=== PATIENT | male | born 1980 | race Caucasian/White ===

== ENCOUNTER 2024-08-19 10:02 | Inpatient (IN) | payer BC, OTHER ==
[~2024-08-19] VITALS: Ht 188 cm; Wt 109.0 kg
[2024-08-19] VITALS (24 sets, daily range): BP systolic 77–99; BP diastolic 36–62; PULSE 85–100; RESP 12–24; TEMP 98.9–99; O2SAT 90–100
--- NOTE | 2024-08-19 10:39 | ECG ---
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
--- NOTE | 2024-08-19 10:51 | ED.PDOC ---
History of present illness HPI Comments 44 y/o M, with PMHX of HTN, brought in by sister presents to the ED for CC of hyperglycemia. Per sister, patient has been having abnormally high blood sugar readings with associated symptoms constipation, disorientation, excessive thirst, and ataxia [id number]. Patient's sister comments, that patient received an ozempic shot which caused him to be lethargic and denied second dosage. Patient's sister endorses, new onset symptoms of incontinence starting today (08/19/24). Patient's blood pressure in triage read at 505 on glucometer. Patient unable to answer questions appropriately at this time no other symptoms or PMHX obtainable. Chief Complaint: Hyperglycemia Time Seen by MD: 10:40 Primary Care Provider: JAILYN History of present illness: Nurses Notes, Medications, Allergies Allergies: Coded Allergies: NO KNOWN ALLERGIES (Unverified , 10/02/14) Information Source: Relative (Sibling) Mode of Arrival: Wheelchair Timing: Days Duration: Since onset Prehospital treatment: None [place]: Confusion Symptoms: Confusion History of: Diabetes Modifying factors: Nothing Associated signs and symptoms: None Past Medical History PAST MEDICAL HISTORY: DM Surgical History: Denies all surgeries Family History Family History: No family hx of HTN Social History Smoker: Cigarettes, Less Than 1 Pack/Day Alcohol: Rarely Drugs: Denies Drug Use Lives In: Home Constitutional: denies: chills, diaphoresis, fatigue, fever, malaise, sweats, weakness, others EENTM: denies: blurred vision, double vision, ear bleeding, ear discharge, ear drainage, ear pain, ear ringing, eye pain, eye redness, hearing loss, mouth pain, mouth swelling, nasal discharge, nose bleeding, nose congestion, nose pain, photophobia, tearing, throat pain, throat swelling, voice changes, others Respiratory: denies: cough, hemoptysis, orthopnea, SOB at rest, shortness of breath, SOB with excertion, stridor, wheezing, others Cardiovascular: denies: chest pain, dizzy spells, diaphoresis, Dyspnea on exertion, edema, irregular heart beat, left arm pain, lightheadedness, palpitations, PND, syncope, others Gastrointestinal: denies: abdomen distended, abdominal pain, blood streaked bowels, constipated, diarrhea, dysphagia, difficulty swallowing, hematemesis, melena, nausea, poor appetite, poor fluid intake, rectal bleeding, rectal pain, vomiting, others Genitourinary: reports: frequency, incontinence; denies: burning, dysuria, flank pain, hematuria, penile discharge, penile sore, pain, testicle pain, testicle swelling, urgency, others Neurological: reports: others (disorientation); denies: dizziness, fainting, headache, left sided numbness, left sided weakness, numbness, paresthesia, pre- existing deficit, right sided numbness, right sided weakness, seizure, speech problems, tingling, tremors, weakness Musculoskeletal: denies: back pain, gout, joint pain, joint swelling, muscle pain, muscle stiffness, neck pain, others Integumetry: denies: bruises, change in color, change in hair/nails, dryness, laceration, lesions, lumps, rash, wounds, others Allergic/Immunocompromised: denies: Difficulty Healing, Frequent Infections, Hives, Itching, others Hematologic/Lymphatic: denies: anemia, blood clots, easy bleeding, easy bruising, swollen glands, others Endocrine: reports: excessive thirst; denies: excessive hunger, excessive sweating, excessive urination, flushing, intolerance to cold, intolerance to heat, unexplained weight gain, unexplained weight loss, others Psychiatric: denies: anxiety, bipolar disorder, depression, hopeless, panic disorder, schizophrenia, sleepless, suicidal, others All Other Systems: Reviewed and Negative Physical Exam General Appearance: Moderate Distress HEENT: Pale Conjuntivae (L), Pale Conjuntivae (R), Pharynx Normal, TMs Normal Neck: Full Range of Motion, Non-Tender, Normal, Normal Inspection Respiratory: Chest Non-Tender, Lungs Clear, No Accessory Muscle Use, No Respiratory Distress, Normal Breath Sounds Cardiovascular: No Edema, No JVD, No Murmur, No Gallop, Normal Peripheral Pulses, Regular Rate/Rhythm Breast Exam: Deferred Gastrointestinal: No Organomegaly, Non Tender, No Pulsatile Mass, Normal Bowel Sounds, Soft Genitalia: Deferred Pelvic: Deferred Rectal: Deferred Extremities: No calf tenderness, Normal capillary refill, No pedal edema Musculoskeletal : Apperance: Normal Neurologic: Alert, inspector machine 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 Was a procedure done?: No EKG EKG : Pulse Rate (adult): 87 [place]: Normal Cardiac Rhythm: NSR Block: None Hypertrophy: None ST: Normal Differential Diagnosis (DM) Differential Diagnosis: DKA, Hyperglycemia X-Ray, Labs, Meds, VS Vital Signs Date Time Temp Pulse Resp B/P (MAP) Pulse Ox O2 Delivery O2 Flow Rate FiO2 08/19/24 11:25 98.3 91 17 109/66 (80) 95 98.3 08/19/24 11:25 98.3 91 18 106/66 (79) 95 98.3 08/19/24 11: 91 18 95 Room Air 08/19/24 10:52 87 08/19/24 10:35 87 08/19/24 10:33 98.2 85 20 102/79 (87) 96 98.2 Lab Test 08/19/24 11:14 08/19/24 11:13 08/19/24 11:05 08/19/24 11:00 Range/Units POC Glucose 546 *H 501 *H 70-106 mg/dl Blood Gas Specimen Type Arterial Blood Gas Sample Site Right radial Blood Gas Patient Temperature 37.0 Arterial Blood Date Drawn [id number] Arterial Blood pH 7.611 *H 7.350-7.450 Arterial Blood Partial Pressure CO2 38.9 35.0-48.0 mmHg Arterial Blood Partial Pressure O2 67.6 L 83.0-108.0 mmHg Arterial Blood HCO3 38.3 H 21.0-28.0 mmol/L Arterial Blood Oxygen Saturation 94.4 94.0-98.0 % Arterial Blood Base Excess 15.5 H -2.0-3.0 mmol/L Arterial Blood Oxyhemoglobin 87.2 L 94.0-98.0 % Arterial Blood Carboxyhemoglobin 7.4 H 0.5-1.5 % Arterial Blood Methemoglobin 0.2 0.0-1.5 % Jasvir Test Yes Blood Gas Total Hemoglobin 15.20 13.5-17.5 g/dL Blood Gas Modality Room air Blood Gas Spontaneous Rate 18 FiO2 % 21.0 Blood Gas Critical Value Read Back Yes Blood Gas Notified Whom Md chapo mcdonnell Blood Gas Notified Time [id number] Blood Gas Notified By Rt b giron White Blood Count 37.8 *H 4.4-10.8 10^3/uL Red Blood Count 4.87 4.5-5.90 10^6/uL Hemoglobin 14.8 13.5-17.5 g/dL Hematocrit 41.9 41.0-53.0 % Mean Corpuscular Volume 86.1 80.0-100.0 fL Mean Corpuscular Hemoglobin 30.4 28.0-32.0 pg Mean Corpuscular Hemoglobin Concent 35.3 32.0-36.0 g/dL Red Cell Distribution Width 12.9 11.8-14.3 % Platelet Count 240 140-450 10^3/uL Mean Platelet Volume 10.1 6.9-10.8 fL Neutrophils (%) (Auto) 37.0-80.0 % Lymphocytes (%) (Auto) 10.0-50.0 % Monocytes (%) (Auto) 0.0-12.0 % Basophils (%) (Auto) 0.0-2.0 % Neutrophils # (Auto) 1.6-8.6 10 ^3/uL Lymphocytes # (Auto) 0.4-5.4 10 ^3/uL Monocytes # (Auto) 0-1.3 10 ^3/uL Differential Total Cells Counted Pending Neutrophils % (Manual) Pending Band Neutrophils % (Manual) Pending Lymphocytes % (Manual) Pending Monocytes % (Manual) Pending Eosinophils % (Manual) Pending Basophils % (Manual) Pending Metamyelocytes % (manual) Pending Myelocytes % (Manual) Pending Promyelocytes % (Manual) Pending Blast Cells % (Manual) Pending Reactive Lymphocytes Pending Platelet Estimate Pending Sodium Level 114 *L 136-145 mmol/L Potassium Level 2.9 L 3.5-5.1 mmol/L Chloride Level 51 L 98-107 mmol/L Carbon Dioxide Level > 40 *H 20-31 mmol/L Anion Gap 22.64182 H 5-15 Blood Urea Nitrogen 112 *H 9-23 mg/dL Creatinine 8.94 H 0.700-1.30 mg/dL Glomerular Filtration Rate Calc 7 >90 mL/min BUN/Creatinine Ratio 12.5 10.0-20.0 Serum Glucose 497 *H 74-106 mg/dL Lactic Acid Level 5.7 *H 0.4-2.0 mmol/L Calcium Level 10.9 H 8.7-10.4 mg/dL Beta-Hydroxybutyric Acid 0.498 H < 0.4 mmol/L Plasma/Serum Blood Alcohol < 3.0 <10 mg/dL Test 08/19/24 10:24 08/19/24 10:23 Range/Units POC Glucose 494 *H 502 *H 70-106 mg/dl Current Medications Medications (Trade) Dose Ordered Sig/Nikki Route Start Time Stop Time Status Last Admin Sodium Chloride 1,000 ml @ 1,000 mls/hr Q1H ONCE IVB 08/19/24 10:45 08/19/24 11:44 DC 08/19/24 11:18 Insulin Human Regular (InsuLIN R) 5 units ONCE ONCE IV 08/19/24 10:45 08/19/24 10:46 DC 08/19/24 11:24 CXR: IMPRESSION: No acute intrathoracic process. IV Hep-Lock was established. The patient was being given normal saline per sepsis protocol. The patient is blood sugar was over 500 on the Accu-Chek in 497 on the serum The patient was BUN is 112 The creatinine is 8.94 Because of the findings, the patient has a Friedman catheter being placed. The patient was also hyponatremic at 114 We are starting the patient on normal saline 3% as well as potassium The chloride level is significantly decreased at 51 The patient was diagnosis at this time is metabolic alkalosis because the CO2 is greater than 40 and the anion gap is 22.9 The 1st lactic acid level came back at 5.7 We will continue to hydrate the patient per sepsis protocol After blood cultures x2 were drawn, the patient was started on vancomycin and Rocephin IV piggyback An ABG was done showing a pH of 7.61 and a pCO2 and PO2 of 38 and 67 respectively We will continue to hydrate the patient and the patient will be admitted at this time. We have discussed the findings with the patient and they understand and agree with the management. Images Reviewed?: Images reviewed and evaluated by me Time of 1ST Reevaluation: 11:20 Reevaluation 1ST: Unchanged Patient Education/Counseling: Diagnosis, Treatment Family Education/Counseling: No Family Present Departure 1 Departure Time of Disposition: 12:12 Impression: Primary Impression: Metabolic alkalosis Additional Impressions: Diabetes type 2, uncontrolled Qualified Codes: E11.65 - Type 2 diabetes mellitus with hyperglycemia Hypokalemia Hyponatremia Hypochloremia Disposition: 09 ADMITTED INPATIENT Admit to: ICU Condition: Fair Critical Care Note Critical Care Time?: Yes (45 min-critical care time only) Stability Stability form required: Yes Unstable for transfer: ICU, CCU, PCU, LAURA (Intensive VS monitoring), ED Physician Assesment (Clinical assesment) Heart Score Heart Score: Heart Score Response (Comments) Value History N/A 0 EKG N/A 0 Age N/A 0 Risk Factors N/A 0 Troponin N/A 0 Total 0 I personally scribed for TRAVIS MCDONNELL MD ([email or web address]) on 08/19/24 at 10:51. Electronically submitted by Deisy Pizano ([email or web address]). I personally scribed for TRAVIS MCDONNELL MD (DVPASLE) on 08/19/24 at 10:52. Electronically submitted by Deisy Pizano ([employer]). I personally scribed for TRAVIS MCDONNELL MD (DVPASLE) on 08/19/24 at 11:12. Electronically submitted by Deisy Pizano ([employer]). TRAVIS MCDONNELL MD Aug 19, 2024 10:51
--- NOTE | 2024-08-19 11:04 | DVH ---
EXAM: XY CHEST PORTABLE HISTORY: pain 44-year-old male with chest pain. COMPARISON: None TECHNIQUE: Portable AP view of the chest was performed. FINDINGS: No pneumothorax, consolidative infiltrates, or pulmonary edema. The heart is borderline enlarged. IMPRESSION: No acute intrathoracic process.
[2024-08-19 11:11] LABS: Base Excess 15.5 mmol/L (-2.0-3.0)
[2024-08-19] MEDS: SODIUM CHLORIDE 0.9% 1,000 ML IVB ONE (11:18)
[2024-08-19] MEDS: InsuLIN REG 1unit/0.01ml Soln (100units/ml) IV ONE (11:24)
[2024-08-19 11:27] LABS: Hematocrit 41.9 % (41.0-53.0); Hemoglobin 14.8 g/dL (13.5-17.5); Mean Corpuscular Hemoglobin 30.4 pg (28.0-32.0); Mean Corpuscular Hgb Conc. 35.3 g/dL (32.0-36.0); Mean Corpuscular Volume 86.1 fL (80.0-100.0); Platelet Count (auto) 240 10^3/uL (140-450); Red Blood Cells 4.87 10^6/uL (4.5-5.90); Red Cell Distribution Width 12.9 % (11.8-14.3)
[2024-08-19 11:34] LABS: White Blood Cell 37.8 10^3/uL (4.4-10.8)
[2024-08-19 11:35] LABS: Basophils % (manual) 0 (0.0-2.0); Blast Cells 0; Eosinophils % (manual) 0 (0-7); Metamyelocytes % 0; Myelocytes % 0; Promyelocytes % 0; Reactive Lymphocytes 0
[2024-08-19 11:38] LABS: BUN/Creatinine Ratio 12.5 (10.0-20.0)
[2024-08-19 11:41] LABS: Anion Gap 22.99999 (5-15); Blood Alcohol < 3.0 mg/dL (<10); Calcium 10.9 mg/dL (8.7-10.4); Chloride 51 mmol/L (98-107); Potassium 2.9 mmol/L (3.5-5.1)
[2024-08-19 11:43] LABS: Blood Urea Nitrogen 112 mg/dL (9-23); Carbon Dioxide > 40 mmol/L (20-31); Glucose 497 mg/dL (74-106); Lactic Acid w/Reflex 5.7 mmol/L (0.4-2.0); Sodium 114 mmol/L (136-145)
[2024-08-19] MEDS: cefTRIAXone 1GM/50ML D5W 50 ML IV ONE (12:24)
[2024-08-19] MEDS: VANCOMYCIN 1GM/200ML PM 200 ML IV ONE (12:24)
[2024-08-19] MEDS ORDERED: POTASSIUM CHL 20MEQ/100ML 100 ML IV ONE (12:30)
[2024-08-19] MEDS: SODIUM CHLORIDE 0.9% 2,450 ML IV ONE (12:43)
[2024-08-19 13:03] LABS: Band Neutrophils % (manual) 1
[2024-08-19 13:04] LABS: Lymphocytes % (manual) 10 (10.0-50.0); Monocytes % (manual) 7 (0-12); Platelet Estimate Adequate
[2024-08-19] MEDS ORDERED: MORPHINE SULFATE INJ 2 MG/ml SYRG IV PRN (13:30)
[2024-08-19] MEDS ORDERED: ONDANSETRON HCL 4 MG/2 ML VIAL IV PRN (13:30)
[2024-08-19] MEDS ORDERED: NITROGLYCERIN 0.4 MG SL TAB SL PRN (13:30)
[2024-08-19] MEDS: SODIUM CHL 3% 500 ML IV ONE (13:50)
[2024-08-19 13:51] LABS: Urine Amorphous Crystal FEW /hpf (None Seen); Urine Bacteria FEW /hpf (None Seen); Urine Blood 1+ /uL (Negative); Urine Clarity Ex.Turbid (Clear); Urine Color Colorless (Yellow); Urine Mucus FEW (None Seen); Urine Protein, UAD 1+ (Negative); Urine Specific Gravity 1.017 (1.001-1.035); Urine Sperm PRESENT /hpf (None Seen); Urine Squamous Epithelial Cell FEW /hpf (<5); Urine Urobilinogen Normal (Negative); Urine WBC 16 /HPF (0-3); Urine pH 6.5 (5.0-9.0)
[2024-08-19 13:55] LABS: Creatinine, Urine 77.13 mg/dL (30.0-125.0)
[2024-08-19 13:57] LABS: Amphetamine Screen, Urine Neg (NEGATIVE); Barbiturate Scree,Urine Neg (NEGATIVE); Benzodiazephine Screen, Urine Neg (NEGATIVE); Cannabinoid Screen, Urine Neg (NEGATIVE); Cocaine Screen, Urine Neg (NEGATIVE); Opiate Scree,Urine Neg (NEGATIVE); Phencyclidine Screen, Urine Neg (NEGATIVE)
--- NOTE | 2024-08-19 14:43 | DVHHP2 ---
History of Present Illness Reason for Visit: [facility] History of Present Illness Jose Angel Moore is a 44-year-old male with past medical history of diabetes, was brought in by family for altered level of consciousness and hyperglycemia. On assessment patient is only able to tell me his name, he is not able to tell me his birthday, where he is at, or why he is here. Per patient's sister, he started taking ozempic about 11-12 days ago. He received his first and only injection and has been sick since. She states he has been vomiting for the last 11-12 days without any improvement. Yesterday she noticed his blood sugars were elevated and he was not acting like himself. The patient lives with his father, who he usually helps take care of him. Today his father called his sister stating he was wondering around the house not sure where he was. His sister came over and brought him to the hospital. His sister knows that he is diabetic, but does not know if he has any other medical diagnosis or what medications he takes. Patient began requiring more oxygen, was on 15 L non-rebreather with O2 sats 88- 91%. Patient agreeable to intubation. Once patient was placed flat for intubation he began vomiting copious amounts of coffee ground emesis. Patient was suctioned and successfully intubated. Dr. Chavez was called to bedside and did a bronchoscopy. OG tube was placed. Blood pressure is elevated. Will order nicardipine drip. Endocrine: Diabetes Past Surgical History: Other (left foot) Smoke: 1 pack per day ALCOHOL: none Drugs: None Lives: with Family Domestic Violence: Neg Review of Systems Constitutional: Yes: Malaise; No: Fever, Chills, Sweats, Weakness, Other Eyes: No: Pain, Vision change, Conjunctivae inflammation, Eyelid inflammation, Other, Redness ENT: No: Ear pain, Ear discharge, Nose pain, Nose discharge, Nose congestion, Mouth pain, Mouth swelling, Throat pain, Throat swelling, Other Respiratory: No: Cough, Dry, Shortness of breath, SOB with excertion, Wheezing, Hemoptysis, Pleuritic Pain, Sputum, Wheezing, Other Cardiovascular: No: Chest Pain, Palpitations, Orthopnea, Paroxysmal Noc. Dyspnea, Edema, Lt Headedness, Other Gastrointestinal: Nausea, Vomiting, Constipation; No: Abdominal Pain, Diarrhea, Melena, Hematochezia, Other Genitourinary: No Dysuria, No Frequency, No Incontinence, No Hematuria, No Retention, No Other Musculoskeletal: No: other, neck pain, shoulder pain, arm pain, back pain, hand pain, leg pain, foot pain Skin: No: Rash, Lesions, Jaundice, Bruising, Other Neurological: Weakness, Incoordination, Change in speech, Confusion; No: Numbness, Seizures, Other Allergies: Coded Allergies: NO KNOWN ALLERGIES (Unverified , 10/02/14) Medications Current Medications Medications Dose Ordered Sig/Nikki Route Start Time Stop Time Status Last Admin Dose Admin Ondansetron HCl 4 mg Q4HP PRN IV 08/19/24 13:30 UNV Enoxaparin Sodium 40 mg DAILY SC 08/20/24 10:00 UNV Nitroglycerin 0.4 mg Q5MINP PRN SL 08/19/24 13:30 UNV Morphine Sulfate 2 mg Q30M PRN IV 08/19/24 13:30 UNV Exam Vital Signs Vital Signs Date Time Temp Pulse Resp B/P (MAP) Pulse Ox O2 Delivery O2 Flow Rate FiO2 08/19/24 11:25 98.3 91 17 109/66 (80) 95 98.3 08/19/24 11:25 Room Air General Appearance: Alert, Other (Patient can tell me his name, but not his ) HEENT: Atraumatic, PERRLA Respiratory: Clear to auscultation, Normal air movement Cardiovascular: Regular rate, Normal S1, Normal S2 Labs/Xrays Labs Test 08/19/24 13:07 08/19/24 11:14 08/19/24 11:05 08/19/24 11:00 Range/Units POC Glucose 546 *H 70-106 mg/dl Blood Gas Specimen Type Arterial Blood Gas Sample Site Right radial Blood Gas Patient Temperature 37.0 Arterial Blood Date Drawn [id number] Arterial Blood pH 7.611 *H 7.350-7.450 Arterial Blood Partial Pressure CO2 38.9 35.0-48.0 mmHg Arterial Blood Partial Pressure O2 67.6 L 83.0-108.0 mmHg Arterial Blood HCO3 38.3 H 21.0-28.0 mmol/L Arterial Blood Oxygen Saturation 94.4 94.0-98.0 % Arterial Blood Base Excess 15.5 H -2.0-3.0 mmol/L Arterial Blood Oxyhemoglobin 87.2 L 94.0-98.0 % Arterial Blood Carboxyhemoglobin 7.4 H 0.5-1.5 % Arterial Blood Methemoglobin 0.2 0.0-1.5 % Jasvir Test Yes Blood Gas Total Hemoglobin 15.20 13.5-17.5 g/dL Blood Gas Modality Room air Blood Gas Spontaneous Rate 18 FiO2 % 21.0 Blood Gas Critical Value Read Back Yes Blood Gas Notified Whom Md chapo kirkpatrick Blood Gas Notified Time [id number] Blood Gas Notified By Rt svetlana giron White Blood Count 37.8 *H 4.4-10.8 10^3/uL Red Blood Count 4.87 4.5-5.90 10^6/uL Hemoglobin 14.8 13.5-17.5 g/dL Hematocrit 41.9 41.0-53.0 % Mean Corpuscular Volume 86.1 80.0-100.0 fL Mean Corpuscular Hemoglobin 30.4 28.0-32.0 pg Mean Corpuscular Hemoglobin Concent 35.3 32.0-36.0 g/dL Red Cell Distribution Width 12.9 11.8-14.3 % Platelet Count 240 140-450 10^3/uL Mean Platelet Volume 10.1 6.9-10.8 fL Neutrophils (%) (Auto) 37.0-80.0 % Lymphocytes (%) (Auto) 10.0-50.0 % Monocytes (%) (Auto) 0.0-12.0 % Basophils (%) (Auto) 0.0-2.0 % Neutrophils # (Auto) 1.6-8.6 10 ^3/uL Lymphocytes # (Auto) 0.4-5.4 10 ^3/uL Monocytes # (Auto) 0-1.3 10 ^3/uL Differential Total Cells Counted 100.0 100 Neutrophils % (Manual) 82 H 37.0-80.0 Band Neutrophils % (Manual) 1 Lymphocytes % (Manual) 10 10.0-50.0 Monocytes % (Manual) 7 0-12 Eosinophils % (Manual) 0 0-7 Basophils % (Manual) 0 0.0-2.0 Metamyelocytes % (manual) 0 Myelocytes % (Manual) 0 Promyelocytes % (Manual) 0 Blast Cells % (Manual) 0 Reactive Lymphocytes 0 Platelet Estimate Adequate Sodium Level 114 *L 136-145 mmol/L Potassium Level 2.9 L 3.5-5.1 mmol/L Chloride Level 51 L 98-107 mmol/L Carbon Dioxide Level > 40 *H 20-31 mmol/L Anion Gap 22.64717 H 5-15 Blood Urea Nitrogen 112 *H 9-23 mg/dL Creatinine 8.94 H 0.700-1.30 mg/dL Glomerular Filtration Rate Calc 7 >90 mL/min BUN/Creatinine Ratio 12.5 10.0-20.0 Serum Glucose 497 *H 74-106 mg/dL Calcium Level 10.9 H 8.7-10.4 mg/dL Beta-Hydroxybutyric Acid 0.498 H < 0.4 mmol/L Plasma/Serum Blood Alcohol < 3.0 <10 mg/dL EXAM: XY CHEST PORTABLE FINDINGS: No pneumothorax, consolidative infiltrates, or pulmonary edema. The heart is borderline enlarged. IMPRESSION: No acute intrathoracic process. Assessment/Plan Assessment/Plan Assessment: Metabolic alkalosis, Lactic acidosis, Acute Kidney failure, Diabetic ketoacidosis, Leukocytosis, Hyponatremia, Hypokalemia, Plan: Admit to ICU, Nephrology consult, Replace Potassium, Replace Sodium, BMP at 1500, IV hydration, IV antibiotics, Blood cultures, Urine cultures, Urine creat, NA, Place Friedman catheter, Manage/Monitor electrolytes closely, NPO, Antiemetics, CT Abdomen/Pelvis, Patient intubated, Pulmonology consulted, Bronchoscopy, Plan discussed with: Patient, Other (Sister) My Orders Orders - MANUEL HUTTON Procedure Category Date Status Time Drug Screen LAB 08/19/24 Logged 12:25 Urine Sodium LAB 08/19/24 Logged 12:35 Urine Creatinine LAB 08/19/24 Logged 12:35 Admit ADMIT 08/19/24 Transmitted 13:24 Code Status CODE 08/19/24 Transmitted 13:24 Ondansetron Hcl PHA 08/19/24 Logged (Zofran) 13:30 Enoxaparin Sodium PHA 08/20/24 Transmitted (Lovenox) 10:00 Fall Risk Precautions ROHINI 08/19/[address] 13:24 Complete Blood Count LAB 08/20/24 Verified 04:00 Comprehensive LAB 08/20/24 Verified Metabolic Panel 04:00 Npo (Nothing By DIET 08/19/24 Transmitted Mouth) Diet Lunch Condition: Critical ROHINI 08/19/24 In Process 13:24 Nitroglycerin PHA 08/19/24 Transmitted Sublingual (Ntrostat 13:30 Morphine Sulfate PHA 08/19/24 Transmitted Injection 13:30 Stat Ekg For Chest ROHINI 08/19/24 In Process Pain 13:24 Notify Md Of Changes [facility] 08/19/24 In Process From Base 13:24 Tax Intern For [facility] 08/19/24 In Process 24 Hours 13:24 Emergency Dysrhythmia [facility] 08/19/24 In Process Protocol 13:24 Rhythm Strips Once ROHINI 08/19/24 In Process Every Shift 13:24 Oxygen By Nasal RT 08/19/24 Transmitted Cannula 13:24 *Dr. Jimenez [facility] CONS 08/19/24 Transmitted -[place] 13:24 Basic Metabolic Panel LAB 08/19/24 Verified 15:00 Date of Service: Aug 19, 2024 Billing Provider: MANUEL HUTTON Common Visit Codes: [id number] INP/OBS CARE (HIGH) MANUEL HUTTON Aug 19, 2024 14:43
[2024-08-19] MEDS: SODIUM CHLORIDE 0.9% 1,000 ML IV SCH (14:46)
[2024-08-19] MEDS: POTASSIUM CHL 20MEQ/50ML 50 ML IV ONE (14:46)
[2024-08-19 15:40] LABS: Calcium 9.6 mg/dL (8.7-10.4)
[2024-08-19 15:45] LABS: BUN/Creatinine Ratio 14.8 (10.0-20.0)
[2024-08-19] MEDS ORDERED: DEXTROSE (50%) 50ML SYRG IV PRN ×2 (15:45→19:15)
[2024-08-19 15:46] LABS: Chloride 58 mmol/L (98-107)
--- NOTE | 2024-08-19 15:51 | DVHINCON2 ---
Date of service: Aug 19, 2024 Reason for Consultation Acute kidney injury History of Present Illness 44-year-old male with past medical history of diabetes patient was a poor historian in his currently confused. But he does reports throwing up over the last several days. Per EMS records patient noted to have significant hyperglycemia and abnormal labs. Nephrology consulted for acute kidney injury and electrolyte abnormalities. Patient's baseline renal function is unknown as his last known blood draw in this hospital was approximately 10 years ago. Patient patient has dry lips dry mucous membranes sunken eyes Allergies: Coded Allergies: NO KNOWN ALLERGIES (Unverified , 10/02/14) Current Medications Current Medications Medications (Trade) Dose Ordered Sig/Nikki Route PRN Reason Start Time Stop Time Status Last Admin Ondansetron HCl (Zofran) 4 mg Q4HP PRN IV NAUSEA / VOMITING 08/19/24 13:30 Enoxaparin Sodium (Lovenox) 30 mg DAILY SC 08/20/24 10:00 Nitroglycerin (Ntrostat Sublingual) 0.4 mg Q5MINP PRN SL FOR CHEST PAIN 08/19/24 13:30 Morphine Sulfate 2 mg Q30M PRN IV FOR CHEST PAIN 08/19/24 13:30 Sodium Chloride 1,000 ml @ 125 mls/hr Q8H IV 08/19/24 14:15 08/19/24 14:46 Diagnostic Test (Pha) (Accu-Chek Comfort Curve T) 1 strip ACHS 08/19/24 17:00 UNV Insulin Human Regular (InsuLIN R) HS SC 08/19/24 22:00 UNV Insulin Human Regular (InsuLIN R) AC SC 08/19/24 17:00 UNV Dextrose 50 ml UD PRN IV Blood Sugar LESS THAN 60 08/19/24 15:45 UNV Magnesium Sulfate/ Dextrose 100 ml @ 100 mls/hr Q1HR IV 08/19/24 16:00 08/19/24 17:59 UNV Vancomycin HCl 0 ml @ 0 mls/hr UD IV 08/19/24 16:00 UNV Cefepime HCl 50 ml @ 12.5 mls/hr Q12HR IV 08/19/24 22:00 UNV Review of Systems Emesis H&P Exam Vital Signs/I&O Vital Sign Date Time Temp Pulse Resp B/P (MAP) Pulse Ox O2 Delivery O2 Flow Rate FiO2 08/19/24 11:25 98.3 91 17 109/66 (80) 95 98.3 08/19/24 11:25 Room Air Physical Exam Middle-aged male Jittery and anxious Mildly confused Dry mucous membranes No no JVD elevation Regular rate and rhythm No pitting edema Friedman catheter Labs/Diagnostic Data Labs/Diagnostic Data Laboratory Tests Test 08/19/24 15:07 08/19/24 13:07 08/19/24 11:25 08/19/24 11:14 Range/Units Lactic Acid Level 4.6 *H 0.4-2.0 mmol/L Urine Color Colorless Yellow Urine Clarity Ex.turbid Clear Urine pH 6.5 5.0-9.0 Urine Specific [place] 1.017 1.001-1.035 Urine Protein 1+ H Negative Urine Ketones Negative Negative Urine Blood 1+ H Negative /uL Urine Nitrite Negative Negative Urine Bilirubin Negative Negative Urine Urobilinogen Normal Negative mg/dL Urine Leukocyte Esterase Trace Negative /uL Urine RBC 5 0 - 3 /hpf Urine Microscopic WBC 16 H 0-3 /HPF Urine Squamous Epithelial Cells Few <5 /hpf Urine Renal Epithelial Cells Few None Seen /hpf Urine Amorphous Crystals Few None Seen /hpf Urine Bacteria Few H None Seen /hpf Urine Mucus Few None Seen Urine Sperm Present None Seen /hpf Urine Creatinine 77.13 30.0-125.0 mg/dL Urine Sodium 15 L 40-220 mmol/L Urine Glucose 3+ H Normal mg/dL Urine Opiates Screen Neg NEGATIVE Urine Fentanyl Screen Neg NEGATIVE Urine Barbiturates Screen Neg NEGATIVE Urine Phencyclidine Screen Neg NEGATIVE Urine Amphetamines Screen Neg NEGATIVE Urine Benzodiazepines Screen Neg NEGATIVE Urine Cocaine Screen Neg NEGATIVE Urine Cannabinoids Screen Neg NEGATIVE POC Glucose 546 *H 70-106 mg/dl Test 08/19/24 11:13 08/19/24 11:05 08/19/24 11:00 08/19/24 10:24 Range/Units POC Glucose 501 *H 494 *H 70-106 mg/dl Blood Gas Specimen Type Arterial Blood Gas Sample Site Right radial Blood Gas Patient Temperature 37.0 Arterial Blood Date Drawn [id number] Arterial Blood pH 7.611 *H 7.350-7.450 Arterial Blood Partial Pressure CO2 38.9 35.0-48.0 mmHg Arterial Blood Partial Pressure O2 67.6 L 83.0-108.0 mmHg Arterial Blood HCO3 38.3 H 21.0-28.0 mmol/L Arterial Blood Oxygen Saturation 94.4 94.0-98.0 % Arterial Blood Base Excess 15.5 H -2.0-3.0 mmol/L Arterial Blood Oxyhemoglobin 87.2 L 94.0-98.0 % Arterial Blood Carboxyhemoglobin 7.4 H 0.5-1.5 % Arterial Blood Methemoglobin 0.2 0.0-1.5 % Jasvir Test Yes Blood Gas Total Hemoglobin 15.20 13.5-17.5 g/dL Blood Gas Modality Room air Blood Gas Spontaneous Rate 18 FiO2 % 21.0 Blood Gas Critical Value Read Back Yes Blood Gas Notified Whom Md chapo kirkpatrick Blood Gas Notified Time [id number] Blood Gas Notified By Rt svetlana giron White Blood Count 37.8 *H 4.4-10.8 10^3/uL Red Blood Count 4.87 4.5-5.90 10^6/uL Hemoglobin 14.8 13.5-17.5 g/dL Hematocrit 41.9 41.0-53.0 % Mean Corpuscular Volume 86.1 80.0-100.0 fL Mean Corpuscular Hemoglobin 30.4 28.0-32.0 pg Mean Corpuscular Hemoglobin Concent 35.3 32.0-36.0 g/dL Red Cell Distribution Width 12.9 11.8-14.3 % Platelet Count 240 140-450 10^3/uL Mean Platelet Volume 10.1 6.9-10.8 fL Neutrophils (%) (Auto) 37.0-80.0 % Lymphocytes (%) (Auto) 10.0-50.0 % Monocytes (%) (Auto) 0.0-12.0 % Basophils (%) (Auto) 0.0-2.0 % Neutrophils # (Auto) 1.6-8.6 10 ^3/uL Lymphocytes # (Auto) 0.4-5.4 10 ^3/uL Monocytes # (Auto) 0-1.3 10 ^3/uL Differential Total Cells Counted 100.0 100 Neutrophils % (Manual) 82 H 37.0-80.0 Band Neutrophils % (Manual) 1 Lymphocytes % (Manual) 10 10.0-50.0 Monocytes % (Manual) 7 0-12 Eosinophils % (Manual) 0 0-7 Basophils % (Manual) 0 0.0-2.0 Metamyelocytes % (manual) 0 Myelocytes % (Manual) 0 Promyelocytes % (Manual) 0 Blast Cells % (Manual) 0 Reactive Lymphocytes 0 Platelet Estimate Adequate Sodium Level 114 *L 136-145 mmol/L Potassium Level 2.9 L 3.5-5.1 mmol/L Chloride Level 51 L 98-107 mmol/L Carbon Dioxide Level > 40 *H 20-31 mmol/L Anion Gap 22.87212 H 5-15 Blood Urea Nitrogen 112 *H 9-23 mg/dL Creatinine 8.94 H 0.700-1.30 mg/dL Glomerular Filtration Rate Calc 7 >90 mL/min BUN/Creatinine Ratio 12.5 10.0-20.0 Serum Glucose 497 *H 74-106 mg/dL Hemoglobin A1c 11.7 H <5.7 % A1C Lactic Acid Level 5.7 *H 0.4-2.0 mmol/L Calcium Level 10.9 H 8.7-10.4 mg/dL Beta-Hydroxybutyric Acid 0.498 H < 0.4 mmol/L Plasma/Serum Blood Alcohol < 3.0 <10 mg/dL Test 08/19/24 10:23 Range/Units POC Glucose 502 *H 70-106 mg/dl Assessment Acute kidney injury in the setting of hypotension and volume depletion Metabolic alkalosis in the setting of vomiting-> chloride depletion Hypokalemia Severe hyperglycemia Hyponatremia in the setting of hyperglycemia hyperosmolar state Uncontrolled diabetes Potassium replacement IV fluid with normal saline Repeat labs Start insulin treatment for hyperglycemia Strict Is&Os Patient has severe KATE however no baseline renal function to determine chr onicity We will obtain ultrasound of the kidney to evaluate kidney size Guarded prognosis critically ill time spent 40mins Plan discussed with: Patient MERLIN ROBLES MD Aug 19, 2024 15:51
[2024-08-19 15:53] LABS: Sodium 116 mmol/L (136-145)
[2024-08-19 15:54] LABS: Anion Gap 17.99999 (5-15); Blood Urea Nitrogen 130 mg/dL (9-23); Carbon Dioxide > 40 mmol/L (20-31); Glucose 478 mg/dL (74-106)
[2024-08-19] MEDS ORDERED: MAGNESIUM SULFATE 1GM/100ML 100 ML IV SCH (16:00)
[2024-08-19] MEDS ORDERED: VANCOMYCIN PER PHARMACY 0 MG IV SCH (16:00)
--- NOTE | 2024-08-19 16:07 | DVH ---
CT CT AB PEL WO CON-NO ORAL OR IV INDICATION: nausea/vomiting : 44 old Male nausea/vomiting EXAM DATE: 08/19/2024 02:21 PM COMPARISON: None RADIATION DOSE: CTDIvol: 25 mGy, DLP: 1736 mGy*cm PROCEDURE: Helical CT images were obtained of the abdomen and pelvis without IV contrast Sagittal and coronal reconstructions are provided. ORAL CONTRAST: None. ADDITIONAL IMAGES / REFORMATS: None All C T scans at this medical facility are performed using dose modulation techniques as appropriate to a p erformed exam including the following: Automated exposure control was utilized; adjustment of the MA and/or KV according to patient size; and use of iterative reconstruction technique. FINDINGS: LUNG BASE: Normal. LIVER: Normal. GALLBLADDER AND BILIARY TREE: Gallstone in the gallbladder. No intra- or extrahepatic biliary ductal dilation. PANCREAS: Normal. SPLEEN: Normal. BOWEL: Distended stomach. Normal appendix. ADRENALS: Normal. KIDNEYS AND URETER: Normal. BLADDER: Friedman. REPRODUCTIVE ORGANS: Normal. LYMPH NODES:No lymphadenopathy. PERITONEUM: No ascites or free air. No other fluid collection. VESSELS: Scattered atherosclerotic calcifications are noted. RETROPERITONEUM: Normal. ABDOMINAL WALL: Normal. BONES: Scattered osseous degenerative changes are noted. Left femur hardware. IMPRESSION: No acute intraabdominal abnormality. Cholelithiasis. Prominent stomach distention, nonspecific finding.
[2024-08-19 16:11] LABS: Base Excess 12.9 mmol/L (-2.0-3.0)
--- NOTE | 2024-08-19 16:49 | DVH ---
CHEST RADIOGRAPH Indication: SOB Technique: Single frontal view of the chest was obtained COMPARISON: XY CHEST PORTABLE on DOS: 08/19/24 FINDINGS: Lines and Tubes: None Lungs: Clear Pleura: No effusion. No pneumothorax. Cardiomediastinal contours: Unremarkable Bones: Unremarkable IMPRESSION: No acute disease.
[2024-08-19] MEDS ORDERED: ACCU-CHEK COMFORT CURVE STRIP VI SCH (17:00)
[2024-08-19] MEDS ORDERED: InsuLIN REG 1unit/0.01ml Soln (100units/ml) SC SCH ×3 (17:00→22:00)
[2024-08-19] MEDS: ETOMIDATE (2MG/ML) 20ML VIAL IV ONE ×2 (17:05→17:55)
[2024-08-19] MEDS: ROCURONIUM 10MG/ML 10ML VIAL IV ONE ×2 (17:06→17:55)
[2024-08-19] MEDS: MIDAZOLAM DRIP 50 mg/50mL 50 ML IV SCH (17:11)
[2024-08-19] MEDS ORDERED: VANCOMYCIN 1GM/200ML PM 200 ML IV ONE (17:15)
[2024-08-19] MEDS ORDERED: NOREPINEPHRINE 8 MG/250ML KIT 250 ML IV SCH (17:15)
[2024-08-19 17:29] LABS: Lipase 41 U/L (12-53)
[2024-08-19 17:31] LABS: Amylase 47 U/L (30-118)
[2024-08-19] MEDS: fentaNYL Drip 2500mCg/250mlNS 250 ML IV ONE ×2 (17:55→17:56)
[2024-08-19] MEDS: MIDAZOLAM DRIP 50 mg/50mL 50 ML IV ONE (17:56)
--- NOTE | 2024-08-19 18:12 | DVH ---
CHEST RADIOGRAPH Indication: POST INTUBATION Technique: Single frontal view of the chest was obtained Comparison: XY CHEST XRAY 1 VIEW on DOS: 08/19/24, XY CHEST PORTABLE on DOS: 08/19/24 FINDINGS: Lines and Tubes: Endotracheal and enteric tubes are in satisfactory position. Lungs: Bilateral lower lung zone opacities. Pleura: No effusion. No pneumothorax. Cardiomediastinal contours: Unremarkable Bones: No acute osseous abnormality. IMPRESSION: Bilateral lower lung zone pneumonia/atelectasis. Endotracheal and enteric tubes are in satisfactory position.
[2024-08-19] MEDS: POTASSIUM CHLORIDE 40 MEQ, LIDOCAINE 1% (LOCAL ANESTH.) 4 ML in SODIUM CHL 0.9% 250 ML IV ONE (18:40)
[2024-08-19] MEDS: InsuLIN REG 1unit/0.01ml Soln (100units/ml) SC ONE (18:51)
[2024-08-19] MEDS: ALBUTEROL SULF 2.5 MG/0.5ML(0.5%) NEB SOLN NEB SCH (19:13)
[2024-08-19] MEDS: IPRATROPIUM BROM 0.5 MG/2.5ML INH SOL NEB SCH (19:13)
[2024-08-19 19:14] LABS: Base Excess 16.3 mmol/L (-2.0-3.0)
[2024-08-19 19:28] LABS: Alanine Aminotransferase 21 U/L (7-40); Alkaline Phosphatase 81 U/L (46-116); Anion Gap 14 (5-15); BUN/Creatinine Ratio 16.7 (10.0-20.0); Calcium 9.1 mg/dL (8.7-10.4); Chloride 102 mmol/L (98-107); Potassium 3.7 mmol/L (3.5-5.1); Total Protein 6.8 g/dL (5.7-8.2)
[2024-08-19 19:29] LABS: Bilirubin, Total 0.5 mg/dL (0.2-1.0)
[2024-08-19 19:30] LABS: Aspartate Aminotransferase 10 U/L (13-40); Blood Urea Nitrogen 42 mg/dL (9-23); Carbon Dioxide 17 mmol/L (20-31); Glucose 114 mg/dL (74-106); Sodium 133 mmol/L (136-145)
--- NOTE | 2024-08-19 19:49 | DVHINCON2 ---
Date of service: Aug 19, 2024 Referring Physician Yesi Morrison NP Reason for Consultation Acute hypoxic respiratory failure requiring mechanical vent and aspiration pneumonia. History of Present Illness A 44-year-old man with past medical history of diabetes mellitus who was brought in today by family for altered level of consciousness and hyperglycemia. Per patient's sister, he started Ozempic about 11-12 days ago, received his first and only injection and has been sick since. She states he has been vomiting for the last 11-12 days without any improvement. Yesterday she noticed his blood sugars were elevated and he was not acting like himself. Today patient was noted to be disoriented, wandering around the house and sister brought him to ED. She is unsure if patient has any other medical diagnoses or what medications he takes. In the ED pt was on 15 L non-rebreather with O2 sats 88-91%, requiring more oxygen. Patient was agreeable to intubation. Once patient was placed flat for intubation, he vomited copious amounts of coffee ground emesis. Patient was suctioned and successfully intubated with plan for bronchoscopy. He was admitted for further care, and pulmonary consultation is requested for evaluation and management due to the above findings. Review of Systems: 14-point review of systems negative unless otherwise noted above. Past Medical History: Diabetes mellitus Past Surgical History: Left foot surgery Medications: Reviewed. Allergies: No known drug allergies. Family History: No family history of premature CAD. No family history of lung disorders. Social History: Smoker. Smokes 1 pack per day No alcohol or illicit drug use. Allergies: Coded Allergies: NO KNOWN ALLERGIES (Unverified , 10/02/14) Current Medications Current Medications Medications (Trade) Dose Ordered Sig/Nikki Route PRN Reason Start Time Stop Time Status Last Admin Ondansetron HCl (Zofran) 4 mg Q4HP PRN IV NAUSEA / VOMITING 08/19/24 13:30 Enoxaparin Sodium (Lovenox) 30 mg DAILY SC 08/20/24 10:00 Nitroglycerin (Ntrostat Sublingual) 0.4 mg Q5MINP PRN SL FOR CHEST PAIN 08/19/24 13:30 Morphine Sulfate 2 mg Q30M PRN IV FOR CHEST PAIN 08/19/24 13:30 Sodium Chloride 1,000 ml @ 125 mls/hr Q8H IV 08/19/24 14:15 08/19/24 14:46 Diagnostic Test (Pha) (Accu-Chek Comfort Curve T) 1 strip ACHS 08/19/24 17:00 Cancel Insulin Human Regular (InsuLIN R) HS SC 08/19/24 22:00 08/19/24 17:17 DC Insulin Human Regular (InsuLIN R) AC SC 08/19/24 17:00 08/19/24 17:17 DC Dextrose 50 ml UD PRN IV Blood Sugar LESS THAN 60 08/19/24 15:45 08/19/24 19:21 DC Magnesium Sulfate/ Dextrose 100 ml @ 100 mls/hr Q1HR IV 08/19/24 16:00 08/19/24 16:41 DC Vancomycin HCl 0 ml @ 0 mls/hr UD IV 08/19/24 16:00 Cefepime HCl 50 ml @ 12.5 mls/hr DAILY@2200 IV 08/19/24 22:00 Norepinephrine Bitartrate 250 ml @ 3.75 mls/hr Q24H IV 08/19/24 17:15 Hold Midazolam HCl 50 ml @ 1 mls/hr Q24H IV 08/19/24 17:15 08/19/24 17:11 Fentanyl Citrate 250 ml @ 2.5 mls/hr Q24H IV 08/19/24 17:15 Ipratropium Hector (Atrovent Medneb) 0.5 mg Q6HR NEB 08/19/24 18:00 Albuterol (Ventolin Medneb) 2.5 mg Q6HR NEB 08/19/24 18:00 Insulin Human Regular (InsuLIN R) Q6HR SC 08/19/24 18:00 08/19/24 19:07 DC Nicardipine HCl 250 ml @ 50 mls/hr Q5H IV 08/19/24 17:45 Diagnostic Test (Pha) (Accu-Chek Comfort Curve T) 1 strip Q6HR 08/20/24 00:00 08/19/24 19:07 DC Diagnostic Test (Pha) (Accu-Chek Comfort Curve T) 1 strip IQ4HR 08/19/24 20:00 Insulin Human Regular (InsuLIN R) IQ4HR SC 08/19/24 20:00 Dextrose 50 ml UD PRN IV Blood Sugar LESS THAN 60 08/19/24 19:15 Vital Signs Vital Signs Date Time Temp Pulse Resp B/P (MAP) Pulse Ox O2 Delivery O2 Flow Rate FiO2 08/19/24 19:00 90/47 08/19/24 17:46 99 16 89 08/19/24 13:40 Room Air* 0 21 08/19/24 11:25 98.3 98.3 Physical Exam Gen.: Patient lying in bed in medical ICU. Sedated, intubated on mechanical ventilator. Head: Normocephalic, atraumatic. Eyes: PERRLA. Ears: Normal external anatomy. Throat: Endotracheal tube and orogastric tube in place. Neck: Supple, trachea midline. Chest: Transmitted breath sounds bilaterally. Decreased air entry bilaterally. No wheezing. Bibasilar crackles. Cardiovascular: Positive S1, positive S2. Regular rate and rhythm. Abdomen: Positive bowel sounds in all 4 quadrants. Soft, nontender, nondistended. : Friedman in place. Normal external genitalia. Rectal: Deferred. Skin: Warm, dry. Intact. Extremities: 2+ radial pulses bilaterally. No lower extremity edema. Neuro: Sedated. Labs/Diagnostic Data Labs Test 08/19/24 19:02 08/19/24 16:55 08/19/24 16:07 08/19/24 15:50 Range/Units Blood Gas Specimen Type Arterial Blood Gas Sample Site Right radial Blood Gas Patient Temperature 37.0 Arterial Blood Date Drawn [id number] Arterial Blood pH 7.565 *H 7.350-7.450 Arterial Blood Partial Pressure CO2 45.6 35.0-48.0 mmHg Arterial Blood Partial Pressure O2 91.7 83.0-108.0 mmHg Arterial Blood HCO3 40.4 H 21.0-28.0 mmol/L Arterial Blood Oxygen Saturation 97.2 94.0-98.0 % Arterial Blood Base Excess 16.3 H -2.0-3.0 mmol/L Arterial Blood Oxyhemoglobin 95.7 94.0-98.0 % Arterial Blood Carboxyhemoglobin 1.1 0.5-1.5 % Arterial Blood Methemoglobin 0.4 0.0-1.5 % Jasvir Test Modified Blood Gas Total Hemoglobin 13.40 L 13.5-17.5 g/dL Blood Gas Set Respiration Rate 22.0 Blood Gas Modality Vent - p/c FiO2 % 100.0 Blood Gas Pressure Support 26 Blood Gas PEEP or CPAP 12.0 Blood Gas Comments Pc , 30/04 Blood Gas Critical Value Read Back Yes Blood Gas Notified Whom elda Chavez md Blood Gas Notified Time [id number] Blood Gas Notified By amando Woodall, linda D-Dimer, Quantitative 1.19 H 0.0-0.49 mg/L FEU Sodium Level 133 #L 136-145 mmol/L Potassium Level 3.7 3.5-5.1 mmol/L Chloride Level 102 # 98-107 mmol/L Carbon Dioxide Level 17 #L 20-31 mmol/L Anion Gap 14 5-15 Blood Urea Nitrogen 42 #H 9-23 mg/dL Creatinine 2.52 #H 0.700-1.30 mg/dL Glomerular Filtration Rate Calc 32 >90 mL/min BUN/Creatinine Ratio 16.7 10.0-20.0 Serum Glucose 114 #H 74-106 mg/dL Calcium Level 9.1 8.7-10.4 mg/dL Total Bilirubin 0.5 0.2-1.0 mg/dL Aspartate Amino Transferase (AST) 10 L 13-40 U/L Alanine Aminotransferase (ALT) 21 7-40 U/L Alkaline Phosphatase 81 46-116 U/L Creatine Kinase 115 46-171 U/L Total Protein 6.8 5.7-8.2 g/dL Albumin 4.0 3.2-4.8 g/dL Amylase Level 47 30-118 U/L Lipase 41 12-53 U/L Blood Gas Liter Flow 15.00 POC Glucose 477 *H 70-106 mg/dl Test 08/19/24 15:07 08/19/24 13:07 08/19/24 11:25 08/19/24 11:05 Range/Units Magnesium Level 3.2 H 1.6-2.6 mg/dL Lactic Acid Level 4.6 *H 0.4-2.0 mmol/L Urine Color Colorless Yellow Urine Clarity Ex.turbid Clear Urine pH 6.5 5.0-9.0 Urine Specific [place] 1.017 1.001-1.035 Urine Protein 1+ H Negative Urine Ketones Negative Negative Urine Blood 1+ H Negative /uL Urine Nitrite Negative Negative Urine Bilirubin Negative Negative Urine Urobilinogen Normal Negative mg/dL Urine Leukocyte Esterase Trace Negative /uL Urine RBC 5 0 - 3 /hpf Urine Microscopic WBC 16 H 0-3 /HPF Urine Squamous Epithelial Cells Few <5 /hpf Urine Renal Epithelial Cells Few None Seen /hpf Urine Amorphous Crystals Few None Seen /hpf Urine Bacteria Few H None Seen /hpf Urine Mucus Few None Seen Urine Sperm Present None Seen /hpf Urine Creatinine 77.13 30.0-125.0 mg/dL Urine Sodium 15 L 40-220 mmol/L Urine Glucose 3+ H Normal mg/dL Urine Opiates Screen Neg NEGATIVE Urine Fentanyl Screen Neg NEGATIVE Urine Barbiturates Screen Neg NEGATIVE Urine Phencyclidine Screen Neg NEGATIVE Urine Amphetamines Screen Neg NEGATIVE Urine Benzodiazepines Screen Neg NEGATIVE Urine Cocaine Screen Neg NEGATIVE Urine Cannabinoids Screen Neg NEGATIVE Blood Gas Spontaneous Rate 18 Test 08/19/24 11:00 Range/Units White Blood Count 37.8 *H 4.4-10.8 10^3/uL Red Blood Count 4.87 4.5-5.90 10^6/uL Hemoglobin 14.8 13.5-17.5 g/dL Hematocrit 41.9 41.0-53.0 % Mean Corpuscular Volume 86.1 80.0-100.0 fL Mean Corpuscular Hemoglobin 30.4 28.0-32.0 pg Mean Corpuscular Hemoglobin Concent 35.3 32.0-36.0 g/dL Red Cell Distribution Width 12.9 11.8-14.3 % Platelet Count 240 140-450 10^3/uL Mean Platelet Volume 10.1 6.9-10.8 fL Neutrophils (%) (Auto) 37.0-80.0 % Lymphocytes (%) (Auto) 10.0-50.0 % Monocytes (%) (Auto) 0.0-12.0 % Basophils (%) (Auto) 0.0-2.0 % Neutrophils # (Auto) 1.6-8.6 10 ^3/uL Lymphocytes # (Auto) 0.4-5.4 10 ^3/uL Monocytes # (Auto) 0-1.3 10 ^3/uL Differential Total Cells Counted 100.0 100 Neutrophils % (Manual) 82 H 37.0-80.0 Band Neutrophils % (Manual) 1 Lymphocytes % (Manual) 10 10.0-50.0 Monocytes % (Manual) 7 0-12 Eosinophils % (Manual) 0 0-7 Basophils % (Manual) 0 0.0-2.0 Metamyelocytes % (manual) 0 Myelocytes % (Manual) 0 Promyelocytes % (Manual) 0 Blast Cells % (Manual) 0 Reactive Lymphocytes 0 Platelet Estimate Adequate Hemoglobin A1c 11.7 H <5.7 % A1C Beta-Hydroxybutyric Acid 0.498 H < 0.4 mmol/L Plasma/Serum Blood Alcohol < 3.0 <10 mg/dL Assessment Impression: Acute hypoxic respiratory failure On mechanical ventilator Gastrointestinal hemorrhage, upper Aspiration pneumonia MAGDALENA mucous plug Obesity BMI 35.9 Plan: s/p intubation on mechanical ventilator. Placed on PC mode due to high peak pressure Vent settings: PCV mode; respiratory rate 22; I-Pressure 26; I-time 0.8, PEEP 12, FiO2 100% Titrate FIO2 to keep O2 saturation above 90%. VAP bundle. Daily ABG and CXR while intubated Sedate for ventilator synchrony - on Versed CXR image and report reviewed. Devices in place. Bilateral lower lung zone pneumonia/atelectasis.. ABG reviewed, alkalemia. Patient underwent therapeutic bronchoscopy today with clearing of mucous plugging. Aspirated coffee ground material removed from within the bilateral lungs. See separate procedure note for details. Continue bronchodilators. Continue antibiotics. Pressors as necessary for hemodynamic support On Levophed Titrate to keep mean arterial pressure greater than 65 mmHg. Monitor hemoglobin Follow up GI recs IV fluids with NS at 125 ml/hr Monitor renal function Monitor electrolytes. Supplement as necessary. Potassium supplementation Monitor ins and outs. Accu-Cheks, ISS GI prophylaxis. DVT prophylaxis. Prognosis: Poor given patient's multiple co-morbidities. Condition: Critical Rest of plan per hospitalist and other consultants. A total of 36 minutes of critical care time was spent reviewing the patient record, examining the patient, making a diagnostic and therapeutic plan, discussing this plan with the medical personnel, following up on diagnostic studies and following the patient for clinical stability excluding any and all procedures. At least 50% of this time was spent in direct, [id number] contact. Thank you, DEON Morrison, for allowing me to participate in this patient's care. Further recommendations will depend on the patient's clinical course. Please do not hesitate to contact me if you have any questions or concerns. This medical document was created using an electronic medical record system with [employer] dictation system. Although these documentations are being carefully reviewed, there may still be some phonetic and typographical changes. The errors are purely typographical, due to imperfection on the software program, and do not reflect any compromise in the patient's medical care. Plan discussed with: Other (DEON Morrison/) LINO CHAVEZ MD Aug 19, 2024 19:49
--- NOTE | 2024-08-19 19:50 | DVHNC2 ---
Procedure - Bronchoscopy procedure note: Indications: Aspiration pneumonia, Possible mucous plugging. Medicines: See [employer] notes. Complications: None Procedure: Patient medications and allergies reviewed. The risks and benefits of the procedure and the sedation options and risk were discussed with the patient's healthcare proxy. All questions were answered and informed consent was ob tained. Patient identification and proposed procedure were verified prior to the procedure by the physician, and a nurse, and the respiratory therapist in ICU room. The heart rate, respiratory rate, oxygen saturations, blood pressure, adequacy of pulmonary ventilation, and response to care were monitored throughout the procedure. The physical status of the patient was re-assessed after the procedure. After obtaining informed consent, the bronchoscope was introduced through the endotracheal tube and advanced into the trachea bronchial tree of both lungs. The procedure was accomplished without difficulty. The patient tolerated the procedure well. Findings: The trachea is in normal caliber. The jasbir is sharp. The tracheobronchial tree of the right lung was examined to at least the first subsegmental level. The bronchial mucosa and anatomy in the right lung are normal. There are no endobronchial lesions. There was scant aspirated coffee ground material from right main stem bronchus onward throughout R1-R10. These secretions were easily removed. The left upper lobe, lingula, and left lower lobe were examined to at least the first subsegmental level. Bronchial mucosa and anatomy in the left upper lobe and lingula are normal. There were no endobronchial lesions. There was copious whitish secretions from left main stem bronchus onward throughout L1-L10. Mucous plugging removed from L6-L10. There was no active bleeding at the completion of the procedure. Estimated blood loss: Less than 5 mL. Impression: Left upper and lower lobe atelectasis due to mucous plugging Mucous plugging from L1-L10 Therapeutic bronchoscopy with clearance of mucous plugging as Recommendation: Pulmonary toileting Procedure codes: 09122, bronchoscopy, rigid and flexible, including fluoroscopic guidance, one performed; with bronchial endobronchial removal of mucous plugging, single or multiple sites LINO CARRION MD Aug 19, 2024 19:50
[2024-08-19 20:13] LABS: Anion Gap 18 (5-15); Calcium 9.5 mg/dL (8.7-10.4)
[2024-08-19 20:18] LABS: BUN/Creatinine Ratio 14.3 (10.0-20.0)
[2024-08-19 20:20] LABS: Carbon Dioxide 37 mmol/L (20-31); Chloride 61 mmol/L (98-107); Potassium 3.3 mmol/L (3.5-5.1)
[2024-08-19 20:23] LABS: Blood Urea Nitrogen 130 mg/dL (9-23); Glucose 446 mg/dL (74-106); Sodium 116 mmol/L (136-145)
[2024-08-19 20:59] LABS: Base Excess 13.5 mmol/L (-2.0-3.0)
[2024-08-19] MEDS: SODIUM CHLORIDE 0.9% 500 ML IV ONE (21:03)
[2024-08-19] MEDS: fentaNYL Drip 2500mCg/250mlNS 250 ML IV SCH (21:05)
[2024-08-19] MEDS: ACCU-CHEK COMFORT CURVE STRIP VI SCH (21:30)
[2024-08-19] MEDS: InsuLIN REG 1unit/0.01ml Soln (100units/ml) SC SCH (22:20)
[2024-08-19] MEDS: CEFEPIME 2GM/50ML NS 50 ML IV SCH (22:50)
[2024-08-20] VITALS (83 sets, daily range): BP systolic 75–164; BP diastolic 37–67; PULSE 74–155; RESP 13–34; TEMP 98.5–99.5; O2SAT 91–100
[2024-08-20] MEDS: NOREPINEPHRINE 8 MG/250ML KIT 250 ML IV SCH
[2024-08-20] MEDS ORDERED: ACCU-CHEK COMFORT CURVE STRIP VI SCH
[2024-08-20] MEDS: NOREPINEPHRINE 8 MG/250ML KIT 250 ML IV ONE (00:05)
--- NOTE | 2024-08-20 00:49 | DVH ---
CHEST RADIOGRAPH Indication: CENTRAL LINE INSERTION Technique: Single frontal view of the chest was obtained COMPARISON: XY CHEST XRAY 1 VIEW on DOS: 08/19/24 FINDINGS / IMPRESSION: Lines and Tubes: Interval insertion of right IJ central venous catheter with its tip projecting over right atrium. Tip of the ETT is approximately 7 cm above the jasbir. NG tube extends below the diaphr agm. Lungs: Infiltrates again noted in bilateral lower lobes, stable compared to the prior chest x-ray fro m a day earlier. No pulmonary edema. Pleura: No effusion. No pneumothorax. Cardiomediastinal contours: Unremarkable
--- NOTE | 2024-08-20 01:05 | DVHNC2 ---
Procedure - Endotracheal Intubation Procedure Note: INDICATION: Respiratory Insufficiency, unable to protect airways with recurrent aspiration. PROCEDURE SOLIDS CONTROL TECHNICIAN: Elton Melvin MD ATTENDING PHYSICIAN: : In Attendance of attending Dr. Snyder. CONSENT: During the informed consent discussion regarding the procedure, or treatment, I explained the following to the patient/designee: a. Nature of the procedure or treatment and who will perform the procedure or treatment. b. Necessity for procedure and the possible benefits. c. Risks and complications (most common and serious). d. Alternative treatments and the risks, benefits and side effects of each (including no treatment). e. Likelihood of the patient achieving his/her goals without this procedure and surgery treatment. f. Problems that might occur during the recuperation. g. Conflicts of interest, if any The patient was alert and oriented but could not protect airways due to recurrent intractable vomiting and coffee-ground emesis. But confirmed that he is agreeable to intubation mechanical ventilation and full code that includes ACLS protocol, if necessary PROCEDURE SUMMARY: A time out was performed. My hands were washed immediately prior to the procedure. I wore a surgical cap, mask with protective eyewear, gown and gloves throughout the procedure. The patient was placed on a supervisor pleating including continuous pulse oximetry. Rapid Sequence Intubation was conducted. Preoxygnation was done. The patient received Etomidate 20 mg for induction and Rocuronium 50 mg for adequate paralysis. Cricoid pressure was maintained from time induction agent was given to time of cuff balloon inflation. Using a GlideScope (video laryngoscope) and a size 8 endotracheal tube with stylet, the patient was intubated on the 1st attempt. The stylet was removed and cuff balloon was inflated. Appropriate endotracheal tube position was confirmed by direct visualization of vocal cord passage, fogging of the tube, CO2 colormetric indicator and symmetric breath sounds. The tube was secured at lips. Post intubation chest x-ray is pending at this time for confirmation. Ideally will keep the distal end 2.5 cm above jasbir. The procedure was assisted by the Respiratory Therapist on duty. Supervised by Dr. Snyder, Dr. Chavez, and Dr. Benson at bedside. ELTON MELVIN RESIDENT Aug 20, 2024 01:05
--- NOTE | 2024-08-20 01:13 | DVHNC2 ---
Procedure - ULTRASOUND-GUIDED RIGHT INTERNAL JUGULAR CENTRAL VENOUS CANNULATION CPT Codes: 73154 (ultrasound guidance) 89990 (insertion of non-tunneled centrally inserted central venous catheter) 95472 (CXR interpretation) Time out time: Patient medications and allergies reviewed. The risks and benefits of the procedure and the sedation options and risk were discussed with the patient's healthcare proxy. All questions were answered and informed consent was obtained. Patient identification and proposed procedure were verified prior to the procedure by the physician, and a nurse in the patient's room. The heart rate, respiratory rate, oxygen saturations, blood pressure, adequacy of pulmonary ventilation, and response to care were monitored throughout the procedure. The physical status of the patient was reassessed after the procedure. DATE: 08/20/24 PHYSICIAN: Elton Melvin MD PREOPERATIVE DIAGNOSIS: Aspiration pneumonia, ARDS, metabolic/toxic encephalopathy, recurrent intractable vomiting, acute hypoxic respiratory failure. Hemodynamically instability severe metabolic alkalosis, hypovolemic hy ponatremia. POSTOPERATIVE DIAGNOSIS: PROCEDURE PERFORMED: Limited Ultrasound-guided Right internal jugular central line placement. ANESTHESIA: 2 mL of 1% lidocaine plain. ESTIMATED BLOOD LOSS: less than 5 mL. SPECIMENS: None. COMPLICATIONS: None. INDICATIONS FOR PROCEDURE: The patient is in need of large bore IV access for administration of fluids, including blood products and vasoactive drugs, possible transvenous cardiac pacing and CVP monitoring for hemodynamic instability. DESCRIPTION OF PROCEDURE IN DETAIL: The patient was lying in the Trendelenburg position with head turned 30 degrees away from the insertion site. The skin was thoroughly sponged with chlorhexidine and allowed to dry. All persons involved were shielded with hair nets, face masks and sterile gowns. With sterile-gloved hands the right neck area was draped with the large disposable sterile field provided in the pre-manufactured kit. The skin and subcutaneous tissues superficial to the RIGHT internal jugular vein were anesthetized with 2 mL of 1% lidocaine. The RIGHT internal jugular vein was identified on ultrasound from the angle of the mandible down into the supraclavicular fossa using the linear ultrasound probe in the transverse orientation. The carotid artery was identified and av oided utilizing color-flow. The internal jugular vein was then placed in the center of the ultrasound field and compressed for patency. A movement artifact was identified as the needle was advanced through the skin and advanced toward the vessel. A real time hyperechoic signal revealed visualization of vascular needle entry into the lumen as blood was noted to flashback in the syringe. The needle was then held in place while the guide wire was advanced. The needle was then removed. Direct visualization of guide wire location within the vein was noted on ultrasound indicating proper placement and was document in the electronic medical record chart. A skin dilator was advanced over the guidewire and removed, and the triple-lumen catheter was then advanced over the guide wire into proper position. The guide wire was removed and discarded. The ports were aspirated which showed good blood return and then carefully flushed with normal saline. The catheter was stabilized and sutured to the skin with 2-0 silk at 4 anchor points. A sterile bio-patch and dressing was placed over the catheter, including the insertion site. The patient tolerated the procedure well. A chest x-ray was ordered for position confirmation. I reviewed the image immediately after it was taken at bedside. Post-procedure chest x-ray demonstrates the central line in the superior vena and no evidence of any pneumothorax. An image recording of the procedure accompanies the chart. CXR satisfactory, no immediate complication noted. Supervised by Dr. Darryl Choudhury. ELTON MELVIN RESIDENT Aug 20, 2024 01:13
[2024-08-20 07:31] LABS: Alanine Aminotransferase 27 U/L (7-40); Albumin 3.7 g/dL (3.2-4.8); Alkaline Phosphatase 101 U/L (46-116); Anion Gap 20 (5-15); BUN/Creatinine Ratio 15.1 (10.0-20.0); Calcium 9.8 mg/dL (8.7-10.4)
[2024-08-20 07:32] LABS: Aspartate Aminotransferase 26 U/L (13-40)
[2024-08-20 07:34] LABS: Bilirubin, Total < 0.2 mg/dL (0.2-1.0)
[2024-08-20 07:35] LABS: Carbon Dioxide 37 mmol/L (20-31); Chloride 66 mmol/L (98-107); Glucose 233 mg/dL (74-106); Potassium 2.9 mmol/L (3.5-5.1); Sodium 123 mmol/L (136-145)
[2024-08-20 07:36] LABS: Blood Urea Nitrogen 145 mg/dL (9-23)
[2024-08-20 07:41] LABS: Hematocrit 35.8 % (41.0-53.0); Hemoglobin 12.6 g/dL (13.5-17.5); Mean Corpuscular Hemoglobin 30.6 pg (28.0-32.0); Mean Corpuscular Hgb Conc. 35.1 g/dL (32.0-36.0); Platelet Count (auto) 196 10^3/uL (140-450); Red Blood Cells 4.12 10^6/uL (4.5-5.90)
[2024-08-20 07:47] LABS: White Blood Cell 46.7 10^3/uL (4.4-10.8)
[2024-08-20 07:49] LABS: Basophils % (manual) 0 (0.0-2.0); Blast Cells 0; Eosinophils % (manual) 0 (0-7); Promyelocytes % 0; Reactive Lymphocytes 0
[2024-08-20] MEDS: SODIUM CHL 0.9% 50 ML IV ONE (08:00)
[2024-08-20 08:04] LABS: Base Excess 12.2 mmol/L (-2.0-3.0)
[2024-08-20] MEDS: POTASSIUM CHL 20MEQ/50ML 50 ML IV ONE (08:23)
[2024-08-20] MEDS: BUMETANIDE 2.5mg/10ml (0.25 mg/ml) INJ IV ONE (08:23)
[2024-08-20] MEDS: ENOXAPARIN SOD 30 MG/0.3 ML SYRINGE SC SCH (09:57)
--- NOTE | 2024-08-20 10:59 | DVHPN2 ---
Subjective Patient was intubated and sedated Reviewed: Care Plan, H&P, Labs, Medications, Previous Orders Changes from previous H/P or p: No Changes General: Per HPI Eyes: No Pain, No Vision change, No Conjunctivae inflammation, No Eyelid inflammation, No Other, No Redness ENT: No Ear pain, No Ear discharge, No Nose pain, No Nose discharge, No Nose congestion, No Mouth pain, No Mouth swelling, No Throat pain, No Throat swelling, No Other Cardiovascular: No Chest Pain, No Palpitations, No Orthopnea, No Paroxysmal Noc. Dyspnea, No Edema, No Lt Headedness, No Other Respiratory: No Cough, No Dry, No Shortness of breath, No SOB with excertion, No Wheezing, No Hemoptysis, No Pleuritic Pain, No Sputum, No Other Gastrointestinal: Nausea, Vomiting; No Abdominal Pain, No Diarrhea; C onstipation; No Melena, No Hematochezia, No Other Genitourinary: No Dysuria, No Frequency, No Incontinence, No Hematuria, No Retention, No Other Musculoskeletal: No other, No neck pain, No shoulder pain, No arm pain, No back pain, No hand pain, No leg pain, No foot pain Skin: No Rash, No Lesions, No Jaundice, No Bruising, No Other Objective Vitals Vital Signs Date Time Temp Pulse Resp B/P (MAP) Pulse Ox O2 Delivery O2 Flow Rate FiO2 08/20/24 10:26 95 18 107/58 (74) 95 08/20/24 10:25 70 08/20/24 06:16 Mechanical Ventilator+ 08/20/24 04:00 98.5 98.5 08/19/24 21:11 2 Intake/Output Intake and Output 08/20/24 07:00 Intake Total 5898.25 ml Output Total 400 ml Balance 5498.25 ml Intake IV Total 5898.25 ml Output Urine Total 400 ml General Appearance: moderate distress, Other (Chemically sedated) HEENT: Atraumatic, PERRLA Lungs: Other (Bilateral rhonchi. Mechanical ventilation) Cardiovascular: Normal S1, Normal S2 Musculoskeletal: Normal sensory function, Normal motor function Neuro: Other (Unable to assess) Skin: Dry, Intact Psych/Mental Status: Other (Unable to assess) Medications Current Medications Medications Dose Ordered Sig/Nikki Route Start Time Stop Time Status Last Admin Dose Admin Ondansetron HCl 4 mg Q4HP PRN IV 08/19/24 13:30 Enoxaparin Sodium 30 mg DAILY SC 08/20/24 10:00 08/20/24 09:57 30 MG Nitroglycerin 0.4 mg Q5MINP PRN SL 08/19/24 13:30 Morphine Sulfate 2 mg Q30M PRN IV 08/19/24 13:30 Sodium Chloride 1,000 ml @ 125 mls/hr Q8H IV 08/19/24 14:15 08/20/24 06:17 125 MLS/HR Diagnostic Test (Pha) 1 strip ACHS 08/19/24 17:00 Cancel Vancomycin HCl 0 ml @ 0 mls/hr UD IV 08/19/24 16:00 Cefepime HCl 50 ml @ 12.5 mls/hr DAILY@2200 IV 08/19/24 22:00 08/19/24 22:50 12.5 MLS/HR Norepinephrine Bitartrate 250 ml @ 3.75 mls/hr Q24H IV 08/19/24 17:15 Cancel Midazolam HCl 50 ml @ 1 mls/hr Q24H IV 08/19/24 17:15 08/20/24 05:45 12 MLS/HR Fentanyl Citrate 250 ml @ 2.5 mls/hr Q24H IV 08/19/24 17:15 08/19/24 21:05 2.5 MLS/HR Ipratropium [place] 0.5 mg Q6HR NEB 08/19/24 18:00 08/20/24 06:26 0.5 MG Albuterol 2.5 mg Q6HR NEB 08/19/24 18:00 08/20/24 06:26 2.5 MG Diagnostic Test (Pha) 1 strip IQ4HR 08/19/24 20:00 08/20/24 08:00 1 STRIP Insulin Human Regular IQ4HR SC 08/19/24 20:00 08/20/24 08:25 4 UNITS Dextrose 50 ml UD PRN IV 08/19/24 19:15 Norepinephrine Bitartrate 250 ml @ 3.75 mls/hr Q24H IV 08/20/24 00:15 08/20/24 00:00 3.75 MLS/HR Pantoprazole Sodium 40 mg BID IV 08/20/24 22:00 Laboratory Results Laboratory Tests 08/20/24 06:42 Chemistry Test 08/19/24 11:00 08/19/24 15:07 08/19/24 16:55 08/19/24 19:51 Calcium Level 10.9 mg/dL (8.7-10.4) H 9.6 mg/dL (8.7-10.4) 9.1 mg/dL (8.7-10.4) 9.5 mg/dL (8.7-10.4) Magnesium Level 3.2 mg/dL (1.6-2.6) H Albumin 4.0 g/dL (3.2-4.8) Total Protein 6.8 g/dL (5.7-8.2) Test 08/20/24 06:42 Albumin 3.7 g/dL (3.2-4.8) Calcium Level 9.8 mg/dL (8.7-10.4) Total Protein 6.0 g/dL (5.7-8.2) Coagulation Test 08/19/24 16:55 D-Dimer, Quantitative 1.19 mg/L FEU (0.0-0.49) H Lipid panel Test 08/19/24 16:55 Lipase 41 U/L (12-53) LFT Test 08/19/24 16:55 08/20/24 06:42 Alanine Aminotransferase (ALT) 21 U/L (7-40) 27 U/L (7-40) Alkaline Phosphatase 81 U/L (46-116) 101 U/L (46-116) Aspartate Amino Transferase (AST) 10 U/L (13-40) L 26 U/L (13-40) Total Bilirubin 0.5 mg/dL (0.2-1.0) < 0.2 mg/dL (0.2-1.0) L HgA1c, TSH Test 08/19/24 11:00 Hemoglobin A1c 11.7 % A1C (<5.7) H Urinalysis Test 08/19/24 11:25 Urine Color Colorless (Yellow) Urine Clarity Ex.turbid (Clear) Urine pH 6.5 (5.0-9.0) Urine Specific [place] 1.017 (1.001-1.035) Urine Protein 1+ (Negative) H Urine Ketones Negative (Negative) Urine Blood 1+ /uL (Negative) H Urine Nitrite Negative (Negative) Urine Bilirubin Negative (Negative) Urine Urobilinogen Normal mg/dL (Negative) Urine Leukocyte Esterase Trace /uL (Negative) Urine RBC 5 /hpf (0 - 3) Urine Microscopic WBC 16 /HPF (0-3) H Urine Squamous Epithelial Cells Few /hpf (<5) Urine Renal Epithelial Cells Few /hpf (None Seen) Urine Amorphous Crystals Few /hpf (None Seen) Urine Bacteria Few /hpf (None Seen) H Urine Mucus Few (None Seen) Urine Sperm Present /hpf (None Seen) Urine Creatinine 77.13 mg/dL (30.0-125.0) Urine Sodium 15 mmol/L (40-220) L Urine Glucose 3+ mg/dL (Normal) H Blood Gas Results Test 08/19/24 11:05 08/19/24 16:07 08/19/24 19:02 08/19/24 20:50 Arterial Blood pH 7.611 (7.350-7.450) 7.466 (7.350-7.450) 7.565 (7.350-7.450) 7.600 (7.350-7.450) FiO2 % 21.0 100.0 100.0 100.0 Test 08/20/24 07:35 Arterial Blood pH 7.476 (7.350-7.450) FiO2 % 50.0 Microbiology Microbiology Date/Time Source Procedure Growth Status 08/19/24 16:30 Sputum Gram Stain Pending Resulted 08/19/24 16:30 Sputum Respiratory Culture - Preliminary Resulted Labs and/or images reviewed: Labs reviewed by me, Image(s) reviewed by me Assessment/Plan Assessment/Plan Impression: -acute hypoxic respiratory failure with mechanical ventilation -probable aspiration pneumonitis/pneumonia -sepsis with shock -obesity -rule out GI bleed -diabetes mellitus with severe hyperglycemia -hyponatremia -hypochloremia -hypokalemia -acute kidney injury, vasomotor nephropathy Plan: -patient with improved saturation, oxygenation with current vent settings. Defer to pulmonology for vent management -continue antibiotic therapy with cefepime and vancomycin -nephrology consultation: Recommendations reviewed -patient receiving echocardiogram, with preliminary results at bedside revealing ejection fraction approximately 15% -NG to low intermittent suction -continue normal saline at 125 mL/hour. CVP monitoring ordered and discussed with primary nurse in emergency room. We will change fluid resuscitation based on CVP -start PPI with Protonix 40 mg IV b.i.d. -regular insulin sliding scale, aggressive scale -potassium replacement -serial BMP -plan of care will be discussed with patient was sister. Critical care time spent with patient discussing and formulating plan of care: 90 minutes. This does not include time spent performing procedures. This medical document was created using an electronic medical record system with [employer] dictation system. Although this document has been carefully reviewed, there may still be some phonetic and typographical errors. These areas are purely typographical due to imperfections of the software programs, and do not reflect any compromise in the patient's medical care. Plan discussed with: Patient, Other (RN) My Orders Orders - LION ORELLANA NP Procedure Category Date Status Time Chest Xray 1 View XY 08/19/24 Resulted 17:15 Stool Occult Blood LAB 08/20/24 Logged 10:35 Gastric Occult Blood LAB 08/20/24 Logged 10:35 Pantoprazole PHA 08/20/24 In Process (Protonix) 22:00 Complete Blood Count LAB 08/21/24 Verified 05:00 Complete Blood Count LAB 08/22/24 Verified 05:00 Complete Blood Count LAB 08/23/24 Verified 05:00 Basic Metabolic Panel LAB 08/21/24 Verified 05:00 Basic Metabolic Panel LAB 08/22/24 Verified 05:00 Basic Metabolic Panel LAB 08/23/24 Verified 05:00 Chest Portable XY 08/21/24 Logged 05:00 Chest Portable XY 08/22/24 Logged 05:00 Chest Portable XY 08/23/24 Logged 05:00 Abg W/ Co-Ox RT 08/21/24 Logged 05:00 Abg W/ Co-Ox RT 08/22/24 Logged 05:00 Abg W/ Co-Ox RT 08/23/24 Logged 05:00 Abg W/ Co-Ox RT 08/21/24 Logged 04:00 Basic Metabolic Panel LAB 08/20/24 Logged 14:00 Central Line W/ Cont ORDERS 08/20/24 Transmitted CVP 10:52 Date of Service: Aug 20, 2024 Billing Provider: LION ORELLANA NP Common Visit Codes: 69122-BEPVRUWP CARE 30-74 MIN, 59521-UKZHLSIM CARE-EACH +30MIN LION ORELLANA NP Aug 20, 2024 10:59
[2024-08-20 12:42] LABS: Band Neutrophils % (manual) 27; Lymphocytes % (manual) 6 (10.0-50.0); Metamyelocytes % 11; Monocytes % (manual) 8 (0-12); Myelocytes % 1; Platelet Estimate Adequate
[2024-08-20 13:03] LABS: COVID19 ANTIGEN SOFIA FIA NEGATIVE (NEGATIVE); Rapid Influenza A Negative (Negative); Rapid Influenza B Negative (Negative)
[2024-08-20 13:39] LABS: Anion Gap 20 (5-15); Calcium 9.5 mg/dL (8.7-10.4); Carbon Dioxide 36 mmol/L (20-31); Chloride 70 mmol/L (98-107); Potassium 3.2 mmol/L (3.5-5.1); Sodium 126 mmol/L (136-145)
[2024-08-20 13:44] LABS: Glucose 90 mg/dL (74-106)
--- NOTE | 2024-08-20 13:49 | DVHSR ---
APPROVED REPORT EXAM: LIMITED Two-dimensional and M-mode echocardiogram. Blood Pressure: 109/53 mmHg INDICATION Acute decompensated heart failure RISK FACTORS Obesity: Height: 6' 2", Weight: 279 DIMENSIONS LVDd3.5 (3.8-5.7cm)LA (2D)3.5 (1.9-4.0cm)Aortic Root (2.0-3.7cm) LVDs3.4 (2.5-4.0cm)LA (MM) (1.9-4.0cm)Aortic Cusp Exc (1.5-2.0cm) EF (%) 15.0 (55-70%)Rt. Atrium4.2 (1.9-4.0cm)Asc. Aorta cm Mitral Valve MitralMitral Stenosis E wave1.10m/sMV Mean GR.mmHg A wave0.70m/sMV Peak GR.mmHg E/A ratio1.62D MVAcm2 Aortic Valve Aortic ValveAortic Stenosis V12.40m/Queenie Mean GR.11mmHg V22.20m/Queenie Peak GR.20mmHg Other Information Quality : Technically LimitedRhythm : Technically limited study due to body habitus and on vent. Conclusion very limited study only apcial images to interpret LV dysfunction at least moderate LVEF is <40% but cannot be more speciifc RV not well seen atri and valve not welll seen consider optison echo
--- NOTE | 2024-08-20 13:50 | DVHPN2 ---
Progress Note Date Seen: Aug 20, 2024 Medical Necessity Reason Pt with a Central, PICC or Fol: Yes The following are medically ne: Central Line, Friedman Catheter Subjective Patient reports: Other (Patient had large bloody emesis overnight resulted in aspiration patient intubated now due to respiratory distress Further information obtained from patient's sister over the phone patient was taking Ozempic over the last week or so which resulted in severe nausea and vomiting for several days and questionable intermittent use of metformin.) Review of Systems: RESPIRATORY:Abnormal Objective vital signs Vital Sign Date Time Temp Pulse Resp B/P (MAP) Pulse Ox O2 Delivery O2 Flow Rate FiO2 08/20/24 13:30 100 26 121/59 (79) 93 08/20/24 12:05 70 08/20/24 07:45 97.9 97.9 08/20/24 06:16 Mechanical Ventilator+ 08/19/24 21:11 2 Total Intake and Output 08/19/24 08/19/24 08/20/24 15:00 23:00 07:00 Intake Total 3700 ml 1108.0 ml 1090.25 ml Output Total 400 ml Balance 3700 ml 1108.0 ml 690.25 ml medications Current Medications Medications Dose Ordered Sig/Nikki Route Start Time Stop Time Status Last Admin Dose Admin Ondansetron HCl 4 mg Q4HP PRN IV 08/19/24 13:30 Enoxaparin Sodium 30 mg DAILY SC 08/20/24 10:00 08/20/24 09:57 30 MG Nitroglycerin 0.4 mg Q5MINP PRN SL 08/19/24 13:30 Morphine Sulfate 2 mg Q30M PRN IV 08/19/24 13:30 Sodium Chloride 1,000 ml @ 125 mls/hr Q8H IV 08/19/24 14:15 08/20/24 06:17 125 MLS/HR Diagnostic Test (Pha) 1 strip ACHS 08/19/24 17:00 Cancel Vancomycin HCl 0 ml @ 0 mls/hr UD IV 08/19/24 16:00 Cefepime HCl 50 ml @ 12.5 mls/hr DAILY@2200 IV 08/19/24 22:00 08/19/24 22:50 12.5 MLS/HR Norepinephrine Bitartrate 250 ml @ 3.75 mls/hr Q24H IV 08/19/24 17:15 Cancel Midazolam HCl 50 ml @ 1 mls/hr Q24H IV 08/19/24 17:15 08/20/24 10:45 12 MLS/HR Fentanyl Citrate 250 ml @ 2.5 mls/hr Q24H IV 08/19/24 17:15 08/19/24 21:05 2.5 MLS/HR Ipratropium [place] 0.5 mg Q6HR NEB 08/19/24 18:00 08/20/24 12:05 0.5 MG Albuterol 2.5 mg Q6HR NEB 08/19/24 18:00 08/20/24 12:05 2.5 MG Diagnostic Test (Pha) 1 strip IQ4HR 08/19/24 20:00 08/20/24 12:00 1 STRIP Insulin Human Regular IQ4HR SC 08/19/24 20:00 08/20/24 08:25 4 UNITS Dextrose 50 ml UD PRN IV 08/19/24 19:15 Norepinephrine Bitartrate 250 ml @ 3.75 mls/hr Q24H IV 08/20/24 00:15 08/20/24 00:00 3.75 MLS/HR Pantoprazole Sodium 40 mg BID IV 08/20/24 22:00 Bisacodyl 10 mg DAILYP PRN SC 08/20/24 11:15 Examination: GENERAL:Abnormal, LUNGS:Abnormal, ABDOMEN:Abnormal laboratory and microbiology Laboratory Tests 08/20/24 13:11 08/20/24 06:42 Test 08/20/24 13:11 Range/Units Serum Glucose Pending Microbiology Date/Time Source Procedure Growth Status 08/19/24 16:30 Sputum Gram Stain - Final Resulted 08/19/24 16:30 Sputum Respiratory Culture - Preliminary Resulted 08/19/24 11:25 Voided Urine Urine Culture - Preliminary Resulted 08/19/24 11:00 Blood Blood Culture - Preliminary NO GROWTH AFTER 24 HOURS OF INCUBATION. Resulted Problem List/Assessment/Plan Problem List/Assessment/Plan Acute kidney injury in the setting of hypotension and volume depletion -> ATN early signs Metabolic alkalosis in the setting of vomiting-> chloride depletion Hypokalemia Severe hyperglycemia Hyponatremia in the setting of hyperglycemia hyperosmolar state Uncontrolled diabetes Discussed with patient's sister who is currently making medical decisions the current state of the patient. Recommend hemodialysis treatment. Consent obtained and signed in the chart. We will obtain temporary dialysis catheter and start hemodialysis treatment today for metabolic and volume control IV fluids continued Pressors to maintain mean arterial pressure greater than 65 Continue with I&O in urinary output monitoring Patient is critically ill critical care time spent 70 minutes Guarded prognosis Plan discussed with: Other My Orders My Orders Orders - MERLIN ROBLES MD Procedure Category Date Status Time Sodium Chloride 0.9% PHA 08/19/24 In Process 14:15 Strict I & O ROHINI 08/19/24 In Process 14:08 MERLIN ROBLES MD Aug 20, 2024 13:50
[2024-08-20 13:53] LABS: BUN/Creatinine Ratio 16.2 (10.0-20.0)
[2024-08-20 13:55] LABS: Blood Urea Nitrogen 158 mg/dL (9-23)
[2024-08-20] MEDS: SODIUM CHL 0.9% 1000 ML BAG XX ONE (14:00)
[2024-08-20] MEDS: HEPARIN SODIUM (PORCINE) 5000 UNITS/ML 1ML VIAL ONE (15:34)
--- NOTE | 2024-08-20 16:40 | DVHNC2 ---
Central Line Recorder of insertion practice: Sdet Occupation of wire inserter: Attending Physician Indication: Hypotension Room prepared for procedure: Yes Sdet performed hand hygien: Yes Maximal sterile barrier precau: Mask/Eye shield, Sterile gown Skin Preparation: Chlorhexidine gluconate, Providine iodine Skin preparation completely dr: Yes Insertion site: Right, Femoral Central line catheter type: Dialysis non-tunneled Number of lumens: 2 Antiseptic ointment applied to: Yes Date of Service: Aug 20, 2024 Billing Provider: EULOGIO COFFEY MD Common Visit Codes: 45409-[id number] INP/OBS CARE (HIGH) Secondary Visit Codes: 03285-[id number] STANDBY SERVICE Consultation Codes: 11940-[id number] CONSULT <45MIN Procedure Codes: 95019-FKGLEN NON-TUNNEL CV CATH EULOGIO COFFEY MD Aug 20, 2024 16:40
[2024-08-20 19:39] LABS: Base Excess 5.1 mmol/L (-2.0-3.0)
[2024-08-20] MEDS: SODIUM CHLORIDE 0.9% 1,000 ML IV SCH (20:52)
[2024-08-20] MEDS: PANTOPRAZOLE 40 MG/10 ML VIAL INJ IV SCH (21:08)
--- NOTE | 2024-08-20 21:31 | DVHPN2 ---
Progress Note - Dictate Date Seen: Aug 20, 2024 Medical Necessity Reason Pt with a Central, PICC or Fol: Yes The following are medically ne: Central Line, Chavez Catheter Reason for chavez catheter: Strict I&O Subjective Patient seen and examined at bedside. Sedated, intubated on mechanical ventilator. Overnight events reviewed. vital signs Vital Sign Date Time Temp Pulse Resp B/P (MAP) Pulse Ox O2 Delivery O2 Flow Rate FiO2 08/20/24 20:30 99.5 98 25 124/63 (83) 97 211.1 08/20/24 20:16 Mechanical Ventilator+ 85 85 08/19/24 21:11 2 Total Intake and Output 08/19/24 08/19/24 08/20/24 15:00 23:00 07:00 Intake Total 3700 ml 1108.0 ml 1090.25 ml Output Total 400 ml Balance 3700 ml 1108.0 ml 690.25 ml medications Current Medications Medications Dose Ordered Sig/Nikki Route Start Time Stop Time Status Last Admin Dose Admin Ondansetron HCl 4 mg Q4HP PRN IV 08/19/24 13:30 Enoxaparin Sodium 30 mg DAILY SC 08/20/24 10:00 08/20/24 09:57 30 MG Nitroglycerin 0.4 mg Q5MINP PRN SL 08/19/24 13:30 Morphine Sulfate 2 mg Q30M PRN IV 08/19/24 13:30 Diagnostic Test (Pha) 1 strip ACHS 08/19/24 17:00 Cancel Vancomycin HCl 0 ml @ 0 mls/hr UD IV 08/19/24 16:00 Cefepime HCl 50 ml @ 12.5 mls/hr DAILY@2200 IV 08/19/24 22:00 08/19/24 22:50 12.5 MLS/HR Norepinephrine Bitartrate 250 ml @ 3.75 mls/hr Q24H IV 08/19/24 17:15 Cancel Midazolam HCl 50 ml @ 1 mls/hr Q24H IV 08/19/24 17:15 08/20/24 18:45 12 MLS/HR Fentanyl Citrate 250 ml @ 2.5 mls/hr Q24H IV 08/19/24 17:15 08/19/24 21:05 2.5 MLS/HR Ipratropium [place] 0.5 mg Q6HR NEB 08/19/24 18:00 08/20/24 18:06 0.5 MG Albuterol 2.5 mg Q6HR NEB 08/19/24 18:00 08/20/24 18:06 2.5 MG Diagnostic Test (Pha) 1 strip IQ4HR 08/19/24 20:00 08/20/24 20:06 1 STRIP Insulin Human Regular IQ4HR SC 08/19/24 20:00 08/20/24 08:25 4 UNITS Dextrose 50 ml UD PRN IV 08/19/24 19:15 Norepinephrine Bitartrate 250 ml @ 3.75 mls/hr Q24H IV 08/20/24 00:15 08/20/24 18:30 30 MLS/HR Pantoprazole Sodium 40 mg BID IV 08/20/24 22:00 Bisacodyl 10 mg DAILYP PRN [place] 08/20/24 11:15 Sodium Chloride 1,000 ml @ 50 mls/hr Q20H IV 08/20/24 20:00 08/20/24 20:52 50 MLS/HR objective Gen.: Patient lying in bed in medical ICU. Sedated, intubated on mechanical ventilator. Head: Normocephalic, atraumatic. Eyes: PERRLA. Ears: Normal external anatomy. Throat: Endotracheal tube and orogastric tube in place. Neck: Supple, trachea midline. Chest: Transmitted breath sounds bilaterally. Decreased air entry bilaterally. No wheezing. Bibasilar crackles. Cardiovascular: Positive S1, positive S2. Regular rate and rhythm. Abdomen: Positive bowel sounds in all 4 quadrants. Soft, nontender, nondistended. : Chavez in place. Normal external genitalia. Rectal: Deferred. Skin: Warm, dry. Intact. Extremities: 2+ radial pulses bilaterally. No lower extremity edema. Neuro: Sedated laboratory and microbiology Laboratory Tests 08/20/24 13:11 08/20/24 06:42 Test 08/20/24 13:11 Range/Units Serum Glucose 90 # 74-106 mg/dL Assessment/Plan Impression: Acute hypoxic respiratory failure On mechanical ventilator Gastrointestinal hemorrhage, upper Aspiration pneumonia MAGDALENA mucous plug Obesity BMI 35.9 Events: Remains on vent support Vent settings: PCV mode; respiratory rate 18; I-Pressure 20; I-time 0.8, PEEP 12, FiO2 100% Sedated on Versed, Fentanyl Pressors for hemodynamic support On Levophed 16 mcg/min Titrate to keep mean arterial pressure greater than 65 mmHg. S/p hemodialysis Monitor renal function Monitor electrolytes. Supplement as necessary. Follow up Nephrology recommendations Obtain ABG 1 hour after HD Filtered ABG from this AM showed alkalemia Continue antibiotics. Follow up cultures CXR reviewed, stable infiltrates noted in bilateral lower lobes. No pulmonary edema, effusion or pneumothorax. Monitor hemoglobin Labs and imaging reviewed. Rest of plan as noted below Plan: s/p intubation on mechanical ventilator. Placed on PC mode due to high peak pressure Vent settings: PCV mode; respiratory rate 18; I-Pressure 20; I-time 0.8, PEEP 12, FiO2 100% Titrate FIO2 to keep O2 saturation above 90%. VAP bundle. Daily ABG and CXR while intubated Sedate for ventilator synchrony Patient underwent therapeutic bronchoscopy on 08/19/24 with clearing of mucous plugging. Aspirated coffee ground material removed from within the bilateral lungs. See separate procedure note for details. Continue bronchodilators. Continue antibiotics. Pressors as necessary for hemodynamic support Titrate to keep mean arterial pressure greater than 65 mmHg. Monitor hemoglobin Follow up GI recs IV fluids with NS at 125 ml/hr Monitor renal function Monitor electrolytes. Supplement as necessary. Potassium supplementation Monitor ins and outs. Accu-Cheks, ISS GI prophylaxis. DVT prophylaxis. Prognosis: Poor given patient's multiple co-morbidities. Condition: Critical Rest of plan per hospitalist and other consultants. A total of 35 minutes of critical care time was spent reviewing the patient record, examining the patient, making a diagnostic and therapeutic plan, discussing this plan with the medical personnel, following up on diagnostic studies and following the patient for clinical stability excluding any and all procedures. At least 50% of this time was spent in direct, [id number] contact. Thank you, DEON Morrison, for allowing me to participate in this patient's care. Further recommendations will depend on the patient's clinical course. Please do not hesitate to contact me if you have any questions or concerns. This medical document was created using an electronic medical record system with textmetixation system. Although these documentations are being carefully reviewed, there may still be some phonetic and typographical changes. The errors are purely typographical, due to imperfection on the software program, and do not reflect any compromise in the patient's medical care. Plan discussed with: Other (MARYURI Cagle) Critical Care Time(min): 35 LINO CARRION MD Aug 20, 2024 21:31
[2024-08-21] VITALS (108 sets, daily range): BP systolic 79–131; BP diastolic 38–68; PULSE 79–105; RESP 18–30; TEMP 98.1–100.4; O2SAT 88–100
[2024-08-21] MEDS: VANCOMYCIN 500mg/100mL 100 ML IV ONE ×2 (00:31→14:48)
[2024-08-21] MEDS: ACETAMINOPHEN 650 MG RECT SUPP PR PRN (04:21)
[2024-08-21] MEDS: ACETAMINOPHEN 650 MG RECT SUPP PR ONE (04:22)
[2024-08-21 05:27] LABS: Hematocrit 31.4 % (41.0-53.0); Mean Corpuscular Hemoglobin 30.3 pg (28.0-32.0); Mean Corpuscular Hgb Conc. 34.9 g/dL (32.0-36.0); Mean Corpuscular Volume 86.7 fL (80.0-100.0); Platelet Count (auto) 159 10^3/uL (140-450); Red Blood Cells 3.62 10^6/uL (4.5-5.90); Red Cell Distribution Width 13.5 % (11.8-14.3)
[2024-08-21 05:28] LABS: Anion Gap 18 (5-15); Carbon Dioxide 31 mmol/L (20-31)
[2024-08-21 05:29] LABS: Calcium 8.8 mg/dL (8.7-10.4); White Blood Cell 57.5 10^3/uL (4.4-10.8)
[2024-08-21 05:30] LABS: Basophils % (manual) 0 (0.0-2.0); Blast Cells 0; Promyelocytes % 0; Reactive Lymphocytes 0
[2024-08-21 05:31] LABS: Chloride 80 mmol/L (98-107); Potassium 3.3 mmol/L (3.5-5.1); Sodium 129 mmol/L (136-145)
[2024-08-21 05:34] LABS: BUN/Creatinine Ratio 14.9 (10.0-20.0)
[2024-08-21 05:35] LABS: Glucose 220 mg/dL (74-106)
[2024-08-21 05:36] LABS: Blood Urea Nitrogen 131 mg/dL (9-23)
--- NOTE | 2024-08-21 05:37 | DVH ---
CHEST RADIOGRAPH Indication: aspiration pna Technique: Single frontal view of the chest was obtained COMPARISON: XY CHEST PORTABLE on DOS: 08/20/24, XY CHEST XRAY 1 VIEW on DOS: 08/19/24, XY CHEST XRAY 1 VIEW on DOS: 08/19/24, XY CHEST PORTABLE on DOS: 08/19/24 FINDINGS: Lines and Tubes: Endotracheal tube, enteric catheter and right central venous catheter in satisfactor y position. Lungs: Clear Pleura: No effusion. No pneumothorax. Cardiomediastinal contours: Unremarkable Bones: Unremarkable IMPRESSION: No acute disease.
[2024-08-21 06:22] LABS: Band Neutrophils % (manual) 15; Eosinophils % (manual) 1 (0-7); Lymphocytes % (manual) 2 (10.0-50.0); Metamyelocytes % 2; Monocytes % (manual) 5 (0-12); Myelocytes % 3; Platelet Estimate Adequate
[2024-08-21 07:07] LABS: Base Excess 5.5 mmol/L (-2.0-3.0)
[2024-08-21] MEDS: SODIUM CHL 0.9% 1000 ML BAG XX ONE (09:01)
--- NOTE | 2024-08-21 10:59 | DVHPN2 ---
Subjective Patient is intubated and sedated Reviewed: Care Plan, H&P, Labs, Medications, Previous Orders Changes from previous H/P or p: No Changes General: Per HPI Eyes: No Pain, No Vision change, No Conjunctivae inflammation, No Eyelid inflammation, No Other, No Redness ENT: No Ear pain, No Ear discharge, No Nose pain, No Nose discharge, No Nose congestion, No Mouth pain, No Mouth swelling, No Throat pain, No Throat swelling, No Other Cardiovascular: No Chest Pain, No Palpitations, No Orthopnea, No Paroxysmal Noc. Dyspnea, No Edema, No Lt Headedness, No Other Respiratory: No Cough, No Dry, No Shortness of breath, No SOB with excertion, No Wheezing, No Hemoptysis, No Pleuritic Pain, No Sputum, No Other Gastrointestinal: Nausea, Vomiting; No Abdominal Pain, No Diarrhea; C onstipation; No Melena, No Hematochezia, No Other Genitourinary: No Dysuria, No Frequency, No Incontinence, No Hematuria, No Retention, No Other Musculoskeletal: No other, No neck pain, No shoulder pain, No arm pain, No back pain, No hand pain, No leg pain, No foot pain Skin: No Rash, No Lesions, No Jaundice, No Bruising, No Other Objective Vitals Vital Signs Date Time Temp Pulse Resp B/P (MAP) Pulse Ox O2 Delivery O2 Flow Rate FiO2 08/21/24 10:00 96 24 114/59 (77) 95 08/21/24 09:54 100 08/21/24 09:30 Mechanical Ventilator+ 08/21/24 08:00 98.1 98.1 08/19/24 21:11 2 Intake/Output Intake and Output 08/21/24 07:00 Intake Total 2912.25 ml Output Total 600 ml Balance 2312.25 ml Intake Oral 0 ml IV Total 2912.25 ml Output Urine Total 500 ml Gastric Drainage Total 100 ml General Appearance: moderate distress, Other (Chemically sedated) HEENT: Atraumatic, PERRLA Lungs: Other (Bilateral rhonchi. Mechanical ventilation) Cardiovascular: Normal S1, Normal S2 Musculoskeletal: Normal sensory function, Normal motor function Neuro: Other (Unable to assess) Skin: Dry, Intact Psych/Mental Status: Other (Unable to assess) Medications Current Medications Medications Dose Ordered Sig/Nikki Route Start Time Stop Time Status Last Admin Dose Admin Ondansetron HCl 4 mg Q4HP PRN IV 08/19/24 13:30 Enoxaparin Sodium 30 mg DAILY SC 08/20/24 10:00 08/21/24 07:51 30 MG Nitroglycerin 0.4 mg Q5MINP PRN SL 08/19/24 13:30 Morphine Sulfate 2 mg Q30M PRN IV 08/19/24 13:30 Diagnostic Test (Pha) 1 strip ACHS 08/19/24 17:00 Cancel Vancomycin HCl 0 ml @ 0 mls/hr UD IV 08/19/24 16:00 Cefepime HCl 50 ml @ 12.5 mls/hr DAILY@2200 IV 08/19/24 22:00 08/20/24 21:08 12.5 MLS/HR Norepinephrine Bitartrate 250 ml @ 3.75 mls/hr Q24H IV 08/19/24 17:15 Cancel Midazolam HCl 50 ml @ 1 mls/hr Q24H IV 08/19/24 17:15 08/21/24 09:17 12 MLS/HR Fentanyl Citrate 250 ml @ 2.5 mls/hr Q24H IV 08/19/24 17:15 08/19/24 21:05 2.5 MLS/HR Ipratropium [place] 0.5 mg Q6HR NEB 08/19/24 18:00 08/21/24 05:57 0.5 MG Albuterol 2.5 mg Q6HR NEB 08/19/24 18:00 08/21/24 05:57 2.5 MG Diagnostic Test (Pha) 1 strip IQ4HR 08/19/24 20:00 08/21/24 07:49 1 STRIP Insulin Human Regular IQ4HR SC 08/19/24 20:00 08/21/24 08:04 8 UNITS Dextrose 50 ml UD PRN IV 08/19/24 19:15 Norepinephrine Bitartrate 250 ml @ 3.75 mls/hr Q24H IV 08/20/24 00:15 08/21/24 03:35 26.25 MLS/HR Pantoprazole Sodium 40 mg BID IV 08/20/24 22:00 08/21/24 08:03 40 MG Bisacodyl 10 mg DAILYP PRN [place] 08/20/24 11:15 Sodium Chloride 1,000 ml @ 50 mls/hr Q20H IV 08/20/24 20:00 08/20/24 20:52 50 MLS/HR Acetaminophen 650 mg Q6HP PRN [place] 08/21/24 01:45 08/21/24 04:21 650 MG Laboratory Results Laboratory Tests 08/21/24 04:44 Chemistry Test 08/20/24 13:11 08/21/24 04:44 Calcium Level 9.5 mg/dL (8.7-10.4) 8.8 mg/dL (8.7-10.4) Urinalysis Test 08/19/24 11:25 Urine Color Colorless (Yellow) Urine Clarity Ex.turbid (Clear) Urine pH 6.5 (5.0-9.0) Urine Specific [place] 1.017 (1.001-1.035) Urine Protein 1+ (Negative) H Urine Ketones Negative (Negative) Urine Blood 1+ /uL (Negative) H Urine Nitrite Negative (Negative) Urine Bilirubin Negative (Negative) Urine Urobilinogen Normal mg/dL (Negative) Urine Leukocyte Esterase Trace /uL (Negative) Urine RBC 5 /hpf (0 - 3) Urine Microscopic WBC 16 /HPF (0-3) H Urine Squamous Epithelial Cells Few /hpf (<5) Urine Renal Epithelial Cells Few /hpf (None Seen) Urine Amorphous Crystals Few /hpf (None Seen) Urine Bacteria Few /hpf (None Seen) H Urine Mucus Few (None Seen) Urine Sperm Present /hpf (None Seen) Urine Creatinine 77.13 mg/dL (30.0-125.0) Urine Sodium 15 mmol/L (40-220) L Urine Glucose 3+ mg/dL (Normal) H Blood Gas Results Test 08/20/24 19:29 08/21/24 07:00 Arterial Blood pH 7.434 (7.350-7.450) 7.407 (7.350-7.450) FiO2 % 100.0 75.0 Microbiology Microbiology Date/Time Source Procedure Growth Status 08/19/24 16:30 Sputum Gram Stain - Final Resulted 08/19/24 16:30 Sputum Respiratory Culture - Preliminary Resulted 08/19/24 11:25 Voided Urine Urine Culture - Preliminary Resulted 08/19/24 11:00 Blood Blood Culture - Preliminary NO GROWTH AFTER 24 HOURS OF INCUBATION. Resulted Labs and/or images reviewed: Labs reviewed by me, Image(s) reviewed by me Assessment/Plan Assessment/Plan Impression: -acute hypoxic respiratory failure with mechanical ventilation -probable aspiration pneumonitis/pneumonia -sepsis with shock -obesity -rule out GI bleed -diabetes mellitus with severe hyperglycemia -hyponatremia -hypochloremia -hypokalemia -acute kidney injury, vasomotor nephropathy Plan: -events: Patient continues to have poor oxygenation, currently on her% FiO2. Patient had HD catheter placed yesterday with patient receiving his 2nd treatment today. Discussed case with Nephrology for possible CT angiogram to rule out PE given chest x-ray results. -continue antibiotic therapy with cefepime and vancomycin -nephrology consultation: Recommendations reviewed -echocardiogram with ejection fraction around/less than 40% -NG to low intermittent suction -normal saline at 50 mL/hour -continue Protonix 40 mg IV twice a day, add Carafate 1 g q.i.d. -regular insulin sliding scale, aggressive scale -potassium replacement -repeat labs, chest x-ray, ABG in a.m. -consider performing CT angiogram of the chest rule out PE once FiO2 requirements have improved. -GI consultation Critical care time spent with patient discussing and formulating plan of care: 90 minutes. This does not include time spent performing procedures. This medical document was created using an electronic medical record system with [employer] dictation system. Although this document has been carefully reviewed, there may still be some phonetic and typographical errors. These areas are purely typographical due to imperfections of the software programs, and do not reflect any compromise in the patient's medical care. Plan discussed with: Patient, Other (RN) My Orders Orders - LION ORELLANA NP Procedure Category Date Status Time Bisacodyl Suppository PHA 08/20/24 In Process (Dulcolax Supposit 11:15 Mrsa Screen MIRLANDE 08/20/24 In Process 22:29 * Wound Consult CONS 08/21/24 Transmitted * [facility] [employer] CONS 08/21/24 Transmitted 10:47 Sucralfate Susp PHA 08/21/24 Logged (Carafate Susp) 11:30 Metoclopramide Oral PHA 08/21/24 Logged Soln (Reglan Oral So 14:00 Lactulose Oral PHA 08/21/24 Logged 11:00 Date of Service: Aug 21, 2024 Billing Provider: LION ORELLANA NP Common Visit Codes: 82560-[id number] CARE 30-74 MIN LION ORELLANA NP Aug 21, 2024 10:59
[2024-08-21 11:40] LABS: Hepatitis A Ab IgM Negative; Hepatitis B Core IgM Negative (Negative); Hepatitis B Surface Antigen Negative (Negative); Hepatitis C Antibody Negative (Negative)
[2024-08-21] MEDS: SUCRALFATE 1 GM/10 ML ORAL SUSP GT SCH (12:43)
[2024-08-21] MEDS: LACTULOSE 20Gm/30ML SOLN JT SCH (12:43)
[2024-08-21] MEDS: METOCLOPRAMIDE 10 mg/10ml ORAL soln GT SCH (15:26)
--- NOTE | 2024-08-21 15:30 | DVHPN2 ---
Progress Note - Dictate Date Seen: Aug 21, 2024 Medical Necessity Reason Pt with a Central, PICC or Fol: Yes The following are medically ne: Central Line, Chavez Catheter Reason for chavez catheter: Strict I&O Subjective Tolerated dialysis vital signs Vital Sign Date Time Temp Pulse Resp B/P (MAP) Pulse Ox O2 Delivery O2 Flow Rate FiO2 08/21/24 15:00 98 20 93/47 (62) 98 08/21/24 14:02 100 08/21/24 14:00 Mechanical Ventilator+ 08/21/24 12:00 99.8 99.8 08/19/24 21:11 2 Total Intake and Output 08/20/24 08/20/24 08/21/24 15:00 23:00 07:00 Intake Total 1130.25 ml 994.75 ml 787.25 ml Output Total 150 ml 450 ml Balance 1130.25 ml 844.75 ml 337.25 ml medications Current Medications Medications Dose Ordered Sig/Nikki Route Start Time Stop Time Status Last Admin Dose Admin Ondansetron HCl 4 mg Q4HP PRN IV 08/19/24 13:30 Enoxaparin Sodium 30 mg DAILY SC 08/20/24 10:00 08/21/24 07:51 30 MG Nitroglycerin 0.4 mg Q5MINP PRN SL 08/19/24 13:30 Morphine Sulfate 2 mg Q30M PRN IV 08/19/24 13:30 Diagnostic Test (Pha) 1 strip ACHS 08/19/24 17:00 Cancel Vancomycin HCl 0 ml @ 0 mls/hr UD IV 08/19/24 16:00 Cefepime HCl 50 ml @ 12.5 mls/hr DAILY@2200 IV 08/19/24 22:00 08/20/24 21:08 12.5 MLS/HR Norepinephrine Bitartrate 250 ml @ 3.75 mls/hr Q24H IV 08/19/24 17:15 Cancel Midazolam HCl 50 ml @ 1 mls/hr Q24H IV 08/19/24 17:15 08/21/24 14:49 12 MLS/HR Fentanyl Citrate 250 ml @ 2.5 mls/hr Q24H IV 08/19/24 17:15 08/21/24 14:48 10 MLS/HR Ipratropium [place] 0.5 mg Q6HR NEB 08/19/24 18:00 08/21/24 11:50 0.5 MG Albuterol 2.5 mg Q6HR NEB 08/19/24 18:00 08/21/24 11:50 2.5 MG Diagnostic Test (Pha) 1 strip IQ4HR 08/19/24 20:00 08/21/24 12:15 1 STRIP Insulin Human Regular IQ4HR SC 08/19/24 20:00 08/21/24 08:04 8 UNITS Dextrose 50 ml UD PRN IV 08/19/24 19:15 Norepinephrine Bitartrate 250 ml @ 3.75 mls/hr Q24H IV 08/20/24 00:15 08/21/24 12:15 22.5 MLS/HR Pantoprazole Sodium 40 mg BID IV 08/20/24 22:00 08/21/24 08:03 40 MG Bisacodyl 10 mg DAILYP PRN [place] 08/20/24 11:15 Sodium Chloride 1,000 ml @ 50 mls/hr Q20H IV 08/20/24 20:00 08/20/24 20:52 50 MLS/HR Acetaminophen 650 mg Q6HP PRN [place] 08/21/24 01:45 08/21/24 04:21 650 MG Sucralfate 1 gm QID@0600,1130,1700,2200 GT 08/21/24 11:30 08/21/24 12:43 1 GM Metoclopramide HCl 10 mg Q8HR GT 08/21/24 14:00 08/21/24 15:26 10 MG Lactulose 30 ml DAILY JT 08/21/24 11:00 08/21/24 12:43 30 ML objective gen: intubated and sedated lungs: distant breath sounds cvs: no rub laboratory and microbiology Laboratory Tests 08/21/24 04:44 Test 08/21/24 04:44 Range/Units Serum Glucose 220 #H 74-106 mg/dL Assessment/Plan Acute kidney injury in the setting of shock and hypotension CKD unspecified baseline unknown hx BPH Septic shock Cardiac arrest Acute respiratory failure Hypernatremia Urinary tract infection - repeat dialysis treatment August 22 - as hemodynamics permit. Plan discussed with: Other GERARDO KEITH MD Aug 21, 2024 15:30
[2024-08-21] MEDS: NOREPINEPHRINE BITARTRATE 32 MG in SODIUM CHL 0.9% 218 ML IV SCH (16:46)
[2024-08-22] VITALS (105 sets, daily range): BP systolic 85–146; BP diastolic 32–67; PULSE 79–102; RESP 13–25; TEMP 98.6–100.6; O2SAT 20–99
[2024-08-22 04:15] LABS: Hemoglobin 9.5 g/dL (13.5-17.5); Red Cell Distribution Width 13.6 % (11.8-14.3)
[2024-08-22 04:18] LABS: Anion Gap 14 (5-15); Carbon Dioxide 26 mmol/L (20-31)
[2024-08-22 04:20] LABS: Hematocrit 27.6 % (41.0-53.0); Mean Corpuscular Hemoglobin 30.7 pg (28.0-32.0); Mean Corpuscular Hgb Conc. 34.3 g/dL (32.0-36.0); Mean Corpuscular Volume 89.4 fL (80.0-100.0); Platelet Count (auto) 156 10^3/uL (140-450); Red Blood Cells 3.09 10^6/uL (4.5-5.90)
[2024-08-22 04:24] LABS: BUN/Creatinine Ratio 12.5 (10.0-20.0)
[2024-08-22 04:39] LABS: Basophils % (manual) 0 (0.0-2.0); Blast Cells 0; Blood Urea Nitrogen 97 mg/dL (9-23); Chloride 92 mmol/L (98-107); Glucose 154 mg/dL (74-106); Promyelocytes % 0; Reactive Lymphocytes 0; Sodium 132 mmol/L (136-145)
[2024-08-22 04:55] LABS: Band Neutrophils % (manual) 15; Eosinophils % (manual) 3 (0-7); Lymphocytes % (manual) 1 (10.0-50.0); Metamyelocytes % 1; Monocytes % (manual) 4 (0-12); Myelocytes % 1
[2024-08-22 04:56] LABS: Platelet Estimate Adequate
--- NOTE | 2024-08-22 05:05 | DVHPN2 ---
Progress Note - Dictate Date Seen: Aug 21, 2024 Medical Necessity Reason Pt with a Central, PICC or Fol: Yes The following are medically ne: Central Line, Chavez Catheter Reason for chavez catheter: Strict I&O Subjective Patient seen and examined at bedside. Sedated, intubated on mechanical ventilator. Overnight events reviewed. vital signs Vital Sign Date Time Temp Pulse Resp B/P (MAP) Pulse Ox O2 Delivery O2 Flow Rate FiO2 08/22/24 04:02 91 24 124/44 (70) 93 55 08/22/24 04:00 Mechanical Ventilator+ 08/22/24 04:00 100.6 100.6 Total Intake and Output 08/21/24 08/21/24 08/22/24 15:00 23:00 07:00 Intake Total 819.20 ml 700.25 ml 62182.625 ml Output Total 150 ml 400 ml Balance 819.20 ml 550.25 ml 97771.625 ml medications Current Medications Medications Dose Ordered Sig/Nikki Route Start Time Stop Time Status Last Admin Dose Admin Ondansetron HCl 4 mg Q4HP PRN IV 08/19/24 13:30 Enoxaparin Sodium 30 mg DAILY SC 08/20/24 10:00 08/21/24 07:51 30 MG Nitroglycerin 0.4 mg Q5MINP PRN SL 08/19/24 13:30 Morphine Sulfate 2 mg Q30M PRN IV 08/19/24 13:30 Diagnostic Test (Pha) 1 strip ACHS 08/19/24 17:00 Cancel Vancomycin HCl 0 ml @ 0 mls/hr UD IV 08/19/24 16:00 Cefepime HCl 50 ml @ 12.5 mls/hr DAILY@2200 IV 08/19/24 22:00 08/21/24 22:56 12.5 MLS/HR Norepinephrine Bitartrate 250 ml @ 3.75 mls/hr Q24H IV 08/19/24 17:15 Cancel Midazolam HCl 50 ml @ 1 mls/hr Q24H IV 08/19/24 17:15 08/22/24 03:21 12 MLS/HR Fentanyl Citrate 250 ml @ 2.5 mls/hr Q24H IV 08/19/24 17:15 08/21/24 14:48 10 MLS/HR Ipratropium [place] 0.5 mg Q6HR NEB 08/19/24 18:00 08/21/24 23:26 0.5 MG Albuterol 2.5 mg Q6HR NEB 08/19/24 18:00 08/21/24 23:26 2.5 MG Diagnostic Test (Pha) 1 strip IQ4HR 08/19/24 20:00 08/22/24 03:50 1 STRIP Insulin Human Regular IQ4HR SC 08/19/24 20:00 08/22/24 03:54 2 UNITS Dextrose 50 ml UD PRN IV 08/19/24 19:15 Pantoprazole Sodium 40 mg BID IV 08/20/24 22:00 08/21/24 23:03 40 MG Bisacodyl 10 mg DAILYP PRN [place] 08/20/24 11:15 Sodium Chloride 1,000 ml @ 50 mls/hr Q20H IV 08/20/24 20:00 08/21/24 21:10 50 MLS/HR Acetaminophen 650 mg Q6HP PRN [place] 08/21/24 01:45 08/22/24 03:48 650 MG Sucralfate 1 gm QID@0600,1130,1700,2200 GT 08/21/24 11:30 08/21/24 23:04 1 GM Metoclopramide HCl 10 mg Q8HR GT 08/21/24 14:00 08/21/24 23:06 10 MG Lactulose 30 ml DAILY JT 08/21/24 11:00 08/21/24 12:43 30 ML Norepinephrine Bitartrate 32 mg/ Sodium Chloride 250 ml @ 0.938 mls/ hr Q24H IV 08/21/24 16:30 08/21/24 16:46 7.5 MLS/HR objective Gen.: Patient lying in bed in medical ICU. Sedated, intubated on mechanical ventilator. Head: Normocephalic, atraumatic. Eyes: PERRLA. Ears: Normal external anatomy. Throat: Endotracheal tube and orogastric tube in place. Neck: Supple, trachea midline. Chest: Transmitted breath sounds bilaterally. Decreased air entry bilaterally. No wheezing. Bibasilar crackles. Cardiovascular: Positive S1, positive S2. Regular rate and rhythm. Abdomen: Positive bowel sounds in all 4 quadrants. Soft, nontender, nondistended. : Chavez in place. Normal external genitalia. Rectal: Deferred. Skin: Warm, dry. Intact. Extremities: 2+ radial pulses bilaterally. No lower extremity edema. Neuro: Sedated laboratory and microbiology Laboratory Tests 08/22/24 03:18 Test 08/22/24 03:18 Range/Units Serum Glucose 154 H 74-106 mg/dL Assessment/Plan Impression: Acute hypoxic respiratory failure On mechanical ventilator Gastrointestinal hemorrhage, upper Aspiration pneumonia MAGDALENA mucous plug Obesity BMI 35.9 Events: Remains on vent support Vent settings: PCV mode; respiratory rate 18; I-Pressure 20; I-time 0.8, PEEP 12, FiO2 75% Sedated on Versed, Fentanyl Pressors for hemodynamic support On Levophed Titrate to keep mean arterial pressure greater than 65 mmHg. IV fluids with NS at 50 ml/hr. HD per Nephrology- S/p hemodialysis yesterday Monitor renal function Monitor electrolytes. Supplement as necessary. Nephrology recommendations appreciated. Continue bronchodilators Continue antibiotics. Follow up cultures ABG reviewed, compensated CXR reviewed, no pulmonary edema, effusion or pneumothorax. Monitor hemoglobin GI recs appreciated Accu-Cheks, ISS Labs and imaging reviewed. Rest of plan as noted below Plan: s/p intubation on mechanical ventilator. Placed on PC mode due to high peak pressure Vent settings: PCV mode; respiratory rate 18; I-Pressure 20; I-time 0.8, PEEP 12, FiO2 75% Titrate FIO2 to keep O2 saturation above 90%. VAP bundle. Daily ABG and CXR while intubated Sedate for ventilator synchrony Patient underwent therapeutic bronchoscopy on 08/19/24 with clearing of mucous plugging. Aspirated coffee ground material removed from within the bilateral lungs. See separate procedure note for details. Continue bronchodilators. Continue antibiotics. Pressors as necessary for hemodynamic support Titrate to keep mean arterial pressure greater than 65 mmHg. Monitor hemoglobin Follow up GI recs IV fluids with NS Monitor renal function Monitor electrolytes. Supplement as necessary. Monitor ins and outs. Accu-Cheks, ISS GI prophylaxis - Protonix. DVT prophylaxis - Lovenox. Prognosis: Poor given patient's multiple co-morbidities. Condition: Critical Rest of plan per hospitalist and other consultants. A total of 35 minutes of critical care time was spent reviewing the patient record, examining the patient, making a diagnostic and therapeutic plan, discussing this plan with the medical personnel, following up on diagnostic studies and following the patient for clinical stability excluding any and all procedures. At least 50% of this time was spent in direct, [id number] contact. Thank you, DEON Morrison, for allowing me to participate in this patient's care. Further recommendations will depend on the patient's clinical course. Please do not hesitate to contact me if you have any questions or concerns. This medical document was created using an electronic medical record system with [employer] dictation system. Although these documentations are being carefully reviewed, there may still be some phonetic and typographical changes. The errors are purely typographical, due to imperfection on the software program, and do not reflect any compromise in the patient's medical care. Plan discussed with: Other (RN) Critical Care Time(min): 35 LINO CARRION MD Aug 22, 2024 05:05
--- NOTE | 2024-08-22 05:44 | DVH ---
CHEST RADIOGRAPH Indication: aspiration pna Technique: Single frontal view of the chest was obtained Comparison: XY CHEST PORTABLE on DOS: 08/21/24, XY CHEST PORTABLE on DOS: 08/20/24, XY CHEST XRAY 1 VIE W on DOS: 08/19/24 IMPRESSION: Heart appears normal in size. Endotracheal tube tip approximately 6 cm from the jasbir. Enteric tube tip in the region of the stomach. Right IJ catheter in the cavoatrial junction. Moderate pulmonary vascular congestion, increased. Difficult to exclude superimposed patchy airspace opacities of the roger ng bases. Possible small right effusion. No pneumothorax.
[2024-08-22] MEDS: SODIUM CHL 0.9% 1000 ML BAG XX ONE ×2 (07:00→12:30)
[2024-08-22 07:47] LABS: Base Excess 2.4 mmol/L (-2.0-3.0)
--- NOTE | 2024-08-22 12:08 | DVHPN2 ---
Reviewed: Care Plan, H&P, Labs, Medications, Previous Orders Changes from previous H/P or p: No Changes General: Per HPI Eyes: No Pain, No Vision change, No Conjunctivae inflammation, No Eyelid inflammation, No Other, No Redness ENT: No Ear pain, No Ear discharge, No Nose pain, No Nose discharge, No Nose congestion, No Mouth pain, No Mouth swelling, No Throat pain, No Throat swelling, No Other Cardiovascular: No Chest Pain, No Palpitations, No Orthopnea, No Paroxysmal Noc. Dyspnea, No Edema, No Lt Headedness, No Other Respiratory: No Cough, No Dry, No Shortness of breath, No SOB with excertion, No Wheezing, No Hemoptysis, No Pleuritic Pain, No Sputum, No Other Gastrointestinal: Nausea, Vomiting; No Abdominal Pain, No Diarrhea; C onstipation; No Melena, No Hematochezia, No Other Genitourinary: No Dysuria, No Frequency, No Incontinence, No Hematuria, No Retention, No Other Musculoskeletal: No other, No neck pain, No shoulder pain, No arm pain, No back pain, No hand pain, No leg pain, No foot pain Skin: No Rash, No Lesions, No Jaundice, No Bruising, No Other Objective Vitals Vital Signs Date Time Temp Pulse Resp B/P (MAP) Pulse Ox O2 Delivery O2 Flow Rate FiO2 08/22/24 10:30 87 18 118/49 (72) 96 08/22/24 10:16 65 08/22/24 09:32 Mechanical Ventilator+ 08/22/24 07:30 99.5 99.5 Intake/Output Intake and Output 08/22/24 07:00 Intake Total 2200.638 ml Output Total 900 ml Balance 1300.638 ml Intake Oral 175 ml IV Total 2025.638 ml Output Urine Total 250 ml Gastric Drainage Total 650 ml General Appearance: Alert, Oriented X3, Cooperative, moderate distress, Other (Chemically sedated) HEENT: Atraumatic, PERRLA Lungs: Other (Bilateral rhonchi. Mechanical ventilation) Cardiovascular: Normal S1, Normal S2 Musculoskeletal: Normal sensory function, Normal motor function Neuro: Other (Unable to assess) Skin: Dry, Intact Psych/Mental Status: Other (Unable to assess) Medications Current Medications Medications Dose Ordered Sig/Nikki Route Start Time Stop Time Status Last Admin Dose Admin Ondansetron HCl 4 mg Q4HP PRN IV 08/19/24 13:30 Enoxaparin Sodium 30 mg DAILY SC 08/20/24 10:00 08/21/24 07:51 30 MG Nitroglycerin 0.4 mg Q5MINP PRN SL 08/19/24 13:30 Morphine Sulfate 2 mg Q30M PRN IV 08/19/24 13:30 Diagnostic Test (Pha) 1 strip ACHS 08/19/24 17:00 Cancel Vancomycin HCl 0 ml @ 0 mls/hr UD IV 08/19/24 16:00 Cefepime HCl 50 ml @ 12.5 mls/hr DAILY@2200 IV 08/19/24 22:00 08/21/24 22:56 12.5 MLS/HR Norepinephrine Bitartrate 250 ml @ 3.75 mls/hr Q24H IV 08/19/24 17:15 Cancel Midazolam HCl 50 ml @ 1 mls/hr Q24H IV 08/19/24 17:15 08/22/24 11:53 12 MLS/HR Fentanyl Citrate 250 ml @ 2.5 mls/hr Q24H IV 08/19/24 17:15 08/21/24 14:48 10 MLS/HR Ipratropium [place] 0.5 mg Q6HR NEB 08/19/24 18:00 08/22/24 12:00 0.5 MG Albuterol 2.5 mg Q6HR NEB 08/19/24 18:00 08/22/24 12:00 2.5 MG Diagnostic Test (Pha) 1 strip IQ4HR 08/19/24 20:00 08/22/24 11:54 1 STRIP Insulin Human Regular IQ4HR SC 08/19/24 20:00 08/22/24 07:59 2 UNITS Dextrose 50 ml UD PRN IV 08/19/24 19:15 Pantoprazole Sodium 40 mg BID IV 08/20/24 22:00 08/22/24 07:45 40 MG Bisacodyl 10 mg DAILYP PRN [place] 08/20/24 11:15 Sodium Chloride 1,000 ml @ 50 mls/hr Q20H IV 08/20/24 20:00 08/21/24 21:10 50 MLS/HR Acetaminophen 650 mg Q6HP PRN IL 08/21/24 01:45 08/22/24 03:48 650 MG Sucralfate 1 gm QID@0600,1130,1700,2200 GT 08/21/24 11:30 08/22/24 11:53 1 GM Metoclopramide HCl 10 mg Q8HR GT 08/21/24 14:00 08/22/24 11:53 10 MG Lactulose 30 ml DAILY JT 08/21/24 11:00 08/21/24 12:43 30 ML Norepinephrine Bitartrate 32 mg/ Sodium Chloride 250 ml @ 0.938 mls/ hr Q24H IV 08/21/24 16:30 08/21/24 16:46 7.5 MLS/HR Laboratory Results Laboratory Tests 08/22/24 03:18 Chemistry Test 08/22/24 03:18 Calcium Level 9.0 mg/dL (8.7-10.4) Urinalysis Test 08/19/24 11:25 Urine Color Colorless (Yellow) Urine Clarity Ex.turbid (Clear) Urine pH 6.5 (5.0-9.0) Urine Specific [place] 1.017 (1.001-1.035) Urine Protein 1+ (Negative) H Urine Ketones Negative (Negative) Urine Blood 1+ /uL (Negative) H Urine Nitrite Negative (Negative) Urine Bilirubin Negative (Negative) Urine Urobilinogen Normal mg/dL (Negative) Urine Leukocyte Esterase Trace /uL (Negative) Urine RBC 5 /hpf (0 - 3) Urine Microscopic WBC 16 /HPF (0-3) H Urine Squamous Epithelial Cells Few /hpf (<5) Urine Renal Epithelial Cells Few /hpf (None Seen) Urine Amorphous Crystals Few /hpf (None Seen) Urine Bacteria Few /hpf (None Seen) H Urine Mucus Few (None Seen) Urine Sperm Present /hpf (None Seen) Urine Creatinine 77.13 mg/dL (30.0-125.0) Urine Sodium 15 mmol/L (40-220) L Urine Glucose 3+ mg/dL (Normal) H Blood Gas Results Test 08/22/24 07:39 Arterial Blood pH 7.420 (7.350-7.450) FiO2 % 55.0 Microbiology Microbiology Date/Time Source Procedure Growth Status 08/20/24 22:05 Nose MRSA Screen - Final Complete 08/19/24 16:30 Sputum Gram Stain - Final Resulted 08/19/24 16:30 Sputum Respiratory Culture - Preliminary Resulted 08/19/24 11:25 Voided Urine Urine Culture - Preliminary Resulted 08/19/24 11:00 Blood Blood Culture - Preliminary NO GROWTH AFTER 72 HOURS OF INCUBATION. Resulted Labs and/or images reviewed: Labs reviewed by me, Image(s) reviewed by me Assessment/Plan Assessment/Plan Impression: -acute hypoxic respiratory failure with mechanical ventilation -probable aspiration pneumonitis/pneumonia -sepsis with shock -obesity -rule out GI bleed -diabetes mellitus with severe hyperglycemia -hyponatremia -hypochloremia -hypokalemia -acute kidney injury,ATN 08/22/2024: pt to continue with vent management nephrology to evaluate for dialysis if needed Plan discussed with: Other (nursing) Date of Service: Aug 22, 2024 Billing Provider: RONN HYATT DO Common Visit Codes: [id number] INP/OBS CARE(HIGH) RONN HYATT DO Aug 22, 2024 12:08
--- NOTE | 2024-08-22 12:24 | DVHPN2 ---
Progress Note - Dictate Date Seen: Aug 22, 2024 Medical Necessity Reason Pt with a Central, PICC or Fol: Yes The following are medically ne: Central Line, Chavez Catheter Reason for chavez catheter: Strict I&O Subjective Reported coffee-ground drainage from nasogastric tube vital signs Vital Sign Date Time Temp Pulse Resp B/P (MAP) Pulse Ox O2 Delivery O2 Flow Rate FiO2 08/22/24 12:15 102 18 141/63 (89) 93 08/22/24 12:00 Mechanical Ventilator+ 65 65 08/22/24 12:00 98.6 98.6 Total Intake and Output 08/21/24 08/21/24 08/22/24 15:00 23:00 07:00 Intake Total 819.20 ml 700.25 ml 681.188 ml Output Total 150 ml 750 ml Balance 819.20 ml 550.25 ml -68.812 ml medications Current Medications Medications Dose Ordered Sig/Nikki Route Start Time Stop Time Status Last Admin Dose Admin Ondansetron HCl 4 mg Q4HP PRN IV 08/19/24 13:30 Enoxaparin Sodium 30 mg DAILY SC 08/20/24 10:00 08/21/24 07:51 30 MG Nitroglycerin 0.4 mg Q5MINP PRN SL 08/19/24 13:30 Morphine Sulfate 2 mg Q30M PRN IV 08/19/24 13:30 Diagnostic Test (Pha) 1 strip ACHS 08/19/24 17:00 Cancel Vancomycin HCl 0 ml @ 0 mls/hr UD IV 08/19/24 16:00 Cefepime HCl 50 ml @ 12.5 mls/hr DAILY@2200 IV 08/19/24 22:00 08/21/24 22:56 12.5 MLS/HR Norepinephrine Bitartrate 250 ml @ 3.75 mls/hr Q24H IV 08/19/24 17:15 Cancel Midazolam HCl 50 ml @ 1 mls/hr Q24H IV 08/19/24 17:15 08/22/24 11:53 12 MLS/HR Fentanyl Citrate 250 ml @ 2.5 mls/hr Q24H IV 08/19/24 17:15 08/21/24 14:48 10 MLS/HR Ipratropium [place] 0.5 mg Q6HR NEB 08/19/24 18:00 08/22/24 12:00 0.5 MG Albuterol 2.5 mg Q6HR NEB 08/19/24 18:00 08/22/24 12:00 2.5 MG Diagnostic Test (Pha) 1 strip IQ4HR 08/19/24 20:00 08/22/24 11:54 1 STRIP Insulin Human Regular IQ4HR SC 08/19/24 20:00 08/22/24 07:59 2 UNITS Dextrose 50 ml UD PRN IV 08/19/24 19:15 Pantoprazole Sodium 40 mg BID IV 08/20/24 22:00 08/22/24 07:45 40 MG Bisacodyl 10 mg DAILYP PRN [place] 08/20/24 11:15 Sodium Chloride 1,000 ml @ 50 mls/hr Q20H IV 08/20/24 20:00 08/21/24 21:10 50 MLS/HR Acetaminophen 650 mg Q6HP PRN [place] 08/21/24 01:45 08/22/24 03:48 650 MG Sucralfate 1 gm QID@0600,1130,1700,2200 GT 08/21/24 11:30 08/22/24 11:53 1 GM Metoclopramide HCl 10 mg Q8HR GT 08/21/24 14:00 08/22/24 11:53 10 MG Lactulose 30 ml DAILY JT 08/21/24 11:00 08/21/24 12:43 30 ML Norepinephrine Bitartrate 32 mg/ Sodium Chloride 250 ml @ 0.938 mls/ hr Q24H IV 08/21/24 16:30 08/21/24 16:46 7.5 MLS/HR objective gen: intubated and sedated lungs: distant breath sounds [facility]: [facility] laboratory and microbiology Laboratory Tests 08/22/24 03:18 Test 08/22/24 03:18 Range/Units Serum Glucose 154 H 74-106 mg/dL Assessment/Plan Acute kidney injury, possible ischemic ATN CKD unspecified baseline unknown hx BPH Septic shock Cardiac arrest Acute respiratory failure Hypernatremia Urinary tract infection - dialysis today for solute removal - no heparin with dialysis due to concern of possible enteral blood loss Dietary Evaluation Review Recommendations by RD: Protein Supplementation, PPN/TPN Comments: Pt is at high risk of malnutrition due to prolonged vomiting leading to inadequate nutrient intake and hypermetabolic state secondary to acute inflammation. Recommendation: 1) Start PN/TPN per pharmacy 2) If GI is accessible, consider TF Pivot 1.5Cal @ 60ml/hr along with Pro-stat 1 pk TID. Start @ 10ml/hr, increase 10ml/hr Q4H until goal rate is reached. Advance TF rate slowly and gradually to prevent Refeeding syndrome. Water Flush 50ml Q4H if allowed. TF Provision --- TF at goal volume to provide 1440 ml total volume, 2160 kcal (+300 kcal via Pro-stat = 2460 kcal), 135 gm pro (+45 gm via ProStat = 180 gm), 1093 ml H20 (meets 100% est. kcal needs, 100% est. protein needs) 3) Monitor Potassium, Phosphate, Magnesium for Refeeding syndrome 4) Des 1 pk daily For DTI 5) Continue current plan of care Expected Outcomes/Goals: Blood glucose to improve Nutrient intake to meet at least 75% estimated needs FU 2-3 days Food and Nutrition Intake (Mod: <75% est energy req 7days Plan discussed with: Other GERARDO KEITH MD Aug 22, 2024 12:24
[2024-08-22] MEDS ORDERED: CLINIMIX PER PHARMACY 0 ML IV SCH (15:30)
--- NOTE | 2024-08-22 15:46 | DVHINCON2 ---
Date of service: Aug 22, [address] Wilson Reason for Consultation GI bleed anemia History of Present Illness This 44-year-old male with a history of hypertension and diabetes came to the emergency room with a history of disorientation etc. stasis and ataxia for 10 days. Patient has got history of diabetes and hyperglycemia. And hypotension. Patient was given some or some thick also before she got got more lethargic. Sugar was found to be 505 on in the ER and then from there admitted. Patient also was found to intubated because of altered level of consciousness and had some GI bleed in the hemoglobin coffee-ground material which stopped now he moglobin had dropped 10 now normal coffee-ground emesis patient has no history of any ulcer disease of the pathology. Reason for the GI consult is for the GI bleeding Past Medical History Diabetes Past Surgical History None Family History Noncontributory Social History [id number] smoking drinking Allergies: Coded Allergies: NO KNOWN ALLERGIES (Unverified , 10/02/14) Current Medications Current Medications Medications (Trade) Dose Ordered Sig/Nikki Route PRN Reason Start Time Stop Time Status Last Admin Norepinephrine Bitartrate 32 mg/ Sodium Chloride 250 ml @ 0.938 mls/ hr Q24H IV 08/21/24 16:30 08/21/24 16:46 Amino Acids 0 ml @ 0 mls/hr PER PHARMACY IV 08/22/24 15:30 UNV Review of Systems Noncontributory Vital Signs Vital Signs Date Time Temp Pulse Resp B/P (MAP) Pulse Ox O2 Delivery O2 Flow Rate FiO2 08/22/24 15:34 65 08/22/24 15:34 18 97 Mechanical Ventilator+ 08/22/24 15:34 98 08/22/24 14:15 93/43 (60) 08/22/24 12:00 98.6 98.6 Physical Exam Moderately built slightly obese male in intubated now and unresponsive NG-tube was no gross bleed at this time Lungs are clear Cardiovascular unremarkable Abdomen is soft no tenderness no rigidity no guarding slightly obese extremities no edema Labs/Diagnostic Data Labs Test 08/22/24 12:34 08/22/24 07:39 08/22/24 03:18 08/20/24 19:29 Range/Units POC Glucose 124 H 70-106 mg/dl Blood Gas Specimen Type Arterial Blood Gas Sample Site Right radial Blood Gas Patient Temperature 37.0 Arterial Blood Date Drawn [id number] Arterial Blood pH 7.420 7.350-7.450 Arterial Blood Partial Pressure CO2 42.8 35.0-48.0 mmHg Arterial Blood Partial Pressure O2 51.2 *L 83.0-108.0 mmHg Arterial Blood HCO3 27.1 21.0-28.0 mmol/L Arterial Blood Oxygen Saturation 86.3 L 94.0-98.0 % Arterial Blood Base Excess 2.4 -2.0-3.0 mmol/L Arterial Blood Oxyhemoglobin 85.8 L 94.0-98.0 % Arterial Blood Carboxyhemoglobin 0.3 L 0.5-1.5 % Arterial Blood Methemoglobin 0.3 0.0-1.5 % Jasvir Test Modified Blood Gas Total Hemoglobin 11.80 L 13.5-17.5 g/dL Blood Gas Set Respiration Rate 18.0 Blood Gas Modality Vent - p/c FiO2 % 55.0 Blood Gas Inspiratory Pressure 20.0 Blood Gas PEEP or CPAP 12.0 Blood Gas Critical Value Read Back yes Blood Gas Notified Whom elda Wilson np Blood Gas Notified Time [id number] Blood Gas Notified By White Blood Count 50.0 *H 4.4-10.8 10^3/uL Red Blood Count 3.09 L 4.5-5.90 10^6/uL Hemoglobin 9.5 L 13.5-17.5 g/dL Hematocrit 27.6 #L 41.0-53.0 % Mean Corpuscular Volume 89.4 80.0-100.0 fL Mean Corpuscular Hemoglobin 30.7 28.0-32.0 pg Mean Corpuscular Hemoglobin Concent 34.3 32.0-36.0 g/dL Red Cell Distribution Width 13.6 11.8-14.3 % Platelet Count 156 140-450 10^3/uL Mean Platelet Volume 10.5 6.9-10.8 fL Neutrophils (%) (Auto) 37.0-80.0 % Lymphocytes (%) (Auto) 10.0-50.0 % Monocytes (%) (Auto) 0.0-12.0 % Basophils (%) (Auto) 0.0-2.0 % Neutrophils # (Auto) 1.6-8.6 10 ^3/uL Lymphocytes # (Auto) 0.4-5.4 10 ^3/uL Monocytes # (Auto) 0-1.3 10 ^3/uL Differential Total Cells Counted 100.0 100 Neutrophils % (Manual) 75 37.0-80.0 Band Neutrophils % (Manual) 15 Lymphocytes % (Manual) 1 L 10.0-50.0 Monocytes % (Manual) 4 0-12 Eosinophils % (Manual) 3 0-7 Basophils % (Manual) 0 0.0-2.0 Metamyelocytes % (manual) 1 Myelocytes % (Manual) 1 Promyelocytes % (Manual) 0 Blast Cells % (Manual) 0 Reactive Lymphocytes 0 Platelet Estimate Adequate Sodium Level 132 L 136-145 mmol/L Potassium Level 4.0 3.5-5.1 mmol/L Chloride Level 92 #L 98-107 mmol/L Carbon Dioxide Level 26 20-31 mmol/L Anion Gap 14 5-15 Blood Urea Nitrogen 97 #*H 9-23 mg/dL Creatinine 7.78 H 0.700-1.30 mg/dL Glomerular Filtration Rate Calc 8 >90 mL/min BUN/Creatinine Ratio 12.5 10.0-20.0 Serum Glucose 154 H 74-106 mg/dL Calcium Level 9.0 8.7-10.4 mg/dL Random Vancomycin Level 15.7 H 5-10 ug/mL Blood Gas Comments Test 08/20/24 13:11 08/20/24 12:24 08/20/24 07:35 08/20/24 06:42 Range/Units Hepatitis A IgM Antibody Negative Hepatitis B Surface Antigen Negative Negative Hepatitis B Core IgM Antibody Negative Negative Hepatitis C Antibody Negative Negative Influenza Type A Antigen Negative Negative Influenza Type B Antigen Negative Negative SARS-CoV-2 Antigen (Rapid) Negative NEGATIVE Blood Gas Spontaneous Rate 21 Total Bilirubin < 0.2 L 0.2-1.0 mg/dL Aspartate Amino Transferase (AST) 26 13-40 U/L Alanine Aminotransferase (ALT) 27 7-40 U/L Alkaline Phosphatase 101 46-116 U/L Total Protein 6.0 5.7-8.2 g/dL Albumin 3.7 3.2-4.8 g/dL Test 08/19/24 20:50 08/19/24 16:55 08/19/24 16:07 08/19/24 15:07 Range/Units Blood Gas Pressure Support 26 D-Dimer, Quantitative 1.19 H 0.0-0.49 mg/L FEU Creatine Kinase 115 46-171 U/L Amylase Level 47 30-118 U/L Lipase 41 12-53 U/L Blood Gas Liter Flow 15.00 Magnesium Level 3.2 H 1.6-2.6 mg/dL Test 08/19/24 13:07 08/19/24 11:25 08/19/24 11:00 Range/Units Lactic Acid Level 4.6 *H 0.4-2.0 mmol/L Urine Color Colorless Yellow Urine Clarity Ex.turbid Clear Urine pH 6.5 5.0-9.0 Urine Specific [place] 1.017 1.001-1.035 Urine Protein 1+ H Negative Urine Ketones Negative Negative Urine Blood 1+ H Negative /uL Urine Nitrite Negative Negative Urine Bilirubin Negative Negative Urine Urobilinogen Normal Negative mg/dL Urine Leukocyte Esterase Trace Negative /uL Urine RBC 5 0 - 3 /hpf Urine Microscopic WBC 16 H 0-3 /HPF Urine Squamous Epithelial Cells Few <5 /hpf Urine Renal Epithelial Cells Few None Seen /hpf Urine Amorphous Crystals Few None Seen /hpf Urine Bacteria Few H None Seen /hpf Urine Mucus Few None Seen Urine Sperm Present None Seen /hpf Urine Creatinine 77.13 30.0-125.0 mg/dL Urine Sodium 15 L 40-220 mmol/L Urine Glucose 3+ H Normal mg/dL Urine Opiates Screen Neg NEGATIVE Urine Fentanyl Screen Neg NEGATIVE Urine Barbiturates Screen Neg NEGATIVE Urine Phencyclidine Screen Neg NEGATIVE Urine Amphetamines Screen Neg NEGATIVE Urine Benzodiazepines Screen Neg NEGATIVE Urine Cocaine Screen Neg NEGATIVE Urine Cannabinoids Screen Neg NEGATIVE Hemoglobin A1c 11.7 H <5.7 % A1C Beta-Hydroxybutyric Acid 0.498 H < 0.4 mmol/L Plasma/Serum Blood Alcohol < 3.0 <10 mg/dL Microbiology Date/Time Source Procedure Growth Status 08/20/24 22:05 Nose MRSA Screen - Final Complete 08/19/24 16:30 Sputum Gram Stain - Final Resulted 08/19/24 16:30 Respiratory Culture - Preliminary Presumptive Mary albicans Resulted 08/19/24 11:25 Voided Urine Urine Culture - Final Complete 08/19/24 11:00 Blood Blood Culture - Preliminary NO GROWTH AFTER 72 HOURS OF INCUBATION. Resulted Assessment 44-year-old male with a history of diabetes hypertension admitted with severe hypoglycemia and confusion disorientation and ataxia for 10 days. Patient was found to have blood sugar which no ulcers no GI bleed and hence the reason for the GI consult GI bleed is much better now no further bleeding NG-tube has no brothers this time hemoglobin is slightly dropped but stable Clinical impression diabetes uncontrolled with ketosis with a hyperglycemia electrolyte imbalance metabolic encephalopathy GI bleed possible gastritis esophagitis No gross bleeding seen at this time hemoglobin is relatively stable Plan/Recommendation We will continue with PPIs Follow the hemoglobin closely Severe bleeding may need the further evaluation and intervention as necessary His overall prognosis is guarded Thank you Dr. Graham Plan discussed with: Other ERUM GRAHAM MD Aug 22, 2024 15:46
[2024-08-22] MEDS: VANCOMYCIN 500mg/100mL 100 ML IV ONE (22:00)
[2024-08-22] MEDS: AMINO ACID INFUSION IN D10W 1,000 ML IV SCH (22:08)
--- NOTE | 2024-08-22 23:29 | DVHPN2 ---
Progress Note - Dictate Date Seen: Aug 22, 2024 Medical Necessity Reason Pt with a Central, PICC or Fol: Yes The following are medically ne: Central Line, Chavez Catheter Reason for chavez catheter: Strict I&O Subjective Patient seen and examined at bedside. Sedated, intubated on mechanical ventilator. Overnight events reviewed. vital signs Vital Sign Date Time Temp Pulse Resp B/P (MAP) Pulse Ox O2 Delivery O2 Flow Rate FiO2 08/22/24 22:45 93 18 94/57 (69) 96 08/22/24 22:18 65 08/22/24 20:00 Mechanical Ventilator+ 08/22/24 16:00 98.6 98.6 Total Intake and Output 08/21/24 08/21/24 08/22/24 15:00 23:00 07:00 Intake Total 819.20 ml 700.25 ml 681.188 ml Output Total 150 ml 750 ml Balance 819.20 ml 550.25 ml -68.812 ml medications Current Medications Medications Dose Ordered Sig/Nikki Route Start Time Stop Time Status Last Admin Dose Admin Ondansetron HCl 4 mg Q4HP PRN IV 08/19/24 13:30 Enoxaparin Sodium 30 mg DAILY SC 08/20/24 10:00 08/21/24 07:51 30 MG Nitroglycerin 0.4 mg Q5MINP PRN SL 08/19/24 13:30 Morphine Sulfate 2 mg Q30M PRN IV 08/19/24 13:30 Diagnostic Test (Pha) 1 strip ACHS 08/19/24 17:00 Cancel Vancomycin HCl 0 ml @ 0 mls/hr UD IV 08/19/24 16:00 Cefepime HCl 50 ml @ 12.5 mls/hr DAILY@2200 IV 08/19/24 22:00 08/22/24 22:00 12.5 MLS/HR Norepinephrine Bitartrate 250 ml @ 3.75 mls/hr Q24H IV 08/19/24 17:15 Cancel Midazolam HCl 50 ml @ 1 mls/hr Q24H IV 08/19/24 17:15 08/22/24 22:00 12 MLS/HR Fentanyl Citrate 250 ml @ 2.5 mls/hr Q24H IV 08/19/24 17:15 08/22/24 14:39 10 MLS/HR Ipratropium Leiter 0.5 mg Q6HR NEB 08/19/24 18:00 08/22/24 18:39 0.5 MG Albuterol 2.5 mg Q6HR NEB 08/19/24 18:00 08/22/24 18:39 2.5 MG Diagnostic Test (Pha) 1 strip IQ4HR 08/19/24 20:00 08/22/24 20:00 1 STRIP Insulin Human Regular IQ4HR SC 08/19/24 20:00 08/22/24 15:52 2 UNITS Dextrose 50 ml UD PRN IV 08/19/24 19:15 Pantoprazole Sodium 40 mg BID IV 08/20/24 22:00 08/22/24 22:06 40 MG Bisacodyl 10 mg DAILYP PRN SC 08/20/24 11:15 Sodium Chloride 1,000 ml @ 50 mls/hr Q20H IV 08/20/24 20:00 08/22/24 21:00 50 MLS/HR Acetaminophen 650 mg Q6HP PRN SC 08/21/24 01:45 08/22/24 03:48 650 MG Sucralfate 1 gm QID@0600,1130,1700,2200 GT 08/21/24 11:30 08/22/24 22:06 1 GM Metoclopramide HCl 10 mg Q8HR GT 08/21/24 14:00 08/22/24 22:06 10 MG Lactulose 30 ml DAILY JT 08/21/24 11:00 08/21/24 12:43 30 ML Norepinephrine Bitartrate 32 mg/ Sodium Chloride 250 ml @ 0.938 mls/ hr Q24H IV 08/21/24 16:30 08/22/24 22:00 2.813 MLS/HR Amino Acids 0 ml @ 0 mls/hr PER PHARMACY IV 08/22/24 15:30 Amino Acids/ Electrolytes/ Dextrose 1,000 ml @ 41 mls/hr DAILY@2200 IV 08/22/24 22:00 08/22/24 22:08 41 MLS/HR objective Gen.: Patient lying in bed in medical ICU. Sedated, intubated on mechanical ventilator. Head: Normocephalic, atraumatic. Eyes: PERRLA. Ears: Normal external anatomy. Throat: Endotracheal tube and orogastric tube in place. Neck: Supple, trachea midline. Chest: Transmitted breath sounds bilaterally. Decreased air entry bilaterally. No wheezing. Bibasilar crackles. Cardiovascular: Positive S1, positive S2. Regular rate and rhythm. Abdomen: Positive bowel sounds in all 4 quadrants. Soft, nontender, nondistended. : Chavez in place. Normal external genitalia. Rectal: Deferred. Skin: Warm, dry. Intact. Extremities: 2+ radial pulses bilaterally. No lower extremity edema. Neuro: Sedated laboratory and microbiology Laboratory Tests 08/22/24 03:18 Test 08/22/24 03:18 Range/Units Serum Glucose 154 H 74-106 mg/dL Assessment/Plan Impression: Acute hypoxic respiratory failure On mechanical ventilator Gastrointestinal hemorrhage, upper Aspiration pneumonia MAGDALENA mucous plug Obesity BMI 35.9 Events: Remains on vent support Vent settings: PCV mode; respiratory rate 18; I-Pressure 20; I-time 0.8, PEEP 12, FiO2 65% Sedated on Versed, Fentanyl Pressors for hemodynamic support On Levophed 6 mcg/min Titrate to keep mean arterial pressure greater than 65 mmHg. Increased ET tube secretions Obtain consent for bronchoscopy with BAL for clearing of secretions Remains on high PEEP. NGT with coffee-ground material Monitor hemoglobin IV fluids with NS at 50 ml/hr. HD per Nephrology Monitor renal function Monitor electrolytes. Supplement as necessary. Nephrology recommendations appreciated. Continue bronchodilators Continue antibiotics. Follow up cultures Clinimix for nutritional support ABG reviewed, compensated CXR reviewed. Accu-Cheks, ISS Labs and imaging reviewed. Rest of plan as noted below Plan: s/p intubation on mechanical ventilator. Placed on PC mode due to high peak pressure Vent settings: PCV mode; respiratory rate 18; I-Pressure 20; I-time 0.8, PEEP 12, FiO2 65% Titrate FIO2 to keep O2 saturation above 90%. VAP bundle. Daily ABG and CXR while intubated Sedate for ventilator synchrony Patient underwent therapeutic bronchoscopy on 08/19/24 with clearing of mucous plugging. Aspirated coffee ground material removed from within the bilateral lungs. See separate procedure note for details. Continue bronchodilators. Continue antibiotics. Pressors as necessary for hemodynamic support Titrate to keep mean arterial pressure greater than 65 mmHg. Monitor hemoglobin Follow up GI recs IV fluids with NS Monitor renal function Monitor electrolytes. Supplement as necessary. Monitor ins and outs. Accu-Cheks, ISS GI prophylaxis - Protonix. DVT prophylaxis - Lovenox. Prognosis: Poor given patient's multiple co-morbidities. Condition: Critical Rest of plan per hospitalist and other consultants. A total of 35 minutes of critical care time was spent reviewing the patient record, examining the patient, making a diagnostic and therapeutic plan, discussing this plan with the medical personnel, following up on diagnostic studies and following the patient for clinical stability excluding any and all procedures. At least 50% of this time was spent in direct, [id number] contact. Thank you, DEON Morrison, for allowing me to participate in this patient's care. Further recommendations will depend on the patient's clinical course. Please do not hesitate to contact me if you have any questions or concerns. This medical document was created using an electronic medical record system with [employer] system. Although these documentations are being carefully reviewed, there may still be some phonetic and typographical changes. The errors are purely typographical, due to imperfection on the software program, and do not reflect any compromise in the patient's medical care. Dietary Evaluation Review Recommendations by RD: Protein Supplementation, PPN/TPN Comments: Pt is at high risk of malnutrition due to prolonged vomiting leading to inadequate nutrient intake and hypermetabolic state secondary to acute inflammation. Recommendation: 1) Start PN/TPN per pharmacy 2) If GI is accessible, consider TF Pivot 1.5Cal @ 60ml/hr along with Pro-stat 1 pk TID. Start @ 10ml/hr, increase 10ml/hr Q4H until goal rate is reached. Advance TF rate slowly and gradually to prevent Refeeding syndrome. Water Flush 50ml Q4H if allowed. TF Provision --- TF at goal volume to provide 1440 ml total volume, 2160 kcal (+300 kcal via Pro-stat = 2460 kcal), 135 gm pro (+45 gm via ProStat = 180 gm), 1093 ml H20 (meets 100% est. kcal needs, 100% est. protein needs) 3) Monitor Potassium, Phosphate, Magnesium for Refeeding syndrome 4) Des 1 pk daily For DTI 5) Continue current plan of care Expected Outcomes/Goals: Blood glucose to improve Nutrient intake to meet at least 75% estimated needs FU 2-3 days Food and Nutrition Intake (Mod: <75% est energy req 7days Plan discussed with: Other (MARYURI Mckay) Critical Care Time(min): 35 LINO CARRION MD Aug 22, 2024 23:29
[2024-08-23] VITALS (110 sets, daily range): BP systolic 74–144; BP diastolic 38–88; PULSE 86–109; RESP 2–27; TEMP 98.7–100.4; O2SAT 89–99
[2024-08-23 04:12] LABS: Hemoglobin 9.1 g/dL (13.5-17.5); Platelet Count (auto) 170 10^3/uL (140-450); Red Blood Cells 2.99 10^6/uL (4.5-5.90)
[2024-08-23 04:17] LABS: Hematocrit 26.7 % (41.0-53.0); Mean Corpuscular Hemoglobin 30.3 pg (28.0-32.0); Mean Corpuscular Volume 89.1 fL (80.0-100.0); Red Cell Distribution Width 14.2 % (11.8-14.3)
[2024-08-23 04:21] LABS: Alanine Aminotransferase 35 U/L (7-40); Anion Gap 13 (5-15); BUN/Creatinine Ratio 12.3 (10.0-20.0); Carbon Dioxide 25 mmol/L (20-31); Magnesium 2.6 mg/dL (1.6-2.6); Potassium 3.8 mmol/L (3.5-5.1)
[2024-08-23 04:22] LABS: Aspartate Aminotransferase 55 U/L (13-40); Phosphorus 4.8 mg/dL (2.4-5.1)
[2024-08-23 04:25] LABS: Bilirubin, Total < 0.2 mg/dL (0.2-1.0); Sodium 135 mmol/L (136-145)
[2024-08-23 04:26] LABS: Albumin 2.8 g/dL (3.2-4.8); Alkaline Phosphatase 181 U/L (46-116); Blood Urea Nitrogen 90 mg/dL (9-23); Calcium 8.4 mg/dL (8.7-10.4); Chloride 97 mmol/L (98-107); Glucose 153 mg/dL (74-106); Total Protein 5.1 g/dL (5.7-8.2)
[2024-08-23 04:38] LABS: White Blood Cell 46.6 10^3/uL (4.4-10.8)
[2024-08-23 04:39] LABS: Basophils % (manual) 0 (0.0-2.0); Metamyelocytes % 0; Myelocytes % 0; Promyelocytes % 0; Reactive Lymphocytes 0
[2024-08-23 05:36] LABS: Band Neutrophils % (manual) 10; Blast Cells 3; Eosinophils % (manual) 1 (0-7); Lymphocytes % (manual) 2 (10.0-50.0); Monocytes % (manual) 5 (0-12); Platelet Estimate Adequate
--- NOTE | 2024-08-23 05:46 | DVH ---
CHEST RADIOGRAPH Indication: aspiration pna Technique: Single frontal view of the chest was obtained Comparison: XY CHEST PORTABLE on DOS: 08/22/24, XY CHEST PORTABLE on DOS: 08/21/24, XY CHEST PORTABLE o n DOS: 08/20/24 IMPRESSION: Heart is stable in size. Endotracheal tube, enteric tube, and right IJ catheter appears stable in sa tisfactory position. Patchy bilateral alveolar airspace opacities have worsened. No sizable effusion or pneumothorax.
[2024-08-23 07:24] LABS: Base Excess -0.4 mmol/L (-2.0-3.0)
--- NOTE | 2024-08-23 11:01 | DVHPN2 ---
Reviewed: Care Plan, H&P, Labs, Medications, Previous Orders Changes from previous H/P or p: No Changes General: Per HPI; No Fatigue Eyes: No Pain, No Vision change, No Conjunctivae inflammation, No Eyelid inflammation, No Other, No Redness ENT: No Ear pain, No Ear discharge, No Nose pain, No Nose discharge, No Nose congestion, No Mouth pain, No Mouth swelling, No Throat pain, No Throat swelling, No Other Cardiovascular: No Chest Pain, No Palpitations, No Orthopnea, No Paroxysmal Noc. Dyspnea, No Edema, No Lt Headedness, No Other Respiratory: No Cough, No Dry, No Shortness of breath, No SOB with excertion, No Wheezing, No Hemoptysis, No Pleuritic Pain, No Sputum, No Other Gastrointestinal: Nausea, Vomiting; No Abdominal Pain, No Diarrhea; C onstipation; No Melena, No Hematochezia, No Other Genitourinary: No Dysuria, No Frequency, No Incontinence, No Hematuria, No Retention, No Other Musculoskeletal: No other, No neck pain, No shoulder pain, No arm pain, No back pain, No hand pain, No leg pain, No foot pain Skin: No Rash, No Lesions, No Jaundice, No Bruising, No Other Objective Vitals Vital Signs Date Time Temp Pulse Resp B/P (MAP) Pulse Ox O2 Delivery O2 Flow Rate FiO2 08/23/24 10:09 92 20 109/63 (78) 94 80 08/23/24 09:44 Mechanical Ventilator+ 08/23/24 08:00 99.7 99.7 Intake/Output Intake and Output 08/23/24 07:00 Intake Total 2410.946 ml Output Total 1050 ml Balance 1360.946 ml Intake Oral 100 ml IV Total 2220.946 ml Other 90 ml Output Urine Total 300 ml Gastric Drainage Total 750 ml General Appearance: Alert, Oriented X3, Cooperative, moderate distress, Other (Chemically sedated) HEENT: Atraumatic, PERRLA Lungs: Other (Bilateral rhonchi. Mechanical ventilation) Cardiovascular: Normal S1, Normal S2 Musculoskeletal: Normal sensory function, Normal motor function Neuro: Other (Unable to assess) Skin: Dry, Intact Psych/Mental Status: Other (Unable to assess) Medications Current Medications Medications Dose Ordered Sig/Nikki Route Start Time Stop Time Status Last Admin Dose Admin Ondansetron HCl 4 mg Q4HP PRN IV 08/19/24 13:30 Enoxaparin Sodium 30 mg DAILY SC 08/20/24 10:00 08/21/24 07:51 30 MG Nitroglycerin 0.4 mg Q5MINP PRN SL 08/19/24 13:30 Morphine Sulfate 2 mg Q30M PRN IV 08/19/24 13:30 Diagnostic Test (Pha) 1 strip ACHS 08/19/24 17:00 Cancel Vancomycin HCl 0 ml @ 0 mls/hr UD IV 08/19/24 16:00 Cefepime HCl 50 ml @ 12.5 mls/hr DAILY@2200 IV 08/19/24 22:00 08/22/24 22:00 12.5 MLS/HR Norepinephrine Bitartrate 250 ml @ 3.75 mls/hr Q24H IV 08/19/24 17:15 Cancel Midazolam HCl 50 ml @ 1 mls/hr Q24H IV 08/19/24 17:15 08/23/24 09:58 12 MLS/HR Fentanyl Citrate 250 ml @ 2.5 mls/hr Q24H IV 08/19/24 17:15 08/22/24 14:39 10 MLS/HR Ipratropium [place] 0.5 mg Q6HR NEB 08/19/24 18:00 08/23/24 06:44 0.5 MG Albuterol 2.5 mg Q6HR NEB 08/19/24 18:00 08/23/24 06:44 2.5 MG Diagnostic Test (Pha) 1 strip IQ4HR 08/19/24 20:00 08/23/24 07:37 1 STRIP Insulin Human Regular IQ4HR SC 08/19/24 20:00 08/23/24 07:47 2 UNITS Dextrose 50 ml UD PRN IV 08/19/24 19:15 Pantoprazole Sodium 40 mg BID IV 08/20/24 22:00 08/23/24 07:37 40 MG Bisacodyl [address] 08/20/24 11:15 Sodium Chloride 1,000 ml @ 50 mls/hr Q20H IV 08/20/24 20:00 08/22/24 21:00 50 MLS/HR Acetaminophen [address] 08/21/24 01:45 08/23/24 03:36 650 MG Sucralfate 1 gm QID@0600,1130,1700,2200 GT 08/21/24 11:30 08/23/24 09:58 1 GM Metoclopramide HCl 10 mg Q8HR GT 08/21/24 14:00 08/23/24 05:43 10 MG Lactulose 30 ml DAILY JT 08/21/24 11:00 08/23/24 07:37 30 ML Norepinephrine Bitartrate 32 mg/ Sodium Chloride 250 ml @ 0.938 mls/ hr Q24H IV 08/21/24 16:30 08/22/24 22:00 2.813 MLS/HR Amino Acids 0 ml @ 0 mls/hr PER PHARMACY IV 08/22/24 15:30 Amino Acids/ Electrolytes/ Dextrose 1,000 ml @ 41 mls/hr DAILY@2200 IV 08/22/24 22:00 08/22/24 22:08 41 MLS/HR Laboratory Results Laboratory Tests 08/23/24 03:48 Chemistry Test 08/23/24 03:48 Albumin 2.8 g/dL (3.2-4.8) L Calcium Level 8.4 mg/dL (8.7-10.4) L Magnesium Level 2.6 mg/dL (1.6-2.6) Phosphorus Level 4.8 mg/dL (2.4-5.1) Total Protein 5.1 g/dL (5.7-8.2) L LFT Test 08/23/24 03:48 Alanine Aminotransferase (ALT) 35 U/L (7-40) Alkaline Phosphatase 181 U/L (46-116) H Aspartate Amino Transferase (AST) 55 U/L (13-40) H Total Bilirubin < 0.2 mg/dL (0.2-1.0) L Urinalysis Test 08/19/24 11:25 Urine Color Colorless (Yellow) Urine Clarity Ex.turbid (Clear) Urine pH 6.5 (5.0-9.0) Urine Specific [place] 1.017 (1.001-1.035) Urine Protein 1+ (Negative) H Urine Ketones Negative (Negative) Urine Blood 1+ /uL (Negative) H Urine Nitrite Negative (Negative) Urine Bilirubin Negative (Negative) Urine Urobilinogen Normal mg/dL (Negative) Urine Leukocyte Esterase Trace /uL (Negative) Urine RBC 5 /hpf (0 - 3) Urine Microscopic WBC 16 /HPF (0-3) H Urine Squamous Epithelial Cells Few /hpf (<5) Urine Renal Epithelial Cells Few /hpf (None Seen) Urine Amorphous Crystals Few /hpf (None Seen) Urine Bacteria Few /hpf (None Seen) H Urine Mucus Few (None Seen) Urine Sperm Present /hpf (None Seen) Urine Creatinine 77.13 mg/dL (30.0-125.0) Urine Sodium 15 mmol/L (40-220) L Urine Glucose 3+ mg/dL (Normal) H Blood Gas Results Test 08/23/24 07:13 Arterial Blood pH 7.403 (7.350-7.450) FiO2 % 70.0 Microbiology Microbiology Date/Time Source Procedure Growth Status 08/20/24 22:05 Nose MRSA Screen - Final Complete 08/19/24 16:30 Sputum Gram Stain - Final Resulted 08/19/24 16:30 Respiratory Culture - Preliminary Presumptive Mary albicans Resulted 08/19/24 11:25 Voided Urine Urine Culture - Final Complete 08/19/24 11:00 Blood Blood Culture - Preliminary NO GROWTH AFTER 72 HOURS OF INCUBATION. Resulted Labs and/or images reviewed: Labs reviewed by me, Image(s) reviewed by me Assessment/Plan Assessment/Plan Impression: -acute hypoxic respiratory failure with mechanical ventilation -probable aspiration pneumonitis/pneumonia -sepsis with shock -obesity -rule out GI bleed -diabetes mellitus with severe hyperglycemia -hyponatremia -hypochloremia -hypokalemia -acute kidney injury,ATN 08/22/2024: pt to continue with vent management nephrology to evaluate for dialysis if needed 08/23/2024 daily vent weaning Plan discussed with: Other (nursing) My Orders Orders - RONN HYATT DO Procedure Category Date Status Time Clinimix Per Pharmacy ROHINI 08/22/24 In Process 12:08 Clinimix Per Pharmacy PHA 08/22/24 In Process 15:[address] [facility] 08/22/24 In Process In D10w (Clinimix 4. 22:00 Clinimix Per Pharmacy ROHINI 08/22/24 In Process 22:00 Apply Z-Guard [facility] 08/22/24 In Process 12:07 Date of Service: Aug 23, 2024 Billing Provider: RNON HYATT DO Common Visit Codes: [id number] CARE 30-74 MIN RONN HYATT DO Aug 23, 2024 11:01
--- NOTE | 2024-08-23 11:02 | CODING ---
Date of Service: Aug 22, 2024 Billing Provider: RONN HYATT DO Common Visit Codes: [id number] CARE 30-74 MIN RONN HYATT DO Aug 23, 2024 11:02
--- NOTE | 2024-08-23 12:48 | DVHPN2 ---
Progress Note - Dictate Date Seen: Aug 23, 2024 Medical Necessity Reason Pt with a Central, PICC or Fol: Yes The following are medically ne: Central Line, Chavez Catheter Reason for chavez catheter: Strict I&O Subjective Tolerated dialysis yesterday urine output remains oliguric vital signs Vital Sign Date Time Temp Pulse Resp B/P (MAP) Pulse Ox O2 Delivery O2 Flow Rate FiO2 08/23/24 11:59 88 20 93/54 (67) 94 80 08/23/24 11:45 Mechanical Ventilator+ 08/23/24 11:00 99.3 99.3 Total Intake and Output 08/22/24 08/22/24 08/23/24 15:00 23:00 07:00 Intake Total 610.688 ml 737.191 ml 1063.067 ml Output Total 450 ml 600 ml Balance 610.688 ml 287.191 ml 463.067 ml medications Current Medications Medications Dose Ordered Sig/Nikki Route Start Time Stop Time Status Last Admin Dose Admin Ondansetron HCl 4 mg Q4HP PRN IV 08/19/24 13:30 Enoxaparin Sodium 30 mg DAILY SC 08/20/24 10:00 08/21/24 07:51 30 MG Nitroglycerin 0.4 mg Q5MINP PRN SL 08/19/24 13:30 Morphine Sulfate 2 mg Q30M PRN IV 08/19/24 13:30 Diagnostic Test (Pha) 1 strip ACHS 08/19/24 17:00 Cancel Vancomycin HCl 0 ml @ 0 mls/hr UD IV 08/19/24 16:00 Cefepime HCl 50 ml @ 12.5 mls/hr DAILY@2200 IV 08/19/24 22:00 08/22/24 22:00 12.5 MLS/HR Norepinephrine Bitartrate 250 ml @ 3.75 mls/hr Q24H IV 08/19/24 17:15 Cancel Midazolam HCl 50 ml @ 1 mls/hr Q24H IV 08/19/24 17:15 08/23/24 09:58 12 MLS/HR Fentanyl Citrate 250 ml @ 2.5 mls/hr Q24H IV 08/19/24 17:15 08/22/24 14:39 10 MLS/HR Ipratropium [place] 0.5 mg Q6HR NEB 08/19/24 18:00 08/23/24 11:59 0.5 MG Albuterol 2.5 mg Q6HR NEB 08/19/24 18:00 08/23/24 11:59 2.5 MG Diagnostic Test (Pha) 1 strip IQ4HR 08/19/24 20:00 08/23/24 12:06 1 STRIP Insulin Human Regular IQ4HR SC 08/19/24 20:00 08/23/24 12:06 2 UNITS Dextrose 50 ml UD PRN IV 08/19/24 19:15 Pantoprazole Sodium 40 mg BID IV 08/20/24 22:00 08/23/24 07:37 40 MG Bisacodyl 10 mg DAILYP PRN DC 08/20/24 11:15 Sodium Chloride 1,000 ml @ 50 mls/hr Q20H IV 08/20/24 20:00 08/22/24 21:00 50 MLS/HR Acetaminophen 650 mg Q6HP PRN DC 08/21/24 01:45 08/23/24 03:36 650 MG Sucralfate 1 gm QID@0600,1130,1700,2200 GT 08/21/24 11:30 08/23/24 09:58 1 GM Metoclopramide HCl 10 mg Q8HR GT 08/21/24 14:00 08/23/24 05:43 10 MG Lactulose 30 ml DAILY JT 08/21/24 11:00 08/23/24 07:37 30 ML Norepinephrine Bitartrate 32 mg/ Sodium Chloride 250 ml @ 0.938 mls/ hr Q24H IV 08/21/24 16:30 08/22/24 22:00 2.813 MLS/HR Amino Acids 0 ml @ 0 mls/hr PER PHARMACY IV 08/22/24 15:30 Amino Acids/ Electrolytes/ Dextrose 1,000 ml @ 41 mls/hr DAILY@2200 IV 08/22/24 22:00 08/22/24 22:08 41 MLS/HR objective gen: intubated and sedated lungs: distant breath sounds cvs: no rub laboratory and microbiology Laboratory Tests 08/23/24 03:48 Test 08/23/24 03:48 Range/Units Serum Glucose 153 H 74-106 mg/dL Assessment/Plan Acute kidney injury, possible ischemic ATN CKD unspecified baseline unknown hx BPH Septic shock Cardiac arrest Acute respiratory failure Hypernatremia Urinary tract infection - repeat dialysis today for additional solute removal, volume removal as tolerated - no heparin with dialysis Dietary Evaluation Review Recommendations by RD: Protein Supplementation, PPN/TPN Comments: Pt is at high risk of malnutrition due to prolonged vomiting leading to inadequate nutrient intake and hypermetabolic state secondary to acute inflammation. Recommendation: 1) Start PN/TPN per pharmacy 2) If GI is accessible, consider TF Pivot 1.5Cal @ 60ml/hr along with Pro-stat 1 pk TID. Start @ 10ml/hr, increase 10ml/hr Q4H until goal rate is reached. Advance TF rate slowly and gradually to prevent Refeeding syndrome. Water Flush 50ml Q4H if allowed. TF Provision --- TF at goal volume to provide 1440 ml total volume, 2160 kcal (+300 kcal via Pro-stat = 2460 kcal), 135 gm pro (+45 gm via ProStat = 180 gm), 1093 ml H20 (meets 100% est. kcal needs, 100% est. protein needs) 3) Monitor Potassium, Phosphate, Magnesium for Refeeding syndrome 4) Des 1 pk daily For DTI 5) Continue current plan of care Expected Outcomes/Goals: Blood glucose to improve Nutrient intake to meet at least 75% estimated needs FU 2-3 days Food and Nutrition Intake (Mod: <75% est energy req 7days Plan discussed with: GERARDO Holguin MD Aug 23, 2024 12:48
[2024-08-23] MEDS: HEPARIN 1,000 UNITS/ml 1ML VIAL IV ONE (14:25)
--- NOTE | 2024-08-23 23:07 | DVHNC2 ---
Procedure - Bronchoscopy procedure note: Indications: Copious endotracheal tube secretions, Possible mucous plugging. Medicines: See FRONT OFFICE SECRETARY notes. Complications: None Procedure: Patient medications and allergies reviewed. The risks and benefits of the procedure and the sedation options and risk were discussed with the patient's healthcare proxy. All questions were answered and informed consent was obtained. Patient identification and proposed procedure were verified prior to the procedure by the physician, and a nurse, and the respiratory therapist in ICU room. The heart rate, respiratory rate, oxygen saturations, blood pressure, adequacy of pulmonary ventilation, and response to care were monitored throughout the procedure. The physical status of the patient was reassessed after the procedure. After obtaining informed consent, the bronchoscope was introduced through the endotracheal tube and advanced into the trachea bronchial tree of both lungs. The procedure was accomplished without difficulty. The patient tolerated the procedure well. Findings: The trachea is in normal caliber. The jasbir is sharp. The tracheobronchial tree of the right lung was examined to at least the first subsegmental level. The bronchial mucosa and anatomy in the right lung are normal. There are no endobronchial lesions. There was copious whitish secretions from right main stem bronchus onward throughout R1-R10. Right middle lobe (RML) Bronchoalveolar lavage (BAL) obtained. RML BAL sent for gram stain and culture and fungal culture.. The left upper lobe, lingula, and left lower lobe were examined to at least the first subsegmental level. Bronchial mucosa and anatomy in the left upper lobe and lingula are normal. There were no endobronchial lesions. There was copious whitish secretions from left main stem bronchus onward throughout L1-L10. Mucous plugging removed from L1-L10. There was no active bleeding at the completion of the procedure. Estimated blood loss: Less than 5 mL. Impression: Left and right lower lobe atelectasis due to mucous plugging Mucous plugging from L1-L10 and R1-R10 RML BAL performed Recommendation: Follow-up RML BAL results. Procedure codes: 64399, bronchoscopy, rigid and flexible, including fluoroscopic guidance, one performed; with bronchial endobronchial broncho-alveolar lavage, single or multiple sites LINO CARRION MD Aug 23, 2024 23:06
--- NOTE | 2024-08-23 23:38 | DVHPN2 ---
Progress Note - Dictate Date Seen: Aug 23, 2024 Medical Necessity Reason Pt with a Central, PICC or Fol: Yes The following are medically ne: Central Line, Chavez Catheter Reason for chavez catheter: Strict I&O Subjective Patient seen and examined at bedside. Sedated, intubated on mechanical ventilator. Overnight events reviewed. vital signs Vital Sign Date Time Temp Pulse Resp B/P (MAP) Pulse Ox O2 Delivery O2 Flow Rate FiO2 08/23/24 22:55 101 18 144/88 (106) 99 80 08/23/24 22:45 99.7 99.7 08/23/24 20:00 Mechanical Ventilator+ Total Intake and Output 08/22/24 08/22/24 08/23/24 15:00 23:00 07:00 Intake Total 610.688 ml 737.191 ml 1063.067 ml Output Total 450 ml 600 ml Balance 610.688 ml 287.191 ml 463.067 ml medications Current Medications Medications Dose Ordered Sig/Nikki Route Start Time Stop Time Status Last Admin Dose Admin Ondansetron HCl 4 mg Q4HP PRN IV 08/19/24 13:30 Enoxaparin Sodium 30 mg DAILY SC 08/20/24 10:00 08/21/24 07:51 30 MG Nitroglycerin 0.4 mg Q5MINP PRN SL 08/19/24 13:30 Morphine Sulfate 2 mg Q30M PRN IV 08/19/24 13:30 Diagnostic Test (Pha) 1 strip ACHS 08/19/24 17:00 Cancel Vancomycin HCl 0 ml @ 0 mls/hr UD IV 08/19/24 16:00 Cefepime HCl 50 ml @ 12.5 mls/hr DAILY@2200 IV 08/19/24 22:00 08/23/24 22:35 12.5 MLS/HR Norepinephrine Bitartrate 250 ml @ 3.75 mls/hr Q24H IV 08/19/24 17:15 Cancel Midazolam HCl 50 ml @ 1 mls/hr Q24H IV 08/19/24 17:15 08/23/24 19:46 10 MLS/HR Fentanyl Citrate 250 ml @ 2.5 mls/hr Q24H IV 08/19/24 17:15 08/23/24 14:18 10 MLS/HR Ipratropium [place] 0.5 mg Q6HR NEB 08/19/24 18:00 08/23/24 18:36 0.5 MG Albuterol 2.5 mg Q6HR NEB 08/19/24 18:00 08/23/24 18:36 2.5 MG Diagnostic Test (Pha) 1 strip IQ4HR 08/19/24 20:00 08/23/24 20:00 1 STRIP Insulin Human Regular IQ4HR SC 08/19/24 20:00 08/23/24 19:54 4 UNITS Dextrose 50 ml UD PRN IV 08/19/24 19:15 Pantoprazole Sodium 40 mg BID IV 08/20/24 22:00 08/23/24 22:34 40 MG Bisacodyl 10 mg DAILYP PRN LA 08/20/24 11:15 Acetaminophen 650 mg Q6HP PRN LA 08/21/24 01:45 08/23/24 03:36 650 MG Sucralfate 1 gm QID@0600,1130,1700,2200 GT 08/21/24 11:30 08/23/24 22:34 1 GM Metoclopramide HCl 10 mg Q8HR GT 08/21/24 14:00 08/23/24 22:34 10 MG Lactulose 30 ml DAILY JT 08/21/24 11:00 08/23/24 07:37 30 ML Norepinephrine Bitartrate 32 mg/ Sodium Chloride 250 ml @ 0.938 mls/ hr Q24H IV 08/21/24 16:30 08/22/24 22:00 2.813 MLS/HR Amino Acids 0 ml @ 0 mls/hr PER PHARMACY IV 08/22/24 15:30 Amino Acids/ Electrolytes/ Dextrose 1,000 ml @ 41 mls/hr DAILY@2200 IV 08/22/24 22:00 08/23/24 21:08 41 MLS/HR objective Gen.: Patient lying in bed in medical ICU. Sedated, intubated on mechanical ventilator. Head: Normocephalic, atraumatic. Eyes: PERRLA. Ears: Normal external anatomy. Throat: Endotracheal tube and orogastric tube in place. Neck: Supple, trachea midline. Chest: Transmitted breath sounds bilaterally. Decreased air entry bilaterally. No wheezing. Bibasilar crackles. Cardiovascular: Positive S1, positive S2. Regular rate and rhythm. Abdomen: Positive bowel sounds in all 4 quadrants. Soft, nontender, nondistended. : Chavez in place. Normal external genitalia. Rectal: Deferred. Skin: Warm, dry. Intact. Extremities: 2+ radial pulses bilaterally. No lower extremity edema. Neuro: Sedated laboratory and microbiology Laboratory Tests 08/23/24 03:48 Test 08/23/24 03:48 Range/Units Serum Glucose 153 H 74-106 mg/dL Assessment/Plan Impression: Acute hypoxic respiratory failure On mechanical ventilator Gastrointestinal hemorrhage, upper Aspiration pneumonia MAGDALENA mucous plug Obesity BMI 35.9 Events: Remains on vent support Vent settings: PCV mode; respiratory rate 18; I-Pressure 20; I-time 0.8, PEEP 12, FiO2 80% Sedated on Versed, Fentanyl Pressors for hemodynamic support On Levophed 10 mcg/min Titrate to keep mean arterial pressure greater than 65 mmHg. Increased ET tube secretions Plan for bronchoscopy with BAL for clearing of secretions Remains on high PEEP. NGT with coffee-ground material Monitor hemoglobin IV fluids with NS at 50 ml/hr. HD per Nephrology Monitor renal function Monitor electrolytes. Supplement as necessary. Nephrology recommendations appreciated. Continue bronchodilators Continue antibiotics. Follow up cultures Clinimix for nutritional support ABG reviewed, compensated CXR reviewed. Accu-Cheks, ISS Labs and imaging reviewed. Rest of plan as noted below Plan: s/p intubation on mechanical ventilator. Placed on PC mode due to high peak pressure Vent settings: PCV mode; respiratory rate 18; I-Pressure 20; I-time 0.8, PEEP 12, FiO2 80% Titrate FIO2 to keep O2 saturation above 90%. VAP bundle. Daily ABG and CXR while intubated Sedate for ventilator synchrony Patient underwent therapeutic bronchoscopy on 08/19/24 with clearing of mucous plugging. Aspirated coffee ground material removed from within the bilateral lungs. See separate procedure note for details. Continue bronchodilators. Continue antibiotics. Pressors as necessary for hemodynamic support Titrate to keep mean arterial pressure greater than 65 mmHg. Monitor hemoglobin Follow up GI recs IV fluids with NS Monitor renal function Monitor electrolytes. Supplement as necessary. Monitor ins and outs. Accu-Cheks, ISS GI prophylaxis - Protonix. DVT prophylaxis - Lovenox. Prognosis: Poor given patient's multiple co-morbidities. Condition: Critical Rest of plan per hospitalist and other consultants. A total of 35 minutes of critical care time was spent reviewing the patient record, examining the patient, making a diagnostic and therapeutic plan, discussing this plan with the medical personnel, following up on diagnostic studies and following the patient for clinical stability excluding any and all procedures. At least 50% of this time was spent in direct, [id number] contact. Thank you, DEON Morrison, for allowing me to participate in this patient's care. Further recommendations will depend on the patient's clinical course. Please do not hesitate to contact me if you have any questions or concerns. This medical document was created using an electronic medical record system with [employer] dictation system. Although these documentations are being carefully reviewed, there may still be some phonetic and typographical changes. The errors are purely typographical, due to imperfection on the software program, and do not reflect any compromise in the patient's medical care. Dietary Evaluation Review Recommendations by RD: Protein Supplementation, PPN/TPN Comments: Pt is at high risk of malnutrition due to prolonged vomiting leading to inadequate nutrient intake and hypermetabolic state secondary to acute inflammation. Recommendation: 1) Start PN/TPN per pharmacy 2) If GI is accessible, consider TF Pivot 1.5Cal @ 60ml/hr along with Pro-stat 1 pk TID. Start @ 10ml/hr, increase 10ml/hr Q4H until goal rate is reached. Advance TF rate slowly and gradually to prevent Refeeding syndrome. Water Flush 50ml Q4H if allowed. TF Provision --- TF at goal volume to provide 1440 ml total volume, 2160 kcal (+300 kcal via Pro-stat = 2460 kcal), 135 gm pro (+45 gm via ProStat = 180 gm), 1093 ml H20 (meets 100% est. kcal needs, 100% est. protein needs) 3) Monitor Potassium, Phosphate, Magnesium for Refeeding syndrome 4) Des 1 pk daily For DTI 5) Continue current plan of care Expected Outcomes/Goals: Blood glucose to improve Nutrient intake to meet at least 75% estimated needs FU 2-3 days Food and Nutrition Intake (Mod: <75% est energy req 7days Plan discussed with: Other (MARYURI Grijalva) Critical Care Time(min): 35 LINO CARRION MD Aug 23, 2024 23:38
[2024-08-24] VITALS (108 sets, daily range): BP systolic 85–140; BP diastolic 40–75; PULSE 85–106; RESP 10–25; TEMP 97.9–99.7; O2SAT 91–99
[2024-08-24 03:49] LABS: Hemoglobin 8.4 g/dL (13.5-17.5); Mean Corpuscular Hemoglobin 29.9 pg (28.0-32.0)
[2024-08-24 03:52] LABS: Hematocrit 25.5 % (41.0-53.0); Mean Corpuscular Hgb Conc. 32.9 g/dL (32.0-36.0); Mean Corpuscular Volume 90.7 fL (80.0-100.0); Platelet Count (auto) 169 10^3/uL (140-450); Red Blood Cells 2.81 10^6/uL (4.5-5.90); Red Cell Distribution Width 14.3 % (11.8-14.3)
[2024-08-24 04:07] LABS: Alanine Aminotransferase 29 U/L (7-40); Albumin 2.9 g/dL (3.2-4.8); Alkaline Phosphatase 255 U/L (46-116); Anion Gap 10 (5-15); Aspartate Aminotransferase 45 U/L (13-40); BUN/Creatinine Ratio 12.4 (10.0-20.0); Blood Urea Nitrogen 74 mg/dL (9-23); Calcium 8.4 mg/dL (8.7-10.4); Carbon Dioxide 27 mmol/L (20-31); Chloride 98 mmol/L (98-107); Glucose 172 mg/dL (74-106); Magnesium 2.4 mg/dL (1.6-2.6); Potassium 3.7 mmol/L (3.5-5.1); Sodium 135 mmol/L (136-145); Total Protein 5.4 g/dL (5.7-8.2); Triglycerides 343 mg/dL (< 150)
[2024-08-24 04:09] LABS: Bilirubin, Total 0.2 mg/dL (0.2-1.0)
[2024-08-24 04:29] LABS: White Blood Cell 43.9 10^3/uL (4.4-10.8)
[2024-08-24 04:30] LABS: Basophils % (manual) 0 (0.0-2.0); Myelocytes % 0; Promyelocytes % 0; Reactive Lymphocytes 0
--- NOTE | 2024-08-24 05:01 | DVH ---
CHEST RADIOGRAPH Indication: POST BRONCH ON AN INTUBATED PATIENT Technique: Single frontal view of the chest was obtained COMPARISON: XY CHEST PORTABLE on DOS: 08/23/24, XY CHEST PORTABLE on DOS: 08/22/24, XY CHEST PORTABLE o n DOS: 08/21/24, XY CHEST PORTABLE on DOS: 08/20/24, XY CHEST XRAY 1 VIEW on DOS: 08/19/24 FINDINGS: Lines and Tubes: Endotracheal tube and enteric catheter in satisfactory position. Right central veno us catheter in satisfactory position. Lungs: Severe multifocal airspace disease Pleura: No effusion. No pneumothorax. Cardiomediastinal contours: Unremarkable Bones: Unremarkable IMPRESSION: Lines and tubes in satisfactory position. No significant interval change.
[2024-08-24 06:36] LABS: Eosinophils % (manual) 3 (0-7); Metamyelocytes % 1; Monocytes % (manual) 8 (0-12); Platelet Estimate Adequate
[2024-08-24 08:01] LABS: Base Excess -0.3 mmol/L (-2.0-3.0)
[2024-08-24] MEDS ORDERED: Nepro With Carb Steady 1 Liter Bottle GT SCH (09:00)
[2024-08-24] MEDS ORDERED: TPN PER PHARMACY 0 ML IV SCH (09:00)
--- NOTE | 2024-08-24 09:11 | DVHPN2 ---
Subjective Patient is intubated and sedated Reviewed: Care Plan, H&P, Labs, Medications, Previous Orders Changes from previous H/P or p: No Changes General: Per HPI; No Fatigue Eyes: No Pain, No Vision change, No Conjunctivae inflammation, No Eyelid inflammation, No Other, No Redness ENT: No Ear pain, No Ear discharge, No Nose pain, No Nose discharge, No Nose congestion, No Mouth pain, No Mouth swelling, No Throat pain, No Throat swelling, No Other Cardiovascular: No Chest Pain, No Palpitations, No Orthopnea, No Paroxysmal Noc. Dyspnea, No Edema, No Lt Headedness, No Other Respiratory: No Cough, No Dry, No Shortness of breath, No SOB with excertion, No Wheezing, No Hemoptysis, No Pleuritic Pain, No Sputum, No Other Gastrointestinal: Nausea, Vomiting; No Abdominal Pain, No Diarrhea; C onstipation; No Melena, No Hematochezia, No Other Genitourinary: No Dysuria, No Frequency, No Incontinence, No Hematuria, No Retention, No Other Musculoskeletal: No other, No neck pain, No shoulder pain, No arm pain, No back pain, No hand pain, No leg pain, No foot pain Skin: No Rash, No Lesions, No Jaundice, No Bruising, No Other Objective Vitals Vital Signs Date Time Temp Pulse Resp B/P (MAP) Pulse Ox O2 Delivery O2 Flow Rate FiO2 08/24/24 08:15 102 16 125/64 (84) 96 08/24/24 08:07 70 08/24/24 08:00 Mechanical Ventilator+ 08/24/24 06:00 99.3 99.3 Intake/Output Intake and Output 08/24/24 07:00 Intake Total 2123.320 ml Output Total 1038 ml Balance 1085.320 ml Intake Oral 100 ml IV Total 2023.320 ml Output Urine Total 188 ml Gastric Drainage Total 850 ml General Appearance: Alert, Oriented X3, Cooperative, moderate distress, Other (Chemically sedated) HEENT: Atraumatic, PERRLA Lungs: Other (Bilateral rhonchi. Mechanical ventilation) Cardiovascular: Normal S1, Normal S2 Musculoskeletal: Normal sensory function, Normal motor function Neuro: Other (Unable to assess) Skin: Dry, Intact Psych/Mental Status: Other (Unable to assess) Medications Current Medications Medications Dose Ordered Sig/Nikki Route Start Time Stop Time Status Last Admin Dose Admin Ondansetron HCl 4 mg Q4HP PRN IV 08/19/24 13:30 Enoxaparin Sodium 30 mg DAILY SC 08/20/24 10:00 08/21/24 07:51 30 MG Nitroglycerin 0.4 mg Q5MINP PRN SL 08/19/24 13:30 Morphine Sulfate 2 mg Q30M PRN IV 08/19/24 13:30 Diagnostic Test (Pha) 1 strip ACHS 08/19/24 17:00 Cancel Vancomycin HCl 0 ml @ 0 mls/hr UD IV 08/19/24 16:00 Cefepime HCl 50 ml @ 12.5 mls/hr DAILY@2200 IV 08/19/24 22:00 08/23/24 22:35 12.5 MLS/HR Norepinephrine Bitartrate 250 ml @ 3.75 mls/hr Q24H IV 08/19/24 17:15 Cancel Midazolam HCl 50 ml @ 1 mls/hr Q24H IV 08/19/24 17:15 08/24/24 05:39 10 MLS/HR Fentanyl Citrate 250 ml @ 2.5 mls/hr Q24H IV 08/19/24 17:15 08/24/24 05:33 15 MLS/HR Ipratropium [place] 0.5 mg Q6HR NEB 08/19/24 18:00 08/24/24 07:02 0.5 MG Albuterol 2.5 mg Q6HR NEB 08/19/24 18:00 08/24/24 07:02 2.5 MG Diagnostic Test (Pha) 1 strip IQ4HR 08/19/24 20:00 08/24/24 07:40 1 STRIP Insulin Human Regular IQ4HR SC 08/19/24 20:00 08/24/24 07:47 2 UNITS Dextrose 50 ml UD PRN IV 08/19/24 19:15 Pantoprazole Sodium 40 mg BID IV 08/20/24 22:00 08/24/24 07:40 40 MG Bisacodyl 10 mg DAILYP PRN CA 08/20/24 11:15 Acetaminophen 650 mg Q6HP PRN CA 08/21/24 01:45 08/23/24 03:36 650 MG Sucralfate 1 gm QID@0600,1130,1700,2200 GT 08/21/24 11:30 08/24/24 05:42 1 GM Metoclopramide HCl 10 mg Q8HR GT 08/21/24 14:00 08/24/24 05:42 10 MG Lactulose 30 ml DAILY JT 08/21/24 11:00 08/24/24 07:40 30 ML Norepinephrine Bitartrate 32 mg/ Sodium Chloride 250 ml @ 0.938 mls/ hr Q24H IV 08/21/24 16:30 08/24/24 05:33 2.813 MLS/HR Amino Acids/ Electrolytes/ Dextrose 1,000 ml @ 41 mls/hr DAILY@2200 IV 08/22/24 22:00 08/23/24 21:08 41 MLS/HR Fluconazole 100 ml @ 100 mls/hr DAILY IV 08/24/24 10:00 UNV Enteral Nutritional Formula 1,000 ml 30ML/HR GT 08/24/24 09:00 UNV Amino Acids 0 ml @ 0 mls/hr PER PHARMACY IV 08/24/24 09:00 UNV Sucralfate 1 gm TID@0600,1130,2200 GT 08/24/24 11:30 UNV Laboratory Results Laboratory Tests 08/24/24 03:17 Chemistry Test 08/24/24 03:17 Albumin 2.9 g/dL (3.2-4.8) L Calcium Level 8.4 mg/dL (8.7-10.4) L Magnesium Level 2.4 mg/dL (1.6-2.6) Phosphorus Level 4.0 mg/dL (2.4-5.1) Total Protein 5.4 g/dL (5.7-8.2) L Lipid panel Test 08/24/24 03:17 Triglycerides Level 343 mg/dL (< 150) H LFT Test 08/24/24 03:17 Alanine Aminotransferase (ALT) 29 U/L (7-40) Alkaline Phosphatase 255 U/L (46-116) H Aspartate Amino Transferase (AST) 45 U/L (13-40) H Total Bilirubin 0.2 mg/dL (0.2-1.0) Urinalysis Test 08/19/24 11:25 Urine Color Colorless (Yellow) Urine Clarity Ex.turbid (Clear) Urine pH 6.5 (5.0-9.0) Urine Specific [place] 1.017 (1.001-1.035) Urine Protein 1+ (Negative) H Urine Ketones Negative (Negative) Urine Blood 1+ /uL (Negative) H Urine Nitrite Negative (Negative) Urine Bilirubin Negative (Negative) Urine Urobilinogen Normal mg/dL (Negative) Urine Leukocyte Esterase Trace /uL (Negative) Urine RBC 5 /hpf (0 - 3) Urine Microscopic WBC 16 /HPF (0-3) H Urine Squamous Epithelial Cells Few /hpf (<5) Urine Renal Epithelial Cells Few /hpf (None Seen) Urine Amorphous Crystals Few /hpf (None Seen) Urine Bacteria Few /hpf (None Seen) H Urine Mucus Few (None Seen) Urine Sperm Present /hpf (None Seen) Urine Creatinine 77.13 mg/dL (30.0-125.0) Urine Sodium 15 mmol/L (40-220) L Urine Glucose 3+ mg/dL (Normal) H Blood Gas Results Test 08/24/24 07:52 Arterial Blood pH 7.443 (7.350-7.450) FiO2 % 70.0 Microbiology Microbiology Date/Time Source Procedure Growth Status 08/20/24 22:05 Nose MRSA Screen - Final Complete 08/19/24 16:30 Sputum Gram Stain - Final Complete 08/19/24 16:30 Respiratory Culture - Final Presumptive Mary albicans Complete 08/19/24 11:25 Voided Urine Urine Culture - Final Complete 08/19/24 11:00 Blood Blood Culture - Preliminary NO GROWTH AFTER 72 HOURS OF INCUBATION. Resulted Labs and/or images reviewed: Labs reviewed by me, Image(s) reviewed by me Assessment/Plan Assessment/Plan Impression: -acute hypoxic respiratory failure with mechanical ventilation -probable aspiration pneumonitis/pneumonia -sepsis with shock -obesity -rule out GI bleed -diabetes mellitus with severe hyperglycemia -hyponatremia -hypochloremia -hypokalemia -acute kidney injury, vasomotor nephropathy Plan: -events: -Vent settings: PC 20/12, 70% -Change abx: Meropenem, Diflucan -nephrology consultation: Recommendations reviewed -echocardiogram with ejection fraction around/less than 40% -NG to low intermittent suction -Start TPN -continue Protonix 40 mg IV twice a day, add Carafate 1 g q.i.d. -RISS -repeat labs, chest x-ray, ABG in a.m. -GI consultation recommendations reviewed. Critical care time spent with patient discussing and formulating plan of care: 90 minutes. This does not include time spent performing procedures. This medical document was created using an electronic medical record system with [employer] dictation system. Although this document has been carefully reviewed, there may still be some phonetic and typographical errors. These areas are purely typographical due to imperfections of the software programs, and do not reflect any compromise in the patient's medical care. Plan discussed with: Patient, Other (RN) My Orders Orders - LION ORELLANA NP Procedure Category Date Status Time Abg W/ Co-Ox RT 08/24/24 Logged 07:00 Fluconazole PHA 08/24/24 Logged 200mg/100ml (Diflucan 10:00 Basic Metabolic Panel LAB 08/25/24 Verified 05:00 Basic Metabolic Panel LAB 08/26/24 Verified 05:00 Basic Metabolic Panel LAB 08/27/24 Verified 05:00 Chest Portable XY 08/25/24 Logged 05:00 Chest Portable XY 08/26/24 Logged 05:00 Chest Portable XY 08/27/24 Logged 05:00 Abg W/ Co-Ox RT 08/25/24 Logged 05:00 Abg W/ Co-Ox RT 08/26/24 Logged 05:00 Abg W/ Co-Ox RT 08/27/24 Logged 05:00 Tpn Per Pharmacy PHA 08/24/24 Logged 09:00 Sucralfate Susp PHA 08/24/24 Logged (Carafate Susp) 11:30 Meropenem 500mg Ivpb PHA 08/24/24 Logged (Merrem 500mg/Ns) 10:00 Date of Service: Aug 24, 2024 Billing Provider: LION ORELLANA NP Common Visit Codes: [id number] CARE 30-74 MIN LION ORELLANA NP Aug 24, 2024 09:11
[2024-08-24] MEDS: MEROPENEM 500MG IVPB 50 ML IV SCH (10:06)
[2024-08-24] MEDS: FLUCONAZOLE 200MG/100ML 100 ML IV SCH (10:06)
[2024-08-24 11:21] LABS: Band Neutrophils % (manual) 0; Lymphocytes % (manual) 4 (10.0-50.0)
[2024-08-24 11:22] LABS: Blast Cells 1
[2024-08-24] MEDS ORDERED: SUCRALFATE 1 GM/10 ML ORAL SUSP GT SCH (11:30)
--- NOTE | 2024-08-24 13:44 | DVHPN2 ---
Progress Note Date Seen: Aug 24, 2024 Medical Necessity Reason Pt with a Central, PICC or Fol: Yes The following are medically ne: Central Line, Chavez Catheter Reason for chavez catheter: Strict I&O Subjective Patient reports: Other Review of Systems: Deferred (still intubated, still has gastric secretions) Objective vital signs Vital Sign Date Time Temp Pulse Resp B/P (MAP) Pulse Ox O2 Delivery O2 Flow Rate FiO2 08/24/24 13:31 18 95 Mechanical Ventilator+ 70 70 08/24/24 13:31 89 08/24/24 13:30 87/47 (60) 08/24/24 11:30 99.0 99.0 Total Intake and Output 08/23/24 08/23/24 08/24/24 15:00 23:00 07:00 Intake Total 850.191 ml 681.251 ml 591.878 ml Output Total 650 ml 388 ml Balance 850.191 ml 31.251 ml 203.878 ml medications Current Medications Medications Dose Ordered Sig/Nikki Route Start Time Stop Time Status Last Admin Dose Admin Ondansetron HCl 4 mg Q4HP PRN IV 08/19/24 13:30 Enoxaparin Sodium 30 mg DAILY SC 08/20/24 10:00 08/21/24 07:51 30 MG Nitroglycerin 0.4 mg Q5MINP PRN SL 08/19/24 13:30 Morphine Sulfate 2 mg Q30M PRN IV 08/19/24 13:30 Diagnostic Test (Pha) 1 strip ACHS 08/19/24 17:00 Cancel Norepinephrine Bitartrate 250 ml @ 3.75 mls/hr Q24H IV 08/19/24 17:15 Cancel Midazolam HCl 50 ml @ 1 mls/hr Q24H IV 08/19/24 17:15 08/24/24 10:06 10 MLS/HR Fentanyl Citrate 250 ml @ 2.5 mls/hr Q24H IV 08/19/24 17:15 08/24/24 05:33 15 MLS/HR Ipratropium [place] 0.5 mg Q6HR NEB 08/19/24 18:00 08/24/24 12:06 0.5 MG Albuterol 2.5 mg Q6HR NEB 08/19/24 18:00 08/24/24 12:06 2.5 MG Diagnostic Test (Pha) 1 strip IQ4HR 08/19/24 20:00 08/24/24 11:43 1 STRIP Insulin Human Regular IQ4HR SC 08/19/24 20:00 08/24/24 11:52 2 UNITS Dextrose 50 ml UD PRN IV 08/19/24 19:15 Pantoprazole Sodium 40 mg BID IV 08/20/24 22:00 08/24/24 07:40 40 MG Bisacodyl 10 mg DAILYP PRN LA 08/20/24 11:15 Acetaminophen 650 mg Q6HP PRN LA 08/21/24 01:45 08/23/24 03:36 650 MG Sucralfate 1 gm QID@0600,1130,1700,2200 GT 08/21/24 11:30 08/24/24 05:42 1 GM Metoclopramide HCl 10 mg Q8HR GT 08/21/24 14:00 08/24/24 11:57 10 MG Lactulose 30 ml DAILY JT 08/21/24 11:00 08/24/24 07:40 30 ML Norepinephrine Bitartrate 32 mg/ Sodium Chloride 250 ml @ 0.938 mls/ hr Q24H IV 08/21/24 16:30 08/24/24 05:33 2.813 MLS/HR Amino Acids/ Electrolytes/ Dextrose 1,000 ml @ 41 mls/hr DAILY@2200 IV 08/22/24 22:00 08/24/24 21:59 08/23/24 21:08 41 MLS/HR Fluconazole 100 ml @ 100 mls/hr DAILY IV 08/24/24 10:00 08/24/24 10:06 100 MLS/HR Amino Acids 0 ml @ 0 mls/hr PER PHARMACY IV 08/24/24 09:00 Meropenem 50 ml @ 17 mls/hr DAILY IV 08/24/24 10:00 08/24/24 10:06 17 MLS/HR Sodium Chloride 60 meq/Potassium Chloride 40 meq/ Magnesium Sulfate 4 meq/ Multivitamins 10 ml/Chromium/ Copper/Manganese/ Zinc 1 ml/Insulin Human Regular 8 units/Amino Acids/ Dextrose 1,647.08 ml @ 69 mls/hr [id number] IV 08/24/24 22:00 08/25/24 21:59 Examination: GENERAL:Abnormal, LUNGS:Abnormal, ABDOMEN:Abnormal, SKIN:Abnormal laboratory and microbiology Laboratory Tests 08/24/24 03:17 Test 08/24/24 03:17 Range/Units Serum Glucose 172 H 74-106 mg/dL Microbiology Date/Time Source Procedure Growth Status 08/20/24 22:05 Nose MRSA Screen - Final Complete 08/19/24 16:30 Sputum Gram Stain - Final Complete 08/19/24 16:30 Respiratory Culture - Final Presumptive Mary albicans Complete 08/19/24 11:25 Voided Urine Urine Culture - Final Complete 08/19/24 11:00 Blood Blood Culture - Final NO GROWTH AFTER 5 DAYS OF INCUBATION. Complete Problem List/Assessment/Plan Problem List/Assessment/Plan Acute kidney injury in the setting of hypotension and volume depletion -> ATN early signs Metabolic alkalosis in the setting of vomiting-> chloride depletion Hypokalemia Severe hyperglycemia Hyponatremia in the setting of hyperglycemia hyperosmolar state Uncontrolled diabetes acute respiratory failure due to aspiration pneumonia? clinically hypervolemic UOP minimal diuretics IV today continue HD next treatment tomorrow still has high O2 requirements today FIO2 70% PEEP 12 Pressors to maintain mean arterial pressure greater than 65 Continue with I&O in urinary output monitoring Patient is critically ill critical care time spent 70 minutes Guarded prognosis Plan discussed with: Other My Orders My Orders Orders - MERLIN ROBLES MD Procedure Category Date Status Time Bumetanide Injection PHA 08/24/24 Transmitted (Bumex Injection) 13:45 Dietary Evaluation Review Recommendations by RD: Protein Supplementation, PPN/TPN Comments: Pt is at high risk of malnutrition due to prolonged vomiting leading to inadequate nutrient intake and hypermetabolic state secondary to acute inflammation. Recommendation: 1) Start PN/TPN per pharmacy 2) If GI is accessible, consider TF Pivot 1.5Cal @ 60ml/hr along with Pro-stat 1 pk TID. Start @ 10ml/hr, increase 10ml/hr Q4H until goal rate is reached. Advance TF rate slowly and gradually to prevent Refeeding syndrome. Water Flush 50ml Q4H if allowed. TF Provision --- TF at goal volume to provide 1440 ml total volume, 2160 kcal (+300 kcal via Pro-stat = 2460 kcal), 135 gm pro (+45 gm via ProStat = 180 gm), 1093 ml H20 (meets 100% est. kcal needs, 100% est. protein needs) 3) Monitor Potassium, Phosphate, Magnesium for Refeeding syndrome 4) Des 1 pk daily For DTI 5) Continue current plan of care Expected Outcomes/Goals: Blood glucose to improve Nutrient intake to meet at least 75% estimated needs FU 2-3 days Food and Nutrition Intake (Mod: <75% est energy req 7days MERLIN ROBLES MD Aug 24, 2024 13:44
[2024-08-24] MEDS: BUMETANIDE 2.5mg/10ml (0.25 mg/ml) INJ IV SCH (14:39)
--- NOTE | 2024-08-24 16:24 | DVHNC2 ---
Arterial Puncture Indication: Assess ventilatory status, Assess acid-base status Procedure: Sterile Preparation, Arterial Punct Obtained Location: Right Radial Informed consent obtained: Yes Risks/benefits/alt described: Yes Notes Ultrasound guidance used. CPT code: 89937 Estimated blood loss: 5 mL Date of Service: Aug 24, 2024 Billing Provider: LION ORELLANA NP Common Visit Codes: PROCEDURE ONLY Procedure Codes: [id number] LINE LION ORELLANA NP Aug 24, 2024 16:24
[2024-08-24] MEDS: SODIUM CHLORIDE IV NR (22:09)
[2024-08-24] MEDS: [UNRECOGNIZED DRUG - OTHER] IV NR (22:09)
[2024-08-24] MEDS: POTASSIUM CHLORIDE IV NR (22:09)
[2024-08-24] MEDS: MAGNESIUM SULF IV NR (22:09)
[2024-08-25] VITALS (101 sets, daily range): BP systolic 69–146; BP diastolic 26–75; PULSE 86–110; RESP 11–25; TEMP 97.7–98.8; O2SAT 78–100
[2024-08-25 04:22] LABS: Hemoglobin 8.4 g/dL (13.5-17.5)
[2024-08-25 04:24] LABS: Hematocrit 24.7 % (41.0-53.0); Mean Corpuscular Hemoglobin 30.6 pg (28.0-32.0); Mean Corpuscular Hgb Conc. 34.1 g/dL (32.0-36.0); Mean Corpuscular Volume 89.6 fL (80.0-100.0); Platelet Count (auto) 176 10^3/uL (140-450); Red Blood Cells 2.76 10^6/uL (4.5-5.90); Red Cell Distribution Width 14.9 % (11.8-14.3)
[2024-08-25 04:42] LABS: Alanine Aminotransferase 26 U/L (7-40); Anion Gap 13 (5-15); BUN/Creatinine Ratio 12.3 (10.0-20.0); Carbon Dioxide 22 mmol/L (20-31); Chloride 99 mmol/L (98-107); Phosphorus 4.1 mg/dL (2.4-5.1); Potassium 3.9 mmol/L (3.5-5.1)
[2024-08-25 04:43] LABS: Alkaline Phosphatase 317 U/L (46-116); Aspartate Aminotransferase 49 U/L (13-40); Bilirubin, Total 0.3 mg/dL (0.2-1.0); Calcium 8.4 mg/dL (8.7-10.4); Glucose 152 mg/dL (74-106); Sodium 134 mmol/L (136-145); Total Protein 5.7 g/dL (5.7-8.2)
[2024-08-25 04:54] LABS: Magnesium 2.9 mg/dL (1.6-2.6)
[2024-08-25 04:55] LABS: Blood Urea Nitrogen 88 mg/dL (9-23); White Blood Cell 36.4 10^3/uL (4.4-10.8)
[2024-08-25 04:56] LABS: Basophils % (manual) 0 (0.0-2.0); Myelocytes % 0; Promyelocytes % 0; Reactive Lymphocytes 0
--- NOTE | 2024-08-25 05:13 | DVH ---
CHEST RADIOGRAPH Indication: PNA Technique: Single frontal view of the chest was obtained Comparison: XY CHEST PORTABLE on DOS: 08/24/24 FINDINGS: Lines and Tubes: The endotracheal tube terminates 4.0 cm above the jasbir. Right central venous lexy ter terminates in the superior vena cava. The enteric tube courses below the left hemidiaphragm and t he tip extends outside the field of view. Lungs: Hazy bilateral airspace disease. Pleura: No effusion. No pneumothorax. Cardiomediastinal contours: Unremarkable Bones: No acute osseous abnormality. IMPRESSION: 1. Appropriate position of the support lines and tubes. 2. Persistent hazy bilateral airspace disease which may reflect multifocal edema or pneumonia.
[2024-08-25 05:31] LABS: Band Neutrophils % (manual) 3; Blast Cells 2; Eosinophils % (manual) 4 (0-7); Lymphocytes % (manual) 8 (10.0-50.0); Metamyelocytes % 1; Monocytes % (manual) 9 (0-12)
[2024-08-25 05:32] LABS: Platelet Estimate Adequate
[2024-08-25 07:48] LABS: Base Excess -0.8 mmol/L (-2.0-3.0)
[2024-08-25] MEDS: ALBUMIN 25% 100 ML IV ONE (08:27)
--- NOTE | 2024-08-25 09:11 | DVHPN2 ---
Subjective Patient is intubated and sedated Reviewed: Care Plan, H&P, Labs, Medications, Previous Orders Changes from previous H/P or p: No Changes General: Per HPI; No Fatigue Eyes: No Pain, No Vision change, No Conjunctivae inflammation, No Eyelid inflammation, No Other, No Redness ENT: No Ear pain, No Ear discharge, No Nose pain, No Nose discharge, No Nose congestion, No Mouth pain, No Mouth swelling, No Throat pain, No Throat swelling, No Other Cardiovascular: No Chest Pain, No Palpitations, No Orthopnea, No Paroxysmal Noc. Dyspnea, No Edema, No Lt Headedness, No Other Respiratory: No Cough, No Dry, No Shortness of breath, No SOB with excertion, No Wheezing, No Hemoptysis, No Pleuritic Pain, No Sputum, No Other Gastrointestinal: Nausea, Vomiting; No Abdominal Pain, No Diarrhea; C onstipation; No Melena, No Hematochezia, No Other Genitourinary: No Dysuria, No Frequency, No Incontinence, No Hematuria, No Retention, No Other Musculoskeletal: No other, No neck pain, No shoulder pain, No arm pain, No back pain, No hand pain, No leg pain, No foot pain Skin: No Rash, No Lesions, No Jaundice, No Bruising, No Other Objective Vitals Vital Signs Date Time Temp Pulse Resp B/P (MAP) Pulse Ox O2 Delivery O2 Flow Rate FiO2 08/25/24 08:07 100 18 103/51 (68) 95 65 08/25/24 06:30 97.7 97.7 08/25/24 06:00 Mechanical Ventilator+ Intake/Output Intake and Output 08/25/24 07:00 Intake Total 2001.752 ml Output Total 942 ml Balance 1059.752 ml Intake Oral 100 ml IV Total 1781.752 ml Other 120 ml Output Urine Total 317 ml Gastric Drainage Total 625 ml General Appearance: Alert, Oriented X3, Cooperative, moderate distress, Other (Chemically sedated) HEENT: Atraumatic, PERRLA Lungs: Other (Bilateral rhonchi. Mechanical ventilation) Cardiovascular: Normal S1, Normal S2 Musculoskeletal: Normal sensory function, Normal motor function Neuro: Other (Unable to assess) Skin: Dry, Intact Psych/Mental Status: Other (Unable to assess) Medications Current Medications Medications Dose Ordered Sig/Nikki Route Start Time Stop Time Status Last Admin Dose Admin Ondansetron HCl 4 mg Q4HP PRN IV 08/19/24 13:30 Enoxaparin Sodium 30 mg DAILY SC 08/20/24 10:00 08/21/24 07:51 30 MG Nitroglycerin 0.4 mg Q5MINP PRN SL 08/19/24 13:30 Morphine Sulfate 2 mg Q30M PRN IV 08/19/24 13:30 Diagnostic Test (Pha) 1 strip ACHS 08/19/24 17:00 Cancel Norepinephrine Bitartrate 250 ml @ 3.75 mls/hr Q24H IV 08/19/24 17:15 Cancel Midazolam HCl 50 ml @ 1 mls/hr Q24H IV 08/19/24 17:15 08/25/24 04:10 11 MLS/HR Fentanyl Citrate 250 ml @ 2.5 mls/hr Q24H IV 08/19/24 17:15 08/24/24 22:43 15 MLS/HR Ipratropium [place] 0.5 mg Q6HR NEB 08/19/24 18:00 08/25/24 06:43 0.5 MG Albuterol 2.5 mg Q6HR NEB 08/19/24 18:00 08/25/24 06:43 2.5 MG Diagnostic Test (Pha) 1 strip IQ4HR 08/19/24 20:00 08/25/24 08:09 1 STRIP Insulin Human Regular IQ4HR SC 08/19/24 20:00 08/25/24 08:23 8 UNITS Dextrose 50 ml UD PRN IV 08/19/24 19:15 Pantoprazole Sodium 40 mg BID IV 08/20/24 22:00 08/24/24 22:07 40 MG Bisacodyl 10 mg DAILYP PRN [place] 08/20/24 11:15 Acetaminophen 650 mg Q6HP PRN [place] 08/21/24 01:45 08/23/24 03:36 650 MG Sucralfate 1 gm QID@0600,1130,1700,2200 GT 08/21/24 11:30 08/24/24 05:42 1 GM Metoclopramide HCl 10 mg Q8HR GT 08/21/24 14:00 08/25/24 06:00 10 MG Lactulose 30 ml DAILY JT 08/21/24 11:00 08/24/24 07:40 30 ML Norepinephrine Bitartrate 32 mg/ Sodium Chloride 250 ml @ 0.938 mls/ hr Q24H IV 08/21/24 16:30 08/25/24 08:00 0.938 MLS/HR Fluconazole 100 ml @ 100 mls/hr DAILY IV 08/24/24 10:00 08/24/24 10:06 100 MLS/HR Amino Acids 0 ml @ 0 mls/hr PER PHARMACY IV 08/24/24 09:00 Meropenem 50 ml @ 17 mls/hr DAILY IV 08/24/24 10:00 08/24/24 10:06 17 MLS/HR Sodium Chloride 60 meq/Potassium Chloride 40 meq/ Magnesium Sulfate 4 meq/ Multivitamins 10 ml/Chromium/ Copper/Manganese/ Zinc 1 ml/Insulin Human Regular 8 units/Amino Acids/ Dextrose 1,647.08 ml @ 69 mls/hr [id number] IV 08/24/24 22:00 08/25/24 21:59 08/24/24 22:09 69 MLS/HR Bumetanide 4 mg DAILY IV 08/24/24 13:45 08/24/24 14:39 4 MG Epoetin Aquilino-epbx 10,000 unit TUTHSA@2100 SC 08/25/24 21:00 Laboratory Results Laboratory Tests 08/25/24 03:40 Chemistry Test 08/25/24 03:40 Albumin 3.0 g/dL (3.2-4.8) L Calcium Level 8.4 mg/dL (8.7-10.4) L Magnesium Level 2.9 mg/dL (1.6-2.6) H Phosphorus Level 4.1 mg/dL (2.4-5.1) Total Protein 5.7 g/dL (5.7-8.2) LFT Test 08/25/24 03:40 Alanine Aminotransferase (ALT) 26 U/L (7-40) Alkaline Phosphatase 317 U/L (46-116) H Aspartate Amino Transferase (AST) 49 U/L (13-40) H Total Bilirubin 0.3 mg/dL (0.2-1.0) Urinalysis Test 08/19/24 11:25 Urine Color Colorless (Yellow) Urine Clarity Ex.turbid (Clear) Urine pH 6.5 (5.0-9.0) Urine Specific [place] 1.017 (1.001-1.035) Urine Protein 1+ (Negative) H Urine Ketones Negative (Negative) Urine Blood 1+ /uL (Negative) H Urine Nitrite Negative (Negative) Urine Bilirubin Negative (Negative) Urine Urobilinogen Normal mg/dL (Negative) Urine Leukocyte Esterase Trace /uL (Negative) Urine RBC 5 /hpf (0 - 3) Urine Microscopic WBC 16 /HPF (0-3) H Urine Squamous Epithelial Cells Few /hpf (<5) Urine Renal Epithelial Cells Few /hpf (None Seen) Urine Amorphous Crystals Few /hpf (None Seen) Urine Bacteria Few /hpf (None Seen) H Urine Mucus Few (None Seen) Urine Sperm Present /hpf (None Seen) Urine Creatinine 77.13 mg/dL (30.0-125.0) Urine Sodium 15 mmol/L (40-220) L Urine Glucose 3+ mg/dL (Normal) H Blood Gas Results Test 08/25/24 07:34 Arterial Blood pH 7.389 (7.350-7.450) FiO2 % 65.0 Microbiology Microbiology Date/Time Source Procedure Growth Status 08/20/24 22:05 Nose MRSA Screen - Final Complete 08/19/24 16:30 Sputum Gram Stain - Final Complete 08/19/24 16:30 Respiratory Culture - Final Presumptive Mary albicans Complete 08/19/24 11:25 Voided Urine Urine Culture - Final Complete 08/19/24 11:00 Blood Blood Culture - Final NO GROWTH AFTER 5 DAYS OF INCUBATION. Complete Labs and/or images reviewed: Labs reviewed by me, Image(s) reviewed by me Assessment/Plan Assessment/Plan Impression: -acute hypoxic respiratory failure with mechanical ventilation -probable aspiration pneumonitis/pneumonia -sepsis with shock -obesity -rule out GI bleed -diabetes mellitus with severe hyperglycemia -hyponatremia -hypochloremia -hypokalemia -acute kidney injury, vasomotor nephropathy Plan: -events: Patient receiving hemodialysis. Difficulties with flow from the current temporary catheter. Patient also became hypotensive, requiring norepinephrine to be restarted. Patient also had worsening hypoxia, for which the patient was now on 100% FiO2 -Vent settings: PC 20/12, 100% -Change abx: Meropenem, Diflucan -nephrology consultation: Recommendations reviewed -echocardiogram with ejection fraction around/less than 40% -NG to low intermittent suction -Start TPN -continue Protonix 40 mg IV twice a day, add Carafate 1 g q.i.d. -RISS -repeat labs, chest x-ray, ABG in a.m. -GI consultation recommendations reviewed. Critical care time spent with patient discussing and formulating plan of care: 90 minutes. This does not include time spent performing procedures. This medical document was created using an electronic medical record system with [employer] dictation system. Although this document has been carefully reviewed, there may still be some phonetic and typographical errors. These areas are purely typographical due to imperfections of the software programs, and do not reflect any compromise in the patient's medical care. Plan discussed with: Patient, Other (RN) My Orders Orders - LION ORELLANA NP Procedure Category Date Status Time Amino Acid PHA 08/24/24 In Process Infusion... W/Sodium 22:00 Tpn Per Pharmacy ROHINI 08/24/24 In Process 22:00 Date of Service: Aug 25, 2024 Billing Provider: LION ORELLANA NP Common Visit Codes: [id number] CARE 30-74 MIN LION ORELLANA NP Aug 25, 2024 09:11
--- NOTE | 2024-08-25 14:31 | DVH ---
CHEST RADIOGRAPH Indication: dialysis cath placement verifcation Technique: Single frontal view of the chest was obtained COMPARISON: XY CHEST PORTABLE on DOS: 08/25/24, XY CHEST PORTABLE on DOS: 08/24/24, XY CHEST PORTABLE o n DOS: 08/23/24, XY CHEST PORTABLE on DOS: 08/22/24, XY CHEST PORTABLE on DOS: 08/21/24 FINDINGS: Lines and Tubes: Endotracheal tube, enteric catheter and right central venous catheter in satisfactor y position. Left central venous catheter in uncertain position possibly overlying the course of the p roximal left internal jugular vein. Lungs: Multifocal airspace disease Pleura: No effusion. No pneumothorax. Cardiomediastinal contours: Unremarkable Bones: Unremarkable IMPRESSION: Left central venous catheter in uncertain position possibly overlying the course of the proximal left internal jugular vein.
[2024-08-25] MEDS: HEPARIN DRIP/D5W 100UNITS/ML 250 ML IV SCH (15:00)
[2024-08-25] MEDS ORDERED: KETAMINE 50mg/ML 10ml Vial 10 ML ONE (15:49)
[2024-08-25] MEDS ORDERED: MIDAZOLAM HCL 2MG/2ML 2ml VIAL (1mg/ml) ONE (15:49)
[2024-08-25] MEDS ORDERED: fentaNYL CITRATE 100 MCG/2 ML VL ONE (15:49)
--- NOTE | 2024-08-25 15:50 | DVHCONRES ---
Date Seen: Aug 25, 2024 Resident Creating Document: KAILASH GUTIERREZ Jr., MD Referring Physician Katie Reason for Consultation Malpositioned left neck dialysis catheter History of Present Illness 44-year-old male with past medical history of diabetes, was brought in by family for altered level of consciousness and hyperglycemia. Patient required intubation for aspiration pneumonia. He developed renal failure requiring dialysis via right femoral dialysis catheter temporary. Catheter became malfunctioned. Patient underwent a bedside left dialysis catheter placement today. Catheter was found to be in a arterial vessel based on waveforms that we re hooked up to pressure monitor. The chest x-ray also confirmed that the catheter was most likely in arterial structure. I was asked to see the patient to have the catheter removed. Patient is currently sedated. But when asking the nurse once the sedation is off he responds appropriately. Past Medical History Diabetes Past Surgical History None Family History Noncontributory Social History Smoked cigarettes Allergies: Coded Allergies: NO KNOWN ALLERGIES (Unverified , 10/02/14) Current Medications Current Medications Medications (Trade) Dose Ordered Sig/Nikki Route PRN Reason Start Time Stop Time Status Last Admin Sodium Chloride 60 meq/Potassium Chloride 40 meq/ Magnesium Sulfate 4 meq/ Multivitamins 10 ml/Chromium/ Copper/Manganese/ Zinc 1 ml/Insulin Human Regular 8 units/Amino Acids/ Dextrose 1,647.08 ml @ 69 mls/hr [id number] IV 08/24/24 22:00 08/25/24 21:59 08/24/24 22:09 Epoetin Aquilino-epbx (Retacrit) 10,000 unit TUTHSA@2100 SC 08/25/24 21:00 Sodium Chloride 60 meq/Sodium Acetate 40 meq/ Potassium Chloride 40 meq/ Potassium Acetate 40 meq/ Multivitamins 10 ml/Chromium/ Copper/Manganese/ Zinc 1 ml/Insulin Human Regular 16 units/Amino Acids/ Dextrose 1,886.16 ml @ 78 mls/hr [id number] IV 08/25/24 22:00 08/26/24 21:59 Heparin Sodium/ Dextrose 250 ml @ 10 mls/hr Q24H IV 08/25/24 15:00 Review of Systems Please see chart Vital Signs Vital Signs Date Time Temp Pulse Resp B/P (MAP) Pulse Ox O2 Delivery O2 Flow Rate FiO2 08/25/24 13:45 92 25 121/58 (79) 92 65 08/25/24 12:00 Mechanical Ventilator+ 08/25/24 12:00 98.6 98.6 Physical Exam Patient currently ventilated. Head eyes ears nose and throat exam eyes are nonicteric conjunctiva is pink neck was supple no JVD no lymphadenopathy. Patient has a right neck central line. Patient has a left neck dialysis catheter. Currently intubated decreased breath sounds at bases Heart regular rate and rhythm Abdomen soft nontender no pulsatile abdominal masses Right groin has a temporary dialysis catheter in place. Bilateral pedal pulses are palpable. Labs/Diagnostic Data Labs Test 08/25/24 12:40 08/25/24 07:34 08/25/24 03:40 08/24/24 07:52 Range/Units POC Glucose 326 H 70-106 mg/dl Blood Gas Specimen Type Arterial Blood Gas Sample Site Arterial line Blood Gas Patient Temperature 37.0 Arterial Blood Date Drawn [id number] Arterial Blood pH 7.389 7.350-7.450 Arterial Blood Partial Pressure CO2 40.8 35.0-48.0 mmHg Arterial Blood Partial Pressure O2 80.2 L 83.0-108.0 mmHg Arterial Blood HCO3 24.1 21.0-28.0 mmol/L Arterial Blood Oxygen Saturation 95.3 94.0-98.0 % Arterial Blood Base Excess -0.8 -2.0-3.0 mmol/L Arterial Blood Oxyhemoglobin 94.6 94.0-98.0 % Arterial Blood Carboxyhemoglobin 0.3 L 0.5-1.5 % Arterial Blood Methemoglobin 0.4 0.0-1.5 % Jasvir Test N/a Blood Gas Total Hemoglobin 9.90 L 13.5-17.5 g/dL Blood Gas Set Respiration Rate 18.0 Blood Gas Modality Vent - p/c FiO2 % 65.0 Blood Gas Inspiratory Pressure 20.0 Blood Gas PEEP or CPAP 12.0 White Blood Count 36.4 *H 4.4-10.8 10^3/uL Red Blood Count 2.76 L 4.5-5.90 10^6/uL Hemoglobin 8.4 L 13.5-17.5 g/dL Hematocrit 24.7 L 41.0-53.0 % Mean Corpuscular Volume 89.6 80.0-100.0 fL Mean Corpuscular Hemoglobin 30.6 28.0-32.0 pg Mean Corpuscular Hemoglobin Concent 34.1 32.0-36.0 g/dL Red Cell Distribution Width 14.9 H 11.8-14.3 % Platelet Count 176 140-450 10^3/uL Mean Platelet Volume 9.4 6.9-10.8 fL Neutrophils (%) (Auto) 37.0-80.0 % Lymphocytes (%) (Auto) 10.0-50.0 % Monocytes (%) (Auto) 0.0-12.0 % Basophils (%) (Auto) 0.0-2.0 % Neutrophils # (Auto) 1.6-8.6 10 ^3/uL Lymphocytes # (Auto) 0.4-5.4 10 ^3/uL Monocytes # (Auto) 0-1.3 10 ^3/uL Differential Total Cells Counted 100.0 100 Neutrophils % (Manual) 73 37.0-80.0 Band Neutrophils % (Manual) 3 Lymphocytes % (Manual) 8 L 10.0-50.0 Monocytes % (Manual) 9 0-12 Eosinophils % (Manual) 4 0-7 Basophils % (Manual) 0 0.0-2.0 Metamyelocytes % (manual) 1 Myelocytes % (Manual) 0 Promyelocytes % (Manual) 0 Blast Cells % (Manual) 2 Reactive Lymphocytes 0 Platelet Estimate Adequate Sodium Level 134 L 136-145 mmol/L Potassium Level 3.9 3.5-5.1 mmol/L Chloride Level 99 98-107 mmol/L Carbon Dioxide Level 22 20-31 mmol/L Anion Gap 13 5-15 Blood Urea Nitrogen 88 #*H 9-23 mg/dL Creatinine 7.15 H 0.700-1.30 mg/dL Glomerular Filtration Rate Calc 9 >90 mL/min BUN/Creatinine Ratio 12.3 10.0-20.0 Serum Glucose 152 H 74-106 mg/dL Calcium Level 8.4 L 8.7-10.4 mg/dL Phosphorus Level 4.1 2.4-5.1 mg/dL Magnesium Level 2.9 H 1.6-2.6 mg/dL Total Bilirubin 0.3 0.2-1.0 mg/dL Aspartate Amino Transferase (AST) 49 H 13-40 U/L Alanine Aminotransferase (ALT) 26 7-40 U/L Alkaline Phosphatase 317 H 46-116 U/L Total Protein 5.7 5.7-8.2 g/dL Albumin 3.0 L 3.2-4.8 g/dL Blood Gas Spontaneous Rate 25 Test 08/24/24 03:17 08/23/24 07:13 08/20/24 13:11 08/20/24 12:24 Range/Units Triglycerides Level 343 H < 150 mg/dL Random Vancomycin Level 12.2 H 5-10 ug/mL Blood Gas Comments Blood Gas Critical Value Read Back Yes Blood Gas Notified Whom Dr. delcid Blood Gas Notified Time [id number] Blood Gas Notified By Andrew ramirez, linda Hepatitis A IgM Antibody Negative Hepatitis B Surface Antigen Negative Negative Hepatitis B Core IgM Antibody Negative Negative Hepatitis C Antibody Negative Negative Influenza Type A Antigen Negative Negative Influenza Type B Antigen Negative Negative SARS-CoV-2 Antigen (Rapid) Negative NEGATIVE Test 08/19/24 20:50 08/19/24 16:55 08/19/24 16:07 08/19/24 13:07 Range/Units Blood Gas Pressure Support 26 D-Dimer, Quantitative 1.19 H 0.0-0.49 mg/L FEU Creatine Kinase 115 46-171 U/L Amylase Level 47 30-118 U/L Lipase 41 12-53 U/L Blood Gas Liter Flow 15.00 Lactic Acid Level 4.6 *H 0.4-2.0 mmol/L Test 08/19/24 11:25 08/19/24 11:00 Range/Units Urine Color Colorless Yellow Urine Clarity Ex.turbid Clear Urine pH 6.5 5.0-9.0 Urine Specific [place] 1.017 1.001-1.035 Urine Protein 1+ H Negative Urine Ketones Negative Negative Urine Blood 1+ H Negative /uL Urine Nitrite Negative Negative Urine Bilirubin Negative Negative Urine Urobilinogen Normal Negative mg/dL Urine Leukocyte Esterase Trace Negative /uL Urine RBC 5 0 - 3 /hpf Urine Microscopic WBC 16 H 0-3 /HPF Urine Squamous Epithelial Cells Few <5 /hpf Urine Renal Epithelial Cells Few None Seen /hpf Urine Amorphous Crystals Few None Seen /hpf Urine Bacteria Few H None Seen /hpf Urine Mucus Few None Seen Urine Sperm Present None Seen /hpf Urine Creatinine 77.13 30.0-125.0 mg/dL Urine Sodium 15 L 40-220 mmol/L Urine Glucose 3+ H Normal mg/dL Urine Opiates Screen Neg NEGATIVE Urine Fentanyl Screen Neg NEGATIVE Urine Barbiturates Screen Neg NEGATIVE Urine Phencyclidine Screen Neg NEGATIVE Urine Amphetamines Screen Neg NEGATIVE Urine Benzodiazepines Screen Neg NEGATIVE Urine Cocaine Screen Neg NEGATIVE Urine Cannabinoids Screen Neg NEGATIVE Hemoglobin A1c 11.7 H <5.7 % A1C Beta-Hydroxybutyric Acid 0.498 H < 0.4 mmol/L Plasma/Serum Blood Alcohol < 3.0 <10 mg/dL Microbiology Date/Time Source Procedure Growth Status 08/23/24 22:30 Bronchial Washings Gram Stain Pending Resulted 08/23/24 22:30 Bronchial Washings Respiratory Culture - Preliminary Resulted 08/20/24 22:05 Nose MRSA Screen - Final Complete 08/19/24 11:25 Voided Urine Urine Culture - Final Complete 08/19/24 11:00 Blood Blood Culture - Final NO GROWTH AFTER 5 DAYS OF INCUBATION. Complete CHEST RADIOGRAPH Indication: dialysis cath placement verifcation Technique: Single frontal view of the chest was obtained COMPARISON: XY CHEST PORTABLE on DOS: 08/25/24, XY CHEST PORTABLE on DOS: 08/24/24, XY CHEST PORTABLE on DOS: 08/23/24, XY CHEST PORTABLE on DOS: 08/22/24, XY CHEST PORTABLE on DOS: 08/21/24 FINDINGS: Lines and Tubes: Endotracheal tube, enteric catheter and right central venous catheter in satisfactory position. Left central venous catheter in uncertain position possibly overlying the course of the proximal left internal jugular vein. Lungs: Multifocal airspace disease Pleura: No effusion. No pneumothorax. Cardiomediastinal contours: Unremarkable Bones: Unremarkable IMPRESSION: Left central venous catheter in uncertain position possibly overlying the course of the proximal left internal jugular vein. Assessment 44-year-old male who is currently intubated with aspiration pneumonia with renal failure. Underwent a left neck catheter placement today for dialysis access. However the catheter is in her arterial structure. We will require surgical exploration of the neck to remove the catheter and repair of the artery which most likely is the carotid artery. Patient also has a dialysis catheter in the right groin which is mild functional which will need to be exchanged out for a new catheter. I discussed with the sister Sheree at length the risks benefits of the procedure of removing the catheter from the carotid artery. Risks include stroke, CA or . She agrees with proceeding I had the nurse at the bedside witnessed the consent. We will also at the time exchanged out the right femoral dialysis catheter for a longer dialysis catheter under fluoroscopy guidance and tunneled this catheter so it can stay in for a longer period of time. The above procedures will be performed on an emergent basis. Plan/Recommendation 44-year-old male who is currently intubated with aspiration pneumonia with renal failure. Underwent a left neck catheter placement today for dialysis access. However the catheter is in her arterial structure. We will require surgical exploration of the neck to remove the catheter and repair of the artery which most likely is the carotid artery. Patient also has a dialysis catheter in the right groin which is mild functional which will need to be exchanged out for a new catheter. I discussed with the sister Sheree at length the risks benefits of the procedure of removing the catheter from the carotid artery. Risks include stroke, CA or . She agrees with proceeding I had the nurse at the bedside witnessed the consent. We will also at the time exchanged out the right femoral dialysis catheter for a longer dialysis catheter under fluoroscopy guidance and tunneled this catheter so it can stay in for a longer period of time. The above procedures will be performed on an emergent basis. Plan discussed with: Patient KAILASH GUTIERREZ Jr., MD Aug 25, 2024 15:50
[2024-08-25] MEDS ORDERED: LIDOCAINE 1% INJ PF 5ML AMP ONE (15:52)
[2024-08-25] MEDS ORDERED: DexAMETHasone SOD PHOS 10MG/1ML VIAL INJ ONE (15:52)
[2024-08-25] MEDS ORDERED: SODIUM CHLORIDE LOCK 10 ML ONE (15:52)
[2024-08-25] MEDS ORDERED: ETOMIDATE (2MG/ML) 20ML VIAL IV ONE (15:52)
[2024-08-25 16:02] LABS: Base Excess -2.2 mmol/L (-2.0-3.0)
[2024-08-25] MEDS: HEPARIN SODIUM (PORCINE) 5000 UNITS/ML 1ML VIAL IV ONE (16:02)
[2024-08-25 16:33] LABS: INR 1.14 (0.9-1.15); Partial Thromboplastin Time 33.3 SEC (24.5-34.5); Prothrombin Time 11.9 sec (9.3-11.8)
[2024-08-25] MEDS ORDERED: ROCURONIUM 10MG/ML 10ML VIAL IV ONE (16:49)
--- NOTE | 2024-08-25 18:54 | DVHOP2 ---
Operative Report - 2 Report Details Date: 08/25/24 Preop Diagnosis: Malpositioned left neck dialysis catheter. Malfunctioning right femoral dialysis catheter Postop Diagnosis: 1. Injury to left carotid artery. 2.Injury to the left internal jugular vein, Surgeon: Dawit Restrepo MD Anesthesiologist: General endotracheal tube Anesthesia: General Drains: FAIZA drain Consent: The patient was informed of the risks and benefits of the procedure. These include but are not limited to complications of anesthesia, postoperative infection, incomplete relief of symptoms, recurrence of symptoms, damage to blood vessels, nerves and tendons, deep venous thrombosis, pulmonary embolism and possible need for repeat surgery in the future. Estimated Blood Loss: 200 mL Findings: Malpositioned left neck dialysis catheter catheter went through the internal jugular vein and through the side wall of the left common carotid artery Indications for Surgery: Malpositioned left neck dialysis catheter Name of Procedure Performed Removal of left neck dialysis catheter, repair of internal jugular vein, repair of left common carotid artery. Placement of right femoral tunneled dialysis catheter Procedure Details Procedure Details: Patient was brought to the operating room intubated. Patient was placed in the operating room table in a supine position after adequate induction of anesthesia antibiotics and time-out the left neck and right groin was prepped and draped in normal surgical fashion. A standard carotid incision was made over the left neck just medial to the exit site of the non tunneled dialysis catheter. Bovie cauterization was used to dissect down through the platysma. The dissection was then taken down there was a hematoma that was encountered the internal jugular vein was then identified and mobilized proximally and distally the catheter had traverse through and through from anterior to posterior through separate holes in the internal jugular vein once proximal and distal control of the internal jugular vein was obtained with vessel loops. Attention was then placed to f ollowed the catheter down to the common carotid artery where the common carotid artery was then proximally controlled with vessel loops there was notice of the catheter entering the lateral wall of the common carotid artery more cephalad control of the common carotid artery was obtained with vessel loops with having controlled proximally and distally of the carotid artery the dialysis catheter was then removed from both the common carotid artery and then out of the internal jugular vein and then out of the skin. At this point in time the common carotid artery was repaired 1st with the 6 0 Prolene suture in a running fashion in a transverse fashion. The clamps were then released prior to releasing the clamps the the vessel had been flushed with heparinized saline repair was good backflow and good antegrade flow. The anastomosis had been completed the clamps were removed flow had been restored. Surgicel was applied to the common carotid artery suture line. And then the attention was then placed to repair the 2 holes in the internal jugular vein the anterior hole was repaired 1st with a pursestring suture the posterior suture was done in a running fashion because the exit site was larger and needed to repaired in a transverse fashion with a 6 0 Prolene suture. The vessel loops were released of the proximal and distal control of the jugular vein and the the vein dilated up well at this point in time the flow was confirmed with Doppler signals in all vessels involved included the proximal and distal common carotid artery and the internal jugular vein proximally and distally. At this point in time the wound was then irrigated out and a FAIZA drain was placed underneath the carotid sheath. And exited out a stab incision in the lateral neck. The catheter was secured in place with a 2-0 nylon suture. The carotid sheath was then closed with 2-0 Vicryl sutures interruptedly followed by the platysmal layer closure with the 2- 0 Vicryl sutures in a running fashion. The skin was then closed with 4-0 Monocryl subcuticular suture. Dermabond was applied to the skin. Sterile dressings were applied. Attention was then placed to the right groin. The catheter in the right groin was then aspirated there was good flow in the both catheters ports. The wire was then passed up into the IVC under fluoroscopy guidance through the port a stab incision was made in the lateral thigh. The catheter was removed the wire was left in place. Using a tunneler the 27 cm catheter was then tunneled from the lateral incision to the groin puncture site. At this point in time under direct fluoroscopy observation the peel-away sheath was then inserted over the wire without difficulty the catheter was then placed into the peel-away sheath the peel-away sheath was peeled away and the catheter was placed in the proximal common iliac vein/IVC. Sheath and wires were removed. The catheter was then tested there was excellent a spiration. And the catheter was then primed with 5000 units of heparin in the ports which was into 2500 units each. Catheter was secured in place with the 2-0 nylon sutures. And the puncture site at the groin was closed with the pursestring 2-0 Vicryl suture. Sterile dressing was applied. The patient was then transported to the ICU in guarded condition. The sponge and needle counts were correct at the end of the procedure. I spoke with the sister Sheree via phone and explained the important details of the operation to her and the outcome. She understands all questions were answered. Condition Critical Disposition ICu DAWIT RESTREPO Jr., MD Aug 25, 2024 18:54
--- NOTE | 2024-08-25 19:31 | DVH ---
C-ARM FLUOROSCOPY: PROCEDURE: right artery cath placement FLUOROSCOPY TIME: 33 sec DAP: 2 mgy FINDINGS: Spot intraoperative C arm radiographs demonstrating right arterty cath . IMPRESSION: Please refer to surgical report for detailed findings.
--- NOTE | 2024-08-25 19:31 | DVH ---
C-ARM FLUOROSCOPY: PROCEDURE: right artery cath placement FLUOROSCOPY TIME: 33 sec DAP: 2 mgy FINDINGS: Spot intraoperative C arm radiographs demonstrating right arterty cath . IMPRESSION: Please refer to surgical report for detailed findings.
--- NOTE | 2024-08-25 20:14 | DVHPN2 ---
Progress Note Date Seen: Aug 25, 2024 Medical Necessity Reason Pt with a Central, PICC or Fol: Yes The following are medically ne: Central Line, Chavez Catheter Reason for chavez catheter: Strict I&O Subjective Patient reports: Other Review of Systems: Deferred Objective vital signs Vital Sign Date Time Temp Pulse Resp B/P (MAP) Pulse Ox O2 Delivery O2 Flow Rate FiO2 08/25/24 19:04 100 18 98/38 (58) 98 65 08/25/24 18:30 98.2 98.2 08/25/24 18:30 Mechanical Ventilator+ Total Intake and Output 08/24/24 08/24/24 08/25/24 15:00 23:00 07:00 Intake Total 677.000 ml 539.752 ml 880 ml Output Total 625 ml 317 ml Balance 677.000 ml -85.248 ml 563 ml medications Current Medications Medications Dose Ordered Sig/Nikki Route Start Time Stop Time Status Last Admin Dose Admin Ondansetron HCl 4 mg Q4HP PRN IV 08/19/24 13:30 Enoxaparin Sodium 30 mg DAILY SC 08/20/24 10:00 08/25/24 11:03 30 MG Nitroglycerin 0.4 mg Q5MINP PRN SL 08/19/24 13:30 Morphine Sulfate 2 mg Q30M PRN IV 08/19/24 13:30 Diagnostic Test (Pha) 1 strip ACHS 08/19/24 17:00 Cancel Norepinephrine Bitartrate 250 ml @ 3.75 mls/hr Q24H IV 08/19/24 17:15 Cancel Midazolam HCl 50 ml @ 1 mls/hr Q24H IV 08/19/24 17:15 08/25/24 15:06 9 MLS/HR Fentanyl Citrate 250 ml @ 2.5 mls/hr Q24H IV 08/19/24 17:15 08/25/24 15:33 20 MLS/HR Ipratropium [place] 0.5 mg Q6HR NEB 08/19/24 18:00 08/25/24 19:04 0.5 MG Albuterol 2.5 mg Q6HR NEB 08/19/24 18:00 08/25/24 19:03 2.5 MG Diagnostic Test (Pha) 1 strip IQ4HR 08/19/24 20:00 08/25/24 16:05 1 STRIP Insulin Human Regular IQ4HR SC 08/19/24 20:00 08/25/24 16:08 16 UNITS Dextrose 50 ml UD PRN IV 08/19/24 19:15 Pantoprazole Sodium 40 mg BID IV 08/20/24 22:00 08/25/24 11:02 40 MG Bisacodyl 10 mg DAILYP PRN [place] 08/20/24 11:15 Acetaminophen 650 mg Q6HP PRN [place] 08/21/24 01:45 08/23/24 03:36 650 MG Sucralfate 1 gm QID@0600,1130,1700,2200 GT 08/21/24 11:30 08/24/24 05:42 1 GM Metoclopramide HCl 10 mg Q8HR GT 08/21/24 14:00 08/25/24 14:02 10 MG Lactulose 30 ml DAILY JT 08/21/24 11:00 08/25/24 11:02 30 ML Norepinephrine Bitartrate 32 mg/ Sodium Chloride 250 ml @ 0.938 mls/ hr Q24H IV 08/21/24 16:30 08/25/24 08:00 0.938 MLS/HR Fluconazole 100 ml @ 100 mls/hr DAILY IV 08/24/24 10:00 08/25/24 11:01 100 MLS/HR Amino Acids 0 ml @ 0 mls/hr PER PHARMACY IV 08/24/24 09:00 Meropenem 50 ml @ 17 mls/hr DAILY IV 08/24/24 10:00 08/25/24 11:02 17 MLS/HR Sodium Chloride 60 meq/Potassium Chloride 40 meq/ Magnesium Sulfate 4 meq/ Multivitamins 10 ml/Chromium/ Copper/Manganese/ Zinc 1 ml/Insulin Human Regular 8 units/Amino Acids/ Dextrose 1,647.08 ml @ 69 mls/hr [id number] IV 08/24/24 22:00 08/25/24 21:59 08/24/24 22:09 69 MLS/HR Bumetanide 4 mg DAILY IV 08/24/24 13:45 08/24/24 14:39 4 MG Epoetin Aquilino-epbx 10,000 unit TUTHSA@2100 [place] 08/25/24 21:00 Sodium Chloride 60 meq/Sodium Acetate 40 meq/ Potassium Chloride 40 meq/ Potassium Acetate 40 meq/ Multivitamins 10 ml/Chromium/ Copper/Manganese/ Zinc 1 ml/Insulin Human Regular 16 units/Amino Acids/ Dextrose 1,886.16 ml @ 78 mls/hr [id number] IV 08/25/24 22:00 08/26/24 21:59 Heparin Sodium/ Dextrose 250 ml @ 10 mls/hr Q24H IV 08/25/24 15:00 Examination: GENERAL:Abnormal, CVS:Abnormal, ABDOMEN:Abnormal laboratory and microbiology Laboratory Tests 08/25/24 03:40 Test 08/25/24 03:40 Range/Units Serum Glucose 152 H 74-106 mg/dL Microbiology Date/Time Source Procedure Growth Status 08/23/24 22:30 Bronchial Washings Gram Stain Pending Resulted 08/23/24 22:30 Bronchial Washings Respiratory Culture - Preliminary Resulted 08/20/24 22:05 Nose MRSA Screen - Final Complete 08/19/24 11:25 Voided Urine Urine Culture - Final Complete 08/19/24 11:00 Blood Blood Culture - Final NO GROWTH AFTER 5 DAYS OF INCUBATION. Complete Problem List/Assessment/Plan Problem List/Assessment/Plan Acute kidney injury in the setting of hypotension and volume depletion -> ATN early signs Metabolic alkalosis in the setting of vomiting-> chloride depletion Hypokalemia Severe hyperglycemia Hyponatremia in the setting of hyperglycemia hyperosmolar state Uncontrolled diabetes acute respiratory failure due to aspiration pneumonia? HD attempted today with temporary femoral line unsuccessful. Attempt made by me to place LIJ catheter, placement unsuccessful catheter visualized in IJ but went through into carotid. Vascular surgery called for repair. clinically hypervolemic UOP minimal- CXR still shows severe congestion, will resume frequent HD after for metabolic and volume control diuretics cancelled b/c anuric at this time continue HD next treatment tomorrow still has high O2 requirements today FIO2 70% PEEP 12 Pressors to maintain mean arterial pressure greater than 65 Continue with I&O in urinary output monitoring Patient is critically ill critical care time spent 70 minutes Guarded prognosis Plan discussed with: Other (sister) My Orders My Orders Orders - MERLIN ROBLES MD Procedure Category Date Status Time Chest Portable XY 08/25/24 Resulted 13:40 Dietary Evaluation Review Recommendations by RD: Protein Supplementation, PPN/TPN Comments: Pt is at high risk of malnutrition due to prolonged vomiting leading to inadequate nutrient intake and hypermetabolic state secondary to acute inflammation. Recommendation: 1) Start PN/TPN per pharmacy 2) If GI is accessible, consider TF Pivot 1.5Cal @ 60ml/hr along with Pro-stat 1 pk TID. Start @ 10ml/hr, increase 10ml/hr Q4H until goal rate is reached. Advance TF rate slowly and gradually to prevent Refeeding syndrome. Water Flush 50ml Q4H if allowed. TF Provision --- TF at goal volume to provide 1440 ml total volume, 2160 kcal (+300 kcal via Pro-stat = 2460 kcal), 135 gm pro (+45 gm via ProStat = 180 gm), 1093 ml H20 (meets 100% est. kcal needs, 100% est. protein needs) 3) Monitor Potassium, Phosphate, Magnesium for Refeeding syndrome 4) Des 1 pk daily For DTI 5) Continue current plan of care Expected Outcomes/Goals: Blood glucose to improve Nutrient intake to meet at least 75% estimated needs FU 2-3 days Food and Nutrition Intake (Mod: <75% est energy req 7days MERLIN ROBLES MD Aug 25, 2024 20:14
[2024-08-25 20:17] LABS: Platelet Count (auto) 180 10^3/uL (140-450)
--- NOTE | 2024-08-25 20:18 | DVHNC2 ---
Procedure - refer to progress note of same day sterile attempt LIJ temporary dialysis catheter unsuccessful. Guidewire visualized in vein prior to dilation however CXR shows improper position. Vascular surgery called as catheter likely went through jugular vein into carotid artery MERLIN ROBLES MD Aug 25, 2024 20:18
[2024-08-25 20:19] LABS: Hematocrit 23.1 % (41.0-53.0); Hemoglobin 7.7 g/dL (13.5-17.5); Mean Corpuscular Hgb Conc. 33.5 g/dL (32.0-36.0); Mean Corpuscular Volume 89.5 fL (80.0-100.0); Red Blood Cells 2.58 10^6/uL (4.5-5.90); Red Cell Distribution Width 15.4 % (11.8-14.3)
[2024-08-25 20:23] LABS: White Blood Cell 34.8 10^3/uL (4.4-10.8)
[2024-08-25 20:24] LABS: Basophils % (manual) 0 (0.0-2.0); Blast Cells 0; Myelocytes % 0; Promyelocytes % 0; Reactive Lymphocytes 0
[2024-08-25] MEDS: HEPARIN SODIUM (PORCINE) 5000 UNITS/ML 1ML VIAL ONE (20:28)
[2024-08-25] MEDS: LIDOCAINE 1% (LOCAL ANESTH.) PF 5ml SDV ONE (20:28)
[2024-08-25] MEDS: Lidocaine/Epinephrine 1%-1:100,000 30ML VL ONE (20:28)
[2024-08-25] MEDS: LIDOCAINE 1% HCL (LOCAL ANESTH.) INJ 20ML MDV ONE (20:29)
[2024-08-25] MEDS: IOHEXOL 300 MG/ML 100ML BOTTLE IJ ONE (20:29)
[2024-08-25] MEDS: BUPIVACAINE HCL 0.25% P/F 10 ML VIAL ONE (20:29)
[2024-08-25 20:42] LABS: Band Neutrophils % (manual) 10; Eosinophils % (manual) 1 (0-7); Lymphocytes % (manual) 7 (10.0-50.0); Metamyelocytes % 2; Monocytes % (manual) 6 (0-12); Platelet Estimate Adequate
[2024-08-25 20:43] LABS: Large Platelets FEW; RBC Morphology Normal
[2024-08-25] MEDS: SODIUM CHL 0.9% 1000 ML BAG XX ONE (20:51)
[2024-08-25] MEDS ORDERED: EPOETIN ALFA-EPBX 10,000 UNIT/1ML VIAL SC SCH (21:00)
[2024-08-25] MEDS: TPN PER PHARMACY IV NR (21:53)
--- NOTE | 2024-08-25 23:26 | DVHPN2 ---
Progress Note - Dictate Date Seen: Aug 25, 2024 Medical Necessity Reason Pt with a Central, PICC or Fol: Yes The following are medically ne: Central Line, Chavez Catheter Reason for chavez catheter: Strict I&O Subjective Patient seen and examined at bedside. Sedated, intubated on mechanical ventilator. Overnight events reviewed. vital signs Vital Sign Date Time Temp Pulse Resp B/P (MAP) Pulse Ox O2 Delivery O2 Flow Rate FiO2 08/25/24 22:40 97.7 89 18 126/74 97.7 08/25/24 22:00 98 Mechanical Ventilator+ 50 50 Total Intake and Output 08/24/24 08/24/24 08/25/24 15:00 23:00 07:00 Intake Total 677.000 ml 539.752 ml 880 ml Output Total 625 ml 317 ml Balance 677.000 ml -85.248 ml 563 ml medications Current Medications Medications Dose Ordered Sig/Nikki Route Start Time Stop Time Status Last Admin Dose Admin Ondansetron HCl 4 mg Q4HP PRN IV 08/19/24 13:30 Enoxaparin Sodium 30 mg DAILY SC 08/20/24 10:00 Hold 08/25/24 11:03 30 MG Nitroglycerin 0.4 mg Q5MINP PRN SL 08/19/24 13:30 Morphine Sulfate 2 mg Q30M PRN IV 08/19/24 13:30 Diagnostic Test (Pha) 1 strip ACHS 08/19/24 17:00 Cancel Norepinephrine Bitartrate 250 ml @ 3.75 mls/hr Q24H IV 08/19/24 17:15 Cancel Midazolam HCl 50 ml @ 1 mls/hr Q24H IV 08/19/24 17:15 08/25/24 20:31 7 MLS/HR Fentanyl Citrate 250 ml @ 2.5 mls/hr Q24H IV 08/19/24 17:15 08/25/24 15:33 20 MLS/HR Ipratropium [place] 0.5 mg Q6HR NEB 08/19/24 18:00 08/25/24 19:04 0.5 MG Albuterol 2.5 mg Q6HR NEB 08/19/24 18:00 08/25/24 19:03 2.5 MG Diagnostic Test (Pha) 1 strip IQ4HR 08/19/24 20:00 08/25/24 20:25 1 STRIP Insulin Human Regular IQ4HR SC 08/19/24 20:00 08/25/24 20:26 16 UNITS Dextrose 50 ml UD PRN IV 08/19/24 19:15 Pantoprazole Sodium 40 mg BID IV 08/20/24 22:00 08/25/24 21:48 40 MG Bisacodyl 10 mg DAILYP PRN [place] 08/20/24 11:15 Acetaminophen 650 mg Q6HP PRN [place] 08/21/24 01:45 08/23/24 03:36 650 MG Sucralfate 1 gm QID@0600,1130,1700,2200 GT 08/21/24 11:30 08/25/24 21:47 1 GM Metoclopramide HCl 10 mg Q8HR GT 08/21/24 14:00 08/25/24 22:01 10 MG Lactulose 30 ml DAILY JT 08/21/24 11:00 08/25/24 11:02 30 ML Norepinephrine Bitartrate 32 mg/ Sodium Chloride 250 ml @ 0.938 mls/ hr Q24H IV 08/21/24 16:30 08/25/24 08:00 0.938 MLS/HR Fluconazole 100 ml @ 100 mls/hr DAILY IV 08/24/24 10:00 08/25/24 11:01 100 MLS/HR Amino Acids 0 ml @ 0 mls/hr PER PHARMACY IV 08/24/24 09:00 Meropenem 50 ml @ 17 mls/hr DAILY IV 08/24/24 10:00 08/25/24 11:02 17 MLS/HR Bumetanide 4 mg DAILY IV 08/24/24 13:45 08/24/24 14:39 4 MG Sodium Chloride 60 meq/Sodium Acetate 40 meq/ Potassium Chloride 40 meq/ Potassium Acetate 40 meq/ Multivitamins 10 ml/Chromium/ Copper/Manganese/ Zinc 1 ml/Insulin Human Regular 16 units/Amino Acids/ Dextrose 1,886.16 ml @ 78 mls/hr [id number] IV 08/25/24 22:00 08/26/24 21:59 08/25/24 21:53 78 MLS/HR Heparin Sodium/ Dextrose 250 ml @ 10 mls/hr Q24H IV 08/25/24 15:00 Epoetin Aquilino-epbx 10,000 unit TUTMEGHNA@2100 [place] 08/26/24 21:00 objective Gen.: Patient lying in bed in medical ICU. Sedated, intubated on mechanical ventilator. Head: Normocephalic, atraumatic. Eyes: PERRLA. Ears: Normal external anatomy. Throat: Endotracheal tube and orogastric tube in place. Neck: Supple, trachea midline. Chest: Transmitted breath sounds bilaterally. Decreased air entry bilaterally. No wheezing. Bibasilar crackles. Cardiovascular: Positive S1, positive S2. Regular rate and rhythm. Abdomen: Positive bowel sounds in all 4 quadrants. Soft, nontender, nondistended. : Chavez in place. Normal external genitalia. Rectal: Deferred. Skin: Warm, dry. Intact. Extremities: 2+ radial pulses bilaterally. No lower extremity edema. Neuro: Sedated laboratory and microbiology Laboratory Tests 08/25/24 20:00 08/25/24 03:40 Test 08/25/24 03:40 Range/Units Serum Glucose 152 H 74-106 mg/dL Assessment/Plan Impression: Acute hypoxic respiratory failure On mechanical ventilator Gastrointestinal hemorrhage, upper Aspiration pneumonia MAGDALENA mucous plug Obesity BMI 35.9 Events: Remains on vent support Vent settings: PCV mode; respiratory rate 18; I-Pressure 18; I-time 0.8, PEEP 12, FiO2 65% Sedated on Versed, Fentanyl Pressors for hemodynamic support On Levophed 10 mcg/min Titrate to keep mean arterial pressure greater than 65 mmHg. s/p vascular surgery for carotid repair. Monitor FAIZA drain output. S/p bronchoscopy w/ BAL on 08/23/24 -cleared mucous plugging from L1-L10 and R1- R10 See separate procedure note for details. NGT in place Monitor hemoglobin HD per Nephrology Monitor renal function Monitor electrolytes. Supplement as necessary. Nephrology recommendations appreciated. Continue bronchodilators Continue antibiotics. Continue antifungals Follow up cultures TPN for nutritional support ABG reviewed, compensated CXR reviewed. Accu-Cheks, ISS Labs and imaging reviewed. Rest of plan as noted below Plan: s/p intubation on mechanical ventilator. Placed on PC mode due to high peak pressure Vent settings: PCV mode; respiratory rate 18; I-Pressure 18; I-time 0.8, PEEP 12, FiO2 65% Titrate FIO2 to keep O2 saturation above 90%. VAP bundle. Daily ABG and CXR while intubated Sedate for ventilator synchrony Patient underwent therapeutic bronchoscopy on 08/19/24 with clearing of mucous plugging. Aspirated coffee ground material removed from within the bilateral lungs. See separate procedure note for details. Continue bronchodilators. Continue antibiotics. Pressors as necessary for hemodynamic support Titrate to keep mean arterial pressure greater than 65 mmHg. Monitor hemoglobin Follow up GI recs IV fluids with NS Monitor renal function Monitor electrolytes. Supplement as necessary. Monitor ins and outs. Accu-Cheks, ISS GI prophylaxis - Protonix. DVT prophylaxis - Lovenox. Prognosis: Poor given patient's multiple co-morbidities. Condition: Critical Rest of plan per hospitalist and other consultants. A total of 35 minutes of critical care time was spent reviewing the patient record, examining the patient, making a diagnostic and therapeutic plan, discussing this plan with the medical personnel, following up on diagnostic studies and following the patient for clinical stability excluding any and all procedures. At least 50% of this time was spent in direct, [id number] contact. Thank you, DEON Morrison, for allowing me to participate in this patient's care. Further recommendations will depend on the patient's clinical course. Please do not hesitate to contact me if you have any questions or concerns. This medical document was created using an electronic medical record system with [employer] computerized dictation system. Although these documentations are being carefully reviewed, there may still be some phonetic and typographical changes. The errors are purely typographical, due to imperfection on the software program, and do not reflect any compromise in the patient's medical care. Dietary Evaluation Review Recommendations by RD: Protein Supplementation, PPN/TPN Comments: Pt is at high risk of malnutrition due to prolonged vomiting leading to inadequate nutrient intake and hypermetabolic state secondary to acute inflammation. Recommendation: 1) Start PN/TPN per pharmacy 2) If GI is accessible, consider TF Pivot 1.5Cal @ 60ml/hr along with Pro-stat 1 pk TID. Start @ 10ml/hr, increase 10ml/hr Q4H until goal rate is reached. Advance TF rate slowly and gradually to prevent Refeeding syndrome. Water Flush 50ml Q4H if allowed. TF Provision --- TF at goal volume to provide 1440 ml total volume, 2160 kcal (+300 kcal via Pro-stat = 2460 kcal), 135 gm pro (+45 gm via ProStat = 180 gm), 1093 ml H20 (meets 100% est. kcal needs, 100% est. protein needs) 3) Monitor Potassium, Phosphate, Magnesium for Refeeding syndrome 4) Des 1 pk daily For DTI 5) Continue current plan of care Expected Outcomes/Goals: Blood glucose to improve Nutrient intake to meet at least 75% estimated needs FU 2-3 days Food and Nutrition Intake (Mod: <75% est energy req 7days Plan discussed with: Other (MARYURI Wei) Critical Care Time(min): 35 LINO CARRION MD Aug 25, 2024 23:26
[2024-08-26] VITALS (112 sets, daily range): BP systolic 84–154; BP diastolic 28–90; PULSE 88–108; RESP 8–25; TEMP 97.7–99.3; O2SAT 88–100
--- NOTE | 2024-08-26 04:13 | DVH ---
INDICATION: PNA TECHNIQUE: Single frontal view of the chest was obtained COMPARISON: XY CHEST PORTABLE on DOS: 08/25/24, XY CHEST PORTABLE on DOS: 08/25/24, XY CHEST PORTABLE o n DOS: 08/24/24, XY CHEST PORTABLE on DOS: 08/23/24, XY CHEST PORTABLE on DOS: 08/22/24, XY CHEST PORTAB LE on DOS: 08/25/24 FINDINGS: Lines and Tubes: Endotracheal tube, enteric catheter and right central venous catheter in satisfactor y position. Left central venous catheter in uncertain position possibly overlying the course of the p roximal left internal jugular vein. Lungs: Multifocal airspace disease Pleura: No effusion. No pneumothorax. Cardiomediastinal contours: Unremarkable Bones: Unremarkable IMPRESSION: Left central venous catheter in uncertain position possibly overlying the course of the proximal left internal jugular vein.
[2024-08-26 04:20] LABS: Mean Corpuscular Hemoglobin 29.6 pg (28.0-32.0); Red Cell Distribution Width 16.3 % (11.8-14.3)
[2024-08-26 04:22] LABS: Hematocrit 23.6 % (41.0-53.0); Hemoglobin 7.9 g/dL (13.5-17.5); Mean Corpuscular Hgb Conc. 33.3 g/dL (32.0-36.0); Platelet Count (auto) 174 10^3/uL (140-450); Red Blood Cells 2.66 10^6/uL (4.5-5.90); White Blood Cell 29.4 10^3/uL (4.4-10.8)
[2024-08-26 04:26] LABS: Basophils % (manual) 0 (0.0-2.0); Blast Cells 0; Promyelocytes % 0; Reactive Lymphocytes 0
[2024-08-26 04:42] LABS: Alanine Aminotransferase 32 U/L (7-40); Anion Gap 14 (5-15); BUN/Creatinine Ratio 14.3 (10.0-20.0); Carbon Dioxide 22 mmol/L (20-31); Chloride 98 mmol/L (98-107); Potassium 3.8 mmol/L (3.5-5.1); Total Protein 5.8 g/dL (5.7-8.2)
[2024-08-26 04:43] LABS: Alkaline Phosphatase 506 U/L (46-116); Aspartate Aminotransferase 41 U/L (13-40); Bilirubin, Total 0.4 mg/dL (0.2-1.0); Glucose 285 mg/dL (74-106); Magnesium 2.7 mg/dL (1.6-2.6); Phosphorus 4.3 mg/dL (2.4-5.1); Sodium 134 mmol/L (136-145)
[2024-08-26 04:44] LABS: Blood Urea Nitrogen 106 mg/dL (9-23)
[2024-08-26 05:07] LABS: Band Neutrophils % (manual) 6; Eosinophils % (manual) 4 (0-7); Lymphocytes % (manual) 15 (10.0-50.0); Metamyelocytes % 3; Monocytes % (manual) 4 (0-12); Myelocytes % 3; Platelet Estimate Adequate
[2024-08-26] MEDS: SODIUM CHL 0.9% 1000 ML BAG XX ONE (07:00)
[2024-08-26] MEDS: ALBUMIN 25% 100 ML IV PRN (07:00)
--- NOTE | 2024-08-26 09:24 | DVHPN2 ---
Subjective Patient is intubated and sedated Reviewed: Care Plan, H&P, Labs, Medications, Previous Orders Changes from previous H/P or p: No Changes General: Per HPI; No Fatigue Eyes: No Pain, No Vision change, No Conjunctivae inflammation, No Eyelid inflammation, No Other, No Redness ENT: No Ear pain, No Ear discharge, No Nose pain, No Nose discharge, No Nose congestion, No Mouth pain, No Mouth swelling, No Throat pain, No Throat swelling, No Other Cardiovascular: No Chest Pain, No Palpitations, No Orthopnea, No Paroxysmal Noc. Dyspnea, No Edema, No Lt Headedness, No Other Respiratory: No Cough, No Dry, No Shortness of breath, No SOB with excertion, No Wheezing, No Hemoptysis, No Pleuritic Pain, No Sputum, No Other Gastrointestinal: Nausea, Vomiting; No Abdominal Pain, No Diarrhea; C onstipation; No Melena, No Hematochezia, No Other Genitourinary: No Dysuria, No Frequency, No Incontinence, No Hematuria, No Retention, No Other Musculoskeletal: No other, No neck pain, No shoulder pain, No arm pain, No back pain, No hand pain, No leg pain, No foot pain Skin: No Rash, No Lesions, No Jaundice, No Bruising, No Other Objective Vitals Vital Signs Date Time Temp Pulse Resp B/P (MAP) Pulse Ox O2 Delivery O2 Flow Rate FiO2 08/26/24 08:35 98.4 104 14 122/28 98.4 08/26/24 07:20 92 35 08/26/24 06:00 Mechanical Ventilator+ Intake/Output Intake and Output 08/26/24 07:00 Intake Total 3080.857 ml Output Total 210 ml Balance 2870.857 ml Intake Oral 60 ml IV Total 2420.857 ml Blood Product 300 ml Other 300 ml Output Urine Total 100 ml Gastric Drainage Total 100 ml Other 10 ml General Appearance: Alert, Oriented X3, Cooperative, moderate distress, Other (Chemically sedated) HEENT: Atraumatic, PERRLA Lungs: Other (Bilateral rhonchi. Mechanical ventilation) Cardiovascular: Normal S1, Normal S2 Musculoskeletal: Normal sensory function, Normal motor function Neuro: Other (Unable to assess) Skin: Dry, Intact Psych/Mental Status: Other (Unable to assess) Medications Current Medications Medications Dose Ordered Sig/Nikki Route Start Time Stop Time Status Last Admin Dose Admin Ondansetron HCl 4 mg Q4HP PRN IV 08/19/24 13:30 Enoxaparin Sodium 30 mg DAILY SC 08/20/24 10:00 Hold 08/25/24 11:03 30 MG Nitroglycerin 0.4 mg Q5MINP PRN SL 08/19/24 13:30 Morphine Sulfate 2 mg Q30M PRN IV 08/19/24 13:30 Diagnostic Test (Pha) 1 strip ACHS 08/19/24 17:00 Cancel Norepinephrine Bitartrate 250 ml @ 3.75 mls/hr Q24H IV 08/19/24 17:15 Cancel Midazolam HCl 50 ml @ 1 mls/hr Q24H IV 08/19/24 17:15 08/26/24 07:32 9 MLS/HR Fentanyl Citrate 250 ml @ 2.5 mls/hr Q24H IV 08/19/24 17:15 08/26/24 05:04 20 MLS/HR Ipratropium [place] 0.5 mg Q6HR NEB 08/19/24 18:00 08/26/24 05:57 0.5 MG Albuterol 2.5 mg Q6HR NEB 08/19/24 18:00 08/26/24 05:57 2.5 MG Diagnostic Test (Pha) 1 strip IQ4HR 08/19/24 20:00 08/26/24 07:49 1 STRIP Insulin Human Regular IQ4HR SC 08/19/24 20:00 08/26/24 07:54 4 UNITS Dextrose 50 ml UD PRN IV 08/19/24 19:15 Pantoprazole Sodium 40 mg BID IV 08/20/24 22:00 08/25/24 21:48 40 MG Bisacodyl 10 mg DAILYP PRN ND 08/20/24 11:15 Acetaminophen 650 mg Q6HP PRN ND 08/21/24 01:45 08/23/24 03:36 650 MG Sucralfate 1 gm QID@0600,1130,1700,2200 GT 08/21/24 11:30 08/26/24 05:46 1 GM Metoclopramide HCl 10 mg Q8HR GT 08/21/24 14:00 08/26/24 05:46 10 MG Norepinephrine Bitartrate 32 mg/ Sodium Chloride 250 ml @ 0.938 mls/ hr Q24H IV 08/21/24 16:30 08/25/24 08:00 0.938 MLS/HR Fluconazole 100 ml @ 100 mls/hr DAILY IV 08/24/24 10:00 08/25/24 11:01 100 MLS/HR Amino Acids 0 ml @ 0 mls/hr PER PHARMACY IV 08/24/24 09:00 Meropenem 50 ml @ 17 mls/hr DAILY IV 08/24/24 10:00 08/25/24 11:02 17 MLS/HR Sodium Chloride 60 meq/Sodium Acetate 40 meq/ Potassium Chloride 40 meq/ Potassium Acetate 40 meq/ Multivitamins 10 ml/Chromium/ Copper/Manganese/ Zinc 1 ml/Insulin Human Regular 16 units/Amino Acids/ Dextrose 1,886.16 ml @ 78 mls/hr [id number] IV 08/25/24 22:00 08/26/24 21:59 08/25/24 21:53 78 MLS/HR Epoetin Aquilino-epbx 10,000 unit TUTHSA@2100 [place] 08/26/24 21:00 Albumin Human 100 ml @ 100 mls/hr PRN PRN IV 08/26/24 06:45 08/26/24 07:55 100 MLS/HR Lactulose 30 ml Q4H GT 08/26/24 10:00 UNV Insulin Glargine 10 units DAILY@1000 SC 08/26/24 10:00 UNV Enoxaparin Sodium 30 mg DAILY SC 08/27/24 10:00 UNV Laboratory Results Laboratory Tests 08/26/24 03:00 Chemistry Test 08/26/24 03:00 Albumin 3.0 g/dL (3.2-4.8) L Calcium Level 8.0 mg/dL (8.7-10.4) L Magnesium Level 2.7 mg/dL (1.6-2.6) H Phosphorus Level 4.3 mg/dL (2.4-5.1) Total Protein 5.8 g/dL (5.7-8.2) Coagulation Test 08/25/24 15:55 Prothrombin Time 11.9 sec (9.3-11.8) H Prothrombin Time INR 1.14 (0.9-1.15) Activated Partial Thromboplast Time 33.3 SEC (24.5-34.5) LFT Test 08/26/24 03:00 Alanine Aminotransferase (ALT) 32 U/L (7-40) Alkaline Phosphatase 506 U/L (46-116) H Aspartate Amino Transferase (AST) 41 U/L (13-40) H Total Bilirubin 0.4 mg/dL (0.2-1.0) Urinalysis Test 08/19/24 11:25 Urine Color Colorless (Yellow) Urine Clarity Ex.turbid (Clear) Urine pH 6.5 (5.0-9.0) Urine Specific [place] 1.017 (1.001-1.035) Urine Protein 1+ (Negative) H Urine Ketones Negative (Negative) Urine Blood 1+ /uL (Negative) H Urine Nitrite Negative (Negative) Urine Bilirubin Negative (Negative) Urine Urobilinogen Normal mg/dL (Negative) Urine Leukocyte Esterase Trace /uL (Negative) Urine RBC 5 /hpf (0 - 3) Urine Microscopic WBC 16 /HPF (0-3) H Urine Squamous Epithelial Cells Few /hpf (<5) Urine Renal Epithelial Cells Few /hpf (None Seen) Urine Amorphous Crystals Few /hpf (None Seen) Urine Bacteria Few /hpf (None Seen) H Urine Mucus Few (None Seen) Urine Sperm Present /hpf (None Seen) Urine Creatinine 77.13 mg/dL (30.0-125.0) Urine Sodium 15 mmol/L (40-220) L Urine Glucose 3+ mg/dL (Normal) H Blood Gas Results Test 08/25/24 15:56 Arterial Blood pH 7.371 (7.350-7.450) FiO2 % 65.0 Microbiology Microbiology Date/Time Source Procedure Growth Status 08/23/24 22:30 Bronchial Washings Gram Stain Pending Resulted 08/23/24 22:30 Bronchial Washings Respiratory Culture - Preliminary Resulted 08/20/24 22:05 Nose MRSA Screen - Final Complete 08/19/24 11:25 Voided Urine Urine Culture - Final Complete 08/19/24 11:00 Blood Blood Culture - Final NO GROWTH AFTER 5 DAYS OF INCUBATION. Complete Labs and/or images reviewed: Labs reviewed by me, Image(s) reviewed by me Assessment/Plan Assessment/Plan Impression: -acute hypoxic respiratory failure with mechanical ventilation -probable aspiration pneumonitis/pneumonia -sepsis with shock -obesity -rule out GI bleed -diabetes mellitus with severe hyperglycemia -hyponatremia -hypochloremia -hypokalemia -acute kidney injury, vasomotor nephropathy Plan: -events: Pt. take to OR yesterday afternoon for removal and repair of HD cath placed in Carotid Artery. Site benign with FAIZA drain. O2 requirements improved. Decrease Peep. No BM-Alter Bowel regimen. BS uncontrolled. Add Lantus 10units. -Vent settings: PC 20/12, 35, Decrease peep to 10 -Change abx: Meropenem, Diflucan -nephrology consultation: Recommendations reviewed -NG to low intermittent suction -Continue TPN -continue Protonix 40 mg IV twice a day, Carafate 1 g q.i.d. -Bowel Regimen -RISS -repeat labs, chest x-ray, ABG in a.m. -GI consultation recommendations reviewed. Critical care time spent with patient discussing and formulating plan of care: 90 minutes. This does not include time spent performing procedures. This medical document was created using an electronic medical record system with [employer] dictation system. Although this document has been carefully reviewed, there may still be some phonetic and typographical errors. These areas are purely typographical due to imperfections of the software programs, and do not reflect any compromise in the patient's medical care. Plan discussed with: Patient, Other (RN) My Orders Orders - LION ORELLANA F[employer]ER LOADER Procedure Category Date Status Time Amino Acid PHA 08/25/24 In Process Infusion... W/Sodium 22:00 Tpn Per Pharmacy [facility] 08/25/24 In Process 22:00 Abg W/ Co-Ox RT 08/25/24 Logged 15:00 Consult CONS 08/25/24 Transmitted Vascular/Endovascular 14:05 Platelet Monitoring ROHINI 08/25/24 In Process 14:24 Heparin Per ROHINI 08/25/24 In Process Standardized Proce 14:24 Discontinue All Im ROHINI 08/25/24 In Process Injections 14:24 Lactulose Oral PHA 08/26/24 Logged 10:00 Kub Abdomen Single XY 08/26/24 Logged View 09:12 Insulin Lantus PHA 08/26/24 Logged (Glargine) (Lantus) 10:00 Enoxaparin Sodium PHA 08/27/24 Logged (Lovenox) 10:00 Ventilator Orders RT 08/26/24 Transmitted 09:12 Date of Service: Aug 26, 2024 Billing Provider: LION ORELLANA NP Common Visit Codes: [id number] CARE 30-74 MIN LION ORELLANA NP Aug 26, 2024 09:24
[2024-08-26] MEDS: LACTULOSE 20Gm/30ML SOLN GT SCH (10:28)
[2024-08-26] MEDS: INSULIN LANTUS (GLARGINE) 1 /0.01ml (100units/ml) SC SCH (10:36)
[2024-08-26] MEDS: BISACODYL 10 MG RECT SUPP PR PRN (10:38)
--- NOTE | 2024-08-26 11:35 | DVH ---
Date: 08/26/2024 10:13 AM Examination: XY KUB ABDOMEN SINGLE VIEW History: obstipation Comparison: None TECHNIQUE: Frontal views of the abdomen was obtained. FINDINGS: Enteric tube tip projects over the expected region of the stomach. Multiple calcific densities proje ct over the right upper quadrant measuring up to 1.5 cm. Paucity of bowel gas limits evaluation. The lung bases are unremarkable. No acute osseous abnormality identified. Right central venous catheter tip projects over the pelvis. IMPRESSION: Paucity of bowel gas limits evaluation.
[2024-08-26] MEDS: ACETYLCYSTEINE 10 %(100MG/ML) SOL 4ML NEB SCH (11:59)
[2024-08-26 14:35] LABS: Base Excess -1.3 mmol/L (-2.0-3.0)
[2024-08-26] MEDS: ENOXAPARIN SOD 30 MG/0.3 ML SYRINGE SC ONE (15:17)
--- NOTE | 2024-08-26 17:39 | DVHPN2 ---
Progress Note Date Seen: Aug 26, 2024 Medical Necessity Reason Pt with a Central, PICC or Fol: Yes The following are medically ne: Central Line, Chavez Catheter Reason for chavez catheter: Strict I&O Subjective Patient reports: Other (Hd today tolerated, recieved 2 units PRBC in last 24hrs) Review of Systems: Deferred Objective vital signs Vital Sign Date Time Temp Pulse Resp B/P (MAP) Pulse Ox O2 Delivery O2 Flow Rate FiO2 08/26/24 15:38 99 20 106/56 (73 93 35 08/26/24 14:00 Mechanical Ventilator+ 08/26/24 12:00 98.8 98.8 Total Intake and Output 08/25/24 08/25/24 08/26/24 15:00 23:00 07:00 Intake Total 1033.750 ml 924.236 ml 1231.746 ml Output Total 210 ml Balance 1033.750 ml 924.236 ml 1021.746 ml medications Current Medications Medications Dose Ordered Sig/Nikki Route Start Time Stop Time Status Last Admin Dose Admin Ondansetron HCl 4 mg Q4HP PRN IV 08/19/24 13:30 Nitroglycerin 0.4 mg Q5MINP PRN SL 08/19/24 13:30 Morphine Sulfate 2 mg Q30M PRN IV 08/19/24 13:30 Diagnostic Test (Pha) 1 strip ACHS 08/19/24 17:00 Cancel Norepinephrine Bitartrate 250 ml @ 3.75 mls/hr Q24H IV 08/19/24 17:15 Cancel Midazolam HCl 50 ml @ 1 mls/hr Q24H IV 08/19/24 17:15 08/26/24 14:00 9 MLS/HR Fentanyl Citrate 250 ml @ 2.5 mls/hr Q24H IV 08/19/24 17:15 08/26/24 05:04 20 MLS/HR Ipratropium [place] 0.5 mg Q6HR NEB 08/19/24 18:00 08/26/24 11:59 0.5 MG Albuterol 2.5 mg Q6HR NEB 08/19/24 18:00 08/26/24 11:59 2.5 MG Diagnostic Test (Pha) 1 strip IQ4HR 08/19/24 20:00 08/26/24 17:29 1 STRIP Insulin Human Regular IQ4HR SC 08/19/24 20:00 08/26/24 17:31 16 UNITS Dextrose 50 ml UD PRN IV 08/19/24 19:15 Pantoprazole Sodium 40 mg BID IV 08/20/24 22:00 08/26/24 10:29 40 MG Bisacodyl 10 mg DAILYP PRN CA 08/20/24 11:15 08/26/24 10:38 10 MG Acetaminophen 650 mg Q6HP PRN CA 08/21/24 01:45 08/23/24 03:36 650 MG Sucralfate 1 gm QID@0600,1130,1700,2200 GT 08/21/24 11:30 08/26/24 17:29 1 GM Metoclopramide HCl 10 mg Q8HR GT 08/21/24 14:00 08/26/24 13:59 10 MG Norepinephrine Bitartrate 32 mg/ Sodium Chloride 250 ml @ 0.938 mls/ hr Q24H IV 08/21/24 16:30 08/25/24 08:00 0.938 MLS/HR Fluconazole 100 ml @ 100 mls/hr DAILY IV 08/24/24 10:00 08/26/24 10:28 100 MLS/HR Amino Acids 0 ml @ 0 mls/hr PER PHARMACY IV 08/24/24 09:00 Meropenem 50 ml @ 17 mls/hr DAILY IV 08/24/24 10:00 08/26/24 10:29 17 MLS/HR Sodium Chloride 60 meq/Sodium Acetate 40 meq/ Potassium Chloride 40 meq/ Potassium Acetate 40 meq/ Multivitamins 10 ml/Chromium/ Copper/Manganese/ Zinc 1 ml/Insulin Human Regular 16 units/Amino Acids/ Dextrose 1,886.16 ml @ 78 mls/hr [id number] IV 08/25/24 22:00 08/26/24 21:59 08/25/24 21:53 78 MLS/HR Epoetin Aquilino-epbx 10,000 unit TUTHSA@2100 [place] 08/26/24 21:00 Albumin Human 100 ml @ 100 mls/hr PRN PRN IV 08/26/24 06:45 08/26/24 07:55 100 MLS/HR Lactulose 30 ml Q4H GT 08/26/24 10:00 08/26/24 14:00 30 ML Insulin Glargine 10 units DAILY@1000 SC 08/26/24 10:00 08/26/24 10:36 10 UNITS Enoxaparin Sodium 30 mg DAILY SC 08/27/24 10:00 Acetylcysteine 100 mg Q6HR NEB 08/26/24 12:00 08/26/24 11:59 100 MG Fat Emulsion Intravenous 50 ml/ Sodium Chloride 100 meq/Sodium Acetate 20 meq/ Potassium Acetate 70 meq/Calcium Gluconate 2.3 meq/ Multivitamins 10 ml/Chromium/ Copper/Manganese/ Zinc 1 ml/Insulin Human Regular 28 units/Amino Acids/ Dextrose 1,836.2262 ml @ 76 mls/hr [id number] IV 08/26/24 22:00 08/27/24 21:59 Examination: GENERAL:Abnormal, LUNGS:Abnormal, CVS:Abnormal, SKIN:Abnormal laboratory and microbiology Laboratory Tests 08/26/24 03:00 Test 08/26/24 03:00 Range/Units Serum Glucose 285 #H 74-106 mg/dL Microbiology Date/Time Source Procedure Growth Status 08/23/24 22:30 Bronchial Washings Gram Stain - Final Resulted 08/23/24 22:30 Respiratory Culture - Preliminary Presumptive Mary albicans Resulted 08/20/24 22:05 Nose MRSA Screen - Final Complete 08/19/24 11:25 Voided Urine Urine Culture - Final Complete 08/19/24 11:00 Blood Blood Culture - Final NO GROWTH AFTER 5 DAYS OF INCUBATION. Complete Problem List/Assessment/Plan Problem List/Assessment/Plan Acute kidney injury in the setting of hypotension and volume depletion -> ATN Metabolic alkalosis in the setting of vomiting-> chloride depletion Severe hyperglycemia Hyponatremia in the setting of hyperglycemia hyperosmolar state Uncontrolled diabetes acute respiratory failure due to aspiration pneumonia? carotid artery injury due to temp HD cath s/p vascular surgery repair has fem tunnel HD catheter placed by vascular HD today, aggressive fluid removal breathing improved slightly Will schedule more frequent treatments strict I/O Patient is critically ill critical care time spent 70 minutes Guarded prognosis Plan discussed with: Other My Orders My Orders Orders - MERLIN ROBLES MD Procedure Category Date Status Time Communication Order ORDERS 08/25/24 Transmitted 20:14 Hemodialysis Orders ORDERS 08/26/24 Transmitted 07:00 Dialysis Nursing ROHINI 08/26/24 In Process Message 07:00 Document Fluid Input ROHINI 08/26/24 In Process And Outpu 07:00 Epoetin Aquilino-Epbx [facility] 08/26/24 In Process (Retacrit) 21:00 Albumin 25% (Albutein) [facility] 08/26/24 In Process 06:45 Dietary Evaluation Review Recommendations by RD: Protein Supplementation, PPN/TPN Comments: Pt is at high risk of malnutrition due to prolonged vomiting leading to inadequate nutrient intake and hypermetabolic state secondary to acute inflammation. Recommendation: 1) Start PN/TPN per pharmacy 2) If GI is accessible, consider TF Pivot 1.5Cal @ 60ml/hr along with Pro-stat 1 pk TID. Start @ 10ml/hr, increase 10ml/hr Q4H until goal rate is reached. Advance TF rate slowly and gradually to prevent Refeeding syndrome. Water Flush 50ml Q4H if allowed. TF Provision --- TF at goal volume to provide 1440 ml total volume, 2160 kcal (+300 kcal via Pro-stat = 2460 kcal), 135 gm pro (+45 gm via ProStat = 180 gm), 1093 ml H20 (meets 100% est. kcal needs, 100% est. protein needs) 3) Monitor Potassium, Phosphate, Magnesium for Refeeding syndrome 4) Des 1 pk daily For DTI 5) Continue current plan of care Expected Outcomes/Goals: Blood glucose to improve Nutrient intake to meet at least 75% estimated needs FU 2-3 days Food and Nutrition Intake (Mod: <75% est energy req 7days MERLIN ROBLES MD Aug 26, 2024 17:39
[2024-08-26] MEDS: TPN PER PHARMACY IV NR (21:25)
[2024-08-26] MEDS: EPOETIN ALFA-EPBX 10,000 UNIT/1ML VIAL SC SCH (21:31)
--- NOTE | 2024-08-26 22:24 | DVHPN2 ---
Progress Note - Dictate Date Seen: Aug 26, 2024 Medical Necessity Reason Pt with a Central, PICC or Fol: Yes The following are medically ne: Central Line, Chavez Catheter Reason for chavez catheter: Strict I&O Subjective Patient seen and examined at bedside. Sedated, intubated on mechanical ventilator. Overnight events reviewed. vital signs Vital Sign Date Time Temp Pulse Resp B/P (MAP) Pulse Ox O2 Delivery O2 Flow Rate FiO2 08/26/24 20:10 96 19 101/49 (66 94 35 08/26/24 20:00 Mechanical Ventilator+ 08/26/24 16:00 99.3 99.3 Total Intake and Output 08/25/24 08/25/24 08/26/24 15:00 23:00 07:00 Intake Total 1033.750 ml 924.236 ml 1231.746 ml Output Total 210 ml Balance 1033.750 ml 924.236 ml 1021.746 ml medications Current Medications Medications Dose Ordered Sig/Nikki Route Start Time Stop Time Status Last Admin Dose Admin Ondansetron HCl 4 mg Q4HP PRN IV 08/19/24 13:30 Nitroglycerin 0.4 mg Q5MINP PRN SL 08/19/24 13:30 Morphine Sulfate 2 mg Q30M PRN IV 08/19/24 13:30 Diagnostic Test (Pha) 1 strip ACHS 08/19/24 17:00 Cancel Norepinephrine Bitartrate 250 ml @ 3.75 mls/hr Q24H IV 08/19/24 17:15 Cancel Midazolam HCl 50 ml @ 1 mls/hr Q24H IV 08/19/24 17:15 08/26/24 19:30 9 MLS/HR Fentanyl Citrate 250 ml @ 2.5 mls/hr Q24H IV 08/19/24 17:15 08/26/24 19:39 20 MLS/HR Ipratropium [place] 0.5 mg Q6HR NEB 08/19/24 18:00 08/26/24 18:18 0.5 MG Albuterol 2.5 mg Q6HR NEB 08/19/24 18:00 08/26/24 18:18 2.5 MG Diagnostic Test (Pha) 1 strip IQ4HR 08/19/24 20:00 08/26/24 20:09 1 STRIP Insulin Human Regular IQ4HR SC 08/19/24 20:00 08/26/24 20:09 16 UNITS Dextrose 50 ml UD PRN IV 08/19/24 19:15 Pantoprazole Sodium 40 mg BID IV 08/20/24 22:00 08/26/24 21:36 40 MG Bisacodyl 10 mg DAILYP PRN OK 08/20/24 11:15 08/26/24 10:38 10 MG Acetaminophen 650 mg Q6HP PRN OK 08/21/24 01:45 08/23/24 03:36 650 MG Sucralfate 1 gm QID@0600,1130,1700,2200 GT 08/21/24 11:30 08/26/24 21:36 1 GM Metoclopramide HCl 10 mg Q8HR GT 08/21/24 14:00 08/26/24 21:36 10 MG Norepinephrine Bitartrate 32 mg/ Sodium Chloride 250 ml @ 0.938 mls/ hr Q24H IV 08/21/24 16:30 08/25/24 08:00 0.938 MLS/HR Fluconazole 100 ml @ 100 mls/hr DAILY IV 08/24/24 10:00 08/26/24 10:28 100 MLS/HR Amino Acids 0 ml @ 0 mls/hr PER PHARMACY IV 08/24/24 09:00 Meropenem 50 ml @ 17 mls/hr DAILY IV 08/24/24 10:00 08/26/24 10:29 17 MLS/HR Epoetin Aquilino-epbx 10,000 unit TUTHSA@2100 [place] 08/26/24 21:00 08/26/24 21:31 10,000 UNIT Albumin Human 100 ml @ 100 mls/hr PRN PRN IV 08/26/24 06:45 08/26/24 07:55 100 MLS/HR Lactulose 30 ml Q4H GT 08/26/24 10:00 08/26/24 21:36 30 ML Insulin Glargine 10 units DAILY@1000 SC 08/26/24 10:00 08/26/24 10:36 10 UNITS Enoxaparin Sodium 30 mg DAILY SC 08/27/24 10:00 Acetylcysteine 100 mg Q6HR NEB 08/26/24 12:00 08/26/24 18:18 100 MG Fat Emulsion Intravenous 50 ml/ Sodium Chloride 100 meq/Sodium Acetate 20 meq/ Potassium Acetate 70 meq/Calcium Gluconate 2.3 meq/ Multivitamins 10 ml/Chromium/ Copper/Manganese/ Zinc 1 ml/Insulin Human Regular 28 units/Amino Acids/ Dextrose 1,836.2262 ml @ 76 mls/hr [id number] IV 08/26/24 22:00 08/27/24 21:59 08/26/24 21:25 76 MLS/HR objective Gen.: Patient lying in bed in medical ICU. Sedated, intubated on mechanical ventilator. Head: Normocephalic, atraumatic. Eyes: PERRLA. Ears: Normal external anatomy. Throat: Endotracheal tube and orogastric tube in place. Neck: Supple, trachea midline. Chest: Transmitted breath sounds bilaterally. Decreased air entry bilaterally. No wheezing. Bibasilar crackles. Cardiovascular: Positive S1, positive S2. Regular rate and rhythm. Abdomen: Positive bowel sounds in all 4 quadrants. Soft, nontender, nondistended. : Chavez in place. Normal external genitalia. Rectal: Deferred. Skin: Warm, dry. Intact. Extremities: 2+ radial pulses bilaterally. No lower extremity edema. Neuro: Sedated laboratory and microbiology Laboratory Tests 08/26/24 03:00 Test 08/26/24 03:00 Range/Units Serum Glucose 285 #H 74-106 mg/dL Assessment/Plan Impression: Acute hypoxic respiratory failure On mechanical ventilator Gastrointestinal hemorrhage, upper Aspiration pneumonia MAGDALENA mucous plug Obesity BMI 35.9 Events: Remains on vent support Vent settings: PCV mode; respiratory rate 18; I-Pressure 18; I-time 0.8, PEEP 12 -->10, FiO2 65-->35% Improved PEEP, FiO2 requirements. Taper PEEP to 8 Sedated on Versed, Fentanyl Off Levophed, hemodynamically stable. S/p hemodialysis - removed [address] S/p PRBC transfusion Monitor hemoglobin - currently 7.9 g/dL HD per Nephrology Monitor renal function Monitor electrolytes. Supplement as necessary. Nephrology recommendations appreciated. Continue bronchodilators/Mucomyst Continue antibiotics. Continue antifungals Follow up cultures TPN for nutritional support ABG reviewed, compensated CXR reviewed. Multifocal airspace disease. Devices in place. Accu-Cheks, ISS s/p vascular surgery for carotid repair. Monitor FAIZA drain output. S/p bronchoscopy w/ BAL on 08/23/24 -cleared mucous plugging from L1-L10 and R1- R10 See separate procedure note for details. Labs and imaging reviewed. Rest of plan as noted below Plan: s/p intubation on mechanical ventilator. Placed on PC mode due to high peak pressure Vent settings: PCV mode; respiratory rate 18; I-Pressure 18; I-time 0.8, PEEP 10, FiO2 35% Taper PEEP to 8 Titrate FIO2 to keep O2 saturation above 90%. VAP bundle. Daily ABG and CXR while intubated Sedate for ventilator synchrony Patient underwent therapeutic bronchoscopy on 08/19/24 with clearing of mucous plugging. Aspirated coffee ground material removed from within the bilateral lungs. See separate procedure note for details. Continue bronchodilators. Continue antibiotics. Pressors as necessary for hemodynamic support Titrate to keep mean arterial pressure greater than 65 mmHg. Monitor hemoglobin GI recs appreciated IV fluids with NS Monitor renal function Monitor electrolytes. Supplement as necessary. Monitor ins and outs. Accu-Cheks, ISS GI prophylaxis - Protonix. DVT prophylaxis - Lovenox. Prognosis: Poor given patient's multiple co-morbidities. Condition: Critical Rest of plan per hospitalist and other consultants. A total of 35 minutes of critical care time was spent reviewing the patient record, examining the patient, making a diagnostic and therapeutic plan, discussing this plan with the medical personnel, following up on diagnostic studies and following the patient for clinical stability excluding any and all procedures. At least 50% of this time was spent in direct, [id number] contact. Thank you, DEON Morrison, for allowing me to participate in this patient's care. Further recommendations will depend on the patient's clinical course. Please do not hesitate to contact me if you have any questions or concerns. This medical document was created using an electronic medical record system with [employer] dictation system. Although these documentations are being carefully reviewed, there may still be some phonetic and typographical changes. The errors are purely typographical, due to imperfection on the software program, and do not reflect any compromise in the patient's medical care. Dietary Evaluation Review Recommendations by RD: Protein Supplementation, PPN/TPN Comments: Pt is at high risk of malnutrition due to prolonged vomiting leading to inadequate nutrient intake and hypermetabolic state secondary to acute inflammation. Recommendation: 1) Start PN/TPN per pharmacy 2) If GI is accessible, consider TF Pivot 1.5Cal @ 60ml/hr along with Pro-stat 1 pk TID. Start @ 10ml/hr, increase 10ml/hr Q4H until goal rate is reached. Advance TF rate slowly and gradually to prevent Refeeding syndrome. Water Flush 50ml Q4H if allowed. TF Provision --- TF at goal volume to provide 1440 ml total volume, 2160 kcal (+300 kcal via Pro-stat = 2460 kcal), 135 gm pro (+45 gm via ProStat = 180 gm), 1093 ml H20 (meets 100% est. kcal needs, 100% est. protein needs) 3) Monitor Potassium, Phosphate, Magnesium for Refeeding syndrome 4) Des 1 pk daily For DTI 5) Continue current plan of care Expected Outcomes/Goals: Blood glucose to improve Nutrient intake to meet at least 75% estimated needs FU 2-3 days Food and Nutrition Intake (Mod: <75% est energy req 7days Plan discussed with: Other (MARYURI Spears) Critical Care Time(min): 35 LINO CARRION MD Aug 26, 2024 22:24
[2024-08-27] VITALS (120 sets, daily range): BP systolic 83–150; BP diastolic 42–80; PULSE 80–115; RESP 10–30; TEMP 98.1–99.7; O2SAT 88–100
[2024-08-27 04:17] LABS: Hematocrit 24.5 % (41.0-53.0); Hemoglobin 8.3 g/dL (13.5-17.5); Mean Corpuscular Hemoglobin 29.4 pg (28.0-32.0); Mean Corpuscular Volume 86.5 fL (80.0-100.0); Platelet Count (auto) 159 10^3/uL (140-450); Red Blood Cells 2.83 10^6/uL (4.5-5.90)
[2024-08-27 04:20] LABS: White Blood Cell 31.7 10^3/uL (4.4-10.8)
[2024-08-27 04:22] LABS: Basophils % (manual) 0 (0.0-2.0); Blast Cells 0; Promyelocytes % 0; Reactive Lymphocytes 0
[2024-08-27 04:31] LABS: Alanine Aminotransferase 36 U/L (7-40); Albumin 3.3 g/dL (3.2-4.8); Anion Gap 13 (5-15); BUN/Creatinine Ratio 14.4 (10.0-20.0); Carbon Dioxide 24 mmol/L (20-31); Magnesium 2.2 mg/dL (1.6-2.6); Sodium 139 mmol/L (136-145); Total Protein 6.2 g/dL (5.7-8.2)
[2024-08-27 04:32] LABS: Alkaline Phosphatase 602 U/L (46-116); Aspartate Aminotransferase 41 U/L (13-40); Bilirubin, Total 0.5 mg/dL (0.2-1.0); Calcium 8.2 mg/dL (8.7-10.4); Chloride 102 mmol/L (98-107); Glucose 159 mg/dL (74-106); Triglycerides 166 mg/dL (< 150)
[2024-08-27 04:33] LABS: Blood Urea Nitrogen 86 mg/dL (9-23); Phosphorus 1.5 mg/dL (2.4-5.1)
[2024-08-27] MEDS: PROPOFOL 100 ML IV SCH (04:39)
[2024-08-27 04:45] LABS: Band Neutrophils % (manual) 4; Eosinophils % (manual) 2 (0-7); Lymphocytes % (manual) 7 (10.0-50.0); Metamyelocytes % 1; Monocytes % (manual) 3 (0-12); Myelocytes % 1
[2024-08-27 04:46] LABS: Platelet Estimate Adequate
--- NOTE | 2024-08-27 05:54 | DVH ---
EXAM: XR Chest, 1 View CLINICAL INDICATION: PNA TECHNIQUE: Frontal view of the chest. COMPARISON: XY CHEST PORTABLE on DOS: 08/26/24, XY CHEST PORTABLE on DOS: 08/25/24, XY CHEST PORTABLE on DOS: 08/25/24, XY CHEST PORTABLE on DOS: 08/24/24, XY CHEST PORTABLE on DOS: 08/23/24 FINDINGS: LUNGS AND PLEURAL SPACES: Pulmonary congestion and edema. Superimposed pneumonia can not be exclud ed. No pneumothorax. HEART: Unremarkable. No cardiomegaly. MEDIASTINUM: Unremarkable. Normal mediastinal contour. BONES/JOINTS: Unremarkable. No acute fracture. TUBES, LINES AND DEVICES: Right internal jugular central venous catheter tip in the superior vena c leslie. The endotracheal tube (ETT) is in satisfactory position. Enteric tube tip cannot be seen but i s below the diaphragm. OTHER FINDINGS: . . IMPRESSION: Pulmonary congestion and edema. Superimposed pneumonia can not be excluded.
[2024-08-27] MEDS: SODIUM CHL 0.9% 1000 ML BAG XX ONE (06:25)
[2024-08-27 07:10] LABS: Base Excess -0.9 mmol/L (-2.0-3.0)
--- NOTE | 2024-08-27 08:20 | DVHPN2 ---
Progress Note Date Seen: Aug 27, 2024 Has the PT tested + for MRSA If YES, has PT been informed?: No Medical Necessity Reason Pt with a Central, PICC or Fol: Yes The following are medically ne: Central Line, Chavez Catheter Reason for chavez catheter: Strict I&O Subjective Patient reports: No new complaints Changes from previous H/P or p: No Changes Objective vital signs Vital Sign Date Time Temp Pulse Resp B/P (MAP) Pulse Ox O2 Delivery O2 Flow Rate FiO2 08/27/24 08:05 95/49 08/27/24 07:25 92 24 96 50 08/27/24 06:00 Mechanical Ventilator+ 08/27/24 04:15 99.5 99.5 Total Intake and Output 08/26/24 08/26/24 08/27/24 15:00 23:00 07:00 Intake Total 1352.625 ml 1012.0 ml 970.8 ml Output Total 140 ml 305 ml Balance 1352.625 ml 872.0 ml 665.8 ml medications Current Medications Medications Dose Ordered Sig/Nikki Route Start Time Stop Time Status Last Admin Dose Admin Ondansetron HCl 4 mg Q4HP PRN IV 08/19/24 13:30 Nitroglycerin 0.4 mg Q5MINP PRN SL 08/19/24 13:30 Morphine Sulfate 2 mg Q30M PRN IV 08/19/24 13:30 Diagnostic Test (Pha) 1 strip ACHS 08/19/24 17:00 Cancel Norepinephrine Bitartrate 250 ml @ 3.75 mls/hr Q24H IV 08/19/24 17:15 Cancel Midazolam HCl 50 ml @ 1 mls/hr Q24H IV 08/19/24 17:15 08/27/24 06:25 15 MLS/HR Fentanyl Citrate 250 ml @ 2.5 mls/hr Q24H IV 08/19/24 17:15 08/27/24 05:39 35 MLS/HR Ipratropium [place] 0.5 mg Q6HR NEB 08/19/24 18:00 08/27/24 06:16 0.5 MG Albuterol 2.5 mg Q6HR NEB 08/19/24 18:00 08/27/24 06:16 2.5 MG Diagnostic Test (Pha) 1 strip IQ4HR 08/19/24 20:00 08/27/24 07:54 1 STRIP Insulin Human Regular IQ4HR SC 08/19/24 20:00 08/27/24 07:54 4 UNITS Dextrose 50 ml UD PRN IV 08/19/24 19:15 Pantoprazole Sodium 40 mg BID IV 08/20/24 22:00 08/26/24 21:36 40 MG Bisacodyl 10 mg DAILYP PRN [place] 08/20/24 11:15 08/26/24 10:38 10 MG Acetaminophen 650 mg Q6HP PRN NE 08/21/24 01:45 08/23/24 03:36 650 MG Sucralfate 1 gm QID@0600,1130,1700,2200 GT 08/21/24 11:30 08/27/24 05:28 1 GM Metoclopramide HCl 10 mg Q8HR GT 08/21/24 14:00 08/27/24 05:28 10 MG Norepinephrine Bitartrate 32 mg/ Sodium Chloride 250 ml @ 0.938 mls/ hr Q24H IV 08/21/24 16:30 08/27/24 07:00 0.938 MLS/HR Fluconazole 100 ml @ 100 mls/hr DAILY IV 08/24/24 10:00 08/26/24 10:28 100 MLS/HR Amino Acids 0 ml @ 0 mls/hr PER PHARMACY IV 08/24/24 09:00 Meropenem 50 ml @ 17 mls/hr DAILY IV 08/24/24 10:00 08/26/24 10:29 17 MLS/HR Epoetin Aquilino-epbx 10,000 unit TUTHSA@2100 [place] 08/26/24 21:00 08/26/24 21:31 10,000 UNIT Albumin Human 100 ml @ 100 mls/hr PRN PRN IV 08/26/24 06:45 08/27/24 07:45 100 MLS/HR Lactulose 30 ml Q4H GT 08/26/24 10:00 08/27/24 05:28 30 ML Insulin Glargine 10 units DAILY@1000 SC 08/26/24 10:00 08/26/24 10:36 10 UNITS Enoxaparin Sodium 30 mg DAILY SC 08/27/24 10:00 Acetylcysteine 100 mg Q6HR NEB 08/26/24 12:00 08/27/24 06:16 100 MG Fat Emulsion Intravenous 50 ml/ Sodium Chloride 100 meq/Sodium Acetate 20 meq/ Potassium Acetate 70 meq/Calcium Gluconate 2.3 meq/ Multivitamins 10 ml/Chromium/ Copper/Manganese/ Zinc 1 ml/Insulin Human Regular 28 units/Amino Acids/ Dextrose 1,836.2262 ml @ 76 mls/hr [id number] IV 08/26/24 22:00 08/27/24 21:59 08/26/24 21:25 76 MLS/HR Propofol 100 ml @ 3.804 mls/ hr Q24H IV 08/27/24 04:30 08/27/24 04:39 3.804 MLS/HR Examination: GENERAL:Normal, HEENT:Normal (Left carotid incision healing well. FAIZA drain minimal drainage was removed today.), NECK:Normal, LUNGS:Normal, CVS:Normal, ABDOMEN:Normal, MSK:Normal, SKIN:Normal, NEURO:Normal, :Normal laboratory and microbiology Laboratory Tests 08/27/24 03:15 Test 08/27/24 03:15 Range/Units Serum Glucose 159 #H 74-106 mg/dL Microbiology Date/Time Source Procedure Growth Status 08/23/24 22:30 Bronchial Washings Gram Stain - Final Resulted 08/23/24 22:30 Respiratory Culture - Preliminary Presumptive Mary albicans Resulted 08/20/24 22:05 Nose MRSA Screen - Final Complete 08/19/24 11:25 Voided Urine Urine Culture - Final Complete 08/19/24 11:00 Blood Blood Culture - Final NO GROWTH AFTER 5 DAYS OF INCUBATION. Complete Problem List/Assessment/Plan Problem List/Assessment/Plan Postop day 2. Status post left carotid artery and internal jugular vein repair secondary to malposition dialysis catheter. FAIZA drain removed today. Continue current medical management await for neuro exam once able to be weaned off ventilator. Plan discussed with: Other (sister) Dietary Evaluation Review Recommendations by RD: Protein Supplementation, PPN/TPN Comments: Pt is at high risk of malnutrition due to prolonged vomiting leading to inadequate nutrient intake and hypermetabolic state secondary to acute inflammation. Recommendation: 1) Start PN/TPN per pharmacy 2) If GI is accessible, consider TF Pivot 1.5Cal @ 60ml/hr along with Pro-stat 1 pk TID. Start @ 10ml/hr, increase 10ml/hr Q4H until goal rate is reached. Advance TF rate slowly and gradually to prevent Refeeding syndrome. Water Flush 50ml Q4H if allowed. TF Provision --- TF at goal volume to provide 1440 ml total volume, 2160 kcal (+300 kcal via Pro-stat = 2460 kcal), 135 gm pro (+45 gm via ProStat = 180 gm), 1093 ml H20 (meets 100% est. kcal needs, 100% est. protein needs) 3) Monitor Potassium, Phosphate, Magnesium for Refeeding syndrome 4) Des 1 pk daily For DTI 5) Continue current plan of care Expected Outcomes/Goals: Blood glucose to improve Nutrient intake to meet at least 75% estimated needs FU 2-3 days Food and Nutrition Intake (Mod: <75% est energy req 7days KAILASH GUTIERREZ Jr., MD Aug 27, 2024 08:20
[2024-08-27] MEDS: ENOXAPARIN SOD 30 MG/0.3 ML SYRINGE SC SCH (09:51)
--- NOTE | 2024-08-27 09:59 | DVHPN2 ---
Subjective Patient is intubated and sedated Reviewed: Care Plan, H&P, Labs, Medications, Previous Orders Changes from previous H/P or p: No Changes General: Per HPI; No Fatigue Eyes: No Pain, No Vision change, No Conjunctivae inflammation, No Eyelid inflammation, No Other, No Redness ENT: No Ear pain, No Ear discharge, No Nose pain, No Nose discharge, No Nose congestion, No Mouth pain, No Mouth swelling, No Throat pain, No Throat swelling, No Other Cardiovascular: No Chest Pain, No Palpitations, No Orthopnea, No Paroxysmal Noc. Dyspnea, No Edema, No Lt Headedness, No Other Respiratory: No Cough, No Dry, No Shortness of breath, No SOB with excertion, No Wheezing, No Hemoptysis, No Pleuritic Pain, No Sputum, No Other Gastrointestinal: Nausea, Vomiting; No Abdominal Pain, No Diarrhea; C onstipation; No Melena, No Hematochezia, No Other Genitourinary: No Dysuria, No Frequency, No Incontinence, No Hematuria, No Retention, No Other Musculoskeletal: No other, No neck pain, No shoulder pain, No arm pain, No back pain, No hand pain, No leg pain, No foot pain Skin: No Rash, No Lesions, No Jaundice, No Bruising, No Other Objective Vitals Vital Signs Date Time Temp Pulse Resp B/P (MAP) Pulse Ox O2 Delivery O2 Flow Rate FiO2 08/27/24 09:12 102 22 129/72 (91) 92 45 08/27/24 08:00 Mechanical Ventilator+ 08/27/24 04:15 99.5 99.5 Intake/Output Intake and Output 08/27/24 07:00 Intake Total 3335.425 ml Output Total 445 ml Balance 2890.425 ml Intake Oral 250 ml IV Total 2735.425 ml Blood Product 350 ml Output Urine Total 230 ml Gastric Drainage Total 200 ml Other 15 ml General Appearance: Alert, Oriented X3, Cooperative, moderate distress, Other (Chemically sedated) HEENT: Atraumatic, PERRLA Lungs: Other (Bilateral rhonchi. Mechanical ventilation) Cardiovascular: Normal S1, Normal S2 Abdomen: Soft, No tenderness Musculoskeletal: Normal sensory function, Normal motor function Neuro: Other (Unable to assess) Skin: Dry, Intact Psych/Mental Status: Other (Unable to assess) Medications Current Medications Medications Dose Ordered Sig/Nikki Route Start Time Stop Time Status Last Admin Dose Admin Ondansetron HCl 4 mg Q4HP PRN IV 08/19/24 13:30 Nitroglycerin 0.4 mg Q5MINP PRN SL 08/19/24 13:30 Morphine Sulfate 2 mg Q30M PRN IV 08/19/24 13:30 Diagnostic Test (Pha) 1 strip ACHS 08/19/24 17:00 Cancel Norepinephrine Bitartrate 250 ml @ 3.75 mls/hr Q24H IV 08/19/24 17:15 Cancel Midazolam HCl 50 ml @ 1 mls/hr Q24H IV 08/19/24 17:15 08/27/24 09:24 15 MLS/HR Fentanyl Citrate 250 ml @ 2.5 mls/hr Q24H IV 08/19/24 17:15 08/27/24 05:39 35 MLS/HR Ipratropium [place] 0.5 mg Q6HR NEB 08/19/24 18:00 08/27/24 06:16 0.5 MG Albuterol 2.5 mg Q6HR NEB 08/19/24 18:00 08/27/24 06:16 2.5 MG Diagnostic Test (Pha) 1 strip IQ4HR 08/19/24 20:00 08/27/24 07:54 1 STRIP Insulin Human Regular IQ4HR SC 08/19/24 20:00 08/27/24 07:54 4 UNITS Dextrose 50 ml UD PRN IV 08/19/24 19:15 Pantoprazole Sodium 40 mg BID IV 08/20/24 22:00 08/27/24 09:50 40 MG Bisacodyl 10 mg DAILYP PRN [place] 08/20/24 11:15 08/26/24 10:38 10 MG Acetaminophen 650 mg Q6HP PRN [place] 08/21/24 01:45 08/23/24 03:36 650 MG Sucralfate 1 gm QID@0600,1130,1700,2200 GT 08/21/24 11:30 08/27/24 05:28 1 GM Metoclopramide HCl 10 mg Q8HR GT 08/21/24 14:00 08/27/24 05:28 10 MG Norepinephrine Bitartrate 32 mg/ Sodium Chloride 250 ml @ 0.938 mls/ hr Q24H IV 08/21/24 16:30 08/27/24 07:00 0.938 MLS/HR Fluconazole 100 ml @ 100 mls/hr DAILY IV 08/24/24 10:00 08/27/24 09:52 100 MLS/HR Amino Acids 0 ml @ 0 mls/hr PER PHARMACY IV 08/24/24 09:00 Meropenem 50 ml @ 17 mls/hr DAILY IV 08/24/24 10:00 08/26/24 10:29 17 MLS/HR Epoetin Aquilino-epbx 10,000 unit TUTHSA@2100 SC 08/26/24 21:00 08/26/24 21:31 10,000 UNIT Albumin Human 100 ml @ 100 mls/hr PRN PRN IV 08/26/24 06:45 08/27/24 07:45 100 MLS/HR Lactulose 30 ml Q4H GT 08/26/24 10:00 08/27/24 09:50 30 ML Insulin Glargine 10 units DAILY@1000 SC 08/26/24 10:00 08/26/24 10:36 10 UNITS Enoxaparin Sodium 30 mg DAILY SC 08/27/24 10:00 08/27/24 09:51 30 MG Acetylcysteine 100 mg Q6HR NEB 08/26/24 12:00 08/27/24 06:16 100 MG Fat Emulsion Intravenous 50 ml/ Sodium Chloride 100 meq/Sodium Acetate 20 meq/ Potassium Acetate 70 meq/Calcium Gluconate 2.3 meq/ Multivitamins 10 ml/Chromium/ Copper/Manganese/ Zinc 1 ml/Insulin Human Regular 28 units/Amino Acids/ Dextrose 1,836.2262 ml @ 76 mls/hr [id number] IV 08/26/24 22:00 08/27/24 21:59 08/26/24 21:25 76 MLS/HR Propofol 100 ml @ 3.804 mls/ hr Q24H IV 08/27/24 04:30 08/27/24 04:39 3.804 MLS/HR Laboratory Results Laboratory Tests 08/27/24 03:15 Chemistry Test 08/27/24 03:15 Albumin 3.3 g/dL (3.2-4.8) Calcium Level 8.2 mg/dL (8.7-10.4) L Magnesium Level 2.2 mg/dL (1.6-2.6) Phosphorus Level 1.5 mg/dL (2.4-5.1) L Total Protein 6.2 g/dL (5.7-8.2) Lipid panel Test 08/27/24 03:15 Triglycerides Level 166 mg/dL (< 150) H LFT Test 08/27/24 03:15 Alanine Aminotransferase (ALT) 36 U/L (7-40) Alkaline Phosphatase 602 U/L (46-116) H Aspartate Amino Transferase (AST) 41 U/L (13-40) H Total Bilirubin 0.5 mg/dL (0.2-1.0) Urinalysis Test 08/19/24 11:25 Urine Color Colorless (Yellow) Urine Clarity Ex.turbid (Clear) Urine pH 6.5 (5.0-9.0) Urine Specific [place] 1.017 (1.001-1.035) Urine Protein 1+ (Negative) H Urine Ketones Negative (Negative) Urine Blood 1+ /uL (Negative) H Urine Nitrite Negative (Negative) Urine Bilirubin Negative (Negative) Urine Urobilinogen Normal mg/dL (Negative) Urine Leukocyte Esterase Trace /uL (Negative) Urine RBC 5 /hpf (0 - 3) Urine Microscopic WBC 16 /HPF (0-3) H Urine Squamous Epithelial Cells Few /hpf (<5) Urine Renal Epithelial Cells Few /hpf (None Seen) Urine Amorphous Crystals Few /hpf (None Seen) Urine Bacteria Few /hpf (None Seen) H Urine Mucus Few (None Seen) Urine Sperm Present /hpf (None Seen) Urine Creatinine 77.13 mg/dL (30.0-125.0) Urine Sodium 15 mmol/L (40-220) L Urine Glucose 3+ mg/dL (Normal) H Blood Gas Results Test 08/26/24 14:29 08/27/24 06:51 Arterial Blood pH 7.419 (7.350-7.450) 7.435 (7.350-7.450) FiO2 % 35.0 50.0 Microbiology Microbiology Date/Time Source Procedure Growth Status 08/23/24 22:30 Bronchial Washings Gram Stain - Final Resulted 08/23/24 22:30 Respiratory Culture - Preliminary Presumptive Mary albicans Resulted 08/20/24 22:05 Nose MRSA Screen - Final Complete 08/19/24 11:25 Voided Urine Urine Culture - Final Complete 08/19/24 11:00 Blood Blood Culture - Final NO GROWTH AFTER 5 DAYS OF INCUBATION. Complete Labs and/or images reviewed: Labs reviewed by me, Image(s) reviewed by me Assessment/Plan Assessment/Plan Impression: -acute hypoxic respiratory failure with mechanical ventilation -probable aspiration pneumonitis/pneumonia -sepsis with shock -obesity -rule out GI bleed -diabetes mellitus with severe hyperglycemia -hyponatremia -hypochloremia -hypokalemia -acute kidney injury, vasomotor nephropathy Plan: -events: FAIZA drain removed from carotid surgical site. No events overnight. Patient was still without bowel movement. -Vent settings: Pressure control: 18/8. FiO2 45%. -Change abx: Meropenem, Diflucan -nephrology consultation: Recommendations reviewed -NG to low intermittent suction -Continue TPN, start tube feeding once patient has BM. Gastric secretions now bilious -continue Protonix 40 mg IV twice a day, Carafate 1 g q.i.d. -Bowel Regimen: Continue lactulose, Reglan, add suppository and fleets enema. -RISS -repeat labs, chest x-ray, ABG in a.m. -GI consultation recommendations reviewed. Critical care time spent with patient discussing and formulating plan of care: 40 minutes. This does not include time spent performing procedures. This medical document was created using an electronic medical record system with [employer] dictation system. Although this document has been carefully reviewed, there may still be some phonetic and typographical errors. These areas are purely typographical due to imperfections of the software programs, and do not reflect any compromise in the patient's medical care. Plan discussed with: Patient, Other (RN) My Orders Orders - LION ORELLANA [employer] Procedure Category Date Status Time Amino Acid PHA 08/26/24 In Process Infusion... W/Fat 22:00 Tpn Per Pharmacy ROHINI 08/26/24 In Process 22:00 Ventilator Orders RT 08/26/24 Transmitted 17:21 Bisacodyl Suppository PHA 08/27/24 Verified (Dulcolax Supposit 10:00 Fleet Enema Adult PHA 08/27/24 Verified 10:00 Comprehensive LAB 08/28/24 Verified Metabolic Panel 05:00 Comprehensive LAB 08/29/24 Verified Metabolic Panel 05:00 Comprehensive LAB 08/30/24 Verified Metabolic Panel 05:00 Complete Blood Count LAB 08/28/24 Verified 05:00 Complete Blood Count LAB 08/29/24 Verified 05:00 Complete Blood Count LAB 08/30/24 Verified 05:00 Abg W/ Co-Ox RT 08/28/24 Verified 05:00 Abg W/ Co-Ox RT 08/29/24 Verified 05:00 Abg W/ Co-Ox RT 08/30/24 Verified 05:00 Chest Portable XY 08/28/24 Verified 05:00 Chest Portable XY 08/29/24 Verified 05:00 Chest Portable XY 08/30/24 Verified 05:00 Date of Service: Aug 27, 2024 Billing Provider: LION ORELLANA NP Common Visit Codes: [id number] CARE 30-74 MIN LION ORELLANA NP Aug 27, 2024 09:59
[2024-08-27] MEDS: NOREPINEPHRINE BITARTRATE 32 MG in SODIUM CHL 0.9% 218 ML IV SCH (12:50)
[2024-08-27] MEDS: FLEET ENEMA(ADULT) 135 ML PR ONE (13:39)
[2024-08-27] MEDS: BISACODYL 10 MG RECT SUPP PR ONE (13:40)
--- NOTE | 2024-08-27 15:41 | DVHPN2 ---
Progress Note Date Seen: Aug 27, 2024 Has the PT tested + for MRSA If YES, has PT been informed?: No Medical Necessity Reason Pt with a Central, PICC or Fol: Yes The following are medically ne: Central Line, Chavez Catheter Reason for chavez catheter: Strict I&O Subjective Review of Systems: RESPIRATORY:Abnormal Objective vital signs Vital Sign Date Time Temp Pulse Resp B/P (MAP) Pulse Ox O2 Delivery O2 Flow Rate FiO2 08/27/24 15:11 93 20 95/56 (69) 92 50 08/27/24 14:00 Mechanical Ventilator+ 08/27/24 12:00 99.1 99.1 Total Intake and Output 08/26/24 08/26/24 08/27/24 15:00 23:00 07:00 Intake Total 1352.625 ml 1012.0 ml 1098.1 ml Output Total 140 ml 305 ml Balance 1352.625 ml 872.0 ml 793.1 ml medications Current Medications Medications Dose Ordered Sig/Nikki Route Start Time Stop Time Status Last Admin Dose Admin Ondansetron HCl 4 mg Q4HP PRN IV 08/19/24 13:30 Nitroglycerin 0.4 mg Q5MINP PRN SL 08/19/24 13:30 Morphine Sulfate 2 mg Q30M PRN IV 08/19/24 13:30 Diagnostic Test (Pha) 1 strip ACHS 08/19/24 17:00 Cancel Norepinephrine Bitartrate 250 ml @ 3.75 mls/hr Q24H IV 08/19/24 17:15 Cancel Midazolam HCl 50 ml @ 1 mls/hr Q24H IV 08/19/24 17:15 08/27/24 12:42 15 MLS/HR Fentanyl Citrate 250 ml @ 2.5 mls/hr Q24H IV 08/19/24 17:15 08/27/24 13:33 32.5 MLS/HR Ipratropium [place] 0.5 mg Q6HR NEB 08/19/24 18:00 08/27/24 11:41 0.5 MG Albuterol 2.5 mg Q6HR NEB 08/19/24 18:00 08/27/24 11:41 2.5 MG Diagnostic Test (Pha) 1 strip IQ4HR 08/19/24 20:00 08/27/24 11:57 1 STRIP Insulin Human Regular IQ4HR SC 08/19/24 20:00 08/27/24 11:51 8 UNITS Dextrose 50 ml UD PRN IV 08/19/24 19:15 Pantoprazole Sodium 40 mg BID IV 08/20/24 22:00 08/27/24 09:50 40 MG Bisacodyl 10 mg DAILYP PRN IN 08/20/24 11:15 08/27/24 15:16 10 MG Acetaminophen 650 mg Q6HP PRN IN 08/21/24 01:45 08/23/24 03:36 650 MG Sucralfate 1 gm QID@0600,1130,1700,2200 08/21/24 11:30 08/27/24 11:55 1 GM Metoclopramide HCl 10 mg Q8HR GT 08/21/24 14:00 08/27/24 13:34 10 MG Fluconazole 100 ml @ 100 mls/hr DAILY IV 08/24/24 10:00 08/27/24 09:52 100 MLS/HR Amino Acids 0 ml @ 0 mls/hr PER PHARMACY IV 08/24/24 09:00 Meropenem 50 ml @ 17 mls/hr DAILY IV 08/24/24 10:00 08/27/24 11:02 17 MLS/HR Epoetin Aquilino-epbx 10,000 unit TUTHSA@2100 [place] 08/26/24 21:00 08/26/24 21:31 10,000 UNIT Albumin Human 100 ml @ 100 mls/hr PRN PRN IV 08/26/24 06:45 08/27/24 07:45 100 MLS/HR Lactulose 30 ml Q4H GT 08/26/24 10:00 08/27/24 13:34 30 ML Insulin Glargine 10 units DAILY@1000 [place] 08/26/24 10:00 08/27/24 11:52 10 UNITS Enoxaparin Sodium 30 mg DAILY SC 08/27/24 10:00 08/27/24 09:51 30 MG Acetylcysteine 100 mg Q6HR [facility] 08/26/24 12:00 08/27/24 11:41 100 MG Fat Emulsion Intravenous 50 ml/ Sodium Chloride 100 meq/Sodium Acetate 20 meq/ Potassium Acetate 70 meq/Calcium Gluconate 2.3 meq/ Multivitamins 10 ml/Chromium/ Copper/Manganese/ Zinc 1 ml/Insulin Human Regular 28 units/Amino Acids/ Dextrose 1,836.2262 ml @ 76 mls/hr [id number] IV 08/26/24 22:00 08/27/24 21:59 08/26/24 21:25 76 MLS/HR Propofol 100 ml @ 3.804 mls/ hr Q24H IV 08/27/24 04:30 08/27/24 15:25 26.628 MLS/HR Sodium Chloride 60 meq/Sodium Acetate 40 meq/ Potassium Chloride 40 meq/ Potassium Acetate 40 meq/Calcium Gluconate 2.3 meq/ Multivitamins 10 ml/Chromium/ Copper/Manganese/ Zinc 1 ml/Insulin Human Regular 30 units/Amino Acids/ Dextrose 1,791.2462 ml @ 75 mls/hr [id number] IV 08/27/24 22:00 08/28/24 21:59 Norepinephrine Bitartrate 32 mg/ Sodium Chloride 250 ml @ 0.469 mls/ hr Q24H IV 08/27/24 13:00 08/27/24 12:50 0.469 MLS/HR Examination: GENERAL:Abnormal, LUNGS:Abnormal, CVS:Abnormal, ABDOMEN:Abnormal laboratory and microbiology Laboratory Tests 08/27/24 03:15 Test 08/27/24 03:15 Range/Units Serum Glucose 159 #H 74-106 mg/dL Microbiology Date/Time Source Procedure Growth Status 08/23/24 22:30 Bronchial Washings Gram Stain - Final Complete 08/23/24 22:30 Respiratory Culture - Final Presumptive Mary albicans Complete 08/20/24 22:05 Nose MRSA Screen - Final Complete 08/19/24 11:25 Voided Urine Urine Culture - Final Complete 08/19/24 11:00 Blood Blood Culture - Final NO GROWTH AFTER 5 DAYS OF INCUBATION. Complete Problem List/Assessment/Plan Problem List/Assessment/Plan Acute kidney injury in the setting of hypotension and volume depletion -> ATN Metabolic alkalosis in the setting of vomiting-> chloride depletion Severe hyperglycemia Hyponatremia in the setting of hyperglycemia hyperosmolar state Uncontrolled diabetes acute respiratory failure due to aspiration pneumonia? carotid artery injury due to temp HD cath s/p vascular surgery repair has fem tunnel HD catheter placed by vascular HD today, aggressive fluid removal breathing improved slightly Will schedule more frequent treatments; tentative tomorrow strict I/O Patient is critically ill critical care time spent 70 minutes Guarded prognosis Plan discussed with: Other (sister) My Orders My Orders Orders - MERLIN ROBLES MD Procedure Category Date Status Time Hemodialysis Orders ORDERS 08/27/24 Transmitted 07:00 Dialysis Nursing ROHINI 08/27/24 In Process Message 07:00 Document Fluid Input ROHINI 08/27/24 In Process And Outpu 07:00 Dietary Evaluation Review Recommendations by RD: Protein Supplementation, PPN/TPN Comments: Pt is at high risk of malnutrition due to prolonged vomiting leading to inadequate nutrient intake and hypermetabolic state secondary to acute inflammation. Recommendation: 1) Start PN/TPN per pharmacy 2) If GI is accessible, consider TF Pivot 1.5Cal @ 60ml/hr along with Pro-stat 1 pk TID. Start @ 10ml/hr, increase 10ml/hr Q4H until goal rate is reached. Advance TF rate slowly and gradually to prevent Refeeding syndrome. Water Flush 50ml Q4H if allowed. TF Provision --- TF at goal volume to provide 1440 ml total volume, 2160 kcal (+300 kcal via Pro-stat = 2460 kcal), 135 gm pro (+45 gm via ProStat = 180 gm), 1093 ml H20 (meets 100% est. kcal needs, 100% est. protein needs) 3) Monitor Potassium, Phosphate, Magnesium for Refeeding syndrome 4) Des 1 pk daily For DTI 5) Continue current plan of care Expected Outcomes/Goals: Blood glucose to improve Nutrient intake to meet at least 75% estimated needs FU 2-3 days Food and Nutrition Intake (Mod: <75% est energy req 7days MERLIN ROBLES MD Aug 27, 2024 15:41
--- NOTE | 2024-08-27 19:23 | DVHPN2 ---
Progress Note - Dictate Date Seen: Aug 27, 2024 Has the PT tested + for MRSA If YES, has PT been informed?: No Medical Necessity Reason Pt with a Central, PICC or Fol: Yes The following are medically ne: Central Line, Chavez Catheter Reason for chavez catheter: Strict I&O Subjective Patient seen and examined at bedside. Sedated, intubated on mechanical ventilator. Overnight events reviewed. vital signs Vital Sign Date Time Temp Pulse Resp B/P (MAP) Pulse Ox O2 Delivery O2 Flow Rate FiO2 08/27/24 19:20 124/53 08/27/24 19:15 83 17 98 08/27/24 18:00 50 08/27/24 18:00 Mechanical Ventilator+ 08/27/24 16:00 99.7 99.7 Total Intake and Output 08/26/24 08/26/24 08/27/24 15:00 23:00 07:00 Intake Total 1352.625 ml 1012.0 ml 1098.1 ml Output Total 140 ml 305 ml Balance 1352.625 ml 872.0 ml 793.1 ml medications Current Medications Medications Dose Ordered Sig/Nikki Route Start Time Stop Time Status Last Admin Dose Admin Ondansetron HCl 4 mg Q4HP PRN IV 08/19/24 13:30 Nitroglycerin 0.4 mg Q5MINP PRN SL 08/19/24 13:30 Morphine Sulfate 2 mg Q30M PRN IV 08/19/24 13:30 Diagnostic Test (Pha) 1 strip ACHS 08/19/24 17:00 Cancel Norepinephrine Bitartrate 250 ml @ 3.75 mls/hr Q24H IV 08/19/24 17:15 Cancel Midazolam HCl 50 ml @ 1 mls/hr Q24H IV 08/19/24 17:15 08/27/24 19:20 15 MLS/HR Fentanyl Citrate 250 ml @ 2.5 mls/hr Q24H IV 08/19/24 17:15 08/27/24 13:33 32.5 MLS/HR Ipratropium [place] 0.5 mg Q6HR NEB 08/19/24 18:00 08/27/24 11:41 0.5 MG Albuterol 2.5 mg Q6HR NEB 08/19/24 18:00 08/27/24 11:41 2.5 MG Diagnostic Test (Pha) 1 strip IQ4HR 08/19/24 20:00 08/27/24 16:00 1 STRIP Insulin Human Regular IQ4HR SC 08/19/24 20:00 08/27/24 16:01 12 UNITS Dextrose 50 ml UD PRN IV 08/19/24 19:15 Pantoprazole Sodium 40 mg BID IV 08/20/24 22:00 08/27/24 09:50 40 MG Bisacodyl 10 mg DAILYP PRN GA 08/20/24 11:15 08/27/24 15:16 10 MG Acetaminophen 650 mg Q6HP PRN GA 08/21/24 01:45 08/23/24 03:36 650 MG Sucralfate 1 gm QID@0600,1130,1700,2200 08/21/24 11:30 08/27/24 16:57 1 GM Metoclopramide HCl 10 mg Q8HR GT 08/21/24 14:00 08/27/24 13:34 10 MG Fluconazole 100 ml @ 100 mls/hr DAILY IV 08/24/24 10:00 08/27/24 09:52 100 MLS/HR Amino Acids 0 ml @ 0 mls/hr PER PHARMACY IV 08/24/24 09:00 Meropenem 50 ml @ 17 mls/hr DAILY IV 08/24/24 10:00 08/27/24 11:02 17 MLS/HR Epoetin Aquilino-epbx 10,000 unit TUTHSA@2100 PR 08/26/24 21:00 08/26/24 21:31 10,000 UNIT Albumin Human 100 ml @ 100 mls/hr PRN PRN IV 08/26/24 06:45 08/27/24 07:45 100 MLS/HR Lactulose 30 ml Q4H GT 08/26/24 10:00 08/27/24 18:14 30 ML Insulin Glargine 10 units DAILY@1000 SC 08/26/24 10:00 08/27/24 11:52 10 UNITS Enoxaparin Sodium 30 mg DAILY SC 08/27/24 10:00 08/27/24 09:51 30 MG Acetylcysteine 100 mg Q6HR NEB 08/26/24 12:00 08/27/24 11:41 100 MG Fat Emulsion Intravenous 50 ml/ Sodium Chloride 100 meq/Sodium Acetate 20 meq/ Potassium Acetate 70 meq/Calcium Gluconate 2.3 meq/ Multivitamins 10 ml/Chromium/ Copper/Manganese/ Zinc 1 ml/Insulin Human Regular 28 units/Amino Acids/ Dextrose 1,836.2262 ml @ 76 mls/hr [id number] IV 08/26/24 22:00 08/27/24 21:59 08/26/24 21:25 76 MLS/HR Propofol 100 ml @ 3.804 mls/ hr Q24H IV 08/27/24 04:30 08/27/24 18:29 22.824 MLS/HR Sodium Chloride 60 meq/Sodium Acetate 40 meq/ Potassium Chloride 40 meq/ Potassium Acetate 40 meq/Calcium Gluconate 2.3 meq/ Multivitamins 10 ml/Chromium/ Copper/Manganese/ Zinc 1 ml/Insulin Human Regular 30 units/Amino Acids/ Dextrose 1,791.2462 ml @ 75 mls/hr [id number] IV 08/27/24 22:00 08/28/24 21:59 Norepinephrine Bitartrate 32 mg/ Sodium Chloride 250 ml @ 0.469 mls/ hr Q24H IV 08/27/24 13:00 08/27/24 12:50 0.469 MLS/HR objective Gen.: Patient lying in bed in medical ICU. Sedated, intubated on mechanical ventilator. Head: Normocephalic, atraumatic. Eyes: PERRLA. Ears: Normal external anatomy. Throat: Endotracheal tube and orogastric tube in place. Neck: Supple, trachea midline. Chest: Transmitted breath sounds bilaterally. Decreased air entry bilaterally. No wheezing. Bibasilar crackles. Cardiovascular: Positive S1, positive S2. Regular rate and rhythm. Abdomen: Positive bowel sounds in all 4 quadrants. Soft, nontender, nondistended. : Chavez in place. Normal external genitalia. Rectal: Deferred. Skin: Warm, dry. Intact. Extremities: 2+ radial pulses bilaterally. No lower extremity edema. Neuro: Sedated laboratory and microbiology Laboratory Tests 08/27/24 03:15 Test 08/27/24 03:15 Range/Units Serum Glucose 159 #H 74-106 mg/dL Assessment/Plan Impression: Acute hypoxic respiratory failure On mechanical ventilator Gastrointestinal hemorrhage, upper Aspiration pneumonia MAGDALENA mucous plug Obesity BMI 35.9 Events: Remains on vent support Vent settings: PCV mode; respiratory rate 18; I-Pressure 18; I-time 0.8, PEEP 8, FiO2 45% Sedated on Versed, Propofol On pressors for hemodynamic support Levophed 1 mcg/min - OK to taper by 0.5 mcg/min Titrate to keep mean arterial pressure greater than 65 mmHg. Transition to AC mode - RR 18, VT 550, PEEP 8, FiO2 45% Obtain ABG in [address] Monitor hemoglobin - trending up to 8.3 g/dL HD per Nephrology Monitor renal function Monitor electrolytes. Supplement as necessary. Nephrology recommendations appreciated. Continue bronchodilators/Mucomyst Continue antibiotics. Continue antifungals Follow up cultures TPN for nutritional support CXR reviewed, notable for pulmonary congestion and edema. Devices in place. Accu-[place], ISS S/p vascular surgery for carotid repair. S/p bronchoscopy w/ BAL on 08/23/24 -cleared mucous plugging from L1-L10 and R1- R10 See separate procedure note for details. Labs and imaging reviewed. Rest of plan as noted below Plan: s/p intubation on mechanical ventilator. Placed on PC mode due to high peak pressure Vent settings: changed to AC mode - RR 18, VT 550, PEEP 8, FiO2 45% Titrate FIO2 to keep O2 saturation above 90%. VAP bundle. Daily ABG and CXR while intubated Sedate for ventilator synchrony Patient underwent therapeutic bronchoscopy on 08/19/24 with clearing of mucous plugging. Aspirated coffee ground material removed from within the bilateral lungs. See separate procedure note for details. Continue bronchodilators. Continue antibiotics. Pressors as necessary for hemodynamic support Titrate to keep mean arterial pressure greater than 65 mmHg. Monitor hemoglobin GI recs appreciated IV fluids with NS Monitor renal function Monitor electrolytes. Supplement as necessary. Monitor ins and outs. Accu-Cheks, ISS GI prophylaxis - Protonix. DVT prophylaxis - Lovenox. Prognosis: Poor given patient's multiple co-morbidities. Condition: Critical Rest of plan per hospitalist and other consultants. A total of 35 minutes of critical care time was spent reviewing the patient record, examining the patient, making a diagnostic and therapeutic plan, discussing this plan with the medical personnel, following up on diagnostic studies and following the patient for clinical stability excluding any and all procedures. At least 50% of this time was spent in direct, [id number] contact. Thank you, DEON Morrison, for allowing me to participate in this patient's care. Further recommendations will depend on the patient's clinical course. Please do not hesitate to contact me if you have any questions or concerns. This medical document was created using an electronic medical record system with [employer] system. Although these documentations are being carefully reviewed, there may still be some phonetic and typographical changes. The errors are purely typographical, due to imperfection on the software program, and do not reflect any compromise in the patient's medical care. Dietary Evaluation Review Recommendations by RD: Protein Supplementation, PPN/TPN Comments: Pt is at high risk of malnutrition due to prolonged vomiting leading to inadequate nutrient intake and hypermetabolic state secondary to acute inflammation. Recommendation: 1) Start PN/TPN per pharmacy 2) If GI is accessible, consider TF Pivot 1.5Cal @ 60ml/hr along with Pro-stat 1 pk TID. Start @ 10ml/hr, increase 10ml/hr Q4H until goal rate is reached. Advance TF rate slowly and gradually to prevent Refeeding syndrome. Water Flush 50ml Q4H if allowed. TF Provision --- TF at goal volume to provide 1440 ml total volume, 2160 kcal (+300 kcal via Pro-stat = 2460 kcal), 135 gm pro (+45 gm via ProStat = 180 gm), 1093 ml H20 (meets 100% est. kcal needs, 100% est. protein needs) 3) Monitor Potassium, Phosphate, Magnesium for Refeeding syndrome 4) Des 1 pk daily For DTI 5) Continue current plan of care Expected Outcomes/Goals: Blood glucose to improve Nutrient intake to meet at least 75% estimated needs FU 2-3 days Food and Nutrition Intake (Mod: <75% est energy req 7days Plan discussed with: Other (MARYURI Vera) Critical Care Time(min): 35 LINO CARRION MD Aug 27, 2024 19:23
[2024-08-27] MEDS: TPN PER PHARMACY IV NR (21:26)
[2024-08-28] VITALS (125 sets, daily range): BP systolic 73–171; BP diastolic 46–101; PULSE 82–100; RESP 10–27; TEMP 97.7–98.8; O2SAT 89–100
[2024-08-28 03:55] LABS: Hemoglobin 8.2 g/dL (13.5-17.5)
[2024-08-28 03:58] LABS: Hematocrit 24.3 % (41.0-53.0); Mean Corpuscular Hemoglobin 29.2 pg (28.0-32.0); Mean Corpuscular Hgb Conc. 33.5 g/dL (32.0-36.0); Mean Corpuscular Volume 87.2 fL (80.0-100.0); Platelet Count (auto) 206 10^3/uL (140-450); Red Blood Cells 2.79 10^6/uL (4.5-5.90); Red Cell Distribution Width 16.1 % (11.8-14.3); White Blood Cell 24.3 10^3/uL (4.4-10.8)
[2024-08-28 04:07] LABS: Alanine Aminotransferase 38 U/L (7-40); Albumin 3.6 g/dL (3.2-4.8); Anion Gap 12 (5-15); Aspartate Aminotransferase 38 U/L (13-40); BUN/Creatinine Ratio 14.5 (10.0-20.0); Basophils % (manual) 0 (0.0-2.0); Blast Cells 0; Calcium 8.7 mg/dL (8.7-10.4); Carbon Dioxide 26 mmol/L (20-31); Chloride 100 mmol/L (98-107); Magnesium 2.2 mg/dL (1.6-2.6); Potassium 4.5 mmol/L (3.5-5.1); Promyelocytes % 0; Reactive Lymphocytes 0; Sodium 138 mmol/L (136-145); Total Protein 6.8 g/dL (5.7-8.2)
[2024-08-28 04:09] LABS: Alkaline Phosphatase 608 U/L (46-116); Glucose 226 mg/dL (74-106); Phosphorus 2.2 mg/dL (2.4-5.1)
[2024-08-28 04:10] LABS: Blood Urea Nitrogen 87 mg/dL (9-23)
[2024-08-28 04:20] LABS: Bilirubin, Total 0.4 mg/dL (0.2-1.0)
[2024-08-28 05:38] LABS: Band Neutrophils % (manual) 1; Eosinophils % (manual) 3 (0-7); Lymphocytes % (manual) 16 (10.0-50.0); Metamyelocytes % 2; Monocytes % (manual) 4 (0-12); Myelocytes % 2; Platelet Estimate Adequate
--- NOTE | 2024-08-28 05:59 | DVH ---
EXAM: XR Chest, 1 View CLINICAL INDICATION: pna TECHNIQUE: Frontal view of the chest. COMPARISON: XY CHEST PORTABLE on DOS: 08/27/24, XY CHEST PORTABLE on DOS: 08/26/24, XY CHEST PORTABLE on DOS: 08/25/24, XY CHEST PORTABLE on DOS: 08/25/24, XY CHEST PORTABLE on DOS: 08/24/24 FINDINGS: LUNGS AND PLEURAL SPACES: Pulmonary congestion and edema. Pneumonia cannot be excluded. No pneumot horax. HEART: Unremarkable. No cardiomegaly. MEDIASTINUM: Unremarkable. Normal mediastinal contour. BONES/JOINTS: Unremarkable. No acute fracture. TUBES, LINES AND DEVICES: Right internal jugular central venous catheter tip in the superior vena c leslie. Enteric tube tip in the stomach. The endotracheal tube (ETT) is in satisfactory position. OTHER FINDINGS: . . . . IMPRESSION: Pulmonary congestion and edema. Pneumonia cannot be excluded.
[2024-08-28 08:00] LABS: Base Excess -0.7 mmol/L (-2.0-3.0)
[2024-08-28] MEDS ORDERED: Glucerna 1.2 Cal 1Liter BOTTLE GT SCH (09:15)
--- NOTE | 2024-08-28 09:16 | DVHPN2 ---
Subjective Patient is intubated and sedated Reviewed: Care Plan, H&P, Labs, Medications, Previous Orders Changes from previous H/P or p: No Changes General: Per HPI; No Fatigue Eyes: No Pain, No Vision change, No Conjunctivae inflammation, No Eyelid inflammation, No Other, No Redness ENT: No Ear pain, No Ear discharge, No Nose pain, No Nose discharge, No Nose congestion, No Mouth pain, No Mouth swelling, No Throat pain, No Throat swelling, No Other Cardiovascular: No Chest Pain, No Palpitations, No Orthopnea, No Paroxysmal Noc. Dyspnea, No Edema, No Lt Headedness, No Other Respiratory: No Cough, No Dry, No Shortness of breath, No SOB with excertion, No Wheezing, No Hemoptysis, No Pleuritic Pain, No Sputum, No Other Gastrointestinal: Nausea, Vomiting; No Abdominal Pain, No Diarrhea; C onstipation; No Melena, No Hematochezia, No Other Genitourinary: No Dysuria, No Frequency, No Incontinence, No Hematuria, No Retention, No Other Musculoskeletal: No other, No neck pain, No shoulder pain, No arm pain, No back pain, No hand pain, No leg pain, No foot pain Skin: No Rash, No Lesions, No Jaundice, No Bruising, No Other Objective Vitals Vital Signs Date Time Temp Pulse Resp B/P (MAP) Pulse Ox O2 Delivery O2 Flow Rate FiO2 08/28/24 08:15 94 26 120/67 (84) 99 50 08/28/24 06:00 Mechanical Ventilator+ 08/28/24 04:01 97.7 97.7 Intake/Output Intake and Output 08/28/24 07:00 Intake Total 3996.073 ml Output Total 1140 ml Balance 2856.073 ml Intake Oral 400 ml IV Total 3596.073 ml Output Urine Total 140 ml Gastric Drainage Total 1000 ml # Bowel Movements 1 General Appearance: Alert, Oriented X3, Cooperative, moderate distress, Other (Chemically sedated) HEENT: Atraumatic, PERRLA Lungs: Other (Bilateral rhonchi. Mechanical ventilation) Cardiovascular: Normal S1, Normal S2 Abdomen: Soft, No tenderness Musculoskeletal: Normal sensory function, Normal motor function Neuro: Other (Unable to assess) Skin: Dry, Intact Psych/Mental Status: Other (Unable to assess) Medications Current Medications Medications Dose Ordered Sig/Nikki Route Start Time Stop Time Status Last Admin Dose Admin Ondansetron HCl 4 mg Q4HP PRN IV 08/19/24 13:30 Nitroglycerin 0.4 mg Q5MINP PRN SL 08/19/24 13:30 Morphine Sulfate 2 mg Q30M PRN IV 08/19/24 13:30 Diagnostic Test (Pha) 1 strip ACHS 08/19/24 17:00 Cancel Norepinephrine Bitartrate 250 ml @ 3.75 mls/hr Q24H IV 08/19/24 17:15 Cancel Midazolam HCl 50 ml @ 1 mls/hr Q24H IV 08/19/24 17:15 08/28/24 07:20 15 MLS/HR Fentanyl Citrate 250 ml @ 2.5 mls/hr Q24H IV 08/19/24 17:15 08/28/24 04:14 35 MLS/HR Ipratropium [place] 0.5 mg Q6HR NEB 08/19/24 18:00 08/28/24 07:06 0.5 MG Albuterol 2.5 mg Q6HR NEB 08/19/24 18:00 08/28/24 07:06 2.5 MG Diagnostic Test (Pha) 1 strip IQ4HR 08/19/24 20:00 08/28/24 08:31 1 STRIP Insulin Human Regular IQ4HR SC 08/19/24 20:00 08/28/24 08:39 4 UNITS Dextrose 50 ml UD PRN IV 08/19/24 19:15 Pantoprazole Sodium 40 mg BID IV 08/20/24 22:00 08/27/24 21:22 40 MG Bisacodyl 10 mg DAILYP PRN UT 08/20/24 11:15 08/27/24 15:16 10 MG Acetaminophen 650 mg Q6HP PRN UT 08/21/24 01:45 08/23/24 03:36 650 MG Sucralfate 1 gm QID@0600,1130,1700,2200 GT 08/21/24 11:30 08/28/24 05:54 1 GM Metoclopramide HCl 10 mg Q8HR GT 08/21/24 14:00 08/28/24 05:54 10 MG Fluconazole 100 ml @ 100 mls/hr DAILY IV 08/24/24 10:00 08/27/24 09:52 100 MLS/HR Amino Acids 0 ml @ 0 mls/hr PER PHARMACY IV 08/24/24 09:00 Meropenem 50 ml @ 17 mls/hr DAILY IV 08/24/24 10:00 08/27/24 11:02 17 MLS/HR Epoetin Aquilino-epbx 10,000 unit TUTHSA@2100 SC 08/26/24 21:00 08/27/24 21:21 10,000 UNIT Albumin Human 100 ml @ 100 mls/hr PRN PRN IV 08/26/24 06:45 08/27/24 07:45 100 MLS/HR Lactulose 30 ml Q4H GT 08/26/24 10:00 08/28/24 05:54 30 ML Insulin Glargine 10 units DAILY@1000 SC 08/26/24 10:00 08/27/24 11:52 10 UNITS Enoxaparin Sodium 30 mg DAILY SC 08/27/24 10:00 08/27/24 09:51 30 MG Acetylcysteine 100 mg Q6HR NEB 08/26/24 12:00 08/28/24 07:06 100 MG Propofol 100 ml @ 3.804 mls/ hr Q24H IV 08/27/24 04:30 08/28/24 06:14 22.824 MLS/HR Sodium Chloride 60 meq/Sodium Acetate 40 meq/ Potassium Chloride 40 meq/ Potassium Acetate 40 meq/Calcium Gluconate 2.3 meq/ Multivitamins 10 ml/Chromium/ Copper/Manganese/ Zinc 1 ml/Insulin Human Regular 30 units/Amino Acids/ Dextrose 1,791.2462 ml @ 75 mls/hr [id number] IV 08/27/24 22:00 08/28/24 21:59 08/27/24 21:26 75 MLS/HR Norepinephrine Bitartrate 32 mg/ Sodium Chloride 250 ml @ 0.469 mls/ hr Q24H IV 08/27/24 13:00 08/27/24 12:50 0.469 MLS/HR Laboratory Results Laboratory Tests 08/28/24 03:14 Chemistry Test 08/28/24 03:14 Albumin 3.6 g/dL (3.2-4.8) Calcium Level 8.7 mg/dL (8.7-10.4) Magnesium Level 2.2 mg/dL (1.6-2.6) Phosphorus Level 2.2 mg/dL (2.4-5.1) L Total Protein 6.8 g/dL (5.7-8.2) LFT Test 08/28/24 03:14 Alanine Aminotransferase (ALT) 38 U/L (7-40) Alkaline Phosphatase 608 U/L (46-116) H Aspartate Amino Transferase (AST) 38 U/L (13-40) Total Bilirubin 0.4 mg/dL (0.2-1.0) Urinalysis Test 08/19/24 11:25 Urine Color Colorless (Yellow) Urine Clarity Ex.turbid (Clear) Urine pH 6.5 (5.0-9.0) Urine Specific [place] 1.017 (1.001-1.035) Urine Protein 1+ (Negative) H Urine Ketones Negative (Negative) Urine Blood 1+ /uL (Negative) H Urine Nitrite Negative (Negative) Urine Bilirubin Negative (Negative) Urine Urobilinogen Normal mg/dL (Negative) Urine Leukocyte Esterase Trace /uL (Negative) Urine RBC 5 /hpf (0 - 3) Urine Microscopic WBC 16 /HPF (0-3) H Urine Squamous Epithelial Cells Few /hpf (<5) Urine Renal Epithelial Cells Few /hpf (None Seen) Urine Amorphous Crystals Few /hpf (None Seen) Urine Bacteria Few /hpf (None Seen) H Urine Mucus Few (None Seen) Urine Sperm Present /hpf (None Seen) Urine Creatinine 77.13 mg/dL (30.0-125.0) Urine Sodium 15 mmol/L (40-220) L Urine Glucose 3+ mg/dL (Normal) H Blood Gas Results Test 08/28/24 07:50 Arterial Blood pH 7.368 (7.350-7.450) FiO2 % 50.0 Microbiology Microbiology Date/Time Source Procedure Growth Status 08/23/24 22:30 Bronchial Washings Gram Stain - Final Complete 08/23/24 22:30 Respiratory Culture - Final Presumptive Mary albicans Complete 08/20/24 22:05 Nose MRSA Screen - Final Complete 08/19/24 11:25 Voided Urine Urine Culture - Final Complete 08/19/24 11:00 Blood Blood Culture - Final NO GROWTH AFTER 5 DAYS OF INCUBATION. Complete Labs and/or images reviewed: Labs reviewed by me, Image(s) reviewed by me Assessment/Plan Assessment/Plan Impression: -acute hypoxic respiratory failure with mechanical ventilation -probable aspiration pneumonitis/pneumonia -sepsis with shock -obesity -rule out GI bleed -diabetes mellitus with severe hyperglycemia -hyponatremia -hypochloremia -hypokalemia -acute kidney injury, vasomotor nephropathy Plan: -events: No Events overnight. FiO2 at 50% with improvement of oxygen saturation, noted to be 99%. Patient placed on assist-control. -Vent settings: Defer to pulmonology. Patient was switched to AC mode. -continue e abx: Meropenem, Diflucan -nephrology consultation: Recommendations reviewed -NG to low intermittent suction -Continue TPN, start trickle feeding -KUB -continue Protonix 40 mg IV twice a day, Carafate 1 g q.i.d. -Bowel Regimen: Continue lactulose and Reglan -RISS -repeat labs, chest x-ray, ABG in a.m. -GI consultation recommendations reviewed. Critical care time spent with patient discussing and formulating plan of care: 40 minutes. This does not include time spent performing procedures. This medical document was created using an electronic medical record system with [employer]ation system. Although this document has been carefully reviewed, there may still be some phonetic and typographical errors. These areas are purely typographical due to imperfections of the software programs, and do not reflect any compromise in the patient's medical care. Plan discussed with: Patient, Other (RN) My Orders Orders - LION ORELLANA HAND SHAKER Procedure Category Date Status Time Comprehensive LAB 08/29/24 Verified Metabolic Panel 05:00 Comprehensive LAB 08/30/24 Verified Metabolic Panel 05:00 Complete Blood Count LAB 08/29/24 Verified 05:00 Complete Blood Count LAB 08/30/24 Verified 05:00 Abg W/ Co-Ox RT 08/28/24 Logged 05:00 Abg W/ Co-Ox RT 08/29/24 Logged 05:00 Abg W/ Co-Ox RT 08/30/24 Logged 05:00 Chest Portable XY 08/28/24 Resulted 05:00 Chest Portable XY 08/29/24 Logged 05:00 Chest Portable XY 08/30/24 Logged 05:00 Amino Acid PHA 08/27/24 In Process Infusion... W/Sodium 22:00 Tpn Per Pharmacy ROHINI 08/27/24 In Process 22:00 Sodium Chl 0.9% PHA 08/27/24 In Process (Ns... 13:00 Date of Service: Aug 28, 2024 Billing Provider: LION ORELLANA NP Common Visit Codes: [id number] CARE 30-74 MIN LION ORELLANA NP Aug 28, 2024 09:15
--- NOTE | 2024-08-28 11:37 | DVHPN2 ---
Progress Note Date Seen: Aug 28, 2024 Has the PT tested + for MRSA If YES, has PT been informed?: No Medical Necessity Reason Pt with a Central, PICC or Fol: Yes The following are medically ne: Central Line, Chavez Catheter Reason for chavez catheter: Strict I&O Subjective Patient reports: Other (intubated, HD nurse at bedside) Review of Systems: Deferred Objective vital signs Vital Sign Date Time Temp Pulse Resp B/P (MAP) Pulse Ox O2 Delivery O2 Flow Rate FiO2 08/28/24 10:48 115/65 08/28/24 10:07 91 23 97 50 08/28/24 06:00 Mechanical Ventilator+ 08/28/24 04:01 97.7 97.7 Total Intake and Output 08/27/24 08/27/24 08/28/24 15:00 23:00 07:00 Intake Total 1311.352 ml 1380.272 ml 1453.649 ml Output Total 200 ml 940 ml Balance 1311.352 ml 1180.272 ml 513.649 ml medications Current Medications Medications Dose Ordered Sig/Nikki Route Start Time Stop Time Status Last Admin Dose Admin Ondansetron HCl 4 mg Q4HP PRN IV 08/19/24 13:30 Nitroglycerin 0.4 mg Q5MINP PRN SL 08/19/24 13:30 Morphine Sulfate 2 mg Q30M PRN IV 08/19/24 13:30 Diagnostic Test (Pha) 1 strip ACHS 08/19/24 17:00 Cancel Norepinephrine Bitartrate 250 ml @ 3.75 mls/hr Q24H IV 08/19/24 17:15 Cancel Midazolam HCl 50 ml @ 1 mls/hr Q24H IV 08/19/24 17:15 08/28/24 10:45 15 MLS/HR Fentanyl Citrate 250 ml @ 2.5 mls/hr Q24H IV 08/19/24 17:15 08/28/24 10:48 35 MLS/HR Ipratropium [place] 0.5 mg Q6HR NEB 08/19/24 18:00 08/28/24 07:06 0.5 MG Albuterol 2.5 mg Q6HR NEB 08/19/24 18:00 08/28/24 07:06 2.5 MG Diagnostic Test (Pha) 1 strip IQ4HR 08/19/24 20:00 08/28/24 08:31 1 STRIP Insulin Human Regular IQ4HR SC 08/19/24 20:00 08/28/24 08:39 4 UNITS Dextrose 50 ml UD PRN IV 08/19/24 19:15 Pantoprazole Sodium 40 mg BID IV 08/20/24 22:00 08/27/24 21:22 40 MG Bisacodyl 10 mg DAILYP PRN TN 08/20/24 11:15 08/27/24 15:16 10 MG Acetaminophen 650 mg Q6HP PRN TN 08/21/24 01:45 08/23/24 03:36 650 MG Sucralfate 1 gm QID@0600,1130,1700,2200 08/21/24 11:30 08/28/24 05:54 1 GM Metoclopramide HCl 10 mg Q8HR GT 08/21/24 14:00 08/28/24 05:54 10 MG Fluconazole 100 ml @ 100 mls/hr DAILY IV 08/24/24 10:00 08/27/24 09:52 100 MLS/HR Amino Acids 0 ml @ 0 mls/hr PER PHARMACY IV 08/24/24 09:00 Meropenem 50 ml @ 17 mls/hr DAILY IV 08/24/24 10:00 08/27/24 11:02 17 MLS/HR Epoetin Aquilino-epbx 10,000 unit TUTHSA@2100 ME 08/26/24 21:00 08/27/24 21:21 10,000 UNIT Albumin Human 100 ml @ 100 mls/hr PRN PRN IV 08/26/24 06:45 08/27/24 07:45 100 MLS/HR Lactulose 30 ml Q4H GT 08/26/24 10:00 08/28/24 05:54 30 ML Insulin Glargine 10 units DAILY@1000 SC 08/26/24 10:00 08/28/24 10:57 10 UNITS Enoxaparin Sodium 30 mg DAILY SC 08/27/24 10:00 08/27/24 09:51 30 MG Acetylcysteine 100 mg Q6HR NEB 08/26/24 12:00 08/28/24 07:06 100 MG Propofol 100 ml @ 3.804 mls/ hr Q24H IV 08/27/24 04:30 08/28/24 10:45 22.824 MLS/HR Sodium Chloride 60 meq/Sodium Acetate 40 meq/ Potassium Chloride 40 meq/ Potassium Acetate 40 meq/Calcium Gluconate 2.3 meq/ Multivitamins 10 ml/Chromium/ Copper/Manganese/ Zinc 1 ml/Insulin Human Regular 30 units/Amino Acids/ Dextrose 1,791.2462 ml @ 75 mls/hr [id number] IV 08/27/24 22:00 08/28/24 21:59 08/27/24 21:26 75 MLS/HR Norepinephrine Bitartrate 32 mg/ Sodium Chloride 250 ml @ 0.469 mls/ hr Q24H IV 08/27/24 13:00 08/27/24 12:50 0.469 MLS/HR Enteral Nutritional Formula 1,000 ml 30ML/HR GT 08/28/24 09:15 Examination: GENERAL:Abnormal, LUNGS:Abnormal, ABDOMEN:Abnormal, SKIN:Abnormal laboratory and microbiology Laboratory Tests 08/28/24 03:14 Test 08/28/24 03:14 Range/Units Serum Glucose 226 H 74-106 mg/dL Microbiology Date/Time Source Procedure Growth Status 08/23/24 22:30 Bronchial Washings Gram Stain - Final Complete 08/23/24 22:30 Respiratory Culture - Final Presumptive Mary albicans Complete 08/20/24 22:05 Nose MRSA Screen - Final Complete 08/19/24 11:25 Voided Urine Urine Culture - Final Complete 08/19/24 11:00 Blood Blood Culture - Final NO GROWTH AFTER 5 DAYS OF INCUBATION. Complete Problem List/Assessment/Plan Problem List/Assessment/Plan Acute kidney injury in the setting of hypotension and volume depletion -> ATN Metabolic alkalosis in the setting of vomiting-> chloride depletion Severe hyperglycemia Hyponatremia in the setting of hyperglycemia hyperosmolar state Uncontrolled diabetes acute respiratory failure due to aspiration pneumonia? carotid artery injury due to temp HD cath s/p vascular surgery repair has fem tunnel HD catheter placed by vascular HD today, aggressive fluid removal breathing improved slightly Will schedule more frequent treatments; strict I/O Patient is critically ill critical care time spent 70 minutes Guarded prognosis Plan discussed with: Other My Orders My Orders Orders - MERLIN ROBLES MD Procedure Category Date Status Time Hemodialysis Orders ORDERS 08/28/24 Transmitted 07:00 Dialysis Nursing ROHINI 08/28/24 In Process Message 07:00 Document Fluid Input ROHINI 08/28/24 In Process And Outpu 07:00 Dietary Evaluation Review Recommendations by RD: Protein Supplementation, PPN/TPN Comments: Pt is at high risk of malnutrition due to prolonged vomiting leading to inadequate nutrient intake and hypermetabolic state secondary to acute inflammation. Recommendation: 1) Start PN/TPN per pharmacy 2) If GI is accessible, consider TF Pivot 1.5Cal @ 60ml/hr along with Pro-stat 1 pk TID. Start @ 10ml/hr, increase 10ml/hr Q4H until goal rate is reached. Advance TF rate slowly and gradually to prevent Refeeding syndrome. Water Flush 50ml Q4H if allowed. TF Provision --- TF at goal volume to provide 1440 ml total volume, 2160 kcal (+300 kcal via Pro-stat = 2460 kcal), 135 gm pro (+45 gm via ProStat = 180 gm), 1093 ml H20 (meets 100% est. kcal needs, 100% est. protein needs) 3) Monitor Potassium, Phosphate, Magnesium for Refeeding syndrome 4) Des 1 pk daily For DTI 5) Continue current plan of care Expected Outcomes/Goals: Blood glucose to improve Nutrient intake to meet at least 75% estimated needs FU 2-3 days Food and Nutrition Intake (Mod: <75% est energy req 7days MERLIN ROBLES MD Aug 28, 2024 11:37
--- NOTE | 2024-08-28 11:55 | DVHPN2 ---
Progress Note - Dictate Date Seen: Aug 28, 2024 Has the PT tested + for MRSA If YES, has PT been informed?: No Medical Necessity Reason Pt with a Central, PICC or Fol: Yes The following are medically ne: Central Line, Chavez Catheter Reason for chavez catheter: Strict I&O vital signs Vital Sign Date Time Temp Pulse Resp B/P (MAP) Pulse Ox O2 Delivery O2 Flow Rate FiO2 08/28/24 11:39 85 20 106/55 (72) 96 45 08/28/24 06:00 Mechanical Ventilator+ 08/28/24 04:01 97.7 97.7 Total Intake and Output 08/27/24 08/27/24 08/28/24 15:00 23:00 07:00 Intake Total 1311.352 ml 1380.272 ml 1453.649 ml Output Total 200 ml 940 ml Balance 1311.352 ml 1180.272 ml 513.649 ml medications Current Medications Medications Dose Ordered Sig/Nikki Route Start Time Stop Time Status Last Admin Dose Admin Ondansetron HCl 4 mg Q4HP PRN IV 08/19/24 13:30 Nitroglycerin 0.4 mg Q5MINP PRN SL 08/19/24 13:30 Morphine Sulfate 2 mg Q30M PRN IV 08/19/24 13:30 Diagnostic Test (Pha) 1 strip ACHS 08/19/24 17:00 Cancel Norepinephrine Bitartrate 250 ml @ 3.75 mls/hr Q24H IV 08/19/24 17:15 Cancel Midazolam HCl 50 ml @ 1 mls/hr Q24H IV 08/19/24 17:15 08/28/24 10:45 15 MLS/HR Fentanyl Citrate 250 ml @ 2.5 mls/hr Q24H IV 08/19/24 17:15 08/28/24 10:48 35 MLS/HR Ipratropium [place] 0.5 mg Q6HR NEB 08/19/24 18:00 08/28/24 11:39 0.5 MG Albuterol 2.5 mg Q6HR NEB 08/19/24 18:00 08/28/24 11:39 2.5 MG Diagnostic Test (Pha) 1 strip IQ4HR 08/19/24 20:00 08/28/24 08:31 1 STRIP Insulin Human Regular IQ4HR SC 08/19/24 20:00 08/28/24 08:39 4 UNITS Dextrose 50 ml UD PRN IV 08/19/24 19:15 Pantoprazole Sodium 40 mg BID IV 08/20/24 22:00 08/27/24 21:22 40 MG Bisacodyl 10 mg DAILYP PRN [place] 08/20/24 11:15 08/27/24 15:16 10 MG Acetaminophen 650 mg Q6HP PRN [place] 08/21/24 01:45 08/23/24 03:36 650 MG Sucralfate 1 gm QID@0600,1130,1700,2200 08/21/24 11:30 08/28/24 05:54 1 GM Metoclopramide HCl 10 mg Q8HR 08/21/24 14:00 08/28/24 05:54 10 MG Fluconazole 100 ml @ 100 mls/hr DAILY IV 08/24/24 10:00 08/27/24 09:52 100 MLS/HR Amino Acids 0 ml @ 0 mls/hr PER PHARMACY IV 08/24/24 09:00 Meropenem 50 ml @ 17 mls/hr DAILY IV 08/24/24 10:00 08/27/24 11:02 17 MLS/HR Epoetin Aquilino-epbx 10,000 unit TUTHSA@2100 DC 08/26/24 21:00 08/27/24 21:21 10,000 UNIT Albumin Human 100 ml @ 100 mls/hr PRN PRN IV 08/26/24 06:45 08/27/24 07:45 100 MLS/HR Lactulose 30 ml Q4H 08/26/24 10:00 08/28/24 05:54 30 ML Insulin Glargine 10 units DAILY@1000 DC 08/26/24 10:00 08/28/24 10:57 10 UNITS Enoxaparin Sodium 30 mg DAILY SC 08/27/24 10:00 08/27/24 09:51 30 MG Acetylcysteine 100 mg Q6HR NEB 08/26/24 12:00 08/28/24 11:39 100 MG Propofol 100 ml @ 3.804 mls/ hr Q24H IV 08/27/24 04:30 08/28/24 10:45 22.824 MLS/HR Sodium Chloride 60 meq/Sodium Acetate 40 meq/ Potassium Chloride 40 meq/ Potassium Acetate 40 meq/Calcium Gluconate 2.3 meq/ Multivitamins 10 ml/Chromium/ Copper/Manganese/ Zinc 1 ml/Insulin Human Regular 30 units/Amino Acids/ Dextrose 1,791.2462 ml @ 75 mls/hr [id number] IV 08/27/24 22:00 08/28/24 21:59 08/27/24 21:26 75 MLS/HR Norepinephrine Bitartrate 32 mg/ Sodium Chloride 250 ml @ 0.469 mls/ hr Q24H IV 08/27/24 13:00 08/27/24 12:50 0.469 MLS/HR Enteral Nutritional Formula 1,000 ml 30ML/HR GT 08/28/24 09:15 Sodium Chloride 80 meq/Sodium Acetate 20 meq/ Calcium Gluconate 2.3 meq/ Multivitamins 10 ml/Chromium/ Copper/Manganese/ Zinc 1 ml/Insulin Human Regular 35 units/Amino Acids/ Dextrose 1,746.2962 ml @ 73 mls/hr [id number] IV 08/28/24 22:00 08/29/24 21:59 laboratory and microbiology Laboratory Tests 08/28/24 03:14 Test 08/28/24 03:14 Range/Units Serum Glucose 226 H 74-106 mg/dL Assessment/Plan Impression: Acute hypoxic respiratory failure On mechanical ventilator Gastrointestinal hemorrhage, upper Aspiration pneumonia MAGDALENA mucous plug Obesity BMI 35.9 Patient seen and examined in ICU Events: On mechanical ventilation S/p intubation PEEP 8, FiO2 50% On pressors for hemodynamic support S/p vascular surgery for carotid repair S/p bronchoscopy w/ BAL on 08/23/24 Labs and imaging reviewed White count trending down ABG reviewed pH 7.37, pCO2 43, pO2 88 Management Vent support VAP bundle. Daily ABG and CXR while intubated Sedate for ventilator synchrony HD per Nephrology Monitor renal function Monitor electrolytes. Supplement as necessary. Continue bronchodilators/Mucomyst Continue antibiotics. Continue antifungals Follow up cultures TPN for nutritional support Accu-Cheks, ISS Patient underwent therapeutic bronchoscopy on 08/19/24 with clearing of mucous plugging. Aspirated coffee ground material removed from within the bilateral lungs. See separate procedure note for details. Continue bronchodilators. Continue antibiotics. Pressors as necessary for hemodynamic support Titrate to keep mean arterial pressure greater than 65 mmHg. Monitor hemoglobin GI recs appreciated DVT prophylaxis - Lovenox. Critical care time 35 minutes Dietary Evaluation Review Recommendations by RD: Protein Supplementation, PPN/TPN Comments: Pt is at high risk of malnutrition due to prolonged vomiting leading to inadequate nutrient intake and hypermetabolic state secondary to acute inflammation. Recommendation: 1) Start PN/TPN per pharmacy 2) If GI is accessible, consider TF Pivot 1.5Cal @ 60ml/hr along with Pro-stat 1 pk TID. Start @ 10ml/hr, increase 10ml/hr Q4H until goal rate is reached. Advance TF rate slowly and gradually to prevent Refeeding syndrome. Water Flush 50ml Q4H if allowed. TF Provision --- TF at goal volume to provide 1440 ml total volume, 2160 kcal (+300 kcal via Pro-stat = 2460 kcal), 135 gm pro (+45 gm via ProStat = 180 gm), 1093 ml H20 (meets 100% est. kcal needs, 100% est. protein needs) 3) Monitor Potassium, Phosphate, Magnesium for Refeeding syndrome 4) Des 1 pk daily For DTI 5) Continue current plan of care Expected Outcomes/Goals: Blood glucose to improve Nutrient intake to meet at least 75% estimated needs FU 2-3 days Food and Nutrition Intake (Mod: <75% est energy req 7days Plan discussed with: Other (Rn) REJI GUIDRY MD Aug 28, 2024 11:55
[2024-08-28] MEDS: GASTROGRAFIN 30 ML SOL ONE (16:15)
[2024-08-28] MEDS: TPN PER PHARMACY IV NR (21:53)
[2024-08-29] VITALS (103 sets, daily range): BP systolic 85–150; BP diastolic 37–96; PULSE 81–98; RESP 0–22; TEMP 98.4–99.5; O2SAT 93–100
[2024-08-29 04:22] LABS: Hemoglobin 7.8 g/dL (13.5-17.5); White Blood Cell 21.1 10^3/uL (4.4-10.8)
[2024-08-29 04:24] LABS: Mean Corpuscular Hemoglobin 30.1 pg (28.0-32.0); Mean Corpuscular Hgb Conc. 33.8 g/dL (32.0-36.0); Mean Corpuscular Volume 89.2 fL (80.0-100.0); Platelet Count (auto) 211 10^3/uL (140-450); Red Blood Cells 2.58 10^6/uL (4.5-5.90); Red Cell Distribution Width 16.4 % (11.8-14.3)
[2024-08-29 04:30] LABS: Alanine Aminotransferase 29 U/L (7-40); Albumin 3.4 g/dL (3.2-4.8); Anion Gap 11 (5-15); BUN/Creatinine Ratio 14.9 (10.0-20.0); Calcium 8.8 mg/dL (8.7-10.4); Carbon Dioxide 26 mmol/L (20-31); Magnesium 2.1 mg/dL (1.6-2.6); Total Protein 6.9 g/dL (5.7-8.2)
[2024-08-29 04:31] LABS: Aspartate Aminotransferase 25 U/L (13-40); Phosphorus 4.3 mg/dL (2.4-5.1)
[2024-08-29 04:48] LABS: Basophils % (manual) 0 (0.0-2.0); Myelocytes % 0; Promyelocytes % 0; Reactive Lymphocytes 0
[2024-08-29 04:55] LABS: Sodium 134 mmol/L (136-145)
[2024-08-29 04:56] LABS: Alkaline Phosphatase 570 U/L (46-116); Bilirubin, Total 0.3 mg/dL (0.2-1.0); Chloride 97 mmol/L (98-107); Glucose 236 mg/dL (74-106); Potassium 5.1 mmol/L (3.5-5.1)
[2024-08-29 04:58] LABS: Blood Urea Nitrogen 82 mg/dL (9-23)
--- NOTE | 2024-08-29 06:36 | DVH ---
CHEST RADIOGRAPH Indication: pna Technique: Single frontal view of the chest was obtained COMPARISON: XY CHEST PORTABLE on DOS: 08/28/24, XY CHEST PORTABLE on DOS: 08/27/24, XY CHEST PORTABLE o n DOS: 08/26/24, XY CHEST PORTABLE on DOS: 08/25/24, XY CHEST PORTABLE on DOS: 08/25/24 FINDINGS: Lines and Tubes: Unchanged. Lungs: Grossly stable appearing extensive multifocal patchy bilateral pulmonary airspace disease, lef [id number]. No definite evidence of pleural effusion. No pneumothorax. Cardiomediastinal contours: Unremarkable Bones: Unremarkable IMPRESSION: 1. Stable appearing extensive bilateral multifocal patchy pulmonary airspace disease, [id number]-[id number] an-right. 2. Lines and tubes unchanged.
[2024-08-29 06:49] LABS: Band Neutrophils % (manual) 3; Blast Cells 2; Eosinophils % (manual) 2 (0-7); Lymphocytes % (manual) 17 (10.0-50.0); Metamyelocytes % 2; Monocytes % (manual) 6 (0-12); Platelet Estimate Adequate
[2024-08-29] MEDS: SODIUM CHL 0.9% 1000 ML BAG XX ONE (07:00)
[2024-08-29 07:45] LABS: Base Excess -1.4 mmol/L (-2.0-3.0)
[2024-08-29 10:10] LABS: Hemoglobin 8.1 g/dL (13.5-17.5)
[2024-08-29 10:12] LABS: Hematocrit 24.5 % (41.0-53.0)
--- NOTE | 2024-08-29 10:19 | DVHPN2 ---
Progress Note - Dictate Date Seen: Aug 29, 2024 Has the PT tested + for MRSA If YES, has PT been informed?: No Medical Necessity Reason Pt with a Central, PICC or Fol: Yes The following are medically ne: Central Line, Chavez Catheter Reason for chavez catheter: Strict I&O vital signs Vital Sign Date Time Temp Pulse Resp B/P (MAP) Pulse Ox O2 Delivery O2 Flow Rate FiO2 08/29/24 10:00 20 97 Mechanical Ventilator+ 40 40 08/29/24 08:55 114/51 08/29/24 08:00 98 08/29/24 04:00 99.1 99.1 Total Intake and Output 08/28/24 08/28/24 08/29/24 15:00 23:00 07:00 Intake Total 1295.626 ml 1578.029 ml 1138.672 ml Output Total 0 ml 3850 ml 650 ml Balance 1295.626 ml -2271.971 ml 488.672 ml medications Current Medications Medications Dose Ordered Sig/Nikki Route Start Time Stop Time Status Last Admin Dose Admin Ondansetron HCl 4 mg Q4HP PRN IV 08/19/24 13:30 Nitroglycerin 0.4 mg Q5MINP PRN SL 08/19/24 13:30 Morphine Sulfate 2 mg Q30M PRN IV 08/19/24 13:30 Diagnostic Test (Pha) 1 strip ACHS 08/19/24 17:00 Cancel Norepinephrine Bitartrate 250 ml @ 3.75 mls/hr Q24H IV 08/19/24 17:15 Cancel Midazolam HCl 50 ml @ 1 mls/hr Q24H IV 08/19/24 17:15 08/29/24 08:19 15 MLS/HR Fentanyl Citrate 250 ml @ 2.5 mls/hr Q24H IV 08/19/24 17:15 08/29/24 08:55 35 MLS/HR Ipratropium [place] 0.5 mg Q6HR NEB 08/19/24 18:00 08/29/24 06:24 0.5 MG Albuterol 2.5 mg Q6HR NEB 08/19/24 18:00 08/29/24 06:24 2.5 MG Diagnostic Test (Pha) 1 strip IQ4HR 08/19/24 20:00 08/29/24 08:59 1 STRIP Insulin Human Regular IQ4HR SC 08/19/24 20:00 08/29/24 08:59 8 UNITS Dextrose 50 ml UD PRN IV 08/19/24 19:15 Pantoprazole Sodium 40 mg BID IV 08/20/24 22:00 08/28/24 21:56 40 MG Bisacodyl 10 mg DAILYP PRN [place] 08/20/24 11:15 08/27/24 15:16 10 MG Acetaminophen 650 mg Q6HP PRN [place] 08/21/24 01:45 08/23/24 03:36 650 MG Sucralfate 1 gm QID@0600,1130,1700,2200 GT 08/21/24 11:30 08/28/24 21:57 1 GM Metoclopramide HCl 10 mg Q8HR GT 08/21/24 14:00 08/28/24 21:57 10 MG Fluconazole 100 ml @ 100 mls/hr DAILY IV 08/24/24 10:00 08/28/24 13:10 100 MLS/HR Amino Acids 0 ml @ 0 mls/hr PER PHARMACY IV 08/24/24 09:00 Meropenem 50 ml @ 17 mls/hr DAILY IV 08/24/24 10:00 08/28/24 15:50 17 MLS/HR Epoetin Aquilino-epbx 10,000 unit TUTHSA@2100 ID 08/26/24 21:00 08/27/24 21:21 10,000 UNIT Albumin Human 100 ml @ 100 mls/hr PRN PRN IV 08/26/24 06:45 08/27/24 07:45 100 MLS/HR Lactulose 30 ml Q4H GT 08/26/24 10:00 08/28/24 21:57 30 ML Insulin Glargine 10 units DAILY@1000 SC 08/26/24 10:00 08/28/24 10:57 10 UNITS Enoxaparin Sodium 30 mg DAILY SC 08/27/24 10:00 08/28/24 15:14 30 MG Acetylcysteine 100 mg Q6HR NEB 08/26/24 12:00 08/29/24 06:24 100 MG Propofol 100 ml @ 3.804 mls/ hr Q24H IV 08/27/24 04:30 08/29/24 08:55 22.824 MLS/HR Norepinephrine Bitartrate 32 mg/ Sodium Chloride 250 ml @ 0.469 mls/ hr Q24H IV 08/27/24 13:00 08/28/24 15:14 1.875 MLS/HR Enteral Nutritional Formula 1,000 ml 30ML/HR GT 08/28/24 09:15 Sodium Chloride 80 meq/Sodium Acetate 20 meq/ Calcium Gluconate 2.3 meq/ Multivitamins 10 ml/Chromium/ Copper/Manganese/ Zinc 1 ml/Insulin Human Regular 35 units/Amino Acids/ Dextrose 1,746.2962 ml @ 73 mls/hr [id number] IV 08/28/24 22:00 08/29/24 21:59 08/28/24 21:53 73 MLS/HR laboratory and microbiology Laboratory Tests 08/29/24 09:56 08/29/24 03:00 Test 08/29/24 03:00 Range/Units Serum Glucose 236 H 74-106 mg/dL Assessment/Plan Impression: Acute hypoxic respiratory failure On mechanical ventilator Gastrointestinal hemorrhage, upper Aspiration pneumonia MAGDALENA mucous plug Obesity BMI 35.9 S/p vascular surgery for carotid repair S/p bronchoscopy w/ BAL on 08/23/24 Patient seen and examined in ICU Events: On mechanical ventilation for SBO, pneumonia sputum: angelique PEEP 8, FiO2 40% On pressors for hemodynamic support ABG reviewed CXR: bilateral infiltrates pulm edema/ARDS Labs and imaging reviewed White count trending down Management Vent support VAP bundle. Daily ABG and CXR while intubated Sedate for ventilator synchrony HD per Nephrology Monitor renal function Monitor electrolytes. Supplement as necessary. Continue bronchodilators/Mucomyst Continue antibiotics. Continue antifungals Follow up cultures TPN for nutritional support Accu-Cheks, ISS Patient underwent therapeutic bronchoscopy on 08/19/24 with clearing of mucous plugging. Aspirated coffee ground material removed from within the bilateral lungs. See separate procedure note for details. Continue bronchodilators. Continue antibiotics. Pressors as necessary for hemodynamic support Titrate to keep mean arterial pressure greater than 65 mmHg. Monitor hemoglobin GI recs appreciated DVT prophylaxis - Lovenox. Critical care time 35 minutes Dietary Evaluation Review Recommendations by RD: Protein Supplementation, PPN/TPN Comments: Pt is at high risk of malnutrition due to prolonged vomiting leading to inadequate nutrient intake and hypermetabolic state secondary to acute inflammation. Recommendation: 1) Start PN/TPN per pharmacy 2) If GI is accessible, consider TF Pivot 1.5Cal @ 60ml/hr along with Pro-stat 1 pk TID. Start @ 10ml/hr, increase 10ml/hr Q4H until goal rate is reached. Advance TF rate slowly and gradually to prevent Refeeding syndrome. Water Flush 50ml Q4H if allowed. TF Provision --- TF at goal volume to provide 1440 ml total volume, 2160 kcal (+300 kcal via Pro-stat = 2460 kcal), 135 gm pro (+45 gm via ProStat = 180 gm), 1093 ml H20 (meets 100% est. kcal needs, 100% est. protein needs) 3) Monitor Potassium, Phosphate, Magnesium for Refeeding syndrome 4) Des 1 pk daily For DTI 5) Continue current plan of care Expected Outcomes/Goals: Blood glucose to improve Nutrient intake to meet at least 75% estimated needs FU 2-3 days Food and Nutrition Intake (Mod: <75% est energy req 7days Plan discussed with: Other (rn) REJI GUIDRY MD Aug 29, 2024 10:19
--- NOTE | 2024-08-29 11:15 | DVHPN2 ---
Progress Note Date Seen: Aug 29, 2024 Has the PT tested + for MRSA If YES, has PT been informed?: No Medical Necessity Reason Pt with a Central, PICC or Fol: Yes The following are medically ne: Central Line, Chavez Catheter Reason for chavez catheter: Strict I&O Subjective Patient reports: Other Review of Systems: GI:Abnormal (high gastric output) Objective vital signs Vital Sign Date Time Temp Pulse Resp B/P (MAP) Pulse Ox O2 Delivery O2 Flow Rate FiO2 08/29/24 10:00 90 08/29/24 10:00 40 08/29/24 10:00 20 97 Mechanical Ventilator+ 08/29/24 09:45 106/55 (72) 08/29/24 04:00 99.1 99.1 Total Intake and Output 08/28/24 08/28/24 08/29/24 15:00 23:00 07:00 Intake Total 1295.626 ml 1578.029 ml 1138.672 ml Output Total 0 ml 3850 ml 650 ml Balance 1295.626 ml -2271.971 ml 488.672 ml medications Current Medications Medications Dose Ordered Sig/Nikki Route Start Time Stop Time Status Last Admin Dose Admin Ondansetron HCl 4 mg Q4HP PRN IV 08/19/24 13:30 Nitroglycerin 0.4 mg Q5MINP PRN SL 08/19/24 13:30 Morphine Sulfate 2 mg Q30M PRN IV 08/19/24 13:30 Diagnostic Test (Pha) 1 strip ACHS 08/19/24 17:00 Cancel Norepinephrine Bitartrate 250 ml @ 3.75 mls/hr Q24H IV 08/19/24 17:15 Cancel Midazolam HCl 50 ml @ 1 mls/hr Q24H IV 08/19/24 17:15 08/29/24 08:19 15 MLS/HR Fentanyl Citrate 250 ml @ 2.5 mls/hr Q24H IV 08/19/24 17:15 08/29/24 08:55 35 MLS/HR Ipratropium [place] 0.5 mg Q6HR NEB 08/19/24 18:00 08/29/24 06:24 0.5 MG Albuterol 2.5 mg Q6HR NEB 08/19/24 18:00 08/29/24 06:24 2.5 MG Diagnostic Test (Pha) 1 strip IQ4HR 08/19/24 20:00 08/29/24 08:59 1 STRIP Insulin Human Regular IQ4HR SC 08/19/24 20:00 08/29/24 08:59 8 UNITS Dextrose 50 ml UD PRN IV 08/19/24 19:15 Pantoprazole Sodium 40 mg BID IV 08/20/24 22:00 08/29/24 10:46 40 MG Bisacodyl 10 mg DAILYP PRN ME 08/20/24 11:15 08/27/24 15:16 10 MG Acetaminophen 650 mg Q6HP PRN ME 08/21/24 01:45 08/23/24 03:36 650 MG Sucralfate 1 gm QID@0600,1130,1700,2200 GT 08/21/24 11:30 08/28/24 21:57 1 GM Metoclopramide HCl 10 mg Q8HR GT 08/21/24 14:00 08/28/24 21:57 10 MG Fluconazole 100 ml @ 100 mls/hr DAILY IV 08/24/24 10:00 08/29/24 10:45 100 MLS/HR Amino Acids 0 ml @ 0 mls/hr PER PHARMACY IV 08/24/24 09:00 Meropenem 50 ml @ 17 mls/hr DAILY IV 08/24/24 10:00 08/28/24 15:50 17 MLS/HR Epoetin Aquilino-epbx 10,000 unit TUTHSA@2100 RI 08/26/24 21:00 08/27/24 21:21 10,000 UNIT Albumin Human 100 ml @ 100 mls/hr PRN PRN IV 08/26/24 06:45 08/27/24 07:45 100 MLS/HR Lactulose 30 ml Q4H GT 08/26/24 10:00 08/28/24 21:57 30 ML Insulin Glargine 10 units DAILY@1000 SC 08/26/24 10:00 08/29/24 10:55 10 UNITS Enoxaparin Sodium 30 mg DAILY SC 08/27/24 10:00 08/29/24 10:46 30 MG Acetylcysteine 100 mg Q6HR NEB 08/26/24 12:00 08/29/24 06:24 100 MG Propofol 100 ml @ 3.804 mls/ hr Q24H IV 08/27/24 04:30 08/29/24 08:55 22.824 MLS/HR Norepinephrine Bitartrate 32 mg/ Sodium Chloride 250 ml @ 0.469 mls/ hr Q24H IV 08/27/24 13:00 08/28/24 15:14 1.875 MLS/HR Enteral Nutritional Formula 1,000 ml 30ML/HR GT 08/28/24 09:15 Sodium Chloride 80 meq/Sodium Acetate 20 meq/ Calcium Gluconate 2.3 meq/ Multivitamins 10 ml/Chromium/ Copper/Manganese/ Zinc 1 ml/Insulin Human Regular 35 units/Amino Acids/ Dextrose 1,746.2962 ml @ 73 mls/hr [id number] IV 08/28/24 22:00 08/29/24 21:59 08/28/24 21:53 73 MLS/HR Sodium Chloride 100 meq/Sodium Acetate 20 meq/ Multivitamins 10 ml/Chromium/ Copper/Manganese/ Zinc 1 ml/Insulin Human Regular 27 units/Amino Acids/ Dextrose 1,546.27 ml @ 64 mls/hr [id number] IV 08/29/24 22:00 08/30/24 21:59 Examination: GENERAL:Abnormal, LUNGS:Abnormal, ABDOMEN:Abnormal, SKIN:Abnormal laboratory and microbiology Laboratory Tests 08/29/24 09:56 08/29/24 03:00 Test 08/29/24 03:00 Range/Units Serum Glucose 236 H 74-106 mg/dL Microbiology Date/Time Source Procedure Growth Status 08/23/24 22:30 Bronchial Washings Gram Stain - Final Complete 08/23/24 22:30 Respiratory Culture - Final Presumptive Mary albicans Complete 08/20/24 22:05 Nose MRSA Screen - Final Complete 08/19/24 11:25 Voided Urine Urine Culture - Final Complete 08/19/24 11:00 Blood Blood Culture - Final NO GROWTH AFTER 5 DAYS OF INCUBATION. Complete Problem List/Assessment/Plan Problem List/Assessment/Plan Acute kidney injury in the setting of hypotension and volume depletion -> ATN believed to be Ozempic induced Uncontrolled diabetes-> HONK acute respiratory failure due to aspiration pneumonia gastric obstruction vs Illeus w/ persistent vomiting carotid artery injury due to temp HD cath s/p vascular surgery repair has fem tunnel HD catheter placed by vascular HD tomorrow GI eval due to high output strict I/O Patient is critically ill critical care time spent 50 minutes Guarded prognosis Plan discussed with: Other (sister) Dietary Evaluation Review Recommendations by RD: Protein Supplementation, PPN/TPN Comments: Pt is at high risk of malnutrition due to prolonged vomiting leading to inadequate nutrient intake and hypermetabolic state secondary to acute inflammation. Recommendation: 1) Start PN/TPN per pharmacy 2) If GI is accessible, consider TF Pivot 1.5Cal @ 60ml/hr along with Pro-stat 1 pk TID. Start @ 10ml/hr, increase 10ml/hr Q4H until goal rate is reached. Advance TF rate slowly and gradually to prevent Refeeding syndrome. Water Flush 50ml Q4H if allowed. TF Provision --- TF at goal volume to provide 1440 ml total volume, 2160 kcal (+300 kcal via Pro-stat = 2460 kcal), 135 gm pro (+45 gm via ProStat = 180 gm), 1093 ml H20 (meets 100% est. kcal needs, 100% est. protein needs) 3) Monitor Potassium, Phosphate, Magnesium for Refeeding syndrome 4) Des 1 pk daily For DTI 5) Continue current plan of care Expected Outcomes/Goals: Blood glucose to improve Nutrient intake to meet at least 75% estimated needs FU 2-3 days Food and Nutrition Intake (Mod: <75% est energy req 7days MERLIN ROBLES MD Aug 29, 2024 11:15
--- NOTE | 2024-08-29 13:35 | DVH ---
CHEST RADIOGRAPH Indication: ET TUBE REPOSITIONED Technique: Single frontal view of the chest was obtained COMPARISON: XY CHEST PORTABLE on DOS: 08/29/24, XY CHEST PORTABLE on DOS: 08/28/24, XY CHEST PORTABLE o n DOS: 08/27/24, XY CHEST PORTABLE on DOS: 08/26/24, XY CHEST PORTABLE on DOS: 08/25/24 FINDINGS: Lines and Tubes: Endotracheal tube located 7 cm above the jasbir. Persistent infiltrates both lung roland, slightly improved. The prior study. Right-sided neck line is in the superior vena cava. Stable heart size Lungs: Clear Pleura: No effusion. No pneumothorax. Cardiomediastinal contours: Unremarkable Bones: Unremarkable IMPRESSION: 1. Endotracheal tube 7 cm above the jasbir.Stable Heart size Stable neck line. No pneumothorax.
--- NOTE | 2024-08-29 13:48 | DVHPN2 ---
Subjective Intubated and sedated Reviewed: Care Plan, H&P, Labs, Medications, Previous Orders, Radiology, Other (Consultations) Changes from previous H/P or p: No Changes Objective Vitals Vital Signs Date Time Temp Pulse Resp B/P (MAP) Pulse Ox O2 Delivery O2 Flow Rate FiO2 08/29/24 12:26 125/54 08/29/24 12:00 40 08/29/24 12:00 18 98 Mechanical Ventilator+ 08/29/24 12:00 87 08/29/24 08:00 99.5 99.5 Intake/Output Intake and Output 08/29/24 07:00 Intake Total 4012.327 ml Output Total 4500 ml Balance -487.673 ml Intake Oral 600 ml IV Total 3387.327 ml Other 25 ml Output Urine Total 50 ml Stool Total 0 ml Gastric Drainage Total 1450 ml Other 3000 ml General Appearance: Other (Intubated and sedated) HEENT: Atraumatic Lungs: Other (Mechanical ventilation sounds) Cardiovascular: Normal S1, Normal S2, Other (Tachycardia) Abdomen: Normal bowel sounds, Soft Genitourinary: Other (Friedman's) Neuro: Other (Intubated and sedated) Psych/Mental Status: Other (Intubated and sedated) Medications Current Medications Medications Dose Ordered Sig/Nikki Route Start Time Stop Time Status Last Admin Dose Admin Ondansetron HCl 4 mg Q4HP PRN IV 08/19/24 13:30 Nitroglycerin 0.4 mg Q5MINP PRN SL 08/19/24 13:30 Morphine Sulfate 2 mg Q30M PRN IV 08/19/24 13:30 Diagnostic Test (Pha) 1 strip ACHS 08/19/24 17:00 Cancel Norepinephrine Bitartrate 250 ml @ 3.75 mls/hr Q24H IV 08/19/24 17:15 Cancel Midazolam HCl 50 ml @ 1 mls/hr Q24H IV 08/19/24 17:15 08/29/24 12:26 15 MLS/HR Fentanyl Citrate 250 ml @ 2.5 mls/hr Q24H IV 08/19/24 17:15 08/29/24 08:55 35 MLS/HR Ipratropium [place] 0.5 mg Q6HR NEB 08/19/24 18:00 08/29/24 11:58 0.5 MG Albuterol 2.5 mg Q6HR NEB 08/19/24 18:00 08/29/24 11:58 2.5 MG Diagnostic Test (Pha) 1 strip IQ4HR 08/19/24 20:00 08/29/24 12:13 1 STRIP Insulin Human Regular IQ4HR SC 08/19/24 20:00 08/29/24 12:25 8 UNITS Dextrose 50 ml UD PRN IV 08/19/24 19:15 Pantoprazole Sodium 40 mg BID IV 08/20/24 22:00 08/29/24 10:46 40 MG Bisacodyl 10 mg DAILYP PRN [place] 08/20/24 11:15 08/27/24 15:16 10 MG Acetaminophen 650 mg Q6HP PRN [place] 08/21/24 01:45 08/23/24 03:36 650 MG Sucralfate 1 gm QID@0600,1130,1700,2200 08/21/24 11:30 08/28/24 21:57 1 GM Metoclopramide HCl 10 mg Q8HR GT 08/21/24 14:00 08/28/24 21:57 10 MG Fluconazole 100 ml @ 100 mls/hr DAILY IV 08/24/24 10:00 08/29/24 10:45 100 MLS/HR Amino Acids 0 ml @ 0 mls/hr PER PHARMACY IV 08/24/24 09:00 Meropenem 50 ml @ 17 mls/hr DAILY IV 08/24/24 10:00 08/29/24 11:41 17 MLS/HR Epoetin Aquilino-epbx 10,000 unit TUTHSA@2100 CT 08/26/24 21:00 08/27/24 21:21 10,000 UNIT Albumin Human 100 ml @ 100 mls/hr PRN PRN IV 08/26/24 06:45 08/27/24 07:45 100 MLS/HR Lactulose 30 ml Q4H GT 08/26/24 10:00 08/28/24 21:57 30 ML Insulin Glargine 10 units DAILY@1000 SC 08/26/24 10:00 08/29/24 10:55 10 UNITS Enoxaparin Sodium 30 mg DAILY SC 08/27/24 10:00 08/29/24 10:46 30 MG Acetylcysteine 100 mg Q6HR NEB 08/26/24 12:00 08/29/24 11:58 100 MG Propofol 100 ml @ 3.804 mls/ hr Q24H IV 08/27/24 04:30 08/29/24 12:26 30.432 MLS/HR Norepinephrine Bitartrate 32 mg/ Sodium Chloride 250 ml @ 0.469 mls/ hr Q24H IV 08/27/24 13:00 08/28/24 15:14 1.875 MLS/HR Enteral Nutritional Formula 1,000 ml 30ML/HR GT 08/28/24 09:15 Sodium Chloride 80 meq/Sodium Acetate 20 meq/ Calcium Gluconate 2.3 meq/ Multivitamins 10 ml/Chromium/ Copper/Manganese/ Zinc 1 ml/Insulin Human Regular 35 units/Amino Acids/ Dextrose 1,746.2962 ml @ 73 mls/hr [id number] IV 08/28/24 22:00 08/29/24 21:59 08/28/24 21:53 73 MLS/HR Sodium Chloride 100 meq/Sodium Acetate 20 meq/ Multivitamins 10 ml/Chromium/ Copper/Manganese/ Zinc 1 ml/Insulin Human Regular 27 units/Amino Acids/ Dextrose 1,546.27 ml @ 64 mls/hr [id number] IV 08/29/24 22:00 08/30/24 21:59 Laboratory Results Laboratory Tests 08/29/24 03:00 08/29/24 09:56 Chemistry Test 08/29/24 03:00 Albumin 3.4 g/dL (3.2-4.8) Calcium Level 8.8 mg/dL (8.7-10.4) Magnesium Level 2.1 mg/dL (1.6-2.6) Phosphorus Level 4.3 mg/dL (2.4-5.1) Total Protein 6.9 g/dL (5.7-8.2) LFT Test 08/29/24 03:00 Alanine Aminotransferase (ALT) 29 U/L (7-40) Alkaline Phosphatase 570 U/L (46-116) H Aspartate Amino Transferase (AST) 25 U/L (13-40) Total Bilirubin 0.3 mg/dL (0.2-1.0) Urinalysis Test 08/19/24 11:25 Urine Color Colorless (Yellow) Urine Clarity Ex.turbid (Clear) Urine pH 6.5 (5.0-9.0) Urine Specific [place] 1.017 (1.001-1.035) Urine Protein 1+ (Negative) H Urine Ketones Negative (Negative) Urine Blood 1+ /uL (Negative) H Urine Nitrite Negative (Negative) Urine Bilirubin Negative (Negative) Urine Urobilinogen Normal mg/dL (Negative) Urine Leukocyte Esterase Trace /uL (Negative) Urine RBC 5 /hpf (0 - 3) Urine Microscopic WBC 16 /HPF (0-3) H Urine Squamous Epithelial Cells Few /hpf (<5) Urine Renal Epithelial Cells Few /hpf (None Seen) Urine Amorphous Crystals Few /hpf (None Seen) Urine Bacteria Few /hpf (None Seen) H Urine Mucus Few (None Seen) Urine Sperm Present /hpf (None Seen) Urine Creatinine 77.13 mg/dL (30.0-125.0) Urine Sodium 15 mmol/L (40-220) L Urine Glucose 3+ mg/dL (Normal) H Blood Gas Results Test 08/29/24 07:09 Arterial Blood pH 7.285 (7.350-7.450) FiO2 % 40.0 Microbiology Microbiology Date/Time Source Procedure Growth Status 08/23/24 22:30 Bronchial Washings Gram Stain - Final Complete 08/23/24 22:30 Respiratory Culture - Final Presumptive Mary albicans Complete 08/20/24 22:05 Nose MRSA Screen - Final Complete 08/19/24 11:25 Voided Urine Urine Culture - Final Complete 08/19/24 11:00 Blood Blood Culture - Final NO GROWTH AFTER 5 DAYS OF INCUBATION. Complete Labs and/or images reviewed: Labs reviewed by me, Image(s) reviewed by me Assessment/Plan Assessment/Plan Covering: Acute metabolic/toxic encephalopathy Acute hypoxic respiratory failure due to aspiration Septic shock due to aspiration pneumonia Elevated liver enzymes in the setting of septic shock KATE; most likely vasomotor nephropathy in the setting of septic shock; suspected Ozempic-induced ATN Uncontrolled diabetes mellitus type 2 with hyperglycemia Gastric obstruction vs Ileus Carotid artery injury due to temporary hemodialysis catheter s/p vascular surgery repair Right femoral tunnel hemodialysis catheter placed by vascular surgery Hyperkalemia due to KATE Leukocytosis due to septic shock Blood loss anemia Morbid obesity Reviewed blood work including ABGs Reviewed imaging studies including chest x-rays Reviewed available cultures Continue mechanical ventilation for oxygen therapy Continue sedation as indicated Continue IV vasopressors as indicated Continue IV antibiotics as indicated Continue insulin therapy as indicated with hypoglycemia protocol Avoid hepatotoxic and nephrotoxic agents Continue hemodialysis as per Nephrology Nephrology, pulmonology, GI, and surgery are following Continue close monitoring Critical care time of 99 minutes Late Entry. This medical document was created using an electronic medical record system with computerized dictation system. Although this document has been carefully reviewed, there might still be some phonetic and typographical errors. These areas are purely typographical due to imperfections of the software programs, and do not reflect any compromise in the patient's medical care. Plan discussed with: Other Date of Service: Aug 29, 2024 Billing Provider: GAIL ELIZABETH MD Common Visit Codes: 83500-[id number] CARE 30-74 MIN (99 minutes), [id number] CARE-EACH +30MIN GAIL ELIZABETH MD Aug 29, 2024 13:48
--- NOTE | 2024-08-29 16:58 | DVH ---
Exam: XY KUB ABDOMEN SINGLE VIEW Indication: high gastric drainage Comparison: XY KUB ABDOMEN SINGLE VIEW on DOS: 08/26/24 ; CT abdomen/ pelvis 08/19/2024 Technique: 2 frontal views of the abdomen. Findings: Enteric tube terminates in the stomach. Catheter overlying the right pelvis is in similar position co mpared to 08/26/2024. A Friedman catheter is in place. Nonobstructive bowel gas pattern noted. There is no definite evidence for pneumoperitoneum. Small calcifications in the right upper quadrant are consistent with cholelithiasis when compared wit h prior CT. Impression: Nonobstructive bowel gas pattern. Cholelithiasis. Stable lines and tubes.
[2024-08-29] MEDS: TPN PER PHARMACY IV NR (21:44)
[2024-08-30] VITALS (108 sets, daily range): BP systolic 86–227; BP diastolic 43–103; PULSE 73–91; RESP 17–25; TEMP 97.7–99.1; O2SAT 87–100
[2024-08-30 04:10] LABS: Hemoglobin 7.5 g/dL (13.5-17.5); Mean Corpuscular Hemoglobin 29.3 pg (28.0-32.0); Red Blood Cells 2.56 10^6/uL (4.5-5.90)
[2024-08-30 04:14] LABS: Hematocrit 22.7 % (41.0-53.0); Mean Corpuscular Volume 88.8 fL (80.0-100.0); Platelet Count (auto) 279 10^3/uL (140-450); White Blood Cell 18.4 10^3/uL (4.4-10.8)
[2024-08-30 04:23] LABS: Basophils % (manual) 0 (0.0-2.0); Myelocytes % 0; Promyelocytes % 0; Reactive Lymphocytes 0
[2024-08-30 04:32] LABS: Alanine Aminotransferase 27 U/L (7-40); Albumin 3.3 g/dL (3.2-4.8); Anion Gap 12 (5-15); Aspartate Aminotransferase 22 U/L (13-40); BUN/Creatinine Ratio 15.5 (10.0-20.0); Carbon Dioxide 23 mmol/L (20-31); Magnesium 2.1 mg/dL (1.6-2.6)
[2024-08-30 04:34] LABS: Bilirubin, Total 0.4 mg/dL (0.2-1.0)
[2024-08-30 04:35] LABS: Chloride 96 mmol/L (98-107); Glucose 177 mg/dL (74-106); Sodium 131 mmol/L (136-145)
[2024-08-30 04:36] LABS: Alkaline Phosphatase 539 U/L (46-116); Calcium 8.7 mg/dL (8.7-10.4); Phosphorus 6.9 mg/dL (2.4-5.1)
[2024-08-30 04:43] LABS: Blood Urea Nitrogen 112 mg/dL (9-23); Potassium 6.1 mmol/L (3.5-5.1)
[2024-08-30 05:09] LABS: Band Neutrophils % (manual) 5; Blast Cells 3; Eosinophils % (manual) 1 (0-7); Lymphocytes % (manual) 9 (10.0-50.0); Metamyelocytes % 1; Monocytes % (manual) 5 (0-12); Platelet Estimate Adequate
--- NOTE | 2024-08-30 05:59 | DVH ---
CHEST RADIOGRAPH Indication: pna Technique: Single frontal view of the chest was obtained COMPARISON: XY CHEST PORTABLE on DOS: 08/29/24, XY CHEST PORTABLE on DOS: 08/29/24, XY CHEST PORTABLE o n DOS: 08/28/24, XY CHEST PORTABLE on DOS: 08/27/24, XY CHEST PORTABLE on DOS: 08/26/24 FINDINGS: Lines and Tubes: Mild interval retraction of endotracheal tube which now projects with its tip approx imately 6.5 cm above the level of the jasbir. Remaining lines and tubes unchanged. Lungs: Stable appearing moderate diffuse multifocal bilateral pulmonary airspace disease. Pleura: No effusion. No pneumothorax. Cardiomediastinal contours: Unremarkable Bones: Unremarkable IMPRESSION: 1. Stable moderate diffuse multifocal bilateral pulmonary airspace disease. 2. Mild interval retraction of endotracheal tube as above. 3. Remaining lines and tubes unchanged.
[2024-08-30 06:34] LABS: Base Excess -4.9 mmol/L (-2.0-3.0)
[2024-08-30] MEDS: SODIUM CHL 0.9% 1000 ML BAG XX ONE (07:00)
--- NOTE | 2024-08-30 08:48 | DVHPN2 ---
Progress Note - Dictate Date Seen: Aug 30, 2024 Has the PT tested + for MRSA If YES, has PT been informed?: No Medical Necessity Reason Pt with a Central, PICC or Fol: Yes The following are medically ne: Central Line, Chavez Catheter Reason for chavez catheter: Strict I&O vital signs Vital Sign Date Time Temp Pulse Resp B/P (MAP) Pulse Ox O2 Delivery O2 Flow Rate FiO2 08/30/24 08:09 85 24 141/72 (95) 98 40 08/30/24 06:00 Mechanical Ventilator+ 08/30/24 04:00 99.1 99.1 Total Intake and Output 08/29/24 08/29/24 08/30/24 15:00 23:00 07:00 Intake Total 1302.426 ml 1242.735 ml 1190.145 ml Output Total 400 ml 310 ml Balance 1302.426 ml 842.735 ml 880.145 ml medications Current Medications Medications Dose Ordered Sig/Nikki Route Start Time Stop Time Status Last Admin Dose Admin Ondansetron HCl 4 mg Q4HP PRN IV 08/19/24 13:30 Nitroglycerin 0.4 mg Q5MINP PRN SL 08/19/24 13:30 Morphine Sulfate 2 mg Q30M PRN IV 08/19/24 13:30 Diagnostic Test (Pha) 1 strip ACHS 08/19/24 17:00 Cancel Norepinephrine Bitartrate 250 ml @ 3.75 mls/hr Q24H IV 08/19/24 17:15 Cancel Midazolam HCl 50 ml @ 1 mls/hr Q24H IV 08/19/24 17:15 08/30/24 06:27 15 MLS/HR Fentanyl Citrate 250 ml @ 2.5 mls/hr Q24H IV 08/19/24 17:15 08/30/24 05:48 35 MLS/HR Ipratropium [place] 0.5 mg Q6HR NEB 08/19/24 18:00 08/30/24 06:34 0.5 MG Albuterol 2.5 mg Q6HR NEB 08/19/24 18:00 08/30/24 06:34 2.5 MG Diagnostic Test (Pha) 1 strip IQ4HR 08/19/24 20:00 08/30/24 04:47 1 STRIP Insulin Human Regular IQ4HR SC 08/19/24 20:00 08/30/24 05:01 4 UNITS Dextrose 50 ml UD PRN IV 08/19/24 19:15 Pantoprazole Sodium 40 mg BID IV 08/20/24 22:00 08/29/24 21:41 40 MG Bisacodyl 10 mg DAILYP PRN DC 08/20/24 11:15 08/27/24 15:16 10 MG Acetaminophen 650 mg Q6HP PRN DC 08/21/24 01:45 08/23/24 03:36 650 MG Sucralfate 1 gm QID@0600,1130,1700,2200 08/21/24 11:30 08/28/24 21:57 1 GM Metoclopramide HCl 10 mg Q8HR GT 08/21/24 14:00 08/28/24 21:57 10 MG Fluconazole 100 ml @ 100 mls/hr DAILY IV 08/24/24 10:00 08/29/24 10:45 100 MLS/HR Amino Acids 0 ml @ 0 mls/hr PER PHARMACY IV 08/24/24 09:00 Meropenem 50 ml @ 17 mls/hr DAILY IV 08/24/24 10:00 08/29/24 11:41 17 MLS/HR Epoetin Aquilino-epbx 10,000 unit TUTHSA@2100 CT 08/26/24 21:00 08/29/24 21:41 10,000 UNIT Albumin Human 100 ml @ 100 mls/hr PRN PRN IV 08/26/24 06:45 08/27/24 07:45 100 MLS/HR Lactulose 30 ml Q4H GT 08/26/24 10:00 08/28/24 21:57 30 ML Insulin Glargine 10 units DAILY@1000 SC 08/26/24 10:00 08/29/24 10:55 10 UNITS Enoxaparin Sodium 30 mg DAILY SC 08/27/24 10:00 08/29/24 10:46 30 MG Acetylcysteine 100 mg Q6HR NEB 08/26/24 12:00 08/30/24 06:34 100 MG Propofol 100 ml @ 3.804 mls/ hr Q24H IV 08/27/24 04:30 08/30/24 07:57 30.432 MLS/HR Norepinephrine Bitartrate 32 mg/ Sodium Chloride 250 ml @ 0.469 mls/ hr Q24H IV 08/27/24 13:00 08/29/24 15:30 2.813 MLS/HR Enteral Nutritional Formula 1,000 ml 30ML/HR GT 08/28/24 09:15 Sodium Chloride 100 meq/Sodium Acetate 20 meq/ Multivitamins 10 ml/Chromium/ Copper/Manganese/ Zinc 1 ml/Insulin Human Regular 27 units/Amino Acids/ Dextrose 1,546.27 ml @ 64 mls/hr [id number] IV 08/29/24 22:00 08/30/24 21:59 08/29/24 21:44 64 MLS/HR laboratory and microbiology Laboratory Tests 08/30/24 03:15 Test 08/30/24 03:15 Range/Units Serum Glucose 177 H 74-106 mg/dL Assessment/Plan Impression: Acute hypoxic respiratory failure On mechanical ventilator Gastrointestinal hemorrhage, upper Aspiration pneumonia MAGDALENA mucous plug Obesity BMI 35.9 S/p vascular surgery for carotid repair S/p bronchoscopy w/ BAL on 08/23/24 Patient seen and examined in ICU Events: On mechanical ventilation for SBO, pneumonia sputum: angelique no bowel movement yet PEEP 8, FiO2 40% On pressors for hemodynamic support ABG reviewed vent settings changed CXR: bilateral infiltrates pulm edema/ARDS Labs and imaging reviewed White count trending down Management Vent support VAP bundle. Daily ABG and CXR while intubated Sedate for ventilator synchrony HD per Nephrology Monitor renal function Monitor electrolytes. Supplement as necessary. Continue bronchodilators/Mucomyst Continue antibiotics. Continue antifungals Follow up cultures TPN for nutritional support Accu-Cheks, ISS Patient underwent therapeutic bronchoscopy on 08/19/24 with clearing of mucous plugging. Aspirated coffee ground material removed from within the bilateral lungs. See separate procedure note for details. Continue bronchodilators. Continue antibiotics. Pressors as necessary for hemodynamic support Titrate to keep mean arterial pressure greater than 65 mmHg. Monitor hemoglobin GI recs appreciated DVT prophylaxis - Lovenox. Critical care time 35 minutes Dietary Evaluation Review Recommendations by RD: Protein Supplementation, PPN/TPN Comments: Pt is at high risk of malnutrition due to prolonged vomiting leading to inadequate nutrient intake and hypermetabolic state secondary to acute inflammation. Recommendation: 1) Start PN/TPN per pharmacy 2) If GI is accessible, consider TF Pivot 1.5Cal @ 60ml/hr along with Pro-stat 1 pk TID. Start @ 10ml/hr, increase 10ml/hr Q4H until goal rate is reached. Advance TF rate slowly and gradually to prevent Refeeding syndrome. Water Flush 50ml Q4H if allowed. TF Provision --- TF at goal volume to provide 1440 ml total volume, 2160 kcal (+300 kcal via Pro-stat = 2460 kcal), 135 gm pro (+45 gm via ProStat = 180 gm), 1093 ml H20 (meets 100% est. kcal needs, 100% est. protein needs) 3) Monitor Potassium, Phosphate, Magnesium for Refeeding syndrome 4) Des 1 pk daily For DTI 5) Continue current plan of care Expected Outcomes/Goals: Blood glucose to improve Nutrient intake to meet at least 75% estimated needs FU 2-3 days Food and Nutrition Intake (Mod: <75% est energy req 7days Plan discussed with: Other (rn) REJI GUIDRY MD Aug 30, 2024 08:48
--- NOTE | 2024-08-30 11:58 | DVHPN2 ---
Progress Note Date Seen: Aug 30, 2024 Has the PT tested + for MRSA If YES, has PT been informed?: No Medical Necessity Reason Pt with a Central, PICC or Fol: Yes The following are medically ne: Central Line, Chavez Catheter Reason for chavez catheter: Strict I&O Subjective Patient reports: Other (intubated) Review of Systems: Deferred Objective vital signs Vital Sign Date Time Temp Pulse Resp B/P (MAP) Pulse Ox O2 Delivery O2 Flow Rate FiO2 08/30/24 11:22 83 24 133/69 (90) 98 40 08/30/24 08:00 Mechanical Ventilator+ 08/30/24 04:00 99.1 99.1 Total Intake and Output 08/29/24 08/29/24 08/30/24 15:00 23:00 07:00 Intake Total 1302.426 ml 1242.735 ml 1190.145 ml Output Total 400 ml 310 ml Balance 1302.426 ml 842.735 ml 880.145 ml medications Current Medications Medications Dose Ordered Sig/Nikki Route Start Time Stop Time Status Last Admin Dose Admin Ondansetron HCl 4 mg Q4HP PRN IV 08/19/24 13:30 Nitroglycerin 0.4 mg Q5MINP PRN SL 08/19/24 13:30 Morphine Sulfate 2 mg Q30M PRN IV 08/19/24 13:30 Diagnostic Test (Pha) 1 strip ACHS 08/19/24 17:00 Cancel Norepinephrine Bitartrate 250 ml @ 3.75 mls/hr Q24H IV 08/19/24 17:15 Cancel Midazolam HCl 50 ml @ 1 mls/hr Q24H IV 08/19/24 17:15 08/30/24 10:19 13 MLS/HR Fentanyl Citrate 250 ml @ 2.5 mls/hr Q24H IV 08/19/24 17:15 08/30/24 05:48 35 MLS/HR Ipratropium [place] 0.5 mg Q6HR NEB 08/19/24 18:00 08/30/24 11:42 0.5 MG Albuterol 2.5 mg Q6HR NEB 08/19/24 18:00 08/30/24 11:42 2.5 MG Diagnostic Test (Pha) 1 strip IQ4HR 08/19/24 20:00 08/30/24 08:47 1 STRIP Insulin Human Regular IQ4HR SC 08/19/24 20:00 08/30/24 08:47 4 UNITS Dextrose 50 ml UD PRN IV 08/19/24 19:15 Pantoprazole Sodium 40 mg BID IV 08/20/24 22:00 08/29/24 21:41 40 MG Bisacodyl 10 mg DAILYP PRN ID 08/20/24 11:15 08/27/24 15:16 10 MG Acetaminophen 650 mg Q6HP PRN ID 08/21/24 01:45 08/23/24 03:36 650 MG Sucralfate 1 gm QID@0600,1130,1700,2200 08/21/24 11:30 08/28/24 21:57 1 GM Metoclopramide HCl 10 mg Q8HR GT 08/21/24 14:00 08/28/24 21:57 10 MG Fluconazole 100 ml @ 100 mls/hr DAILY IV 08/24/24 10:00 08/29/24 10:45 100 MLS/HR Amino Acids 0 ml @ 0 mls/hr PER PHARMACY IV 08/24/24 09:00 Meropenem 50 ml @ 17 mls/hr DAILY IV 08/24/24 10:00 08/29/24 11:41 17 MLS/HR Epoetin Aquilino-epbx 10,000 unit TUTHSA@2100 [place] 08/26/24 21:00 08/29/24 21:41 10,000 UNIT Albumin Human 100 ml @ 100 mls/hr PRN PRN IV 08/26/24 06:45 08/27/24 07:45 100 MLS/HR Lactulose 30 ml Q4H GT 08/26/24 10:00 08/28/24 21:57 30 ML Insulin Glargine 10 units DAILY@1000 SC 08/26/24 10:00 08/30/24 10:44 10 UNITS Enoxaparin Sodium 30 mg DAILY SC 08/27/24 10:00 08/30/24 10:43 30 MG Acetylcysteine 100 mg Q6HR NEB 08/26/24 12:00 08/30/24 11:42 100 MG Propofol 100 ml @ 3.804 mls/ hr Q24H IV 08/27/24 04:30 08/30/24 10:19 30.432 MLS/HR Norepinephrine Bitartrate 32 mg/ Sodium Chloride 250 ml @ 0.469 mls/ hr Q24H IV 08/27/24 13:00 08/29/24 15:30 2.813 MLS/HR Enteral Nutritional Formula 1,000 ml 30ML/HR GT 08/28/24 09:15 Sodium Chloride 100 meq/Sodium Acetate 20 meq/ Multivitamins 10 ml/Chromium/ Copper/Manganese/ Zinc 1 ml/Insulin Human Regular 27 units/Amino Acids/ Dextrose 1,546.27 ml @ 64 mls/hr [id number] IV 08/29/24 22:00 08/30/24 21:59 08/29/24 21:44 64 MLS/HR Sodium Chloride 100 meq/Sodium Acetate 20 meq/ Multivitamins 10 ml/Chromium/ Copper/Manganese/ Zinc 1 ml/Insulin Human Regular 30 units/Amino Acids/ Dextrose 1,546.3 ml @ 64 mls/hr [id number] IV 08/30/24 22:00 08/31/24 21:59 Examination: GENERAL:Abnormal, LUNGS:Abnormal, CVS:Abnormal, ABDOMEN:Abnormal, SKIN:Abnormal laboratory and microbiology Laboratory Tests 08/30/24 03:15 Test 08/30/24 03:15 Range/Units Serum Glucose 177 H 74-106 mg/dL Microbiology Date/Time Source Procedure Growth Status 08/23/24 22:30 Bronchial Washings Gram Stain - Final Complete 08/23/24 22:30 Respiratory Culture - Final Presumptive Mary albicans Complete 08/20/24 22:05 Nose MRSA Screen - Final Complete 08/19/24 11:25 Voided Urine Urine Culture - Final Complete 08/19/24 11:00 Blood Blood Culture - Final NO GROWTH AFTER 5 DAYS OF INCUBATION. Complete Problem List/Assessment/Plan Problem List/Assessment/Plan Acute kidney injury in the setting of hypotension and volume depletion -> ATN believed to be Ozempic induced Uncontrolled diabetes-> HONK acute respiratory failure due to aspiration pneumonia gastric obstruction vs Illeus w/ persistent vomiting carotid artery injury due to temp HD cath s/p vascular surgery repair femoral tunnel HD catheter placed by vascular hyperkalemia HD today for better metabolic clearence and hyperkalemia renal function has not improved GI eval due to high output strict I/O Patient is critically ill critical care time spent 50 minutes Guarded prognosis Plan discussed with: Other My Orders My Orders Orders - MERLIN ROBLES MD Procedure Category Date Status Time Hemodialysis Orders ORDERS 08/30/24 Transmitted 06:47 Dialysis Nursing ROHINI 08/30/24 In Process Message 06:47 Document Fluid Input ROHINI 08/30/24 In Process And Outpu 06:47 Dietary Evaluation Review Recommendations by RD: Protein Supplementation, PPN/TPN Comments: Pt is at high risk of malnutrition due to prolonged vomiting leading to inadequate nutrient intake and hypermetabolic state secondary to acute inflammation. Recommendation: 1) Start PN/TPN per pharmacy 2) If GI is accessible, consider TF Pivot 1.5Cal @ 60ml/hr along with Pro-stat 1 pk TID. Start @ 10ml/hr, increase 10ml/hr Q4H until goal rate is reached. Advance TF rate slowly and gradually to prevent Refeeding syndrome. Water Flush 50ml Q4H if allowed. TF Provision --- TF at goal volume to provide 1440 ml total volume, 2160 kcal (+300 kcal via Pro-stat = 2460 kcal), 135 gm pro (+45 gm via ProStat = 180 gm), 1093 ml H20 (meets 100% est. kcal needs, 100% est. protein needs) 3) Monitor Potassium, Phosphate, Magnesium for Refeeding syndrome 4) Dse 1 pk daily For DTI 5) Continue current plan of care Expected Outcomes/Goals: Blood glucose to improve Nutrient intake to meet at least 75% estimated needs FU 2-3 days Food and Nutrition Intake (Mod: <75% est energy req 7days MERLIN ROBLES MD Aug 30, 2024 11:58
[2024-08-30 19:10] LABS: Potassium 4.2 mmol/L (3.5-5.1)
[2024-08-30 19:11] LABS: Anion Gap 8 (5-15); Carbon Dioxide 28 mmol/L (20-31); Chloride 98 mmol/L (98-107); Sodium 134 mmol/L (136-145)
[2024-08-30 19:15] LABS: Calcium 8.4 mg/dL (8.7-10.4)
[2024-08-30 19:16] LABS: BUN/Creatinine Ratio 14.9 (10.0-20.0)
[2024-08-30 19:19] LABS: Blood Urea Nitrogen 65 mg/dL (9-23); Glucose 183 mg/dL (74-106)
[2024-08-30] MEDS: fentaNYL Drip 2500mCg/250mlNS 250 ML IV ONE (19:57)
[2024-08-30] MEDS: fentaNYL Drip 2500mCg/250mlNS 250 ML IV SCH (21:11)
--- NOTE | 2024-08-30 21:24 | DVHPN2 ---
Subjective Intubated and sedated Reviewed: Care Plan, H&P, Labs, Medications, Previous Orders, Radiology, Other (Consultations) Changes from previous H/P or p: No Changes Objective Vitals Vital Signs Date Time Temp Pulse Resp B/P (MAP) Pulse Ox O2 Delivery O2 Flow Rate FiO2 08/30/24 21:00 98.4 77 24 112/61 (78) 96 98.4 129/63 (85) 08/30/24 20:07 40 08/30/24 18:00 Mechanical Ventilator+ 08/30/24 12:00 10 Intake/Output Intake and Output 08/30/24 07:00 Intake Total 3735.306 ml Output Total 710 ml Balance 3025.306 ml Intake Oral 0 ml IV Total 3710.306 ml Other 25 ml Output Urine Total 210 ml Gastric Drainage Total 500 ml General Appearance: Other (Intubated and sedated) HEENT: Atraumatic Lungs: Other (Mechanical ventilation sounds) Cardiovascular: Normal S1, Normal S2, Other (Tachycardia) Abdomen: Normal bowel sounds, Soft Genitourinary: Other (Friedman's) Neuro: Other (Intubated and sedated) Psych/Mental Status: Other (Intubated and sedated) Medications Current Medications Medications Dose Ordered Sig/Nikki Route Start Time Stop Time Status Last Admin Dose Admin Ondansetron HCl 4 mg Q4HP PRN IV 08/19/24 13:30 Nitroglycerin 0.4 mg Q5MINP PRN SL 08/19/24 13:30 Diagnostic Test (Pha) 1 strip ACHS 08/19/24 17:00 Cancel Norepinephrine Bitartrate 250 ml @ 3.75 mls/hr Q24H IV 08/19/24 17:15 Cancel Midazolam HCl 50 ml @ 1 mls/hr Q24H IV 08/19/24 17:15 08/30/24 18:04 1 MLS/HR Ipratropium [place] 0.5 mg Q6HR NEB 08/19/24 18:00 08/30/24 18:38 0.5 MG Albuterol 2.5 mg Q6HR NEB 08/19/24 18:00 08/30/24 18:38 2.5 MG Diagnostic Test (Pha) 1 strip IQ4HR 08/19/24 20:00 08/30/24 19:57 1 STRIP Insulin Human Regular IQ4HR SC 08/19/24 20:00 08/30/24 19:59 4 UNITS Dextrose 50 ml UD PRN IV 08/19/24 19:15 Pantoprazole Sodium 40 mg BID IV 08/20/24 22:00 08/30/24 13:57 40 MG Bisacodyl 10 mg DAILYP PRN [place] 08/20/24 11:15 08/27/24 15:16 10 MG Acetaminophen 650 mg Q6HP PRN [place] 08/21/24 01:45 08/23/24 03:36 650 MG Sucralfate 1 gm QID@0600,1130,1700,2200 08/21/24 11:30 08/28/24 21:57 1 GM Metoclopramide HCl 10 mg Q8HR GT 08/21/24 14:00 08/28/24 21:57 10 MG Fluconazole 100 ml @ 100 mls/hr DAILY IV 08/24/24 10:00 08/30/24 13:56 100 MLS/HR Amino Acids 0 ml @ 0 mls/hr PER PHARMACY IV 08/24/24 09:00 Meropenem 50 ml @ 17 mls/hr DAILY IV 08/24/24 10:00 08/30/24 13:57 17 MLS/HR Epoetin Aquilino-epbx 10,000 unit TUTHSA@2100 [place] 08/26/24 21:00 08/29/24 21:41 10,000 UNIT Albumin Human 100 ml @ 100 mls/hr PRN PRN IV 08/26/24 06:45 08/27/24 07:45 100 MLS/HR Lactulose 30 ml Q4H GT 08/26/24 10:00 08/28/24 21:57 30 ML Insulin Glargine 10 units DAILY@1000 SC 08/26/24 10:00 08/30/24 10:44 10 UNITS Enoxaparin Sodium 30 mg DAILY SC 08/27/24 10:00 08/30/24 10:43 30 MG Acetylcysteine 100 mg Q6HR NEB 08/26/24 12:00 08/30/24 18:38 100 MG Propofol 100 ml @ 3.804 mls/ hr Q24H IV 08/27/24 04:30 08/30/24 20:26 30.432 MLS/HR Norepinephrine Bitartrate 32 mg/ Sodium Chloride 250 ml @ 0.469 mls/ hr Q24H IV 08/27/24 13:00 08/29/24 15:30 2.813 MLS/HR Enteral Nutritional Formula 1,000 ml 30ML/HR GT 08/28/24 09:15 Sodium Chloride 100 meq/Sodium Acetate 20 meq/ Multivitamins 10 ml/Chromium/ Copper/Manganese/ Zinc 1 ml/Insulin Human Regular 27 units/Amino Acids/ Dextrose 1,546.27 ml @ 64 mls/hr [id number] IV 08/29/24 22:00 08/30/24 21:59 08/29/24 21:44 64 MLS/HR Sodium Chloride 100 meq/Sodium Acetate 20 meq/ Multivitamins 10 ml/Chromium/ Copper/Manganese/ Zinc 1 ml/Insulin Human Regular 30 units/Amino Acids/ Dextrose 1,546.3 ml @ 64 mls/hr [id number] IV 08/30/24 22:00 08/31/24 21:59 Fentanyl Citrate 250 ml @ 2.5 mls/hr Q24H IV 08/30/24 20:00 Laboratory Results Laboratory Tests 08/30/24 03:15 08/30/24 18:49 Chemistry Test 08/30/24 03:15 08/30/24 18:49 Albumin 3.3 g/dL (3.2-4.8) Calcium Level 8.7 mg/dL (8.7-10.4) 8.4 mg/dL (8.7-10.4) L Magnesium Level 2.1 mg/dL (1.6-2.6) Phosphorus Level 6.9 mg/dL (2.4-5.1) H Total Protein 7.0 g/dL (5.7-8.2) LFT Test 08/30/24 03:15 Alanine Aminotransferase (ALT) 27 U/L (7-40) Alkaline Phosphatase 539 U/L (46-116) H Aspartate Amino Transferase (AST) 22 U/L (13-40) Total Bilirubin 0.4 mg/dL (0.2-1.0) Urinalysis Test 08/19/24 11:25 Urine Color Colorless (Yellow) Urine Clarity Ex.turbid (Clear) Urine pH 6.5 (5.0-9.0) Urine Specific [place] 1.017 (1.001-1.035) Urine Protein 1+ (Negative) H Urine Ketones Negative (Negative) Urine Blood 1+ /uL (Negative) H Urine Nitrite Negative (Negative) Urine Bilirubin Negative (Negative) Urine Urobilinogen Normal mg/dL (Negative) Urine Leukocyte Esterase Trace /uL (Negative) Urine RBC 5 /hpf (0 - 3) Urine Microscopic WBC 16 /HPF (0-3) H Urine Squamous Epithelial Cells Few /hpf (<5) Urine Renal Epithelial Cells Few /hpf (None Seen) Urine Amorphous Crystals Few /hpf (None Seen) Urine Bacteria Few /hpf (None Seen) H Urine Mucus Few (None Seen) Urine Sperm Present /hpf (None Seen) Urine Creatinine 77.13 mg/dL (30.0-125.0) Urine Sodium 15 mmol/L (40-220) L Urine Glucose 3+ mg/dL (Normal) H Blood Gas Results Test 08/30/24 06:21 Arterial Blood pH 7.219 (7.350-7.450) FiO2 % 40.0 Microbiology Microbiology Date/Time Source Procedure Growth Status 08/23/24 22:30 Bronchial Washings Gram Stain - Final Complete 08/23/24 22:30 Respiratory Culture - Final Presumptive Mary albicans Complete 08/20/24 22:05 Nose MRSA Screen - Final Complete 08/19/24 11:25 Voided Urine Urine Culture - Final Complete 08/19/24 11:00 Blood Blood Culture - Final NO GROWTH AFTER 5 DAYS OF INCUBATION. Complete Labs and/or images reviewed: Labs reviewed by me, Image(s) reviewed by me Assessment/Plan Assessment/Plan Covering: Acute metabolic/toxic encephalopathy Acute hypoxic respiratory failure due to aspiration Septic shock due to aspiration pneumonia Elevated liver enzymes in the setting of septic shock KATE; most likely vasomotor nephropathy in the setting of septic shock; suspected Ozempic-induced ATN Uncontrolled diabetes mellitus type 2 with hyperglycemia Gastric obstruction vs Ileus Carotid artery injury due to temporary hemodialysis catheter s/p vascular surgery repair Right femoral tunnel hemodialysis catheter placed by vascular surgery Hyperkalemia due to KATE Leukocytosis due to septic shock Blood loss anemia Morbid obesity Reviewed blood work including ABGs Reviewed imaging studies including chest x-rays Reviewed available cultures Continue mechanical ventilation for oxygen therapy Continue sedation as indicated Continue IV vasopressors as indicated Continue IV antibiotics as indicated Continue insulin therapy as indicated with hypoglycemia protocol Avoid hepatotoxic and nephrotoxic agents Continue hemodialysis as per Nephrology Nephrology, pulmonology, GI, and surgery are following Continue close monitoring Critical care time of 60 minutes Late Entry. This medical document was created using an electronic medical record system with computerized dictation system. Although this document has been carefully reviewed, there might still be some phonetic and typographical errors. These areas are purely typographical due to imperfections of the software programs, and do not reflect any compromise in the patient's medical care. Plan discussed with: Other (Nurse) My Orders Orders - GAIL ELIZABETH MD Procedure Category Date Status Time Complete Blood Count LAB 08/31/24 Verified 04:00 Chest Portable XY 08/31/24 Logged 04:00 Fentanyl Drip PHA 08/30/24 In Process 2500mcg/250mlns 20:00 Chest Xray 1 View XY 08/31/24 Logged 04:00 Abg W/ Co-Ox RT 08/31/24 Logged 06:00 Date of Service: Aug 30, 2024 Billing Provider: GAIL ELIZABETH MD Common Visit Codes: [id number] CARE 30-74 MIN (60 minutes) GAIL ELIZABETH MD Aug 30, 2024 21:24
[2024-08-30] MEDS: TPN PER PHARMACY IV NR (22:01)
[2024-08-31] VITALS (111 sets, daily range): BP systolic 74–157; BP diastolic 34–107; PULSE 74–94; RESP 16–25; TEMP 97.2–99.5; O2SAT 87–100
--- NOTE | 2024-08-31 03:42 | DVH ---
CHEST RADIOGRAPH Indication: Respiratory failure Technique: Single frontal view of the chest was obtained COMPARISON: XY CHEST PORTABLE on DOS: 08/30/24, XY CHEST PORTABLE on DOS: 08/29/24, XY CHEST PORTABLE o n DOS: 08/29/24, XY CHEST PORTABLE on DOS: 08/28/24, XY CHEST PORTABLE on DOS: 08/27/24 FINDINGS: Lines and Tubes: Unchanged. Lungs: Stable appearing diffuse multifocal patchy bilateral pulmonary airspace disease, greater on th e left than the right. Pleura: No effusion. No pneumothorax. Cardiomediastinal contours: Unremarkable Bones: Unremarkable IMPRESSION: 1. Stable appearing diffuse multifocal patchy bilateral pulmonary airspace disease, greater on the le ft than the right. 2. Lines and tubes unchanged.
[2024-08-31 04:01] LABS: White Blood Cell 14.1 10^3/uL (4.4-10.8)
[2024-08-31 04:03] LABS: Hematocrit 20.5 % (41.0-53.0); Hemoglobin 7.1 g/dL (13.5-17.5); Mean Corpuscular Hemoglobin 29.9 pg (28.0-32.0); Mean Corpuscular Hgb Conc. 34.4 g/dL (32.0-36.0); Mean Corpuscular Volume 86.9 fL (80.0-100.0); Platelet Count (auto) 243 10^3/uL (140-450); Red Blood Cells 2.36 10^6/uL (4.5-5.90); Red Cell Distribution Width 15.4 % (11.8-14.3)
[2024-08-31 04:06] LABS: Basophils % (manual) 0 (0.0-2.0); Blast Cells 0; Myelocytes % 0; Promyelocytes % 0; Reactive Lymphocytes 0
[2024-08-31 04:14] LABS: Alanine Aminotransferase 25 U/L (7-40); Anion Gap 11 (5-15); Aspartate Aminotransferase 31 U/L (13-40); BUN/Creatinine Ratio 16.4 (10.0-20.0); Calcium 8.8 mg/dL (8.7-10.4); Carbon Dioxide 26 mmol/L (20-31); Magnesium 1.9 mg/dL (1.6-2.6); Potassium 4.1 mmol/L (3.5-5.1); Total Protein 6.7 g/dL (5.7-8.2)
[2024-08-31 04:21] LABS: Alkaline Phosphatase 480 U/L (46-116); Bilirubin, Total 0.3 mg/dL (0.2-1.0); Blood Urea Nitrogen 79 mg/dL (9-23); Chloride 97 mmol/L (98-107); Glucose 144 mg/dL (74-106); Phosphorus 5.4 mg/dL (2.4-5.1); Sodium 134 mmol/L (136-145)
[2024-08-31 04:45] LABS: Band Neutrophils % (manual) 2; Eosinophils % (manual) 3 (0-7); Lymphocytes % (manual) 13 (10.0-50.0); Metamyelocytes % 1; Monocytes % (manual) 5 (0-12)
[2024-08-31 04:46] LABS: Platelet Estimate Adequate
[2024-08-31] MEDS: SODIUM CHL 0.9% 1000 ML BAG XX ONE (07:00)
[2024-08-31 07:02] LABS: Base Excess -0.8 mmol/L (-2.0-3.0)
--- NOTE | 2024-08-31 10:35 | DVHPN2 ---
Progress Note - Dictate Date Seen: Aug 31, 2024 Has the PT tested + for MRSA If YES, has PT been informed?: No Medical Necessity Reason Pt with a Central, PICC or Fol: Yes The following are medically ne: Central Line, Chavez Catheter Reason for chavez catheter: Strict I&O vital signs Vital Sign Date Time Temp Pulse Resp B/P (MAP) Pulse Ox O2 Delivery O2 Flow Rate FiO2 08/31/24 10:05 80 24 101/44 (63) 96 30 08/31/24 08:00 Mechanical Ventilator+ 08/31/24 06:45 98.1 98.1 08/30/24 12:00 10 Total Intake and Output 08/30/24 08/30/24 08/31/24 15:00 23:00 07:00 Intake Total 1177.237 ml 1031.175 ml 999.665 ml Output Total 3775 ml 350 ml Balance 1177.237 ml -2743.825 ml 649.665 ml medications Current Medications Medications Dose Ordered Sig/Nikki Route Start Time Stop Time Status Last Admin Dose Admin Ondansetron HCl 4 mg Q4HP PRN IV 08/19/24 13:30 Nitroglycerin 0.4 mg Q5MINP PRN SL 08/19/24 13:30 Diagnostic Test (Pha) 1 strip ACHS 08/19/24 17:00 Cancel Norepinephrine Bitartrate 250 ml @ 3.75 mls/hr Q24H IV 08/19/24 17:15 Cancel Midazolam HCl 50 ml @ 1 mls/hr Q24H IV 08/19/24 17:15 08/31/24 08:01 7 MLS/HR Ipratropium [place] 0.5 mg Q6HR NEB 08/19/24 18:00 08/31/24 06:31 0.5 MG Albuterol 2.5 mg Q6HR NEB 08/19/24 18:00 08/31/24 06:31 2.5 MG Diagnostic Test (Pha) 1 strip IQ4HR 08/19/24 20:00 08/31/24 08:00 1 STRIP Insulin Human Regular IQ4HR SC 08/19/24 20:00 08/31/24 08:36 4 UNITS Dextrose 50 ml UD PRN IV 08/19/24 19:15 Pantoprazole Sodium 40 mg BID IV 08/20/24 22:00 08/30/24 21:55 40 MG Bisacodyl 10 mg DAILYP PRN [place] 08/20/24 11:15 08/27/24 15:16 10 MG Acetaminophen 650 mg Q6HP PRN [place] 08/21/24 01:45 08/23/24 03:36 650 MG Sucralfate 1 gm QID@0600,1130,1700,2200 GT 08/21/24 11:30 08/30/24 21:55 1 GM Metoclopramide HCl 10 mg Q8HR GT 08/21/24 14:00 08/28/24 21:57 10 MG Fluconazole 100 ml @ 100 mls/hr DAILY IV 08/24/24 10:00 08/30/24 13:56 100 MLS/HR Amino Acids 0 ml @ 0 mls/hr PER PHARMACY IV 08/24/24 09:00 Meropenem 50 ml @ 17 mls/hr DAILY IV 08/24/24 10:00 08/30/24 13:57 17 MLS/HR Epoetin Aquilino-epbx 10,000 unit TUTHSA@2100 [place] 08/26/24 21:00 08/29/24 21:41 10,000 UNIT Albumin Human 100 ml @ 100 mls/hr PRN PRN IV 08/26/24 06:45 08/27/24 07:45 100 MLS/HR Lactulose 30 ml Q4H GT 08/26/24 10:00 08/28/24 21:57 30 ML Insulin Glargine 10 units DAILY@1000 SC 08/26/24 10:00 08/30/24 10:44 10 UNITS Enoxaparin Sodium 30 mg DAILY SC 08/27/24 10:00 08/30/24 10:43 30 MG Acetylcysteine 100 mg Q6HR NEB 08/26/24 12:00 08/31/24 06:31 100 MG Propofol 100 ml @ 3.804 mls/ hr Q24H IV 08/27/24 04:30 08/31/24 09:52 19.02 MLS/HR Norepinephrine Bitartrate 32 mg/ Sodium Chloride 250 ml @ 0.469 mls/ hr Q24H IV 08/27/24 13:00 08/29/24 15:30 2.813 MLS/HR Enteral Nutritional Formula 1,000 ml 30ML/HR GT 08/28/24 09:15 Sodium Chloride 100 meq/Sodium Acetate 20 meq/ Multivitamins 10 ml/Chromium/ Copper/Manganese/ Zinc 1 ml/Insulin Human Regular 30 units/Amino Acids/ Dextrose 1,546.3 ml @ 64 mls/hr [id number] IV 08/30/24 22:00 08/31/24 21:59 08/30/24 22:01 64 MLS/HR Fentanyl Citrate 250 ml @ 2.5 mls/hr Q24H IV 08/30/24 20:00 08/31/24 04:51 35 MLS/HR laboratory and microbiology Laboratory Tests 08/31/24 03:10 Test 08/31/24 03:10 Range/Units Serum Glucose 144 H 74-106 mg/dL Assessment/Plan Impression: Acute hypoxic respiratory failure On mechanical ventilator Gastrointestinal hemorrhage, upper Aspiration pneumonia MAGDALENA mucous plug Obesity BMI 35.9 S/p vascular surgery for carotid repair S/p bronchoscopy w/ BAL on 08/23/24 Patient seen and examined in ICU Events: On mechanical ventilation for SBO, pneumonia sputum: angelique no bowel movement yet PEEP 8, FiO2 40% On pressors for hemodynamic support ABG reviewed vent settings changed CXR: bilateral infiltrates pulm edema/ARDS Labs and imaging reviewed White count trending down Management for SBO obtain KUB reglan iv abd soft clinically cont bowel regimen Vent support Daily ABG and CXR while intubated Sedate for ventilator synchrony daily awakening trials HD per Nephrology Monitor renal function Monitor electrolytes. Supplement as necessary. Continue bronchodilators/Mucomyst Continue antibiotics. Continue antifungals Follow up cultures TPN for nutritional support Accu-Cheks, ISS Continue bronchodilators. Continue antibiotics. Pressors as necessary for hemodynamic support Titrate to keep mean arterial pressure greater than 65 mmHg. Monitor hemoglobin GI recs appreciated DVT prophylaxis - Lovenox. Critical care time 35 minutes Dietary Evaluation Review Recommendations by RD: Protein Supplementation, PPN/TPN Comments: Pt is at high risk of malnutrition due to prolonged vomiting leading to inadequate nutrient intake and hypermetabolic state secondary to acute inflammation. Recommendation: 1) Start PN/TPN per pharmacy 2) If GI is accessible, consider TF Pivot 1.5Cal @ 60ml/hr along with Pro-stat 1 pk TID. Start @ 10ml/hr, increase 10ml/hr Q4H until goal rate is reached. Advance TF rate slowly and gradually to prevent Refeeding syndrome. Water Flush 50ml Q4H if allowed. TF Provision --- TF at goal volume to provide 1440 ml total volume, 2160 kcal (+300 kcal via Pro-stat = 2460 kcal), 135 gm pro (+45 gm via ProStat = 180 gm), 1093 ml H20 (meets 100% est. kcal needs, 100% est. protein needs) 3) Monitor Potassium, Phosphate, Magnesium for Refeeding syndrome 4) Des 1 pk daily For DTI 5) Continue current plan of care Expected Outcomes/Goals: Blood glucose to improve Nutrient intake to meet at least 75% estimated needs FU 2-3 days Food and Nutrition Intake (Mod: <75% est energy req 7days Protein Calorie Malnutrition: Severe Plan discussed with: Other (rn) REJI GUIDRY MD Aug 31, 2024 10:35
--- NOTE | 2024-08-31 11:51 | DVH ---
Date: 08/31/2024 10:30 AM Examination: XY KUB ABDOMEN SINGLE VIEW History: BOWEL OBSTRUCTION VS ILEUS Comparison: XY KUB ABDOMEN SINGLE VIEW on DOS: 08/29/24, XY KUB ABDOMEN SINGLE VIEW on DOS: 08/26/24 TECHNIQUE: Frontal views of the abdomen was obtained. FINDINGS: Bowel gas pattern is unremarkable. The lung bases are unremarkable. No acute osseous abnormality identified. Gallstones overlying the right upper quadrant. Nasogastric tube tip in the stomach. Right central ve nous femoral approach catheter present. IMPRESSION: Nonobstructive bowel gas pattern. Required gallstones overlying the right upper quadrant.
[2024-08-31] MEDS ORDERED: DEXTROSE (50%) 50ML SYRG IV PRN (12:30)
--- NOTE | 2024-08-31 13:33 | DVHPN2 ---
Progress Note Date Seen: Aug 31, 2024 Has the PT tested + for MRSA If YES, has PT been informed?: No Medical Necessity Reason Pt with a Central, PICC or Fol: Yes The following are medically ne: Central Line, Chavez Catheter Reason for chavez catheter: Strict I&O Subjective Patient reports: Other (intubated) Review of Systems: Deferred Objective vital signs Vital Sign Date Time Temp Pulse Resp B/P (MAP) Pulse Ox O2 Delivery O2 Flow Rate FiO2 08/31/24 12:52 87 24 130/59 (82) 96 30 08/31/24 10:00 Mechanical Ventilator+ 08/31/24 06:45 98.1 98.1 08/30/24 12:00 10 Total Intake and Output 08/30/24 08/30/24 08/31/24 15:00 23:00 07:00 Intake Total 1177.237 ml 1031.175 ml 999.665 ml Output Total 3775 ml 350 ml Balance 1177.237 ml -2743.825 ml 649.665 ml medications Current Medications Medications Dose Ordered Sig/Nikik Route Start Time Stop Time Status Last Admin Dose Admin Ondansetron HCl 4 mg Q4HP PRN IV 08/19/24 13:30 Diagnostic Test (Pha) 1 strip ACHS 08/19/24 17:00 Cancel Norepinephrine Bitartrate 250 ml @ 3.75 mls/hr Q24H IV 08/19/24 17:15 Cancel Midazolam HCl 50 ml @ 1 mls/hr Q24H IV 08/19/24 17:15 08/31/24 08:01 7 MLS/HR Ipratropium [place] 0.5 mg Q6HR NEB 08/19/24 18:00 08/31/24 12:52 0.5 MG Albuterol 2.5 mg Q6HR NEB 08/19/24 18:00 08/31/24 12:52 2.5 MG Pantoprazole Sodium 40 mg BID IV 08/20/24 22:00 08/30/24 21:55 40 MG Acetaminophen 650 mg Q6HP PRN CO 08/21/24 01:45 08/23/24 03:36 650 MG Sucralfate 1 gm QID@0600,1130,1700,2200 GT 08/21/24 11:30 08/30/24 21:55 1 GM Amino Acids 0 ml @ 0 mls/hr PER PHARMACY IV 08/24/24 09:00 Meropenem 50 ml @ 17 mls/hr DAILY IV 08/24/24 10:00 08/30/24 13:57 17 MLS/HR Epoetin Aquilino-epbx 10,000 unit TUTHSA@2100 SC 08/26/24 21:00 08/29/24 21:41 10,000 UNIT Albumin Human 100 ml @ 100 mls/hr PRN PRN IV 08/26/24 06:45 08/27/24 07:45 100 MLS/HR Insulin Glargine 10 units DAILY@1000 SC 08/26/24 10:00 08/31/24 11:37 10 UNITS Enoxaparin Sodium 30 mg DAILY SC 08/27/24 10:00 08/31/24 10:00 30 MG Acetylcysteine 100 mg Q6HR NEB 08/26/24 12:00 08/31/24 12:52 100 MG Propofol 100 ml @ 3.804 mls/ hr Q24H IV 08/27/24 04:30 08/31/24 09:52 19.02 MLS/HR Norepinephrine Bitartrate 32 mg/ Sodium Chloride 250 ml @ 0.469 mls/ hr Q24H IV 08/27/24 13:00 08/29/24 15:30 2.813 MLS/HR Enteral Nutritional Formula 1,000 ml 30ML/HR GT 08/28/24 09:15 Sodium Chloride 100 meq/Sodium Acetate 20 meq/ Multivitamins 10 ml/Chromium/ Copper/Manganese/ Zinc 1 ml/Insulin Human Regular 30 units/Amino Acids/ Dextrose 1,546.3 ml @ 64 mls/hr [id number] IV 08/30/24 22:00 08/31/24 21:59 08/30/24 22:01 64 MLS/HR Fentanyl Citrate 250 ml @ 2.5 mls/hr Q24H IV 08/30/24 20:00 08/31/24 11:00 30 MLS/HR Sodium Chloride 120 meq/Sodium Acetate 10 meq/ Magnesium Sulfate 4 meq/ Multivitamins 10 ml/Chromium/ Copper/Manganese/ Zinc 1 ml/Insulin Human Regular 24 units/Amino Acids/ Dextrose 1,597.24 ml @ 66 mls/hr [id number] IV 08/31/24 22:00 09/01/24 21:59 Diagnostic Test (Pha) 1 strip IQ4HR 08/31/24 16:00 UNV Insulin Human Regular IQ4HR SC 08/31/24 16:00 UNV Dextrose 50 ml UD PRN IV 08/31/24 12:30 UNV Micafungin Sodium 100 mg/Sodium Chloride 100 ml @ 100 mls/hr DAILY IV 09/01/24 10:00 UNV Examination: GENERAL:Abnormal, MSK:Abnormal, SKIN:Abnormal, NEURO:Abnormal laboratory and microbiology Laboratory Tests 08/31/24 03:10 Test 08/31/24 03:10 Range/Units Serum Glucose 144 H 74-106 mg/dL Microbiology Date/Time Source Procedure Growth Status 08/23/24 22:30 Bronchial Washings Gram Stain - Final Complete 08/23/24 22:30 Respiratory Culture - Final Presumptive Mary albicans Complete 08/20/24 22:05 Nose MRSA Screen - Final Complete 08/19/24 11:25 Voided Urine Urine Culture - Final Complete 08/19/24 11:00 Blood Blood Culture - Final NO GROWTH AFTER 5 DAYS OF INCUBATION. Complete Problem List/Assessment/Plan Problem List/Assessment/Plan Acute kidney injury in the setting of hypotension and volume depletion -> ATN believed to be Ozempic induced Uncontrolled diabetes-> HONK acute respiratory failure due to aspiration pneumonia gastric obstruction vs Illeus w/ persistent vomiting carotid artery injury due to temp HD cath s/p vascular surgery repair femoral tunnel HD catheter placed by vascular hyperkalemia seen on HD today on levophed 2 mcg Patient is critically ill critical care time spent 50 minutes Guarded prognosis epogen Plan discussed with: Other My Orders My Orders Orders - KASSANDRA VARGAS MD Procedure Category Date Status Time PTPTT LAB 08/31/24 In Process 13:00 Prothrombin Time W/ LAB 08/31/24 In Process INR 13:00 Dietary Evaluation Review Recommendations by RD: Protein Supplementation, PPN/TPN Comments: Pt is at high risk of malnutrition due to prolonged vomiting leading to inadequate nutrient intake and hypermetabolic state secondary to acute inflammation. Recommendation: 1) Start PN/TPN per pharmacy 2) If GI is accessible, consider TF Pivot 1.5Cal @ 60ml/hr along with Pro-stat 1 pk TID. Start @ 10ml/hr, increase 10ml/hr Q4H until goal rate is reached. Advance TF rate slowly and gradually to prevent Refeeding syndrome. Water Flush 50ml Q4H if allowed. TF Provision --- TF at goal volume to provide 1440 ml total volume, 2160 kcal (+300 kcal via Pro-stat = 2460 kcal), 135 gm pro (+45 gm via ProStat = 180 gm), 1093 ml H20 (meets 100% est. kcal needs, 100% est. protein needs) 3) Monitor Potassium, Phosphate, Magnesium for Refeeding syndrome 4) Des 1 pk daily For DTI 5) Continue current plan of care Expected Outcomes/Goals: Blood glucose to improve Nutrient intake to meet at least 75% estimated needs FU 2-3 days Food and Nutrition Intake (Mod: <75% est energy req 7days Protein Calorie Malnutrition: Severe KASSANDRA VARGAS MD Aug 31, 2024 13:33
[2024-08-31 13:53] LABS: INR 1.04 (0.9-1.15); Partial Thromboplastin Time 27.2 SEC (24.5-34.5)
--- NOTE | 2024-08-31 15:25 | DVHCONRES ---
Date Seen: Aug 31, 2024 Resident Creating Document: RUBY PINEDA RESIDENT Reason for Consultation Unable to pass contrast beyond stomach History of Present Illness This 44-year-old male with a history of hypertension and diabetes came to the emergency room with a history of disorientation etc. stasis and ataxia for 10 days. Patient has got history of diabetes and hyperglycemia. And hypotension. Patient was given some or some thick also before she got got more lethargic. Sugar was found to be 505 on in the ER and then from there admitted. Patient also was found to intubated because of altered level of consciousness and had some GI bleed in the hemoglobin coffee-ground material which stopped now. Yesterday contrast was ingested but contrast is not going beyond stomach, reconsulted GI team. Unable to obtain ROS due to patient clinical status. Per ICU nurse patient has not passed bowel movements for past 2 days. Recommended KUB today, NG tube with intermittent suction, TPN. We will closely monitor. Allergies: Coded Allergies: NO KNOWN ALLERGIES (Unverified , 10/02/14) Current Medications Current Medications Medications (Trade) Dose Ordered Sig/Nikki Route PRN Reason Start Time Stop Time Status Last Admin Sodium Chloride 100 meq/Sodium Acetate 20 meq/ Multivitamins 10 ml/Chromium/ Copper/Manganese/ Zinc 1 ml/Insulin Human Regular 30 units/Amino Acids/ Dextrose 1,546.3 ml @ 64 mls/hr [id number] IV 08/30/24 22:00 08/31/24 21:59 08/30/24 22:01 Fentanyl Citrate 250 ml @ 2.5 mls/hr Q24H IV 08/30/24 20:00 08/31/24 11:00 Sodium Chloride 120 meq/Sodium Acetate 10 meq/ Magnesium Sulfate 4 meq/ Multivitamins 10 ml/Chromium/ Copper/Manganese/ Zinc 1 ml/Insulin Human Regular 24 units/Amino Acids/ Dextrose 1,597.24 ml @ 66 mls/hr [id number] IV 08/31/24 22:00 09/01/24 21:59 Diagnostic Test (Pha) (Accu-Chek Comfort Curve T) 1 strip IQ4HR 08/31/24 16:00 Insulin Human Regular (InsuLIN R) IQ4HR SC 08/31/24 16:00 Dextrose 50 ml UD PRN IV Blood Sugar LESS THAN 60 08/31/24 12:30 Micafungin Sodium 100 mg/Sodium Chloride 100 ml @ 100 mls/hr DAILY IV 09/01/24 10:00 08/31/24 14:37 DC Micafungin Sodium 100 mg/Sodium Chloride 100 ml @ 100 mls/hr DAILY@0900 IV 09/01/24 09:00 Metoclopramide HCl (Reglan Injection) 10 mg Q8HR IV 08/31/24 22:00 UNV Vital Signs Vital Signs Date Time Temp Pulse Resp B/P (MAP) Pulse Ox O2 Delivery O2 Flow Rate FiO2 08/31/24 14:49 80 24 104/46 (65) 96 30 08/31/24 10:00 Mechanical Ventilator+ 08/31/24 06:45 98.1 98.1 08/30/24 12:00 10 Physical Exam General: Mechanically ventilated, sedated HEENT: Head is normocephalic and atraumatic. Pupils are equal, round, and reactive to light Neck: Supple with no cervical lymphadenopathy. Heart: Regular rate without murmur, rub, or gallop. Lungs: Bilateral crackles, most prominent on bases Abdomen: No external sign of injury. Bowel sounds areabsent.. Abdomen is soft, nontender. Extremities: faint peripheral pulses. There is no clubbing, no cyanosis, and no edema. Skin: No rash. Labs/Diagnostic Data Labs Test 08/31/24 13:05 08/31/24 11:33 08/31/24 06:48 08/31/24 03:10 Range/Units Prothrombin Time 11.0 9.3-11.8 sec Prothrombin Time INR 1.04 0.9-1.15 Activated Partial Thromboplast Time 27.2 24.5-34.5 SEC POC Glucose 170 H 70-106 mg/dl Blood Gas Specimen Type Arterial Blood Gas Sample Site Arterial line Blood Gas Patient Temperature 37.0 Arterial Blood Date Drawn [id number] Arterial Blood pH 7.355 7.350-7.450 Arterial Blood Partial Pressure CO2 45.3 35.0-48.0 mmHg Arterial Blood Partial Pressure O2 73.2 L 83.0-108.0 mmHg Arterial Blood HCO3 24.7 21.0-28.0 mmol/L Arterial Blood Oxygen Saturation 93.8 L 94.0-98.0 % Arterial Blood Base Excess -0.8 -2.0-3.0 mmol/L Arterial Blood Oxyhemoglobin 93.0 L 94.0-98.0 % Arterial Blood Carboxyhemoglobin 0.8 0.5-1.5 % Arterial Blood Methemoglobin 0.1 0.0-1.5 % Jasvir Test N/a Blood Gas Total Hemoglobin 8.20 L 13.5-17.5 g/dL Blood Gas Set Respiration Rate 24.0 Blood Gas Modality Vent - ac FiO2 % 30.0 Blood Gas Tidal Volume 550.0 Blood Gas PEEP or CPAP 8.0 White Blood Count 14.1 H 4.4-10.8 10^3/uL Red Blood Count 2.36 L 4.5-5.90 10^6/uL Hemoglobin 7.1 L 13.5-17.5 g/dL Hematocrit 20.5 L 41.0-53.0 % Mean Corpuscular Volume 86.9 80.0-100.0 fL Mean Corpuscular Hemoglobin 29.9 28.0-32.0 pg Mean Corpuscular Hemoglobin Concent 34.4 32.0-36.0 g/dL Red Cell Distribution Width 15.4 H 11.8-14.3 % Platelet Count 243 140-450 10^3/uL Mean Platelet Volume 8.1 6.9-10.8 fL Neutrophils (%) (Auto) 37.0-80.0 % Lymphocytes (%) (Auto) 10.0-50.0 % Monocytes (%) (Auto) 0.0-12.0 % Basophils (%) (Auto) 0.0-2.0 % Neutrophils # (Auto) 1.6-8.6 10 ^3/uL Lymphocytes # (Auto) 0.4-5.4 10 ^3/uL Monocytes # (Auto) 0-1.3 10 ^3/uL Differential Total Cells Counted 100.0 100 Neutrophils % (Manual) 76 37.0-80.0 Band Neutrophils % (Manual) 2 Lymphocytes % (Manual) 13 10.0-50.0 Monocytes % (Manual) 5 0-12 Eosinophils % (Manual) 3 0-7 Basophils % (Manual) 0 0.0-2.0 Metamyelocytes % (manual) 1 Myelocytes % (Manual) 0 Promyelocytes % (Manual) 0 Blast Cells % (Manual) 0 Reactive Lymphocytes 0 Platelet Estimate Adequate Sodium Level 134 L 136-145 mmol/L Potassium Level 4.1 3.5-5.1 mmol/L Chloride Level 97 L 98-107 mmol/L Carbon Dioxide Level 26 20-31 mmol/L Anion Gap 11 5-15 Blood Urea Nitrogen 79 H 9-23 mg/dL Creatinine 4.83 H 0.700-1.30 mg/dL Glomerular Filtration Rate Calc 15 >90 mL/min BUN/Creatinine Ratio 16.4 10.0-20.0 Serum Glucose 144 H 74-106 mg/dL Calcium Level 8.8 8.7-10.4 mg/dL Phosphorus Level 5.4 H 2.4-5.1 mg/dL Magnesium Level 1.9 1.6-2.6 mg/dL Total Bilirubin 0.3 0.2-1.0 mg/dL Aspartate Amino Transferase (AST) 31 13-40 U/L Alanine Aminotransferase (ALT) 25 7-40 U/L Alkaline Phosphatase 480 H 46-116 U/L Total Protein 6.7 5.7-8.2 g/dL Albumin 3.0 L 3.2-4.8 g/dL Test 08/30/24 06:21 08/27/24 06:51 08/27/24 03:15 08/25/24 20:00 Range/Units Blood Gas Critical Value Read Back Yes Blood Gas Notified Whom Katie ledesma. Blood Gas Notified Time [id number] Blood Gas Notified By Gurpreet mckeon Blood Gas Spontaneous Rate 22 Blood Gas Spontaneous Tidal Volume 603 Blood Gas Inspiratory Pressure 27.0 Bl Gas Inspiratory/Expiratory Ratio 1:3.2 Specimen Drawn By Georgiana rt Blood Gas Comments Pc 18 i-time .8 Triglycerides Level 166 H < 150 mg/dL Large Platelets Few Red Blood Cell Morphology Normal Test 08/24/24 03:17 08/20/24 13:11 08/20/24 12:24 08/19/24 20:50 Range/Units Random Vancomycin Level 12.2 H 5-10 ug/mL Hepatitis A IgM Antibody Negative Hepatitis B Surface Antigen Negative Negative Hepatitis B Core IgM Antibody Negative Negative Hepatitis C Antibody Negative Negative Influenza Type A Antigen Negative Negative Influenza Type B Antigen Negative Negative SARS-CoV-2 Antigen (Rapid) Negative NEGATIVE Blood Gas Pressure Support 26 Test 08/19/24 16:55 08/19/24 16:07 08/19/24 13:07 08/19/24 11:25 Range/Units D-Dimer, Quantitative 1.19 H 0.0-0.49 mg/L FEU Creatine Kinase 115 46-171 U/L Amylase Level 47 30-118 U/L Lipase 41 12-53 U/L Blood Gas Liter Flow 15.00 Lactic Acid Level 4.6 *H 0.4-2.0 mmol/L Urine Color Colorless Yellow Urine Clarity Ex.turbid Clear Urine pH 6.5 5.0-9.0 Urine Specific Boring 1.017 1.001-1.035 Urine Protein 1+ H Negative Urine Ketones Negative Negative Urine Blood 1+ H Negative /uL Urine Nitrite Negative Negative Urine Bilirubin Negative Negative Urine Urobilinogen Normal Negative mg/dL Urine Leukocyte Esterase Trace Negative /uL Urine RBC 5 0 - 3 /hpf Urine Microscopic WBC 16 H 0-3 /HPF Urine Squamous Epithelial Cells Few <5 /hpf Urine Renal Epithelial Cells Few None Seen /hpf Urine Amorphous Crystals Few None Seen /hpf Urine Bacteria Few H None Seen /hpf Urine Mucus Few None Seen Urine Sperm Present None Seen /hpf Urine Creatinine 77.13 30.0-125.0 mg/dL Urine Sodium 15 L 40-220 mmol/L Urine Glucose 3+ H Normal mg/dL Urine Opiates Screen Neg NEGATIVE Urine Fentanyl Screen Neg NEGATIVE Urine Barbiturates Screen Neg NEGATIVE Urine Phencyclidine Screen Neg NEGATIVE Urine Amphetamines Screen Neg NEGATIVE Urine Benzodiazepines Screen Neg NEGATIVE Urine Cocaine Screen Neg NEGATIVE Urine Cannabinoids Screen Neg NEGATIVE Test 08/19/24 11:00 Range/Units Hemoglobin A1c 11.7 H <5.7 % A1C Beta-Hydroxybutyric Acid 0.498 H < 0.4 mmol/L Plasma/Serum Blood Alcohol < 3.0 <10 mg/dL Microbiology Date/Time Source Procedure Growth Status 08/23/24 22:30 Bronchial Washings Gram Stain - Final Complete 08/23/24 22:30 Respiratory Culture - Final Presumptive Mary albicans Complete 08/20/24 22:05 Nose MRSA Screen - Final Complete 08/19/24 11:25 Voided Urine Urine Culture - Final Complete 08/19/24 11:00 Blood Blood Culture - Final NO GROWTH AFTER 5 DAYS OF INCUBATION. Complete Assessment GI bleed possible gastritis esophagitis Gastric obstruction vs Ileus Acute metabolic/toxic encephalopathy Acute hypoxic respiratory failure due to aspiration Septic shock due to aspiration pneumonia Elevated liver enzymes in the setting of septic shock Acute kidney injury in the setting of hypotension and volume depletion Plan/Recommendation Plan PPIs Monitor CBC Repeat KUB today Showed nonobstructive bowel gas pattern NG tube with intermittent suction Continue TPN We will decide Gastrografin studies probably tomorrow Continue hemodialysis Continue ventilator management Rest of the management as per ICU team Thank you so much for the opportunity to consult on your patient. GI team will follow the patient Case an action plan discussed with Dr. Linda Brennan. Complex care planning needed total 49 minutes of detailed discussion. Plan discussed with: Other (RN) RUBY PINEDA RESIDENT Aug 31, 2024 15:25
[2024-08-31] MEDS: InsuLIN REG 1unit/0.01ml Soln (100units/ml) SC SCH (16:21)
[2024-08-31] MEDS: MICAFUNGIN SODIUM 100 MG in SODIUM CHL 0.9% 100 ML IV ONE (16:41)
[2024-08-31] MEDS: METOCLOPRAMIDE HCL 5MG/ml INJ 2ml VIAL IV ONE (16:49)
[2024-08-31] MEDS: ACCU-CHEK COMFORT CURVE STRIP VI SCH (16:52)
[2024-08-31] MEDS: LIDOCAINE 1% (LOCAL ANESTH.) PF 5ml SDV ID ONE (17:10)
--- NOTE | 2024-08-31 17:26 | DVHPNRES ---
Progress Note Date Seen: Aug 31, 2024 Resident Creating Document: MARGARITO CALDERASHERRY RESIDENT Has the PT tested + for MRSA If YES, has PT been informed?: No Medical Necessity Reason Pt with a Central, PICC or Fol: Yes The following are medically ne: Central Line, Chavez Catheter Reason for chavez catheter: Strict I&O Subjective Review of Systems Patient was a 44-year-old male with a past medical history of diabetes presented to the ER with a chief complaint of intractable vomitings and altered level of consciousness. According to the sister patient has been vomiting persistently for 7-10 days before coming to the hospital. She reports that he took a shot of Ozempic before the vomiting started. While in the ER patient was altered and was not able to protect his airways following which it was decided to intubate him and put him on mechanical ventilation. Before intubation when he was laid flat, had vomiting coffee-ground and aspirated. After intubation patient underwent bronchoscopy with removal of mucus plugs from left upper and left lower lung. Past medical history: Diabetes Past surgical history: Left foot surgery Social history: Smokes 1 pack of cigarettes per day, denied alcohol or any other drug use Home medications: ?? Review of systems Patient seen and examined at the bedside Sedated and on mechanical ventilation Urine output noted to be around 150 mL, hemodialysis with 3.5 L fluid removed yesterday and 3 L today Abdomen soft but no bowel movement since the patient was in the hospital and absent bowel sounds, on TPN Patient was having fevers up to 100 degree, mcwilliams cultures repeated Objective vital signs Vital Sign Date Time Temp Pulse Resp B/P (MAP) Pulse Ox O2 Delivery O2 Flow Rate FiO2 08/31/24 16:25 99.5 78 24 96/42 99.5 08/31/24 16:15 95 30 08/31/24 16:00 Mechanical Ventilator+ 08/30/24 12:00 10 Total Intake and Output 08/30/24 08/30/24 08/31/24 15:00 23:00 07:00 Intake Total 1177.237 ml 1031.175 ml 999.665 ml Output Total 3775 ml 350 ml Balance 1177.237 ml -2743.825 ml 649.665 ml medications Current Medications Medications Dose Ordered Sig/Nikki Route Start Time Stop Time Status Last Admin Dose Admin Diagnostic Test (Pha) 1 strip ACHS 08/19/24 17:00 Cancel Norepinephrine Bitartrate 250 ml @ 3.75 mls/hr Q24H IV 08/19/24 17:15 Cancel Midazolam HCl 50 ml @ 1 mls/hr Q24H IV 08/19/24 17:15 08/31/24 14:15 7 MLS/HR Ipratropium [place] 0.5 mg Q6HR NEB 08/19/24 18:00 08/31/24 12:52 0.5 MG Albuterol 2.5 mg Q6HR NEB 08/19/24 18:00 08/31/24 12:52 2.5 MG Pantoprazole Sodium 40 mg BID IV 08/20/24 22:00 08/31/24 14:18 40 MG Acetaminophen [address] 08/21/24 01:45 08/23/24 03:36 650 MG Sucralfate 1 gm QID@0600,1130,1700,2200 GT 08/21/24 11:30 08/30/24 21:55 1 GM Amino Acids 0 ml @ 0 mls/hr PER PHARMACY IV 08/24/24 09:00 Meropenem 50 ml @ 17 mls/hr DAILY IV 08/24/24 10:00 08/31/24 14:40 17 MLS/HR Epoetin Aquilino-epbx 10,000 unit TUTHSA@2100 SC 08/26/24 21:00 08/29/24 21:41 10,000 UNIT Albumin Human 100 ml @ 100 mls/hr PRN PRN IV 08/26/24 06:45 08/27/24 07:45 100 MLS/HR Insulin Glargine 10 units DAILY@1000 SC 08/26/24 10:00 08/31/24 11:37 10 UNITS Enoxaparin Sodium 30 mg DAILY SC 08/27/24 10:00 08/31/24 10:00 30 MG Acetylcysteine 100 mg Q6HR NEB 08/26/24 12:00 08/31/24 12:52 100 MG Propofol 100 ml @ 3.804 mls/ hr Q24H IV 08/27/24 04:30 08/31/24 14:15 26.628 MLS/HR Norepinephrine Bitartrate 32 mg/ Sodium Chloride 250 ml @ 0.469 mls/ hr Q24H IV 08/27/24 13:00 08/31/24 13:00 0.938 MLS/HR Enteral Nutritional Formula 1,000 ml 30ML/HR GT 08/28/24 09:15 Sodium Chloride 100 meq/Sodium Acetate 20 meq/ Multivitamins 10 ml/Chromium/ Copper/Manganese/ Zinc 1 ml/Insulin Human Regular 30 units/Amino Acids/ Dextrose 1,546.3 ml @ 64 mls/hr [id number] IV 08/30/24 22:00 08/31/24 21:59 08/30/24 22:01 64 MLS/HR Fentanyl Citrate 250 ml @ 2.5 mls/hr Q24H IV 08/30/24 20:00 08/31/24 11:00 30 MLS/HR Sodium Chloride 120 meq/Sodium Acetate 10 meq/ Magnesium Sulfate 4 meq/ Multivitamins 10 ml/Chromium/ Copper/Manganese/ Zinc 1 ml/Insulin Human Regular 24 units/Amino Acids/ Dextrose 1,597.24 ml @ 66 mls/hr [id number] IV 08/31/24 22:00 09/01/24 21:59 Diagnostic Test (Pha) 1 strip IQ4HR 08/31/24 16:00 08/31/24 16:52 1 STRIP Insulin Human Regular IQ4HR SC 08/31/24 16:00 08/31/24 16:21 3 UNITS Dextrose 50 ml UD PRN IV 08/31/24 12:30 Micafungin Sodium 100 mg/Sodium Chloride 100 ml @ 100 mls/hr DAILY@0900 IV 09/01/24 09:00 Metoclopramide HCl 10 mg Q8HR IV 08/31/24 22:00 Examination Constitutional: Patient sedated and on mechanical ventilation, RASS -4 Gen - mild conjuctival pallor, no icterus, no cyanosis, no clubbing, no LAD, trace edema . Skin - Patients skin is warm and dry. HEENT - normocephalic, atraumatic, moist mucous membranes. Neck - full ROM, no LAD, no jvd Pulmonary - B/L air entry present, diffuse rales, no wheezing, no stridor. cardiovascular - regular S1,S2 heard, no added sounds, no murmurs heard. GI - soft abdomen. no hepatospleenomegaly. bowel sounds absent Neurological - patient was sedated and on mechanical ventilation. Gag reflex present, pupils equal and reactive laboratory and microbiology Laboratory Tests 08/31/24 03:10 Test 08/31/24 03:10 Range/Units Serum Glucose 144 H 74-106 mg/dL Microbiology Date/Time Source Procedure Growth Status 08/23/24 22:30 Bronchial Washings Gram Stain - Final Complete 08/23/24 22:30 Respiratory Culture - Final Presumptive Mary albicans Complete 08/20/24 22:05 Nose MRSA Screen - Final Complete 08/19/24 11:25 Voided Urine Urine Culture - Final Complete 08/19/24 11:00 Blood Blood Culture - Final NO GROWTH AFTER 5 DAYS OF INCUBATION. Complete Problem List/Assessment/Plan Problem List/Assessment/Plan Neurology Acute metabolic encephalopathy likely due to sepsis/HHS - on mechanical ventilation Respiratory Acute hypoxic respiratory failure Probable aspiration pneumonia - on mechanical ventilation with FiO2 30%, peep 8 - chest x-ray shows bilateral patchy opacities - ABG compensated - IV antibiotics meropenem, linezolid, micafungin - sputum culture showed growth of presumptive Mary - repeat sputum cultures Cardiovascular Shock due to sepsis possibly from aspiration Acute on chronic heart failure with reduced ejection fraction - echo showed LVEF< 40% - on vasopressor support with norepinephrine Infectious disease Septic shock likely due to aspiration pneumonia - on IV antibiotics Nephrology Metabolic alkalosis likely from intractable vomiting, resolved KATE on CKD likely due to be VMN from dehydration - on hemodialysis GI ?Gastroparesis ?Upper GI bleed - no bowel movements since with the patient in the hospital - KUB shows nonobstructive bowel gas pattern - on metoclopramide - Protonix b.i.d., sucralfate q.i.d. - 3 units of PRBC given - GI on board - TPN Endocrinology Uncontrolled diabetes mellitus with a hyperglycemia Morbid obesity - on insulin sliding scale Right IJ review central venous catheter placed on 08/26 Right femoral dialysis catheter Chavez's catheter Code status: Full code times spent- 23 minutes Critical care time spent excluding procedures: 83 minutes Plan discussed with Dr. Flowers Plan discussed with: Other (RN (Neena Mathis )) My Orders My Orders Orders - QUINTIN CALDERA RESIDENT Procedure Category Date Status Time Glucose Blood PHA 08/31/24 In Process (Accu-Chek Comfort 16:00 Insulin R (Human) PHA 08/31/24 In Process (Insulin R) 16:00 Dextrose 50% Syringe PHA 08/31/24 In Process 12:30 Blood Culture MIRLANDE 08/31/24 In Process 12:24 Respiratory Culture MIRLANDE 08/31/24 Uncollected W/ Gs 12:24 Urine Bacterial MIRLANDE 08/31/24 Logged Culture 12:24 * Picc Line Consult CONS 08/31/24 Transmitted 13:53 Micafungin Sodium PHA 09/01/24 In Process (Mycamine) 09:00 Dietary Evaluation Review Recommendations by RD: Protein Supplementation, PPN/TPN Comments: Pt is at high risk of malnutrition due to prolonged vomiting leading to inadequate nutrient intake and hypermetabolic state secondary to acute inflammation. Recommendation: 1) Start PN/TPN per pharmacy 2) If GI is accessible, consider TF Pivot 1.5Cal @ 60ml/hr along with Pro-stat 1 pk TID. Start @ 10ml/hr, increase 10ml/hr Q4H until goal rate is reached. Advance TF rate slowly and gradually to prevent Refeeding syndrome. Water Flush 50ml Q4H if allowed. TF Provision --- TF at goal volume to provide 1440 ml total volume, 2160 kcal (+300 kcal via Pro-stat = 2460 kcal), 135 gm pro (+45 gm via ProStat = 180 gm), 1093 ml H20 (meets 100% est. kcal needs, 100% est. protein needs) 3) Monitor Potassium, Phosphate, Magnesium for Refeeding syndrome 4) Des 1 pk daily For DTI 5) Continue current plan of care Expected Outcomes/Goals: Blood glucose to improve Nutrient intake to meet at least 75% estimated needs FU 2-3 days Food and Nutrition Intake (Mod: <75% est energy req 7days Protein Calorie Malnutrition: Severe Date of Service: Aug 31, 2024 Billing Provider: ARMANDO FLOWERS MD Common Visit Codes: 80964-[id number] CARE 30-74 MIN, [id number] CARE-EACH +30MIN QUINTIN CALDERA RESIDENT Aug 31, 2024 17:26 ARMANDO FLOWERS MD Sep 01, 2024 14:46
[2024-08-31] MEDS: METOCLOPRAMIDE HCL 5MG/ml INJ 2ml VIAL IV SCH (21:30)
[2024-08-31] MEDS: HEPARIN SODIUM (PORCINE) 5000 UNITS/ML 1ML VIAL SC SCH (21:36)
[2024-08-31] MEDS: LINEZOLID 600MG/300ML 300 ML IV SCH (21:37)
[2024-08-31] MEDS: SODIUM CHLOR 0.9% PF (SALINE LOCK) 10ML VIAL/SYR IV SCH (21:37)
[2024-08-31] MEDS: TPN PER PHARMACY IV NR (21:42)
[2024-09-01] VITALS (107 sets, daily range): BP systolic 85–182; BP diastolic 42–97; PULSE 75–86; RESP 19–25; TEMP 98.2–98.9; O2SAT 93–100
[2024-09-01 03:56] LABS: Basophils # (auto) 0.1 10 ^3/uL (0-0.2); Basophils % (auto) 0.6 % (0.0-2.0); Eosinophils # (auto) 0.2 10 ^3/uL (0-0.8); Hematocrit 21.9 % (41.0-53.0); Hemoglobin 7.4 g/dL (13.5-17.5); Monocytes # (auto) 0.8 10 ^3/uL (0-1.3); Red Blood Cells 2.54 10^6/uL (4.5-5.90)
[2024-09-01 03:59] LABS: Eosinophils % (auto) 1.8 % (0.0-7.0); Lymphocytes # (auto) 1.8 10 ^3/uL (0.4-5.4); Lymphocytes % (auto) 16.1 % (10.0-50.0); Mean Corpuscular Hemoglobin 29.2 pg (28.0-32.0); Mean Corpuscular Hgb Conc. 33.9 g/dL (32.0-36.0); Mean Corpuscular Volume 86.2 fL (80.0-100.0); Monocytes % (auto) 6.9 % (0.0-12.0); Neutrophils # (auto) 8.5 10 ^3/uL (1.6-8.6); Neutrophils % (auto) 74.6 % (37.0-80.0); Platelet Count (auto) 262 10^3/uL (140-450); White Blood Cell 11.4 10^3/uL (4.4-10.8)
[2024-09-01 04:05] LABS: Alanine Aminotransferase 21 U/L (7-40); Anion Gap 11 (5-15); Aspartate Aminotransferase 29 U/L (13-40); BUN/Creatinine Ratio 17.1 (10.0-20.0); Carbon Dioxide 24 mmol/L (20-31); Chloride 98 mmol/L (98-107); Magnesium 1.9 mg/dL (1.6-2.6); Potassium 3.7 mmol/L (3.5-5.1); Total Protein 6.7 g/dL (5.7-8.2)
[2024-09-01 04:06] LABS: Phosphorus 4.5 mg/dL (2.4-5.1)
[2024-09-01 04:13] LABS: Band Neutrophils % (manual) 0; Basophils % (manual) 0 (0.0-2.0); Blast Cells 0; Metamyelocytes % 0; Promyelocytes % 0; Reactive Lymphocytes 0
[2024-09-01 04:16] LABS: Albumin 2.9 g/dL (3.2-4.8); Alkaline Phosphatase 513 U/L (46-116); Bilirubin, Total 0.3 mg/dL (0.2-1.0); Blood Urea Nitrogen 72 mg/dL (9-23); Calcium 8.7 mg/dL (8.7-10.4); Glucose 168 mg/dL (74-106); Sodium 133 mmol/L (136-145)
--- NOTE | 2024-09-01 05:04 | DVH ---
CHEST RADIOGRAPH Indication: RESPIRATORY FAILURE Technique: Single frontal view of the chest was obtained Comparison: XY CHEST PORTABLE on DOS: 08/31/24 FINDINGS: Lines and Tubes: The endotracheal tube terminates 6.1 cm above the jasbir. The enteric tube courses b elow the left hemidiaphragm and the tip extends outside the field of view. Right central venous lexy ter has been removed. Lungs: Stable bilateral airspace disease. Pleura: No effusion. No pneumothorax. Cardiomediastinal contours: Unremarkable Bones: No acute osseous abnormality. IMPRESSION: 1. Removal of the right central venous catheter. Other lines and tubes are unchanged. 2. Stable multifocal airspace disease representing edema or pneumonia.
[2024-09-01 05:50] LABS: Eosinophils % (manual) 2 (0-7); Giant Platelets Few; Lymphocytes % (manual) 16 (10.0-50.0); Monocytes % (manual) 5 (0-12); Myelocytes % 2; Platelet Estimate Adequate
[2024-09-01 06:59] LABS: Base Excess -2.1 mmol/L (-2.0-3.0)
[2024-09-01] MEDS: MICAFUNGIN SODIUM 100 MG in SODIUM CHL 0.9% 100 ML IV SCH (08:24)
[2024-09-01] MEDS ORDERED: MICAFUNGIN SODIUM 100 MG in SODIUM CHL 0.9% 100 ML IV SCH (10:00)
[2024-09-01] MEDS ORDERED: DEXTROSE (50%) 50ML SYRG IV PRN (15:15)
[2024-09-01] MEDS: FUROSEMIDE 100 MG/10ML VIAL IV ONE (15:18)
--- NOTE | 2024-09-01 15:59 | DVHPN2 ---
Progress Note Date Seen: Sep 01, 2024 Resident Creating Document: RUBY PINEDA RESIDENT Has the PT tested + for MRSA If YES, has PT been informed?: No Medical Necessity Reason Pt with a Central, PICC or Fol: Yes The following are medically ne: Central Line, Chavez Catheter Reason for chavez catheter: Strict I&O Subjective Review of Systems Patient seen and examined at the bedside. Unable to obtain ROS due to patient clinical status. Patient is currently intubated on mechanical ventilation. No bowel movements. Recommended small bowel series with a Gastrografin. Changes from previous H/P or p: No Changes Objective vital signs Vital Sign Date Time Temp Pulse Resp B/P (MAP) Pulse Ox O2 Delivery O2 Flow Rate FiO2 09/01/24 15:40 75 24 106/54 (71) 97 30 09/01/24 10:00 Mechanical Ventilator+ 09/01/24 07:15 98.9 98.9 08/30/24 12:00 10 Total Intake and Output 08/31/24 08/31/24 09/01/24 14:59 22:59 06:59 Intake Total 810.557 ml 1889.932 ml 1342.180 ml Output Total 420 ml 250 ml Balance 810.557 ml 1469.932 ml 1092.180 ml medications Current Medications Medications Dose Ordered Sig/Nikki Route Start Time Stop Time Status Last Admin Dose Admin Diagnostic Test (Pha) 1 strip ACHS 08/19/24 17:00 Cancel Norepinephrine Bitartrate 250 ml @ 3.75 mls/hr Q24H IV 08/19/24 17:15 Cancel Midazolam HCl 50 ml @ 1 mls/hr Q24H IV 08/19/24 17:15 09/01/24 09:54 7 MLS/HR Ipratropium [place] 0.5 mg Q6HR NEB 08/19/24 18:00 09/01/24 11:30 0.5 MG Albuterol 2.5 mg Q6HR NEB 08/19/24 18:00 09/01/24 11:30 2.5 MG Pantoprazole Sodium 40 mg BID IV 08/20/24 22:00 09/01/24 10:08 40 MG Acetaminophen 650 mg Q6HP PRN MD 08/21/24 01:45 08/23/24 03:36 650 MG Sucralfate 1 gm QID@0600,1130,1700,2200 GT 08/21/24 11:30 08/30/24 21:55 1 GM Amino Acids 0 ml @ 0 mls/hr PER PHARMACY IV 08/24/24 09:00 Meropenem 50 ml @ 17 mls/hr DAILY IV 08/24/24 10:00 09/01/24 10:09 17 MLS/HR Epoetin Aquilino-epbx 10,000 unit TUTHSA@2100 SC 08/26/24 21:00 08/29/24 21:41 10,000 UNIT Albumin Human 100 ml @ 100 mls/hr PRN PRN IV 08/26/24 06:45 08/27/24 07:45 100 MLS/HR Insulin Glargine 10 units DAILY@1000 SC 08/26/24 10:00 09/01/24 10:07 10 UNITS Acetylcysteine 100 mg Q6HR NEB 08/26/24 12:00 09/01/24 11:29 100 MG Propofol 100 ml @ 3.804 mls/ hr Q24H IV 08/27/24 04:30 09/01/24 13:26 26.628 MLS/HR Norepinephrine Bitartrate 32 mg/ Sodium Chloride 250 ml @ 0.469 mls/ hr Q24H IV 08/27/24 13:00 08/31/24 13:00 0.938 MLS/HR Enteral Nutritional Formula 1,000 ml 30ML/HR GT 08/28/24 09:15 Fentanyl Citrate 250 ml @ 2.5 mls/hr Q24H IV 08/30/24 20:00 09/01/24 10:30 30 MLS/HR Sodium Chloride 120 meq/Sodium Acetate 10 meq/ Magnesium Sulfate 4 meq/ Multivitamins 10 ml/Chromium/ Copper/Manganese/ Zinc 1 ml/Insulin Human Regular 24 units/Amino Acids/ Dextrose 1,597.24 ml @ 66 mls/hr [id number] IV 08/31/24 22:00 09/01/24 21:59 08/31/24 21:42 66 MLS/HR Micafungin Sodium 100 mg/Sodium Chloride 100 ml @ 100 mls/hr DAILY@0900 IV 09/01/24 09:00 09/01/24 08:24 100 MLS/HR Metoclopramide HCl 10 mg Q8HR IV 08/31/24 22:00 09/01/24 15:05 10 MG Linezolid 300 ml @ 150 mls/hr Q12HR IV 08/31/24 22:00 09/01/24 10:07 150 MLS/HR Heparin Sodium (Porcine) 5,000 units Q12HR SC 08/31/24 22:00 09/01/24 10:07 5,000 UNITS Sodium Chloride 10 ml QSHIFT@10,22 IV 08/31/24 22:00 09/01/24 10:14 10 ML Sodium Chloride 120 meq/Sodium Acetate 20 meq/ Magnesium Sulfate 6 meq/ Multivitamins 10 ml/Chromium/ Copper/Manganese/ Zinc 1 ml/Insulin Human Regular 24 units/Amino Acids/ Dextrose 1,602.74 ml @ 67 mls/hr [id number] IV 09/01/24 22:00 09/02/24 21:59 Diagnostic Test (Pha) 1 strip Q6HR 09/01/24 18:00 Insulin Human Regular Q6HR SC 09/01/24 18:00 Dextrose 50 ml UD PRN IV 09/01/24 15:15 Examination General: Mechanically ventilated, sedated HEENT: Head is normocephalic and atraumatic. Pupils are equal, round, and reactive to light Neck: Supple with no cervical lymphadenopathy. Heart: Regular rate without murmur, rub, or gallop. Lungs: Bilateral crackles, most prominent on bases Abdomen: No external sign of injury. Bowel sounds areabsent.. Abdomen is soft, nontender. Extremities: faint peripheral pulses. There is no clubbing, no cyanosis, and no edema. Skin: No rash. laboratory and microbiology Laboratory Tests 09/01/24 02:58 Test 09/01/24 02:58 Range/Units Serum Glucose 168 H 74-106 mg/dL Microbiology Date/Time Source Procedure Growth Status 08/31/24 18:46 Sacrum Gram Stain Pending Resulted 08/31/24 18:46 Sacrum Wound Culture - Preliminary Resulted 08/31/24 15:22 Blood Blood Culture - Preliminary NO GROWTH AFTER 24 HOURS OF INCUBATION. Resulted 08/31/24 15:08 Sputum Gram Stain Pending Resulted 08/31/24 15:08 Sputum Respiratory Culture - Preliminary Resulted 08/31/24 14:00 Urine - [place] Urine Culture - Preliminary Resulted Labs and/or images reviewed: Labs reviewed by me, Image(s) reviewed by me Problem List/Assessment/Plan Problem List/Assessment/Plan GI bleed possible gastritis esophagitis Gastric obstruction vs Ileus vs gastroparesis Acute metabolic/toxic encephalopathy Acute hypoxic respiratory failure due to aspiration Septic shock due to aspiration pneumonia Elevated liver enzymes in the setting of septic shock Acute kidney injury in the setting of hypotension and volume depletion Plan PPIs We will recommend small bowel series with a Gastrografin Monitor CBC Repeat KUB Showed nonobstructive bowel gas pattern NG tube with intermittent suction Continue TPN Continue hemodialysis Continue ventilator management Rest of the management as per ICU team Thank you so much for the opportunity to consult on your patient. GI team will follow the patient Case an action plan discussed with Dr. Linda Brennan. Complex care planning needed total 49 minutes of detailed discussion. Plan discussed with: Patient My Orders My Orders Orders - RUBY PINEDA Procedure Category Date Status Time Small Bowel Series-W XY 09/01/24 Logged Gastrogra 15:55 Dietary Evaluation Review Recommendations by RD: Protein Supplementation, PPN/TPN Comments: Pt is at high risk of malnutrition due to prolonged vomiting leading to inadequate nutrient intake and hypermetabolic state secondary to acute inflammation. Recommendation: 1) Start PN/TPN per pharmacy 2) If GI is accessible, consider TF Pivot 1.5Cal @ 60ml/hr along with Pro-stat 1 pk TID. Start @ 10ml/hr, increase 10ml/hr Q4H until goal rate is reached. Advance TF rate slowly and gradually to prevent Refeeding syndrome. Water Flush 50ml Q4H if allowed. TF Provision --- TF at goal volume to provide 1440 ml total volume, 2160 kcal (+300 kcal via Pro-stat = 2460 kcal), 135 gm pro (+45 gm via ProStat = 180 gm), 1093 ml H20 (meets 100% est. kcal needs, 100% est. protein needs) 3) Monitor Potassium, Phosphate, Magnesium for Refeeding syndrome 4) Des 1 pk daily For DTI 5) Continue current plan of care Expected Outcomes/Goals: Blood glucose to improve Nutrient intake to meet at least 75% estimated needs FU 2-3 days Food and Nutrition Intake (Mod: <75% est energy req 7days Protein Calorie Malnutrition: Severe RUBY PINEDA RESIDENT Sep 01, 2024 15:59
--- NOTE | 2024-09-01 16:55 | DVHPN2 ---
Progress Note Date Seen: Sep 01, 2024 Has the PT tested + for MRSA If YES, has PT been informed?: No Medical Necessity Reason Pt with a Central, PICC or Fol: Yes The following are medically ne: Central Line, Chavez Catheter Reason for chavez catheter: Strict I&O Subjective Patient reports: Other Review of Systems: Deferred Objective vital signs Vital Sign Date Time Temp Pulse Resp B/P (MAP) Pulse Ox O2 Delivery O2 Flow Rate FiO2 09/01/24 16:00 76 24 101/52 (68) 97 09/01/24 15:40 30 09/01/24 10:00 Mechanical Ventilator+ 09/01/24 07:15 98.9 98.9 08/30/24 12:00 10 Total Intake and Output 08/31/24 08/31/24 09/01/24 15:00 23:00 07:00 Intake Total 989.123 ml 2142.400 ml 1041.243 ml Output Total 420 ml 250 ml Balance 989.123 ml 1722.400 ml 791.243 ml medications Current Medications Medications Dose Ordered Sig/Nikki Route Start Time Stop Time Status Last Admin Dose Admin Diagnostic Test (Pha) 1 strip ACHS 08/19/24 17:00 Cancel Norepinephrine Bitartrate 250 ml @ 3.75 mls/hr Q24H IV 08/19/24 17:15 Cancel Midazolam HCl 50 ml @ 1 mls/hr Q24H IV 08/19/24 17:15 09/01/24 16:20 7 MLS/HR Ipratropium [place] 0.5 mg Q6HR NEB 08/19/24 18:00 09/01/24 11:30 0.5 MG Albuterol 2.5 mg Q6HR NEB 08/19/24 18:00 09/01/24 11:30 2.5 MG Pantoprazole Sodium 40 mg BID IV 08/20/24 22:00 09/01/24 10:08 40 MG Acetaminophen 650 mg Q6HP PRN ME 08/21/24 01:45 08/23/24 03:36 650 MG Sucralfate 1 gm QID@0600,1130,1700,2200 GT 08/21/24 11:30 08/30/24 21:55 1 GM Amino Acids 0 ml @ 0 mls/hr PER PHARMACY IV 08/24/24 09:00 Meropenem 50 ml @ 17 mls/hr DAILY IV 08/24/24 10:00 09/01/24 10:09 17 MLS/HR Epoetin Aquilino-epbx 10,000 unit TUTHSA@2100 SC 08/26/24 21:00 08/29/24 21:41 10,000 UNIT Albumin Human 100 ml @ 100 mls/hr PRN PRN IV 08/26/24 06:45 08/27/24 07:45 100 MLS/HR Insulin Glargine 10 units DAILY@1000 SC 08/26/24 10:00 09/01/24 10:07 10 UNITS Acetylcysteine 100 mg Q6HR NEB 08/26/24 12:00 09/01/24 11:29 100 MG Propofol 100 ml @ 3.804 mls/ hr Q24H IV 08/27/24 04:30 09/01/24 16:14 26.628 MLS/HR Norepinephrine Bitartrate 32 mg/ Sodium Chloride 250 ml @ 0.469 mls/ hr Q24H IV 08/27/24 13:00 08/31/24 13:00 0.938 MLS/HR Enteral Nutritional Formula 1,000 ml 30ML/HR GT 08/28/24 09:15 Fentanyl Citrate 250 ml @ 2.5 mls/hr Q24H IV 08/30/24 20:00 09/01/24 10:30 30 MLS/HR Sodium Chloride 120 meq/Sodium Acetate 10 meq/ Magnesium Sulfate 4 meq/ Multivitamins 10 ml/Chromium/ Copper/Manganese/ Zinc 1 ml/Insulin Human Regular 24 units/Amino Acids/ Dextrose 1,597.24 ml @ 66 mls/hr [id number] IV 08/31/24 22:00 09/01/24 21:59 08/31/24 21:42 66 MLS/HR Micafungin Sodium 100 mg/Sodium Chloride 100 ml @ 100 mls/hr DAILY@0900 IV 09/01/24 09:00 09/01/24 08:24 100 MLS/HR Metoclopramide HCl 10 mg Q8HR IV 08/31/24 22:00 09/01/24 15:05 10 MG Linezolid 300 ml @ 150 mls/hr Q12HR IV 08/31/24 22:00 09/01/24 10:07 150 MLS/HR Heparin Sodium (Porcine) 5,000 units Q12HR SC 08/31/24 22:00 09/01/24 10:07 5,000 UNITS Sodium Chloride 10 ml QSHIFT@10,22 IV 08/31/24 22:00 09/01/24 10:14 10 ML Sodium Chloride 120 meq/Sodium Acetate 20 meq/ Magnesium Sulfate 6 meq/ Multivitamins 10 ml/Chromium/ Copper/Manganese/ Zinc 1 ml/Insulin Human Regular 24 units/Amino Acids/ Dextrose 1,602.74 ml @ 67 mls/hr [id number] IV 09/01/24 22:00 09/02/24 21:59 Diagnostic Test (Pha) 1 strip Q6HR 09/01/24 18:00 Insulin Human Regular Q6HR SC 09/01/24 18:00 Dextrose 50 ml UD PRN IV 09/01/24 15:15 Examination: LUNGS:Abnormal, MSK:Abnormal, NEURO:Abnormal laboratory and microbiology Laboratory Tests 09/01/24 02:58 Test 09/01/24 02:58 Range/Units Serum Glucose 168 H 74-106 mg/dL Microbiology Date/Time Source Procedure Growth Status 08/31/24 18:46 Sacrum Gram Stain Pending Resulted 08/31/24 18:46 Sacrum Wound Culture - Preliminary Resulted 08/31/24 15:22 Blood Blood Culture - Preliminary NO GROWTH AFTER 24 HOURS OF INCUBATION. Resulted 08/31/24 15:08 Sputum Gram Stain Pending Resulted 08/31/24 15:08 Sputum Respiratory Culture - Preliminary Resulted 08/31/24 14:00 Urine - [place] Urine Culture - Preliminary Resulted Problem List/Assessment/Plan Problem List/Assessment/Plan Acute kidney injury in the setting of hypotension and volume depletion -> ATN believed to be Ozempic induced Uncontrolled diabetes-> HONK acute respiratory failure due to aspiration pneumonia gastric obstruction vs Illeus w/ persistent vomiting carotid artery injury due to temp HD cath s/p vascular surgery repair femoral tunnel HD catheter placed by vascular hyperkalemia HD tomorrow on levophed 1 mcg epogen Plan discussed with: Other Dietary Evaluation Review Recommendations by RD: Protein Supplementation, PPN/TPN Comments: Pt is at high risk of malnutrition due to prolonged vomiting leading to inadequate nutrient intake and hypermetabolic state secondary to acute inflammation. Recommendation: 1) Start PN/TPN per pharmacy 2) If GI is accessible, consider TF Pivot 1.5Cal @ 60ml/hr along with Pro-stat 1 pk TID. Start @ 10ml/hr, increase 10ml/hr Q4H until goal rate is reached. Advance TF rate slowly and gradually to prevent Refeeding syndrome. Water Flush 50ml Q4H if allowed. TF Provision --- TF at goal volume to provide 1440 ml total volume, 2160 kcal (+300 kcal via Pro-stat = 2460 kcal), 135 gm pro (+45 gm via ProStat = 180 gm), 1093 ml H20 (meets 100% est. kcal needs, 100% est. protein needs) 3) Monitor Potassium, Phosphate, Magnesium for Refeeding syndrome 4) Des 1 pk daily For DTI 5) Continue current plan of care Expected Outcomes/Goals: Blood glucose to improve Nutrient intake to meet at least 75% estimated needs FU 2-3 days Food and Nutrition Intake (Mod: <75% est energy req 7days Protein Calorie Malnutrition: Severe KASSANDRA VARGAS MD Sep 01, 2024 16:55
[2024-09-01] MEDS: ACCU-CHEK COMFORT CURVE STRIP VI SCH (18:00)
[2024-09-01] MEDS: InsuLIN REG 1unit/0.01ml Soln (100units/ml) SC SCH (18:17)
--- NOTE | 2024-09-01 18:19 | DVHPNRES ---
Progress Note Date Seen: Sep 01, 2024 Resident Creating Document: MARGARITO CALDERACLAYTONAMANDA RESIDENT Has the PT tested + for MRSA If YES, has PT been informed?: No Medical Necessity Reason Pt with a Central, PICC or Fol: Yes The following are medically ne: Central Line, Chavez Catheter Reason for chavez catheter: Strict I&O Subjective Review of Systems Patient was a 44-year-old male with a past medical history of diabetes presented to the ER with a chief complaint of intractable vomitings and altered level of consciousness. According to the sister patient has been vomiting persistently for 7-10 days before coming to the hospital. She reports that he took a shot of Ozempic before the vomiting started. While in the ER patient was altered and was not able to protect his airways following which it was decided to intubate him and put him on mechanical ventilation. Before intubation when he was laid flat, had vomiting coffee-ground and aspirated. After intubation patient underwent bronchoscopy with removal of mucus plugs from left upper and left lower lung. Past medical history: Diabetes Past surgical history: Left foot surgery Social history: Smokes 1 pack of cigarettes per day, denied alcohol or any other drug use Home medications: ?? Review of systems Patient seen and examined at the bedside Sedated and on mechanical ventilation Urine output noted to be around 250 mL after one dose of lasix 80mg Abdomen soft but no bowel movement since the patient was in the hospital and absent bowel sounds, on TPN Objective vital signs Vital Sign Date Time Temp Pulse Resp B/P (MAP) Pulse Ox O2 Delivery O2 Flow Rate FiO2 09/01/24 16:00 76 24 101/52 (68) 97 09/01/24 15:40 30 09/01/24 12:00 Mechanical Ventilator+ 09/01/24 07:15 98.9 98.9 08/30/24 12:00 10 Total Intake and Output 08/31/24 08/31/24 09/01/24 15:00 23:00 07:00 Intake Total 989.123 ml 2142.400 ml 1041.243 ml Output Total 420 ml 250 ml Balance 989.123 ml 1722.400 ml 791.243 ml medications Current Medications Medications Dose Ordered Sig/Nikki Route Start Time Stop Time Status Last Admin Dose Admin Diagnostic Test (Pha) 1 strip ACHS 08/19/24 17:00 Cancel Norepinephrine Bitartrate 250 ml @ 3.75 mls/hr Q24H IV 08/19/24 17:15 Cancel Midazolam HCl 50 ml @ 1 mls/hr Q24H IV 08/19/24 17:15 09/01/24 16:20 7 MLS/HR Ipratropium [place] 0.5 mg Q6HR NEB 08/19/24 18:00 09/01/24 11:30 0.5 MG Albuterol 2.5 mg Q6HR NEB 08/19/24 18:00 09/01/24 11:30 2.5 MG Pantoprazole Sodium 40 mg BID IV 08/20/24 22:00 09/01/24 10:08 40 MG Acetaminophen 650 mg Q6HP PRN NC 08/21/24 01:45 08/23/24 03:36 650 MG Sucralfate 1 gm QID@0600,1130,1700,2200 GT 08/21/24 11:30 08/30/24 21:55 1 GM Amino Acids 0 ml @ 0 mls/hr PER PHARMACY IV 08/24/24 09:00 Meropenem 50 ml @ 17 mls/hr DAILY IV 08/24/24 10:00 09/01/24 10:09 17 MLS/HR Epoetin Aquilino-epbx 10,000 unit TUTHSA@2100 MD 08/26/24 21:00 08/29/24 21:41 10,000 UNIT Albumin Human 100 ml @ 100 mls/hr PRN PRN IV 08/26/24 06:45 08/27/24 07:45 100 MLS/HR Insulin Glargine 10 units DAILY@1000 SC 08/26/24 10:00 09/01/24 10:07 10 UNITS Acetylcysteine 100 mg Q6HR NEB 08/26/24 12:00 09/01/24 11:29 100 MG Propofol 100 ml @ 3.804 mls/ hr Q24H IV 08/27/24 04:30 09/01/24 16:14 26.628 MLS/HR Norepinephrine Bitartrate 32 mg/ Sodium Chloride 250 ml @ 0.469 mls/ hr Q24H IV 08/27/24 13:00 08/31/24 13:00 0.938 MLS/HR Enteral Nutritional Formula 1,000 ml 30ML/HR GT 08/28/24 09:15 Fentanyl Citrate 250 ml @ 2.5 mls/hr Q24H IV 08/30/24 20:00 09/01/24 10:30 30 MLS/HR Sodium Chloride 120 meq/Sodium Acetate 10 meq/ Magnesium Sulfate 4 meq/ Multivitamins 10 ml/Chromium/ Copper/Manganese/ Zinc 1 ml/Insulin Human Regular 24 units/Amino Acids/ Dextrose 1,597.24 ml @ 66 mls/hr [id number] IV 08/31/24 22:00 09/01/24 21:59 08/31/24 21:42 66 MLS/HR Micafungin Sodium 100 mg/Sodium Chloride 100 ml @ 100 mls/hr DAILY@0900 IV 09/01/24 09:00 09/01/24 08:24 100 MLS/HR Metoclopramide HCl 10 mg Q8HR IV 08/31/24 22:00 09/01/24 15:05 10 MG Linezolid 300 ml @ 150 mls/hr Q12HR IV 08/31/24 22:00 09/01/24 10:07 150 MLS/HR Heparin Sodium (Porcine) 5,000 units Q12HR SC 08/31/24 22:00 09/01/24 10:07 5,000 UNITS Sodium Chloride 10 ml QSHIFT@10,22 IV 08/31/24 22:00 09/01/24 10:14 10 ML Sodium Chloride 120 meq/Sodium Acetate 20 meq/ Magnesium Sulfate 6 meq/ Multivitamins 10 ml/Chromium/ Copper/Manganese/ Zinc 1 ml/Insulin Human Regular 24 units/Amino Acids/ Dextrose 1,602.74 ml @ 67 mls/hr [id number] IV 09/01/24 22:00 09/02/24 21:59 Diagnostic Test (Pha) 1 strip Q6HR 09/01/24 18:00 Insulin Human Regular Q6HR SC 09/01/24 18:00 Dextrose 50 ml UD PRN IV 09/01/24 15:15 Examination Constitutional: Patient sedated and on mechanical ventilation, RASS -4 Gen - mild conjuctival pallor, no icterus, no cyanosis, no clubbing, no LAD, trace edema . Skin - Patients skin is warm and dry. HEENT - normocephalic, atraumatic, moist mucous membranes. Neck - full ROM, no LAD, no jvd Pulmonary - B/L air entry present, diffuse rales, no wheezing, no stridor. cardiovascular - regular S1,S2 heard, no added sounds, no murmurs heard. GI - soft abdomen. no hepatospleenomegaly. bowel sounds absent Neurological - patient was sedated and on mechanical ventilation. Gag reflex present, pupils equal and reactive laboratory and microbiology Laboratory Tests 09/01/24 02:58 Test 09/01/24 02:58 Range/Units Serum Glucose 168 H 74-106 mg/dL Microbiology Date/Time Source Procedure Growth Status 08/31/24 18:46 Sacrum Gram Stain Pending Resulted 08/31/24 18:46 Sacrum Wound Culture - Preliminary Resulted 08/31/24 15:22 Blood Blood Culture - Preliminary NO GROWTH AFTER 24 HOURS OF INCUBATION. Resulted 08/31/24 15:08 Sputum Gram Stain Pending Resulted 08/31/24 15:08 Sputum Respiratory Culture - Preliminary Resulted 08/31/24 14:00 Urine - [place] Urine Culture - Preliminary Resulted Problem List/Assessment/Plan Problem List/Assessment/Plan Neurology Acute metabolic encephalopathy likely due to sepsis/HHS - on mechanical ventilation Respiratory Acute hypoxic respiratory failure Probable aspiration pneumonia ARDS - on mechanical ventilation with FiO2 30%, peep 8 - chest x-ray shows bilateral patchy opacities - ABG compensated - IV antibiotics meropenem, linezolid, micafungin - sputum culture showed growth of presumptive Mary - repeat sputum cultures Cardiovascular Shock due to sepsis possibly from aspiration Acute on chronic heart failure with reduced ejection fraction - echo showed LVEF< 40% - on vasopressor support with norepinephrine Infectious disease Septic shock likely due to aspiration pneumonia Sacral ulcer - on IV antibiotics - culture from ulcer pending Nephrology Metabolic alkalosis likely from intractable vomiting, resolved KATE on CKD likely due to be VMN from dehydration - on hemodialysis GI ?Gastroparesis ?Upper GI bleed - no bowel movements since with the patient in the hospital - KUB shows nonobstructive bowel gas pattern - on metoclopramide - Protonix b.i.d., sucralfate q.i.d. - 3 units of PRBC given - GI on board - TPN - small bowel series to be done tomorrow Endocrinology Uncontrolled diabetes mellitus with a hyperglycemia Morbid obesity - on insulin sliding scale Left upper arm PICC placed on 08/31 Right femoral dialysis catheter placed on 08/24 Chavez's catheter Goals of care discussed with the patient's sister Sheree for over 29 mins. Full code Critical care time spent excluding procedures: 81 minutes Plan discussed with Dr. Flowers Plan discussed with: Daughter (Sheree), Other (RN ( Neena Adair )) My Orders My Orders Orders - QUINTIN CALDERA RESIDENT Procedure Category Date Status Time Respiratory Culture MIRLANDE 08/31/24 In Process W/ Gs 12:24 Change Dressing Prn ROHINI 08/31/24 In Process 18:22 Sodium Chloride Lock PHA 08/31/24 In Process (Saline Lock Ns) 22:00 Do Not Use Picc For [facility] 08/31/24 In Process Blood Cult 18:22 May Draw Blood From [facility] 08/31/24 In Process Picc 18:22 Ok To Use Picc ROHINI 08/31/24 In Process 18:22 Change Picc Dressing [facility] 08/31/24 In Process Q7 Days 18:22 [facility] US 08/31/24 Taken Access 18:24 D/C Triple Lumen ORDERS 08/31/24 Transmitted 18:58 Wound Culture W/ Gs MIRLANDE 08/31/24 In Process 19:01 Chest Portable XY 09/01/24 Resulted 04:00 Us Guided Vascular US 08/31/24 Logged Access 19:35 Abg W/ Co-Ox RT 09/01/24 Logged 04:00 Discontinue A-Line ORDERS 09/01/24 Transmitted 14:55 Glucose Blood PHA 09/01/24 In Process (Accu-Chek Comfort 18:00 Insulin R (Human) PHA 09/01/24 In Process (Insulin R) 18:00 Dextrose 50% Syringe PHA 09/01/24 In Process 15:15 Complete Blood Count LAB 09/02/24 Verified 04:00 Basic Metabolic Panel LAB 09/02/24 Verified 04:00 Chest Xray 1 View XY 09/02/24 Logged 04:00 Abg W/ Co-Ox RT 09/02/24 Logged 04:00 Dietary Evaluation Review Recommendations by RD: Protein Supplementation, PPN/TPN Comments: Pt is at high risk of malnutrition due to prolonged vomiting leading to inadequate nutrient intake and hypermetabolic state secondary to acute inflammation. Recommendation: 1) Start PN/TPN per pharmacy 2) If GI is accessible, consider TF Pivot 1.5Cal @ 60ml/hr along with Pro-stat 1 pk TID. Start @ 10ml/hr, increase 10ml/hr Q4H until goal rate is reached. Advance TF rate slowly and gradually to prevent Refeeding syndrome. Water Flush 50ml Q4H if allowed. TF Provision --- TF at goal volume to provide 1440 ml total volume, 2160 kcal (+300 kcal via Pro-stat = 2460 kcal), 135 gm pro (+45 gm via ProStat = 180 gm), 1093 ml H20 (meets 100% est. kcal needs, 100% est. protein needs) 3) Monitor Potassium, Phosphate, Magnesium for Refeeding syndrome 4) Des 1 pk daily For DTI 5) Continue current plan of care Expected Outcomes/Goals: Blood glucose to improve Nutrient intake to meet at least 75% estimated needs FU 2-3 days Food and Nutrition Intake (Mod: <75% est energy req 7days Protein Calorie Malnutrition: Severe Date of Service: Sep 01, 2024 Billing Provider: ARMANDO FLOWERS MD Common Visit Codes: 32401-RCAQIESD CARE 30-74 MIN, 75552-[id number] CARE-EACH +30MIN QUINTIN CALDERA RESIDENT Sep 01, 2024 18:19 ARMANDO FLOWERS MD Sep 02, 2024 15:15
[2024-09-01] MEDS: TPN PER PHARMACY IV NR (20:51)
[2024-09-02] VITALS (103 sets, daily range): BP systolic 99–151; BP diastolic 48–74; PULSE 72–98; RESP 20–27; TEMP 98–98.7; O2SAT 92–98
--- NOTE | 2024-09-02 03:33 | DVH ---
CHEST RADIOGRAPH Indication: on vent Technique: Single frontal view of the chest was obtained Comparison: XY CHEST PORTABLE on DOS: 09/01/24, XY CHEST PORTABLE on DOS: 08/31/24, XY CHEST PORTABLE o n DOS: 08/30/24 IMPRESSION: Heart appears normal in stable in size. Endotracheal tube and enteric tube appear unchanged in satisf actory position. Diffuse Bilateral alveolar airspace opacities appear moderate to severe and similar to prior examination. No sizable effusion or pneumothorax.
[2024-09-02 03:56] LABS: Hematocrit 22.7 % (41.0-53.0); Hemoglobin 7.6 g/dL (13.5-17.5); Mean Corpuscular Hemoglobin 29.3 pg (28.0-32.0); Mean Corpuscular Hgb Conc. 33.6 g/dL (32.0-36.0); Mean Corpuscular Volume 87.2 fL (80.0-100.0); Platelet Count (auto) 327 10^3/uL (140-450); Red Cell Distribution Width 14.7 % (11.8-14.3); White Blood Cell 13.1 10^3/uL (4.4-10.8)
[2024-09-02 04:00] LABS: Basophils % (manual) 0 (0.0-2.0); Blast Cells 0; Eosinophils % (manual) 0 (0-7); Promyelocytes % 0; Reactive Lymphocytes 0
[2024-09-02 04:07] LABS: Alanine Aminotransferase 21 U/L (7-40); Anion Gap 12 (5-15); Calcium 9.2 mg/dL (8.7-10.4); Carbon Dioxide 22 mmol/L (20-31); Chloride 98 mmol/L (98-107); Magnesium 2.1 mg/dL (1.6-2.6); Potassium 4.6 mmol/L (3.5-5.1)
[2024-09-02 04:08] LABS: Aspartate Aminotransferase 26 U/L (13-40); BUN/Creatinine Ratio 18.8 (10.0-20.0); Total Protein 7.1 g/dL (5.7-8.2)
[2024-09-02 04:17] LABS: Alkaline Phosphatase 568 U/L (46-116); Bilirubin, Total 0.2 mg/dL (0.2-1.0); Glucose 198 mg/dL (74-106); Phosphorus 7.3 mg/dL (2.4-5.1); Sodium 132 mmol/L (136-145)
[2024-09-02 04:18] LABS: Blood Urea Nitrogen 100 mg/dL (9-23)
[2024-09-02 04:47] LABS: Band Neutrophils % (manual) 2; Large Platelets FEW; Lymphocytes % (manual) 14 (10.0-50.0); Metamyelocytes % 1; Monocytes % (manual) 3 (0-12); Myelocytes % 2; Platelet Estimate Adequa
[2024-09-02 05:04] LABS: Triglycerides 199 mg/dL (< 150)
[2024-09-02 07:50] LABS: Base Excess -6.7 mmol/L (-2.0-3.0)
--- NOTE | 2024-09-02 11:24 | DVHPN2 ---
Progress Note Date Seen: Sep 02, 2024 Resident Creating Document: RUBY PINEDA RESIDENT Has the PT tested + for MRSA If YES, has PT been informed?: No Medical Necessity Reason Pt with a Central, PICC or Fol: Yes The following are medically ne: Central Line, Chavez Catheter Reason for chavez catheter: Strict I&O Subjective Review of Systems Patient seen and examined at the bedside. Unable to obtain ROS due to patient clinical status. Patient is currently intubated on mechanical ventilation. No bowel movements. Recommended small bowel series with a Gastrografin. Changes from previous H/P or p: No Changes Objective vital signs Vital Sign Date Time Temp Pulse Resp B/P (MAP) Pulse Ox O2 Delivery O2 Flow Rate FiO2 09/02/24 09:04 107/59 09/02/24 08:19 80 24 95 30 09/02/24 06:00 Mechanical Ventilator+ 09/02/24 04:00 98.4 98.4 Total Intake and Output 09/01/24 09/01/24 09/02/24 15:00 23:00 07:00 Intake Total 1490.776 ml 1277.776 ml 913.679 ml Output Total 490 ml 660 ml Balance 1490.776 ml 787.776 ml 253.679 ml medications Current Medications Medications Dose Ordered Sig/Nikki Route Start Time Stop Time Status Last Admin Dose Admin Diagnostic Test (Pha) 1 strip ACHS 08/19/24 17:00 Cancel Norepinephrine Bitartrate 250 ml @ 3.75 mls/hr Q24H IV 08/19/24 17:15 Cancel Midazolam HCl 50 ml @ 1 mls/hr Q24H IV 08/19/24 17:15 09/02/24 05:53 6 MLS/HR Ipratropium [place] 0.5 mg Q6HR NEB 08/19/24 18:00 09/02/24 06:46 0.5 MG Albuterol 2.5 mg Q6HR NEB 08/19/24 18:00 09/02/24 06:46 2.5 MG Pantoprazole Sodium 40 mg BID IV 08/20/24 22:00 09/01/24 20:44 40 MG Acetaminophen 650 mg Q6HP PRN [place] 08/21/24 01:45 08/23/24 03:36 650 MG Sucralfate 1 gm QID@0600,1130,1700,2200 GT 08/21/24 11:30 08/30/24 21:55 1 GM Amino Acids 0 ml @ 0 mls/hr PER PHARMACY IV 08/24/24 09:00 Meropenem 50 ml @ 17 mls/hr DAILY IV 08/24/24 10:00 09/01/24 10:09 17 MLS/HR Epoetin Aquilino-epbx 10,000 unit TUTHSA@2100 SC 08/26/24 21:00 09/01/24 21:08 10,000 UNIT Albumin Human 100 ml @ 100 mls/hr PRN PRN IV 08/26/24 06:45 08/27/24 07:45 100 MLS/HR Insulin Glargine 10 units DAILY@1000 SC 08/26/24 10:00 09/01/24 10:07 10 UNITS Acetylcysteine 100 mg Q6HR NEB 08/26/24 12:00 09/02/24 06:46 100 MG Propofol 100 ml @ 3.804 mls/ hr Q24H IV 08/27/24 04:30 09/02/24 09:04 26.628 MLS/HR Norepinephrine Bitartrate 32 mg/ Sodium Chloride 250 ml @ 0.469 mls/ hr Q24H IV 08/27/24 13:00 08/31/24 13:00 0.938 MLS/HR Enteral Nutritional Formula 1,000 ml 30ML/HR GT 08/28/24 09:15 Fentanyl Citrate 250 ml @ 2.5 mls/hr Q24H IV 08/30/24 20:00 09/02/24 02:40 30 MLS/HR Micafungin Sodium 100 mg/Sodium Chloride 100 ml @ 100 mls/hr DAILY@0900 IV 09/01/24 09:00 09/01/24 08:24 100 MLS/HR Metoclopramide HCl 10 mg Q8HR IV 08/31/24 22:00 09/02/24 05:54 10 MG Linezolid 300 ml @ 150 mls/hr Q12HR IV 08/31/24 22:00 09/01/24 20:44 150 MLS/HR Heparin Sodium (Porcine) 5,000 units Q12HR SC 08/31/24 22:00 09/01/24 20:46 5,000 UNITS Sodium Chloride 10 ml QSHIFT@10,22 IV 08/31/24 22:00 09/01/24 20:45 10 ML Sodium Chloride 120 meq/Sodium Acetate 20 meq/ Magnesium Sulfate 6 meq/ Multivitamins 10 ml/Chromium/ Copper/Manganese/ Zinc 1 ml/Insulin Human Regular 24 units/Amino Acids/ Dextrose 1,602.74 ml @ 67 mls/hr [id number] IV 09/01/24 22:00 09/02/24 21:59 09/01/24 20:51 67 MLS/HR Diagnostic Test (Pha) 1 strip Q6HR 09/01/24 18:00 09/02/24 05:57 1 STRIP Insulin Human Regular Q6HR SC 09/01/24 18:00 09/02/24 05:56 2 UNITS Dextrose 50 ml UD PRN IV 09/01/24 15:15 Artificial Tears 2 drop Q4HR PRN EACHEYE 09/02/24 10:45 Sodium Chloride 80 meq/Sodium Acetate 60 meq/ Magnesium Sulfate 4 meq/ Multivitamins 10 ml/Chromium/ Copper/Manganese/ Zinc 1 ml/Insulin Human Regular 30 units/Amino Acids/ Dextrose 1,712.3 ml @ 71 mls/hr Q24H8M IV 09/02/24 22:00 09/03/24 21:59 Examination General: Mechanically ventilated, sedated HEENT: Head is normocephalic and atraumatic. Pupils are equal, round, and reactive to light Neck: Supple with no cervical lymphadenopathy. Heart: Regular rate without murmur, rub, or gallop. Lungs: Bilateral crackles, most prominent on bases Abdomen: No external sign of injury. Bowel sounds areabsent.. Abdomen is soft, nontender. Extremities: faint peripheral pulses. There is no clubbing, no cyanosis, and no edema. Skin: No rash. laboratory and microbiology Laboratory Tests 09/02/24 03:14 Test 09/02/24 03:14 Range/Units Serum Glucose 198 H 74-106 mg/dL Microbiology Date/Time Source Procedure Growth Status 08/31/24 18:46 Sacrum Gram Stain Pending Resulted 08/31/24 18:46 Sacrum Wound Culture - Preliminary Resulted 08/31/24 15:22 Blood Blood Culture - Preliminary NO GROWTH AFTER 24 HOURS OF INCUBATION. Resulted 08/31/24 15:08 Sputum Gram Stain - Final Resulted 08/31/24 15:08 Sputum Respiratory Culture - Preliminary Resulted 08/31/24 14:00 Urine - [place] Urine Culture - Final Complete Labs and/or images reviewed: Labs reviewed by me, Image(s) reviewed by me Problem List/Assessment/Plan Problem List/Assessment/Plan GI bleed possible gastritis esophagitis Gastric obstruction vs Ileus vs gastroparesis Acute metabolic/toxic encephalopathy Acute hypoxic respiratory failure due to aspiration Septic shock due to aspiration pneumonia Elevated liver enzymes in the setting of septic shock Acute kidney injury in the setting of hypotension and volume depletion Plan PPIs We will recommend small bowel series with a Gastrografin Monitor CBC Repeat KUB Showed nonobstructive bowel gas pattern NG tube with intermittent suction Continue TPN Continue hemodialysis Continue ventilator management Rest of the management as per ICU team Thank you so much for the opportunity to consult on your patient. GI team will follow the patient Case an action plan discussed with Dr. Linda Brennan. Complex care planning needed total 49 minutes of detailed discussion. Plan discussed with: Patient Dietary Evaluation Review Recommendations by RD: Protein Supplementation, PPN/TPN Comments: Pt is at high risk of malnutrition due to prolonged vomiting leading to inadequate nutrient intake and hypermetabolic state secondary to acute inflammation. Recommendation: 1) Start PN/TPN per pharmacy 2) If GI is accessible, consider TF Pivot 1.5Cal @ 60ml/hr along with Pro-stat 1 pk TID. Start @ 10ml/hr, increase 10ml/hr Q4H until goal rate is reached. Advance TF rate slowly and gradually to prevent Refeeding syndrome. Water Flush 50ml Q4H if allowed. TF Provision --- TF at goal volume to provide 1440 ml total volume, 2160 kcal (+300 kcal via Pro-stat = 2460 kcal), 135 gm pro (+45 gm via ProStat = 180 gm), 1093 ml H20 (meets 100% est. kcal needs, 100% est. protein needs) 3) Monitor Potassium, Phosphate, Magnesium for Refeeding syndrome 4) Des 1 pk daily For DTI 5) Continue current plan of care Expected Outcomes/Goals: Blood glucose to improve Nutrient intake to meet at least 75% estimated needs FU 2-3 days Food and Nutrition Intake (Mod: <75% est energy req 7days Protein Calorie Malnutrition: Severe RUBY PINEDA RESIDENT Sep 02, 2024 11:24
[2024-09-02] MEDS: GASTROGRAFIN 120 ML SOL ONE ×2 (13:38)
[2024-09-02] MEDS: GOLYTELY 4L KIT PO ONE (14:45)
--- NOTE | 2024-09-02 18:47 | DVHPN2 ---
Progress Note Date Seen: Sep 02, 2024 Has the PT tested + for MRSA If YES, has PT been informed?: No Medical Necessity Reason Pt with a Central, PICC or Fol: Yes The following are medically ne: Central Line, Chavez Catheter Reason for chavez catheter: Strict I&O Subjective Patient reports: Other (intubated) Review of Systems: Deferred Objective vital signs Vital Sign Date Time Temp Pulse Resp B/P (MAP) Pulse Ox O2 Delivery O2 Flow Rate FiO2 09/02/24 18:13 78 24 112/59 (76) 96 30 09/02/24 16:00 98.0 98.0 09/02/24 06:00 Mechanical Ventilator+ Total Intake and Output 09/01/24 09/01/24 09/02/24 15:00 23:00 07:00 Intake Total 1490.776 ml 1277.776 ml 1043.768 ml Output Total 490 ml 660 ml Balance 1490.776 ml 787.776 ml 383.768 ml medications Current Medications Medications Dose Ordered Sig/Nikki Route Start Time Stop Time Status Last Admin Dose Admin Diagnostic Test (Pha) 1 strip ACHS 08/19/24 17:00 Cancel Norepinephrine Bitartrate 250 ml @ 3.75 mls/hr Q24H IV 08/19/24 17:15 Cancel Midazolam HCl 50 ml @ 1 mls/hr Q24H IV 08/19/24 17:15 09/02/24 17:59 6 MLS/HR Ipratropium [place] 0.5 mg Q6HR NEB 08/19/24 18:00 09/02/24 18:12 0.5 MG Albuterol 2.5 mg Q6HR NEB 08/19/24 18:00 09/02/24 18:12 2.5 MG Pantoprazole Sodium 40 mg BID IV 08/20/24 22:00 09/02/24 11:29 40 MG Acetaminophen 650 mg Q6HP PRN [place] 08/21/24 01:45 08/23/24 03:36 650 MG Sucralfate 1 gm QID@0600,1130,1700,2200 GT 08/21/24 11:30 08/30/24 21:55 1 GM Amino Acids 0 ml @ 0 mls/hr PER PHARMACY IV 08/24/24 09:00 Meropenem 50 ml @ 17 mls/hr DAILY IV 08/24/24 10:00 09/02/24 13:31 17 MLS/HR Epoetin Aquilino-epbx 10,000 unit TUTHSA@2100 SC 08/26/24 21:00 09/01/24 21:08 10,000 UNIT Albumin Human 100 ml @ 100 mls/hr PRN PRN IV 08/26/24 06:45 08/27/24 07:45 100 MLS/HR Insulin Glargine 10 units DAILY@1000 SC 08/26/24 10:00 09/01/24 10:07 10 UNITS Acetylcysteine 100 mg Q6HR NEB 08/26/24 12:00 09/02/24 18:12 100 MG Propofol 100 ml @ 3.804 mls/ hr Q24H IV 08/27/24 04:30 09/02/24 09:04 26.628 MLS/HR Norepinephrine Bitartrate 32 mg/ Sodium Chloride 250 ml @ 0.469 mls/ hr Q24H IV 08/27/24 13:00 08/31/24 13:00 0.938 MLS/HR Enteral Nutritional Formula 1,000 ml 30ML/HR GT 08/28/24 09:15 Fentanyl Citrate 250 ml @ 2.5 mls/hr Q24H IV 08/30/24 20:00 09/02/24 02:40 30 MLS/HR Micafungin Sodium 100 mg/Sodium Chloride 100 ml @ 100 mls/hr DAILY@0900 IV 09/01/24 09:00 09/02/24 11:23 100 MLS/HR Metoclopramide HCl 10 mg Q8HR IV 08/31/24 22:00 09/02/24 05:54 10 MG Linezolid 300 ml @ 150 mls/hr Q12HR IV 08/31/24 22:00 09/02/24 13:40 150 MLS/HR Heparin Sodium (Porcine) 5,000 units Q12HR SC 08/31/24 22:00 09/02/24 13:29 5,000 UNITS Sodium Chloride 10 ml QSHIFT@10,22 IV 08/31/24 22:00 09/02/24 13:39 10 ML Sodium Chloride 120 meq/Sodium Acetate 20 meq/ Magnesium Sulfate 6 meq/ Multivitamins 10 ml/Chromium/ Copper/Manganese/ Zinc 1 ml/Insulin Human Regular 24 units/Amino Acids/ Dextrose 1,602.74 ml @ 67 mls/hr [id number] IV 09/01/24 22:00 09/02/24 21:59 09/01/24 20:51 67 MLS/HR Diagnostic Test (Pha) 1 strip Q6HR 09/01/24 18:00 09/02/24 15:11 1 STRIP Insulin Human Regular Q6HR SC 09/01/24 18:00 09/02/24 17:21 2 UNITS Dextrose 50 ml UD PRN IV 09/01/24 15:15 Artificial Tears 2 drop Q4HR PRN EACHEYE 09/02/24 10:45 Sodium Chloride 80 meq/Sodium Acetate 60 meq/ Magnesium Sulfate 4 meq/ Multivitamins 10 ml/Chromium/ Copper/Manganese/ Zinc 1 ml/Insulin Human Regular 30 units/Amino Acids/ Dextrose 1,712.3 ml @ 71 mls/hr Q24H8M IV 09/02/24 22:00 09/03/24 21:59 Examination: GENERAL:Abnormal, LUNGS:Abnormal, MSK:Abnormal, NEURO:Abnormal laboratory and microbiology Laboratory Tests 09/02/24 03:14 Test 09/02/24 03:14 Range/Units Serum Glucose 198 H 74-106 mg/dL Microbiology Date/Time Source Procedure Growth Status 08/31/24 18:46 Sacrum Gram Stain - Final Resulted 08/31/24 18:46 Wound Culture - Preliminary Enterococcus faecalis Resulted 08/31/24 15:22 Blood Blood Culture - Preliminary NO GROWTH AFTER 48 HOURS OF INCUBATION. Resulted 08/31/24 15:08 Sputum Gram Stain - Final Resulted 08/31/24 15:08 Sputum Respiratory Culture - Preliminary Resulted 08/31/24 14:00 Urine - [place] Urine Culture - Final Complete Problem List/Assessment/Plan Problem List/Assessment/Plan Acute kidney injury in the setting of hypotension and volume depletion -> ATN believed to be Ozempic induced Uncontrolled diabetes-> HONK acute respiratory failure due to aspiration pneumonia gastric obstruction vs Illeus w/ persistent vomiting carotid artery injury due to temp HD cath s/p vascular surgery repair femoral tunnel HD catheter placed by vascular hyperkalemia HD today off levophed epogen Plan discussed with: Other Dietary Evaluation Review Recommendations by RD: Protein Supplementation, PPN/TPN Comments: Pt is at high risk of malnutrition due to prolonged vomiting leading to inadequate nutrient intake and hypermetabolic state secondary to acute inflammation. Recommendation: 1) Start PN/TPN per pharmacy 2) If GI is accessible, consider TF Pivot 1.5Cal @ 60ml/hr along with Pro-stat 1 pk TID. Start @ 10ml/hr, increase 10ml/hr Q4H until goal rate is reached. Advance TF rate slowly and gradually to prevent Refeeding syndrome. Water Flush 50ml Q4H if allowed. TF Provision --- TF at goal volume to provide 1440 ml total volume, 2160 kcal (+300 kcal via Pro-stat = 2460 kcal), 135 gm pro (+45 gm via ProStat = 180 gm), 1093 ml H20 (meets 100% est. kcal needs, 100% est. protein needs) 3) Monitor Potassium, Phosphate, Magnesium for Refeeding syndrome 4) Des 1 pk daily For DTI 5) Continue current plan of care Expected Outcomes/Goals: Blood glucose to improve Nutrient intake to meet at least 75% estimated needs FU 2-3 days Food and Nutrition Intake (Mod: <75% est energy req 7days Protein Calorie Malnutrition: Severe KASSANDRA VARGAS MD Sep 02, 2024 18:47
--- NOTE | 2024-09-02 18:50 | DVHPNRES ---
Progress Note Date Seen: Sep 02, 2024 Resident Creating Document: MARGARITO CALDERACLAYTONAMANDA RESIDENT Has the PT tested + for MRSA If YES, has PT been informed?: No Medical Necessity Reason Pt with a Central, PICC or Fol: Yes The following are medically ne: Central Line, Chavez Catheter Reason for chavez catheter: Strict I&O Subjective Review of Systems Patient was a 44-year-old male with a past medical history of diabetes presented to the ER with a chief complaint of intractable vomitings and altered level of consciousness. According to the sister patient has been vomiting persistently for 7-10 days before coming to the hospital. She reports that he took a shot of Ozempic before the vomiting started. While in the ER patient was altered and was not able to protect his airways following which it was decided to intubate him and put him on mechanical ventilation. Before intubation when he was laid flat, had vomiting coffee-ground and aspirated. After intubation patient underwent bronchoscopy with removal of mucus plugs from left upper and left lower lung. Past medical history: Diabetes Past surgical history: Left foot surgery Social history: Smokes 1 pack of cigarettes per day, denied alcohol or any other drug use Home medications: ?? Review of systems Patient seen and examined at the bedside Sedated and on mechanical ventilation Urine output noted to be around 500ml overnight and good urine output noted in the morning Abdomen soft but no bowel movement since the patient was in the hospital and absent bowel sounds, on TPN CT with PO contrast to be done Objective vital signs Vital Sign Date Time Temp Pulse Resp B/P (MAP) Pulse Ox O2 Delivery O2 Flow Rate FiO2 09/02/24 18:13 78 24 112/59 (76) 96 30 09/02/24 16:00 98.0 98.0 09/02/24 06:00 Mechanical Ventilator+ Total Intake and Output 09/01/24 09/01/24 09/02/24 15:00 23:00 07:00 Intake Total 1490.776 ml 1277.776 ml 1043.768 ml Output Total 490 ml 660 ml Balance 1490.776 ml 787.776 ml 383.768 ml medications Current Medications Medications Dose Ordered Sig/Nikki Route Start Time Stop Time Status Last Admin Dose Admin Diagnostic Test (Pha) 1 strip ACHS 08/19/24 17:00 Cancel Norepinephrine Bitartrate 250 ml @ 3.75 mls/hr Q24H IV 08/19/24 17:15 Cancel Midazolam HCl 50 ml @ 1 mls/hr Q24H IV 08/19/24 17:15 09/02/24 17:59 6 MLS/HR Ipratropium [place] 0.5 mg Q6HR NEB 08/19/24 18:00 09/02/24 18:12 0.5 MG Albuterol 2.5 mg Q6HR NEB 08/19/24 18:00 09/02/24 18:12 2.5 MG Pantoprazole Sodium 40 mg BID IV 08/20/24 22:00 09/02/24 11:29 40 MG Acetaminophen 650 mg Q6HP PRN SC 08/21/24 01:45 08/23/24 03:36 650 MG Sucralfate 1 gm QID@0600,1130,1700,2200 GT 08/21/24 11:30 08/30/24 21:55 1 GM Amino Acids 0 ml @ 0 mls/hr PER PHARMACY IV 08/24/24 09:00 Meropenem 50 ml @ 17 mls/hr DAILY IV 08/24/24 10:00 09/02/24 13:31 17 MLS/HR Epoetin Aquilino-epbx 10,000 unit TUTHSA@2100 AR 08/26/24 21:00 09/01/24 21:08 10,000 UNIT Albumin Human 100 ml @ 100 mls/hr PRN PRN IV 08/26/24 06:45 08/27/24 07:45 100 MLS/HR Insulin Glargine 10 units DAILY@1000 SC 08/26/24 10:00 09/01/24 10:07 10 UNITS Acetylcysteine 100 mg Q6HR NEB 08/26/24 12:00 09/02/24 18:12 100 MG Propofol 100 ml @ 3.804 mls/ hr Q24H IV 08/27/24 04:30 09/02/24 09:04 26.628 MLS/HR Norepinephrine Bitartrate 32 mg/ Sodium Chloride 250 ml @ 0.469 mls/ hr Q24H IV 08/27/24 13:00 08/31/24 13:00 0.938 MLS/HR Enteral Nutritional Formula 1,000 ml 30ML/HR GT 08/28/24 09:15 Fentanyl Citrate 250 ml @ 2.5 mls/hr Q24H IV 08/30/24 20:00 09/02/24 02:40 30 MLS/HR Micafungin Sodium 100 mg/Sodium Chloride 100 ml @ 100 mls/hr DAILY@0900 IV 09/01/24 09:00 09/02/24 11:23 100 MLS/HR Metoclopramide HCl 10 mg Q8HR IV 08/31/24 22:00 09/02/24 05:54 10 MG Linezolid 300 ml @ 150 mls/hr Q12HR IV 08/31/24 22:00 09/02/24 13:40 150 MLS/HR Heparin Sodium (Porcine) 5,000 units Q12HR SC 08/31/24 22:00 09/02/24 13:29 5,000 UNITS Sodium Chloride 10 ml QSHIFT@10,22 IV 08/31/24 22:00 09/02/24 13:39 10 ML Sodium Chloride 120 meq/Sodium Acetate 20 meq/ Magnesium Sulfate 6 meq/ Multivitamins 10 ml/Chromium/ Copper/Manganese/ Zinc 1 ml/Insulin Human Regular 24 units/Amino Acids/ Dextrose 1,602.74 ml @ 67 mls/hr [id number] IV 09/01/24 22:00 09/02/24 21:59 09/01/24 20:51 67 MLS/HR Diagnostic Test (Pha) 1 strip Q6HR 09/01/24 18:00 09/02/24 15:11 1 STRIP Insulin Human Regular Q6HR SC 09/01/24 18:00 09/02/24 17:21 2 UNITS Dextrose 50 ml UD PRN IV 09/01/24 15:15 Artificial Tears 2 drop Q4HR PRN EACHEYE 09/02/24 10:45 Sodium Chloride 80 meq/Sodium Acetate 60 meq/ Magnesium Sulfate 4 meq/ Multivitamins 10 ml/Chromium/ Copper/Manganese/ Zinc 1 ml/Insulin Human Regular 30 units/Amino Acids/ Dextrose 1,712.3 ml @ 71 mls/hr Q24H8M IV 09/02/24 22:00 09/03/24 21:59 Examination Constitutional: Patient sedated and on mechanical ventilation, RASS -4 Gen - mild conjuctival pallor, no icterus, no cyanosis, no clubbing, no LAD, trace edema . Skin - Patients skin is warm and dry. HEENT - normocephalic, atraumatic, moist mucous membranes. Neck - full ROM, no LAD, no jvd Pulmonary - B/L air entry present, diffuse rales, no wheezing, no stridor. cardiovascular - regular S1,S2 heard, no added sounds, no murmurs heard. GI - soft abdomen. no hepatospleenomegaly. bowel sounds absent sacrum- ulcer seen Neurological - patient was sedated and on mechanical ventilation. Gag reflex present, pupils equal and reactive laboratory and microbiology Laboratory Tests 09/02/24 03:14 Test 09/02/24 03:14 Range/Units Serum Glucose 198 H 74-106 mg/dL Microbiology Date/Time Source Procedure Growth Status 08/31/24 18:46 Sacrum Gram Stain - Final Resulted 08/31/24 18:46 Wound Culture - Preliminary Enterococcus faecalis Resulted 08/31/24 15:22 Blood Blood Culture - Preliminary NO GROWTH AFTER 48 HOURS OF INCUBATION. Resulted 08/31/24 15:08 Sputum Gram Stain - Final Resulted 08/31/24 15:08 Sputum Respiratory Culture - Preliminary Resulted 08/31/24 14:00 Urine - [place] Urine Culture - Final Complete Problem List/Assessment/Plan Problem List/Assessment/Plan Neurology Acute metabolic encephalopathy likely due to sepsis/HHS - on mechanical ventilation Respiratory Acute hypoxic respiratory failure Probable aspiration pneumonia ARDS - on mechanical ventilation with FiO2 30%, peep 8 - chest x-ray shows bilateral patchy opacities - ABG compensated - duonebs q6hr - IV antibiotics meropenem, linezolid, micafungin - sputum culture showed growth of presumptive Mary - repeat sputum cultures show no growth Cardiovascular Shock due to sepsis possibly from aspiration Acute on chronic heart failure with reduced ejection fraction - echo showed LVEF< 40% - off norepinephrine today Infectious disease Septic shock likely due to aspiration pneumonia Infected Sacral ulcer - on IV antibiotics - culture from sacral ulcer growing enterococcus - on linezolid Nephrology Metabolic alkalosis likely from intractable vomiting, resolved KATE on CKD likely due to be VMN from dehydration - on hemodialysis, 3L removed today GI ?Gastroparesis ?Upper GI bleed - no bowel movements since with the patient in the hospital - KUB shows nonobstructive bowel gas pattern - on metoclopramide - Protonix b.i.d., sucralfate q.i.d. - 3 units of PRBC given, H&H stable - GI on board - TPN - CT with PO contrast to be done today Endocrinology Uncontrolled diabetes mellitus with a hyperglycemia Morbid obesity - on insulin sliding scale - lantus 10 U Left upper arm PICC placed on 08/31 Right femoral dialysis catheter placed on 08/24 Chavez's catheter Goals of care discussed with the patient's sister Aidee for over 31 mins. Full code Critical care time spent excluding procedures: 83 minutes Plan discussed with Dr. Flowers Plan discussed with: Other (sister(aidee), RN ( Frantz )) My Orders My Orders Orders - QUINTIN CALDERA RESIDENT Procedure Category Date Status Time Artificial Tear 15ml PHA 09/02/24 In Process Opthalmic (Tears Na 10:45 Dietary Evaluation Review Recommendations by RD: Protein Supplementation, PPN/TPN Comments: Pt is at high risk of malnutrition due to prolonged vomiting leading to inadequate nutrient intake and hypermetabolic state secondary to acute inflammation. Recommendation: 1) Start PN/TPN per pharmacy 2) If GI is accessible, consider TF Pivot 1.5Cal @ 60ml/hr along with Pro-stat 1 pk TID. Start @ 10ml/hr, increase 10ml/hr Q4H until goal rate is reached. Advance TF rate slowly and gradually to prevent Refeeding syndrome. Water Flush 50ml Q4H if allowed. TF Provision --- TF at goal volume to provide 1440 ml total volume, 2160 kcal (+300 kcal via Pro-stat = 2460 kcal), 135 gm pro (+45 gm via ProStat = 180 gm), 1093 ml H20 (meets 100% est. kcal needs, 100% est. protein needs) 3) Monitor Potassium, Phosphate, Magnesium for Refeeding syndrome 4) Des 1 pk daily For DTI 5) Continue current plan of care Expected Outcomes/Goals: Blood glucose to improve Nutrient intake to meet at least 75% estimated needs FU 2-3 days Food and Nutrition Intake (Mod: <75% est energy req 7days Protein Calorie Malnutrition: Severe Date of Service: Sep 02, 2024 Billing Provider: ARMANDO FLOWERS MD Common Visit Codes: 76940-SPZFUCLE CARE 30-74 MIN, 07390-[id number] CARE-EACH +30MIN QUINTIN CALDERA RESIDENT Sep 02, 2024 18:50 ARMANDO FLOWERS MD September 03, 2024 11:42
--- NOTE | 2024-09-02 21:04 | DVH ---
Exam: CT CT AB PEL WITH ORAL CON ONLY History: ILEUS VS OBSTRUCTION Comparison Study: CT CT AB PEL WO CON-NO ORAL OR IV on DOS: 08/19/24 Technique: Multidetector spiral CT of the abdomen was performed from lung bases to pubic symphysis. Imaging was performed without IV contrast. Axial, coronal and sagittal multiplanar reformats were ob tained from the axial data set by the technologist. Radiation Dose : 1. Abdomen/Pelvis: CTDIvol 27.75 mGy, DLP 1858.86 mGy*cm. Findings: Evaluation of solid organs is limited due to lack of intravenous contrast use. Lung Bases: Multifocal pneumonia throughout both lung bases. Liver: The liver is normal in size. No focal lesions. Gallbladder and Biliary Tree: Cholelithiasis. Spleen: Unremarkable Pancreas: The pancreas is grossly normal in appearance. Adrenal Glands: Unremarkable Kidneys: Kidneys are grossly normal without calculi or hydronephrosis. Bladder: Collapsed around a Friedman catheter. Bowel: The stomach is grossly normal in appearance. Small bowel and colon are normal in caliber and d istribution. The appendix is not visualized; however, no secondary findings of acute appendicitis id entified. Ascites: Trace pelvic ascites. Lymphadenopathy: No mesenteric, retroperitoneal or periportal lymphadenopathy. Abdominal Wall and Mesentery: Unremarkable. Vasculature: The visualized abdominal aorta is normal in size and caliber. Evaluation of abdominal a nd pelvic vessels is limited due to lack of intravenous contrast. Pelvic Organs: Unremarkable Musculoskeletal: No aggressive focal bony lesions, acute fractures or dislocation. Surgical fixation hardware seen in the left femur. IMPRESSION: Severe multifocal pneumonia throughout both lung bases. Trace bilateral pleural effusions. No evidence of ileus or obstruction. Radiation optimization: All CT scans at this facility use at least one of these dose optimization shine hniques: automated exposure control mA and/or kV adjustment per patient size (includes targeted exam s where dose is matched to clinical indication) or iterative reconstruction.
[2024-09-02] MEDS: FUROSEMIDE 100 MG/10ML VIAL IV ONE (22:06)
[2024-09-02] MEDS: TPN PER PHARMACY IV NR (22:43)
[2024-09-03] VITALS (110 sets, daily range): BP systolic 95–187; BP diastolic 49–97; PULSE 74–90; RESP 11–28; TEMP 98–98.4; O2SAT 93–100
[2024-09-03 04:14] LABS: Basophils # (auto) 0.1 10 ^3/uL (0-0.2); Eosinophils # (auto) 0.3 10 ^3/uL (0-0.8)
[2024-09-03 04:20] LABS: Basophils % (auto) 0.8 % (0.0-2.0); Eosinophils % (auto) 2.1 % (0.0-7.0); Hematocrit 21.2 % (41.0-53.0); Lymphocytes # (auto) 1.7 10 ^3/uL (0.4-5.4); Lymphocytes % (auto) 13.6 % (10.0-50.0); Mean Corpuscular Hemoglobin 28.6 pg (28.0-32.0); Mean Corpuscular Hgb Conc. 33.2 g/dL (32.0-36.0); Mean Corpuscular Volume 86.3 fL (80.0-100.0); Monocytes # (auto) 0.7 10 ^3/uL (0-1.3); Monocytes % (auto) 5.9 % (0.0-12.0); Neutrophils # (auto) 9.6 10 ^3/uL (1.6-8.6); Neutrophils % (auto) 77.6 % (37.0-80.0); Platelet Count (auto) 343 10^3/uL (140-450); Red Blood Cells 2.45 10^6/uL (4.5-5.90); Red Cell Distribution Width 15.1 % (11.8-14.3); White Blood Cell 12.3 10^3/uL (4.4-10.8)
[2024-09-03 04:35] LABS: Alanine Aminotransferase 21 U/L (7-40); Anion Gap 13 (5-15); BUN/Creatinine Ratio 20.8 (10.0-20.0); Carbon Dioxide 23 mmol/L (20-31); Chloride 98 mmol/L (98-107); Potassium 3.7 mmol/L (3.5-5.1); Total Protein 6.8 g/dL (5.7-8.2)
[2024-09-03 04:36] LABS: Aspartate Aminotransferase 25 U/L (13-40)
[2024-09-03 04:52] LABS: Alkaline Phosphatase 537 U/L (46-116); Glucose 149 mg/dL (74-106); Phosphorus 6.8 mg/dL (2.4-5.1); Sodium 134 mmol/L (136-145)
[2024-09-03 04:53] LABS: Albumin 2.9 g/dL (3.2-4.8); Bilirubin, Total 0.2 mg/dL (0.2-1.0); Blood Urea Nitrogen 102 mg/dL (9-23)
--- NOTE | 2024-09-03 05:47 | DVH ---
EXAM: XR Chest, 1 View CLINICAL INDICATION: on vent., ARDS TECHNIQUE: Frontal view of the chest. COMPARISON: XY CHEST XRAY 1 VIEW on DOS: 09/02/24, XY CHEST PORTABLE on DOS: 09/01/24, XY CHEST SARAH BLE on DOS: 08/31/24, XY CHEST PORTABLE on DOS: 08/30/24, XY CHEST PORTABLE on DOS: 08/29/24 FINDINGS: LUNGS AND PLEURAL SPACES: Pulmonary congestion and edema. Pneumonia cannot be excluded. No pneumot horax. HEART: Unremarkable. No cardiomegaly. MEDIASTINUM: Unremarkable. Normal mediastinal contour. BONES/JOINTS: Unremarkable. No acute fracture. TUBES, LINES AND DEVICES: The endotracheal tube (ETT) is in satisfactory position. Enteric tube ti p in the stomach. OTHER FINDINGS: . . . IMPRESSION: Pulmonary congestion and edema. Pneumonia cannot be excluded.
[2024-09-03] MEDS: SODIUM CHL 0.9% 1000 ML BAG XX ONE (09:25)
[2024-09-03] MEDS ORDERED: Glucerna 1.2 Cal 1Liter BOTTLE GT SCH (10:30)
--- NOTE | 2024-09-03 10:33 | DVHPN2 ---
Progress Note Date Seen: September 03, 2024 Resident Creating Document: RUBY PINEDA RESIDENT Has the PT tested + for MRSA If YES, has PT been informed?: No Medical Necessity Reason Pt with a Central, PICC or Fol: Yes The following are medically ne: Central Line, Chavez Catheter Reason for chavez catheter: Strict I&O Subjective Review of Systems Patient seen and examined at the bedside. Unable to obtain ROS due to patient clinical status, patient is intubated and mechanically ventilated. Overnight events reviewed, NG suction showed coffee-ground secretions overnight and today moaning into his yellowish bile. Hemoglobin is dropped to 7, currently transfusion PRBC. Objective vital signs Vital Sign Date Time Temp Pulse Resp B/P (MAP) Pulse Ox O2 Delivery O2 Flow Rate FiO2 09/03/24 09:23 125/64 09/03/24 09:03 98.4 80 24 98.4 09/03/24 08:31 97 30 09/03/24 06:00 Mechanical Ventilator+ Total Intake and Output 09/02/24 09/02/24 09/03/24 14:59 22:59 06:59 Intake Total 1306.305 ml 1331.364 ml 1318.896 ml Output Total 350 ml 1325 ml Balance 1306.305 ml 981.364 ml -6.104 ml medications Current Medications Medications Dose Ordered Sig/Nikki Route Start Time Stop Time Status Last Admin Dose Admin Diagnostic Test (Pha) 1 strip ACHS 08/19/24 17:00 Cancel Norepinephrine Bitartrate 250 ml @ 3.75 mls/hr Q24H IV 08/19/24 17:15 Cancel Midazolam HCl 50 ml @ 1 mls/hr Q24H IV 08/19/24 17:15 09/03/24 08:29 5 MLS/HR Ipratropium [place] 0.5 mg Q6HR NEB 08/19/24 18:00 09/03/24 06:14 0.5 MG Albuterol 2.5 mg Q6HR NEB 08/19/24 18:00 09/03/24 06:14 2.5 MG Pantoprazole Sodium 40 mg BID IV 08/20/24 22:00 09/02/24 22:06 40 MG Acetaminophen [address] 08/21/24 01:45 08/23/24 03:36 650 MG Sucralfate 1 gm QID@0600,1130,1700,2200 GT 08/21/24 11:30 08/30/24 21:55 1 GM Amino Acids 0 ml @ 0 mls/hr PER PHARMACY IV 08/24/24 09:00 Meropenem 50 ml @ 17 mls/hr DAILY IV 08/24/24 10:00 09/02/24 13:31 17 MLS/HR Epoetin Aquilino-epbx 10,000 unit TUTHSA@2100 SC 08/26/24 21:00 09/01/24 21:08 10,000 UNIT Albumin Human 100 ml @ 100 mls/hr PRN PRN IV 08/26/24 06:45 08/27/24 07:45 100 MLS/HR Insulin Glargine 10 units DAILY@1000 SC 08/26/24 10:00 09/01/24 10:07 10 UNITS Acetylcysteine 100 mg Q6HR NEB 08/26/24 12:00 09/03/24 06:14 100 MG Propofol 100 ml @ 3.804 mls/ hr Q24H IV 08/27/24 04:30 09/03/24 09:23 26.628 MLS/HR Norepinephrine Bitartrate 32 mg/ Sodium Chloride 250 ml @ 0.469 mls/ hr Q24H IV 08/27/24 13:00 08/31/24 13:00 0.938 MLS/HR Enteral Nutritional Formula 1,000 ml 30ML/HR GT 08/28/24 09:15 Fentanyl Citrate 250 ml @ 2.5 mls/hr Q24H IV 08/30/24 20:00 09/03/24 02:37 27.5 MLS/HR Micafungin Sodium 100 mg/Sodium Chloride 100 ml @ 100 mls/hr DAILY@0900 IV 09/01/24 09:00 09/02/24 11:23 100 MLS/HR Metoclopramide HCl 10 mg Q8HR IV 08/31/24 22:00 09/03/24 05:32 10 MG Linezolid 300 ml @ 150 mls/hr Q12HR IV 08/31/24 22:00 09/02/24 22:15 150 MLS/HR Heparin Sodium (Porcine) 5,000 units Q12HR SC 08/31/24 22:00 09/02/24 22:12 5,000 UNITS Sodium Chloride 10 ml QSHIFT@10,22 IV 08/31/24 22:00 09/02/24 22:15 10 ML Diagnostic Test (Pha) 1 strip Q6HR 09/01/24 18:00 09/03/24 05:31 1 STRIP Insulin Human Regular Q6HR SC 09/01/24 18:00 09/03/24 00:09 3 UNITS Dextrose 50 ml UD PRN IV 09/01/24 15:15 Artificial Tears 2 drop Q4HR PRN EACHEYE 09/02/24 10:45 Sodium Chloride 80 meq/Sodium Acetate 60 meq/ Magnesium Sulfate 4 meq/ Multivitamins 10 ml/Chromium/ Copper/Manganese/ Zinc 1 ml/Insulin Human Regular 30 units/Amino Acids/ Dextrose 1,712.3 ml @ 71 mls/hr Q24H8M IV 09/02/24 22:00 09/03/24 21:59 09/02/24 22:43 71 MLS/HR Enteral Nutritional Formula 1,000 ml 30ML/HR GT 09/03/24 10:30 UNV Lactulose 30 ml Q8HR PO 09/03/24 14:00 UNV Examination General: Mechanically ventilated, sedated HEENT: Head is normocephalic and atraumatic. Pupils are equal, round, and reactive to light Neck: Supple with no cervical lymphadenopathy. Heart: Regular rate without murmur, rub, or gallop. Lungs: Bilateral crackles, most prominent on bases Abdomen: No external sign of injury. Bowel sounds present t.. Abdomen is soft, nontender. Extremities: faint peripheral pulses. There is no clubbing, no cyanosis, and no edema. Skin: No rash. laboratory and microbiology Laboratory Tests 09/03/24 03:30 Test 09/03/24 03:30 Range/Units Serum Glucose 149 H 74-106 mg/dL Microbiology Date/Time Source Procedure Growth Status 08/31/24 18:46 Sacrum Gram Stain - Final Resulted 08/31/24 18:46 Wound Culture - Preliminary Enterococcus faecalis Resulted 08/31/24 15:22 Blood Blood Culture - Preliminary NO GROWTH AFTER 48 HOURS OF INCUBATION. Resulted 08/31/24 15:08 Sputum Gram Stain - Final Resulted 08/31/24 15:08 Sputum Respiratory Culture - Preliminary Resulted 08/31/24 14:00 Urine - [place] Urine Culture - Final Complete Labs and/or images reviewed: Labs reviewed by me, Image(s) reviewed by me Problem List/Assessment/Plan Problem List/Assessment/Plan GI bleed possible gastritis esophagitis Gastric obstruction vs Ileus vs gastroparesis Acute metabolic/toxic encephalopathy Acute hypoxic respiratory failure due to aspiration Septic shock due to aspiration pneumonia Elevated liver enzymes in the setting of septic shock Acute kidney injury in the setting of hypotension and volume depletion Plan Transfuse PRBC Hold blood thinners Lactulose 30 mL b.i.d. Start tube feedings 20 mL/hour Protonix 40 mg b.i.d. We will recommend small bowel series with a Gastrografin Monitor CBC NG tube with intermittent suction Continue hemodialysis Continue ventilator management Rest of the management as per ICU team Thank you so much for the opportunity to consult on your patient. GI team will follow the patient Case an action plan discussed with Dr. Linda Brennan. Complex care planning needed total 49 minutes of detailed discussion. Plan discussed with: Patient Dietary Evaluation Review Recommendations by RD: Protein Supplementation, PPN/TPN Comments: Pt is at high risk of malnutrition due to prolonged vomiting leading to inadequate nutrient intake and hypermetabolic state secondary to acute inflammation. Recommendation: 1) Start PN/TPN per pharmacy 2) If GI is accessible, consider TF Pivot 1.5Cal @ 60ml/hr along with Pro-stat 1 pk TID. Start @ 10ml/hr, increase 10ml/hr Q4H until goal rate is reached. Advance TF rate slowly and gradually to prevent Refeeding syndrome. Water Flush 50ml Q4H if allowed. TF Provision --- TF at goal volume to provide 1440 ml total volume, 2160 kcal (+300 kcal via Pro-stat = 2460 kcal), 135 gm pro (+45 gm via ProStat = 180 gm), 1093 ml H20 (meets 100% est. kcal needs, 100% est. protein needs) 3) Monitor Potassium, Phosphate, Magnesium for Refeeding syndrome 4) Des 1 pk daily For DTI 5) Continue current plan of care Expected Outcomes/Goals: Blood glucose to improve Nutrient intake to meet at least 75% estimated needs FU 2-3 days Food and Nutrition Intake (Mod: <75% est energy req 7days Protein Calorie Malnutrition: Severe NITIN PINEDAMonicaJOAN RESIDENT September 03, 2024 10:33
--- NOTE | 2024-09-03 10:51 | DVHPN2 ---
Progress Note Date Seen: September 03, 2024 Has the PT tested + for MRSA If YES, has PT been informed?: No Medical Necessity Reason Pt with a Central, PICC or Fol: Yes The following are medically ne: Central Line, Chavez Catheter Reason for chavez catheter: Strict I&O Subjective Patient reports: Other (Patient remains intubated) Review of Systems: Deferred Objective vital signs Vital Sign Date Time Temp Pulse Resp B/P (MAP) Pulse Ox O2 Delivery O2 Flow Rate FiO2 09/03/24 10:24 85 28 149/80 (103) 97 30 09/03/24 09:03 98.4 98.4 09/03/24 06:00 Mechanical Ventilator+ Total Intake and Output 09/02/24 09/02/24 09/03/24 15:00 23:00 07:00 Intake Total 1472.836 ml 1168.372 ml 1185.268 ml Output Total 350 ml 1325 ml Balance 1472.836 ml 818.372 ml -139.732 ml medications Current Medications Medications Dose Ordered Sig/Nikki Route Start Time Stop Time Status Last Admin Dose Admin Diagnostic Test (Pha) 1 strip ACHS 08/19/24 17:00 Cancel Norepinephrine Bitartrate 250 ml @ 3.75 mls/hr Q24H IV 08/19/24 17:15 Cancel Midazolam HCl 50 ml @ 1 mls/hr Q24H IV 08/19/24 17:15 09/03/24 08:29 5 MLS/HR Ipratropium [place] 0.5 mg Q6HR NEB 08/19/24 18:00 09/03/24 06:14 0.5 MG Albuterol 2.5 mg Q6HR NEB 08/19/24 18:00 09/03/24 06:14 2.5 MG Pantoprazole Sodium 40 mg BID IV 08/20/24 22:00 09/02/24 22:06 40 MG Acetaminophen 650 mg Q6HP PRN TN 08/21/24 01:45 08/23/24 03:36 650 MG Sucralfate 1 gm QID@0600,1130,1700,2200 GT 08/21/24 11:30 08/30/24 21:55 1 GM Amino Acids 0 ml @ 0 mls/hr PER PHARMACY IV 08/24/24 09:00 Meropenem 50 ml @ 17 mls/hr DAILY IV 08/24/24 10:00 09/02/24 13:31 17 MLS/HR Epoetin Aquilino-epbx 10,000 unit TUTHSA@2100 SC 08/26/24 21:00 09/01/24 21:08 10,000 UNIT Albumin Human 100 ml @ 100 mls/hr PRN PRN IV 08/26/24 06:45 08/27/24 07:45 100 MLS/HR Insulin Glargine 10 units DAILY@1000 SC 08/26/24 10:00 09/01/24 10:07 10 UNITS Acetylcysteine 100 mg Q6HR NEB 08/26/24 12:00 09/03/24 06:14 100 MG Propofol 100 ml @ 3.804 mls/ hr Q24H IV 08/27/24 04:30 09/03/24 09:23 26.628 MLS/HR Norepinephrine Bitartrate 32 mg/ Sodium Chloride 250 ml @ 0.469 mls/ hr Q24H IV 08/27/24 13:00 08/31/24 13:00 0.938 MLS/HR Enteral Nutritional Formula 1,000 ml 30ML/HR GT 08/28/24 09:15 Fentanyl Citrate 250 ml @ 2.5 mls/hr Q24H IV 08/30/24 20:00 09/03/24 02:37 27.5 MLS/HR Micafungin Sodium 100 mg/Sodium Chloride 100 ml @ 100 mls/hr DAILY@0900 IV 09/01/24 09:00 09/02/24 11:23 100 MLS/HR Metoclopramide HCl 10 mg Q8HR IV 08/31/24 22:00 09/03/24 05:32 10 MG Linezolid 300 ml @ 150 mls/hr Q12HR IV 08/31/24 22:00 09/02/24 22:15 150 MLS/HR Heparin Sodium (Porcine) 5,000 units Q12HR SC 08/31/24 22:00 09/02/24 22:12 5,000 UNITS Sodium Chloride 10 ml QSHIFT@10,22 IV 08/31/24 22:00 09/02/24 22:15 10 ML Diagnostic Test (Pha) 1 strip Q6HR 09/01/24 18:00 09/03/24 05:31 1 STRIP Insulin Human Regular Q6HR SC 09/01/24 18:00 09/03/24 00:09 3 UNITS Dextrose 50 ml UD PRN IV 09/01/24 15:15 Artificial Tears 2 drop Q4HR PRN EACHEYE 09/02/24 10:45 Sodium Chloride 80 meq/Sodium Acetate 60 meq/ Magnesium Sulfate 4 meq/ Multivitamins 10 ml/Chromium/ Copper/Manganese/ Zinc 1 ml/Insulin Human Regular 30 units/Amino Acids/ Dextrose 1,712.3 ml @ 71 mls/hr Q24H8M IV 09/02/24 22:00 09/03/24 21:59 09/02/24 22:43 71 MLS/HR Enteral Nutritional Formula 1,000 ml 30ML/HR GT 09/03/24 10:30 Lactulose 30 ml Q8HR PO 09/03/24 14:00 Sodium Chloride 90 meq/Sodium Acetate 60 meq/ Potassium Acetate 10 meq/Magnesium Sulfate 6 meq/ Multivitamins 10 ml/Chromium/ Copper/Manganese/ Zinc 1 ml/Insulin Human Regular 26 units/Amino Acids/ Dextrose 1,720.26 ml @ 71 mls/hr [id number] IV 09/03/24 22:00 09/04/24 21:59 Examination: GENERAL:Abnormal, LUNGS:Abnormal, MSK:Abnormal, SKIN:Abnormal, NEURO:Abnormal laboratory and microbiology Laboratory Tests 09/03/24 03:30 Test 09/03/24 03:30 Range/Units Serum Glucose 149 H 74-106 mg/dL Microbiology Date/Time Source Procedure Growth Status 08/31/24 18:46 Sacrum Gram Stain - Final Resulted 08/31/24 18:46 Wound Culture - Preliminary Enterococcus faecalis Resulted 08/31/24 15:22 Blood Blood Culture - Preliminary NO GROWTH AFTER 48 HOURS OF INCUBATION. Resulted 08/31/24 15:08 Sputum Gram Stain - Final Resulted 08/31/24 15:08 Sputum Respiratory Culture - Preliminary Resulted 08/31/24 14:00 Urine - [place] Urine Culture - Final Complete Problem List/Assessment/Plan Problem List/Assessment/Plan Acute kidney injury in the setting of hypotension and volume depletion -> ATN Uncontrolled diabetes Ventilator-dependent hypoxic acute respiratory failure due to aspiration pneumonia gastric obstruction vs Illeus w/ persistent vomiting carotid artery injury due to temp HD cath s/p vascular surgery repair femoral tunnel HD catheter placed by vascular hyperkalemia Recommendations HD today repeating for solute clearance epogen Plan discussed with: Other My Orders My Orders Orders - KASSANDRA VARGAS MD Procedure Category Date Status Time Hemodialysis Orders ORDERS 09/03/24 Transmitted 09:32 Dietary Evaluation Review Recommendations by RD: Protein Supplementation, PPN/TPN Comments: Pt is at high risk of malnutrition due to prolonged vomiting leading to inadequate nutrient intake and hypermetabolic state secondary to acute inflammation. Recommendation: 1) Start PN/TPN per pharmacy 2) If GI is accessible, consider TF Pivot 1.5Cal @ 60ml/hr along with Pro-stat 1 pk TID. Start @ 10ml/hr, increase 10ml/hr Q4H until goal rate is reached. Advance TF rate slowly and gradually to prevent Refeeding syndrome. Water Flush 50ml Q4H if allowed. TF Provision --- TF at goal volume to provide 1440 ml total volume, 2160 kcal (+300 kcal via Pro-stat = 2460 kcal), 135 gm pro (+45 gm via ProStat = 180 gm), 1093 ml H20 (meets 100% est. kcal needs, 100% est. protein needs) 3) Monitor Potassium, Phosphate, Magnesium for Refeeding syndrome 4) Des 1 pk daily For DTI 5) Continue current plan of care Expected Outcomes/Goals: Blood glucose to improve Nutrient intake to meet at least 75% estimated needs FU 2-3 days Food and Nutrition Intake (Mod: <75% est energy req 7days Protein Calorie Malnutrition: Severe KASSANDRA VARGAS MD September 03, 2024 10:51
[2024-09-03 14:08] LABS: Eosinophils # (auto) 0.3 10 ^3/uL (0-0.8)
[2024-09-03 14:11] LABS: Basophils # (auto) 0.1 10 ^3/uL (0-0.2); Basophils % (auto) 0.6 % (0.0-2.0); Eosinophils % (auto) 1.7 % (0.0-7.0); Hematocrit 24.4 % (41.0-53.0); Hemoglobin 8.3 g/dL (13.5-17.5); Lymphocytes # (auto) 1.3 10 ^3/uL (0.4-5.4); Lymphocytes % (auto) 7.6 % (10.0-50.0); Mean Corpuscular Hemoglobin 29.1 pg (28.0-32.0); Mean Corpuscular Hgb Conc. 34.2 g/dL (32.0-36.0); Mean Corpuscular Volume 85.1 fL (80.0-100.0); Monocytes # (auto) 0.9 10 ^3/uL (0-1.3); Monocytes % (auto) 5.6 % (0.0-12.0); Neutrophils # (auto) 14.4 10 ^3/uL (1.6-8.6); Neutrophils % (auto) 84.5 % (37.0-80.0); Nucleated Red Blood Cells % 0.1 %; Platelet Count (auto) 376 10^3/uL (140-450); Red Blood Cells 2.87 10^6/uL (4.5-5.90); Red Cell Distribution Width 15.1 % (11.8-14.3); White Blood Cell 17.1 10^3/uL (4.4-10.8)
[2024-09-03] MEDS: LACTULOSE 20Gm/30ML SOLN PO SCH (14:48)
[2024-09-03 15:51] LABS: Base Excess 1.3 mmol/L (-2.0-3.0)
--- NOTE | 2024-09-03 16:22 | DVH ---
CHEST RADIOGRAPH Indication: VERIFY PLACEMENT OF GASTRIC DOBHOFF FEEDING TUBE Technique: Single frontal view of the chest was obtained COMPARISON: XY CHEST XRAY 1 VIEW on DOS: 09/03/24, XY CHEST XRAY 1 VIEW on DOS: 09/02/24, XY CHEST SARAH BLE on DOS: 09/01/24, XY CHEST PORTABLE on DOS: 08/31/24, XY CHEST PORTABLE on DOS: 08/30/24 FINDINGS: Lines and Tubes: Endotracheal tube, enteric catheter in satisfactory position. Weighted feeding tube tip at the distal esophagus. Lungs: Severe multifocal airspace disease. Pleura: No effusion. No pneumothorax. Cardiomediastinal contours: Unremarkable Bones: Unremarkable IMPRESSION: Weighted enteric catheter tip at the distal esophagus. Further advancement required. Other lines and tubes are in satisfactory position.
[2024-09-03] MEDS: FUROSEMIDE 100 MG/10ML VIAL IV ONE (18:35)
--- NOTE | 2024-09-03 20:11 | DVHPNRES ---
Progress Note Date Seen: September 03, 2024 Resident Creating Document: MARGARITO CALDERACLAYTONAMANDA RESIDENT Has the PT tested + for MRSA If YES, has PT been informed?: No Medical Necessity Reason Pt with a Central, PICC or Fol: Yes The following are medically ne: Central Line, Chavez Catheter Reason for chavez catheter: Strict I&O Subjective Review of Systems Patient was a 44-year-old male with a past medical history of diabetes presented to the ER with a chief complaint of intractable vomitings and altered level of consciousness. According to the sister patient has been vomiting persistently for 7-10 days before coming to the hospital. She reports that he took a shot of Ozempic before the vomiting started. While in the ER patient was altered and was not able to protect his airways following which it was decided to intubate him and put him on mechanical ventilation. Before intubation when he was laid flat, had vomiting coffee-ground and aspirated. After intubation patient underwent bronchoscopy with removal of mucus plugs from left upper and left lower lung. Past medical history: Diabetes Past surgical history: Left foot surgery Social history: Smokes 1 pack of cigarettes per day, denied alcohol or any other drug use Home medications: ?? Review of systems Patient seen and examined at the bedside Sedated and on mechanical ventilation Urine output 1000ml overnight and good urine output noted in the morning CT abd/pelvis with PO contrast showed no obstruction and contrast seen in the rectum Abdomen soft, bowel sounds heard but no bowel movement, dobhoff tube placed and trickle feeding started, TPN to be weaned off per protocol Objective vital signs Vital Sign Date Time Temp Pulse Resp B/P (MAP) Pulse Ox O2 Delivery O2 Flow Rate FiO2 09/03/24 20:04 141/80 09/03/24 19:55 79 24 97 30 09/03/24 18:00 Mechanical Ventilator+ 09/03/24 09:03 98.4 98.4 Total Intake and Output 09/02/24 09/02/24 09/03/24 15:00 23:00 07:00 Intake Total 1472.836 ml 1168.372 ml 1315.396 ml Output Total 350 ml 1325 ml Balance 1472.836 ml 818.372 ml -9.604 ml medications Current Medications Medications Dose Ordered Sig/Nikki Route Start Time Stop Time Status Last Admin Dose Admin Diagnostic Test (Pha) 1 strip ACHS 08/19/24 17:00 Cancel Norepinephrine Bitartrate 250 ml @ 3.75 mls/hr Q24H IV 08/19/24 17:15 Cancel Midazolam HCl 50 ml @ 1 mls/hr Q24H IV 08/19/24 17:15 09/03/24 13:01 5 MLS/HR Ipratropium [place] 0.5 mg Q6HR NEB 08/19/24 18:00 09/03/24 18:30 0.5 MG Albuterol 2.5 mg Q6HR NEB 08/19/24 18:00 09/03/24 18:30 2.5 MG Pantoprazole Sodium 40 mg BID IV 08/20/24 22:00 09/02/24 22:06 40 MG Acetaminophen 650 mg Q6HP PRN [place] 08/21/24 01:45 08/23/24 03:36 650 MG Sucralfate 1 gm QID@0600,1130,1700,2200 GT 08/21/24 11:30 09/03/24 18:34 1 GM Amino Acids 0 ml @ 0 mls/hr PER PHARMACY IV 08/24/24 09:00 Meropenem 50 ml @ 17 mls/hr DAILY IV 08/24/24 10:00 09/02/24 13:31 17 MLS/HR Epoetin Aquilino-epbx 10,000 unit TUTHSA@2100 SC 08/26/24 21:00 09/01/24 21:08 10,000 UNIT Albumin Human 100 ml @ 100 mls/hr PRN PRN IV 08/26/24 06:45 08/27/24 07:45 100 MLS/HR Insulin Glargine 10 units DAILY@1000 SC 08/26/24 10:00 09/03/24 10:00 10 UNITS Propofol 100 ml @ 3.804 mls/ hr Q24H IV 08/27/24 04:30 09/03/24 20:04 26.628 MLS/HR Norepinephrine Bitartrate 32 mg/ Sodium Chloride 250 ml @ 0.469 mls/ hr Q24H IV 08/27/24 13:00 08/31/24 13:00 0.938 MLS/HR Fentanyl Citrate 250 ml @ 2.5 mls/hr Q24H IV 08/30/24 20:00 09/03/24 12:06 27.5 MLS/HR Micafungin Sodium 100 mg/Sodium Chloride 100 ml @ 100 mls/hr DAILY@0900 IV 09/01/24 09:00 09/02/24 11:23 100 MLS/HR Metoclopramide HCl 10 mg Q8HR IV 08/31/24 22:00 09/03/24 14:48 10 MG Linezolid 300 ml @ 150 mls/hr Q12HR IV 08/31/24 22:00 09/02/24 22:15 150 MLS/HR Heparin Sodium (Porcine) 5,000 units Q12HR SC 08/31/24 22:00 Hold 09/02/24 22:12 5,000 UNITS Sodium Chloride 10 ml QSHIFT@10,22 IV 08/31/24 22:00 09/03/24 10:53 10 ML Diagnostic Test (Pha) 1 strip Q6HR 09/01/24 18:00 09/03/24 18:00 1 STRIP Insulin Human Regular Q6HR SC 09/01/24 18:00 09/03/24 18:47 3 UNITS Dextrose 50 ml UD PRN IV 09/01/24 15:15 Artificial Tears 2 drop Q4HR PRN EACHEYE 09/02/24 10:45 Sodium Chloride 80 meq/Sodium Acetate 60 meq/ Magnesium Sulfate 4 meq/ Multivitamins 10 ml/Chromium/ Copper/Manganese/ Zinc 1 ml/Insulin Human Regular 30 units/Amino Acids/ Dextrose 1,712.3 ml @ 71 mls/hr Q24H8M IV 09/02/24 22:00 09/03/24 21:59 09/02/24 22:43 71 MLS/HR Lactulose 30 ml Q8HR PO 09/03/24 14:00 09/03/24 14:48 30 ML Sodium Chloride 90 meq/Sodium Acetate 60 meq/ Potassium Acetate 10 meq/Magnesium Sulfate 6 meq/ Multivitamins 10 ml/Chromium/ Copper/Manganese/ Zinc 1 ml/Insulin Human Regular 26 units/Amino Acids/ Dextrose 1,720.26 ml @ 71 mls/hr [id number] IV 09/03/24 22:00 09/04/24 21:59 Enteral Nutritional Formula 1,000 ml 15ML/HR GT 09/03/24 17:30 Examination Constitutional: Patient sedated and on mechanical ventilation, RASS -4 Gen - mild conjuctival pallor, no icterus, no cyanosis, no clubbing, no LAD, 1+ edema in the feet . Skin - Patients skin is warm and dry. HEENT - normocephalic, atraumatic, moist mucous membranes. Neck - full ROM, no LAD, no jvd Pulmonary - B/L air entry present, diffuse rales, no wheezing, no stridor. cardiovascular - regular S1,S2 heard, no added sounds, no murmurs heard. GI - soft abdomen. no hepatospleenomegaly. bowel sounds hypoactive sacrum- ulcer seen Neurological - patient was sedated and on mechanical ventilation. Gag reflex present, pupils equal and reactive laboratory and microbiology Laboratory Tests 09/03/24 13:55 09/03/24 03:30 Test 09/03/24 03:30 Range/Units Serum Glucose 149 H 74-106 mg/dL Microbiology Date/Time Source Procedure Growth Status 08/31/24 18:46 Sacrum Gram Stain - Final Resulted 08/31/24 18:46 Wound Culture - Preliminary Enterococcus faecalis Resulted 08/31/24 15:22 Blood Blood Culture - Preliminary NO GROWTH AFTER 72 HOURS OF INCUBATION. Resulted 08/31/24 15:08 Sputum Gram Stain - Final Resulted 08/31/24 15:08 Sputum Respiratory Culture - Preliminary Resulted 08/31/24 14:00 Urine - [place] Urine Culture - Final Complete Problem List/Assessment/Plan Problem List/Assessment/Plan Neurology Acute metabolic encephalopathy likely due to sepsis/HHS - on mechanical ventilation Respiratory Acute hypoxic respiratory failure Probable aspiration pneumonia ARDS - on mechanical ventilation with FiO2 30%, peep 8 - chest x-ray shows bilateral patchy opacities - ABG compensated - duonebs q6hr - IV antibiotics meropenem, linezolid, micafungin - sputum culture showed growth of yeast Cardiovascular Shock due to sepsis possibly from aspiration Acute on chronic heart failure with reduced ejection fraction - echo showed LVEF< 40% - off norepinephrine Infectious disease Septic shock likely due to aspiration pneumonia Infected Sacral ulcer, unstageable pressure ulcer - on IV antibiotics - culture from sacral ulcer growing enterococcus - blood culture growing S epidermidis - on linezolid Nephrology Metabolic alkalosis likely from intractable vomiting, resolved KATE on CKD likely due to be VMN from dehydration - on hemodialysis - urine output improved - lasix 80mg daily GI ?Gastroparesis ?Upper GI bleed - no bowel movements since with the patient in the hospital - KUB shows nonobstructive bowel gas pattern - on metoclopramide - Protonix b.i.d., sucralfate q.i.d. - 4 units of PRBC given, H&H stable - GI on board - CT with PO contrast showed no obstruction, started on tricke feed with dobhoff tube, TPN to be weaned off per protocol - lactulose q8hr Endocrinology Uncontrolled diabetes mellitus with a hyperglycemia Morbid obesity - on insulin sliding scale - lantus 10 U diet: dobhoff tube DVT prophylaxis: heparin held d/t GI bleed, SCD Left upper arm PICC placed on 08/31 Right femoral dialysis catheter placed on 08/24 Chavez's catheter Goals of care discussed with the patient's sister Sheree for over 27 mins. Full code Critical care time spent excluding procedures: 81 minutes Plan discussed with Dr. Flowers Plan discussed with: Other (Sister ( Sheree ), RN ( Armida )) My Orders My Orders Orders - QUINTIN CALDERA RESIDENT Procedure Category Date Status Time Lactulose Oral PHA 09/03/24 In Process 14:00 Nutritional PHA 09/03/24 In Process Supplements (Pivot 17:30 Dietary Evaluation Review Recommendations by RD: Protein Supplementation, PPN/TPN Comments: Pt is at high risk of malnutrition due to prolonged vomiting leading to inadequate nutrient intake and hypermetabolic state secondary to acute inflammation. Recommendation: 1) Start PN/TPN per pharmacy 2) If GI is accessible, consider TF Pivot 1.5Cal @ 60ml/hr along with Pro-stat 1 pk TID. Start @ 10ml/hr, increase 10ml/hr Q4H until goal rate is reached. Advance TF rate slowly and gradually to prevent Refeeding syndrome. Water Flush 50ml Q4H if allowed. TF Provision --- TF at goal volume to provide 1440 ml total volume, 2160 kcal (+300 kcal via Pro-stat = 2460 kcal), 135 gm pro (+45 gm via ProStat = 180 gm), 1093 ml H20 (meets 100% est. kcal needs, 100% est. protein needs) 3) Monitor Potassium, Phosphate, Magnesium for Refeeding syndrome 4) Des 1 pk daily For DTI 5) Continue current plan of care Expected Outcomes/Goals: Blood glucose to improve Nutrient intake to meet at least 75% estimated needs FU 2-3 days Food and Nutrition Intake (Mod: <75% est energy req 7days Protein Calorie Malnutrition: Severe Date of Service: September 03, 2024 Billing Provider: ARMANDO FLOWERS MD Common Visit Codes: [id number] CARE 30-74 MIN, [id number] CARE-EACH +30MIN QUINTIN CALDERA RESIDENT September 03, 2024 20:11 ARMANDO FLOWERS MD September 06, 2024 12:15
[2024-09-03] MEDS ORDERED: DEXTROSE (50%) 50ML SYRG IV PRN (21:00)
[2024-09-03] MEDS: TPN PER PHARMACY IV NR (22:16)
--- NOTE | 2024-09-03 23:06 | DVH ---
CHEST RADIOGRAPH Indication: CONFIRM PLACEMENT OF DOBHOFF AFTER TUBE ADVANCEMENT Technique: Single frontal view of the chest was obtained Comparison: XY CHEST PORTABLE on DOS: 09/03/24, XY CHEST XRAY 1 VIEW on DOS: 09/03/24, XY CHEST XRAY 1 EW on DOS: 09/02/24 FINDINGS: Dobbhoff tube is in the distal esophagus. I would advanced it 10 cm. Lungs are consistent with pneumonia.. IMPRESSION: Dobbhoff tube tip is in the esophagus I would advanced dobbhoff tube 10 cm
[2024-09-03] MEDS: ACCU-CHEK COMFORT CURVE STRIP VI SCH (23:40)
[2024-09-03] MEDS: InsuLIN REG 1unit/0.01ml Soln (100units/ml) SC SCH (23:42)
[2024-09-04] VITALS (119 sets, daily range): BP systolic 91–172; BP diastolic 40–91; PULSE 72–97; RESP 14–30; TEMP 98.2–99; O2SAT 93–100
--- NOTE | 2024-09-04 01:27 | DVH ---
CHEST RADIOGRAPH Indication: dobhoff placement after tube advancement for the 2nd time Technique: Single frontal view of the chest was obtained COMPARISON: XY CHEST PORTABLE on DOS: 09/03/24 FINDINGS / IMPRESSION: Dobbhoff tube has been advanced the tip of which is now coiled in the gastric fundus and should be re positioned.
[2024-09-04 04:15] LABS: Basophils # (auto) 0 10 ^3/uL (0-0.2); Basophils % (auto) 0.3 % (0.0-2.0); Eosinophils # (auto) 0.4 10 ^3/uL (0-0.8); Eosinophils % (auto) 2.4 % (0.0-7.0); Hematocrit 26.1 % (41.0-53.0); Hemoglobin 9.1 g/dL (13.5-17.5); Lymphocytes # (auto) 1.3 10 ^3/uL (0.4-5.4); Lymphocytes % (auto) 8.4 % (10.0-50.0); Mean Corpuscular Hemoglobin 29.7 pg (28.0-32.0); Mean Corpuscular Hgb Conc. 34.9 g/dL (32.0-36.0); Monocytes # (auto) 0.8 10 ^3/uL (0-1.3); Monocytes % (auto) 5.1 % (0.0-12.0); Neutrophils # (auto) 13.2 10 ^3/uL (1.6-8.6); Neutrophils % (auto) 83.8 % (37.0-80.0); Platelet Count (auto) 394 10^3/uL (140-450); Red Blood Cells 3.07 10^6/uL (4.5-5.90); Red Cell Distribution Width 15.3 % (11.8-14.3); White Blood Cell 15.7 10^3/uL (4.4-10.8)
--- NOTE | 2024-09-04 04:57 | DVH ---
CHEST RADIOGRAPH Indication: dobhoff placement, reinsertion Technique: Single frontal view of the chest was obtained COMPARISON: XY CHEST PORTABLE on DOS: 09/04/24, XY CHEST PORTABLE on DOS: 09/03/24, XY CHEST PORTABLE on DOS: 09/03/24, XY CHEST XRAY 1 VIEW on DOS: 09/03/24, XY CHEST XRAY 1 VIEW on DOS: 09/02/24 FINDINGS: Lines and Tubes: Endotracheal tube in satisfactory position. Enteric catheter extends below the left hemidiaphragm with the tip out of the field of view. Lungs: Multifocal airspace disease. Pleura: No effusion. No pneumothorax. Cardiomediastinal contours: Unremarkable Bones: Unremarkable IMPRESSION: Enteric catheter tube tip below the left hemidiaphragm with the tip out of the field of view.
[2024-09-04 04:59] LABS: Alanine Aminotransferase 25 U/L (7-40); Calcium 9.4 mg/dL (8.7-10.4); Carbon Dioxide 26 mmol/L (20-31)
[2024-09-04 05:00] LABS: Albumin 3.3 g/dL (3.2-4.8); Anion Gap 15 (5-15); Aspartate Aminotransferase 29 U/L (13-40); Phosphorus 4.8 mg/dL (2.4-5.1); Total Protein 7.7 g/dL (5.7-8.2)
[2024-09-04 05:04] LABS: Potassium 3.5 mmol/L (3.5-5.1); Sodium 138 mmol/L (136-145)
[2024-09-04 05:05] LABS: Alkaline Phosphatase 590 U/L (46-116); Bilirubin, Total 0.3 mg/dL (0.2-1.0); Blood Urea Nitrogen 89 mg/dL (9-23); Chloride 97 mmol/L (98-107); Glucose 145 mg/dL (74-106)
[2024-09-04 08:23] LABS: Base Excess -0.2 mmol/L (-2.0-3.0)
--- NOTE | 2024-09-04 09:47 | DVHPNRES ---
Progress Note Date Seen: September 04, 2024 Resident Creating Document: MARGARITO CALDERACLAYTONAMANDA RESIDENT Has the PT tested + for MRSA If YES, has PT been informed?: No Medical Necessity Reason Pt with a Central, PICC or Fol: Yes The following are medically ne: Central Line, Chavez Catheter Reason for chavez catheter: Strict I&O Subjective Review of Systems Patient was a 44-year-old male with a past medical history of diabetes presented to the ER with a chief complaint of intractable vomitings and altered level of consciousness. According to the sister patient has been vomiting persistently for 7-10 days before coming to the hospital. She reports that he took a shot of Ozempic before the vomiting started. While in the ER patient was altered likely from underlying sepsis and hyperosmolar hyperglycemic state and was not able to protect his airways following which it was decided to intubate him and put him on mechanical ventilation. Before intubation when he was laid flat, had vomiting coffee-ground and aspirated. After intubation patient underwent bronchoscopy with removal of mucus plugs from left upper and left lower lung. Patient likely developed aspiration pneumonia with likely ARDS( CVP less than 8) and he continues to be on mechanical ventilation with peep of 8, FiO2 30% and most recent sputum cultures done on 08/31 grew presumptive Angelique albicans, on antibiotics meropenem, linezolid, micafungin. Patient was initially in septic shock but was weaned off vasopressors on 09/02 and is maintaining blood pressure. ECHO was done which showed LVEF less than 40%, but no reported history of heart failure or ME. Because of the intractable vomitings before coming to the hospital patient developed KATE (on CKD likely due to diabetes) and had to be put on hemodialysis which are continuing currently but over the last 4 days patient has been making urine while on Lasix 80 mg daily and kidney function has been improving with improvement in the BUN and creatinine and Metabolic alkalosis from the intractable vomitings resolved (nephrology is on board). Patient till Monday 09/04 has not had a bowel movement, bowel sounds are present and CT abdomen with p.o. contrast showed no obstruction following which a Dobbhoff tube was placed into the duodenum on 09/04 and patient was started on trickle feeding and TPN to be weaned of per protocol. From the gastrointestinal, patient did have 2-3 episodes were coffee-ground fluid was aspirated from the NG tube and his hemoglobin went down but he is on Protonix 40 mg b.i.d. and sucralfate, for unit of PRBCs have been given while in the hospital. Patient has a sacral pressure ulcer unstageable and is currently growing Enterococcus faecalis and presumptive Angelique, covered with linezolid and micafungin. Latest blood culture showed growth of Staph epidermidis and Staph hominis both sensitive to linezolid and repeat blood cultures have been ordered. So far the current issues, patient was on ventilator and we are weaning of the sedation. Kidney function continues to improve with the patient getting daily dialysis and 80 mg Lasix and having good urine output Respiratory function respiratory function has been good with patient on minimal vent settings with a PEEP of 8 given likely ARDS, chest x-ray is improving For GI, trickle feeding started with a Dobbhoff tube, TPN will be weaned off per protocol. H&H currently stable Wound care on board for the sacral ulcer Past medical history: Diabetes Past surgical history: Left foot surgery Social history: Smokes 1 pack of cigarettes per day, denied alcohol or any other drug use Home medications: ?? Review of systems Patient seen and examined at the bedside Sedated and on mechanical ventilation Urine output 1700ml overnight and good urine output noted in the morning Abdomen soft, bowel sounds heard but no bowel movement, dobhoff tube placed and trickle feeding started, TPN to be weaned off per protocol Objective vital signs Vital Sign Date Time Temp Pulse Resp B/P (MAP) Pulse Ox O2 Delivery O2 Flow Rate FiO2 09/04/24 09:38 24 98 Mechanical Ventilator+ 30 30 09/04/24 09:30 99.0 95 152/77 (102) 99.0 Total Intake and Output 09/03/24 09/03/24 09/04/24 15:00 23:00 07:00 Intake Total 1041.024 ml 1694.024 ml 1258.752 ml Output Total 1300 ml 2000 ml Balance 1041.024 ml 394.024 ml -741.248 ml medications Current Medications Medications Dose Ordered Sig/Nikki Route Start Time Stop Time Status Last Admin Dose Admin Diagnostic Test (Pha) 1 strip ACHS 08/19/24 17:00 Cancel Norepinephrine Bitartrate 250 ml @ 3.75 mls/hr Q24H IV 08/19/24 17:15 Cancel Midazolam HCl 50 ml @ 1 mls/hr Q24H IV 08/19/24 17:15 09/04/24 05:37 5 MLS/HR Ipratropium [place] 0.5 mg Q6HR NEB 08/19/24 18:00 09/04/24 05:58 0.5 MG Albuterol 2.5 mg Q6HR NEB 08/19/24 18:00 09/04/24 05:58 2.5 MG Pantoprazole Sodium 40 mg BID IV 08/20/24 22:00 09/04/24 08:05 40 MG Acetaminophen 650 mg Q6HP PRN MS 08/21/24 01:45 08/23/24 03:36 650 MG Sucralfate 1 gm QID@0600,1130,1700,2200 GT 08/21/24 11:30 09/04/24 05:25 1 GM Amino Acids 0 ml @ 0 mls/hr PER PHARMACY IV 08/24/24 09:00 Meropenem 50 ml @ 17 mls/hr DAILY IV 08/24/24 10:00 09/04/24 08:07 17 MLS/HR Epoetin Aquilino-epbx 10,000 unit TUTHSA@2100 SC 08/26/24 21:00 09/03/24 21:15 10,000 UNIT Albumin Human 100 ml @ 100 mls/hr PRN PRN IV 08/26/24 06:45 08/27/24 07:45 100 MLS/HR Propofol 100 ml @ 3.804 mls/ hr Q24H IV 08/27/24 04:30 09/04/24 05:37 22.824 MLS/HR Norepinephrine Bitartrate 32 mg/ Sodium Chloride 250 ml @ 0.469 mls/ hr Q24H IV 08/27/24 13:00 08/31/24 13:00 0.938 MLS/HR Fentanyl Citrate 250 ml @ 2.5 mls/hr Q24H IV 08/30/24 20:00 09/04/24 05:34 22.5 MLS/HR Micafungin Sodium 100 mg/Sodium Chloride 100 ml @ 100 mls/hr DAILY@0900 IV 09/01/24 09:00 09/04/24 08:06 100 MLS/HR Metoclopramide HCl 10 mg Q8HR IV 08/31/24 22:00 09/04/24 05:25 10 MG Linezolid 300 ml @ 150 mls/hr Q12HR IV 08/31/24 22:00 09/04/24 08:08 150 MLS/HR Heparin Sodium (Porcine) 5,000 units Q12HR SC 08/31/24 22:00 Hold 09/02/24 22:12 5,000 UNITS Sodium Chloride 10 ml QSHIFT@10,22 IV 08/31/24 22:00 09/04/24 08:07 10 ML Artificial Tears 2 drop Q4HR PRN EACHEYE 09/02/24 10:45 Lactulose 30 ml Q8HR PO 09/03/24 14:00 09/04/24 05:25 30 ML Sodium Chloride 90 meq/Sodium Acetate 60 meq/ Potassium Acetate 10 meq/Magnesium Sulfate 6 meq/ Multivitamins 10 ml/Chromium/ Copper/Manganese/ Zinc 1 ml/Insulin Human Regular 26 units/Amino Acids/ Dextrose 1,720.26 ml @ 71 mls/hr [id number] IV 09/03/24 22:00 09/04/24 21:59 09/03/24 22:16 71 MLS/HR Enteral Nutritional Formula 1,000 ml 15ML/HR GT 09/03/24 17:30 Diagnostic Test (Pha) 1 strip IQ4HR 09/04/24 00:00 09/04/24 08:04 1 STRIP Insulin Human Regular IQ4HR SC 09/04/24 00:00 09/04/24 08:05 2 UNITS Dextrose 50 ml UD PRN IV 09/03/24 21:00 Hydralazine HCl 10 mg Q6HP PRN IV 09/03/24 21:00 Examination Constitutional: Patient sedated and on mechanical ventilation, RASS -4 Gen - mild conjuctival pallor, no icterus, no cyanosis, no clubbing, no LAD, 1+ edema in the feet . Skin - Patients skin is warm and dry. HEENT - normocephalic, atraumatic, moist mucous membranes. Neck - full ROM, no LAD, no jvd Pulmonary - B/L air entry present, improved rales, no wheezing, no stridor. cardiovascular - regular S1,S2 heard, no added sounds, no murmurs heard. GI - soft abdomen. no hepatospleenomegaly. bowel sounds hypoactive sacrum- 10.5X8.5 cm black eschar Neurological - patient was sedated and on mechanical ventilation. Gag reflex present, pupils equal and reactive laboratory and microbiology Laboratory Tests 09/04/24 03:35 Test 09/04/24 03:35 Range/Units Serum Glucose 145 H 74-106 mg/dL Microbiology Date/Time Source Procedure Growth Status 08/31/24 18:46 Sacrum Gram Stain - Final Resulted 08/31/24 18:46 Wound Culture - Preliminary Enterococcus faecalis Resulted 08/31/24 15:22 Blood Blood Culture - Preliminary NO GROWTH AFTER 72 HOURS OF INCUBATION. Resulted 08/31/24 15:08 Sputum Gram Stain - Final Complete 08/31/24 15:08 Respiratory Culture - Final Presumptive Angelique albicans Complete 08/31/24 14:00 Urine - [place] Urine Culture - Final Complete Problem List/Assessment/Plan Problem List/Assessment/Plan Neurology Acute metabolic encephalopathy likely due to sepsis/HHS - on mechanical ventilation Respiratory Acute hypoxic respiratory failure Probable aspiration pneumonia ARDS - on mechanical ventilation with FiO2 30%, peep 8 - chest x-ray shows bilateral patchy opacities - ABG compensated - duonebs q6hr - IV antibiotics meropenem, linezolid, micafungin - sputum culture showed growth angelique Cardiovascular Shock due to sepsis possibly from aspiration Acute on chronic heart failure with reduced ejection fraction - echo showed LVEF< 40% - off norepinephrine Infectious disease Septic shock likely due to aspiration pneumonia Infected Sacral ulcer, unstageable pressure ulcer - on IV antibiotics - culture from sacral ulcer growing enterococcus and angelique - blood culture growing S epidermidis and staph hominis - on linezolid Nephrology Metabolic alkalosis likely from intractable vomiting, resolved KATE on CKD likely due to be VMN from dehydration - on hemodialysis - urine output improved - lasix 80mg daily - nephrology on board GI ?Gastroparesis ?Upper GI bleed - no bowel movements since with the patient in the hospital - KUB shows nonobstructive bowel gas pattern - on metoclopramide - Protonix b.i.d., sucralfate q.i.d. - 4 units of PRBC given, H&H stable - GI on board - CT with PO contrast showed no obstruction, started on tricke feed with dobhoff tube, TPN to be weaned off per protocol - lactulose q8hr Endocrinology Uncontrolled diabetes mellitus with a hyperglycemia Morbid obesity - on insulin sliding scale - lantus, held because of starting feeding through the Dobhoff tube diet: dobhoff tube DVT prophylaxis: on heparin , SCD Left upper arm PICC placed on 08/31 Right femoral dialysis catheter placed on 08/24 Chavez's catheter Goals of care discussed with the patient's sister Sheree for over 27 mins. Full code Critical care time spent excluding procedures: 51 minutes Plan discussed with Dr. Ochoa Plan discussed with: Other (Sister ( Sheree ), RN ( Sofia )) My Orders My Orders Orders - QUINTIN CALDERA RESIDENT Procedure Category Date Status Time Lactulose Oral PHA 09/03/24 In Process 14:00 Nutritional PHA 09/03/24 In Process Supplements (Pivot 17:30 Glucose Blood PHA 09/04/24 In Process (Accu-Chek Comfort 00:00 Insulin R (Human) PHA 09/04/24 In Process (Insulin R) 00:00 Dextrose 50% Syringe PHA 09/03/24 In Process 21:00 Abg W/ Co-Ox RT 09/04/24 Logged 04:00 Hydralazine Injection PHA 09/03/24 In Process (Apresoline Inject 21:00 Chest Portable XY 09/03/24 Resulted 21:15 Kub Abdomen Single XY 09/04/24 Taken View 08:57 Chest Portable XY 09/04/24 Taken 08:57 Blood Culture MIRLANDE 09/04/24 Logged 09:01 Dietary Evaluation Review Recommendations by RD: Protein Supplementation, PPN/TPN Comments: Pt is at high risk of malnutrition due to prolonged vomiting leading to inadequate nutrient intake and hypermetabolic state secondary to acute inflammation. Recommendation: 1) Start PN/TPN per pharmacy 2) If GI is accessible, consider TF Pivot 1.5Cal @ 60ml/hr along with Pro-stat 1 pk TID. Start @ 10ml/hr, increase 10ml/hr Q4H until goal rate is reached. Advance TF rate slowly and gradually to prevent Refeeding syndrome. Water Flush 50ml Q4H if allowed. TF Provision --- TF at goal volume to provide 1440 ml total volume, 2160 kcal (+300 kcal via Pro-stat = 2460 kcal), 135 gm pro (+45 gm via ProStat = 180 gm), 1093 ml H20 (meets 100% est. kcal needs, 100% est. protein needs) 3) Monitor Potassium, Phosphate, Magnesium for Refeeding syndrome 4) Des 1 pk daily For DTI 5) Continue current plan of care Expected Outcomes/Goals: Blood glucose to improve Nutrient intake to meet at least 75% estimated needs FU 2-3 days Food and Nutrition Intake (Mod: <75% est energy req 7days Protein Calorie Malnutrition: Severe QUINTIN CALDERA RESIDENT September 04, 2024 09:47
--- NOTE | 2024-09-04 09:59 | DVHPN2 ---
Progress Note Date Seen: September 04, 2024 Resident Creating Document: RUBY PINEDA RESIDENT Has the PT tested + for MRSA If YES, has PT been informed?: No Medical Necessity Reason Pt with a Central, PICC or Fol: Yes The following are medically ne: Central Line, Chavez Catheter Reason for chavez catheter: Strict I&O Subjective Review of Systems Patient seen and examined at the bedside. Unable to obtain ROS due to patient clinical status. Patient is currently intubated and mechanically ventilated. Start tube feedings if tolerates. No bowel movement. Objective vital signs Vital Sign Date Time Temp Pulse Resp B/P (MAP) Pulse Ox O2 Delivery O2 Flow Rate FiO2 09/04/24 09:38 24 98 Mechanical Ventilator+ 30 30 09/04/24 09:30 99.0 95 152/77 (102) 99.0 Total Intake and Output 09/03/24 09/03/24 09/04/24 14:59 22:59 06:59 Intake Total 1041.024 ml 1543.024 ml 1418.556 ml Output Total 1300 ml 2000 ml Balance 1041.024 ml 243.024 ml -581.444 ml medications Current Medications Medications Dose Ordered Sig/Nikki Route Start Time Stop Time Status Last Admin Dose Admin Diagnostic Test (Pha) 1 strip ACHS 08/19/24 17:00 Cancel Norepinephrine Bitartrate 250 ml @ 3.75 mls/hr Q24H IV 08/19/24 17:15 Cancel Midazolam HCl 50 ml @ 1 mls/hr Q24H IV 08/19/24 17:15 09/04/24 05:37 5 MLS/HR Ipratropium [place] 0.5 mg Q6HR NEB 08/19/24 18:00 09/04/24 05:58 0.5 MG Albuterol 2.5 mg Q6HR NEB 08/19/24 18:00 09/04/24 05:58 2.5 MG Pantoprazole Sodium 40 mg BID IV 08/20/24 22:00 09/04/24 08:05 40 MG Acetaminophen 650 mg Q6HP PRN DE 08/21/24 01:45 08/23/24 03:36 650 MG Sucralfate 1 gm QID@0600,1130,1700,2200 GT 08/21/24 11:30 09/04/24 05:25 1 GM Amino Acids 0 ml @ 0 mls/hr PER PHARMACY IV 08/24/24 09:00 Meropenem 50 ml @ 17 mls/hr DAILY IV 08/24/24 10:00 09/04/24 08:07 17 MLS/HR Epoetin Aquilino-epbx 10,000 unit TUTHSA@2100 SC 08/26/24 21:00 09/03/24 21:15 10,000 UNIT Albumin Human 100 ml @ 100 mls/hr PRN PRN IV 08/26/24 06:45 08/27/24 07:45 100 MLS/HR Propofol 100 ml @ 3.804 mls/ hr Q24H IV 08/27/24 04:30 09/04/24 05:37 22.824 MLS/HR Norepinephrine Bitartrate 32 mg/ Sodium Chloride 250 ml @ 0.469 mls/ hr Q24H IV 08/27/24 13:00 08/31/24 13:00 0.938 MLS/HR Fentanyl Citrate 250 ml @ 2.5 mls/hr Q24H IV 08/30/24 20:00 09/04/24 05:34 22.5 MLS/HR Micafungin Sodium 100 mg/Sodium Chloride 100 ml @ 100 mls/hr DAILY@0900 IV 09/01/24 09:00 09/04/24 08:06 100 MLS/HR Metoclopramide HCl 10 mg Q8HR IV 08/31/24 22:00 09/04/24 05:25 10 MG Linezolid 300 ml @ 150 mls/hr Q12HR IV 08/31/24 22:00 09/04/24 08:08 150 MLS/HR Heparin Sodium (Porcine) 5,000 units Q12HR SC 08/31/24 22:00 Hold 09/02/24 22:12 5,000 UNITS Sodium Chloride 10 ml QSHIFT@10,22 IV 08/31/24 22:00 09/04/24 08:07 10 ML Artificial Tears 2 drop Q4HR PRN EACHEYE 09/02/24 10:45 Lactulose 30 ml Q8HR PO 09/03/24 14:00 09/04/24 05:25 30 ML Sodium Chloride 90 meq/Sodium Acetate 60 meq/ Potassium Acetate 10 meq/Magnesium Sulfate 6 meq/ Multivitamins 10 ml/Chromium/ Copper/Manganese/ Zinc 1 ml/Insulin Human Regular 26 units/Amino Acids/ Dextrose 1,720.26 ml @ 71 mls/hr [id number] IV 09/03/24 22:00 09/04/24 21:59 09/03/24 22:16 71 MLS/HR Enteral Nutritional Formula 1,000 ml 15ML/HR GT 09/03/24 17:30 Diagnostic Test (Pha) 1 strip IQ4HR 09/04/24 00:00 09/04/24 08:04 1 STRIP Insulin Human Regular IQ4HR SC 09/04/24 00:00 09/04/24 08:05 2 UNITS Dextrose 50 ml UD PRN IV 09/03/24 21:00 Hydralazine HCl 10 mg Q6HP PRN IV 09/03/24 21:00 Examination General: Mechanically ventilated, sedated HEENT: Head is normocephalic and atraumatic. Pupils are equal, round, and reactive to light Neck: Supple with no cervical lymphadenopathy. Heart: Regular rate without murmur, rub, or gallop. Lungs: Bilateral crackles, most prominent on bases Abdomen: No external sign of injury. Bowel sounds present t.. Abdomen is soft, nontender. Extremities: faint peripheral pulses. There is no clubbing, no cyanosis, and no edema. Skin: No rash. laboratory and microbiology Laboratory Tests 09/04/24 03:35 Test 09/04/24 03:35 Range/Units Serum Glucose 145 H 74-106 mg/dL Microbiology Date/Time Source Procedure Growth Status 08/31/24 18:46 Sacrum Gram Stain - Final Resulted 08/31/24 18:46 Wound Culture - Preliminary Enterococcus faecalis Resulted 08/31/24 15:22 Blood Blood Culture - Preliminary NO GROWTH AFTER 72 HOURS OF INCUBATION. Resulted 08/31/24 15:08 Sputum Gram Stain - Final Complete 08/31/24 15:08 Respiratory Culture - Final Presumptive Mary albicans Complete 08/31/24 14:00 Urine - [place] Urine Culture - Final Complete Labs and/or images reviewed: Labs reviewed by me, Image(s) reviewed by me Problem List/Assessment/Plan Problem List/Assessment/Plan GI bleed possible gastritis esophagitis Gastric obstruction vs Ileus vs gastroparesis Acute metabolic/toxic encephalopathy Acute hypoxic respiratory failure due to aspiration Septic shock due to aspiration pneumonia Elevated liver enzymes in the setting of septic shock Acute kidney injury in the setting of hypotension and volume depletion Plan Transfuse PRBC if Hb <7 Hold blood thinners Lactulose 30 mL b.i.d. Start tube feedings 20 mL/hour Protonix 40 mg b.i.d. We will recommend small bowel series with a Gastrografin Monitor CBC NG tube with intermittent suction Continue hemodialysis Continue ventilator management Rest of the management as per ICU team Thank you so much for the opportunity to consult on your patient. GI team will follow the patient Case an action plan discussed with Dr. Linda Brennan. Complex care planning needed total 49 minutes of detailed discussion. Plan discussed with: Other (RN) Dietary Evaluation Review Recommendations by RD: Protein Supplementation, PPN/TPN Comments: Pt is at high risk of malnutrition due to prolonged vomiting leading to inadequate nutrient intake and hypermetabolic state secondary to acute inflammation. Recommendation: 1) Start PN/TPN per pharmacy 2) If GI is accessible, consider TF Pivot 1.5Cal @ 60ml/hr along with Pro-stat 1 pk TID. Start @ 10ml/hr, increase 10ml/hr Q4H until goal rate is reached. Advance TF rate slowly and gradually to prevent Refeeding syndrome. Water Flush 50ml Q4H if allowed. TF Provision --- TF at goal volume to provide 1440 ml total volume, 2160 kcal (+300 kcal via Pro-stat = 2460 kcal), 135 gm pro (+45 gm via ProStat = 180 gm), 1093 ml H20 (meets 100% est. kcal needs, 100% est. protein needs) 3) Monitor Potassium, Phosphate, Magnesium for Refeeding syndrome 4) Des 1 pk daily For DTI 5) Continue current plan of care Expected Outcomes/Goals: Blood glucose to improve Nutrient intake to meet at least 75% estimated needs FU 2-3 days Food and Nutrition Intake (Mod: <75% est energy req 7days Protein Calorie Malnutrition: Severe RUBY PINEDA RESIDENT September 04, 2024 09:59
--- NOTE | 2024-09-04 10:33 | DVH ---
EXAM: XY CHEST PORTABLE Indication: DOBB TOMASA PLACEMENT Technique: Single frontal view of the chest was obtained Comparison: XY CHEST PORTABLE on DOS: 09/04/24, XY CHEST PORTABLE on DOS: 09/04/24, XY CHEST PORTABLE on DOS: 09/03/24, XY CHEST PORTABLE on DOS: 09/03/24, XY CHEST XRAY 1 VIEW on DOS: 09/03/24 FINDINGS: Lines and Tubes: Endotracheal tube projects 5.7 cm above the jasbir. Enteric tube tip projects over t he expected region the stomach. Lungs: Multifocal airspace opacities. Pleura: No effusion. No pneumothorax. Cardiomediastinal contours: Unremarkable Bones: No acute osseous abnormality. IMPRESSION: Multifocal pneumonia.
--- NOTE | 2024-09-04 10:34 | DVH ---
Date: 09/04/2024 09:00 AM Examination: XY KUB ABDOMEN SINGLE VIEW History: TOMASA PLACEMENT Comparison: XY KUB ABDOMEN SINGLE VIEW on DOS: 08/31/24, XY KUB ABDOMEN SINGLE VIEW on DOS: 08/29/24, X Y KUB ABDOMEN SINGLE VIEW on DOS: 08/26/24 TECHNIQUE: Frontal views of the abdomen was obtained. FINDINGS: Bowel gas pattern is unremarkable. Weighted tip feeding tube projects over the expected region of the proximal duodenum. Contrast is visualized in the colon. The lung bases are unremarkable. No acute osseous abnormality identified. IMPRESSION: Weighted tip feeding tube projects over the expected region of the proximal duodenum. Contrast is vis ualized in the colon.
--- NOTE | 2024-09-04 11:20 | DVHPN2 ---
Progress Note Date Seen: September 04, 2024 Has the PT tested + for MRSA If YES, has PT been informed?: No Medical Necessity Reason Pt with a Central, PICC or Fol: Yes The following are medically ne: Central Line, Chavez Catheter Reason for chavez catheter: Strict I&O Subjective Patient reports: Other (intubated) Review of Systems: Deferred Objective vital signs Vital Sign Date Time Temp Pulse Resp B/P (MAP) Pulse Ox O2 Delivery O2 Flow Rate FiO2 09/04/24 10:14 85 09/04/24 10:07 30 160/75 (103) 97 30 09/04/24 09:38 Mechanical Ventilator+ 09/04/24 09:30 99.0 99.0 Total Intake and Output 09/03/24 09/03/24 09/04/24 15:00 23:00 07:00 Intake Total 1041.024 ml 1694.024 ml 1258.752 ml Output Total 1300 ml 2000 ml Balance 1041.024 ml 394.024 ml -741.248 ml medications Current Medications Medications Dose Ordered Sig/Nikki Route Start Time Stop Time Status Last Admin Dose Admin Diagnostic Test (Pha) 1 strip ACHS 08/19/24 17:00 Cancel Norepinephrine Bitartrate 250 ml @ 3.75 mls/hr Q24H IV 08/19/24 17:15 Cancel Midazolam HCl 50 ml @ 1 mls/hr Q24H IV 08/19/24 17:15 09/04/24 05:37 5 MLS/HR Ipratropium [place] 0.5 mg Q6HR NEB 08/19/24 18:00 09/04/24 05:58 0.5 MG Albuterol 2.5 mg Q6HR NEB 08/19/24 18:00 09/04/24 05:58 2.5 MG Pantoprazole Sodium 40 mg BID IV 08/20/24 22:00 09/04/24 08:05 40 MG Acetaminophen 650 mg Q6HP PRN [place] 08/21/24 01:45 08/23/24 03:36 650 MG Sucralfate 1 gm QID@0600,1130,1700,2200 GT 08/21/24 11:30 09/04/24 11:11 1 GM Amino Acids 0 ml @ 0 mls/hr PER PHARMACY IV 08/24/24 09:00 Meropenem 50 ml @ 17 mls/hr DAILY IV 08/24/24 10:00 09/04/24 08:07 17 MLS/HR Epoetin Aquilino-epbx 10,000 unit TUTHSA@2100 SC 08/26/24 21:00 09/03/24 21:15 10,000 UNIT Albumin Human 100 ml @ 100 mls/hr PRN PRN IV 08/26/24 06:45 08/27/24 07:45 100 MLS/HR Propofol 100 ml @ 3.804 mls/ hr Q24H IV 08/27/24 04:30 09/04/24 11:08 30.432 MLS/HR Norepinephrine Bitartrate 32 mg/ Sodium Chloride 250 ml @ 0.469 mls/ hr Q24H IV 08/27/24 13:00 08/31/24 13:00 0.938 MLS/HR Fentanyl Citrate 250 ml @ 2.5 mls/hr Q24H IV 08/30/24 20:00 09/04/24 05:34 22.5 MLS/HR Micafungin Sodium 100 mg/Sodium Chloride 100 ml @ 100 mls/hr DAILY@0900 IV 09/01/24 09:00 09/04/24 08:06 100 MLS/HR Metoclopramide HCl 10 mg Q8HR IV 08/31/24 22:00 09/04/24 05:25 10 MG Linezolid 300 ml @ 150 mls/hr Q12HR IV 08/31/24 22:00 09/04/24 08:08 150 MLS/HR Heparin Sodium (Porcine) 5,000 units Q12HR SC 08/31/24 22:00 Hold 09/02/24 22:12 5,000 UNITS Sodium Chloride 10 ml QSHIFT@10,22 IV 08/31/24 22:00 09/04/24 08:07 10 ML Artificial Tears 2 drop Q4HR PRN EACHEYE 09/02/24 10:45 Lactulose 30 ml Q8HR PO 09/03/24 14:00 09/04/24 05:25 30 ML Sodium Chloride 90 meq/Sodium Acetate 60 meq/ Potassium Acetate 10 meq/Magnesium Sulfate 6 meq/ Multivitamins 10 ml/Chromium/ Copper/Manganese/ Zinc 1 ml/Insulin Human Regular 26 units/Amino Acids/ Dextrose 1,720.26 ml @ 71 mls/hr [id number] IV 09/03/24 22:00 09/04/24 21:59 09/03/24 22:16 71 MLS/HR Enteral Nutritional Formula 1,000 ml 15ML/HR GT 09/03/24 17:30 Diagnostic Test (Pha) 1 strip IQ4HR 09/04/24 00:00 09/04/24 11:11 1 STRIP Insulin Human Regular IQ4HR SC 09/04/24 00:00 09/04/24 08:05 2 UNITS Dextrose 50 ml UD PRN IV 09/03/24 21:00 Hydralazine HCl 10 mg Q6HP PRN IV 09/03/24 21:00 Examination: GENERAL:Abnormal, LUNGS:Abnormal, MSK:Abnormal, NEURO:Abnormal laboratory and microbiology Laboratory Tests 09/04/24 03:35 Test 09/04/24 03:35 Range/Units Serum Glucose 145 H 74-106 mg/dL Microbiology Date/Time Source Procedure Growth Status 08/31/24 18:46 Sacrum Gram Stain - Final Resulted 08/31/24 18:46 Wound Culture - Preliminary Enterococcus faecalis Resulted 08/31/24 15:22 Blood Blood Culture - Preliminary NO GROWTH AFTER 72 HOURS OF INCUBATION. Resulted 08/31/24 15:08 Sputum Gram Stain - Final Complete 08/31/24 15:08 Respiratory Culture - Final Presumptive Mary albicans Complete 08/31/24 14:00 Urine - Chavez Port Urine Culture - Final Complete Problem List/Assessment/Plan Problem List/Assessment/Plan Acute kidney injury in the setting of hypotension and volume depletion -> ATN Uncontrolled diabetes Ventilator-dependent hypoxic acute respiratory failure due to aspiration pneumonia gastric obstruction vs Illeus w/ persistent vomiting carotid artery injury due to temp HD cath s/p vascular surgery repair femoral tunnel HD catheter placed by vascular hyperkalemia Recommendations HD today repeating for solute clearance epogen Plan discussed with: Other Dietary Evaluation Review Recommendations by RD: Protein Supplementation, PPN/TPN Comments: Pt is at high risk of malnutrition due to prolonged vomiting leading to inadequate nutrient intake and hypermetabolic state secondary to acute inflammation. Recommendation: 1) Start PN/TPN per pharmacy 2) If GI is accessible, consider TF Pivot 1.5Cal @ 60ml/hr along with Pro-stat 1 pk TID. Start @ 10ml/hr, increase 10ml/hr Q4H until goal rate is reached. Advance TF rate slowly and gradually to prevent Refeeding syndrome. Water Flush 50ml Q4H if allowed. TF Provision --- TF at goal volume to provide 1440 ml total volume, 2160 kcal (+300 kcal via Pro-stat = 2460 kcal), 135 gm pro (+45 gm via ProStat = 180 gm), 1093 ml H20 (meets 100% est. kcal needs, 100% est. protein needs) 3) Monitor Potassium, Phosphate, Magnesium for Refeeding syndrome 4) Des 1 pk daily For DTI 5) Continue current plan of care Expected Outcomes/Goals: Blood glucose to improve Nutrient intake to meet at least 75% estimated needs FU 2-3 days Food and Nutrition Intake (Mod: <75% est energy req 7days Protein Calorie Malnutrition: Severe KASSANDRA VARGAS MD September 04, 2024 11:20
[2024-09-04] MEDS: TPN PER PHARMACY IV NR (22:17)
[2024-09-04] MEDS: MEROPENEM 500MG IVPB 50 ML IV SCH (23:39)
[2024-09-05] VITALS (113 sets, daily range): BP systolic 91–183; BP diastolic 43–96; PULSE 73–102; RESP 12–29; TEMP 97.5–99.1; O2SAT 94–100
[2024-09-05 04:00] LABS: Basophils # (auto) 0.1 10 ^3/uL (0-0.2); Basophils % (auto) 0.9 % (0.0-2.0); Eosinophils # (auto) 0.3 10 ^3/uL (0-0.8); Eosinophils % (auto) 1.9 % (0.0-7.0); Hematocrit 27.2 % (41.0-53.0); Hemoglobin 9.4 g/dL (13.5-17.5); Lymphocytes # (auto) 1.4 10 ^3/uL (0.4-5.4); Lymphocytes % (auto) 9.4 % (10.0-50.0); Mean Corpuscular Hemoglobin 29.5 pg (28.0-32.0); Mean Corpuscular Hgb Conc. 34.5 g/dL (32.0-36.0); Mean Corpuscular Volume 85.5 fL (80.0-100.0); Monocytes # (auto) 0.9 10 ^3/uL (0-1.3); Monocytes % (auto) 5.8 % (0.0-12.0); Neutrophils # (auto) 12.3 10 ^3/uL (1.6-8.6); Platelet Count (auto) 406 10^3/uL (140-450); Red Blood Cells 3.18 10^6/uL (4.5-5.90); Red Cell Distribution Width 15.1 % (11.8-14.3)
[2024-09-05 04:25] LABS: Alanine Aminotransferase 18 U/L (7-40); Albumin 3.7 g/dL (3.2-4.8); Anion Gap 13 (5-15); Aspartate Aminotransferase 20 U/L (13-40); BUN/Creatinine Ratio 21.6 (10.0-20.0); Bilirubin, Total 0.3 mg/dL (0.2-1.0); Calcium 9.9 mg/dL (8.7-10.4); Carbon Dioxide 27 mmol/L (20-31); Magnesium 1.9 mg/dL (1.6-2.6); Phosphorus 3.8 mg/dL (2.4-5.1); Sodium 137 mmol/L (136-145)
[2024-09-05 04:27] LABS: Alkaline Phosphatase 493 U/L (46-116); Blood Urea Nitrogen 72 mg/dL (9-23); Chloride 97 mmol/L (98-107); Glucose 214 mg/dL (74-106); Potassium 3.4 mmol/L (3.5-5.1); Total Protein 8.3 g/dL (5.7-8.2)
--- NOTE | 2024-09-05 06:15 | DVH ---
CHEST RADIOGRAPH Indication: B/L diffuse opacities, on vent Technique: Single frontal view of the chest was obtained COMPARISON: XY CHEST PORTABLE on DOS: 09/04/24, XY CHEST PORTABLE on DOS: 09/04/24, XY CHEST PORTABLE on DOS: 09/04/24, XY CHEST PORTABLE on DOS: 09/03/24, XY CHEST PORTABLE on DOS: 09/03/24 FINDINGS: Lines and Tubes: Unchanged. Lungs: Stable appearing multifocal bilateral pulmonary airspace disease, predominating within the sung g bases. Pleura: No effusion. No pneumothorax. Cardiomediastinal contours: Unremarkable Bones: Unremarkable IMPRESSION: 1. Stable appearing multifocal bilateral pulmonary airspace disease, predominating within the lung ba ses. 2. Lines and tubes unchanged.
[2024-09-05] MEDS: hydrALAZINE HCL 20 MG/ML VL IV PRN (06:17)
--- NOTE | 2024-09-05 09:03 | MEDREC ---
[facility] ASP Intervention Section I [facility] ASP Intervention: Deescalate AB based on CS (The Final wound culture showed Enterococcus faecalis + Presumptive Mary albicans. The final blood culture showed Staphylococcus epidermidis + Staph hominis subsp homins. The Final Sputum culture showed Presumptive Mary albicans. Please consider discontinuing Meropenem based on culture results) ESTER STRICKLAND September 05, 2024 09:03
[2024-09-05 09:23] LABS: Base Excess 0.5 mmol/L (-2.0-3.0)
--- NOTE | 2024-09-05 11:40 | DVHPN2 ---
Progress Note - Dictate Date Seen: September 05, 2024 Has the PT tested + for MRSA If YES, has PT been informed?: No Medical Necessity Reason Pt with a Central, PICC or Fol: Yes The following are medically ne: Central Line, Chavez Catheter Reason for chavez catheter: Strict I&O vital signs Vital Sign Date Time Temp Pulse Resp B/P (MAP) Pulse Ox O2 Delivery O2 Flow Rate FiO2 09/05/24 10:20 95 09/05/24 10:15 24 109/64 (79) 98 09/05/24 09:51 30 09/05/24 09:37 Mechanical Ventilator+ 09/05/24 09:30 98.6 98.6 Total Intake and Output 09/04/24 09/04/24 09/05/24 15:00 23:00 07:00 Intake Total 1439.612 ml 771.030 ml 1513.588 ml Output Total 700 ml 1650 ml Balance 1439.612 ml 71.030 ml -136.412 ml medications Current Medications Medications Dose Ordered Sig/Nikki Route Start Time Stop Time Status Last Admin Dose Admin Diagnostic Test (Pha) 1 strip ACHS 08/19/24 17:00 Cancel Norepinephrine Bitartrate 250 ml @ 3.75 mls/hr Q24H IV 08/19/24 17:15 Cancel Midazolam HCl 50 ml @ 1 mls/hr Q24H IV 08/19/24 17:15 09/05/24 07:54 6 MLS/HR Ipratropium [place] 0.5 mg Q6HR NEB 08/19/24 18:00 09/05/24 05:52 0.5 MG Albuterol 2.5 mg Q6HR NEB 08/19/24 18:00 09/05/24 05:52 2.5 MG Pantoprazole Sodium 40 mg BID IV 08/20/24 22:00 09/05/24 07:44 40 MG Acetaminophen 650 mg Q6HP PRN [place] 08/21/24 01:45 08/23/24 03:36 650 MG Sucralfate 1 gm QID@0600,1130,1700,2200 GT 08/21/24 11:30 09/05/24 06:05 1 GM Amino Acids 0 ml @ 0 mls/hr PER PHARMACY IV 08/24/24 09:00 Epoetin Aquilino-epbx 10,000 unit TUTHSA@2100 SC 08/26/24 21:00 09/03/24 21:15 10,000 UNIT Albumin Human 100 ml @ 100 mls/hr PRN PRN IV 08/26/24 06:45 08/27/24 07:45 100 MLS/HR Propofol 100 ml @ 3.804 mls/ hr Q24H IV 08/27/24 04:30 09/05/24 06:16 22.824 MLS/HR Norepinephrine Bitartrate 32 mg/ Sodium Chloride 250 ml @ 0.469 mls/ hr Q24H IV 08/27/24 13:00 08/31/24 13:00 0.938 MLS/HR Fentanyl Citrate 250 ml @ 2.5 mls/hr Q24H IV 08/30/24 20:00 09/05/24 04:47 17.5 MLS/HR Micafungin Sodium 100 mg/Sodium Chloride 100 ml @ 100 mls/hr DAILY@0900 IV 09/01/24 09:00 09/05/24 07:44 100 MLS/HR Metoclopramide HCl 10 mg Q8HR IV 08/31/24 22:00 09/05/24 06:04 10 MG Linezolid 300 ml @ 150 mls/hr Q12HR IV 08/31/24 22:00 09/05/24 07:44 150 MLS/HR Heparin Sodium (Porcine) 5,000 units Q12HR SC 08/31/24 22:00 09/02/24 22:12 5,000 UNITS Sodium Chloride 10 ml QSHIFT@10,22 IV 08/31/24 22:00 09/05/24 07:44 10 ML Artificial Tears 2 drop Q4HR PRN EACHEYE 09/02/24 10:45 Lactulose 30 ml Q8HR PO 09/03/24 14:00 09/05/24 06:04 30 ML Enteral Nutritional Formula 1,000 ml 15ML/HR GT 09/03/24 17:30 Diagnostic Test (Pha) 1 strip IQ4HR 09/04/24 00:00 09/05/24 11:33 1 STRIP Insulin Human Regular IQ4HR SC 09/04/24 00:00 09/05/24 07:50 6 UNITS Dextrose 50 ml UD PRN IV 09/03/24 21:00 Hydralazine HCl 10 mg Q6HP PRN IV 09/03/24 21:00 09/05/24 06:17 10 MG Sodium Chloride 100 meq/Sodium Acetate 50 meq/ Potassium Chloride 20 meq/ Magnesium Sulfate 8 meq/ Multivitamins 10 ml/Chromium/ Copper/Manganese/ Zinc 1 ml/Insulin Human Regular 20 units/Amino Acids/ Dextrose 1,723.2 ml @ 72 mls/hr [id number] IV 09/04/24 22:00 09/05/24 21:59 09/04/24 22:17 72 MLS/HR Meropenem 50 ml @ 17 mls/hr Q12H IV 09/05/24 00:00 09/05/24 11:34 17 MLS/HR Hydralazine HCl 50 mg Q8HR PRN PO 09/05/24 09:15 laboratory and microbiology Laboratory Tests 09/05/24 03:40 Test 09/05/24 03:40 Range/Units Serum Glucose 214 H 74-106 mg/dL Assessment/Plan Impression: Acute hypoxic respiratory failure On mechanical ventilator Gastrointestinal hemorrhage, upper Aspiration pneumonia MAGDALENA mucous plug Obesity BMI 35.9 Patient seen and examined in ICU Events: On mechanical ventilation s/p intubation peep 8, FiO2 30% patient making stool Labs and imaging reviewed BUN/Creatinine elevated Followed by nephrology ABG reviewed Management Vent support Daily ABG and CXR while intubated Sedation holiday in AM If patient follows commands, proceed to weaning trial Pressure support 11/07, extubate when ready HD per Nephrology Monitor renal function Monitor electrolytes. Supplement as necessary. Continue bronchodilators/Mucomyst Continue antibiotics. Continue antifungals Follow up cultures TPN for nutritional support Accu-Cheks, ISS Continue bronchodilators. Continue antibiotics. Pressors as necessary for hemodynamic support Titrate to keep mean arterial pressure greater than 65 mmHg. Monitor hemoglobin GI recs appreciated DVT prophylaxis - Lovenox. Critical care time 35 minutes Dietary Evaluation Review Recommendations by RD: Protein Supplementation, PPN/TPN Comments: Pt is at high risk of malnutrition due to prolonged vomiting leading to inadequate nutrient intake and hypermetabolic state secondary to acute inflammation. Recommendation: 1) Start PN/TPN per pharmacy 2) If GI is accessible, consider TF Pivot 1.5Cal @ 60ml/hr along with Pro-stat 1 pk TID. Start @ 10ml/hr, increase 10ml/hr Q4H until goal rate is reached. Advance TF rate slowly and gradually to prevent Refeeding syndrome. Water Flush 50ml Q4H if allowed. TF Provision --- TF at goal volume to provide 1440 ml total volume, 2160 kcal (+300 kcal via Pro-stat = 2460 kcal), 135 gm pro (+45 gm via ProStat = 180 gm), 1093 ml H20 (meets 100% est. kcal needs, 100% est. protein needs) 3) Monitor Potassium, Phosphate, Magnesium for Refeeding syndrome 4) Des 1 pk daily For DTI 5) Continue current plan of care Expected Outcomes/Goals: Blood glucose to improve Nutrient intake to meet at least 75% estimated needs FU 2-3 days Food and Nutrition Intake (Mod: <75% est energy req 7days Protein Calorie Malnutrition: Severe Plan discussed with: Other (Rn) REIJ GUIDRY MD September 05, 2024 11:40
--- NOTE | 2024-09-05 15:31 | DVHPN2 ---
Subjective The patient is seen and examined at bedside. The patient remained intubated. No change overnight. Reviewed: Care Plan, H&P, Labs, Medications, Previous Orders, Radiology, Other (Consultations) Changes from previous H/P or p: No Changes Objective Vitals Vital Signs Date Time Temp Pulse Resp B/P (MAP) Pulse Ox O2 Delivery O2 Flow Rate FiO2 09/05/24 15:15 88 24 123/70 (87) 97 09/05/24 14:27 Mechanical Ventilator+ 30 30 09/05/24 11:45 98.6 98.6 Intake/Output Intake and Output 09/05/24 07:00 Intake Total 3724.230 ml Output Total 2350 ml Balance 1374.230 ml Intake Oral 300 ml IV Total 3353.230 ml Tube Feeding 71 ml Output Urine Total 1800 ml Gastric Drainage Total 550 ml # Bowel Movements 1 General Appearance: Other (Intubated and sedated) HEENT: Atraumatic Lungs: Other (Mechanical ventilation sounds) Cardiovascular: Normal S1, Normal S2, Other (Tachycardia) Abdomen: Normal bowel sounds, Soft Genitourinary: Other (Friedman's) Neuro: Other (Intubated and sedated) Psych/Mental Status: Other (Intubated and sedated) Medications Current Medications Medications Dose Ordered Sig/Nikki Route Start Time Stop Time Status Last Admin Dose Admin Diagnostic Test (Pha) 1 strip ACHS 08/19/24 17:00 Cancel Norepinephrine Bitartrate 250 ml @ 3.75 mls/hr Q24H IV 08/19/24 17:15 Cancel Midazolam HCl 50 ml @ 1 mls/hr Q24H IV 08/19/24 17:15 09/05/24 07:54 6 MLS/HR Ipratropium [place] 0.5 mg Q6HR NEB 08/19/24 18:00 09/05/24 11:43 0.5 MG Albuterol 2.5 mg Q6HR NEB 08/19/24 18:00 09/05/24 11:43 2.5 MG Pantoprazole Sodium 40 mg BID IV 08/20/24 22:00 09/05/24 07:44 40 MG Acetaminophen 650 mg Q6HP PRN [place] 08/21/24 01:45 08/23/24 03:36 650 MG Sucralfate 1 gm QID@0600,1130,1700,2200 GT 08/21/24 11:30 09/05/24 11:39 1 GM Amino Acids 0 ml @ 0 mls/hr PER PHARMACY IV 08/24/24 09:00 Epoetin Aquilino-epbx 10,000 unit TUTHSA@2100 HI 08/26/24 21:00 09/03/24 21:15 10,000 UNIT Albumin Human 100 ml @ 100 mls/hr PRN PRN IV 08/26/24 06:45 08/27/24 07:45 100 MLS/HR Propofol 100 ml @ 3.804 mls/ hr Q24H IV 08/27/24 04:30 09/05/24 13:52 22.824 MLS/HR Norepinephrine Bitartrate 32 mg/ Sodium Chloride 250 ml @ 0.469 mls/ hr Q24H IV 08/27/24 13:00 08/31/24 13:00 0.938 MLS/HR Fentanyl Citrate 250 ml @ 2.5 mls/hr Q24H IV 08/30/24 20:00 09/05/24 13:53 25 MLS/HR Micafungin Sodium 100 mg/Sodium Chloride 100 ml @ 100 mls/hr DAILY@0900 IV 09/01/24 09:00 09/05/24 07:44 100 MLS/HR Metoclopramide HCl 10 mg Q8HR IV 08/31/24 22:00 09/05/24 11:39 10 MG Linezolid 300 ml @ 150 mls/hr Q12HR IV 08/31/24 22:00 09/05/24 07:44 150 MLS/HR Heparin Sodium (Porcine) 5,000 units Q12HR SC 08/31/24 22:00 09/02/24 22:12 5,000 UNITS Sodium Chloride 10 ml QSHIFT@10,22 IV 08/31/24 22:00 09/05/24 07:44 10 ML Artificial Tears 2 drop Q4HR PRN EACHEYE 09/02/24 10:45 Lactulose 30 ml Q8HR PO 09/03/24 14:00 09/05/24 11:39 30 ML Enteral Nutritional Formula 1,000 ml 15ML/HR GT 09/03/24 17:30 Diagnostic Test (Pha) 1 strip IQ4HR 09/04/24 00:00 09/05/24 13:53 1 STRIP Insulin Human Regular IQ4HR SC 09/04/24 00:00 09/05/24 11:42 4 UNITS Dextrose 50 ml UD PRN IV 09/03/24 21:00 Hydralazine HCl 10 mg Q6HP PRN IV 09/03/24 21:00 09/05/24 06:17 10 MG Sodium Chloride 100 meq/Sodium Acetate 50 meq/ Potassium Chloride 20 meq/ Magnesium Sulfate 8 meq/ Multivitamins 10 ml/Chromium/ Copper/Manganese/ Zinc 1 ml/Insulin Human Regular 20 units/Amino Acids/ Dextrose 1,723.2 ml @ 72 mls/hr [id number] IV 09/04/24 22:00 09/05/24 21:59 09/04/24 22:17 72 MLS/HR Meropenem 50 ml @ 17 mls/hr Q12H IV 09/05/24 00:00 09/05/24 11:34 17 MLS/HR Hydralazine HCl 50 mg Q8HR PRN PO 09/05/24 09:15 Sodium Chloride 130 meq/Sodium Acetate 20 meq/ Potassium Chloride 20 meq/ Magnesium Sulfate 6 meq/ Multivitamins 10 ml/Chromium/ Copper/Manganese/ Zinc 1 ml/Insulin Human Regular 26 units/Amino Acids/ Dextrose 1,715.26 ml @ 71 mls/hr [id number] IV 09/05/24 22:00 09/06/24 21:59 Laboratory Results Laboratory Tests 09/05/24 03:40 Chemistry Test 09/05/24 03:40 Albumin 3.7 g/dL (3.2-4.8) Calcium Level 9.9 mg/dL (8.7-10.4) Magnesium Level 1.9 mg/dL (1.6-2.6) Phosphorus Level 3.8 mg/dL (2.4-5.1) Total Protein 8.3 g/dL (5.7-8.2) H LFT Test 09/05/24 03:40 Alanine Aminotransferase (ALT) 18 U/L (7-40) Alkaline Phosphatase 493 U/L (46-116) H Aspartate Amino Transferase (AST) 20 U/L (13-40) Total Bilirubin 0.3 mg/dL (0.2-1.0) Urinalysis Test 08/19/24 11:25 Urine Color Colorless (Yellow) Urine Clarity Ex.turbid (Clear) Urine pH 6.5 (5.0-9.0) Urine Specific Joy 1.017 (1.001-1.035) Urine Protein 1+ (Negative) H Urine Ketones Negative (Negative) Urine Blood 1+ /uL (Negative) H Urine Nitrite Negative (Negative) Urine Bilirubin Negative (Negative) Urine Urobilinogen Normal mg/dL (Negative) Urine Leukocyte Esterase Trace /uL (Negative) Urine RBC 5 /hpf (0 - 3) Urine Microscopic WBC 16 /HPF (0-3) H Urine Squamous Epithelial Cells Few /hpf (<5) Urine Renal Epithelial Cells Few /hpf (None Seen) Urine Amorphous Crystals Few /hpf (None Seen) Urine Bacteria Few /hpf (None Seen) H Urine Mucus Few (None Seen) Urine Sperm Present /hpf (None Seen) Urine Creatinine 77.13 mg/dL (30.0-125.0) Urine Sodium 15 mmol/L (40-220) L Urine Glucose 3+ mg/dL (Normal) H Blood Gas Results Test 09/05/24 07:38 Arterial Blood pH 7.450 (7.350-7.450) FiO2 % 30.0 Microbiology Microbiology Date/Time Source Procedure Growth Status 09/04/24 10:19 Blood Blood Culture - Preliminary NO GROWTH AFTER 24 HOURS OF INCUBATION. Resulted 08/31/24 18:46 Sacrum Gram Stain - Final Complete 08/31/24 18:46 Wound Culture - Final Enterococcus faecalis Presumptive Angelique albicans Complete 08/31/24 15:08 Sputum Gram Stain - Final Complete 08/31/24 15:08 Respiratory Culture - Final Presumptive Angelique albicans Complete 08/31/24 14:00 Urine - Friedman Port Urine Culture - Final Complete Labs and/or images reviewed: Labs reviewed by me Assessment/Plan Assessment/Plan Acute metabolic encephalopathy likely due to sepsis/HHS - on mechanical ventilation Respiratory Acute hypoxic respiratory failure Probable aspiration pneumonia ARDS - on mechanical ventilation with FiO2 30%, peep 8 - chest x-ray shows bilateral patchy opacities - ABG compensated - duonebs q6hr - IV antibiotics meropenem, linezolid, micafungin - sputum culture showed growth angelqiue Cardiovascular Shock due to sepsis possibly from aspiration Acute on chronic heart failure with reduced ejection fraction - echo showed LVEF< 40% - off norepinephrine Infectious disease Septic shock likely due to aspiration pneumonia Infected Sacral ulcer, unstageable pressure ulcer - on IV antibiotics - culture from sacral ulcer growing enterococcus and angelique - blood culture growing S epidermidis and staph hominis - on linezolid Nephrology Metabolic alkalosis likely from intractable vomiting, resolved KATE on CKD likely due to be VMN from dehydration - on hemodialysis - urine output improved - lasix 80mg daily - nephrology on board GI ?Gastroparesis ?Upper GI bleed - no bowel movements since with the patient in the hospital - KUB shows nonobstructive bowel gas pattern - on metoclopramide - Protonix b.i.d., sucralfate q.i.d. - 4 units of PRBC given, H&H stable - GI on board - CT with PO contrast showed no obstruction, started on tricke feed with dobhoff tube, TPN to be weaned off per protocol - lactulose q8hr Endocrinology Uncontrolled diabetes mellitus with a hyperglycemia Morbid obesity - on insulin sliding scale - lantus, held because of starting feeding through the Dobhoff tube diet: dobhoff tube DVT prophylaxis: on heparin , SCD Left upper arm PICC placed on 08/31 Right femoral dialysis catheter placed on 08/24 Friedman's catheter The patient is full code This medical document was created using an electronic medical record system with [employer] direct computerized dictation system. Although this document has been carefully reviewed, there may still be some phonetic and typographical errors. These areas are purely typographical due to imperfections of the software programs, and do not reflect any compromise in the patient's medical care. Plan discussed with: Other (RN) Date of Service: September 05, 2024 Billing Provider: SHANI LANDRY MD Common Visit Codes: [id number] INP/OBS CARE(HIGH) SHANI LANDRY MD September 05, 2024 15:31
--- NOTE | 2024-09-05 15:55 | DVHPN2 ---
Progress Note Date Seen: September 05, 2024 Has the PT tested + for MRSA If YES, has PT been informed?: No Medical Necessity Reason Pt with a Central, PICC or Fol: Yes The following are medically ne: Central Line, Chavez Catheter Reason for chavez catheter: Strict I&O Subjective Patient reports: Other (Patient remains intubated) Review of Systems: Deferred Objective vital signs Vital Sign Date Time Temp Pulse Resp B/P (MAP) Pulse Ox O2 Delivery O2 Flow Rate FiO2 09/05/24 15:52 24 98 Mechanical Ventilator+ 30 30 09/05/24 15:33 92 128/75 (92) 09/05/24 11:45 98.6 98.6 Total Intake and Output 09/04/24 09/04/24 09/05/24 15:00 23:00 07:00 Intake Total 1439.612 ml 771.030 ml 1513.588 ml Output Total 700 ml 1650 ml Balance 1439.612 ml 71.030 ml -136.412 ml medications Current Medications Medications Dose Ordered Sig/Nikki Route Start Time Stop Time Status Last Admin Dose Admin Diagnostic Test (Pha) 1 strip ACHS 08/19/24 17:00 Cancel Norepinephrine Bitartrate 250 ml @ 3.75 mls/hr Q24H IV 08/19/24 17:15 Cancel Midazolam HCl 50 ml @ 1 mls/hr Q24H IV 08/19/24 17:15 09/05/24 15:30 6 MLS/HR Ipratropium [place] 0.5 mg Q6HR NEB 08/19/24 18:00 09/05/24 11:43 0.5 MG Albuterol 2.5 mg Q6HR NEB 08/19/24 18:00 09/05/24 11:43 2.5 MG Pantoprazole Sodium 40 mg BID IV 08/20/24 22:00 09/05/24 07:44 40 MG Acetaminophen 650 mg Q6HP PRN [place] 08/21/24 01:45 08/23/24 03:36 650 MG Sucralfate 1 gm QID@0600,1130,1700,2200 GT 08/21/24 11:30 09/05/24 11:39 1 GM Amino Acids 0 ml @ 0 mls/hr PER PHARMACY IV 08/24/24 09:00 Epoetin Aquilino-epbx 10,000 unit TUTHSA@2100 SC 08/26/24 21:00 09/03/24 21:15 10,000 UNIT Albumin Human 100 ml @ 100 mls/hr PRN PRN IV 08/26/24 06:45 08/27/24 07:45 100 MLS/HR Propofol 100 ml @ 3.804 mls/ hr Q24H IV 08/27/24 04:30 09/05/24 13:52 22.824 MLS/HR Norepinephrine Bitartrate 32 mg/ Sodium Chloride 250 ml @ 0.469 mls/ hr Q24H IV 08/27/24 13:00 08/31/24 13:00 0.938 MLS/HR Fentanyl Citrate 250 ml @ 2.5 mls/hr Q24H IV 08/30/24 20:00 09/05/24 13:53 25 MLS/HR Micafungin Sodium 100 mg/Sodium Chloride 100 ml @ 100 mls/hr DAILY@0900 IV 09/01/24 09:00 09/05/24 07:44 100 MLS/HR Metoclopramide HCl 10 mg Q8HR IV 08/31/24 22:00 09/05/24 11:39 10 MG Linezolid 300 ml @ 150 mls/hr Q12HR IV 08/31/24 22:00 09/05/24 07:44 150 MLS/HR Heparin Sodium (Porcine) 5,000 units Q12HR SC 08/31/24 22:00 09/02/24 22:12 5,000 UNITS Sodium Chloride 10 ml QSHIFT@10,22 IV 08/31/24 22:00 09/05/24 07:44 10 ML Artificial Tears 2 drop Q4HR PRN EACHEYE 09/02/24 10:45 Lactulose 30 ml Q8HR PO 09/03/24 14:00 09/05/24 11:39 30 ML Enteral Nutritional Formula 1,000 ml 15ML/HR GT 09/03/24 17:30 Diagnostic Test (Pha) 1 strip IQ4HR 09/04/24 00:00 09/05/24 13:53 1 STRIP Insulin Human Regular IQ4HR SC 09/04/24 00:00 09/05/24 15:36 3 UNITS Dextrose 50 ml UD PRN IV 09/03/24 21:00 Hydralazine HCl 10 mg Q6HP PRN IV 09/03/24 21:00 09/05/24 06:17 10 MG Sodium Chloride 100 meq/Sodium Acetate 50 meq/ Potassium Chloride 20 meq/ Magnesium Sulfate 8 meq/ Multivitamins 10 ml/Chromium/ Copper/Manganese/ Zinc 1 ml/Insulin Human Regular 20 units/Amino Acids/ Dextrose 1,723.2 ml @ 72 mls/hr [id number] IV 09/04/24 22:00 09/05/24 21:59 09/04/24 22:17 72 MLS/HR Meropenem 50 ml @ 17 mls/hr Q12H IV 09/05/24 00:00 09/05/24 11:34 17 MLS/HR Hydralazine HCl 50 mg Q8HR PRN PO 09/05/24 09:15 Sodium Chloride 130 meq/Sodium Acetate 20 meq/ Potassium Chloride 20 meq/ Magnesium Sulfate 6 meq/ Multivitamins 10 ml/Chromium/ Copper/Manganese/ Zinc 1 ml/Insulin Human Regular 26 units/Amino Acids/ Dextrose 1,715.26 ml @ 71 mls/hr [id number] IV 09/05/24 22:00 09/06/24 21:59 Examination: GENERAL:Abnormal, LUNGS:Abnormal, MSK:Abnormal, NEURO:Abnormal laboratory and microbiology Laboratory Tests 09/05/24 03:40 Test 09/05/24 03:40 Range/Units Serum Glucose 214 H 74-106 mg/dL Microbiology Date/Time Source Procedure Growth Status 09/04/24 10:19 Blood Blood Culture - Preliminary NO GROWTH AFTER 24 HOURS OF INCUBATION. Resulted 08/31/24 18:46 Sacrum Gram Stain - Final Complete 08/31/24 18:46 Wound Culture - Final Enterococcus faecalis Presumptive Mary albicans Complete 08/31/24 15:08 Sputum Gram Stain - Final Complete 08/31/24 15:08 Respiratory Culture - Final Presumptive Mary albicans Complete 08/31/24 14:00 Urine - [place] Urine Culture - Final Complete Problem List/Assessment/Plan Problem List/Assessment/Plan Acute kidney injury in the setting of hypotension and volume depletion -> ATN Uncontrolled diabetes Ventilator-dependent hypoxic acute respiratory failure due to aspiration pneumonia gastric obstruction vs Illeus w/ persistent vomiting carotid artery injury due to temp HD cath s/p vascular surgery repair femoral tunnel HD catheter placed by vascular hyperkalemia Recommendations HD Saturday epogen Plan discussed with: Other Dietary Evaluation Review Recommendations by RD: Protein Supplementation, PPN/TPN Comments: Pt is at high risk of malnutrition due to prolonged vomiting leading to inadequate nutrient intake and hypermetabolic state secondary to acute inflammation. Recommendation: 1) Start PN/TPN per pharmacy 2) If GI is accessible, consider TF Pivot 1.5Cal @ 60ml/hr along with Pro-stat 1 pk TID. Start @ 10ml/hr, increase 10ml/hr Q4H until goal rate is reached. Advance TF rate slowly and gradually to prevent Refeeding syndrome. Water Flush 50ml Q4H if allowed. TF Provision --- TF at goal volume to provide 1440 ml total volume, 2160 kcal (+300 kcal via Pro-stat = 2460 kcal), 135 gm pro (+45 gm via ProStat = 180 gm), 1093 ml H20 (meets 100% est. kcal needs, 100% est. protein needs) 3) Monitor Potassium, Phosphate, Magnesium for Refeeding syndrome 4) Des 1 pk daily For DTI 5) Continue current plan of care Expected Outcomes/Goals: Blood glucose to improve Nutrient intake to meet at least 75% estimated needs FU 2-3 days Food and Nutrition Intake (Mod: <75% est energy req 7days Protein Calorie Malnutrition: Severe KASSANDRA VARGAS MD September 05, 2024 15:55
[2024-09-05] MEDS ORDERED: POTASSIUM CHL 20MEQ/100ML 100 ML IV SCH (17:30)
[2024-09-05] MEDS: POTASSIUM CHL 20MEQ/50ML 50 ML IV SCH (18:27)
[2024-09-05] MEDS: TPN PER PHARMACY IV NR (21:04)
[2024-09-05] MEDS: Pivot 1.5 Cal One Liter GT SCH (21:39)
[2024-09-06] VITALS (114 sets, daily range): BP systolic 90–164; BP diastolic 37–92; PULSE 73–110; RESP 13–29; TEMP 98.1–99.7; O2SAT 95–100
[2024-09-06] MEDS: NOREPINEPHRINE BITARTRATE IV ONE (00:49)
[2024-09-06 03:39] LABS: Basophils # (auto) 0 10 ^3/uL (0-0.2); Basophils % (auto) 0.1 % (0.0-2.0); Eosinophils # (auto) 0.5 10 ^3/uL (0-0.8); Hematocrit 25.8 % (41.0-53.0); Hemoglobin 8.7 g/dL (13.5-17.5); Lymphocytes # (auto) 0.9 10 ^3/uL (0.4-5.4); Mean Corpuscular Hgb Conc. 33.8 g/dL (32.0-36.0)
[2024-09-06 03:41] LABS: Eosinophils % (auto) 3.1 % (0.0-7.0); Lymphocytes % (auto) 5.8 % (10.0-50.0); Mean Corpuscular Hemoglobin 29.1 pg (28.0-32.0); Monocytes # (auto) 0.6 10 ^3/uL (0-1.3); Monocytes % (auto) 3.7 % (0.0-12.0); Neutrophils % (auto) 87.3 % (37.0-80.0); Platelet Count (auto) 487 10^3/uL (140-450); White Blood Cell 16.1 10^3/uL (4.4-10.8)
[2024-09-06 03:55] LABS: Alanine Aminotransferase 13 U/L (7-40); Albumin 3.4 g/dL (3.2-4.8); Anion Gap 13 (5-15); Aspartate Aminotransferase 16 U/L (13-40); BUN/Creatinine Ratio 25.7 (10.0-20.0); Calcium 9.5 mg/dL (8.7-10.4); Carbon Dioxide 25 mmol/L (20-31); Chloride 101 mmol/L (98-107); Magnesium 1.9 mg/dL (1.6-2.6); Sodium 139 mmol/L (136-145); Total Protein 7.5 g/dL (5.7-8.2)
[2024-09-06 04:08] LABS: Glucose 246 mg/dL (74-106); Potassium 3.5 mmol/L (3.5-5.1)
[2024-09-06 04:09] LABS: Alkaline Phosphatase 392 U/L (46-116); Bilirubin, Total 0.2 mg/dL (0.2-1.0); Blood Urea Nitrogen 92 mg/dL (9-23)
--- NOTE | 2024-09-06 05:42 | DVH ---
CHEST RADIOGRAPH Indication: INTUBATED Technique: Single frontal view of the chest was obtained COMPARISON: XY CHEST XRAY 1 VIEW on DOS: 09/05/24, XY CHEST PORTABLE on DOS: 09/04/24, XY CHEST PORTABLE on DOS: 09/04/24, XY CHEST PORTABLE on DOS: 09/04/24, XY CHEST PORTABLE on DOS: 09/03/24 FINDINGS: Lines and Tubes: Unchanged. Lungs: Interval progression in multifocal parenchymal infiltrate and consolidation with increasing op acity within the left apex and right lung base. Pleura: No effusion. No pneumothorax. Cardiomediastinal contours: Unremarkable Bones: Unremarkable IMPRESSION: 1. Progressive bilateral multifocal parenchymal infiltrate and consolidation. 2. Lines and tubes unchanged.
[2024-09-06 07:27] LABS: Base Excess 0.2 mmol/L (-2.0-3.0)
[2024-09-06] MEDS: DEXMEDETOMIDINE HCL IN D5W 100 ML IV SCH (11:00)
[2024-09-06] MEDS: FUROSEMIDE 40 MG/4 ML VIAL IV ONE (11:58)
--- NOTE | 2024-09-06 12:33 | DVHPN2 ---
Subjective The patient is seen and examined at bedside. No change overnight. The patient did not tolerate CPAP trial. Remained on ventilation support Reviewed: Care Plan, H&P, Labs, Medications, Previous Orders, Radiology, Other (Consultations) Changes from previous H/P or p: No Changes Objective Vitals Vital Signs Date Time Temp Pulse Resp B/P (MAP) Pulse Ox O2 Delivery O2 Flow Rate FiO2 09/06/24 12:15 30 09/06/24 12:14 24 98 Mechanical Ventilator+ 09/06/24 12:00 98.4 93 148/83 (104) 98.4 Intake/Output Intake and Output 09/06/24 07:00 Intake Total 3931.084 ml Output Total 2900 ml Balance 1031.084 ml Intake Oral 200 ml IV Total 3146.084 ml Tube Feeding 585 ml Output Urine Total 2300 ml Stool Total 200 ml Gastric Drainage Total 400 ml # Bowel Movements 3 General Appearance: Other (Intubated and sedated) HEENT: Atraumatic Lungs: Other (Mechanical ventilation sounds) Cardiovascular: Normal S1, Normal S2, Other (Tachycardia) Abdomen: Normal bowel sounds, Soft Genitourinary: Other (Friedman's) Neuro: Other (Intubated and sedated) Psych/Mental Status: Other (Intubated and sedated) Medications Current Medications Medications Dose Ordered Sig/Nikki Route Start Time Stop Time Status Last Admin Dose Admin Diagnostic Test (Pha) 1 strip ACHS 08/19/24 17:00 Cancel Norepinephrine Bitartrate 250 ml @ 3.75 mls/hr Q24H IV 08/19/24 17:15 Cancel Midazolam HCl 50 ml @ 1 mls/hr Q24H IV 08/19/24 17:15 09/06/24 11:58 6 MLS/HR Ipratropium [place] 0.5 mg Q6HR NEB 08/19/24 18:00 09/06/24 11:06 0.5 MG Albuterol 2.5 mg Q6HR NEB 08/19/24 18:00 09/06/24 11:06 2.5 MG Pantoprazole Sodium 40 mg BID IV 08/20/24 22:00 09/06/24 07:38 40 MG Acetaminophen 650 mg Q6HP PRN [place] 08/21/24 01:45 08/23/24 03:36 650 MG Sucralfate 1 gm QID@0600,1130,1700,2200 GT 08/21/24 11:30 09/06/24 11:51 1 GM Epoetin Aquilino-epbx 10,000 unit TUTHSA@2100 [place] 08/26/24 21:00 09/05/24 21:03 10,000 UNIT Albumin Human 100 ml @ 100 mls/hr PRN PRN IV 08/26/24 06:45 08/27/24 07:45 100 MLS/HR Propofol 100 ml @ 3.804 mls/ hr Q24H IV 08/27/24 04:30 09/06/24 09:42 19.02 MLS/HR Norepinephrine Bitartrate 32 mg/ Sodium Chloride 250 ml @ 0.469 mls/ hr Q24H IV 08/27/24 13:00 09/06/24 01:01 0.469 MLS/HR Fentanyl Citrate 250 ml @ 2.5 mls/hr Q24H IV 08/30/24 20:00 09/06/24 09:40 22.5 MLS/HR Micafungin Sodium 100 mg/Sodium Chloride 100 ml @ 100 mls/hr DAILY@0900 IV 09/01/24 09:00 09/06/24 07:38 100 MLS/HR Metoclopramide HCl 10 mg Q8HR IV 08/31/24 22:00 09/05/24 11:39 10 MG Linezolid 300 ml @ 150 mls/hr Q12HR IV 08/31/24 22:00 09/06/24 07:38 150 MLS/HR Heparin Sodium (Porcine) 5,000 units Q12HR SC 08/31/24 22:00 09/06/24 07:39 5,000 UNITS Sodium Chloride 10 ml QSHIFT@10,22 IV 08/31/24 22:00 09/06/24 07:38 10 ML Artificial Tears 2 drop Q4HR PRN EACHEYE 09/02/24 10:45 Lactulose 30 ml Q8HR PO 09/03/24 14:00 09/05/24 11:39 30 ML Enteral Nutritional Formula 1,000 ml 15ML/HR GT 09/03/24 17:30 09/05/24 21:39 1,000 ML Diagnostic Test (Pha) 1 strip IQ4HR 09/04/24 00:00 5/4/25 11:51 1 STRIP Insulin Human Regular IQ4HR SC 09/04/24 00:00 09/06/24 11:51 2 UNITS Dextrose 50 ml UD PRN IV 09/03/24 21:00 Hydralazine HCl 10 mg Q6HP PRN IV 09/03/24 21:00 09/05/24 06:17 10 MG Meropenem 50 ml @ 17 mls/hr Q12H IV 09/05/24 00:00 09/06/24 11:59 17 MLS/HR Hydralazine HCl 50 mg Q8HR PRN PO 09/05/24 09:15 Insulin Glargine 10 units HS SC 09/06/24 22:00 Laboratory Results Laboratory Tests 09/06/24 03:00 Chemistry Test 09/06/24 03:00 Albumin 3.4 g/dL (3.2-4.8) Calcium Level 9.5 mg/dL (8.7-10.4) Magnesium Level 1.9 mg/dL (1.6-2.6) Phosphorus Level 5.0 mg/dL (2.4-5.1) Total Protein 7.5 g/dL (5.7-8.2) LFT Test 09/06/24 03:00 Alanine Aminotransferase (ALT) 13 U/L (7-40) Alkaline Phosphatase 392 U/L (46-116) H Aspartate Amino Transferase (AST) 16 U/L (13-40) Total Bilirubin 0.2 mg/dL (0.2-1.0) Urinalysis Test 08/19/24 11:25 Urine Color Colorless (Yellow) Urine Clarity Ex.turbid (Clear) Urine pH 6.5 (5.0-9.0) Urine Specific [place] 1.017 (1.001-1.035) Urine Protein 1+ (Negative) H Urine Ketones Negative (Negative) Urine Blood 1+ /uL (Negative) H Urine Nitrite Negative (Negative) Urine Bilirubin Negative (Negative) Urine Urobilinogen Normal mg/dL (Negative) Urine Leukocyte Esterase Trace /uL (Negative) Urine RBC 5 /hpf (0 - 3) Urine Microscopic WBC 16 /HPF (0-3) H Urine Squamous Epithelial Cells Few /hpf (<5) Urine Renal Epithelial Cells Few /hpf (None Seen) Urine Amorphous Crystals Few /hpf (None Seen) Urine Bacteria Few /hpf (None Seen) H Urine Mucus Few (None Seen) Urine Sperm Present /hpf (None Seen) Urine Creatinine 77.13 mg/dL (30.0-125.0) Urine Sodium 15 mmol/L (40-220) L Urine Glucose 3+ mg/dL (Normal) H Blood Gas Results Test 09/06/24 07:20 Arterial Blood pH 7.397 (7.350-7.450) FiO2 % 30.0 Microbiology Microbiology Date/Time Source Procedure Growth Status 09/04/24 10:19 Blood Blood Culture - Preliminary NO GROWTH AFTER 48 HOURS OF INCUBATION. Resulted 08/31/24 18:46 Sacrum Gram Stain - Final Complete 08/31/24 18:46 Wound Culture - Final Enterococcus faecalis Presumptive Angelique albicans Complete 08/31/24 15:08 Sputum Gram Stain - Final Complete 08/31/24 15:08 Respiratory Culture - Final Presumptive Angelique albicans Complete 08/31/24 14:00 Urine - [place] Urine Culture - Final Complete Labs and/or images reviewed: Labs reviewed by me Assessment/Plan Assessment/Plan Acute metabolic encephalopathy likely due to sepsis/HHS - on mechanical ventilation Respiratory Acute hypoxic respiratory failure Probable aspiration pneumonia ARDS - on mechanical ventilation with FiO2 30%, peep 8 - chest x-ray shows bilateral patchy opacities - ABG compensated - duonebs q6hr - IV antibiotics meropenem, linezolid, micafungin - sputum culture showed growth angelique Cardiovascular Shock due to sepsis possibly from aspiration Acute on chronic heart failure with reduced ejection fraction - echo showed LVEF< 40% - off norepinephrine Infectious disease Septic shock likely due to aspiration pneumonia Infected Sacral ulcer, unstageable pressure ulcer - on IV antibiotics - culture from sacral ulcer growing enterococcus and angelique - blood culture growing S epidermidis and staph hominis - on linezolid Nephrology Metabolic alkalosis likely from intractable vomiting, resolved KATE on CKD likely due to be VMN from dehydration - on hemodialysis - urine output improved - lasix 80mg daily - nephrology on board GI ?Gastroparesis ?Upper GI bleed - no bowel movements since with the patient in the hospital - KUB shows nonobstructive bowel gas pattern - on metoclopramide - Protonix b.i.d., sucralfate q.i.d. - 4 units of PRBC given, H&H stable - GI on board - CT with PO contrast showed no obstruction, started on tricke feed with dobhoff tube, TPN to be weaned off per protocol - lactulose q8hr Endocrinology Uncontrolled diabetes mellitus with a hyperglycemia Morbid obesity - on insulin sliding scale - lantus, held because of starting feeding through the Dobhoff tube diet: dobhoff tube DVT prophylaxis: on heparin , SCD Left upper arm PICC placed on 08/31 Right femoral dialysis catheter placed on 08/24 Friedman's catheter The patient is full code This medical document was created using an electronic medical record system with [employer] computerized dictation system. Although this document has been carefully reviewed, there may still be some phonetic and typographical errors. These areas are purely typographical due to imperfections of the software programs, and do not reflect any compromise in the patient's medical care. Plan discussed with: Other (RN) My Orders Orders - SHANI LANDRY MD Procedure Category Date Status Time Pharmacy [facility] 09/05/24 In Process Clarification: 18:13 Date of Service: September 06, 2024 Billing Provider: SHANI LANDRY MD Common Visit Codes: [id number] INP/OBS CARE(HIGH) SHANI LANDRY MD September 06, 2024 12:33
--- NOTE | 2024-09-06 12:48 | DVHPN2 ---
Progress Note Date Seen: September 06, 2024 Has the PT tested + for MRSA If YES, has PT been informed?: No Medical Necessity Reason Pt with a Central, PICC or Fol: Yes The following are medically ne: Central Line, Chavez Catheter Reason for chavez catheter: Strict I&O Subjective Patient reports: Other Review of Systems: Deferred Objective vital signs Vital Sign Date Time Temp Pulse Resp B/P (MAP) Pulse Ox O2 Delivery O2 Flow Rate FiO2 09/06/24 12:15 30 09/06/24 12:14 24 98 Mechanical Ventilator+ 09/06/24 12:00 98.4 93 148/83 (104) 98.4 Total Intake and Output 09/05/24 09/05/24 09/06/24 15:00 23:00 07:00 Intake Total 1454.092 ml 1634.592 ml 842.400 ml Output Total 1700 ml 1200 ml Balance 1454.092 ml -65.408 ml -357.600 ml medications Current Medications Medications Dose Ordered Sig/Nikki Route Start Time Stop Time Status Last Admin Dose Admin Diagnostic Test (Pha) 1 strip ACHS 08/19/24 17:00 Cancel Norepinephrine Bitartrate 250 ml @ 3.75 mls/hr Q24H IV 08/19/24 17:15 Cancel Midazolam HCl 50 ml @ 1 mls/hr Q24H IV 08/19/24 17:15 09/06/24 11:58 6 MLS/HR Ipratropium [place] 0.5 mg Q6HR NEB 08/19/24 18:00 09/06/24 11:06 0.5 MG Albuterol 2.5 mg Q6HR NEB 08/19/24 18:00 09/06/24 11:06 2.5 MG Pantoprazole Sodium 40 mg BID IV 08/20/24 22:00 09/06/24 07:38 40 MG Acetaminophen 650 mg Q6HP PRN MD 08/21/24 01:45 08/23/24 03:36 650 MG Sucralfate 1 gm QID@0600,1130,1700,2200 GT 08/21/24 11:30 09/06/24 11:51 1 GM Epoetin Aquilino-epbx 10,000 unit TUTHSA@2100 [place] 08/26/24 21:00 09/05/24 21:03 10,000 UNIT Albumin Human 100 ml @ 100 mls/hr PRN PRN IV 08/26/24 06:45 08/27/24 07:45 100 MLS/HR Propofol 100 ml @ 3.804 mls/ hr Q24H IV 08/27/24 04:30 09/06/24 09:42 19.02 MLS/HR Norepinephrine Bitartrate 32 mg/ Sodium Chloride 250 ml @ 0.469 mls/ hr Q24H IV 08/27/24 13:00 09/06/24 01:01 0.469 MLS/HR Fentanyl Citrate 250 ml @ 2.5 mls/hr Q24H IV 08/30/24 20:00 09/06/24 09:40 22.5 MLS/HR Micafungin Sodium 100 mg/Sodium Chloride 100 ml @ 100 mls/hr DAILY@0900 IV 09/01/24 09:00 09/06/24 07:38 100 MLS/HR Metoclopramide HCl 10 mg Q8HR IV 08/31/24 22:00 09/05/24 11:39 10 MG Linezolid 300 ml @ 150 mls/hr Q12HR IV 08/31/24 22:00 09/06/24 07:38 150 MLS/HR Heparin Sodium (Porcine) 5,000 units Q12HR SC 08/31/24 22:00 09/06/24 07:39 5,000 UNITS Sodium Chloride 10 ml QSHIFT@10,22 IV 08/31/24 22:00 09/06/24 07:38 10 ML Artificial Tears 2 drop Q4HR PRN EACHEYE 09/02/24 10:45 Lactulose 30 ml Q8HR PO 09/03/24 14:00 09/05/24 11:39 30 ML Enteral Nutritional Formula 1,000 ml 15ML/HR GT 09/03/24 17:30 09/05/24 21:39 1,000 ML Diagnostic Test (Pha) 1 strip IQ4HR 09/04/24 00:00 09/06/24 11:51 1 STRIP Insulin Human Regular IQ4HR SC 09/04/24 00:00 09/06/24 11:51 2 UNITS Dextrose 50 ml UD PRN IV 09/03/24 21:00 Hydralazine HCl 10 mg Q6HP PRN IV 09/03/24 21:00 09/05/24 06:17 10 MG Meropenem 50 ml @ 17 mls/hr Q12H IV 09/05/24 00:00 09/06/24 11:59 17 MLS/HR Hydralazine HCl 50 mg Q8HR PRN PO 09/05/24 09:15 Insulin Glargine 10 units HS SC 09/06/24 22:00 Examination: GENERAL:Abnormal, MSK:Abnormal, SKIN:Abnormal, NEURO:Abnormal laboratory and microbiology Laboratory Tests 09/06/24 03:00 Test 09/06/24 03:00 Range/Units Serum Glucose 246 H 74-106 mg/dL Microbiology Date/Time Source Procedure Growth Status 09/04/24 10:19 Blood Blood Culture - Preliminary NO GROWTH AFTER 48 HOURS OF INCUBATION. Resulted 08/31/24 18:46 Sacrum Gram Stain - Final Complete 08/31/24 18:46 Wound Culture - Final Enterococcus faecalis Presumptive Mary albicans Complete 08/31/24 15:08 Sputum Gram Stain - Final Complete 08/31/24 15:08 Respiratory Culture - Final Presumptive Mary albicans Complete 08/31/24 14:00 Urine - [place] Urine Culture - Final Complete Problem List/Assessment/Plan Problem List/Assessment/Plan Acute kidney injury in the setting of hypotension and volume depletion -> ATN Uncontrolled diabetes Ventilator-dependent hypoxic acute respiratory failure due to aspiration pneumonia gastric obstruction vs Illeus w/ persistent vomiting carotid artery injury due to temp HD cath s/p vascular surgery repair femoral tunnel HD catheter placed by vascular hyperkalemia Recommendations HD Saturday epogen bumex bid iv Plan discussed with: Other My Orders My Orders Orders - KASSANDRA VARGAS MD Procedure Category Date Status Time Bumetanide Injection PHA 09/06/24 Verified (Bumex Injection) 18:00 Dietary Evaluation Review Recommendations by RD: Protein Supplementation, PPN/TPN Comments: Pt is at high risk of malnutrition due to prolonged vomiting leading to inadequate nutrient intake and hypermetabolic state secondary to acute inflammation. Recommendation: 1) Start PN/TPN per pharmacy 2) If GI is accessible, consider TF Pivot 1.5Cal @ 60ml/hr along with Pro-stat 1 pk TID. Start @ 10ml/hr, increase 10ml/hr Q4H until goal rate is reached. Advance TF rate slowly and gradually to prevent Refeeding syndrome. Water Flush 50ml Q4H if allowed. TF Provision --- TF at goal volume to provide 1440 ml total volume, 2160 kcal (+300 kcal via Pro-stat = 2460 kcal), 135 gm pro (+45 gm via ProStat = 180 gm), 1093 ml H20 (meets 100% est. kcal needs, 100% est. protein needs) 3) Monitor Potassium, Phosphate, Magnesium for Refeeding syndrome 4) Des 1 pk daily For DTI 5) Continue current plan of care Expected Outcomes/Goals: Blood glucose to improve Nutrient intake to meet at least 75% estimated needs FU 2-3 days Food and Nutrition Intake (Mod: <75% est energy req 7days Protein Calorie Malnutrition: Severe KASSANDRA VARGAS MD September 06, 2024 12:48
--- NOTE | 2024-09-06 13:11 | DVHPN2 ---
Progress Note - Dictate Date Seen: September 06, 2024 Has the PT tested + for MRSA If YES, has PT been informed?: No Medical Necessity Reason Pt with a Central, PICC or Fol: Yes The following are medically ne: Central Line, Chavez Catheter Reason for chavez catheter: Strict I&O vital signs Vital Sign Date Time Temp Pulse Resp B/P (MAP) Pulse Ox O2 Delivery O2 Flow Rate FiO2 09/06/24 12:15 30 09/06/24 12:14 24 98 Mechanical Ventilator+ 09/06/24 12:00 98.4 93 148/83 (104) 98.4 Total Intake and Output 09/05/24 09/05/24 09/06/24 15:00 23:00 07:00 Intake Total 1454.092 ml 1634.592 ml 842.400 ml Output Total 1700 ml 1200 ml Balance 1454.092 ml -65.408 ml -357.600 ml medications Current Medications Medications Dose Ordered Sig/Nikki Route Start Time Stop Time Status Last Admin Dose Admin Diagnostic Test (Pha) 1 strip ACHS 08/19/24 17:00 Cancel Norepinephrine Bitartrate 250 ml @ 3.75 mls/hr Q24H IV 08/19/24 17:15 Cancel Midazolam HCl 50 ml @ 1 mls/hr Q24H IV 08/19/24 17:15 09/06/24 11:58 6 MLS/HR Ipratropium [place] 0.5 mg Q6HR NEB 08/19/24 18:00 09/06/24 11:06 0.5 MG Albuterol 2.5 mg Q6HR NEB 08/19/24 18:00 09/06/24 11:06 2.5 MG Pantoprazole Sodium 40 mg BID IV 08/20/24 22:00 09/06/24 07:38 40 MG Acetaminophen 650 mg Q6HP PRN IN 08/21/24 01:45 08/23/24 03:36 650 MG Sucralfate 1 gm QID@0600,1130,1700,2200 GT 08/21/24 11:30 09/06/24 11:51 1 GM Epoetin Aquilino-epbx 10,000 unit TUTHSA@2100 SC 08/26/24 21:00 09/05/24 21:03 10,000 UNIT Albumin Human 100 ml @ 100 mls/hr PRN PRN IV 08/26/24 06:45 08/27/24 07:45 100 MLS/HR Propofol 100 ml @ 3.804 mls/ hr Q24H IV 08/27/24 04:30 09/06/24 09:42 19.02 MLS/HR Norepinephrine Bitartrate 32 mg/ Sodium Chloride 250 ml @ 0.469 mls/ hr Q24H IV 08/27/24 13:00 09/06/24 01:01 0.469 MLS/HR Fentanyl Citrate 250 ml @ 2.5 mls/hr Q24H IV 08/30/24 20:00 09/06/24 09:40 22.5 MLS/HR Micafungin Sodium 100 mg/Sodium Chloride 100 ml @ 100 mls/hr DAILY@0900 IV 09/01/24 09:00 09/06/24 07:38 100 MLS/HR Metoclopramide HCl 10 mg Q8HR IV 08/31/24 22:00 09/05/24 11:39 10 MG Linezolid 300 ml @ 150 mls/hr Q12HR IV 08/31/24 22:00 09/06/24 07:38 150 MLS/HR Heparin Sodium (Porcine) 5,000 units Q12HR SC 08/31/24 22:00 09/06/24 07:39 5,000 UNITS Sodium Chloride 10 ml QSHIFT@10,22 IV 08/31/24 22:00 09/06/24 07:38 10 ML Artificial Tears 2 drop Q4HR PRN EACHEYE 09/02/24 10:45 Lactulose 30 ml Q8HR PO 09/03/24 14:00 09/05/24 11:39 30 ML Enteral Nutritional Formula 1,000 ml 15ML/HR GT 09/03/24 17:30 09/05/24 21:39 1,000 ML Diagnostic Test (Pha) 1 strip IQ4HR 09/04/24 00:00 09/06/24 11:51 1 STRIP Insulin Human Regular IQ4HR SC 09/04/24 00:00 09/06/24 11:51 2 UNITS Dextrose 50 ml UD PRN IV 09/03/24 21:00 Hydralazine HCl 10 mg Q6HP PRN IV 09/03/24 21:00 09/05/24 06:17 10 MG Meropenem 50 ml @ 17 mls/hr Q12H IV 09/05/24 00:00 09/06/24 11:59 17 MLS/HR Hydralazine HCl 50 mg Q8HR PRN PO 09/05/24 09:15 Insulin Glargine 10 units HS SC 09/06/24 22:00 Bumetanide 2.5 mg BIDD IV 09/06/24 18:00 laboratory and microbiology Laboratory Tests 09/06/24 03:00 Test 09/06/24 03:00 Range/Units Serum Glucose 246 H 74-106 mg/dL Assessment/Plan Impression: Acute hypoxic respiratory failure On mechanical ventilator Gastrointestinal hemorrhage, upper Aspiration pneumonia MAGDALENA mucous plug Obesity BMI 35.9 Patient seen and examined in ICU Events: On mechanical ventilation s/p intubation peep 8, FiO2 30% Patient making stool, improving Labs and imaging reviewed BUN/Creatinine elevated Followed by nephrology ABG reviewed Management Vent support Daily ABG and CXR while intubated Sedation holiday daily If patient follows commands, proceed to weaning trial Pressure support 11/07, extubate when ready HD per Nephrology Monitor renal function Monitor electrolytes. Supplement as necessary. Continue bronchodilators/Mucomyst Continue antibiotics. Continue antifungals Follow up cultures TPN for nutritional support Accu-Cheks, ISS Continue bronchodilators. Continue antibiotics. Pressors as necessary for hemodynamic support Titrate to keep mean arterial pressure greater than 65 mmHg. Monitor hemoglobin GI recs appreciated DVT prophylaxis - Lovenox. Critical care time 35 minutes Dietary Evaluation Review Recommendations by RD: Protein Supplementation, PPN/TPN Comments: Pt is at high risk of malnutrition due to prolonged vomiting leading to inadequate nutrient intake and hypermetabolic state secondary to acute inflammation. Recommendation: 1) Start PN/TPN per pharmacy 2) If GI is accessible, consider TF Pivot 1.5Cal @ 60ml/hr along with Pro-stat 1 pk TID. Start @ 10ml/hr, increase 10ml/hr Q4H until goal rate is reached. Advance TF rate slowly and gradually to prevent Refeeding syndrome. Water Flush 50ml Q4H if allowed. TF Provision --- TF at goal volume to provide 1440 ml total volume, 2160 kcal (+300 kcal via Pro-stat = 2460 kcal), 135 gm pro (+45 gm via ProStat = 180 gm), 1093 ml H20 (meets 100% est. kcal needs, 100% est. protein needs) 3) Monitor Potassium, Phosphate, Magnesium for Refeeding syndrome 4) Des 1 pk daily For DTI 5) Continue current plan of care Expected Outcomes/Goals: Blood glucose to improve Nutrient intake to meet at least 75% estimated needs FU 2-3 days Food and Nutrition Intake (Mod: <75% est energy req 7days Protein Calorie Malnutrition: Severe Plan discussed with: Other (Rn) REJI GUIDRY MD September 06, 2024 13:11
[2024-09-06] MEDS: BUMETANIDE 2.5mg/10ml (0.25 mg/ml) INJ IV SCH (16:36)
[2024-09-06] MEDS: ARTIFICIAL TEARS 15ml EACHEYE PRN (18:36)
[2024-09-06] MEDS: INSULIN LANTUS (GLARGINE) 1 /0.01ml (100units/ml) SC SCH (21:13)
[2024-09-06] MEDS ORDERED: TPN PER PHARMACY IV NR (22:00)
[2024-09-07] VITALS (108 sets, daily range): BP systolic 103–190; BP diastolic 59–108; PULSE 76–111; RESP 14–32; TEMP 98.1–99.6; O2SAT 91–99
[2024-09-07 01:57] LABS: Basophils # (auto) 0.1 10 ^3/uL (0-0.2); Hemoglobin 9.3 g/dL (13.5-17.5); Mean Corpuscular Volume 86.9 fL (80.0-100.0); Nucleated Red Blood Cells % 0.1 %; Red Cell Distribution Width 15.5 % (11.8-14.3)
[2024-09-07 01:59] LABS: Basophils % (auto) 0.8 % (0.0-2.0); Eosinophils # (auto) 0.8 10 ^3/uL (0-0.8); Eosinophils % (auto) 6.3 % (0.0-7.0); Hematocrit 26.1 % (41.0-53.0); Lymphocytes # (auto) 2.1 10 ^3/uL (0.4-5.4); Lymphocytes % (auto) 17.3 % (10.0-50.0); Mean Corpuscular Hemoglobin 30.9 pg (28.0-32.0); Mean Corpuscular Hgb Conc. 35.5 g/dL (32.0-36.0); Monocytes # (auto) 0.7 10 ^3/uL (0-1.3); Monocytes % (auto) 5.5 % (0.0-12.0); Neutrophils # (auto) 8.5 10 ^3/uL (1.6-8.6); Neutrophils % (auto) 70.1 % (37.0-80.0); Platelet Count (auto) 556 10^3/uL (140-450); White Blood Cell 12.1 10^3/uL (4.4-10.8)
[2024-09-07 02:15] LABS: Alanine Aminotransferase 14 U/L (7-40); Anion Gap 13 (5-15); Carbon Dioxide 24 mmol/L (20-31); Chloride 103 mmol/L (98-107); Magnesium 1.8 mg/dL (1.6-2.6); Sodium 140 mmol/L (136-145)
[2024-09-07 02:24] LABS: Glucose 160 mg/dL (74-106)
[2024-09-07 02:25] LABS: Albumin 3.1 g/dL (3.2-4.8); Alkaline Phosphatase 334 U/L (46-116); Aspartate Aminotransferase 19 U/L (13-40); Bilirubin, Total < 0.2 mg/dL (0.2-1.0); Calcium 8.7 mg/dL (8.7-10.4); Phosphorus 4.9 mg/dL (2.4-5.1)
[2024-09-07 02:28] LABS: Blood Urea Nitrogen 83 mg/dL (9-23)
[2024-09-07] MEDS ORDERED: POTASSIUM CHL 20MEQ/100ML 100 ML IV ONE (03:45)
[2024-09-07] MEDS: POTASSIUM CHL 20MEQ/50ML 50 ML IV ONE (05:16)
--- NOTE | 2024-09-07 05:19 | DVH ---
EXAM: XR Chest, 1 View CLINICAL INDICATION: Intubated TECHNIQUE: Frontal view of the chest. COMPARISON: XY CHEST PORTABLE on DOS: 09/06/24, XY CHEST XRAY 1 VIEW on DOS: 09/05/24, XY CHEST PORTABL E on DOS: 09/04/24, XY CHEST PORTABLE on DOS: 09/04/24, XY CHEST PORTABLE on DOS: 09/04/24 FINDINGS: LUNGS AND PLEURAL SPACES: Congestion and edema. Superimposed pneumonia can not be excluded. No pn eumothorax. HEART: Unremarkable. No cardiomegaly. MEDIASTINUM: Unremarkable. Normal mediastinal contour. BONES/JOINTS: Unremarkable. No acute fracture. TUBES, LINES AND DEVICES: The endotracheal tube (ETT) is in satisfactory position. Enteric tube ti p in the stomach. OTHER FINDINGS: . . IMPRESSION: Congestion and edema. Superimposed pneumonia can not be excluded.
[2024-09-07 06:39] LABS: Base Excess 2.5 mmol/L (-2.0-3.0)
[2024-09-07] MEDS: SODIUM CHL 0.9% 1000 ML BAG XX ONE (06:55)
[2024-09-07 13:18] LABS: Chloride 101 mmol/L (98-107); Potassium 3.7 mmol/L (3.5-5.1); Sodium 141 mmol/L (136-145)
[2024-09-07 13:19] LABS: Anion Gap 12 (5-15); Calcium 9.9 mg/dL (8.7-10.4); Carbon Dioxide 28 mmol/L (20-31)
[2024-09-07 13:24] LABS: BUN/Creatinine Ratio 25.3 (10.0-20.0); Blood Urea Nitrogen 71 mg/dL (9-23); Glucose 282 mg/dL (74-106)
--- NOTE | 2024-09-07 16:06 | DVHPN2 ---
Progress Note Date Seen: September 07, 2024 Has the PT tested + for MRSA If YES, has PT been informed?: No Medical Necessity Reason Pt with a Central, PICC or Fol: Yes The following are medically ne: Central Line, Chavez Catheter Reason for chavez catheter: Strict I&O Subjective Patient reports: Other (Sister at bedside) Review of Systems: Deferred Objective vital signs Vital Sign Date Time Temp Pulse Resp B/P (MAP) Pulse Ox O2 Delivery O2 Flow Rate FiO2 09/07/24 15:09 104 27 142/81 (101) 98 30 09/07/24 14:06 Mechanical Ventilator+ 09/07/24 12:00 98.5 98.5 Total Intake and Output 09/06/24 09/06/24 09/07/24 15:00 23:00 07:00 Intake Total 816.890 ml 1141.728 ml 807.256 ml Output Total 3100 ml 2125 ml Balance 816.890 ml -1958.272 ml -1317.744 ml medications Current Medications Medications Dose Ordered Sig/Nikki Route Start Time Stop Time Status Last Admin Dose Admin Diagnostic Test (Pha) 1 strip ACHS 08/19/24 17:00 Cancel Norepinephrine Bitartrate 250 ml @ 3.75 mls/hr Q24H IV 08/19/24 17:15 Cancel Midazolam HCl 50 ml @ 1 mls/hr Q24H IV 08/19/24 17:15 09/06/24 23:31 5 MLS/HR Ipratropium [place] 0.5 mg Q6HR NEB 08/19/24 18:00 09/07/24 11:00 0.5 MG Albuterol 2.5 mg Q6HR NEB 08/19/24 18:00 09/07/24 11:00 2.5 MG Pantoprazole Sodium 40 mg BID IV 08/20/24 22:00 09/07/24 10:18 40 MG Acetaminophen 650 mg Q6HP PRN [place] 08/21/24 01:45 08/23/24 03:36 650 MG Epoetin Aquilino-epbx 10,000 unit TUTHSA@2100 SC 08/26/24 21:00 09/05/24 21:03 10,000 UNIT Albumin Human 100 ml @ 100 mls/hr PRN PRN IV 08/26/24 06:45 08/27/24 07:45 100 MLS/HR Propofol 100 ml @ 3.804 mls/ hr Q24H IV 08/27/24 04:30 09/07/24 01:28 15.216 MLS/HR Norepinephrine Bitartrate 32 mg/ Sodium Chloride 250 ml @ 0.469 mls/ hr Q24H IV 08/27/24 13:00 09/06/24 01:01 0.469 MLS/HR Fentanyl Citrate 250 ml @ 2.5 mls/hr Q24H IV 08/30/24 20:00 09/06/24 21:06 22.5 MLS/HR Micafungin Sodium 100 mg/Sodium Chloride 100 ml @ 100 mls/hr DAILY@0900 IV 09/01/24 09:00 09/07/24 09:00 100 MLS/HR Linezolid 300 ml @ 150 mls/hr Q12HR IV 08/31/24 22:00 09/07/24 10:19 150 MLS/HR Heparin Sodium (Porcine) 5,000 units Q12HR SC 08/31/24 22:00 09/06/24 21:13 5,000 UNITS Sodium Chloride 10 ml QSHIFT@10,22 IV 08/31/24 22:00 09/07/24 10:18 10 ML Artificial Tears 2 drop Q4HR PRN EACHEYE 09/02/24 10:45 09/07/24 05:15 2 DROP Enteral Nutritional Formula 1,000 ml 15ML/HR GT 09/03/24 17:30 09/05/24 21:39 1,000 ML Diagnostic Test (Pha) 1 strip IQ4HR 09/04/24 00:00 09/07/24 12:21 1 STRIP Insulin Human Regular IQ4HR SC 09/04/24 00:00 09/07/24 12:33 6 UNITS Dextrose 50 ml UD PRN IV 09/03/24 21:00 Hydralazine HCl 10 mg Q6HP PRN IV 09/03/24 21:00 09/07/24 05:15 10 MG Meropenem 50 ml @ 17 mls/hr Q12H IV 09/05/24 00:00 09/07/24 12:22 17 MLS/HR Hydralazine HCl 50 mg Q8HR PRN PO 09/05/24 09:15 Insulin Glargine 10 units HS SC 09/06/24 22:00 09/06/24 21:13 10 UNITS Bumetanide 2.5 mg BIDD IV 09/06/24 18:00 09/07/24 05:16 2.5 MG Examination: GENERAL:Abnormal, LUNGS:Abnormal, MSK:Abnormal, NEURO:Normal laboratory and microbiology Laboratory Tests 09/07/24 12:53 09/07/24 01:50 Test 09/07/24 12:53 Range/Units Serum Glucose 282 #H 74-106 mg/dL Microbiology Date/Time Source Procedure Growth Status 09/04/24 10:19 Blood Blood Culture - Preliminary NO GROWTH AFTER 72 HOURS OF INCUBATION. Resulted 08/31/24 18:46 Sacrum Gram Stain - Final Complete 08/31/24 18:46 Wound Culture - Final Enterococcus faecalis Presumptive Mary albicans Complete 08/31/24 15:08 Sputum Gram Stain - Final Complete 08/31/24 15:08 Respiratory Culture - Final Presumptive Mary albicans Complete 08/31/24 14:00 Urine - [place] Urine Culture - Final Complete Problem List/Assessment/Plan Problem List/Assessment/Plan Acute kidney injury in the setting of hypotension and volume depletion -> ATN Uncontrolled diabetes Ventilator-dependent hypoxic acute respiratory failure due to aspiration pneumonia gastric obstruction vs Illeus w/ persistent vomiting carotid artery injury due to temp HD cath s/p vascular surgery repair femoral tunnel HD catheter placed by vascular hyperkalemia Recommendations Urine output is better with diuretics Had dialysis on 09/07/2024 Monitor for renal recovery epogen bumex bid iv Plan discussed with: Other My Orders My Orders Orders - KASSANDRA VARGAS MD Procedure Category Date Status Time Communication Order ORDERS 09/07/24 Transmitted 07:06 Dietary Evaluation Review Recommendations by RD: Protein Supplementation, PPN/TPN Comments: Pt is at high risk of malnutrition due to prolonged vomiting leading to inadequate nutrient intake and hypermetabolic state secondary to acute inflammation. Recommendation: 1) Start PN/TPN per pharmacy 2) If GI is accessible, consider TF Pivot 1.5Cal @ 60ml/hr along with Pro-stat 1 pk TID. Start @ 10ml/hr, increase 10ml/hr Q4H until goal rate is reached. Advance TF rate slowly and gradually to prevent Refeeding syndrome. Water Flush 50ml Q4H if allowed. TF Provision --- TF at goal volume to provide 1440 ml total volume, 2160 kcal (+300 kcal via Pro-stat = 2460 kcal), 135 gm pro (+45 gm via ProStat = 180 gm), 1093 ml H20 (meets 100% est. kcal needs, 100% est. protein needs) 3) Monitor Potassium, Phosphate, Magnesium for Refeeding syndrome 4) Des 1 pk daily For DTI 5) Continue current plan of care Expected Outcomes/Goals: Blood glucose to improve Nutrient intake to meet at least 75% estimated needs FU 2-3 days Food and Nutrition Intake (Mod: <75% est energy req 7days Protein Calorie Malnutrition: Severe KASSANDRA VARGAS MD September 07, 2024 16:06
--- NOTE | 2024-09-07 19:11 | DVHPNRES ---
Progress Note Date Seen: September 07, 2024 Resident Creating Document: ELIO SANTOS RESIDENT Has the PT tested + for MRSA If YES, has PT been informed?: No Medical Necessity Reason Pt with a Central, PICC or Fol: Yes The following are medically ne: Central Line, Chavez Catheter Reason for chavez catheter: Strict I&O Subjective Review of Systems Patient was a 44-year-old male with a past medical history of diabetes presented to the ER with a chief complaint of intractable vomitings and altered level of consciousness. According to the sister patient has been vomiting persistently for 7-10 days before coming to the hospital. She reports that he took a shot of Ozempic before the vomiting started. While in the ER patient was altered and was not able to protect his airways following which it was decided to intubate him and put him on mechanical ventilation. Before intubation when he was laid flat, had vomiting coffee-ground and aspirated. After intubation patient underwent bronchoscopy with removal of mucus plugs from left upper and left lower lung. Past medical history: Diabetes Past surgical history: Left foot surgery Social history: Smokes 1 pack of cigarettes per day, denied alcohol or any other drug use Home medications: ?? Patient seen and examined on the bedside Sedated and on mechanical ventilation 09/07/24 failed CPAP trial CPAP trial tomorrow patient underwent hemodialysis today with 3 L removed with good urinary output and negative balance -2419 ml Objective vital signs Vital Sign Date Time Temp Pulse Resp B/P (MAP) Pulse Ox O2 Delivery O2 Flow Rate FiO2 09/07/24 18:45 109 28 139/85 (103) 96 09/07/24 18:11 30 09/07/24 18:11 Mechanical Ventilator+ 09/07/24 16:00 99.6 99.6 Total Intake and Output 09/06/24 09/06/24 09/07/24 15:00 23:00 07:00 Intake Total 816.890 ml 1141.728 ml 807.256 ml Output Total 3100 ml 2125 ml Balance 816.890 ml -1958.272 ml -1317.744 ml medications Current Medications Medications Dose Ordered Sig/Nikki Route Start Time Stop Time Status Last Admin Dose Admin Diagnostic Test (Pha) 1 strip ACHS 08/19/24 17:00 Cancel Norepinephrine Bitartrate 250 ml @ 3.75 mls/hr Q24H IV 08/19/24 17:15 Cancel Midazolam HCl 50 ml @ 1 mls/hr Q24H IV 08/19/24 17:15 09/06/24 23:31 5 MLS/HR Ipratropium [place] 0.5 mg Q6HR NEB 08/19/24 18:00 09/07/24 18:32 0.5 MG Albuterol 2.5 mg Q6HR NEB 08/19/24 18:00 09/07/24 18:32 2.5 MG Pantoprazole Sodium 40 mg BID IV 08/20/24 22:00 09/07/24 10:18 40 MG Acetaminophen 650 mg Q6HP PRN [place] 08/21/24 01:45 08/23/24 03:36 650 MG Epoetin Aquilino-epbx 10,000 unit TUTHSA@2100 [place] 08/26/24 21:00 09/05/24 21:03 10,000 UNIT Albumin Human 100 ml @ 100 mls/hr PRN PRN IV 08/26/24 06:45 08/27/24 07:45 100 MLS/HR Propofol 100 ml @ 3.804 mls/ hr Q24H IV 08/27/24 04:30 09/07/24 17:48 19.02 MLS/HR Norepinephrine Bitartrate 32 mg/ Sodium Chloride 250 ml @ 0.469 mls/ hr Q24H IV 08/27/24 13:00 09/06/24 01:01 0.469 MLS/HR Fentanyl Citrate 250 ml @ 2.5 mls/hr Q24H IV 08/30/24 20:00 09/06/24 21:06 22.5 MLS/HR Micafungin Sodium 100 mg/Sodium Chloride 100 ml @ 100 mls/hr DAILY@0900 IV 09/01/24 09:00 09/07/24 09:00 100 MLS/HR Linezolid 300 ml @ 150 mls/hr Q12HR IV 08/31/24 22:00 09/07/24 10:19 150 MLS/HR Heparin Sodium (Porcine) 5,000 units Q12HR SC 08/31/24 22:00 09/06/24 21:13 5,000 UNITS Sodium Chloride 10 ml QSHIFT@, IV 08/31/24 22:00 09/07/24 10:18 10 ML Artificial Tears 2 drop Q4HR PRN EACHEYE 09/02/24 10:45 09/07/24 05:15 2 DROP Enteral Nutritional Formula 1,000 ml 15ML/HR GT 09/03/24 17:30 09/05/24 21:39 1,000 ML Diagnostic Test (Pha) 1 strip IQ4HR 09/04/24 00:00 09/07/24 17:48 1 STRIP Insulin Human Regular IQ4HR SC 09/04/24 00:00 09/07/24 17:55 3 UNITS Dextrose 50 ml UD PRN IV 09/03/24 21:00 Hydralazine HCl 10 mg Q6HP PRN IV 09/03/24 21:00 09/07/24 05:15 10 MG Meropenem 50 ml @ 17 mls/hr Q12H IV 09/05/24 00:00 09/07/24 12:22 17 MLS/HR Hydralazine HCl 50 mg Q8HR PRN PO 09/05/24 09:15 Insulin Glargine 10 units HS SC 09/06/24 22:00 09/06/24 21:13 10 UNITS Bumetanide 2.5 mg BIDD IV 09/06/24 18:00 09/07/24 18:02 2.5 MG Examination Examination: Constitutional: Patient sedated and on mechanical ventilation, RASS -3 Gen - mild conjuctival pallor, no icterus, no cyanosis, no clubbing, no LAD, 1+ edema in the feet . Skin - Patients skin is warm and dry. HEENT - normocephalic, atraumatic, moist mucous membranes. Neck - full ROM, no LAD, no jvd Pulmonary - B/L air entry present, diffuse rales, no wheezing, no stridor. cardiovascular - regular S1,S2 heard, no added sounds, no murmurs heard. GI - soft abdomen. no hepatospleenomegaly. bowel sounds hypoactive sacrum- ulcer seen , stage 1 ulcer with bloody oozing in gluteal fold Neurological - patient was sedated and on mechanical ventilation. Gag reflex present, pupils equal and reactive laboratory and microbiology Laboratory Tests 09/07/24 12:53 09/07/24 01:50 Test 09/07/24 12:53 Range/Units Serum Glucose 282 #H 74-106 mg/dL Microbiology Date/Time Source Procedure Growth Status 09/04/24 10:19 Blood Blood Culture - Preliminary NO GROWTH AFTER 72 HOURS OF INCUBATION. Resulted 08/31/24 18:46 Sacrum Gram Stain - Final Complete 08/31/24 18:46 Wound Culture - Final Enterococcus faecalis Presumptive Mary albicans Complete 08/31/24 15:08 Sputum Gram Stain - Final Complete 08/31/24 15:08 Respiratory Culture - Final Presumptive Mary albicans Complete 08/31/24 14:00 Urine - [place] Urine Culture - Final Complete Labs and/or images reviewed: Labs reviewed by me, Image(s) reviewed by me Problem List/Assessment/Plan Problem List/Assessment/Plan Assessment and plan: Neurology Acute metabolic encephalopathy likely due to sepsis/HHS - on mechanical ventilation - CPAP trial tomorrow Respiratory Acute hypoxic respiratory failure Probable aspiration pneumonia ARDS - on mechanical ventilation with FiO2 30%, peep 5 - chest x-ray shows bilateral patchy opacities - ABG compensated - duonebs q6hr - IV antibiotics meropenem, linezolid, micafungin - sputum culture showed growth of yeast Cardiovascular Shock due to sepsis possibly from aspiration Acute on chronic heart failure with reduced ejection fraction - echo showed LVEF< 40% - off norepinephrine Infectious disease Septic shock likely due to aspiration pneumonia Infected Sacral ulcer, unstageable pressure ulcer - on IV antibiotics - culture from sacral ulcer growing enterococcus - blood culture showed no growth - on linezolid Nephrology Metabolic alkalosis likely from intractable vomiting, resolved KATE on CKD likely due to be VMN from dehydration - on hemodialysis - urine output improved - IV bumetanide 2.5 mg b.i.d. - Epotein alpha-epbx per protocol GI ?Gastroparesis ?Upper GI bleed - KUB shows nonobstructive bowel gas pattern - Protonix b.i.d. - 4 units of PRBC given, H&H stable - GI on board - CT with PO contrast showed no obstruction, started on tricke feed with dobhoff tube, TPN to be weaned off per protocol - Dobbhoff tube with enteral feeding Glucerna Endocrinology Uncontrolled diabetes mellitus with a hyperglycemia Morbid obesity - on insulin sliding scale - lantus 10 U diet: dobhoff tube DVT prophylaxis: heparin held d/t GI bleed, SCD Left upper arm PICC placed on 08/31 Right femoral dialysis catheter placed on 08/24 Chavez's catheter Goals of care discussed with the patient's sister Sheree for over 27 mins. Full code Critical care time spent excluding procedures: 81 minutes Plan discussed with Dr. Flowers Plan discussed with: Patient, Other (Plan discussed with sister and RN) Dietary Evaluation Review Recommendations by RD: Protein Supplementation, PPN/TPN Comments: Pt is at high risk of malnutrition due to prolonged vomiting leading to inadequate nutrient intake and hypermetabolic state secondary to acute inflammation. Recommendation: 1) Start PN/TPN per pharmacy 2) If GI is accessible, consider TF Pivot 1.5Cal @ 60ml/hr along with Pro-stat 1 pk TID. Start @ 10ml/hr, increase 10ml/hr Q4H until goal rate is reached. Advance TF rate slowly and gradually to prevent Refeeding syndrome. Water Flush 50ml Q4H if allowed. TF Provision --- TF at goal volume to provide 1440 ml total volume, 2160 kcal (+300 kcal via Pro-stat = 2460 kcal), 135 gm pro (+45 gm via ProStat = 180 gm), 1093 ml H20 (meets 100% est. kcal needs, 100% est. protein needs) 3) Monitor Potassium, Phosphate, Magnesium for Refeeding syndrome 4) Des 1 pk daily For DTI 5) Continue current plan of care Expected Outcomes/Goals: Blood glucose to improve Nutrient intake to meet at least 75% estimated needs FU 2-3 days Food and Nutrition Intake (Mod: <75% est energy req 7days Protein Calorie Malnutrition: Severe Date of Service: September 07, 2024 Billing Provider: ARMANDO FLOWERS MD Common Visit Codes: 31845-[id number] CARE 30-74 MIN, 22740-[id number] CARE-EACH +30MIN ELIO SANTOS RESIDENT September 07, 2024 19:11 ARMANDO FLOWERS MD September 08, 2024 13:19
--- NOTE | 2024-09-07 21:05 | DVHPN2 ---
Progress Note - Dictate Date Seen: September 07, 2024 Has the PT tested + for MRSA If YES, has PT been informed?: No Medical Necessity Reason Pt with a Central, PICC or Fol: Yes The following are medically ne: Central Line, Chavez Catheter Reason for chavez catheter: Strict I&O Subjective Patient is getting enteral tube feedings through the Dobbhoff tube into the small bowel at 60 mL/hour low intermittent suction is ongoing from the NG tube; NG tube output somewhat dark in color Patient still has gastric residuals of about 400 mL Patient is having bowel movements vital signs Vital Sign Date Time Temp Pulse Resp B/P (MAP) Pulse Ox O2 Delivery O2 Flow Rate FiO2 09/07/24 20:45 94 22 137/85 (102) 97 09/07/24 20:01 30 09/07/24 20:00 Mechanical Ventilator+ 09/07/24 20:00 99.5 99.5 Total Intake and Output 09/06/24 09/06/24 09/07/24 15:00 23:00 07:00 Intake Total 816.890 ml 1141.728 ml 807.256 ml Output Total 3100 ml 2125 ml Balance 816.890 ml -1958.272 ml -1317.744 ml medications Current Medications Medications Dose Ordered Sig/Nikki Route Start Time Stop Time Status Last Admin Dose Admin Diagnostic Test (Pha) 1 strip ACHS 08/19/24 17:00 Cancel Norepinephrine Bitartrate 250 ml @ 3.75 mls/hr Q24H IV 08/19/24 17:15 Cancel Midazolam HCl 50 ml @ 1 mls/hr Q24H IV 08/19/24 17:15 09/06/24 23:31 5 MLS/HR Ipratropium [place] 0.5 mg Q6HR NEB 08/19/24 18:00 09/07/24 18:32 0.5 MG Albuterol 2.5 mg Q6HR NEB 08/19/24 18:00 09/07/24 18:32 2.5 MG Pantoprazole Sodium 40 mg BID IV 08/20/24 22:00 09/07/24 10:18 40 MG Acetaminophen 650 mg Q6HP PRN [place] 08/21/24 01:45 08/23/24 03:36 650 MG Epoetin Aquilino-epbx 10,000 unit TUTHSA@2100 [place] 08/26/24 21:00 09/05/24 21:03 10,000 UNIT Albumin Human 100 ml @ 100 mls/hr PRN PRN IV 08/26/24 06:45 08/27/24 07:45 100 MLS/HR Propofol 100 ml @ 3.804 mls/ hr Q24H IV 08/27/24 04:30 09/07/24 17:48 19.02 MLS/HR Norepinephrine Bitartrate 32 mg/ Sodium Chloride 250 ml @ 0.469 mls/ hr Q24H IV 08/27/24 13:00 09/06/24 01:01 0.469 MLS/HR Fentanyl Citrate 250 ml @ 2.5 mls/hr Q24H IV 08/30/24 20:00 09/06/24 21:06 22.5 MLS/HR Micafungin Sodium 100 mg/Sodium Chloride 100 ml @ 100 mls/hr DAILY@0900 IV 09/01/24 09:00 09/07/24 09:00 100 MLS/HR Linezolid 300 ml @ 150 mls/hr Q12HR IV 08/31/24 22:00 09/07/24 10:19 150 MLS/HR Heparin Sodium (Porcine) 5,000 units Q12HR SC 08/31/24 22:00 09/06/24 21:13 5,000 UNITS Sodium Chloride 10 ml QSHIFT@10,22 IV 08/31/24 22:00 09/07/24 10:18 10 ML Artificial Tears 2 drop Q4HR PRN EACHEYE 09/02/24 10:45 09/07/24 05:15 2 DROP Enteral Nutritional Formula 1,000 ml 15ML/HR GT 09/03/24 17:30 09/05/24 21:39 1,000 ML Diagnostic Test (Pha) 1 strip IQ4HR 09/04/24 00:00 09/07/24 20:13 1 STRIP Insulin Human Regular IQ4HR SC 09/04/24 00:00 09/07/24 20:16 4 UNITS Dextrose 50 ml UD PRN IV 09/03/24 21:00 Hydralazine HCl 10 mg Q6HP PRN IV 09/03/24 21:00 09/07/24 05:15 10 MG Meropenem 50 ml @ 17 mls/hr Q12H IV 09/05/24 00:00 09/07/24 12:22 17 MLS/HR Hydralazine HCl 50 mg Q8HR PRN PO 09/05/24 09:15 Insulin Glargine 10 units HS SC 09/06/24 22:00 09/06/24 21:13 10 UNITS Bumetanide 2.5 mg BIDD IV 09/06/24 18:00 09/07/24 18:02 2.5 MG objective General: Mechanically ventilated, sedated HEENT: Head is normocephalic and atraumatic. Pupils are equal, round, and reactive to light Neck: Supple with no cervical lymphadenopathy. Heart: Regular rate without murmur, rub, or gallop. Lungs: Bilateral crackles, most prominent on bases Abdomen: No external sign of injury. Bowel sounds present Abdomen is soft, nontender. Extremities: faint peripheral pulses. There is no clubbing, no cyanosis, and no edema. Skin: No rash. laboratory and microbiology Laboratory Tests 09/07/24 12:53 09/07/24 01:50 Test 09/07/24 12:53 Range/Units Serum Glucose 282 #H 74-106 mg/dL Problems(with codes): (1) Metabolic alkalosis (2) Diabetes type 2, uncontrolled (3) Hyponatremia (4) Hypochloremia (5) Hypokalemia (6) Gastroparesis (7) Anemia (8) Leukocytosis Prognosis Plan Protonix 40 mg IV q.12 hours Continue to monitor H&H and observe signs for any active upper GI bleeding Continue supportive care for now I will follow up patient with you Dietary Evaluation Review Recommendations by RD: Protein Supplementation, PPN/TPN Comments: Pt is at high risk of malnutrition due to prolonged vomiting leading to inadequate nutrient intake and hypermetabolic state secondary to acute inflammation. Recommendation: 1) Start PN/TPN per pharmacy 2) If GI is accessible, consider TF Pivot 1.5Cal @ 60ml/hr along with Pro-stat 1 pk TID. Start @ 10ml/hr, increase 10ml/hr Q4H until goal rate is reached. Advance TF rate slowly and gradually to prevent Refeeding syndrome. Water Flush 50ml Q4H if allowed. TF Provision --- TF at goal volume to provide 1440 ml total volume, 2160 kcal (+300 kcal via Pro-stat = 2460 kcal), 135 gm pro (+45 gm via ProStat = 180 gm), 1093 ml H20 (meets 100% est. kcal needs, 100% est. protein needs) 3) Monitor Potassium, Phosphate, Magnesium for Refeeding syndrome 4) Des 1 pk daily For DTI 5) Continue current plan of care Expected Outcomes/Goals: Blood glucose to improve Nutrient intake to meet at least 75% estimated needs FU 2-3 days Food and Nutrition Intake (Mod: <75% est energy req 7days Protein Calorie Malnutrition: Severe Plan discussed with: Other (ICU Nurse) ALDAIR YOUSSEF MD September 07, 2024 21:05
[2024-09-08] VITALS (105 sets, daily range): BP systolic 96–175; BP diastolic 60–109; PULSE 84–116; RESP 15–29; TEMP 97.9–99.2; O2SAT 93–100
[2024-09-08 04:10] LABS: Basophils # (auto) 0.1 10 ^3/uL (0-0.2); Eosinophils # (auto) 0.4 10 ^3/uL (0-0.8); Lymphocytes # (auto) 2.2 10 ^3/uL (0.4-5.4); Monocytes # (auto) 1.1 10 ^3/uL (0-1.3); Nucleated Red Blood Cells % 0.1 %
[2024-09-08 04:15] LABS: Basophils % (auto) 0.7 % (0.0-2.0); Eosinophils % (auto) 2.7 % (0.0-7.0); Hematocrit 29.9 % (41.0-53.0); Hemoglobin 10.2 g/dL (13.5-17.5); Lymphocytes % (auto) 14.5 % (10.0-50.0); Mean Corpuscular Hemoglobin 29.6 pg (28.0-32.0); Mean Corpuscular Hgb Conc. 34.2 g/dL (32.0-36.0); Mean Corpuscular Volume 86.5 fL (80.0-100.0); Monocytes % (auto) 7.6 % (0.0-12.0); Neutrophils # (auto) 11.1 10 ^3/uL (1.6-8.6); Neutrophils % (auto) 74.5 % (37.0-80.0); Platelet Count (auto) 653 10^3/uL (140-450); Red Blood Cells 3.45 10^6/uL (4.5-5.90); Red Cell Distribution Width 15.2 % (11.8-14.3); White Blood Cell 14.9 10^3/uL (4.4-10.8)
[2024-09-08 04:20] LABS: Anion Gap 12 (5-15); Carbon Dioxide 30 mmol/L (20-31); Chloride 101 mmol/L (98-107); Sodium 143 mmol/L (136-145)
[2024-09-08 04:21] LABS: Calcium 9.9 mg/dL (8.7-10.4)
[2024-09-08 04:26] LABS: BUN/Creatinine Ratio 28.1 (10.0-20.0)
[2024-09-08 04:27] LABS: Blood Urea Nitrogen 79 mg/dL (9-23); Glucose 223 mg/dL (74-106); Potassium 2.9 mmol/L (3.5-5.1)
--- NOTE | 2024-09-08 05:21 | DVH ---
EXAM: XR Chest, 1 View CLINICAL INDICATION: on mechanical ventilation TECHNIQUE: Frontal view of the chest. COMPARISON: XY CHEST XRAY 1 VIEW on DOS: 09/07/24, XY CHEST PORTABLE on DOS: 09/06/24, XY CHEST XRAY 1 VIEW on DOS: 09/05/24, XY CHEST PORTABLE on DOS: 09/04/24, XY CHEST PORTABLE on DOS: 09/04/24 FINDINGS: LUNGS AND PLEURAL SPACES: Bibasilar atelectasis or pneumonia. No pneumothorax. HEART: Unremarkable. No cardiomegaly. MEDIASTINUM: Unremarkable. Normal mediastinal contour. BONES/JOINTS: Unremarkable. No acute fracture. TUBES, LINES AND DEVICES: The endotracheal tube (ETT) is in satisfactory position. Enteric tube ti p in the stomach. OTHER FINDINGS: . . . IMPRESSION: Bibasilar atelectasis or pneumonia.
[2024-09-08] MEDS: POTASSIUM CHL 20MEQ/50ML 100 ML IV SCH (05:45)
[2024-09-08] MEDS ORDERED: SODIUM CHL 0.9% 100 ML IV ONE (05:45)
[2024-09-08 06:21] LABS: Base Excess 5.9 mmol/L (-2.0-3.0)
[2024-09-08] MEDS: POTASSIUM CHL 20MEQ/50ML 50 ML IV SCH ×2 (08:27→16:38)
[2024-09-08] MEDS: hydrALAZINE HCL 20 MG/ML VL IV ONE (12:18)
[2024-09-08 13:35] LABS: Anion Gap 11 (5-15); Carbon Dioxide 29 mmol/L (20-31); Chloride 103 mmol/L (98-107); Sodium 143 mmol/L (136-145)
[2024-09-08 13:41] LABS: BUN/Creatinine Ratio 27.2 (10.0-20.0)
[2024-09-08 13:42] LABS: Blood Urea Nitrogen 74 mg/dL (9-23); Glucose 292 mg/dL (74-106)
--- NOTE | 2024-09-08 16:19 | DVHPNRES ---
Progress Note Date Seen: September 08, 2024 Resident Creating Document: ELIO SANTOS RESIDENT Has the PT tested + for MRSA If YES, has PT been informed?: No Medical Necessity Reason Pt with a Central, PICC or Fol: Yes The following are medically ne: Central Line, Chavez Catheter Reason for chavez catheter: Strict I&O Subjective Review of Systems Patient was a 44-year-old male with a past medical history of diabetes presented to the ER with a chief complaint of intractable vomitings and altered level of consciousness. According to the sister patient has been vomiting persistently for 7-10 days before coming to the hospital. She reports that he took a shot of Ozempic before the vomiting started. While in the ER patient was altered and was not able to protect his airways following which it was decided to intubate him and put him on mechanical ventilation. Before intubation when he was laid flat, had vomiting coffee-ground and aspirated. After intubation patient underwent bronchoscopy with removal of mucus plugs from left upper and left lower lung. Past medical history: Diabetes Past surgical history: Left foot surgery Social history: Smokes 1 pack of cigarettes per day, denied alcohol or any other drug use Home medications: ?? Patient seen and examined on the bedside Sedated and on mechanical ventilation 09/07/24 failed CPAP trial 09/08/24 failed CPAP trial CPAP trial tomorrow Objective vital signs Vital Sign Date Time Temp Pulse Resp B/P (MAP) Pulse Ox O2 Delivery O2 Flow Rate FiO2 09/08/24 15:57 108 24 169/89 (115) 98 30 09/08/24 14:00 Mechanical Ventilator+ 09/08/24 12:00 98.5 98.5 Total Intake and Output 09/07/24 09/07/24 09/08/24 15:00 23:00 07:00 Intake Total 407.75 ml 374.42 ml 1243.14 ml Output Total 2700 ml 1760 ml Balance 407.75 ml -2325.58 ml -516.86 ml medications Current Medications Medications Dose Ordered Sig/Nikki Route Start Time Stop Time Status Last Admin Dose Admin Diagnostic Test (Pha) 1 strip ACHS 08/19/24 17:00 Cancel Norepinephrine Bitartrate 250 ml @ 3.75 mls/hr Q24H IV 08/19/24 17:15 Cancel Midazolam HCl 50 ml @ 1 mls/hr Q24H IV 08/19/24 17:15 09/06/24 23:31 5 MLS/HR Ipratropium [place] 0.5 mg Q6HR NEB 08/19/24 18:00 09/08/24 11:41 0.5 MG Albuterol 2.5 mg Q6HR NEB 08/19/24 18:00 09/08/24 11:41 2.5 MG Pantoprazole Sodium 40 mg BID IV 08/20/24 22:00 09/08/24 09:58 40 MG Acetaminophen 650 mg Q6HP PRN [place] 08/21/24 01:45 08/23/24 03:36 650 MG Epoetin Aquilino-epbx 10,000 unit TUTHSA@2100 SC 08/26/24 21:00 09/05/24 21:03 10,000 UNIT Albumin Human 100 ml @ 100 mls/hr PRN PRN IV 08/26/24 06:45 08/27/24 07:45 100 MLS/HR Propofol 100 ml @ 3.804 mls/ hr Q24H IV 08/27/24 04:30 09/08/24 03:00 19.02 MLS/HR Norepinephrine Bitartrate 32 mg/ Sodium Chloride 250 ml @ 0.469 mls/ hr Q24H IV 08/27/24 13:00 09/06/24 01:01 0.469 MLS/HR Fentanyl Citrate 250 ml @ 2.5 mls/hr Q24H IV 08/30/24 20:00 09/08/24 00:00 10 MLS/HR Micafungin Sodium 100 mg/Sodium Chloride 100 ml @ 100 mls/hr DAILY@0900 IV 09/01/24 09:00 09/08/24 08:27 100 MLS/HR Linezolid 300 ml @ 150 mls/hr Q12HR IV 08/31/24 22:00 09/08/24 09:59 150 MLS/HR Heparin Sodium (Porcine) 5,000 units Q12HR SC 08/31/24 22:00 09/07/24 21:35 5,000 UNITS Sodium Chloride 10 ml QSHIFT@10,22 IV 08/31/24 22:00 09/08/24 09:58 10 ML Artificial Tears 2 drop Q4HR PRN EACHEYE 09/02/24 10:45 09/07/24 05:15 2 DROP Enteral Nutritional Formula 1,000 ml 15ML/HR GT 09/03/24 17:30 09/05/24 21:39 1,000 ML Diagnostic Test (Pha) 1 strip IQ4HR 09/04/24 00:00 09/08/24 16:13 1 STRIP Insulin Human Regular IQ4HR SC 09/04/24 00:00 09/08/24 16:12 8 UNITS Dextrose 50 ml UD PRN IV 09/03/24 21:00 Meropenem 50 ml @ 17 mls/hr Q12H IV 09/05/24 00:00 09/08/24 12:15 17 MLS/HR Hydralazine HCl 50 mg Q8HR PRN PO 09/05/24 09:15 Insulin Glargine 10 units HS SC 09/06/24 22:00 09/07/24 21:33 10 UNITS Bumetanide 2.5 mg BIDD IV 09/06/24 18:00 09/08/24 05:47 2.5 MG Hydralazine HCl 20 mg Q6HP PRN IV 09/08/24 11:45 Potassium Chloride 100 ml @ 50 mls/hr Q2H IV 09/08/24 16:00 09/08/24 21:59 UNV Examination Examination: Constitutional: Patient sedated and on mechanical ventilation, RASS -2 Gen - mild conjuctival pallor, no icterus, no cyanosis, no clubbing, no LAD, 1+ edema in the feet . Skin - Patients skin is warm and dry. HEENT - normocephalic, atraumatic, moist mucous membranes. Neck - full ROM, no LAD, no jvd Pulmonary - B/L air entry present, diffuse rales, no wheezing, no stridor. cardiovascular - regular S1,S2 heard, no added sounds, no murmurs heard. GI - soft abdomen. no hepatospleenomegaly. bowel sounds hypoactive sacrum- ulcer seen , stage 1 ulcer with bloody oozing in gluteal fold Neurological - patient was sedated and on mechanical ventilation. Gag reflex present, pupils equal and reactive laboratory and microbiology Laboratory Tests 09/08/24 13:11 09/08/24 03:05 Test 09/08/24 13:11 Range/Units Serum Glucose 292 H 74-106 mg/dL Microbiology Date/Time Source Procedure Growth Status 09/04/24 10:19 Blood Blood Culture - Preliminary NO GROWTH AFTER 72 HOURS OF INCUBATION. Resulted 08/31/24 18:46 Sacrum Gram Stain - Final Complete 08/31/24 18:46 Wound Culture - Final Enterococcus faecalis Presumptive Mayr albicans Complete 08/31/24 15:08 Sputum Gram Stain - Final Complete 08/31/24 15:08 Respiratory Culture - Final Presumptive Mary albicans Complete 08/31/24 14:00 Urine - [place] Urine Culture - Final Complete Labs and/or images reviewed: Labs reviewed by me, Image(s) reviewed by me Problem List/Assessment/Plan Problem List/Assessment/Plan Assessment and plan: Neurology Acute metabolic encephalopathy likely due to sepsis/HHS - on mechanical ventilation - CPAP trial tomorrow Respiratory Acute hypoxic respiratory failure Probable aspiration pneumonia ARDS - on mechanical ventilation with FiO2 30%, peep 5 - chest x-ray shows bilateral patchy opacities - ABG compensated - duonebs q6hr - IV antibiotics meropenem, linezolid, micafungin - sputum culture showed growth of yeast Cardiovascular Shock due to sepsis possibly from aspiration Acute on chronic heart failure with reduced ejection fraction - echo showed LVEF< 40% - off norepinephrine Infectious disease Septic shock likely due to aspiration pneumonia Infected Sacral ulcer, unstageable pressure ulcer - on IV antibiotics - culture from sacral ulcer growing enterococcus - blood culture showed no growth - on linezolid Nephrology Metabolic alkalosis likely from intractable vomiting, resolved KATE on CKD likely due to be VMN from dehydration - on hemodialysis - urine output improved - IV bumetanide 2.5 mg b.i.d. - Epotein alpha-epbx per protocol GI ?Gastroparesis ?Upper GI bleed - KUB shows nonobstructive bowel gas pattern - Protonix b.i.d. - 4 units of PRBC given, H&H stable - GI on board - CT with PO contrast showed no obstruction. - FOBT positive - Dobbhoff tube with enteral feeding Glucerna Endocrinology Uncontrolled diabetes mellitus with a hyperglycemia Morbid obesity - on insulin sliding scale - lantus 10 U Diet: dobhoff tube DVT prophylaxis: heparin held d/t GI bleed, SCD Left upper arm PICC placed on 08/31 Right femoral dialysis catheter placed on 08/24 Chavez's catheter Goals of care discussed with the patient's sister Sheree for over 27 mins. Full code Critical care time spent excluding procedures: 81 minutes Plan discussed with Dr. Flowers Plan discussed with: Other (RN and sister) My Orders My Orders Orders - ELIO SANTOS RESIDENT Procedure Category Date Status Time Chest Portable XY 09/08/24 Resulted 04:00 Abg W/ Co-Ox RT 09/08/24 Logged 04:00 Hydralazine Injection PHA 09/08/24 In Process (Apresoline Inject 11:45 Potassium Chl PHA 09/08/24 Logged 20meq/100ml 16:00 Dietary Evaluation Review Recommendations by RD: Protein Supplementation, PPN/TPN Comments: Pt is at high risk of malnutrition due to prolonged vomiting leading to inadequate nutrient intake and hypermetabolic state secondary to acute inflammation. Recommendation: 1) Start PN/TPN per pharmacy 2) If GI is accessible, consider TF Pivot 1.5Cal @ 60ml/hr along with Pro-stat 1 pk TID. Start @ 10ml/hr, increase 10ml/hr Q4H until goal rate is reached. Advance TF rate slowly and gradually to prevent Refeeding syndrome. Water Flush 50ml Q4H if allowed. TF Provision --- TF at goal volume to provide 1440 ml total volume, 2160 kcal (+300 kcal via Pro-stat = 2460 kcal), 135 gm pro (+45 gm via ProStat = 180 gm), 1093 ml H20 (meets 100% est. kcal needs, 100% est. protein needs) 3) Monitor Potassium, Phosphate, Magnesium for Refeeding syndrome 4) Des 1 pk daily For DTI 5) Continue current plan of care Expected Outcomes/Goals: Blood glucose to improve Nutrient intake to meet at least 75% estimated needs FU 2-3 days Food and Nutrition Intake (Mod: <75% est energy req 7days Protein Calorie Malnutrition: Severe Date of Service: September 08, 2024 Billing Provider: ARMANDO FLOWERS MD Common Visit Codes: [id number] CARE 30-74 MIN, [id number] CARE-EACH +30MIN ELIO SANTOS September 08, 2024 16:19 ARMANDO FLOWERS MD September 09, 2024 14:54
--- NOTE | 2024-09-08 20:55 | DVHPN2 ---
Progress Note Date Seen: September 08, 2024 Has the PT tested + for MRSA If YES, has PT been informed?: No Medical Necessity Reason Pt with a Central, PICC or Fol: Yes The following are medically ne: Central Line, Chavez Catheter Reason for chavez catheter: Strict I&O Subjective Patient reports: Other (no events) Review of Systems: Deferred Objective vital signs Vital Sign Date Time Temp Pulse Resp B/P (MAP) Pulse Ox O2 Delivery O2 Flow Rate FiO2 09/08/24 20:17 103 24 144/91 (108) 97 30 09/08/24 20:00 Mechanical Ventilator+ 09/08/24 20:00 99.0 99.0 Total Intake and Output 09/07/24 09/07/24 09/08/24 15:00 23:00 07:00 Intake Total 407.75 ml 374.42 ml 1243.14 ml Output Total 2700 ml 1760 ml Balance 407.75 ml -2325.58 ml -516.86 ml medications Current Medications Medications Dose Ordered Sig/Nikki Route Start Time Stop Time Status Last Admin Dose Admin Diagnostic Test (Pha) 1 strip ACHS 08/19/24 17:00 Cancel Norepinephrine Bitartrate 250 ml @ 3.75 mls/hr Q24H IV 08/19/24 17:15 Cancel Midazolam HCl 50 ml @ 1 mls/hr Q24H IV 08/19/24 17:15 09/06/24 23:31 5 MLS/HR Ipratropium [place] 0.5 mg Q6HR NEB 08/19/24 18:00 09/08/24 18:39 0.5 MG Albuterol 2.5 mg Q6HR NEB 08/19/24 18:00 09/08/24 18:39 2.5 MG Pantoprazole Sodium 40 mg BID IV 08/20/24 22:00 09/08/24 09:58 40 MG Acetaminophen 650 mg Q6HP PRN [place] 08/21/24 01:45 08/23/24 03:36 650 MG Epoetin Aquilino-epbx 10,000 unit TUTHSA@2100 SC 08/26/24 21:00 09/05/24 21:03 10,000 UNIT Albumin Human 100 ml @ 100 mls/hr PRN PRN IV 08/26/24 06:45 08/27/24 07:45 100 MLS/HR Propofol 100 ml @ 3.804 mls/ hr Q24H IV 08/27/24 04:30 09/08/24 03:00 19.02 MLS/HR Norepinephrine Bitartrate 32 mg/ Sodium Chloride 250 ml @ 0.469 mls/ hr Q24H IV 08/27/24 13:00 09/06/24 01:01 0.469 MLS/HR Fentanyl Citrate 250 ml @ 2.5 mls/hr Q24H IV 08/30/24 20:00 09/08/24 00:00 10 MLS/HR Micafungin Sodium 100 mg/Sodium Chloride 100 ml @ 100 mls/hr DAILY@0900 IV 09/01/24 09:00 09/08/24 08:27 100 MLS/HR Linezolid 300 ml @ 150 mls/hr Q12HR IV 08/31/24 22:00 09/08/24 09:59 150 MLS/HR Heparin Sodium (Porcine) 5,000 units Q12HR SC 08/31/24 22:00 09/07/24 21:35 5,000 UNITS Sodium Chloride 10 ml QSHIFT@10,22 IV 08/31/24 22:00 09/08/24 09:58 10 ML Artificial Tears 2 drop Q4HR PRN EACHEYE 09/02/24 10:45 09/07/24 05:15 2 DROP Enteral Nutritional Formula 1,000 ml 15ML/HR GT 09/03/24 17:30 09/05/24 21:39 1,000 ML Diagnostic Test (Pha) 1 strip IQ4HR 09/04/24 00:00 09/08/24 16:13 1 STRIP Insulin Human Regular IQ4HR SC 09/04/24 00:00 09/08/24 16:12 8 UNITS Dextrose 50 ml UD PRN IV 09/03/24 21:00 Meropenem 50 ml @ 17 mls/hr Q12H IV 09/05/24 00:00 09/08/24 12:15 17 MLS/HR Hydralazine HCl 50 mg Q8HR PRN PO 09/05/24 09:15 Insulin Glargine 10 units HS SC 09/06/24 22:00 09/07/24 21:33 10 UNITS Bumetanide 2.5 mg BIDD IV 09/06/24 18:00 09/08/24 17:58 2.5 MG Hydralazine HCl 20 mg Q6HP PRN IV 09/08/24 11:45 Potassium Chloride 50 ml @ 25 mls/hr Q2H IV 09/08/24 16:30 09/08/24 22:29 09/08/24 17:59 25 MLS/HR Examination: GENERAL:Abnormal, LUNGS:Abnormal, MSK:Abnormal, NEURO:Abnormal laboratory and microbiology Laboratory Tests 09/08/24 13:11 09/08/24 03:05 Test 09/08/24 13:11 Range/Units Serum Glucose 292 H 74-106 mg/dL Microbiology Date/Time Source Procedure Growth Status 09/04/24 10:19 Blood Blood Culture - Preliminary NO GROWTH AFTER 72 HOURS OF INCUBATION. Resulted 08/31/24 18:46 Sacrum Gram Stain - Final Complete 08/31/24 18:46 Wound Culture - Final Enterococcus faecalis Presumptive Mary albicans Complete 08/31/24 15:08 Sputum Gram Stain - Final Complete 08/31/24 15:08 Respiratory Culture - Final Presumptive Mary albicans Complete 08/31/24 14:00 Urine - [place] Urine Culture - Final Complete Problem List/Assessment/Plan Problem List/Assessment/Plan Acute kidney injury in the setting of hypotension and volume depletion -> ATN Uncontrolled diabetes Ventilator-dependent hypoxic acute respiratory failure due to aspiration pneumonia gastric obstruction vs Illeus w/ persistent vomiting carotid artery injury due to temp HD cath s/p vascular surgery repair femoral tunnel HD catheter placed by vascular hyperkalemia Recommendations hold dialysis Urine output is better with diuretics Had last dialysis on 09/07/2024 Monitor for renal recovery bumex Plan discussed with: Other (sister) Dietary Evaluation Review Recommendations by RD: Protein Supplementation, PPN/TPN Comments: Pt is at high risk of malnutrition due to prolonged vomiting leading to inadequate nutrient intake and hypermetabolic state secondary to acute inflammation. Recommendation: 1) Start PN/TPN per pharmacy 2) If GI is accessible, consider TF Pivot 1.5Cal @ 60ml/hr along with Pro-stat 1 pk TID. Start @ 10ml/hr, increase 10ml/hr Q4H until goal rate is reached. Advance TF rate slowly and gradually to prevent Refeeding syndrome. Water Flush 50ml Q4H if allowed. TF Provision --- TF at goal volume to provide 1440 ml total volume, 2160 kcal (+300 kcal via Pro-stat = 2460 kcal), 135 gm pro (+45 gm via ProStat = 180 gm), 1093 ml H20 (meets 100% est. kcal needs, 100% est. protein needs) 3) Monitor Potassium, Phosphate, Magnesium for Refeeding syndrome 4) Des 1 pk daily For DTI 5) Continue current plan of care Expected Outcomes/Goals: Blood glucose to improve Nutrient intake to meet at least 75% estimated needs FU 2-3 days Food and Nutrition Intake (Mod: <75% est energy req 7days Protein Calorie Malnutrition: Severe KASSANDRA VARGAS MD September 08, 2024 20:55
--- NOTE | 2024-09-08 21:51 | DVHPN2 ---
Progress Note - Dictate Date Seen: September 08, 2024 Has the PT tested + for MRSA If YES, has PT been informed?: No Medical Necessity Reason Pt with a Central, PICC or Fol: Yes The following are medically ne: Central Line, Chavez Catheter Reason for chavez catheter: Strict I&O Subjective Patient is getting enteral tube feedings through the Dobbhoff tube into the small bowel at 60 mL/hour low intermittent suction is ongoing from the NG tube; NG tube output somewhat dark in color Patient still has gastric residuals of about 400 mL Patient is having bowel movements Patient underwent CPAP trial today vital signs Vital Sign Date Time Temp Pulse Resp B/P (MAP) Pulse Ox O2 Delivery O2 Flow Rate FiO2 09/08/24 20:17 103 24 144/91 (108) 97 30 09/08/24 20:00 Mechanical Ventilator+ 09/08/24 20:00 99.0 99.0 Total Intake and Output 09/07/24 09/07/24 09/08/24 15:00 23:00 07:00 Intake Total 407.75 ml 374.42 ml 1243.14 ml Output Total 2700 ml 1760 ml Balance 407.75 ml -2325.58 ml -516.86 ml medications Current Medications Medications Dose Ordered Sig/Nikki Route Start Time Stop Time Status Last Admin Dose Admin Diagnostic Test (Pha) 1 strip ACHS 08/19/24 17:00 Cancel Norepinephrine Bitartrate 250 ml @ 3.75 mls/hr Q24H IV 08/19/24 17:15 Cancel Midazolam HCl 50 ml @ 1 mls/hr Q24H IV 08/19/24 17:15 09/06/24 23:31 5 MLS/HR Ipratropium [place] 0.5 mg Q6HR NEB 08/19/24 18:00 09/08/24 18:39 0.5 MG Albuterol 2.5 mg Q6HR NEB 08/19/24 18:00 09/08/24 18:39 2.5 MG Pantoprazole Sodium 40 mg BID IV 08/20/24 22:00 09/08/24 09:58 40 MG Acetaminophen 650 mg Q6HP PRN [place] 08/21/24 01:45 08/23/24 03:36 650 MG Epoetin Aquilino-epbx 10,000 unit TUTHSA@2100 [place] 08/26/24 21:00 5//25 21:03 10,000 UNIT Albumin Human 100 ml @ 100 mls/hr PRN PRN IV 08/26/24 06:45 08/27/24 07:45 100 MLS/HR Propofol 100 ml @ 3.804 mls/ hr Q24H IV 08/27/24 04:30 09/08/24 03:00 19.02 MLS/HR Norepinephrine Bitartrate 32 mg/ Sodium Chloride 250 ml @ 0.469 mls/ hr Q24H IV 08/27/24 13:00 09/06/24 01:01 0.469 MLS/HR Fentanyl Citrate 250 ml @ 2.5 mls/hr Q24H IV 08/30/24 20:00 09/08/24 00:00 10 MLS/HR Micafungin Sodium 100 mg/Sodium Chloride 100 ml @ 100 mls/hr DAILY@0900 IV 09/01/24 09:00 09/08/24 08:27 100 MLS/HR Linezolid 300 ml @ 150 mls/hr Q12HR IV 08/31/24 22:00 09/08/24 09:59 150 MLS/HR Heparin Sodium (Porcine) 5,000 units Q12HR SC 08/31/24 22:00 09/07/24 21:35 5,000 UNITS Sodium Chloride 10 ml QSHIFT@10,22 IV 08/31/24 22:00 09/08/24 09:58 10 ML Artificial Tears 2 drop Q4HR PRN EACHEYE 09/02/24 10:45 09/07/24 05:15 2 DROP Enteral Nutritional Formula 1,000 ml 15ML/HR GT 09/03/24 17:30 09/05/24 21:39 1,000 ML Diagnostic Test (Pha) 1 strip IQ4HR 09/04/24 00:00 09/08/24 19:36 1 STRIP Insulin Human Regular IQ4HR SC 09/04/24 00:00 09/08/24 19:38 6 UNITS Dextrose 50 ml UD PRN IV 09/03/24 21:00 Meropenem 50 ml @ 17 mls/hr Q12H IV 09/05/24 00:00 09/08/24 12:15 17 MLS/HR Hydralazine HCl 50 mg Q8HR PRN PO 09/05/24 09:15 Insulin Glargine 10 units HS SC 09/06/24 22:00 09/07/24 21:33 10 UNITS Bumetanide 2.5 mg BIDD IV 09/06/24 18:00 09/08/24 17:58 2.5 MG Hydralazine HCl 20 mg Q6HP PRN IV 09/08/24 11:45 Potassium Chloride 50 ml @ 25 mls/hr Q2H IV 09/08/24 16:30 09/08/24 22:29 09/08/24 21:20 25 MLS/HR objective General: Mechanically ventilated, sedated HEENT: Head is normocephalic and atraumatic. Pupils are equal, round, and reactive to light Neck: Supple with no cervical lymphadenopathy. Heart: Regular rate without murmur, rub, or gallop. Lungs: Bilateral crackles, most prominent on bases Abdomen: No external sign of injury. Bowel sounds present Abdomen is soft, nontender. Extremities: faint peripheral pulses. There is no clubbing, no cyanosis, and no edema. Skin: No rash. laboratory and microbiology Laboratory Tests 09/08/24 13:11 09/08/24 03:05 Test 09/08/24 13:11 Range/Units Serum Glucose 292 H 74-106 mg/dL Problems(with codes): (1) Gastroparesis (2) Leukocytosis (3) Anemia (4) Metabolic alkalosis (5) Diabetes type 2, uncontrolled Prognosis Plan Continue supportive care Continue tube feedings via the Dobbhoff Patient will have a repeat CPAP trial tomorrow and sedation vacation Dietary Evaluation Review Recommendations by RD: Protein Supplementation, PPN/TPN Comments: Pt is at high risk of malnutrition due to prolonged vomiting leading to inadequate nutrient intake and hypermetabolic state secondary to acute inflammation. Recommendation: 1) Start PN/TPN per pharmacy 2) If GI is accessible, consider TF Pivot 1.5Cal @ 60ml/hr along with Pro-stat 1 pk TID. Start @ 10ml/hr, increase 10ml/hr Q4H until goal rate is reached. Advance TF rate slowly and gradually to prevent Refeeding syndrome. Water Flush 50ml Q4H if allowed. TF Provision --- TF at goal volume to provide 1440 ml total volume, 2160 kcal (+300 kcal via Pro-stat = 2460 kcal), 135 gm pro (+45 gm via ProStat = 180 gm), 1093 ml H20 (meets 100% est. kcal needs, 100% est. protein needs) 3) Monitor Potassium, Phosphate, Magnesium for Refeeding syndrome 4) Des 1 pk daily For DTI 5) Continue current plan of care Expected Outcomes/Goals: Blood glucose to improve Nutrient intake to meet at least 75% estimated needs FU 2-3 days Food and Nutrition Intake (Mod: <75% est energy req 7days Protein Calorie Malnutrition: Severe Plan discussed with: Other (ICU Nurse) ALDAIR YOUSSEF MD September 08, 2024 21:51
[2024-09-09] VITALS (88 sets, daily range): BP systolic 87–172; BP diastolic 49–101; PULSE 86–137; RESP 13–47; TEMP 98.7–99.5; O2SAT 94–100
[2024-09-09 03:36] LABS: Basophils # (auto) 0.2 10 ^3/uL (0-0.2); Eosinophils # (auto) 0.1 10 ^3/uL (0-0.8); Monocytes # (auto) 1.2 10 ^3/uL (0-1.3)
[2024-09-09 03:40] LABS: Basophils % (auto) 1.5 % (0.0-2.0); Eosinophils % (auto) 0.7 % (0.0-7.0); Hematocrit 32.1 % (41.0-53.0); Lymphocytes # (auto) 2.1 10 ^3/uL (0.4-5.4); Lymphocytes % (auto) 13.3 % (10.0-50.0); Mean Corpuscular Hemoglobin 29.7 pg (28.0-32.0); Mean Corpuscular Hgb Conc. 34.4 g/dL (32.0-36.0); Mean Corpuscular Volume 86.5 fL (80.0-100.0); Monocytes % (auto) 7.5 % (0.0-12.0); Platelet Count (auto) 733 10^3/uL (140-450); Red Blood Cells 3.71 10^6/uL (4.5-5.90); Red Cell Distribution Width 15.4 % (11.8-14.3); White Blood Cell 15.6 10^3/uL (4.4-10.8)
[2024-09-09 03:46] LABS: Anion Gap 11 (5-15); Carbon Dioxide 31 mmol/L (20-31); Chloride 104 mmol/L (98-107)
[2024-09-09 03:47] LABS: Potassium 3.5 mmol/L (3.5-5.1); Sodium 146 mmol/L (136-145)
[2024-09-09 03:48] LABS: Calcium 9.4 mg/dL (8.7-10.4)
[2024-09-09 03:53] LABS: BUN/Creatinine Ratio 29.4 (10.0-20.0)
[2024-09-09 04:23] LABS: Glucose 331 mg/dL (74-106)
[2024-09-09 04:24] LABS: Blood Urea Nitrogen 82 mg/dL (9-23)
--- NOTE | 2024-09-09 05:19 | DVH ---
INDICATION: Mechanical ventilation TECHNIQUE: Frontal view of the chest. COMPARISON: XY CHEST PORTABLE on DOS: 09/08/24, XY CHEST XRAY 1 VIEW on DOS: 09/07/24, XY CHEST PORTABLE on DOS: 09/06/24, XY CHEST XRAY 1 VIEW on DOS: 09/05/24, XY CHEST PORTABLE on DOS: 09/04/24, XY CHEST SARAH BLE on DOS: 09/08/24 FINDINGS: LUNGS AND PLEURAL SPACES: Bibasilar atelectasis or pneumonia. No pneumothorax. HEART: Unremarkable. No cardiomegaly. MEDIASTINUM: Unremarkable. Normal mediastinal contour. BONES/JOINTS: Unremarkable. No acute fracture. TUBES, LINES AND DEVICES: The endotracheal tube (ETT) is in satisfactory position. Enteric tube ti p in the stomach. IMPRESSION: Bibasilar atelectasis or pneumonia.
[2024-09-09 06:26] LABS: Base Excess 6.1 mmol/L (-2.0-3.0)
[2024-09-09] MEDS: ACCU-CHEK COMFORT CURVE STRIP VI SCH (08:00)
[2024-09-09] MEDS: InsuLIN REG 1unit/0.01ml Soln (100units/ml) SC SCH (08:04)
[2024-09-09] MEDS: hydrALAZINE HCL 20 MG/ML VL IV PRN (09:57)
--- NOTE | 2024-09-09 10:01 | DVHPNRES ---
Progress Note Date Seen: September 09, 2024 Resident Creating Document: ELIO SANTOS RESIDENT Has the PT tested + for MRSA If YES, has PT been informed?: No Medical Necessity Reason Pt with a Central, PICC or Fol: Yes The following are medically ne: Central Line, Chavez Catheter Reason for chavez catheter: Strict I&O Subjective Review of Systems Patient was a 44-year-old male with a past medical history of diabetes presented to the ER with a chief complaint of intractable vomitings and altered level of consciousness. According to the sister patient has been vomiting persistently for 7-10 days before coming to the hospital. She reports that he took a shot of Ozempic before the vomiting started. While in the ER patient was altered and was not able to protect his airways following which it was decided to intubate him and put him on mechanical ventilation. Before intubation when he was laid flat, had vomiting coffee-ground and aspirated. After intubation patient underwent bronchoscopy with removal of mucus plugs from left upper and left lower lung. Past medical history: Diabetes Past surgical history: Left foot surgery Social history: Smokes 1 pack of cigarettes per day, denied alcohol or any other drug use Home medications: ?? Patient seen and examined on the bedside Sedated and on mechanical ventilation 09/07/24 failed CPAP trial 09/08/24 failed CPAP trial 09/09/24 failed CPAP trial Consulted Surgery for tracheotomy tomorrow Objective vital signs Vital Sign Date Time Temp Pulse Resp B/P (MAP) Pulse Ox O2 Delivery O2 Flow Rate FiO2 09/09/24 09:57 184/112 09/09/24 09:15 116 28 98 09/09/24 09:00 30 09/09/24 08:00 Mechanical Ventilator+ 09/09/24 05:45 98.9 98.9 Total Intake and Output 09/08/24 09/08/24 09/09/24 15:00 23:00 07:00 Intake Total 483.01 ml 251.76 ml 1152.940 ml Output Total 2800 ml 1775 ml Balance 483.01 ml -2548.24 ml -622.060 ml medications Current Medications Medications Dose Ordered Sig/Nikki Route Start Time Stop Time Status Last Admin Dose Admin Diagnostic Test (Pha) 1 strip ACHS 08/19/24 17:00 Cancel Norepinephrine Bitartrate 250 ml @ 3.75 mls/hr Q24H IV 08/19/24 17:15 Cancel Midazolam HCl 50 ml @ 1 mls/hr Q24H IV 08/19/24 17:15 09/06/24 23:31 5 MLS/HR Ipratropium [place] 0.5 mg Q6HR NEB 08/19/24 18:00 09/09/24 06:12 0.5 MG Albuterol 2.5 mg Q6HR NEB 08/19/24 18:00 09/09/24 06:12 2.5 MG Pantoprazole Sodium 40 mg BID IV 08/20/24 22:00 09/09/24 09:40 40 MG Acetaminophen 650 mg Q6HP PRN [place] 08/21/24 01:45 08/23/24 03:36 650 MG Epoetin Aquilino-epbx 10,000 unit TUTHSA@2100 [place] 08/26/24 21:00 09/05/24 21:03 10,000 UNIT Albumin Human 100 ml @ 100 mls/hr PRN PRN IV 08/26/24 06:45 08/27/24 07:45 100 MLS/HR Propofol 100 ml @ 3.804 mls/ hr Q24H IV 08/27/24 04:30 09/08/24 03:00 19.02 MLS/HR Norepinephrine Bitartrate 32 mg/ Sodium Chloride 250 ml @ 0.469 mls/ hr Q24H IV 08/27/24 13:00 09/06/24 01:01 0.469 MLS/HR Fentanyl Citrate 250 ml @ 2.5 mls/hr Q24H IV 08/30/24 20:00 09/08/24 00:00 10 MLS/HR Micafungin Sodium 100 mg/Sodium Chloride 100 ml @ 100 mls/hr DAILY@0900 IV 09/01/24 09:00 09/09/24 08:03 100 MLS/HR Linezolid 300 ml @ 150 mls/hr Q12HR IV 08/31/24 22:00 09/09/24 09:40 150 MLS/HR Heparin Sodium (Porcine) 5,000 units Q12HR SC 08/31/24 22:00 09/09/24 09:41 5,000 UNITS Sodium Chloride 10 ml QSHIFT@ IV 08/31/24 22:00 09/09/24 09:51 10 ML Artificial Tears 2 drop Q4HR PRN EACHEYE 09/02/24 10:45 09/07/24 05:15 2 DROP Dextrose 50 ml UD PRN IV 09/03/24 21:00 Meropenem 50 ml @ 17 mls/hr Q12H IV 09/05/24 00:00 09/09/24 00:00 17 MLS/HR Hydralazine HCl 50 mg Q8HR PRN PO 09/05/24 09:15 Bumetanide 2.5 mg BIDD IV 09/06/24 18:00 09/09/24 05:48 2.5 MG Hydralazine HCl 20 mg Q6HP PRN IV 09/08/24 11:45 09/09/24 09:57 20 MG Enteral Nutritional Formula 1,000 ml 60ML/HR GT 09/08/24 22:15 Insulin Human Regular AC SC 09/09/24 07:00 09/09/24 08:04 9 UNITS Insulin Glargine 15 units HS SC 09/09/24 22:00 Diagnostic Test (Pha) 1 strip ACHS 09/09/24 07:00 09/09/24 08:00 1 STRIP Examination Examination: Constitutional: Patient sedated and on mechanical ventilation, RASS -2 Gen - mild conjuctival pallor, no icterus, no cyanosis, no clubbing, no LAD, 1+ edema in the feet . Skin - Patients skin is warm and dry. HEENT - normocephalic, atraumatic, moist mucous membranes. Neck - full ROM, no LAD, no jvd Pulmonary - B/L air entry present, diffuse rales, no wheezing, no stridor. cardiovascular - regular S1,S2 heard, no added sounds, no murmurs heard. GI - soft abdomen. no hepatospleenomegaly. bowel sounds hypoactive sacrum- ulcer seen , stage 1 ulcer with bloody oozing in gluteal fold Neurological - patient was sedated and on mechanical ventilation. Gag reflex present, pupils equal and reactive laboratory and microbiology Laboratory Tests 09/09/24 03:00 Test 09/09/24 03:00 Range/Units Serum Glucose 331 H 74-106 mg/dL Microbiology Date/Time Source Procedure Growth Status 09/04/24 10:19 Blood Blood Culture - Preliminary NO GROWTH AFTER 72 HOURS OF INCUBATION. Resulted 08/31/24 18:46 Sacrum Gram Stain - Final Complete 08/31/24 18:46 Wound Culture - Final Enterococcus faecalis Presumptive Mary albicans Complete 08/31/24 15:08 Sputum Gram Stain - Final Complete 08/31/24 15:08 Respiratory Culture - Final Presumptive Mary albicans Complete 08/31/24 14:00 Urine - [place] Urine Culture - Final Complete Labs and/or images reviewed: Labs reviewed by me, Image(s) reviewed by me Problem List/Assessment/Plan Problem List/Assessment/Plan Assessment and plan: Neurology Acute metabolic encephalopathy likely due to sepsis/HHS - on mechanical ventilation - Failed CPAP trial for three consecutive days - Consulted Surgery for tracheostomy Respiratory Acute hypoxic respiratory failure Probable aspiration pneumonia ARDS - on mechanical ventilation with FiO2 30%, peep 5 - chest x-ray shows bilateral patchy opacities - ABG compensated - duonebs q6hr - IV antibiotics meropenem, linezolid, micafungin - sputum culture showed growth of yeast Cardiovascular Shock due to sepsis possibly from aspiration Acute on chronic heart failure with reduced ejection fraction - echo showed LVEF< 40% - off norepinephrine Infectious disease Septic shock likely due to aspiration pneumonia Infected Sacral ulcer, unstageable pressure ulcer - on IV antibiotics - culture from sacral ulcer growing enterococcus - blood culture showed no growth - on linezolid Nephrology Metabolic alkalosis likely from intractable vomiting, resolved KATE on CKD likely due to be VMN from dehydration - on hemodialysis - urine output improved - IV bumetanide 2 mg b.i.d. - Epotein alpha-epbx per protocol GI ?Gastroparesis ?Upper GI bleed - KUB shows nonobstructive bowel gas pattern - Protonix b.i.d. - 4 units of PRBC given, H&H stable - GI on board - CT with PO contrast showed no obstruction. - FOBT positive - Dobbhoff tube with enteral feeding Glucerna Endocrinology Uncontrolled diabetes mellitus with a hyperglycemia Morbid obesity - on insulin sliding scale - lantus 25 unit HS Diet: dobhoff tube DVT prophylaxis: heparin held d/t GI bleed, SCD Left upper arm PICC placed on 08/31 Right femoral dialysis catheter placed on 08/24 Chavez's catheter Goals of care discussed with the patient's sister Sheree for over 27 mins. Full code Critical care time spent including CPAP trial : 84 minutes Plan discussed with Dr. Kimberly Plan discussed with: Other (RN) My Orders My Orders Orders - ELIO SANTOS RESIDENT Procedure Category Date Status Time Hydralazine Injection PHA 09/08/24 In Process (Apresoline Inject 11:45 Chest Portable XY 09/09/24 Resulted 04:00 Abg W/ Co-Ox RT 09/09/24 Logged 04:00 Insulin R (Human) PHA 09/09/24 In Process (Insulin R) 07:00 Insulin Lantus PHA 09/09/24 In Process (Glargine) (Lantus) 22:00 Cpap Trial For Am ORDERS 09/09/24 Transmitted 08:34 Ventilator Orders RT 09/09/24 Transmitted 09:50 Dietary Evaluation Review Recommendations by RD: Protein Supplementation, PPN/TPN Comments: Pt is at high risk of malnutrition due to prolonged vomiting leading to inadequate nutrient intake and hypermetabolic state secondary to acute inflammation. Recommendation: 1) Start PN/TPN per pharmacy 2) If GI is accessible, consider TF Pivot 1.5Cal @ 60ml/hr along with Pro-stat 1 pk TID. Start @ 10ml/hr, increase 10ml/hr Q4H until goal rate is reached. Advance TF rate slowly and gradually to prevent Refeeding syndrome. Water Flush 50ml Q4H if allowed. TF Provision --- TF at goal volume to provide 1440 ml total volume, 2160 kcal (+300 kcal via Pro-stat = 2460 kcal), 135 gm pro (+45 gm via ProStat = 180 gm), 1093 ml H20 (meets 100% est. kcal needs, 100% est. protein needs) 3) Monitor Potassium, Phosphate, Magnesium for Refeeding syndrome 4) Des 1 pk daily For DTI 5) Continue current plan of care Expected Outcomes/Goals: Blood glucose to improve Nutrient intake to meet at least 75% estimated needs FU 2-3 days Food and Nutrition Intake (Mod: <75% est energy req 7days Protein Calorie Malnutrition: Severe Date of Service: September 09, 2024 Billing Provider: ARMANDO FLOWERS MD Common Visit Codes: 16162-[id number] CARE 30-74 MIN, 64970-[id number] CARE-EACH +30MIN ELIO SANTOS September 09, 2024 10:01 ARMANDO FLOWERS MD September 10, 2024 11:03
[2024-09-09] MEDS ORDERED: INSULIN LANTUS (GLARGINE) 1 /0.01ml (100units/ml) SC SCH ×2 (15:45→22:00)
[2024-09-09 16:01] LABS: Urine Bacteria None Seen /hpf (None Seen)
[2024-09-09 16:11] LABS: Urine Blood 2+ /uL (Negative); Urine Clarity Clear (Clear); Urine Color Light-Yellow (Yellow); Urine Hyaline Cast FEW /lpf (0 - 2); Urine Protein, UAD 1+ (Negative); Urine Specific Gravity 1.015 (1.001-1.035); Urine Squamous Epithelial Cell FEW /hpf (<5); Urine Urobilinogen Normal (Negative); Urine WBC 5 /HPF (0-3); Urine pH 5.5 (5.0-9.0)
--- NOTE | 2024-09-09 16:23 | DVHPN2 ---
Progress Note Date Seen: September 09, 2024 Has the PT tested + for MRSA If YES, has PT been informed?: No Medical Necessity Reason Pt with a Central, PICC or Fol: Yes The following are medically ne: Central Line, Chavez Catheter Reason for chavez catheter: Strict I&O Subjective Patient reports: Other Review of Systems: Deferred Objective vital signs Vital Sign Date Time Temp Pulse Resp B/P (MAP) Pulse Ox O2 Delivery O2 Flow Rate FiO2 09/09/24 15:52 110 26 163/98 (119) 96 30 09/09/24 14:00 Mechanical Ventilator+ 09/09/24 12:00 98.7 98.7 Total Intake and Output 09/08/24 09/08/24 09/09/24 15:00 23:00 07:00 Intake Total 483.01 ml 251.76 ml 1159.410 ml Output Total 2800 ml 1775 ml Balance 483.01 ml -2548.24 ml -615.590 ml medications Current Medications Medications Dose Ordered Sig/Nikki Route Start Time Stop Time Status Last Admin Dose Admin Diagnostic Test (Pha) 1 strip ACHS 08/19/24 17:00 Cancel Norepinephrine Bitartrate 250 ml @ 3.75 mls/hr Q24H IV 08/19/24 17:15 Cancel Midazolam HCl 50 ml @ 1 mls/hr Q24H IV 08/19/24 17:15 09/06/24 23:31 5 MLS/HR Ipratropium [place] 0.5 mg Q6HR NEB 08/19/24 18:00 09/09/24 11:15 0.5 MG Albuterol 2.5 mg Q6HR NEB 08/19/24 18:00 09/09/24 11:15 2.5 MG Pantoprazole Sodium 40 mg BID IV 08/20/24 22:00 09/09/24 09:40 40 MG Acetaminophen 650 mg Q6HP PRN [place] 08/21/24 01:45 08/23/24 03:36 650 MG Epoetin Aquilino-epbx 10,000 unit TUTHSA@2100 [place] 08/26/24 21:00 09/05/24 21:03 10,000 UNIT Albumin Human 100 ml @ 100 mls/hr PRN PRN IV 08/26/24 06:45 08/27/24 07:45 100 MLS/HR Propofol 100 ml @ 3.804 mls/ hr Q24H IV 08/27/24 04:30 09/08/24 03:00 19.02 MLS/HR Norepinephrine Bitartrate 32 mg/ Sodium Chloride 250 ml @ 0.469 mls/ hr Q24H IV 08/27/24 13:00 09/06/24 01:01 0.469 MLS/HR Fentanyl Citrate 250 ml @ 2.5 mls/hr Q24H IV 08/30/24 20:00 09/09/24 15:01 2.5 MLS/HR Micafungin Sodium 100 mg/Sodium Chloride 100 ml @ 100 mls/hr DAILY@0900 IV 09/01/24 09:00 09/09/24 08:03 100 MLS/HR Linezolid 300 ml @ 150 mls/hr Q12HR IV 08/31/24 22:00 09/09/24 09:40 150 MLS/HR Heparin Sodium (Porcine) 5,000 units Q12HR SC 08/31/24 22:00 09/09/24 09:41 5,000 UNITS Sodium Chloride 10 ml QSHIFT@10,22 IV 08/31/24 22:00 09/09/24 09:51 10 ML Artificial Tears 2 drop Q4HR PRN EACHEYE 09/02/24 10:45 09/07/24 05:15 2 DROP Dextrose 50 ml UD PRN IV 09/03/24 21:00 Meropenem 50 ml @ 17 mls/hr Q12H IV 09/05/24 00:00 09/09/24 11:35 17 MLS/HR Hydralazine HCl 50 mg Q8HR PRN PO 09/05/24 09:15 Hydralazine HCl 20 mg Q6HP PRN IV 09/08/24 11:45 09/09/24 09:57 20 MG Enteral Nutritional Formula 1,000 ml 60ML/HR GT 09/08/24 22:15 Insulin Human Regular AC SC 09/09/24 07:00 09/09/24 11:04 9 UNITS Diagnostic Test (Pha) 1 strip ACHS 09/09/24 07:00 09/09/24 11:03 1 STRIP Bumetanide 2 mg BIDD IV 09/09/24 18:00 Insulin Glargine 25 units HS SC 09/09/24 15:47 Examination: GENERAL:Abnormal, LUNGS:Abnormal, MSK:Abnormal laboratory and microbiology Laboratory Tests 09/09/24 03:00 Test 09/09/24 03:00 Range/Units Serum Glucose 331 H 74-106 mg/dL Microbiology Date/Time Source Procedure Growth Status 09/08/24 09:10 Trachea Gram Stain - Final Resulted 09/08/24 09:10 Trachea Respiratory Culture - Preliminary Resulted 09/04/24 10:19 Blood Blood Culture - Final NO GROWTH AFTER 5 DAYS OF INCUBATION. Complete 08/31/24 15:08 Sputum Gram Stain - Final Complete 08/31/24 15:08 Respiratory Culture - Final Presumptive Mary albicans Complete 08/31/24 14:00 Urine - [place] Urine Culture - Final Complete Problem List/Assessment/Plan Problem List/Assessment/Plan Acute kidney injury in the setting of hypotension and volume depletion -> ATN Uncontrolled diabetes Ventilator-dependent hypoxic acute respiratory failure due to aspiration pneumonia gastric obstruction vs Illeus w/ persistent vomiting carotid artery injury due to temp HD cath s/p vascular surgery repair femoral tunnel HD catheter placed by vascular hyperkalemia Recommendations hold dialysis Urine output is better with diuretics Had last dialysis on 09/07/2024 Monitor for renal recovery dc bumex free water as ordered Plan discussed with: Other Dietary Evaluation Review Recommendations by RD: Protein Supplementation, PPN/TPN Comments: Pt is at high risk of malnutrition due to prolonged vomiting leading to inadequate nutrient intake and hypermetabolic state secondary to acute inflammation. Recommendation: 1) Start PN/TPN per pharmacy 2) If GI is accessible, consider TF Pivot 1.5Cal @ 60ml/hr along with Pro-stat 1 pk TID. Start @ 10ml/hr, increase 10ml/hr Q4H until goal rate is reached. Advance TF rate slowly and gradually to prevent Refeeding syndrome. Water Flush 50ml Q4H if allowed. TF Provision --- TF at goal volume to provide 1440 ml total volume, 2160 kcal (+300 kcal via Pro-stat = 2460 kcal), 135 gm pro (+45 gm via ProStat = 180 gm), 1093 ml H20 (meets 100% est. kcal needs, 100% est. protein needs) 3) Monitor Potassium, Phosphate, Magnesium for Refeeding syndrome 4) Des 1 pk daily For DTI 5) Continue current plan of care Expected Outcomes/Goals: Blood glucose to improve Nutrient intake to meet at least 75% estimated needs FU 2-3 days Food and Nutrition Intake (Mod: <75% est energy req 7days Protein Calorie Malnutrition: Severe KASSANDRA VARGAS MD September 09, 2024 16:23
[2024-09-09] MEDS: INSULIN LANTUS (GLARGINE) 1 /0.01ml (100units/ml) SC SCH (16:53)
[2024-09-09] MEDS: SOD CHL 0.45% 1,000 ML IV ONE (16:55)
[2024-09-09] MEDS: FREE WATER GT SCH (16:59)
[2024-09-09] MEDS ORDERED: BUMETANIDE 2.5mg/10ml (0.25 mg/ml) INJ IV SCH (18:00)
--- NOTE | 2024-09-09 22:14 | DVHPN2 ---
Progress Note - Dictate Date Seen: September 09, 2024 Has the PT tested + for MRSA If YES, has PT been informed?: No Medical Necessity Reason Pt with a Central, PICC or Fol: Yes The following are medically ne: Central Line, Chavez Catheter Reason for chavez catheter: Strict I&O Subjective Patient is waking up but extremely weak He failed CPAP trial Patient is getting enteral tube feedings through the Dobbhoff tube into the small bowel at 60 mL/hour low intermittent suction is ongoing from the NG tube; NG tube output somewhat dark in color Patient still has high gastric residuals Patient is having bowel movements vital signs Vital Sign Date Time Temp Pulse Resp B/P (MAP) Pulse Ox O2 Delivery O2 Flow Rate FiO2 09/09/24 21:00 87/54 09/09/24 20:00 27 97 Mechanical Ventilator+ 30 30 09/09/24 20:00 106 09/09/24 17:00 99.5 99.5 Total Intake and Output 09/08/24 09/08/24 09/09/24 15:00 23:00 07:00 Intake Total 483.01 ml 251.76 ml 1159.410 ml Output Total 2800 ml 1775 ml Balance 483.01 ml -2548.24 ml -615.590 ml medications Current Medications Medications Dose Ordered Sig/Nikki Route Start Time Stop Time Status Last Admin Dose Admin Diagnostic Test (Pha) 1 strip ACHS 08/19/24 17:00 Cancel Norepinephrine Bitartrate 250 ml @ 3.75 mls/hr Q24H IV 08/19/24 17:15 Cancel Midazolam HCl 50 ml @ 1 mls/hr Q24H IV 08/19/24 17:15 09/09/24 19:10 1 MLS/HR Ipratropium [place] 0.5 mg Q6HR NEB 08/19/24 18:00 09/09/24 18:05 0.5 MG Albuterol 2.5 mg Q6HR NEB 08/19/24 18:00 09/09/24 18:05 2.5 MG Pantoprazole Sodium 40 mg BID IV 08/20/24 22:00 09/09/24 21:42 40 MG Acetaminophen 650 mg Q6HP PRN [place] 08/21/24 01:45 08/23/24 03:36 650 MG Epoetin Aquilino-epbx 10,000 unit TUTHSA@2100 [place] 08/26/24 21:00 09/05/24 21:03 10,000 UNIT Albumin Human 100 ml @ 100 mls/hr PRN PRN IV 08/26/24 06:45 08/27/24 07:45 100 MLS/HR Propofol 100 ml @ 3.804 mls/ hr Q24H IV 08/27/24 04:30 09/09/24 20:01 3.804 MLS/HR Norepinephrine Bitartrate 32 mg/ Sodium Chloride 250 ml @ 0.469 mls/ hr Q24H IV 08/27/24 13:00 09/06/24 01:01 0.469 MLS/HR Fentanyl Citrate 250 ml @ 2.5 mls/hr Q24H IV 08/30/24 20:00 09/09/24 15:01 2.5 MLS/HR Micafungin Sodium 100 mg/Sodium Chloride 100 ml @ 100 mls/hr DAILY@0900 IV 09/01/24 09:00 09/09/24 08:03 100 MLS/HR Linezolid 300 ml @ 150 mls/hr Q12HR IV 08/31/24 22:00 09/09/24 21:42 150 MLS/HR Heparin Sodium (Porcine) 5,000 units Q12HR SC 08/31/24 22:00 09/09/24 21:44 5,000 UNITS Sodium Chloride 10 ml QSHIFT@10,22 IV 08/31/24 22:00 09/09/24 21:50 10 ML Artificial Tears 2 drop Q4HR PRN EACHEYE 09/02/24 10:45 09/07/24 05:15 2 DROP Dextrose 50 ml UD PRN IV 09/03/24 21:00 Meropenem 50 ml @ 17 mls/hr Q12H IV 09/05/24 00:00 09/09/24 11:35 17 MLS/HR Hydralazine HCl 50 mg Q8HR PRN PO 09/05/24 09:15 Hydralazine HCl 20 mg Q6HP PRN IV 09/08/24 11:45 09/09/24 09:57 20 MG Enteral Nutritional Formula 1,000 ml 60ML/HR GT 09/08/24 22:15 Insulin Human Regular AC SC 09/09/24 07:00 09/09/24 16:54 9 UNITS Diagnostic Test (Pha) 1 strip ACHS 09/09/24 07:00 09/09/24 21:43 1 STRIP Insulin Glargine 25 units HS SC 09/09/24 15:47 09/09/24 21:44 25 UNITS Purified Water 300 ml Q4HR GT 09/09/24 18:00 09/09/24 21:50 300 ML objective General: Mechanically ventilated, sedated HEENT: Head is normocephalic and atraumatic. Pupils are equal, round, and reactive to light Neck: Supple with no cervical lymphadenopathy. Heart: Regular rate without murmur, rub, or gallop. Lungs: Bilateral crackles, most prominent on bases Abdomen: No external sign of injury. Bowel sounds present Abdomen is soft, nontender. Extremities: faint peripheral pulses. There is no clubbing, no cyanosis, and no edema. Skin: No rash. laboratory and microbiology Laboratory Tests 09/09/24 03:00 Test 09/09/24 03:00 Range/Units Serum Glucose 331 H 74-106 mg/dL Problems(with codes): (1) Gastroparesis (2) Leukocytosis (3) Anemia (4) Metabolic alkalosis (5) Diabetes type 2, uncontrolled (6) Hyponatremia Prognosis Plan Patient tentatively scheduled for tracheostomy tomorrow Continue tube feedings via the Dobbhoff tube I will follow up patient with you Protonix 40 mg IV daily Dietary Evaluation Review Recommendations by RD: Protein Supplementation, PPN/TPN Comments: Pt is at high risk of malnutrition due to prolonged vomiting leading to inadequate nutrient intake and hypermetabolic state secondary to acute inflammation. Recommendation: 1) Start PN/TPN per pharmacy 2) If GI is accessible, consider TF Pivot 1.5Cal @ 60ml/hr along with Pro-stat 1 pk TID. Start @ 10ml/hr, increase 10ml/hr Q4H until goal rate is reached. Advance TF rate slowly and gradually to prevent Refeeding syndrome. Water Flush 50ml Q4H if allowed. TF Provision --- TF at goal volume to provide 1440 ml total volume, 2160 kcal (+300 kcal via Pro-stat = 2460 kcal), 135 gm pro (+45 gm via ProStat = 180 gm), 1093 ml H20 (meets 100% est. kcal needs, 100% est. protein needs) 3) Monitor Potassium, Phosphate, Magnesium for Refeeding syndrome 4) Des 1 pk daily For DTI 5) Continue current plan of care Expected Outcomes/Goals: Blood glucose to improve Nutrient intake to meet at least 75% estimated needs FU 2-3 days Food and Nutrition Intake (Mod: <75% est energy req 7days Protein Calorie Malnutrition: Severe Plan discussed with: Other (None) ALDAIR YOUSSEF MD September 09, 2024 22:14
[2024-09-10] VITALS (101 sets, daily range): BP systolic 96–153; BP diastolic 52–96; PULSE 71–105; RESP 17–27; TEMP 98.1–98.9; O2SAT 91–100
[2024-09-10 03:58] LABS: Anion Gap 12 (5-15); Carbon Dioxide 31 mmol/L (20-31); Chloride 103 mmol/L (98-107); Mean Corpuscular Volume 87.3 fL (80.0-100.0)
[2024-09-10 04:03] LABS: Basophils # (auto) 0.1 10 ^3/uL (0-0.2); Basophils % (auto) 0.3 % (0.0-2.0); Eosinophils # (auto) 0.3 10 ^3/uL (0-0.8); Eosinophils % (auto) 1.4 % (0.0-7.0); Hematocrit 32.4 % (41.0-53.0); Lymphocytes # (auto) 3.2 10 ^3/uL (0.4-5.4); Lymphocytes % (auto) 16.8 % (10.0-50.0); Mean Corpuscular Hemoglobin 29.7 pg (28.0-32.0); Monocytes # (auto) 1.7 10 ^3/uL (0-1.3); Neutrophils % (auto) 72.5 % (37.0-80.0); Red Blood Cells 3.71 10^6/uL (4.5-5.90); Red Cell Distribution Width 15.7 % (11.8-14.3); White Blood Cell 19.3 10^3/uL (4.4-10.8)
[2024-09-10 04:04] LABS: BUN/Creatinine Ratio 32.8 (10.0-20.0); Potassium 3.1 mmol/L (3.5-5.1); Sodium 146 mmol/L (136-145)
[2024-09-10 04:07] LABS: INR 1.23 (0.9-1.15); Partial Thromboplastin Time 24.9 SEC (24.5-34.5); Prothrombin Time 12.8 sec (9.3-11.8)
[2024-09-10 04:20] LABS: Platelet Count (auto) 805 10^3/uL (140-450)
[2024-09-10 04:37] LABS: Glucose 200 mg/dL (74-106)
[2024-09-10 04:38] LABS: Blood Urea Nitrogen 89 mg/dL (9-23)
--- NOTE | 2024-09-10 05:32 | DVH ---
EXAM: XR Chest, 1 View CLINICAL INDICATION: Mechanical ventilation TECHNIQUE: Frontal view of the chest. COMPARISON: XY CHEST PORTABLE on DOS: 09/09/24, XY CHEST PORTABLE on DOS: 09/08/24, XY CHEST XRAY 1 VIE W on DOS: 09/07/24, XY CHEST PORTABLE on DOS: 09/06/24, XY CHEST XRAY 1 VIEW on DOS: 09/05/24 FINDINGS: LUNGS AND PLEURAL SPACES: Pulmonary congestion and edema. Pneumonia cannot be excluded. No pneumot horax. HEART: Unremarkable. No cardiomegaly. MEDIASTINUM: Unremarkable. Normal mediastinal contour. BONES/JOINTS: Unremarkable. No acute fracture. OTHER FINDINGS: . . . IMPRESSION: Pulmonary congestion and edema. Pneumonia cannot be excluded.
[2024-09-10 06:11] LABS: Platelet Estimate Markedly Increased
[2024-09-10] MEDS: POTASSIUM CHL 20MEQ/50ML 50 ML IV SCH (07:19)
[2024-09-10 08:19] LABS: Base Excess 5.5 mmol/L (-2.0-3.0)
[2024-09-10] MEDS: SOD CHL 0.45% 1,000 ML IV SCH (09:08)
[2024-09-10] MEDS ORDERED: HYDROmorphone HCL 2 MG/ML VL/or syr ONE (10:07)
[2024-09-10] MEDS ORDERED: fentaNYL CITRATE 100 MCG/2 ML VL ONE (10:07)
[2024-09-10] MEDS ORDERED: MIDAZOLAM HCL 2MG/2ML 2ml VIAL (1mg/ml) ONE (10:08)
[2024-09-10] MEDS ORDERED: PROPOFOL 10 MG/ML 20 ML IV ONE (10:48)
--- NOTE | 2024-09-10 11:02 | DVHPN2 ---
Progress Note Date Seen: September 10, 2024 Has the PT tested + for MRSA If YES, has PT been informed?: No Medical Necessity Reason Pt with a Central, PICC or Fol: Yes The following are medically ne: Central Line, Chavez Catheter Reason for chavez catheter: Strict I&O Subjective Patient reports: Other (events noted ) Review of Systems: Deferred Objective vital signs Vital Sign Date Time Temp Pulse Resp B/P (MAP) Pulse Ox O2 Delivery O2 Flow Rate FiO2 09/10/24 09:33 84 24 123/86 (98) 98 30 09/10/24 08:00 98.1 98.1 09/10/24 08:00 Mechanical Ventilator+ Total Intake and Output 09/09/24 09/09/24 09/10/24 15:00 23:00 07:00 Intake Total 122.930 ml 1310.150 ml 1263.8 ml Output Total 1900 ml 925 ml Balance 122.930 ml -589.850 ml 338.8 ml medications Current Medications Medications Dose Ordered Sig/Nikki Route Start Time Stop Time Status Last Admin Dose Admin Diagnostic Test (Pha) 1 strip ACHS 08/19/24 17:00 Cancel Norepinephrine Bitartrate 250 ml @ 3.75 mls/hr Q24H IV 08/19/24 17:15 Cancel Midazolam HCl 50 ml @ 1 mls/hr Q24H IV 08/19/24 17:15 09/09/24 19:10 1 MLS/HR Ipratropium [place] 0.5 mg Q6HR NEB 08/19/24 18:00 09/10/24 05:57 0.5 MG Albuterol 2.5 mg Q6HR NEB 08/19/24 18:00 09/10/24 05:57 2.5 MG Pantoprazole Sodium 40 mg BID IV 08/20/24 22:00 09/10/24 09:15 40 MG Acetaminophen 650 mg Q6HP PRN [place] 08/21/24 01:45 08/23/24 03:36 650 MG Epoetin Aquilino-epbx 10,000 unit TUTHSA@2100 [place] 08/26/24 21:00 09/05/24 21:03 10,000 UNIT Albumin Human 100 ml @ 100 mls/hr PRN PRN IV 08/26/24 06:45 08/27/24 07:45 100 MLS/HR Propofol 100 ml @ 3.804 mls/ hr Q24H IV 08/27/24 04:30 09/10/24 07:44 15.216 MLS/HR Norepinephrine Bitartrate 32 mg/ Sodium Chloride 250 ml @ 0.469 mls/ hr Q24H IV 08/27/24 13:00 09/06/24 01:01 0.469 MLS/HR Fentanyl Citrate 250 ml @ 2.5 mls/hr Q24H IV 08/30/24 20:00 09/09/24 15:01 2.5 MLS/HR Micafungin Sodium 100 mg/Sodium Chloride 100 ml @ 100 mls/hr DAILY@0900 IV 09/01/24 09:00 09/10/24 07:19 100 MLS/HR Linezolid 300 ml @ 150 mls/hr Q12HR IV 08/31/24 22:00 09/10/24 09:16 150 MLS/HR Heparin Sodium (Porcine) 5,000 units Q12HR SC 08/31/24 22:00 09/10/24 09:18 5,000 UNITS Sodium Chloride 10 ml QSHIFT@10,22 IV 08/31/24 22:00 09/10/24 09:14 10 ML Artificial Tears 2 drop Q4HR PRN EACHEYE 09/02/24 10:45 09/07/24 05:15 2 DROP Dextrose 50 ml UD PRN IV 09/03/24 21:00 Meropenem 50 ml @ 17 mls/hr Q12H IV 09/05/24 00:00 09/09/24 23:55 17 MLS/HR Hydralazine HCl 50 mg Q8HR PRN PO 09/05/24 09:15 Hydralazine HCl 20 mg Q6HP PRN IV 09/08/24 11:45 09/09/24 09:57 20 MG Enteral Nutritional Formula 1,000 ml 60ML/HR GT 09/08/24 22:15 Insulin Human Regular AC SC 09/09/24 07:00 09/10/24 05:58 6 UNITS Diagnostic Test (Pha) 1 strip ACHS 09/09/24 07:00 09/10/24 09:20 1 STRIP Insulin Glargine 25 units HS SC 09/09/24 15:47 09/09/24 21:44 25 UNITS Purified Water 300 ml Q4HR GT 09/09/24 18:00 09/10/24 05:31 300 ML Potassium Chloride 50 ml @ 25 mls/hr Q2H IV 09/10/24 07:00 09/10/24 12:59 09/10/24 09:07 25 MLS/HR Sodium Chloride 1,000 ml @ 75 mls/hr [id number] IV 09/10/24 08:45 09/10/24 09:08 75 MLS/HR Examination: GENERAL:Abnormal, LUNGS:Abnormal, MSK:Abnormal, SKIN:Abnormal, NEURO:Abnormal laboratory and microbiology Laboratory Tests 09/10/24 03:23 Test 09/10/24 03:23 Range/Units Serum Glucose 200 #H 74-106 mg/dL Microbiology Date/Time Source Procedure Growth Status 09/08/24 09:10 Trachea Gram Stain - Final Resulted 09/08/24 09:10 Trachea Respiratory Culture - Preliminary Resulted 09/04/24 10:19 Blood Blood Culture - Final NO GROWTH AFTER 5 DAYS OF INCUBATION. Complete 08/31/24 15:08 Sputum Gram Stain - Final Complete 08/31/24 15:08 Respiratory Culture - Final Presumptive Mary albicans Complete 08/31/24 14:00 Urine - [place] Urine Culture - Final Complete Problem List/Assessment/Plan Problem List/Assessment/Plan Acute kidney injury in the setting of hypotension and volume depletion -> ATN s/p HD Uncontrolled diabetes Ventilator-dependent hypoxic acute respiratory failure due to aspiration pneumonia gastric obstruction vs Illeus w/ persistent vomiting carotid artery injury due to temp HD cath s/p vascular surgery repair femoral tunnel HD catheter placed by vascular hyperkalemia Recommendations hold dialysis/HD cath removed Had last dialysis on 09/07/2024 ivf as ordered, dc bumex Plan discussed with: Other (sister) My Orders My Orders Orders - KASSANDRA VARGAS MD Procedure Category Date Status Time Free Water PHA 09/09/24 In Process 18:00 Sod Chl 0.45% (Sodium PHA 09/10/24 In Process Chloride 0.45% Via 08:45 Dietary Evaluation Review Recommendations by RD: Protein Supplementation, PPN/TPN Comments: Pt is at high risk of malnutrition due to prolonged vomiting leading to inadequate nutrient intake and hypermetabolic state secondary to acute inflammation. Recommendation: 1) Start PN/TPN per pharmacy 2) If GI is accessible, consider TF Pivot 1.5Cal @ 60ml/hr along with Pro-stat 1 pk TID. Start @ 10ml/hr, increase 10ml/hr Q4H until goal rate is reached. Advance TF rate slowly and gradually to prevent Refeeding syndrome. Water Flush 50ml Q4H if allowed. TF Provision --- TF at goal volume to provide 1440 ml total volume, 2160 kcal (+300 kcal via Pro-stat = 2460 kcal), 135 gm pro (+45 gm via ProStat = 180 gm), 1093 ml H20 (meets 100% est. kcal needs, 100% est. protein needs) 3) Monitor Potassium, Phosphate, Magnesium for Refeeding syndrome 4) Des 1 pk daily For DTI 5) Continue current plan of care Expected Outcomes/Goals: Blood glucose to improve Nutrient intake to meet at least 75% estimated needs FU 2-3 days Food and Nutrition Intake (Mod: <75% est energy req 7days Protein Calorie Malnutrition: Severe KASSANDRA VARGAS MD September 10, 2024 11:02
--- NOTE | 2024-09-10 11:25 | DVHOP ---
DATE OF SURGERY: 09/10/2024 PREOPERATIVE DIAGNOSIS: Ventilator-dependent renal failure. POSTOPERATIVE DIAGNOSIS: Ventilator-dependent renal failure. SURGEON: Prieto Swanson MD MANAGER SUPPORT SERVICES: Jose Ramon Alcantar. ANESTHESIA: General endotracheal, Dr. Kelly. PROCEDURE: Tracheostomy. DESCRIPTION OF PROCEDURE: Under general endotracheal anesthesia, with the patient's skin prepped and draped, an anterior cervical incision was made and incision carried through adipose tissue, strap muscles down into the anterior surface of the trachea. The tissues were swept bluntly with Kittner dissector superiorly, inferiorly, and laterally. The thyroid gland was displaced superiorly. The membrane between the third and fourth cartilage of the trachea was incised sharply, with inhaled gas reduced to room air concentration to minimize the potential for inadvertent airway fire. The tracheotomy was dilated and a size 8 tracheostomy tube was inserted as the endotracheal tube was withdrawn by the anesthesiologist. Reaching its final position, the tube allowed immediate recapture of CO2 and normal ventilation. The tube was secured with 2 Prolene 2-0 sutures and circumferential umbilical tape. The cuff was insufflated with 6 mL of air. The patient remained in unchanged condition at the termination of the procedure, left the operating room following an accurate needle and sponge count. Chest x-ray was ordered and is pending at the time of this dictation. The patient's sister, Carolann, was thoroughly informed at [phone]. MD DULCE Velasquez/AMISHA/RACHID TID: [id number] RECEIPT: [id number]
[2024-09-10] MEDS: FREE WATER GT SCH (11:35)
--- NOTE | 2024-09-10 11:46 | DVH ---
EXAM: XY CHEST XRAY 1 VIEW Indication: tracheostomy Technique: Single frontal view of the chest was obtained Comparison: XY CHEST PORTABLE on DOS: 09/10/24, XY CHEST PORTABLE on DOS: 09/09/24, XY CHEST PORTABLE on DOS: 09/08/24, XY CHEST XRAY 1 VIEW on DOS: 09/07/24, XY CHEST PORTABLE on DOS: 09/06/24 FINDINGS: Lines and Tubes: Enteric tube tip projects over the expected region of the stomach. Tracheostomy tube is visualized. Left PICC tip projects over the superior vena cava. Lungs: Diffuse interstitial opacities. Low lung volumes. Pleura: No effusion. No pneumothorax. Cardiomediastinal contours: Unremarkable Bones: No acute osseous abnormality. IMPRESSION: Diffuse interstitial opacities. Low lung volumes.
[2024-09-10] MEDS: LIDOCAINE W/ EPINEPHRINE 1% 20ML VIAL ONE (11:48)
[2024-09-10] MEDS: BUPIVACAINE 0.5% P/F INJ 10 ML VIAL ONE (11:48)
--- NOTE | 2024-09-10 19:10 | DVHPNRES ---
Progress Note Date Seen: September 10, 2024 Resident Creating Document: ELIO SANTOS RESIDENT Has the PT tested + for MRSA If YES, has PT been informed?: No Medical Necessity Reason Pt with a Central, PICC or Fol: Yes The following are medically ne: Central Line, Chavez Catheter Reason for chavez catheter: Strict I&O Subjective Review of Systems Patient was a 44-year-old male with a past medical history of diabetes presented to the ER with a chief complaint of intractable vomitings and altered level of consciousness. According to the sister patient has been vomiting persistently for 7-10 days before coming to the hospital. She reports that he took a shot of Ozempic before the vomiting started. While in the ER patient was altered and was not able to protect his airways following which it was decided to intubate him and put him on mechanical ventilation. Before intubation when he was laid flat, had vomiting coffee-ground and aspirated. After intubation patient underwent bronchoscopy with removal of mucus plugs from left upper and left lower lung. Past medical history: Diabetes Past surgical history: Left foot surgery Social history: Smokes 1 pack of cigarettes per day, denied alcohol or any other drug use Home medications: ?? Patient seen and examined on the bedside Sedated and on mechanical ventilation Patient underwent tracheostomy today Objective vital signs Vital Sign Date Time Temp Pulse Resp B/P (MAP) Pulse Ox O2 Delivery O2 Flow Rate FiO2 09/10/24 18:45 92 24 135/82 (99) 97 09/10/24 18:26 30 09/10/24 18:00 Mechanical Ventilator+ 09/10/24 12:00 98.5 98.5 Total Intake and Output 09/09/24 09/09/24 09/10/24 15:00 23:00 07:00 Intake Total 522.930 ml 1710.150 ml 1391.516 ml Output Total 1900 ml 925 ml Balance 522.930 ml -189.850 ml 466.516 ml medications Current Medications Medications Dose Ordered Sig/Nikki Route Start Time Stop Time Status Last Admin Dose Admin Diagnostic Test (Pha) 1 strip ACHS 08/19/24 17:00 Cancel Norepinephrine Bitartrate 250 ml @ 3.75 mls/hr Q24H IV 08/19/24 17:15 Cancel Midazolam HCl 50 ml @ 1 mls/hr Q24H IV 08/19/24 17:15 09/09/24 19:10 1 MLS/HR Ipratropium [place] 0.5 mg Q6HR NEB 08/19/24 18:00 09/10/24 18:25 0.5 MG Albuterol 2.5 mg Q6HR NEB 08/19/24 18:00 09/10/24 18:25 2.5 MG Pantoprazole Sodium 40 mg BID IV 08/20/24 22:00 09/10/24 09:15 40 MG Acetaminophen 650 mg Q6HP PRN [place] 08/21/24 01:45 08/23/24 03:36 650 MG Epoetin Aquilino-epbx 10,000 unit TUTHSA@2100 SC 08/26/24 21:00 09/05/24 21:03 10,000 UNIT Albumin Human 100 ml @ 100 mls/hr PRN PRN IV 08/26/24 06:45 08/27/24 07:45 100 MLS/HR Propofol 100 ml @ 3.804 mls/ hr Q24H IV 08/27/24 04:30 09/10/24 15:30 26.628 MLS/HR Norepinephrine Bitartrate 32 mg/ Sodium Chloride 250 ml @ 0.469 mls/ hr Q24H IV 08/27/24 13:00 09/06/24 01:01 0.469 MLS/HR Fentanyl Citrate 250 ml @ 2.5 mls/hr Q24H IV 08/30/24 20:00 09/09/24 15:01 2.5 MLS/HR Micafungin Sodium 100 mg/Sodium Chloride 100 ml @ 100 mls/hr DAILY@0900 IV 09/01/24 09:00 09/10/24 07:19 100 MLS/HR Linezolid 300 ml @ 150 mls/hr Q12HR IV 08/31/24 22:00 09/10/24 09:16 150 MLS/HR Heparin Sodium (Porcine) 5,000 units Q12HR SC 08/31/24 22:00 09/10/24 09:18 5,000 UNITS Sodium Chloride 10 ml QSHIFT@10,22 IV 08/31/24 22:00 09/10/24 09:14 10 ML Artificial Tears 2 drop Q4HR PRN EACHEYE 09/02/24 10:45 09/07/24 05:15 2 DROP Dextrose 50 ml UD PRN IV 09/03/24 21:00 Meropenem 50 ml @ 17 mls/hr Q12H IV 09/05/24 00:00 09/10/24 11:35 17 MLS/HR Hydralazine HCl 50 mg Q8HR PRN PO 09/05/24 09:15 Hydralazine HCl 20 mg Q6HP PRN IV 09/08/24 11:45 09/09/24 09:57 20 MG Enteral Nutritional Formula 1,000 ml 60ML/HR GT 09/08/24 22:15 Insulin Human Regular AC SC 09/09/24 07:00 09/10/24 11:45 2 UNITS Diagnostic Test (Pha) 1 strip ACHS 09/09/24 07:00 09/10/24 17:27 1 STRIP Sodium Chloride 1,000 ml @ 75 mls/hr [id number] IV 09/10/24 08:45 09/10/24 09:08 75 MLS/HR Purified Water 300 ml Q6HR GT 09/10/24 12:00 09/10/24 18:00 300 ML Examination Examination: Constitutional: Patient sedated and on mechanical ventilation, RASS -2 Gen - mild conjuctival pallor, no icterus, no cyanosis, no clubbing, no LAD, 1+ edema in the feet . Skin - Patients skin is warm and dry. HEENT - normocephalic, atraumatic, moist mucous membranes. Neck - full ROM, no LAD, no jvd Pulmonary - B/L air entry present, diffuse rales, no wheezing, no stridor. cardiovascular - regular S1,S2 heard, no added sounds, no murmurs heard. GI - soft abdomen. no hepatospleenomegaly. bowel sounds hypoactive sacrum- ulcer seen , stage 1 ulcer with bloody oozing in gluteal fold Neurological - patient was sedated and on mechanical ventilation. Gag reflex present, pupils equal and reactive laboratory and microbiology Laboratory Tests 09/10/24 03:23 Test 09/10/24 03:23 Range/Units Serum Glucose 200 #H 74-106 mg/dL Microbiology Date/Time Source Procedure Growth Status 09/08/24 09:10 Trachea Gram Stain - Final Resulted 09/08/24 09:10 Trachea Respiratory Culture - Preliminary Resulted 09/04/24 10:19 Blood Blood Culture - Final NO GROWTH AFTER 5 DAYS OF INCUBATION. Complete 08/31/24 15:08 Sputum Gram Stain - Final Complete 08/31/24 15:08 Respiratory Culture - Final Presumptive Mary albicans Complete 08/31/24 14:00 Urine - [place] Urine Culture - Final Complete Labs and/or images reviewed: Labs reviewed by me, Image(s) reviewed by me Problem List/Assessment/Plan Problem List/Assessment/Plan Assessment and plan: Neurology Acute metabolic encephalopathy likely due to sepsis/HHS - on mechanical ventilation - Failed CPAP trial for three consecutive days - Patient underwent tracheostomy today. Respiratory Acute hypoxic respiratory failure Probable aspiration pneumonia ARDS - on mechanical ventilation with FiO2 30%, peep 5 - chest x-ray shows bilateral patchy opacities - ABG compensated - duonebs q6hr - IV antibiotics meropenem, linezolid, micafungin - sputum culture showed growth of yeast Cardiovascular Shock due to sepsis possibly from aspiration Acute on chronic heart failure with reduced ejection fraction - echo showed LVEF< 40% - off norepinephrine Infectious disease Septic shock likely due to aspiration pneumonia Infected Sacral ulcer, unstageable pressure ulcer - on IV antibiotics - culture from sacral ulcer growing enterococcus - blood culture showed no growth - on linezolid Nephrology Metabolic alkalosis likely from intractable vomiting, resolved KATE on CKD likely due to be VMN from dehydration - on hemodialysis - urine output improved - IV NS @ 75 ml/ hr. - Epotein alpha-epbx per protocol GI ?Gastroparesis ?Upper GI bleed - KUB shows nonobstructive bowel gas pattern - Protonix b.i.d. - 4 units of PRBC given, H&H stable - GI on board - CT with PO contrast showed no obstruction. - FOBT positive - Dobbhoff tube with enteral feeding Glucerna Endocrinology Uncontrolled diabetes mellitus with a hyperglycemia Morbid obesity - on insulin sliding scale - lantus 25 unit HS Diet: dobhoff tube DVT prophylaxis: heparin Left upper arm PICC placed on 08/31 Chavez's catheter placed on 09/09/24 Goals of care discussed with the patient's sister Sheree for over 27 mins. Full code Critical care time spent 48 minutes Plan discussed with Dr. Flowers Plan discussed with: Other (Sister, RN) My Orders My Orders Orders - ELIO SANTOS RESIDENT Procedure Category Date Status Time Blood Culture MIRLANDE 09/10/24 Uncollected 06:45 Dietary Evaluation Review Recommendations by RD: Protein Supplementation, PPN/TPN Comments: Pt is at high risk of malnutrition due to prolonged vomiting leading to inadequate nutrient intake and hypermetabolic state secondary to acute inflammation. Recommendation: 1) Start PN/TPN per pharmacy 2) If GI is accessible, consider TF Pivot 1.5Cal @ 60ml/hr along with Pro-stat 1 pk TID. Start @ 10ml/hr, increase 10ml/hr Q4H until goal rate is reached. Advance TF rate slowly and gradually to prevent Refeeding syndrome. Water Flush 50ml Q4H if allowed. TF Provision --- TF at goal volume to provide 1440 ml total volume, 2160 kcal (+300 kcal via Pro-stat = 2460 kcal), 135 gm pro (+45 gm via ProStat = 180 gm), 1093 ml H20 (meets 100% est. kcal needs, 100% est. protein needs) 3) Monitor Potassium, Phosphate, Magnesium for Refeeding syndrome 4) Des 1 pk daily For DTI 5) Continue current plan of care Expected Outcomes/Goals: Blood glucose to improve Nutrient intake to meet at least 75% estimated needs FU 2-3 days Food and Nutrition Intake (Mod: <75% est energy req 7days Protein Calorie Malnutrition: Severe Date of Service: September 10, 2024 Billing Provider: ARMANDO FLOWERS MD Common Visit Codes: [id number] CARE 30-74 MIN ELIO SANTOS RESIDENT September 10, 2024 19:10 ARMANDO FLOWERS MD September 12, 2024 22:13
[2024-09-10] MEDS: PROPOFOL 100 ML IV SCH (22:51)
[2024-09-10] MEDS: InsuLIN REG 1unit/0.01ml Soln (100units/ml) SC SCH (22:59)
[2024-09-11] VITALS (102 sets, daily range): BP systolic 106–165; BP diastolic 61–93; PULSE 70–104; RESP 15–24; TEMP 98.7–99.1; O2SAT 90–100
[2024-09-11 03:52] LABS: Basophils # (auto) 0.2 10 ^3/uL (0-0.2); Lymphocytes # (auto) 2.7 10 ^3/uL (0.4-5.4); Lymphocytes % (auto) 15.8 % (10.0-50.0); Monocytes # (auto) 1.3 10 ^3/uL (0-1.3); Neutrophils # (auto) 12.3 10 ^3/uL (1.6-8.6); White Blood Cell 17.2 10^3/uL (4.4-10.8)
[2024-09-11 03:55] LABS: Basophils % (auto) 1.1 % (0.0-2.0); Eosinophils # (auto) 0.6 10 ^3/uL (0-0.8); Eosinophils % (auto) 3.7 % (0.0-7.0); Hematocrit 29.5 % (41.0-53.0); Mean Corpuscular Hemoglobin 29.5 pg (28.0-32.0); Mean Corpuscular Volume 86.8 fL (80.0-100.0); Monocytes % (auto) 7.8 % (0.0-12.0); Neutrophils % (auto) 71.6 % (37.0-80.0); Platelet Count (auto) 635 10^3/uL (140-450); Red Cell Distribution Width 15.5 % (11.8-14.3)
[2024-09-11 04:03] LABS: Chloride 103 mmol/L (98-107); Sodium 144 mmol/L (136-145)
[2024-09-11 04:04] LABS: Anion Gap 14 (5-15); Carbon Dioxide 27 mmol/L (20-31)
[2024-09-11 04:09] LABS: BUN/Creatinine Ratio 33.5 (10.0-20.0)
[2024-09-11 04:16] LABS: Blood Urea Nitrogen 81 mg/dL (9-23); Calcium 8.6 mg/dL (8.7-10.4); Glucose 173 mg/dL (74-106); Potassium 3.3 mmol/L (3.5-5.1)
[2024-09-11] MEDS: POTASSIUM CHL 20MEQ/50ML 50 ML IV ONE (05:07)
--- NOTE | 2024-09-11 05:44 | DVH ---
EXAM: XR Chest, 1 View CLINICAL INDICATION: Mechanical ventilation TECHNIQUE: Frontal view of the chest. COMPARISON: XY CHEST XRAY 1 VIEW on DOS: 09/10/24, XY CHEST PORTABLE on DOS: 09/10/24, XY CHEST PORTABL E on DOS: 09/09/24, XY CHEST PORTABLE on DOS: 09/08/24, XY CHEST XRAY 1 VIEW on DOS: 09/07/24 FINDINGS: LUNGS AND PLEURAL SPACES: Pulmonary congestion and edema. Pneumonia cannot be excluded. No pneumot horax. HEART: Unremarkable. No cardiomegaly. MEDIASTINUM: Unremarkable. Normal mediastinal contour. BONES/JOINTS: Unremarkable. No acute fracture. TUBES, LINES AND DEVICES: Tracheostomy tube in satisfactory position. Enteric tube tip in the stom ach. OTHER FINDINGS: . . . IMPRESSION: Pulmonary congestion and edema. Pneumonia cannot be excluded.
[2024-09-11 08:04] LABS: Base Excess 3.2 mmol/L (-2.0-3.0)
[2024-09-11 09:01] LABS: Base Excess 3.2 mmol/L (-2.0-3.0)
--- NOTE | 2024-09-11 11:00 | DVHPN2 ---
Progress Note Date Seen: September 11, 2024 Has the PT tested + for MRSA If YES, has PT been informed?: No Medical Necessity Reason Pt with a Central, PICC or Fol: Yes The following are medically ne: Central Line, Chavez Catheter Reason for chavez catheter: Strict I&O Objective vital signs Vital Sign Date Time Temp Pulse Resp B/P (MAP) Pulse Ox O2 Delivery O2 Flow Rate FiO2 09/11/24 09:17 90 20 119/76 (90) 98 30 09/11/24 06:00 Mechanical Ventilator+ 09/11/24 04:00 98.9 98.9 Total Intake and Output 09/10/24 09/10/24 09/11/24 15:00 23:00 07:00 Intake Total 947.808 ml 1545.472 ml 1758.224 ml Output Total 800 ml 1600 ml Balance 947.808 ml 745.472 ml 158.224 ml medications Current Medications Medications Dose Ordered Sig/Nikki Route Start Time Stop Time Status Last Admin Dose Admin Diagnostic Test (Pha) 1 strip ACHS 08/19/24 17:00 Cancel Norepinephrine Bitartrate 250 ml @ 3.75 mls/hr Q24H IV 08/19/24 17:15 Cancel Midazolam HCl 50 ml @ 1 mls/hr Q24H IV 08/19/24 17:15 09/09/24 19:10 1 MLS/HR Ipratropium [place] 0.5 mg Q6HR NEB 08/19/24 18:00 09/11/24 06:56 0.5 MG Albuterol 2.5 mg Q6HR NEB 08/19/24 18:00 09/11/24 06:56 2.5 MG Pantoprazole Sodium 40 mg BID IV 08/20/24 22:00 09/11/24 09:27 40 MG Acetaminophen 650 mg Q6HP PRN CA 08/21/24 01:45 08/23/24 03:36 650 MG Epoetin Aquilino-epbx 10,000 unit TUTHSA@2100 SC 08/26/24 21:00 09/10/24 21:13 10,000 UNIT Albumin Human 100 ml @ 100 mls/hr PRN PRN IV 08/26/24 06:45 08/27/24 07:45 100 MLS/HR Norepinephrine Bitartrate 32 mg/ Sodium Chloride 250 ml @ 0.469 mls/ hr Q24H IV 08/27/24 13:00 09/06/24 01:01 0.469 MLS/HR Fentanyl Citrate 250 ml @ 2.5 mls/hr Q24H IV 08/30/24 20:00 09/11/24 01:43 12.5 MLS/HR Micafungin Sodium 100 mg/Sodium Chloride 100 ml @ 100 mls/hr DAILY@0900 IV 09/01/24 09:00 09/11/24 09:00 100 MLS/HR Linezolid 300 ml @ 150 mls/hr Q12HR IV 08/31/24 22:00 09/11/24 09:38 150 MLS/HR Heparin Sodium (Porcine) 5,000 units Q12HR SC 08/31/24 22:00 09/11/24 09:26 5,000 UNITS Sodium Chloride 10 ml QSHIFT@10,22 IV 08/31/24 22:00 09/11/24 09:28 10 ML Artificial Tears 2 drop Q4HR PRN EACHEYE 09/02/24 10:45 09/07/24 05:15 2 DROP Dextrose 50 ml UD PRN IV 09/03/24 21:00 Meropenem 50 ml @ 17 mls/hr Q12H IV 09/05/24 00:00 09/10/24 23:56 17 MLS/HR Hydralazine HCl 50 mg Q8HR PRN PO 09/05/24 09:15 Hydralazine HCl 20 mg Q6HP PRN IV 09/08/24 11:45 09/09/24 09:57 20 MG Enteral Nutritional Formula 1,000 ml 60ML/HR GT 09/08/24 22:15 Insulin Human Regular AC SC 09/09/24 07:00 09/11/24 06:42 3 UNITS Diagnostic Test (Pha) 1 strip ACHS 09/09/24 07:00 09/11/24 06:39 1 STRIP Sodium Chloride 1,000 ml @ 75 mls/hr [id number] IV 09/10/24 08:45 09/11/24 05:45 75 MLS/HR Purified Water 300 ml Q6HR GT 09/10/24 12:00 09/11/24 06:02 300 ML Propofol 100 ml @ 3.672 mls/ hr Q24H IV 09/10/24 22:30 09/11/24 10:45 22.032 MLS/HR Insulin Human Regular HS SC 09/10/24 22:00 09/10/24 22:59 2 UNITS laboratory and microbiology Laboratory Tests 09/11/24 08:59 09/11/24 03:20 Test 09/11/24 03:20 Range/Units Serum Glucose 173 H 74-106 mg/dL Problem List/Assessment/Plan Problem List/Assessment/Plan 09/11/24 NO PROBLEMS WITH TRACHEOSTOMY REPORTED, CXR REVIEWED: GOOD POSITION OF TRACHEOSTOPMY, BOTH LIUNGS INFLATED, I WILL SIGN OFF . PLEASE RECALL IF NEEDED Plan discussed with: Other Dietary Evaluation Review Recommendations by RD: Protein Supplementation, PPN/TPN Comments: Pt is at high risk of malnutrition due to prolonged vomiting leading to inadequate nutrient intake and hypermetabolic state secondary to acute inflammation. Recommendation: 1) Start PN/TPN per pharmacy 2) If GI is accessible, consider TF Pivot 1.5Cal @ 60ml/hr along with Pro-stat 1 pk TID. Start @ 10ml/hr, increase 10ml/hr Q4H until goal rate is reached. Advance TF rate slowly and gradually to prevent Refeeding syndrome. Water Flush 50ml Q4H if allowed. TF Provision --- TF at goal volume to provide 1440 ml total volume, 2160 kcal (+300 kcal via Pro-stat = 2460 kcal), 135 gm pro (+45 gm via ProStat = 180 gm), 1093 ml H20 (meets 100% est. kcal needs, 100% est. protein needs) 3) Monitor Potassium, Phosphate, Magnesium for Refeeding syndrome 4) Des 1 pk daily For DTI 5) Continue current plan of care Expected Outcomes/Goals: Blood glucose to improve Nutrient intake to meet at least 75% estimated needs FU 2-3 days Food and Nutrition Intake (Mod: <75% est energy req 7days Protein Calorie Malnutrition: Severe ALETHEA SLATER MD September 11, 2024 11:00
--- NOTE | 2024-09-11 11:19 | DVHPN2 ---
Progress Note Date Seen: September 11, 2024 Has the PT tested + for MRSA If YES, has PT been informed?: No Medical Necessity Reason Pt with a Central, PICC or Fol: Yes The following are medically ne: Central Line, Chavez Catheter Reason for chavez catheter: Strict I&O Subjective Review of Systems: RESPIRATORY:Abnormal Other Systems: Patient seen and examined by myself today in follow-up, patient remained intubated on ventilator Objective vital signs Vital Sign Date Time Temp Pulse Resp B/P (MAP) Pulse Ox O2 Delivery O2 Flow Rate FiO2 09/11/24 09:17 90 20 119/76 (90) 98 30 09/11/24 06:00 Mechanical Ventilator+ 09/11/24 04:00 98.9 98.9 Total Intake and Output 09/10/24 09/10/24 09/11/24 15:00 23:00 07:00 Intake Total 947.808 ml 1545.472 ml 1758.224 ml Output Total 800 ml 1600 ml Balance 947.808 ml 745.472 ml 158.224 ml medications Current Medications Medications Dose Ordered Sig/Nikki Route Start Time Stop Time Status Last Admin Dose Admin Diagnostic Test (Pha) 1 strip ACHS 08/19/24 17:00 Cancel Norepinephrine Bitartrate 250 ml @ 3.75 mls/hr Q24H IV 08/19/24 17:15 Cancel Midazolam HCl 50 ml @ 1 mls/hr Q24H IV 08/19/24 17:15 09/09/24 19:10 1 MLS/HR Ipratropium [place] 0.5 mg Q6HR NEB 08/19/24 18:00 09/11/24 06:56 0.5 MG Albuterol 2.5 mg Q6HR NEB 08/19/24 18:00 09/11/24 06:56 2.5 MG Pantoprazole Sodium 40 mg BID IV 08/20/24 22:00 09/11/24 09:27 40 MG Acetaminophen 650 mg Q6HP PRN IA 08/21/24 01:45 08/23/24 03:36 650 MG Epoetin Aquilino-epbx 10,000 unit TUTHSA@2100 SC 08/26/24 21:00 09/10/24 21:13 10,000 UNIT Albumin Human 100 ml @ 100 mls/hr PRN PRN IV 08/26/24 06:45 08/27/24 07:45 100 MLS/HR Norepinephrine Bitartrate 32 mg/ Sodium Chloride 250 ml @ 0.469 mls/ hr Q24H IV 08/27/24 13:00 09/06/24 01:01 0.469 MLS/HR Fentanyl Citrate 250 ml @ 2.5 mls/hr Q24H IV 08/30/24 20:00 09/11/24 01:43 12.5 MLS/HR Micafungin Sodium 100 mg/Sodium Chloride 100 ml @ 100 mls/hr DAILY@0900 IV 09/01/24 09:00 09/11/24 09:00 100 MLS/HR Linezolid 300 ml @ 150 mls/hr Q12HR IV 08/31/24 22:00 09/11/24 09:38 150 MLS/HR Heparin Sodium (Porcine) 5,000 units Q12HR SC 08/31/24 22:00 09/11/24 09:26 5,000 UNITS Sodium Chloride 10 ml QSHIFT@10,22 IV 08/31/24 22:00 09/11/24 09:28 10 ML Artificial Tears 2 drop Q4HR PRN EACHEYE 09/02/24 10:45 09/07/24 05:15 2 DROP Dextrose 50 ml UD PRN IV 09/03/24 21:00 Meropenem 50 ml @ 17 mls/hr Q12H IV 09/05/24 00:00 09/10/24 23:56 17 MLS/HR Hydralazine HCl 50 mg Q8HR PRN PO 09/05/24 09:15 Hydralazine HCl 20 mg Q6HP PRN IV 09/08/24 11:45 09/09/24 09:57 20 MG Enteral Nutritional Formula 1,000 ml 60ML/HR GT 09/08/24 22:15 Insulin Human Regular AC SC 09/09/24 07:00 09/11/24 06:42 3 UNITS Diagnostic Test (Pha) 1 strip ACHS 09/09/24 07:00 09/11/24 06:39 1 STRIP Sodium Chloride 1,000 ml @ 75 mls/hr [id number] IV 09/10/24 08:45 09/11/24 05:45 75 MLS/HR Purified Water 300 ml Q6HR GT 09/10/24 12:00 09/11/24 06:02 300 ML Propofol 100 ml @ 3.672 mls/ hr Q24H IV 09/10/24 22:30 09/11/24 10:45 22.032 MLS/HR Insulin Human Regular HS SC 09/10/24 22:00 09/10/24 22:59 2 UNITS Examination: LUNGS:Normal, CVS:Normal, MSK:Normal laboratory and microbiology Laboratory Tests 09/11/24 08:59 09/11/24 03:20 Test 09/11/24 03:20 Range/Units Serum Glucose 173 H 74-106 mg/dL Microbiology Date/Time Source Procedure Growth Status 09/08/24 09:10 Trachea Gram Stain - Final Resulted 09/08/24 09:10 Trachea Respiratory Culture - Preliminary Resulted 09/04/24 10:19 Blood Blood Culture - Final NO GROWTH AFTER 5 DAYS OF INCUBATION. 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 Recommendation: 1) Start PN/TPN per pharmacy 2) If GI is accessible, consider TF Pivot 1.5Cal @ 60ml/hr along with Pro-stat 1 pk TID. Start @ 10ml/hr, increase 10ml/hr Q4H until goal rate is reached. Advance TF rate slowly and gradually to prevent Refeeding syndrome. Water Flush 50ml Q4H if allowed. TF Provision --- TF at goal volume to provide 1440 ml total volume, 2160 kcal (+300 kcal via Pro-stat = 2460 kcal), 135 gm pro (+45 gm via ProStat = 180 gm), 1093 ml H20 (meets 100% est. kcal needs, 100% est. protein needs) 3) Monitor Potassium, Phosphate, Magnesium for Refeeding syndrome 4) Des 1 pk daily For DTI 5) Continue current plan of care Expected Outcomes/Goals: Blood glucose to improve Nutrient intake to meet at least 75% estimated needs FU 2-3 days Food and Nutrition Intake (Mod: <75% est energy req 7days Protein Calorie Malnutrition: Severe QUINCY GALLARDO MD September 11, 2024 11:19
[2024-09-11] MEDS: DOPamine 1600MCG/ML D5W 250 ML IV SCH (12:00)
--- NOTE | 2024-09-11 14:12 | DVH ---
CLINICAL INFORMATION: 44 years old, Male; UNEQUAL PUPILS. TECHNIQUE: Axial imaging was obtained through the brain without contrast. Coronal and sagittal reform atted images were obtained, reviewed, and stored. Images were reviewed in brain and bone windows. Al l CT scans at this medical facility are performed using dose modulation techniques as appropriate to a performed exam including the following: Automated exposure control was utilized; adjustment of the MA and/or KV according to patient size; and use of iterative reconstruction technique. CTDIvol = 70.2 8 mGy DLP = 1349.51 mGy-cm COMPARISON: None FINDINGS: No acute intracranial hemorrhage. Focal area of hypoattenuation in the left frontoparietal region consistent with acute or subacute infarct. The ventricles and sulci are within normal limits i n size for age. Basal cisterns are patent. No midline shift. The calvarium is unremarkable. Partial opacification of the mastoid air cells, likely effusions. Partially visualized endotracheal tube and nasogastric tube. IMPRESSION: 1. Findings consistent with acute or subacute left MCA territory infarct. 2. No evidence of acute intracranial hemorrhage. 3. Partial opacification of the mastoid air cells bilaterally, likely effusions. Correlate clinicall y to exclude mastoiditis. Critical findings Critical Result: Acute or subacute left MCA territory infarct. Findings discussed with Dr. Paz at 09/11/2024 04:08 PM CDT, and acknowledged receipt and understan ding of the findings. ..
[2024-09-11] MEDS: ASPirin 81 mg TAB PO ONE (15:45)
[2024-09-11] MEDS: CLOPIDOGREL BISULFATE 75 MG TAB PO ONE (15:45)
[2024-09-11] MEDS: ATORVASTATIN 20 MG TAB PO ONE (15:45)
--- NOTE | 2024-09-11 16:10 | DVH ---
PROCEDURE: MRI BRAIN HEAD WO CONTRAST Indication: Acute/subacute ischemic stroke COMPARISON: 592 TECHNIQUE: Multiplanar multisequence images of the brain are obtained. FINDINGS: Examination degraded by motion. There is diffusion restriction within cerebellar hemisphere measuring 3.2 by 0.7 cm. Less pronounced diffusion restriction signal within the left frontoparietal lobe. There is T2 hyperin tense signal within the left frontoparietal lobe which may be sparing the cortex Ventricles are midline and normal in size. Cisterns patent. The major intracranial flow voids are preserved. Large bilateral mastoid effusions. Orbits and retrobulbar spaces unremarkable IMPRESSION: 1. Acute infarction within the right cerebellar hemisphere measuring 3.2 x 0.7 cm 2. Left frontoparietal increased T2 signal with mild diffusion restriction signal. This could represe nt subacute infarct or underlying mass/lesion. Recommend MRI brain with contrast to exclude underlyi ng lesion/mass. 3. Large bilateral mastoid effusions.
[2024-09-11] MEDS ORDERED: DEXTROSE (50%) 50ML SYRG IV PRN (16:45)
--- NOTE | 2024-09-11 17:07 | DVHPNRES ---
Progress Note Date Seen: September 11, 2024 Resident Creating Document: ELIO SANTOS RESIDENT Has the PT tested + for MRSA If YES, has PT been informed?: No Medical Necessity Reason Pt with a Central, PICC or Fol: Yes The following are medically ne: Central Line, Chavez Catheter Reason for chavez catheter: Strict I&O Subjective Review of Systems Patient was a 44-year-old male with a past medical history of diabetes presented to the ER with a chief complaint of intractable vomitings and altered level of consciousness. According to the sister patient has been vomiting persistently for 7-10 days before coming to the hospital. She reports that he took a shot of Ozempic before the vomiting started. While in the ER patient was altered and was not able to protect his airways following which it was decided to intubate him and put him on mechanical ventilation. Before intubation when he was laid flat, had vomiting coffee-ground and aspirated. After intubation patient underwent bronchoscopy with removal of mucus plugs from left upper and left lower lung. Past medical history: Diabetes Past surgical history: Left foot surgery Social history: Smokes 1 pack of cigarettes per day, denied alcohol or any other drug use Home medications: ?? Patient seen and examined on the bedside Sedated and on mechanical ventilation Patient is on trach tube and ventilation through the tube. MRI of head demonstrated Acute infarction within the right cerebellar hemisphere measuring 3.2 x 0.7 cm. Left frontoparietal increased T2 signal with mild diffusion restriction signal. This could represent subacute infarct or underlying mass/lesion. Objective vital signs Vital Sign Date Time Temp Pulse Resp B/P (MAP) Pulse Ox O2 Delivery O2 Flow Rate FiO2 09/11/24 15:59 81 20 155/84 (107) 98 30 09/11/24 14:00 Mechanical Ventilator+ 09/11/24 08:00 99.1 99.1 Total Intake and Output 09/10/24 09/10/24 09/11/24 15:00 23:00 07:00 Intake Total 947.808 ml 1545.472 ml 1798.928 ml Output Total 800 ml 1600 ml Balance 947.808 ml 745.472 ml 198.928 ml medications Current Medications Medications Dose Ordered Sig/Nikki Route Start Time Stop Time Status Last Admin Dose Admin Diagnostic Test (Pha) 1 strip ACHS 08/19/24 17:00 Cancel Norepinephrine Bitartrate 250 ml @ 3.75 mls/hr Q24H IV 08/19/24 17:15 Cancel Midazolam HCl 50 ml @ 1 mls/hr Q24H IV 08/19/24 17:15 09/09/24 19:10 1 MLS/HR Ipratropium [place] 0.5 mg Q6HR NEB 08/19/24 18:00 09/11/24 11:25 0.5 MG Albuterol 2.5 mg Q6HR NEB 08/19/24 18:00 09/11/24 11:25 2.5 MG Pantoprazole Sodium 40 mg BID IV 08/20/24 22:00 09/11/24 09:27 40 MG Acetaminophen 650 mg Q6HP PRN DC 08/21/24 01:45 08/23/24 03:36 650 MG Epoetin Aquilino-epbx 10,000 unit TUTHSA@2100 SC 08/26/24 21:00 09/10/24 21:13 10,000 UNIT Albumin Human 100 ml @ 100 mls/hr PRN PRN IV 08/26/24 06:45 08/27/24 07:45 100 MLS/HR Norepinephrine Bitartrate 32 mg/ Sodium Chloride 250 ml @ 0.469 mls/ hr Q24H IV 08/27/24 13:00 09/06/24 01:01 0.469 MLS/HR Fentanyl Citrate 250 ml @ 2.5 mls/hr Q24H IV 08/30/24 20:00 09/11/24 16:25 17.5 MLS/HR Micafungin Sodium 100 mg/Sodium Chloride 100 ml @ 100 mls/hr DAILY@0900 IV 09/01/24 09:00 09/11/24 09:00 100 MLS/HR Linezolid 300 ml @ 150 mls/hr Q12HR IV 08/31/24 22:00 09/11/24 09:38 150 MLS/HR Heparin Sodium (Porcine) 5,000 units Q12HR SC 08/31/24 22:00 09/11/24 09:26 5,000 UNITS Sodium Chloride 10 ml QSHIFT@10,22 IV 08/31/24 22:00 09/11/24 09:28 10 ML Artificial Tears 2 drop Q4HR PRN EACHEYE 09/02/24 10:45 09/07/24 05:15 2 DROP Dextrose 50 ml UD PRN IV 09/03/24 21:00 Meropenem 50 ml @ 17 mls/hr Q12H IV 09/05/24 00:00 09/11/24 13:31 17 MLS/HR Hydralazine HCl 50 mg Q8HR PRN PO 09/05/24 09:15 Hydralazine HCl 20 mg Q6HP PRN IV 09/08/24 11:45 09/09/24 09:57 20 MG Enteral Nutritional Formula 1,000 ml 60ML/HR GT 09/08/24 22:15 Insulin Human Regular AC SC 09/09/24 07:00 09/11/24 11:59 3 UNITS Diagnostic Test (Pha) 1 strip ACHS 09/09/24 07:00 09/11/24 11:54 1 STRIP Sodium Chloride 1,000 ml @ 75 mls/hr [id number] IV 09/10/24 08:45 09/11/24 05:45 75 MLS/HR Purified Water 300 ml Q6HR GT 09/10/24 12:00 09/11/24 13:32 300 ML Propofol 100 ml @ 3.672 mls/ hr Q24H IV 09/10/24 22:30 09/11/24 15:41 22.032 MLS/HR Insulin Human Regular HS SC 09/10/24 22:00 09/10/24 22:59 2 UNITS Dopamine HCl/ Dextrose 250 ml @ 9.24 mls/hr Q24H IV 09/11/24 11:15 09/11/24 12:00 9.24 MLS/HR Aspirin 81 mg DAILY PO 09/12/24 10:00 Clopidogrel Bisulfate 75 mg DAILY PO 09/12/24 10:00 Atorvastatin Calcium 80 mg HS PO 09/12/24 22:00 Diagnostic Test (Pha) 1 strip Q6HR 09/11/24 18:00 Dextrose 50 ml UD PRN IV 09/11/24 16:45 Examination Examination: Constitutional: Patient sedated and on mechanical ventilation, RASS -2 Gen - mild conjuctival pallor, no icterus, no cyanosis, no clubbing, no LAD, 1+ edema in the feet . Skin - Patients skin is warm and dry. HEENT - normocephalic, atraumatic, moist mucous membranes. Neck - full ROM, no LAD, no jvd Pulmonary - B/L air entry present, diffuse rales, no wheezing, no stridor. cardiovascular - regular S1,S2 heard, no added sounds, no murmurs heard. GI - soft abdomen. no hepatospleenomegaly. bowel sounds hypoactive sacrum- ulcer seen , stage 2 ulcer with bloody oozing in gluteal fold Neurological - patient was sedated and on mechanical ventilation. Gag reflex present, asymmetric pupil and reactive laboratory and microbiology Laboratory Tests 09/11/24 08:59 09/11/24 03:20 Test 09/11/24 03:20 Range/Units Serum Glucose 173 H 74-106 mg/dL Microbiology Date/Time Source Procedure Growth Status 09/10/24 10:47 Catheter Tip Other Aerobic Culture - Preliminary Resulted 09/04/24 10:19 Blood Blood Culture - Final NO GROWTH AFTER 5 DAYS OF INCUBATION. Complete 08/31/24 15:08 Sputum Gram Stain - Final Complete 08/31/24 15:08 Respiratory Culture - Final Presumptive Mary albicans Complete 08/31/24 14:00 Urine - [place] Urine Culture - Final Complete Labs and/or images reviewed: Labs reviewed by me, Image(s) reviewed by me Problem List/Assessment/Plan Problem List/Assessment/Plan Assessment and plan: Neurology Acute ischemic stroke in the rt cerebellar hemisphere and Left frontoparietal Acute metabolic encephalopathy likely due to sepsis/HHS - MRI demonstrated Acute infarction within the right cerebellar hemisphere measuring 3.2 x 0.7 cm. Left frontoparietal increased T2 signal with mild diffusion restriction signal. This could represent subacute infarct or underlying mass/lesion. - on mechanical ventilation - Patient underwent tracheostomy yesterday. - Patient passed the window period of tPA therapy for ischemic stroke and also he has a recent history of GI bleeding in 1 week. - Consulted neurology - Continue aspirin 81 mg daily, clopidogrel 75 mg daily and atorvastatin 80 mg at HS Respiratory Acute hypoxic respiratory failure Probable aspiration pneumonia ARDS - on mechanical ventilation with FiO2 30%, peep 5 - chest x-ray shows bilateral patchy opacities - ABG compensated - duonebs q6hr - IV antibiotics meropenem, linezolid, micafungin - sputum culture showed growth of yeast Cardiovascular Shock due to sepsis possibly from aspiration Acute on chronic heart failure with reduced ejection fraction - echo showed LVEF< 40% - off norepinephrine Infectious disease Septic shock likely due to aspiration pneumonia Infected Sacral ulcer, unstageable pressure ulcer - on IV antibiotics - culture from sacral ulcer growing enterococcus - blood culture showed no growth - on linezolid Nephrology Metabolic alkalosis likely from intractable vomiting, resolved KATE on CKD likely due to be VMN from dehydration - Last dialysis on 09/07/24 and hold off dialysis per nephrology. - urine output improved - IV NS @ 75 ml/ hr. - Epotein alpha-epbx per protocol GI ?Gastroparesis ?Upper GI bleed - KUB shows nonobstructive bowel gas pattern - Protonix b.i.d. - 4 units of PRBC given, H&H stable - GI on board - CT with PO contrast showed no obstruction. - FOBT positive - Dobbhoff tube with enteral feeding Glucerna Endocrinology Uncontrolled diabetes mellitus with a hyperglycemia Morbid obesity - on insulin sliding scale - lantus 25 unit HS Skin - stage III big ulcer in the sacral area covered with eschar - consulted surgery for possible debridement. Diet: dobhoff tube DVT prophylaxis: heparin Left upper arm PICC placed on 08/31 Chavez's catheter placed on 09/09/24 Goals of care discussed with the patient's sister Sheree for over 27 mins. Full code Critical care time spent 48 minutes Plan discussed with Dr. Beck Plan discussed with: Patient, Other (Sister, RN) My Orders My Orders Orders - ELIO SANTOS RESIDENT Procedure Category Date Status Time Chest Portable XY 09/11/24 Resulted 04:00 Abg W/ Co-Ox RT 09/11/24 Logged 04:00 Ventilator Orders RT 09/11/24 Transmitted 07:37 Abg W/ Co-Ox RT 09/11/24 Logged 09:00 Glucose Blood PHA 09/11/24 In Process (Accu-Chek Comfort 18:00 Dextrose 50% Syringe PHA 09/11/24 In Process 16:45 Dietary Evaluation Review Recommendations by RD: Protein Supplementation, PPN/TPN Comments: Pt is at high risk of malnutrition due to prolonged vomiting leading to inadequate nutrient intake and hypermetabolic state secondary to acute inflammation. Recommendation: 1) Start PN/TPN per pharmacy 2) If GI is accessible, consider TF Pivot 1.5Cal @ 60ml/hr along with Pro-stat 1 pk TID. Start @ 10ml/hr, increase 10ml/hr Q4H until goal rate is reached. Advance TF rate slowly and gradually to prevent Refeeding syndrome. Water Flush 50ml Q4H if allowed. TF Provision --- TF at goal volume to provide 1440 ml total volume, 2160 kcal (+300 kcal via Pro-stat = 2460 kcal), 135 gm pro (+45 gm via ProStat = 180 gm), 1093 ml H20 (meets 100% est. kcal needs, 100% est. protein needs) 3) Monitor Potassium, Phosphate, Magnesium for Refeeding syndrome 4) Des 1 pk daily For DTI 5) Continue current plan of care Expected Outcomes/Goals: Blood glucose to improve Nutrient intake to meet at least 75% estimated needs FU 2-3 days Food and Nutrition Intake (Mod: <75% est energy req 7days Protein Calorie Malnutrition: Severe DANIELLEELIO RESIDENT September 11, 2024 17:07
[2024-09-11] MEDS: ACCU-CHEK COMFORT CURVE STRIP VI SCH (17:37)
--- NOTE | 2024-09-11 20:14 | DVHINCON2 ---
Date of service: September 11, [address] Payne Reason for Consultation Acute/subacute ischemic stroke History of Present Illness Mr. Moore is a 44 years old right-handed gentleman with a history of diabetes, kidney failure once on hemodialysis, obesity, the patient was brought to the hospital on 08/19/2024 by the family for altered mental status. At this time, he is extubated, sedated, slightly responds to verbal stimuli, but is very weak, and not able to provide a history the information is obtained from his sister, I have also talked to his nurse and reviewed the chart Four days prior to this admission, the family noted the patient was had nausea, vomiting, confusion/disorientation, thirsty, after the patient is brought to the hospital, he was intubated on 08/21/2023, he was also found to have severely elevated glucose level, respiratory acidosis, urinary tract infection, pneumonia, sepsis, hyponatremia. The patient was was extubated and had tracheostomy on 09/11/2023 Because of unequal pupil size, the patient was had a CT and then MR brain scan which showed two acute/subacute strokes, one was in the left hemisphere, and does not want right cerebellum hemispheres. But her his sister, the patient has no history of stroke Blood culture, 08/31/2024: Staphylococcus epidermidis, Staphylococcus hominis Stool occult blood, 09/07/2024: Positive UDS, 08/19/2024: Negative Plasma alcohol, 08/19/2024: Normal Urinalysis, 08/19/2024: WBC: 16, urine leukocyte esterase: Trace ABG 08/19/2024: Respiratory c acidosis WBC/HB/PLT/MCV, 08/19/2024: 37.8/14.8/159/86.1 08/25/2024: 34.8/7.7/180/89.5, 09/11/2024:17.2/10/635/86.8 PT/INR/PTT, 09/10/2024: 12.8/1.23/24.9 Na, 08/19/24: 114, 08/20/24: 123, 08/26/24: 134 BUN/CR, 08/19/2024: 112/8.94, 09/09/2024: 82/2.79, 09/11/2024: 81/2.42 HCO3, 08/19/2024: >40, 17, 08/20/2024: 37 Anion gap, 08/19/2024: 22.9999 Beta hydroxybutyric acid, 08/19/2024: 0.498 Lactic acid, 08/19/2024: 5.7, 4.6 HGB A1c, 08/19/2024: 11.7 Liver function tests, 09/07/2024: Unremarkable CT head, 09/11/2024: 1. Findings consistent with acute or subacute left MCA territory infarct. 2. No evidence of acute intracranial hemorrhage. 3. Partial opacification of the mastoid air cells bilaterally, likely effusions. Correlate clinically to exclude mastoiditis. CT head, 09/11/2024: Acute infarction within the right cerebellar hemisphere measuring 3.2 x 0.7 cm. Less pronounced diffusion restriction signal within the left frontoparietal lobe. Past Medical History Suspected diabetes, obesity, he had kidney failure are no was on hemodialysis previously Past Surgical History Left foot surgery Family History Hypertension, diabetes, heart disease Social History He smokes, but he was no history of alcohol or recreational substances abuse Allergies: Coded Allergies: NO KNOWN ALLERGIES (Unverified , 10/02/14) Current Medications Current Medications Medications (Trade) Dose Ordered Sig/Nikki Route PRN Reason Start Time Stop Time Status Last Admin Propofol 100 ml @ 3.672 mls/ hr Q24H IV 09/10/24 22:30 09/11/24 18:41 Insulin Human Regular (InsuLIN R) HS SC 09/10/24 22:00 09/10/24 22:59 Dopamine HCl/ Dextrose 250 ml @ 9.24 mls/hr Q24H IV 09/11/24 11:15 09/11/24 12:00 Aspirin 81 mg DAILY PO 09/12/24 10:00 Clopidogrel Bisulfate (Plavix) 75 mg DAILY PO 09/12/24 10:00 Atorvastatin Calcium (Lipitor) 80 mg HS PO 09/12/24 22:00 Diagnostic Test (Pha) (Accu-Chek Comfort Curve T) 1 strip Q6HR 09/11/24 18:00 09/11/24 17:37 Dextrose 50 ml UD PRN IV Blood Sugar LESS THAN 60 09/11/24 16:45 Review of Systems As above, the other systems are negative Vital Signs Vital Signs Date Time Temp Pulse Resp B/P (MAP) Pulse Ox O2 Delivery O2 Flow Rate FiO2 09/11/24 18:45 87 20 156/87 (110) 99 09/11/24 18:00 30 09/11/24 18:00 Mechanical Ventilator+ 09/11/24 08:00 99.1 99.1 Physical Exam The patient is well-nourished and well-developed with no distress. HEENT: Normocephalic, neck supple, no carotid bruits. The patient is status post tracheostomy (09/10/24) Lungs: Clear to auscultation Cardiovascular: Regular rate and region, S1, S2, no murmurs Abdomen: Soft, nontender, normal bowel sounds MENTAL STATUS: He is slight responds to verbal stimuli CRANIAL NERVES: Pupils are round and reactive, with a right side slightly bigger when the pupils are dilated. There are spontaneous blinking and possible conjugated eye movement. No signs of facial weakness. There are gagging or coughing reflexes SENSATION: Responses to pain stimuli. MOTOR: Normal tone in the upper and lower extremity. Normal muscle bulk. No fasciculations. No spontaneous movement. REFLEXES: Deep tendon reflexes are symmetrical. No pathological reflexes. CEREBELLAR/COORDINATION: Deferred GAIT/STATION: deferred. Labs/Diagnostic Data Labs Test 09/11/24 11:55 09/11/24 08:59 09/11/24 08:54 09/11/24 07:25 Range/Units POC Glucose 177 H 70-106 mg/dl Potassium Level 3.7 3.5-5.1 mmol/L Blood Gas Specimen Type Arterial Blood Gas Sample Site Left radial Blood Gas Patient Temperature 37.0 Arterial Blood Date Drawn [id number] Arterial Blood pH 7.527 H 7.350-7.450 Arterial Blood Partial Pressure CO2 31.6 L 35.0-48.0 mmHg Arterial Blood Partial Pressure O2 90.1 83.0-108.0 mmHg Arterial Blood HCO3 25.6 21.0-28.0 mmol/L Arterial Blood Oxygen Saturation 96.4 94.0-98.0 % Arterial Blood Base Excess 3.2 H -2.0-3.0 mmol/L Arterial Blood Oxyhemoglobin 95.6 94.0-98.0 % Arterial Blood Carboxyhemoglobin 0.3 L 0.5-1.5 % Arterial Blood Methemoglobin 0.5 0.0-1.5 % Jasvir Test Modified Blood Gas Total Hemoglobin 11.10 L 13.5-17.5 g/dL Blood Gas Set Respiration Rate 20.0 Blood Gas Modality Vent - ac FiO2 % 30.0 Blood Gas Tidal Volume 550.0 Blood Gas PEEP or CPAP 5.0 Blood Gas Critical Value Read Back Yes Blood Gas Notified Whom Angela castro Blood Gas Notified Time [id number] Blood Gas Notified By Antonio territory representative Test 09/11/24 03:20 09/10/24 03:23 09/09/24 15:20 09/08/24 06:05 Range/Units White Blood Count 17.2 H 4.4-10.8 10^3/uL Red Blood Count 3.40 L 4.5-5.90 10^6/uL Hemoglobin 10.0 L 13.5-17.5 g/dL Hematocrit 29.5 L 41.0-53.0 % Mean Corpuscular Volume 86.8 80.0-100.0 fL Mean Corpuscular Hemoglobin 29.5 28.0-32.0 pg Mean Corpuscular Hemoglobin Concent 34.0 32.0-36.0 g/dL Red Cell Distribution Width 15.5 H 11.8-14.3 % Platelet Count 635 H 140-450 10^3/uL Mean Platelet Volume 7.0 6.9-10.8 fL Neutrophils (%) (Auto) 71.6 37.0-80.0 % Lymphocytes (%) (Auto) 15.8 10.0-50.0 % Monocytes (%) (Auto) 7.8 0.0-12.0 % Eosinophils (%) (Auto) 3.7 0.0-7.0 % Basophils (%) (Auto) 1.1 0.0-2.0 % Neutrophils # (Auto) 12.3 H 1.6-8.6 10 ^3/uL Lymphocytes # (Auto) 2.7 0.4-5.4 10 ^3/uL Monocytes # (Auto) 1.3 0-1.3 10 ^3/uL Eosinophils # (Auto) 0.6 0-0.8 10 ^3/uL Basophils # (Auto) 0.2 0-0.2 10 ^3/uL Nucleated Red Blood Cells 0.0 % Sodium Level 144 136-145 mmol/L Chloride Level 103 98-107 mmol/L Carbon Dioxide Level 27 20-31 mmol/L Anion Gap 14 5-15 Blood Urea Nitrogen 81 *H 9-23 mg/dL Creatinine 2.42 H 0.700-1.30 mg/dL Glomerular Filtration Rate Calc 33 >90 mL/min BUN/Creatinine Ratio 33.5 H 10.0-20.0 Serum Glucose 173 H 74-106 mg/dL Calcium Level 8.6 L 8.7-10.4 mg/dL Platelet Estimate Markedly increased Prothrombin Time 12.8 H 9.3-11.8 sec Prothrombin Time INR 1.23 H 0.9-1.15 Activated Partial Thromboplast Time 24.9 24.5-34.5 SEC Urine Color Light-yellow Yellow Urine Clarity Clear Clear Urine pH 5.5 5.0-9.0 Urine Specific Roann 1.015 1.001-1.035 Urine Protein 1+ H Negative Urine Ketones Negative Negative Urine Blood 2+ H Negative /uL Urine Nitrite Negative Negative Urine Bilirubin Negative Negative Urine Urobilinogen Normal Negative mg/dL Urine Leukocyte Esterase Trace Negative /uL Urine RBC 62 0 - 3 /hpf Urine Microscopic WBC 5 H 0-3 /HPF Urine Squamous Epithelial Cells Few <5 /hpf Urine Bacteria None seen None Seen /hpf Urine Hyaline Casts Few 0 - 2 /lpf Urine Glucose 1+ H Normal mg/dL Specimen Drawn By Kristie [facility] Test 09/07/24 17:00 09/07/24 01:50 09/02/24 07:20 09/02/24 03:14 Range/Units Stool Occult Blood Positive Negative Stool Occult Blood Sample #3 Negative Phosphorus Level 4.9 2.4-5.1 mg/dL Magnesium Level 1.8 1.6-2.6 mg/dL Total Bilirubin < 0.2 L 0.2-1.0 mg/dL Aspartate Amino Transferase (AST) 19 13-40 U/L Alanine Aminotransferase (ALT) 14 7-40 U/L Alkaline Phosphatase 334 H 46-116 U/L Total Protein 7.0 5.7-8.2 g/dL Albumin 3.1 L 3.2-4.8 g/dL Blood Gas Spontaneous Rate 24 Blood Gas Inspiratory Pressure 26.0 Bl Gas Inspiratory/Expiratory Ratio 1:2.1 Differential Total Cells Counted 100.0 100 Neutrophils % (Manual) 78 37.0-80.0 Band Neutrophils % (Manual) 2 Lymphocytes % (Manual) 14 10.0-50.0 Monocytes % (Manual) 3 0-12 Eosinophils % (Manual) 0 0-7 Basophils % (Manual) 0 0.0-2.0 Metamyelocytes % (manual) 1 Myelocytes % (Manual) 2 Promyelocytes % (Manual) 0 Blast Cells % (Manual) 0 Reactive Lymphocytes 0 Large Platelets Few Triglycerides Level 199 H < 150 mg/dL Test 09/01/24 02:58 08/27/24 06:51 08/25/24 20:00 08/24/24 03:17 Range/Units Giant Platelets Few Blood Gas Spontaneous Tidal Volume 603 Blood Gas Comments Pc 18 i-time .8 Red Blood Cell Morphology Normal Random Vancomycin Level 12.2 H 5-10 ug/mL Test 08/20/24 13:11 08/20/24 12:24 08/19/24 20:50 08/19/24 16:55 Range/Units Hepatitis A IgM Antibody Negative Hepatitis B Surface Antigen Negative Negative Hepatitis B Core IgM Antibody Negative Negative Hepatitis C Antibody Negative Negative Influenza Type A Antigen Negative Negative Influenza Type B Antigen Negative Negative SARS-CoV-2 Antigen (Rapid) Negative NEGATIVE Blood Gas Pressure Support 26 D-Dimer, Quantitative 1.19 H 0.0-0.49 mg/L FEU Creatine Kinase 115 46-171 U/L Amylase Level 47 30-118 U/L Lipase 41 12-53 U/L Test 08/19/24 16:07 08/19/24 13:07 08/19/24 11:25 08/19/24 11:00 Range/Units Blood Gas Liter Flow 15.00 Lactic Acid Level 4.6 *H 0.4-2.0 mmol/L Urine Renal Epithelial Cells Few None Seen /hpf Urine Amorphous Crystals Few None Seen /hpf Urine Mucus Few None Seen Urine Sperm Present None Seen /hpf Urine Creatinine 77.13 30.0-125.0 mg/dL Urine Sodium 15 L 40-220 mmol/L Urine Opiates Screen Neg NEGATIVE Urine Fentanyl Screen Neg NEGATIVE Urine Barbiturates Screen Neg NEGATIVE Urine Phencyclidine Screen Neg NEGATIVE Urine Amphetamines Screen Neg NEGATIVE Urine Benzodiazepines Screen Neg NEGATIVE Urine Cocaine Screen Neg NEGATIVE Urine Cannabinoids Screen Neg NEGATIVE Hemoglobin A1c 11.7 H <5.7 % A1C Beta-Hydroxybutyric Acid 0.498 H < 0.4 mmol/L Plasma/Serum Blood Alcohol < 3.0 <10 mg/dL Microbiology Date/Time Source Procedure Growth Status 09/10/24 10:47 Catheter Tip Other Aerobic Culture - Preliminary Resulted 09/04/24 10:19 Blood Blood Culture - Final NO GROWTH AFTER 5 DAYS OF INCUBATION. Complete 08/31/24 15:08 Sputum Gram Stain - Final Complete 08/31/24 15:08 Respiratory Culture - Final Presumptive Mary albicans Complete 08/31/24 14:00 Urine - [place] Urine Culture - Final Complete Assessment Left hemisphere stroke Right cerebellum hemispheres stroke Altered mental status Metabolic encephalopathy Hypoxic encephalopathy Toxic encephalopathy Uncontrolled diabetes Acidosis Sepsis, septic shock Urinary tract infection Pneumonia Kidney failure Respiratory failure Intermittently anisocoria, uncertain clinical significance Plan/Recommendation Monitoring Supportive treatment Lipitor profile EEG Carotid Doppler ESTHER ICU care Stabilize vitals/pressor drip Respiratory support/vent management Oxygen Antibiotics Lipitor 80 mg daily Plavix 75 mg daily Aspirin 81 mg daily DVT prophylaxis/heparin subQ GI prophylaxis/Protonix More recommendation per clinical course Prognosis: Guarded Critical care time spent is 45 minutes This medical document was created using an electronic medical record system with [employer] dictation system. Although this document has been carefully reviewed, there may still be some phonetic and typographical errors. These areas are purely typographical due to imperfections of the software programs, and do not reflect any compromise in the patient's medical care. Plan discussed with: Other CHRISTOPHE CHÁVEZ MD September 11, 2024 20:14
--- NOTE | 2024-09-11 22:35 | DVHPN2 ---
Progress Note - Dictate Date Seen: September 11, 2024 Has the PT tested + for MRSA If YES, has PT been informed?: No Medical Necessity Reason Pt with a Central, PICC or Fol: Yes The following are medically ne: Central Line, Chavez Catheter Reason for chavez catheter: Strict I&O Subjective Patient is waking up but extremely weak He failed CPAP trial s/p tracheostomy Patient is getting enteral tube feedings through the Dobbhoff tube into the small bowel at 60 mL/hour low intermittent suction is ongoing from the NG tube; NG tube output somewhat dark in color but less than 200 ml/shift Patient is having bowel movements; has flexiseal in place vital signs Vital Sign Date Time Temp Pulse Resp B/P (MAP) Pulse Ox O2 Delivery O2 Flow Rate FiO2 09/11/24 22:22 135/79 09/11/24 22:04 86 20 98 30 09/11/24 20:00 98.7 98.7 09/11/24 20:00 Mechanical Ventilator+ Total Intake and Output 09/10/24 09/10/24 09/11/24 15:00 23:00 07:00 Intake Total 947.808 ml 1545.472 ml 1873.928 ml Output Total 800 ml 1600 ml Balance 947.808 ml 745.472 ml 273.928 ml medications Current Medications Medications Dose Ordered Sig/Nikki Route Start Time Stop Time Status Last Admin Dose Admin Diagnostic Test (Pha) 1 strip ACHS 08/19/24 17:00 Cancel Norepinephrine Bitartrate 250 ml @ 3.75 mls/hr Q24H IV 08/19/24 17:15 Cancel Midazolam HCl 50 ml @ 1 mls/hr Q24H IV 08/19/24 17:15 09/09/24 19:10 1 MLS/HR Ipratropium Nipomo 0.5 mg Q6HR NEB 08/19/24 18:00 09/11/24 21:15 0.5 MG Albuterol 2.5 mg Q6HR NEB 08/19/24 18:00 09/11/24 21:15 2.5 MG Pantoprazole Sodium 40 mg BID IV 08/20/24 22:00 09/11/24 22:21 40 MG Acetaminophen 650 mg Q6HP PRN CA 08/21/24 01:45 08/23/24 03:36 650 MG Epoetin Aquilino-epbx 10,000 unit TUTHSA@2100 SC 08/26/24 21:00 09/10/24 21:13 10,000 UNIT Albumin Human 100 ml @ 100 mls/hr PRN PRN IV 08/26/24 06:45 08/27/24 07:45 100 MLS/HR Norepinephrine Bitartrate 32 mg/ Sodium Chloride 250 ml @ 0.469 mls/ hr Q24H IV 08/27/24 13:00 09/06/24 01:01 0.469 MLS/HR Fentanyl Citrate 250 ml @ 2.5 mls/hr Q24H IV 08/30/24 20:00 09/11/24 16:25 17.5 MLS/HR Micafungin Sodium 100 mg/Sodium Chloride 100 ml @ 100 mls/hr DAILY@0900 IV 09/01/24 09:00 09/11/24 09:00 100 MLS/HR Linezolid 300 ml @ 150 mls/hr Q12HR IV 08/31/24 22:00 09/11/24 22:21 150 MLS/HR Heparin Sodium (Porcine) 5,000 units Q12HR SC 08/31/24 22:00 09/11/24 09:26 5,000 UNITS Sodium Chloride 10 ml QSHIFT@10,22 IV 08/31/24 22:00 09/11/24 09:28 10 ML Artificial Tears 2 drop Q4HR PRN EACHEYE 09/02/24 10:45 09/07/24 05:15 2 DROP Dextrose 50 ml UD PRN IV 09/03/24 21:00 Meropenem 50 ml @ 17 mls/hr Q12H IV 09/05/24 00:00 09/11/24 13:31 17 MLS/HR Hydralazine HCl 50 mg Q8HR PRN PO 09/05/24 09:15 Hydralazine HCl 20 mg Q6HP PRN IV 09/08/24 11:45 09/09/24 09:57 20 MG Enteral Nutritional Formula 1,000 ml 60ML/HR GT 09/08/24 22:15 Insulin Human Regular AC SC 09/09/24 07:00 09/11/24 17:35 6 UNITS Diagnostic Test (Pha) 1 strip ACHS 09/09/24 07:00 09/11/24 17:00 1 STRIP Sodium Chloride 1,000 ml @ 75 mls/hr [id number] IV 09/10/24 08:45 09/11/24 21:07 75 MLS/HR Purified Water 300 ml Q6HR GT 09/10/24 12:00 09/11/24 17:37 300 ML Propofol 100 ml @ 3.672 mls/ hr Q24H IV 09/10/24 22:30 09/11/24 22:22 22.032 MLS/HR Insulin Human Regular HS SC 09/10/24 22:00 09/10/24 22:59 2 UNITS Dopamine HCl/ Dextrose 250 ml @ 9.24 mls/hr Q24H IV 09/11/24 11:15 09/11/24 12:00 9.24 MLS/HR Aspirin 81 mg DAILY PO 09/12/24 10:00 Clopidogrel Bisulfate 75 mg DAILY PO 09/12/24 10:00 Atorvastatin Calcium 80 mg HS PO 09/12/24 22:00 Diagnostic Test (Pha) 1 strip Q6HR 09/11/24 18:00 09/11/24 17:37 1 STRIP Dextrose 50 ml UD PRN IV 09/11/24 16:45 objective General: Mechanically ventilated, sedated HEENT: Head is normocephalic and atraumatic. Pupils are equal, round, and reactive to light Neck: Supple with no cervical lymphadenopathy. Heart: Regular rate without murmur, rub, or gallop. Lungs: Bilateral crackles, most prominent on bases Abdomen: No external sign of injury. Bowel sounds present Abdomen is soft, nontender. Extremities: faint peripheral pulses. There is no clubbing, no cyanosis, and no edema. Skin: No rash. laboratory and microbiology Laboratory Tests 09/11/24 08:59 09/11/24 03:20 Test 09/11/24 03:20 Range/Units Serum Glucose 173 H 74-106 mg/dL Problems(with codes): (1) Gastroparesis (2) Anemia (3) Metabolic alkalosis (4) Diabetes type 2, uncontrolled Prognosis PLAN Neurologyevaluation BRAIN MRI IMPRESSION: 1. Acute infarction within the right cerebellar hemisphere measuring 3.2 x 0.7 cm 2. Left frontoparietal increased T2 signal with mild diffusion restriction signal. This could represent subacute infarct or underlying mass/lesion. Recommend MRI brain with contrast to exclude underlying lesion/mass. 3. Large bilateral mastoid effusions. PLAN Clamp NGT and then D/C Continue dobhoff feedings Supportive care IV Reglan ? D/C Flexiseal ; however pt has sacral decubitis Surgical f/u for debridement Dietary Evaluation Review Recommendations by RD: Protein Supplementation, PPN/TPN Comments: Pt is at high risk of malnutrition due to prolonged vomiting leading to inadequate nutrient intake and hypermetabolic state secondary to acute inflammation. Recommendation: 1) Start PN/TPN per pharmacy 2) If GI is accessible, consider TF Pivot 1.5Cal @ 60ml/hr along with Pro-stat 1 pk TID. Start @ 10ml/hr, increase 10ml/hr Q4H until goal rate is reached. Advance TF rate slowly and gradually to prevent Refeeding syndrome. Water Flush 50ml Q4H if allowed. TF Provision --- TF at goal volume to provide 1440 ml total volume, 2160 kcal (+300 kcal via Pro-stat = 2460 kcal), 135 gm pro (+45 gm via ProStat = 180 gm), 1093 ml H20 (meets 100% est. kcal needs, 100% est. protein needs) 3) Monitor Potassium, Phosphate, Magnesium for Refeeding syndrome 4) Des 1 pk daily For DTI 5) Continue current plan of care Expected Outcomes/Goals: Blood glucose to improve Nutrient intake to meet at least 75% estimated needs FU 2-3 days Food and Nutrition Intake (Mod: <75% est energy req 7days Protein Calorie Malnutrition: Severe Plan discussed with: Other (ICU Nurse and DR Santos) ALDAIR YOUSSEF MD September 11, 2024 22:35
[2024-09-11 23:02] LABS: Cholesterol 200 mg/dL (< 200); HDL Cholesterol 21 mg/dL (40-59); LDL Cholesterol 134 mg/dL (< 100); Triglycerides 351 mg/dL (< 150)
--- NOTE | 2024-09-11 23:06 | DVH ---
Carotid Duplex Clinical History: CVA Comparison: None Technique: Duplex Doppler evaluation of the extracranial carotid and vertebral arteries including color Doppler and spectral/pulsed waveform analysis was performed. Findings: RIGHT SIDE: No significant atherosclerotic plaque noted. The peak systolic velocities are 95 cm/s in the CCA, 71 cm/s in the ICA. The ICA/CCA ratio is 0.8. The external carotid artery is patent with peak systolic velocity of 140 cm/s proximally. There is appropriate antegrade flow in the right vertebral artery. LEFT SIDE: No significant atherosclerotic plaque noted. The peak systolic velocities are 109 cm/s in the CCA, 64 cm/s in the ICA. The ICA/CCA ratio is 0.6. The external carotid artery is patent with peak systolic velocity of 57 cm/s proximally. There is appropriate antegrade flow in the left vertebral artery. IMPRESSION: No evidence of hemodynamically significant stenosis in the carotid arteries. Reference: Radiology 2003; 229:340-346 Normal ICA PSV is <125 cm/sec and no plaque or intimal thickening is visible sonographically addition al criteria include ICA/CCA PSV ratio <2.0 and ICA EDV <40 cm/sec <50% ICA stenosis ICA PSV is <125 cm/sec and plaque or intimal thickening is visible sonographically additional criteria include ICA/CCA PSV ratio <2.0 and ICA EDV <40 cm/sec 50-69% ICA stenosis ICA PSV is 125-230 cm/sec and plaque is visible sonographically additional criter ia include ICA/CCA PSV ratio of 2.0-4.0 and ICA EDV of 40-100 cm/sec 70% ICA stenosis but less than near occlusion ICA PSV is >230 cm/sec and visible plaque and luminal narrowing are seen at guerin-scale and color Doppler ultrasound (the higher the Doppler parameters lie above the threshold of 230 cm/sec, the greater the likelihood of severe disease) additional criteria include ICA/CCA PSV ratio >4 and ICA EDV >100 cm/sec
[2024-09-12] VITALS (97 sets, daily range): BP systolic 102–171; BP diastolic 57–103; PULSE 73–139; RESP 14–29; TEMP 98.2–100.8; O2SAT 96–100
[2024-09-12] MEDS: Pivot 1.5 Cal One Liter GT SCH (03:52)
[2024-09-12 03:55] LABS: Hemoglobin 7.4 g/dL (13.5-17.5)
[2024-09-12 03:57] LABS: Hematocrit 24.2 % (41.0-53.0); Mean Corpuscular Hemoglobin 28.5 pg (28.0-32.0); Mean Corpuscular Hgb Conc. 30.6 g/dL (32.0-36.0); Mean Corpuscular Volume 93.2 fL (80.0-100.0); Platelet Count (auto) 108 10^3/uL (140-450); White Blood Cell 25.8 10^3/uL (4.4-10.8)
[2024-09-12 04:11] LABS: Anion Gap 22 (5-15); Chloride 102 mmol/L (98-107); Sodium 137 mmol/L (136-145)
[2024-09-12 04:18] LABS: BUN/Creatinine Ratio 14.5 (10.0-20.0); Basophils % (manual) 0 (0.0-2.0); Blast Cells 0; Eosinophils % (manual) 0 (0-7); Metamyelocytes % 0; Myelocytes % 0; Promyelocytes % 0; Reactive Lymphocytes 0
[2024-09-12 04:27] LABS: Blood Urea Nitrogen 40 mg/dL (9-23); Carbon Dioxide 13 mmol/L (20-31); Glucose 109 mg/dL (74-106); Potassium 5.5 mmol/L (3.5-5.1)
--- NOTE | 2024-09-12 05:50 | DVH ---
CHEST RADIOGRAPH Indication: Mechanical ventilation Technique: Single frontal view of the chest was obtained COMPARISON: XY CHEST PORTABLE on DOS: 09/11/24, XY CHEST XRAY 1 VIEW on DOS: 09/10/24, XY CHEST PORTABLE on DOS: 09/10/24, XY CHEST PORTABLE on DOS: 09/09/24, XY CHEST PORTABLE on DOS: 09/08/24 FINDINGS: Lines and Tubes: Unchanged. Lungs: Stable appearing moderate diffuse increased prominence of the interstitial lung markings witho ut evidence of focal consolidation. Pleura: No effusion. No pneumothorax. Cardiomediastinal contours: Unremarkable Bones: Unremarkable IMPRESSION: 1. Stable diffuse bowel interstitial prominence without evidence of focal consolidation. 2. Lines and tubes unchanged.
[2024-09-12] MEDS: FUROSEMIDE 20 MG/2 ML VIAL IV ONE (06:02)
[2024-09-12] MEDS: InsuLIN REG 1unit/0.01ml Soln (100units/ml) IV ONE (06:04)
[2024-09-12 06:34] LABS: Base Excess 3.3 mmol/L (-2.0-3.0)
[2024-09-12 06:46] LABS: Band Neutrophils % (manual) 2; Lymphocytes % (manual) 8 (10.0-50.0); Monocytes % (manual) 2 (0-12); Smudge Cells 1 /100 WBC
[2024-09-12 06:47] LABS: Platelet Estimate Decreased
--- NOTE | 2024-09-12 09:17 | DVHPN2 ---
Subjective Patient was a 44-year-old male with a past medical history of diabetes presented to the ER with a chief complaint of intractable vomitings and altered level of consciousness. According to the sister patient has been vomiting persistently for 7-10 days before coming to the hospital. She reports that he took a shot of Ozempic before the vomiting started. While in the ER patient was altered and was not able to protect his airways following which it was decided to intubate him and put him on mechanical ventilation. Before intubation when he was laid flat, had vomiting coffee-ground and aspirated. After intubation patient underwent bronchoscopy with removal of mucus plugs from left upper and left lower lung. Past medical history: Diabetes Past surgical history: Left foot surgery Social history: Smokes 1 pack of cigarettes per day, denied alcohol or any other drug use Home medications: ?? Patient seen and examined on the bedside Sedated and on mechanical ventilation Patient is on trach tube and ventilation through the tube. MRI of head demonstrated Acute infarction within the right cerebellar hemisphere measuring 3.2 x 0.7 cm. Left frontoparietal increased T2 signal with mild diffusion restriction signal. This could represent subacute infarct or underlying mass/lesion. 5/10- CBC with significant drop in all lines, questionable dilutional drop. We will redraw. Patient has Friedman good output, rectal tube with blood green stained bowel full, patient has a sacral wound and is high risk infectious. Patient remains on dopamine at 1 for renal protective per nephrology to manage. Patient was getting NG feeds and OG tube in place for? Possible worsening obstruction. Patient did come with concern for GI bleed and was intubated for airway protection. Patient did also require bronch to remove plugs. Stay had complication of carotid dialysis which was repaired. When trying to sedation vacation and CPAP patient had poor response and follow up through CT head showed large strokes x2. We will wait for Neurology clearance before trying CPAP trial. Today we will repeat CBC and BMP as there was some hyperkalemia and Lasix was given. We will try sedation vacation to evaluate neuro function but currently no cough or gag reflex. Patient was on propofol and fentanyl. We will try sedation vacation trial. No CPAP trial today. Reviewed: Care Plan, H&P, Labs, Medications, Previous Orders, Radiology, Other (Consultations) Changes from previous H/P or p: No Changes General: Per HPI Objective Vitals Vital Signs Date Time Temp Pulse Resp B/P (MAP) Pulse Ox O2 Delivery O2 Flow Rate FiO2 09/12/24 09:04 85 20 112/66 (81) 99 30 09/12/24 08:00 98.5 98.5 09/12/24 07:30 Mechanical Ventilator+ Intake/Output Intake and Output 09/12/24 07:00 Intake Total 4848.672 ml Output Total 3600 ml Balance 1248.672 ml Intake Oral 1280 ml IV Total 2982.672 ml Tube Feeding 586 ml Output Urine Total 3250 ml Gastric Drainage Total 350 ml Exam Constitutional: Patient sedated and on mechanical ventilation, RASS -2 Gen - mild conjuctival pallor, no icterus, no cyanosis, no clubbing, no LAD, 1+ edema in the feet . Skin - Patients skin is warm and dry. HEENT - normocephalic, atraumatic, moist mucous membranes. Neck - full ROM, no LAD, no jvd Pulmonary - B/L air entry present, diffuse rales, no wheezing, no stridor. cardiovascular - regular S1,S2 heard, no added sounds, no murmurs heard. GI - soft abdomen. no hepatospleenomegaly. bowel sounds hypoactive sacrum- ulcer seen , stage 2 ulcer with bloody oozing in gluteal fold Neurological - patient was sedated and on mechanical ventilation. Gag reflex present, asymmetric pupil and reactive General Appearance: Other (Intubated and sedated) HEENT: Atraumatic Lungs: Other (Mechanical ventilation sounds) Cardiovascular: Normal S1, Normal S2, Other (Tachycardia) Abdomen: Normal bowel sounds, Soft Genitourinary: Other (Friedman's) Neuro: Other (Intubated and sedated) Psych/Mental Status: Other (Intubated and sedated) Medications Current Medications Medications Dose Ordered Sig/Nikki Route Start Time Stop Time Status Last Admin Dose Admin Diagnostic Test (Pha) 1 strip ACHS 08/19/24 17:00 Cancel Norepinephrine Bitartrate 250 ml @ 3.75 mls/hr Q24H IV 08/19/24 17:15 Cancel Midazolam HCl 50 ml @ 1 mls/hr Q24H IV 08/19/24 17:15 09/09/24 19:10 1 MLS/HR Ipratropium [place] 0.5 mg Q6HR NEB 08/19/24 18:00 09/12/24 05:51 0.5 MG Albuterol 2.5 mg Q6HR NEB 08/19/24 18:00 09/12/24 05:51 2.5 MG Pantoprazole Sodium 40 mg BID IV 08/20/24 22:00 09/11/24 22:21 40 MG Acetaminophen 650 mg Q6HP PRN [place] 08/21/24 01:45 08/23/24 03:36 650 MG Epoetin Aquilino-epbx 10,000 unit TUTHSA@2100 SC 08/26/24 21:00 09/10/24 21:13 10,000 UNIT Albumin Human 100 ml @ 100 mls/hr PRN PRN IV 08/26/24 06:45 08/27/24 07:45 100 MLS/HR Norepinephrine Bitartrate 32 mg/ Sodium Chloride 250 ml @ 0.469 mls/ hr Q24H IV 08/27/24 13:00 09/06/24 01:01 0.469 MLS/HR Fentanyl Citrate 250 ml @ 2.5 mls/hr Q24H IV 08/30/24 20:00 09/12/24 06:04 17.5 MLS/HR Micafungin Sodium 100 mg/Sodium Chloride 100 ml @ 100 mls/hr DAILY@0900 IV 09/01/24 09:00 09/11/24 09:00 100 MLS/HR Heparin Sodium (Porcine) 5,000 units Q12HR SC 08/31/24 22:00 09/11/24 22:33 5,000 UNITS Sodium Chloride 10 ml QSHIFT@10,22 IV 08/31/24 22:00 09/11/24 22:33 10 ML Artificial Tears 2 drop Q4HR PRN EACHEYE 09/02/24 10:45 09/07/24 05:15 2 DROP Dextrose 50 ml UD PRN IV 09/03/24 21:00 Meropenem 50 ml @ 17 mls/hr Q12H IV 09/05/24 00:00 09/12/24 01:49 17 MLS/HR Hydralazine HCl 50 mg Q8HR PRN PO 09/05/24 09:15 Hydralazine HCl 20 mg Q6HP PRN IV 09/08/24 11:45 09/09/24 09:57 20 MG Enteral Nutritional Formula 1,000 ml 60ML/HR GT 09/08/24 22:15 09/12/24 03:52 1,000 ML Insulin Human Regular AC SC 09/09/24 07:00 09/11/24 17:35 6 UNITS Diagnostic Test (Pha) 1 strip ACHS 09/09/24 07:00 09/12/24 06:45 1 STRIP Sodium Chloride 1,000 ml @ 75 mls/hr [id number] IV 09/10/24 08:45 09/11/24 21:07 75 MLS/HR Purified Water 300 ml Q6HR GT 09/10/24 12:00 09/12/24 05:48 300 ML Propofol 100 ml @ 3.672 mls/ hr Q24H IV 09/10/24 22:30 09/12/24 06:45 22.032 MLS/HR Insulin Human Regular HS SC 09/10/24 22:00 09/11/24 22:33 3 UNITS Dopamine HCl/ Dextrose 250 ml @ 9.24 mls/hr Q24H IV 09/11/24 11:15 09/11/24 12:00 9.24 MLS/HR Aspirin 81 mg DAILY PO 09/12/24 10:00 Clopidogrel Bisulfate 75 mg DAILY PO 09/12/24 10:00 Atorvastatin Calcium 80 mg HS PO 09/12/24 22:00 Diagnostic Test (Pha) 1 strip Q6HR 09/11/24 18:00 09/12/24 06:02 1 STRIP Dextrose 50 ml UD PRN IV 09/11/24 16:45 Laboratory Results Laboratory Tests 09/12/24 03:20 Chemistry Test 09/12/24 03:20 Calcium Level 8.0 mg/dL (8.7-10.4) L Urinalysis Test 08/19/24 11:25 09/09/24 15:20 Urine Renal Epithelial Cells Few /hpf (None Seen) Urine Amorphous Crystals Few /hpf (None Seen) Urine Mucus Few (None Seen) Urine Sperm Present /hpf (None Seen) Urine Creatinine 77.13 mg/dL (30.0-125.0) Urine Sodium 15 mmol/L (40-220) L Urine Color Light-yellow (Yellow) Urine Clarity Clear (Clear) Urine pH 5.5 (5.0-9.0) Urine Specific [place] 1.015 (1.001-1.035) Urine Protein 1+ (Negative) H Urine Ketones Negative (Negative) Urine Blood 2+ /uL (Negative) H Urine Nitrite Negative (Negative) Urine Bilirubin Negative (Negative) Urine Urobilinogen Normal mg/dL (Negative) Urine Leukocyte Esterase Trace /uL (Negative) Urine RBC 62 /hpf (0 - 3) Urine Microscopic WBC 5 /HPF (0-3) H Urine Squamous Epithelial Cells Few /hpf (<5) Urine Bacteria None seen /hpf (None Seen) Urine Hyaline Casts Few /lpf (0 - 2) Urine Glucose 1+ mg/dL (Normal) H Blood Gas Results Test 09/12/24 06:25 Arterial Blood pH 7.499 (7.350-7.450) FiO2 % 30.0 Microbiology Microbiology Date/Time Source Procedure Growth Status 09/10/24 10:47 Catheter Tip Other Aerobic Culture - Preliminary Resulted 09/04/24 10:19 Blood Blood Culture - Final NO GROWTH AFTER 5 DAYS OF INCUBATION. Complete 08/31/24 15:08 Sputum Gram Stain - Final Complete 08/31/24 15:08 Respiratory Culture - Final Presumptive Mary albicans Complete 08/31/24 14:00 Urine - [place] Urine Culture - Final Complete Labs and/or images reviewed: Labs reviewed by me, Image(s) reviewed by me Assessment/Plan Assessment/Plan 09/12- CBC with significant drop in all lines, questionable dilutional drop. We will redraw. Patient has Friedman good output, rectal tube with blood green stained bowel full, patient has a sacral wound and is high risk infectious. Patient remains on dopamine at 1 for renal protective per nephrology to manage. Patient was getting NG feeds and OG tube in place for? Possible worsening obstruction. Patient did come with concern for GI bleed and was intubated for airway protection. Patient did also require bronch to remove plugs. Stay had complication of carotid dialysis which was repaired. When trying to sedation vacation and CPAP patient had poor response and follow up through CT head showed large strokes x2. We will wait for Neurology clearance before trying CPAP trial. Today we will repeat CBC and BMP as there was some hyperkalemia and Lasix was given. We will try sedation vacation to evaluate neuro function but currently no cough or gag reflex. Patient was on propofol and fentanyl. We will try sedation vacation trial. No CPAP trial today. Neurology Acute ischemic stroke in the rt cerebellar hemisphere and Left frontoparietal Acute metabolic encephalopathy likely due to sepsis/HHS - MRI demonstrated Acute infarction within the right cerebellar hemisphere measuring 3.2 x 0.7 cm. Left frontoparietal increased T2 signal with mild diffusion restriction signal. This could represent subacute infarct or underlying mass/lesion. - on mechanical ventilation - Patient underwent tracheostomy yesterday. - Patient passed the window period of tPA therapy for ischemic stroke and also he has a recent history of GI bleeding in 1 week. - Consulted neurology - Continue aspirin 81 mg daily, clopidogrel 75 mg daily and atorvastatin 80 mg at HS Respiratory Acute hypoxic respiratory failure Probable aspiration pneumonia ARDS - on mechanical ventilation with FiO2 30%, peep 5 - chest x-ray shows bilateral patchy opacities - ABG compensated - duonebs q6hr - IV antibiotics meropenem, linezolid, micafungin - sputum culture showed growth of yeast Cardiovascular Shock due to sepsis possibly from aspiration Acute on chronic heart failure with reduced ejection fraction - echo showed LVEF< 40% - off norepinephrine Infectious disease Septic shock likely due to aspiration pneumonia Infected Sacral ulcer, unstageable pressure ulcer - on IV antibiotics - culture from sacral ulcer growing enterococcus - blood culture showed no growth - on linezolid Nephrology Metabolic alkalosis likely from intractable vomiting, resolved KATE on CKD likely due to be VMN from dehydration - Last dialysis on 09/07/24 and hold off dialysis per nephrology. - urine output improved - IV NS @ 75 ml/ hr. - Epotein alpha-epbx per protocol GI ?Gastroparesis ?Upper GI bleed - KUB shows nonobstructive bowel gas pattern - Protonix b.i.d. - 4 units of PRBC given, H&H stable - GI on board - CT with PO contrast showed no obstruction. - FOBT positive - Dobbhoff tube with enteral feeding Glucerna Endocrinology Uncontrolled diabetes mellitus with a hyperglycemia Morbid obesity - on insulin sliding scale - lantus 25 unit HS Skin - stage III big ulcer in the sacral area covered with eschar - consulted surgery for possible debridement. Diet: dobhoff tube DVT prophylaxis: heparin Left upper arm PICC placed on 08/31 Friedman's catheter placed on 09/09/24 Plan discussed with: Other My Orders Orders - CUONG PENA MD Procedure Category Date Status Time Complete Blood Count LAB 09/12/24 Verified 09:10 Basic Metabolic Panel LAB 09/12/24 Verified 09:10 Date of Service: September 12, 2024 Billing Provider: CUONG PENA MD Common Visit Codes: [id number] CARE 30-74 MIN CUONG PENA MD September 12, 2024 09:17
[2024-09-12] MEDS: ASPirin 81 mg TAB PO SCH (09:39)
[2024-09-12] MEDS: CLOPIDOGREL BISULFATE 75 MG TAB PO SCH (09:39)
--- NOTE | 2024-09-12 11:34 | DVHPN2 ---
Progress Note Date Seen: September 12, 2024 Has the PT tested + for MRSA If YES, has PT been informed?: No Medical Necessity Reason Pt with a Central, PICC or Fol: Yes The following are medically ne: Central Line, Chavez Catheter Reason for chavez catheter: Strict I&O Subjective Review of Systems: RESPIRATORY:Abnormal Other Systems: Patient seen and examined by myself today in follow-up, patient trached on the ventilator Objective vital signs Vital Sign Date Time Temp Pulse Resp B/P (MAP) Pulse Ox O2 Delivery O2 Flow Rate FiO2 09/12/24 11:14 133/77 09/12/24 10:15 85 20 98 09/12/24 09:30 30 09/12/24 09:30 Mechanical Ventilator+ 09/12/24 08:00 98.5 98.5 Total Intake and Output 09/11/24 09/11/24 09/12/24 15:00 23:00 07:00 Intake Total 951.320 ml 1854.176 ml 2043.176 ml Output Total 1350 ml 2250 ml Balance 951.320 ml 504.176 ml -206.824 ml medications Current Medications Medications Dose Ordered Sig/Nikki Route Start Time Stop Time Status Last Admin Dose Admin Diagnostic Test (Pha) 1 strip ACHS 08/19/24 17:00 Cancel Norepinephrine Bitartrate 250 ml @ 3.75 mls/hr Q24H IV 08/19/24 17:15 Cancel Midazolam HCl 50 ml @ 1 mls/hr Q24H IV 08/19/24 17:15 09/09/24 19:10 1 MLS/HR Ipratropium [place] 0.5 mg Q6HR NEB 08/19/24 18:00 09/12/24 05:51 0.5 MG Albuterol 2.5 mg Q6HR NEB 08/19/24 18:00 09/12/24 05:51 2.5 MG Pantoprazole Sodium 40 mg BID IV 08/20/24 22:00 09/12/24 09:39 40 MG Acetaminophen 650 mg Q6HP PRN [place] 08/21/24 01:45 08/23/24 03:36 650 MG Epoetin Aquil[place]-epbx 10,000 unit TUTHSA@2100 SC 08/26/24 21:00 09/10/24 21:13 10,000 UNIT Albumin Human 100 ml @ 100 mls/hr PRN PRN IV 08/26/24 06:45 08/27/24 07:45 100 MLS/HR Norepinephrine Bitartrate 32 mg/ Sodium Chloride 250 ml @ 0.469 mls/ hr Q24H IV 08/27/24 13:00 09/06/24 01:01 0.469 MLS/HR Fentanyl Citrate 250 ml @ 2.5 mls/hr Q24H IV 08/30/24 20:00 09/12/24 06:04 17.5 MLS/HR Micafungin Sodium 100 mg/Sodium Chloride 100 ml @ 100 mls/hr DAILY@0900 IV 09/01/24 09:00 09/12/24 09:38 100 MLS/HR Heparin Sodium (Porcine) 5,000 units Q12HR SC 08/31/24 22:00 09/12/24 09:51 5,000 UNITS Sodium Chloride 10 ml QSHIFT@ IV 08/31/24 22:00 09/12/24 09:40 10 ML Artificial Tears 2 drop Q4HR PRN EACHEYE 09/02/24 10:45 09/07/24 05:15 2 DROP Dextrose 50 ml UD PRN IV 09/03/24 21:00 Meropenem 50 ml @ 17 mls/hr Q12H IV 09/05/24 00:00 09/12/24 01:49 17 MLS/HR Hydralazine HCl 50 mg Q8HR PRN PO 09/05/24 09:15 Hydralazine HCl 20 mg Q6HP PRN IV 09/08/24 11:45 09/09/24 09:57 20 MG Enteral Nutritional Formula 1,000 ml 60ML/HR GT 09/08/24 22:15 09/12/24 03:52 1,000 ML Insulin Human Regular AC SC 09/09/24 07:00 09/12/24 11:29 6 UNITS Diagnostic Test (Pha) 1 strip ACHS 09/09/24 07:00 09/12/24 11:31 1 STRIP Sodium Chloride 1,000 ml @ 75 mls/hr [id number] IV 09/10/24 08:45 09/12/24 11:16 75 MLS/HR Purified Water 300 ml Q6HR GT 09/10/24 12:00 09/12/24 05:48 300 ML Propofol 100 ml @ 3.672 mls/ hr Q24H IV 09/10/24 22:30 09/12/24 11:15 11.016 MLS/HR Insulin Human Regular HS SC 09/10/24 22:00 09/11/24 22:33 3 UNITS Dopamine HCl/ Dextrose 250 ml @ 9.24 mls/hr Q24H IV 09/11/24 11:15 09/12/24 11:14 9.24 MLS/HR Aspirin 81 mg DAILY PO 09/12/24 10:00 09/12/24 09:39 81 MG Clopidogrel Bisulfate 75 mg DAILY PO 09/12/24 10:00 09/12/24 09:39 75 MG Atorvastatin Calcium 80 mg HS PO 09/12/24 22:00 Diagnostic Test (Pha) 1 strip Q6HR 09/11/24 18:00 09/12/24 06:02 1 STRIP Dextrose 50 ml UD PRN IV 09/11/24 16:45 Examination: LUNGS:Normal, CVS:Normal, MSK:Normal laboratory and microbiology Test 09/12/24 10:50 Range/Units Serum Glucose Pending Microbiology Date/Time Source Procedure Growth Status 09/10/24 10:47 Catheter Tip Other Aerobic Culture - Preliminary Resulted 09/04/24 10:19 Blood Blood Culture - Final NO GROWTH AFTER 5 DAYS OF INCUBATION. 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 Recommendation: 1) Start PN/TPN per pharmacy 2) If GI is accessible, consider TF Pivot 1.5Cal @ 60ml/hr along with Pro-stat 1 pk TID. Start @ 10ml/hr, increase 10ml/hr Q4H until goal rate is reached. Advance TF rate slowly and gradually to prevent Refeeding syndrome. Water Flush 50ml Q4H if allowed. TF Provision --- TF at goal volume to provide 1440 ml total volume, 2160 kcal (+300 kcal via Pro-stat = 2460 kcal), 135 gm pro (+45 gm via ProStat = 180 gm), 1093 ml H20 (meets 100% est. kcal needs, 100% est. protein needs) 3) Monitor Potassium, Phosphate, Magnesium for Refeeding syndrome 4) Des 1 pk daily For DTI 5) Continue current plan of care Expected Outcomes/Goals: Blood glucose to improve Nutrient intake to meet at least 75% estimated needs FU 2-3 days Food and Nutrition Intake (Mod: <75% est energy req 7days Protein Calorie Malnutrition: Severe QUINCY GALLARDO MD September 12, 2024 11:34
[2024-09-12 11:36] LABS: Chloride 107 mmol/L (98-107); Potassium 3.8 mmol/L (3.5-5.1); Sodium 144 mmol/L (136-145)
[2024-09-12 11:37] LABS: Anion Gap 11 (5-15); Calcium 9.2 mg/dL (8.7-10.4); Carbon Dioxide 26 mmol/L (20-31)
[2024-09-12 11:39] LABS: Hemoglobin 10.7 g/dL (13.5-17.5); Lymphocytes # (auto) 3.1 10 ^3/uL (0.4-5.4); Neutrophils # (auto) 10.5 10 ^3/uL (1.6-8.6); Nucleated Red Blood Cells % 0.1 %; Red Blood Cells 3.62 10^6/uL (4.5-5.90)
[2024-09-12 11:41] LABS: Basophils # (auto) 0.2 10 ^3/uL (0-0.2); Basophils % (auto) 1.4 % (0.0-2.0); Eosinophils % (auto) 6.2 % (0.0-7.0); Hematocrit 31.8 % (41.0-53.0); Lymphocytes % (auto) 19.6 % (10.0-50.0); Mean Corpuscular Hemoglobin 29.6 pg (28.0-32.0); Mean Corpuscular Hgb Conc. 33.7 g/dL (32.0-36.0); Mean Corpuscular Volume 87.9 fL (80.0-100.0); Monocytes # (auto) 1.2 10 ^3/uL (0-1.3); Monocytes % (auto) 7.4 % (0.0-12.0); Neutrophils % (auto) 65.4 % (37.0-80.0); Platelet Count (auto) 661 10^3/uL (140-450); Red Cell Distribution Width 15.4 % (11.8-14.3); White Blood Cell 16.1 10^3/uL (4.4-10.8)
[2024-09-12 11:42] LABS: BUN/Creatinine Ratio 28.8 (10.0-20.0)
[2024-09-12 11:47] LABS: Blood Urea Nitrogen 60 mg/dL (9-23); Glucose 213 mg/dL (74-106)
--- NOTE | 2024-09-12 16:14 | DVHPN2 ---
Progress Note - Dictate Date Seen: September 12, 2024 Has the PT tested + for MRSA If YES, has PT been informed?: No Medical Necessity Reason Pt with a Central, PICC or Fol: Yes The following are medically ne: Central Line, Chavez Catheter Reason for chavez catheter: Strict I&O Subjective Patient is still intubated He failed CPAP trial s/p tracheostomy Patient is getting enteral tube feedings through the Dobbhoff tube into the small bowel at 60 mL/hour low intermittent suction is ongoing from the NG tube; NG tube output somewhat dark in color but less than 200 ml/shift Patient is having bowel movements; has flexiseal in place vital signs Vital Sign Date Time Temp Pulse Resp B/P (MAP) Pulse Ox O2 Delivery O2 Flow Rate FiO2 09/12/24 15:19 98 20 133/80 (97) 99 30 09/12/24 14:08 Mechanical Ventilator+ 09/12/24 12:00 98.3 98.3 Total Intake and Output 09/11/24 09/11/24 09/12/24 15:00 23:00 07:00 Intake Total 951.320 ml 1854.176 ml 2043.176 ml Output Total 1350 ml 2250 ml Balance 951.320 ml 504.176 ml -206.824 ml medications Current Medications Medications Dose Ordered Sig/Nikki Route Start Time Stop Time Status Last Admin Dose Admin Diagnostic Test (Pha) 1 strip ACHS 08/19/24 17:00 Cancel Norepinephrine Bitartrate 250 ml @ 3.75 mls/hr Q24H IV 08/19/24 17:15 Cancel Midazolam HCl 50 ml @ 1 mls/hr Q24H IV 08/19/24 17:15 09/09/24 19:10 1 MLS/HR Ipratropium [place] 0.5 mg Q6HR NEB 08/19/24 18:00 09/12/24 11:40 0.5 MG Albuterol 2.5 mg Q6HR NEB 08/19/24 18:00 09/12/24 11:40 2.5 MG Pantoprazole Sodium 40 mg BID IV 08/20/24 22:00 09/12/24 09:39 40 MG Acetaminophen 650 mg Q6HP PRN [place] 08/21/24 01:45 08/23/24 03:36 650 MG Epoetin Aquilino-epbx 10,000 unit TUTHSA@2100 [place] 08/26/24 21:00 09/10/24 21:13 10,000 UNIT Albumin Human 100 ml @ 100 mls/hr PRN PRN IV 08/26/24 06:45 08/27/24 07:45 100 MLS/HR Norepinephrine Bitartrate 32 mg/ Sodium Chloride 250 ml @ 0.469 mls/ hr Q24H IV 08/27/24 13:00 09/06/24 01:01 0.469 MLS/HR Fentanyl Citrate 250 ml @ 2.5 mls/hr Q24H IV 08/30/24 20:00 09/12/24 06:04 17.5 MLS/HR Heparin Sodium (Porcine) 5,000 units Q12HR SC 08/31/24 22:00 09/12/24 09:51 5,000 UNITS Sodium Chloride 10 ml QSHIFT@10,22 IV 08/31/24 22:00 09/12/24 09:40 10 ML Artificial Tears 2 drop Q4HR PRN EACHEYE 09/02/24 10:45 09/07/24 05:15 2 DROP Dextrose 50 ml UD PRN IV 09/03/24 21:00 Meropenem 50 ml @ 17 mls/hr Q12H IV 09/05/24 00:00 09/12/24 12:56 17 MLS/HR Hydralazine HCl 50 mg Q8HR PRN PO 09/05/24 09:15 Hydralazine HCl 20 mg Q6HP PRN IV 09/08/24 11:45 09/09/24 09:57 20 MG Enteral Nutritional Formula 1,000 ml 60ML/HR GT 09/08/24 22:15 09/12/24 03:52 1,000 ML Insulin Human Regular AC SC 09/09/24 07:00 09/12/24 11:29 6 UNITS Diagnostic Test (Pha) 1 strip ACHS 09/09/24 07:00 09/12/24 11:31 1 STRIP Sodium Chloride 1,000 ml @ 75 mls/hr [id number] IV 09/10/24 08:45 09/12/24 11:16 75 MLS/HR Purified Water 300 ml Q6HR GT 09/10/24 12:00 09/12/24 12:56 300 ML Propofol 100 ml @ 3.672 mls/ hr Q24H IV 09/10/24 22:30 09/12/24 11:15 11.016 MLS/HR Insulin Human Regular HS SC 09/10/24 22:00 09/11/24 22:33 3 UNITS Dopamine HCl/ Dextrose 250 ml @ 9.24 mls/hr Q24H IV 09/11/24 11:15 09/12/24 11:14 9.24 MLS/HR Aspirin 81 mg DAILY PO 09/12/24 10:00 09/12/24 09:39 81 MG Clopidogrel Bisulfate 75 mg DAILY PO 09/12/24 10:00 09/12/24 09:39 75 MG Atorvastatin Calcium 80 mg HS PO 09/12/24 22:00 Diagnostic Test (Pha) 1 strip Q6HR 09/11/24 18:00 09/12/24 11:38 1 STRIP Dextrose 50 ml UD PRN IV 09/11/24 16:45 objective General: Mechanically ventilated, sedated HEENT: Head is normocephalic and atraumatic. Pupils are equal, round, and reactive to light Neck: Supple with no cervical lymphadenopathy. Heart: Regular rate without murmur, rub, or gallop. Lungs: Bilateral crackles, most prominent on bases Abdomen: No external sign of injury. Bowel sounds present Abdomen is soft, nontender. Extremities: faint peripheral pulses. There is no clubbing, no cyanosis, and no edema. Skin: No rash. laboratory and microbiology Laboratory Tests 09/12/24 10:50 Test 09/12/24 10:50 Range/Units Serum Glucose 213 #H 74-106 mg/dL Problems(with codes): (1) CVA (cerebral vascular accident) (2) Gastroparesis (3) Leukocytosis (4) Anemia (5) Diabetes type 2, uncontrolled Prognosis PLAN Clamp NGT and then D/C if not required Continue dobhoff feedings Supportive care IV Reglan ? D/C Flexiseal ; however pt has sacral decubitis Surgical f/u for debridement Dietary Evaluation Review Recommendations by RD: Protein Supplementation, PPN/TPN Comments: Pt is at high risk of malnutrition due to prolonged vomiting leading to inadequate nutrient intake and hypermetabolic state secondary to acute inflammation. Recommendation: 1) Start PN/TPN per pharmacy 2) If GI is accessible, consider TF Pivot 1.5Cal @ 60ml/hr along with Pro-stat 1 pk TID. Start @ 10ml/hr, increase 10ml/hr Q4H until goal rate is reached. Advance TF rate slowly and gradually to prevent Refeeding syndrome. Water Flush 50ml Q4H if allowed. TF Provision --- TF at goal volume to provide 1440 ml total volume, 2160 kcal (+300 kcal via Pro-stat = 2460 kcal), 135 gm pro (+45 gm via ProStat = 180 gm), 1093 ml H20 (meets 100% est. kcal needs, 100% est. protein needs) 3) Monitor Potassium, Phosphate, Magnesium for Refeeding syndrome 4) Des 1 pk daily For DTI 5) Continue current plan of care Expected Outcomes/Goals: Blood glucose to improve Nutrient intake to meet at least 75% estimated needs FU 2-3 days Food and Nutrition Intake (Mod: <75% est energy req 7days Protein Calorie Malnutrition: Severe Plan discussed with: Other (ICU Nurse) ALDAIR YOUSSEF MD September 12, 2024 16:14
--- NOTE | 2024-09-12 20:46 | DVHPN2 ---
Progress Note - Dictate Date Seen: September 12, 2024 Has the PT tested + for MRSA If YES, has PT been informed?: No Medical Necessity Reason Pt with a Central, PICC or Fol: Yes The following are medically ne: Central Line, Chavez Catheter Reason for chavez catheter: Strict I&O Subjective Mr. Moore is a 44 years old right-handed gentleman with a history of diabetes, kidney failure once on hemodialysis, obesity, the patient was brought to the hospital on 08/19/2024 by the family for altered mental status. I have seen and examined the patient, I have discussed with his nurse, he was more responsive to verbal stimuli and physically stronger as well, he moves the left arm than leg only, Blood culture, 08/31/2024: Staphylococcus epidermidis, Staphylococcus hominis Stool occult blood, 09/07/2024: Positive UDS, 08/19/2024: Negative Plasma alcohol, 08/19/2024: Normal Urinalysis, 08/19/2024: WBC: 16, urine leukocyte esterase: Trace ABG 08/19/2024: Respiratory c acidosis WBC/HB/PLT/MCV, 08/19/2024: 37.8/14.8/159/86.1 08/25/2024: 34.8/7.7/180/89.5, 09/11/2024:17.2/10/635/86.8 PT/INR/PTT, 09/10/2024: 12.8/1.23/24.9 Na, 08/19/24: 114, 08/20/24: 123, 08/26/24: 134 BUN/CR, 08/19/2024: 112/8.94, 09/09/2024: 82/2.79, 09/11/2024: 81/2.42 HCO3, 08/19/2024: >40, 17, 08/20/2024: 37 Anion gap, 08/19/2024: 22.9999 Beta hydroxybutyric acid, 08/19/2024: 0.498 Lactic acid, 08/19/2024: 5.7, 4.6 HGB A1c, 08/19/2024: 11.7 Liver function tests, 09/07/2024: Unremarkable TG/HDL/LDL/HDL, 09/11/2024: 351/200/134/21 Carotid Doppler, 09/11/2024: No evidence of hemodynamically significant stenosis in the carotid arteries CT head, 09/11/2024: 1. Findings consistent with acute or subacute left MCA territory infarct. 2. No evidence of acute intracranial hemorrhage. 3. Partial opacification of the mastoid air cells bilaterally, likely effusions. Correlate clinically to exclude mastoiditis. CT head, 09/11/2024: Acute infarction within the right cerebellar hemisphere measuring 3.2 x 0.7 cm. Less pronounced diffusion restriction signal within the left frontoparietal lobe vital signs Vital Sign Date Time Temp Pulse Resp B/P (MAP) Pulse Ox O2 Delivery O2 Flow Rate FiO2 09/12/24 20:10 113 28 139/84 (102) 100 30 09/12/24 19:08 Mechanical Ventilator+ 09/12/24 16:00 98.4 98.4 Total Intake and Output 09/11/24 09/11/24 09/12/24 15:00 23:00 07:00 Intake Total 951.320 ml 1854.176 ml 2043.176 ml Output Total 1350 ml 2250 ml Balance 951.320 ml 504.176 ml -206.824 ml medications Current Medications Medications Dose Ordered Sig/Nikki Route Start Time Stop Time Status Last Admin Dose Admin Diagnostic Test (Pha) 1 strip ACHS 08/19/24 17:00 Cancel Norepinephrine Bitartrate 250 ml @ 3.75 mls/hr Q24H IV 08/19/24 17:15 Cancel Midazolam HCl 50 ml @ 1 mls/hr Q24H IV 08/19/24 17:15 09/09/24 19:10 1 MLS/HR Ipratropium [place] 0.5 mg Q6HR NEB 08/19/24 18:00 09/12/24 19:08 0.5 MG Albuterol 2.5 mg Q6HR NEB 08/19/24 18:00 09/12/24 19:08 2.5 MG Pantoprazole Sodium 40 mg BID IV 08/20/24 22:00 09/12/24 09:39 40 MG Acetaminophen 650 mg Q6HP PRN [place] 08/21/24 01:45 08/23/24 03:36 650 MG Epoetin Aquilino-epbx 10,000 unit TUTHSA@2100 NM 08/26/24 21:00 09/10/24 21:13 10,000 UNIT Albumin Human 100 ml @ 100 mls/hr PRN PRN IV 08/26/24 06:45 08/27/24 07:45 100 MLS/HR Norepinephrine Bitartrate 32 mg/ Sodium Chloride 250 ml @ 0.469 mls/ hr Q24H IV 08/27/24 13:00 09/06/24 01:01 0.469 MLS/HR Fentanyl Citrate 250 ml @ 2.5 mls/hr Q24H IV 08/30/24 20:00 09/12/24 06:04 17.5 MLS/HR Heparin Sodium (Porcine) 5,000 units Q12HR SC 08/31/24 22:00 09/12/24 09:51 5,000 UNITS Sodium Chloride 10 ml QSHIFT@10, IV 08/31/24 22:00 09/12/24 09:40 10 ML Artificial Tears 2 drop Q4HR PRN EACHEYE 09/02/24 10:45 09/07/24 05:15 2 DROP Dextrose 50 ml UD PRN IV 09/03/24 21:00 Meropenem 50 ml @ 17 mls/hr Q12H IV 09/05/24 00:00 09/12/24 12:56 17 MLS/HR Hydralazine HCl 50 mg Q8HR PRN PO 09/05/24 09:15 Hydralazine HCl 20 mg Q6HP PRN IV 09/08/24 11:45 09/09/24 09:57 20 MG Enteral Nutritional Formula 1,000 ml 60ML/HR GT 09/08/24 22:15 09/12/24 03:52 1,000 ML Insulin Human Regular AC SC 09/09/24 07:00 09/12/24 17:20 6 UNITS Diagnostic Test (Pha) 1 strip ACHS 09/09/24 07:00 09/12/24 17:20 1 STRIP Sodium Chloride 1,000 ml @ 75 mls/hr [id number] IV 09/10/24 08:45 09/12/24 11:16 75 MLS/HR Purified Water 300 ml Q6HR GT 09/10/24 12:00 09/12/24 17:24 300 ML Propofol 100 ml @ 3.672 mls/ hr Q24H IV 09/10/24 22:30 09/12/24 18:27 11.016 MLS/HR Insulin Human Regular HS SC 09/10/24 22:00 09/11/24 22:33 3 UNITS Dopamine HCl/ Dextrose 250 ml @ 9.24 mls/hr Q24H IV 09/11/24 11:15 09/12/24 11:14 9.24 MLS/HR Aspirin 81 mg DAILY PO 09/12/24 10:00 09/12/24 09:39 81 MG Clopidogrel Bisulfate 75 mg DAILY PO 09/12/24 10:00 09/12/24 09:39 75 MG Atorvastatin Calcium 80 mg HS PO 09/12/24 22:00 Diagnostic Test (Pha) 1 strip Q6HR 09/11/24 18:00 09/12/24 17:24 1 STRIP Dextrose 50 ml UD PRN IV 09/11/24 16:45 objective The patient is well-nourished and well-developed with no distress. MENTAL STATUS: Subjective CRANIAL NERVES: Pupils are round and reactive, with a right side slightly bigger when the pupils are dilated. There are spontaneous blinking and possible conjugated eye movement. No signs of facial weakness. There are gagging or coughing reflexes SENSATION: Responses to pain stimuli. MOTOR: Normal tone in the upper and lower extremity. Normal muscle bulk. No fasciculations. He moves the left arm and the leg REFLEXES: Deep tendon reflexes are symmetrical. No pathological reflexes. CEREBELLAR/COORDINATION: Deferred GAIT/STATION: deferred laboratory and microbiology Laboratory Tests 09/12/24 10:50 Test 09/12/24 10:50 Range/Units Serum Glucose 213 #H 74-106 mg/dL Problem List Left hemisphere stroke Right cerebellum hemispheres stroke Altered mental status Metabolic encephalopathy Hypoxic encephalopathy Toxic encephalopathy Uncontrolled diabetes Acidosis Sepsis, septic shock Urinary tract infection Pneumonia Kidney failure Respiratory failure Intermittently anisocoria, uncertain clinical significance Assessment/Plan Monitoring Supportive treatment EEG ESTHER ICU care Stabilize vitals/pressor drip Respiratory support/vent management Oxygen Antibiotics Lipitor 80 mg daily Plavix 75 mg daily Aspirin 81 mg daily DVT prophylaxis/heparin subQ GI prophylaxis/Protonix More recommendation per clinical course This medical document was created using an electronic medical record system with [employer] dictation system. Although this document has been carefully reviewed, there may still be some phonetic and typographical errors. These areas are purely typographical due to imperfections of the software programs, and do not reflect any compromise in the patient's medical care Prognosis poor Dietary Evaluation Review Recommendations by RD: Protein Supplementation, PPN/TPN Comments: Pt is at high risk of malnutrition due to prolonged vomiting leading to inadequate nutrient intake and hypermetabolic state secondary to acute inflammation. Recommendation: 1) Start PN/TPN per pharmacy 2) If GI is accessible, consider TF Pivot 1.5Cal @ 60ml/hr along with Pro-stat 1 pk TID. Start @ 10ml/hr, increase 10ml/hr Q4H until goal rate is reached. Advance TF rate slowly and gradually to prevent Refeeding syndrome. Water Flush 50ml Q4H if allowed. TF Provision --- TF at goal volume to provide 1440 ml total volume, 2160 kcal (+300 kcal via Pro-stat = 2460 kcal), 135 gm pro (+45 gm via ProStat = 180 gm), 1093 ml H20 (meets 100% est. kcal needs, 100% est. protein needs) 3) Monitor Potassium, Phosphate, Magnesium for Refeeding syndrome 4) Des 1 pk daily For DTI 5) Continue current plan of care Expected Outcomes/Goals: Blood glucose to improve Nutrient intake to meet at least 75% estimated needs FU 2-3 days Food and Nutrition Intake (Mod: <75% est energy req 7days Protein Calorie Malnutrition: Severe Plan discussed with: Other CHRISTOPHE CHÁVEZ MD September 12, 2024 20:46
--- NOTE | 2024-09-12 23:18 | DVHPN2 ---
Progress Note - Dictate Date Seen: September 12, 2024 Has the PT tested + for MRSA If YES, has PT been informed?: No Medical Necessity Reason Pt with a Central, PICC or Fol: Yes The following are medically ne: Central Line, Chavez Catheter Reason for chavez catheter: Strict I&O Subjective Patient seen and examined at bedside. Sedated, intubated on mechanical ventilator. Overnight events reviewed. vital signs Vital Sign Date Time Temp Pulse Resp B/P (MAP) Pulse Ox O2 Delivery O2 Flow Rate FiO2 09/12/24 22:15 101 18 136/83 (100) 98 30 09/12/24 19:08 Mechanical Ventilator+ 09/12/24 16:00 98.4 98.4 Total Intake and Output 09/11/24 09/11/24 09/12/24 15:00 23:00 07:00 Intake Total 951.320 ml 1854.176 ml 2043.176 ml Output Total 1350 ml 2250 ml Balance 951.320 ml 504.176 ml -206.824 ml medications Current Medications Medications Dose Ordered Sig/Nikki Route Start Time Stop Time Status Last Admin Dose Admin Diagnostic Test (Pha) 1 strip ACHS 08/19/24 17:00 Cancel Norepinephrine Bitartrate 250 ml @ 3.75 mls/hr Q24H IV 08/19/24 17:15 Cancel Midazolam HCl 50 ml @ 1 mls/hr Q24H IV 08/19/24 17:15 09/09/24 19:10 1 MLS/HR Ipratropium [place] 0.5 mg Q6HR NEB 08/19/24 18:00 09/12/24 19:08 0.5 MG Albuterol 2.5 mg Q6HR NEB 08/19/24 18:00 09/12/24 19:08 2.5 MG Pantoprazole Sodium 40 mg BID IV 08/20/24 22:00 09/12/24 09:39 40 MG Acetaminophen 650 mg Q6HP PRN [place] 08/21/24 01:45 08/23/24 03:36 650 MG Epoetin Aquilino-epbx 10,000 unit TUTHSA@2100 SC 08/26/24 21:00 09/10/24 21:13 10,000 UNIT Albumin Human 100 ml @ 100 mls/hr PRN PRN IV 08/26/24 06:45 08/27/24 07:45 100 MLS/HR Norepinephrine Bitartrate 32 mg/ Sodium Chloride 250 ml @ 0.469 mls/ hr Q24H IV 08/27/24 13:00 09/06/24 01:01 0.469 MLS/HR Fentanyl Citrate 250 ml @ 2.5 mls/hr Q24H IV 08/30/24 20:00 09/12/24 06:04 17.5 MLS/HR Heparin Sodium (Porcine) 5,000 units Q12HR SC 08/31/24 22:00 09/12/24 09:51 5,000 UNITS Sodium Chloride 10 ml QSHIFT@10,22 IV 08/31/24 22:00 09/12/24 09:40 10 ML Artificial Tears 2 drop Q4HR PRN EACHEYE 09/02/24 10:45 09/07/24 05:15 2 DROP Dextrose 50 ml UD PRN IV 09/03/24 21:00 Meropenem 50 ml @ 17 mls/hr Q12H IV 09/05/24 00:00 09/12/24 12:56 17 MLS/HR Hydralazine HCl 50 mg Q8HR PRN PO 09/05/24 09:15 Hydralazine HCl 20 mg Q6HP PRN IV 09/08/24 11:45 09/09/24 09:57 20 MG Enteral Nutritional Formula 1,000 ml 60ML/HR GT 09/08/24 22:15 09/12/24 03:52 1,000 ML Insulin Human Regular AC SC 09/09/24 07:00 09/12/24 17:20 6 UNITS Diagnostic Test (Pha) 1 strip ACHS 09/09/24 07:00 09/12/24 17:20 1 STRIP Sodium Chloride 1,000 ml @ 75 mls/hr [id number] IV 09/10/24 08:45 09/12/24 11:16 75 MLS/HR Purified Water 300 ml Q6HR GT 09/10/24 12:00 09/12/24 17:24 300 ML Propofol 100 ml @ 3.672 mls/ hr Q24H IV 09/10/24 22:30 09/12/24 18:27 11.016 MLS/HR Insulin Human Regular HS SC 09/10/24 22:00 09/11/24 22:33 3 UNITS Dopamine HCl/ Dextrose 250 ml @ 9.24 mls/hr Q24H IV 09/11/24 11:15 09/12/24 11:14 9.24 MLS/HR Aspirin 81 mg DAILY PO 09/12/24 10:00 09/12/24 09:39 81 MG Clopidogrel Bisulfate 75 mg DAILY PO 09/12/24 10:00 09/12/24 09:39 75 MG Atorvastatin Calcium 80 mg HS PO 09/12/24 22:00 Diagnostic Test (Pha) 1 strip Q6HR 09/11/24 18:00 09/12/24 17:24 1 STRIP Dextrose 50 ml UD PRN IV 09/11/24 16:45 objective Gen.: Patient lying in bed in medical ICU. Sedated, intubated on mechanical ventilator. Head: Normocephalic, atraumatic. Eyes: PERRLA. Ears: Normal external anatomy. Throat: Endotracheal tube and orogastric tube in place. Neck: Supple, trachea midline. Chest: Transmitted breath sounds bilaterally. Decreased air entry bilaterally. No wheezing. Bibasilar crackles. Cardiovascular: Positive S1, positive S2. Regular rate and rhythm. Abdomen: Positive bowel sounds in all 4 quadrants. Soft, nontender, nondistended. : Chavez in place. Normal external genitalia. Rectal: Deferred. Skin: Warm, dry. Intact. Extremities: 2+ radial pulses bilaterally. No lower extremity edema. Neuro: Sedated laboratory and microbiology Laboratory Tests 09/12/24 10:50 Test 09/12/24 10:50 Range/Units Serum Glucose 213 #H 74-106 mg/dL Assessment/Plan Impression: Acute hypoxic respiratory failure On mechanical ventilator Gastrointestinal hemorrhage, upper Aspiration pneumonia MAGDALENA mucous plug Obesity BMI 35.9 Events: Remains on vent support Vent settings: AC mode; RR 20, VT 550, PEEP 5, FiO2 30% Taper RR down to 16 S/p trach Trach care Sedated on Propofol drip, Fentanyl drip On Dopamine drip 2 mcg/min Continue antibiotics Continue antifungal CXR reviewed, notable for diffuse interstitial opacities. Devices in place. ABG notable for alkalemia NGT in place Monitor hemoglobin Monitor renal function - BUN and creatinine elevated Monitor electrolytes. Supplement as necessary. Nephrology recommendations appreciated. TPN for nutritional support Accu-Cheks, ISS S/p vascular surgery for carotid repair. S/p bronchoscopy w/ BAL on 08/23/24 -cleared mucous plugging from L1-L10 and R1- R10 See separate procedure note for details. Labs and imaging reviewed. Rest of plan as noted below Plan: s/p intubation on mechanical ventilator. Vent settings: AC mode - RR 20, VT 550, PEEP 5, FiO2 30% Titrate FIO2 to keep O2 saturation above 90%. VAP bundle. Daily ABG and CXR while intubated Sedate for ventilator synchrony Patient underwent therapeutic bronchoscopy on 08/19/24 with clearing of mucous plugging. Aspirated coffee ground material removed from within the bilateral lungs. See separate procedure note for details. Continue bronchodilators. Continue antibiotics. Pressors as necessary for hemodynamic support Titrate to keep mean arterial pressure greater than 65 mmHg. Monitor hemoglobin GI recs appreciated HD per Nephrology Monitor renal function Monitor electrolytes. Supplement as necessary. Monitor ins and outs. Accu-Cheks, ISS GI prophylaxis - Protonix. DVT prophylaxis - Lovenox. Prognosis: Poor given patient's multiple co-morbidities. Condition: Critical Rest of plan per hospitalist and other consultants. A total of 35 minutes of critical care time was spent reviewing the patient record, examining the patient, making a diagnostic and therapeutic plan, discussing this plan with the medical personnel, following up on diagnostic studies and following the patient for clinical stability excluding any and all procedures. At least 50% of this time was spent in direct, [id number] contact. Thank you, DEON Morrison, for allowing me to participate in this patient's care. Further recommendations will depend on the patient's clinical course. Please do not hesitate to contact me if you have any questions or concerns. This medical document was created using an electronic medical record system with [employer] dictation system. Although these documentations are being carefully reviewed, there may still be some phonetic and typographical changes. The errors are purely typographical, due to imperfection on the software program, and do not reflect any compromise in the patient's medical care. Dietary Evaluation Review Recommendations by RD: Protein Supplementation, PPN/TPN Comments: Pt is at high risk of malnutrition due to prolonged vomiting leading to inadequate nutrient intake and hypermetabolic state secondary to acute inflammation. Recommendation: 1) Start PN/TPN per pharmacy 2) If GI is accessible, consider TF Pivot 1.5Cal @ 60ml/hr along with Pro-stat 1 pk TID. Start @ 10ml/hr, increase 10ml/hr Q4H until goal rate is reached. Advance TF rate slowly and gradually to prevent Refeeding syndrome. Water Flush 50ml Q4H if allowed. TF Provision --- TF at goal volume to provide 1440 ml total volume, 2160 kcal (+300 kcal via Pro-stat = 2460 kcal), 135 gm pro (+45 gm via ProStat = 180 gm), 1093 ml H20 (meets 100% est. kcal needs, 100% est. protein needs) 3) Monitor Potassium, Phosphate, Magnesium for Refeeding syndrome 4) Des 1 pk daily For DTI 5) Continue current plan of care Expected Outcomes/Goals: Blood glucose to improve Nutrient intake to meet at least 75% estimated needs FU 2-3 days Food and Nutrition Intake (Mod: <75% est energy req 7days Protein Calorie Malnutrition: Severe Plan discussed with: Other (MARYURI Rizo) Critical Care Time(min): 35 LINO CARRION MD September 12, 2024 23:18
[2024-09-12] MEDS: ATORVASTATIN 20 MG TAB PO SCH (23:57)
[2024-09-13] VITALS (102 sets, daily range): BP systolic 105–158; BP diastolic 61–97; PULSE 82–106; RESP 13–21; TEMP 98.3–100; O2SAT 89–100
--- NOTE | 2024-09-13 00:26 | DVHEEG2 ---
Neurology EEG Procedural Note Procedural Note EXAM DATE: 09/12/2024 REFERRING DOCTOR: Dr. Chávez TECHNIQUE: Eighteen channels of EEG, 2 channels of EOG, and 1 channel of EKG were recorded using the [employer] 10/20 system. CLINICAL DATA: The patient was referred for an EEG evaluation for the evidence of seizure disorder. MEDICATIONS: The the chart BACKGROUND ACTIVITY: The background appeared to be fairly regulated 7-8 Hz rhythmic waveforms, symmetrically distributed over both posterior quadrants and was reactive to external stimuli. ACTIVATION: Hyperventilation: Not done Photic Stimulation: Not done Sleep: Not seen IMPRESSION: This is a borderline normal EEG. No focal, lateralized, or epileptiform features are noted. If clinically indicated to rule out a seizure disorder, recommend repeat EEG with sleep deprivation. The EKG channel showed a regular heart rate of 84 per minute. [place] [address] CHRISTOPHE CHÁVEZ MD September 13, 2024 00:26
[2024-09-13] MEDS: fentaNYL Drip 2500mCg/250mlNS 250 ML IV SCH (03:17)
[2024-09-13 04:09] LABS: Basophils # (auto) 0.3 10 ^3/uL (0-0.2); Basophils % (auto) 1.4 % (0.0-2.0); Eosinophils # (auto) 0.9 10 ^3/uL (0-0.8); Eosinophils % (auto) 4.9 % (0.0-7.0); Hematocrit 31.1 % (41.0-53.0); Hemoglobin 10.5 g/dL (13.5-17.5); Lymphocytes # (auto) 3.2 10 ^3/uL (0.4-5.4); Lymphocytes % (auto) 16.5 % (10.0-50.0); Mean Corpuscular Hemoglobin 29.7 pg (28.0-32.0); Mean Corpuscular Hgb Conc. 33.8 g/dL (32.0-36.0); Mean Corpuscular Volume 87.9 fL (80.0-100.0); Monocytes # (auto) 1.3 10 ^3/uL (0-1.3); Monocytes % (auto) 6.6 % (0.0-12.0); Neutrophils # (auto) 13.6 10 ^3/uL (1.6-8.6); Neutrophils % (auto) 70.6 % (37.0-80.0); Platelet Count (auto) 620 10^3/uL (140-450); Red Blood Cells 3.54 10^6/uL (4.5-5.90); Red Cell Distribution Width 15.5 % (11.8-14.3); White Blood Cell 19.3 10^3/uL (4.4-10.8)
[2024-09-13 04:33] LABS: Alanine Aminotransferase 19 U/L (7-40); Albumin 3.5 g/dL (3.2-4.8); Anion Gap 10 (5-15); Aspartate Aminotransferase 21 U/L (13-40); BUN/Creatinine Ratio 30.4 (10.0-20.0); Calcium 9.2 mg/dL (8.7-10.4); Carbon Dioxide 26 mmol/L (20-31); Magnesium 1.9 mg/dL (1.6-2.6); Potassium 3.7 mmol/L (3.5-5.1); Sodium 144 mmol/L (136-145); Total Protein 7.5 g/dL (5.7-8.2)
[2024-09-13 04:41] LABS: Alkaline Phosphatase 234 U/L (46-116); Bilirubin, Total 0.3 mg/dL (0.2-1.0); Blood Urea Nitrogen 59 mg/dL (9-23); Chloride 108 mmol/L (98-107); Glucose 233 mg/dL (74-106); Phosphorus 5.3 mg/dL (2.4-5.1)
--- NOTE | 2024-09-13 06:52 | DVH ---
INDICATION: TRACHEOSTOMY TO VENTILATOR TECHNIQUE: Single frontal view of the chest was obtained COMPARISON: XY CHEST PORTABLE on DOS: 09/12/24, XY CHEST PORTABLE on DOS: 09/11/24, XY CHEST XRAY 1 VIEW on DOS: 09/10/24, XY CHEST PORTABLE on DOS: 09/10/24, XY CHEST PORTABLE on DOS: 09/09/24, XY CHEST PORTABL E on DOS: 09/12/24 FINDINGS: Lines and Tubes: Unchanged. Lungs: Stable appearing moderate diffuse increased prominence of the interstitial lung markings witho ut evidence of focal consolidation. Pleura: No effusion. No pneumothorax. Cardiomediastinal contours: Unremarkable Bones: Unremarkable IMPRESSION: 1. Stable diffuse bowel interstitial prominence without evidence of focal consolidation. 2. Lines and tubes unchanged.
--- NOTE | 2024-09-13 08:49 | DVHPN2 ---
Progress Note Date Seen: September 13, 2024 Has the PT tested + for MRSA If YES, has PT been informed?: No Medical Necessity Reason Pt with a Central, PICC or Fol: Yes The following are medically ne: Central Line, Chavez Catheter Reason for chavez catheter: Strict I&O Subjective Review of Systems: RESPIRATORY:Abnormal Other Systems: Patient seen and examined by myself today in follow-up, patient remained intubated on ventilator Objective vital signs Vital Sign Date Time Temp Pulse Resp B/P (MAP) Pulse Ox O2 Delivery O2 Flow Rate FiO2 09/13/24 08:15 96 18 131/84 (100) 99 09/13/24 08:00 Mechanical Ventilator+ 30 30 09/13/24 08:00 98.3 98.3 Total Intake and Output 09/12/24 09/12/24 09/13/24 15:00 23:00 07:00 Intake Total 1005.136 ml 1346.640 ml 1665.700 ml Output Total 2150 ml 1905 ml Balance 1005.136 ml -803.360 ml -239.300 ml medications Current Medications Medications Dose Ordered Sig/Nikki Route Start Time Stop Time Status Last Admin Dose Admin Diagnostic Test (Pha) 1 strip ACHS 08/19/24 17:00 Cancel Norepinephrine Bitartrate 250 ml @ 3.75 mls/hr Q24H IV 08/19/24 17:15 Cancel Midazolam HCl 50 ml @ 1 mls/hr Q24H IV 08/19/24 17:15 09/09/24 19:10 1 MLS/HR Ipratropium [place] 0.5 mg Q6HR NEB 08/19/24 18:00 09/13/24 06:16 0.5 MG Albuterol 2.5 mg Q6HR NEB 08/19/24 18:00 09/13/24 06:16 2.5 MG Pantoprazole Sodium 40 mg BID IV 08/20/24 22:00 09/12/24 23:57 40 MG Acetaminophen 650 mg Q6HP PRN [place] 08/21/24 01:45 08/23/24 03:36 650 MG Epoetin [place]il[place]-epbx 10,000 unit TUTHSA@2100 SC 08/26/24 21:00 09/13/24 00:02 10,000 UNIT Albumin Human 100 ml @ 100 mls/hr PRN PRN IV 08/26/24 06:45 08/27/24 07:45 100 MLS/HR Norepinephrine Bitartrate 32 mg/ Sodium Chloride 250 ml @ 0.469 mls/ hr Q24H IV 08/27/24 13:00 09/06/24 01:01 0.469 MLS/HR Heparin Sodium (Porcine) 5,000 units Q12HR SC 08/31/24 22:00 09/13/24 00:02 5,000 UNITS Sodium Chloride 10 ml QSHIFT@10,22 IV 08/31/24 22:00 09/12/24 23:57 10 ML Artificial Tears 2 drop Q4HR PRN EACHEYE 09/02/24 10:45 09/12/24 23:56 2 DROP Dextrose 50 ml UD PRN IV 09/03/24 21:00 Meropenem 50 ml @ 17 mls/hr Q12H IV 09/05/24 00:00 09/13/24 00:03 17 MLS/HR Hydralazine HCl 50 mg Q8HR PRN PO 09/05/24 09:15 Hydralazine HCl 20 mg Q6HP PRN IV 09/08/24 11:45 09/09/24 09:57 20 MG Enteral Nutritional Formula 1,000 ml 60ML/HR GT 09/08/24 22:15 09/12/24 03:52 1,000 ML Insulin Human Regular AC SC 09/09/24 07:00 09/13/24 06:18 6 UNITS Diagnostic Test (Pha) 1 strip ACHS 09/09/24 07:00 09/13/24 06:17 1 STRIP Sodium Chloride 1,000 ml @ 75 mls/hr [id number] IV 09/10/24 08:45 09/13/24 01:05 75 MLS/HR Purified Water 300 ml Q6HR GT 09/10/24 12:00 09/13/24 05:06 300 ML Propofol 100 ml @ 3.672 mls/ hr Q24H IV 09/10/24 22:30 09/13/24 07:00 11.016 MLS/HR Insulin Human Regular HS SC 09/10/24 22:00 09/13/24 00:34 4 UNITS Dopamine HCl/ Dextrose 250 ml @ 9.24 mls/hr Q24H IV 09/11/24 11:15 09/12/24 11:14 9.24 MLS/HR Aspirin 81 mg DAILY PO 09/12/24 10:00 09/12/24 09:39 81 MG Clopidogrel Bisulfate 75 mg DAILY PO 09/12/24 10:00 09/12/24 09:39 75 MG Atorvastatin Calcium 80 mg HS PO 09/12/24 22:00 09/12/24 23:57 80 MG Diagnostic Test (Pha) 1 strip Q6HR 09/11/24 18:00 09/13/24 06:17 1 STRIP Dextrose 50 ml UD PRN IV 09/11/24 16:45 Fentanyl Citrate 250 ml @ 2.5 mls/hr Q24H IV 09/13/24 03:15 09/13/24 03:17 12.5 MLS/HR Examination: LUNGS:Normal, CVS:Normal, MSK:Abnormal laboratory and microbiology Laboratory Tests 09/13/24 03:42 Test 09/13/24 03:42 Range/Units Serum Glucose 233 H 74-106 mg/dL Microbiology Date/Time Source Procedure Growth Status 09/10/24 10:47 Catheter Tip Other Aerobic Culture - Preliminary Resulted 09/04/24 10:19 Blood Blood Culture - Final NO GROWTH AFTER 5 DAYS OF INCUBATION. 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 Recommendation: 1) Start PN/TPN per pharmacy 2) If GI is accessible, consider TF Pivot 1.5Cal @ 60ml/hr along with Pro-stat 1 pk TID. Start @ 10ml/hr, increase 10ml/hr Q4H until goal rate is reached. Advance TF rate slowly and gradually to prevent Refeeding syndrome. Water Flush 50ml Q4H if allowed. TF Provision --- TF at goal volume to provide 1440 ml total volume, 2160 kcal (+300 kcal via Pro-stat = 2460 kcal), 135 gm pro (+45 gm via ProStat = 180 gm), 1093 ml H20 (meets 100% est. kcal needs, 100% est. protein needs) 3) Monitor Potassium, Phosphate, Magnesium for Refeeding syndrome 4) Des 1 pk daily For DTI 5) Continue current plan of care Expected Outcomes/Goals: Blood glucose to improve Nutrient intake to meet at least 75% estimated needs FU 2-3 days Food and Nutrition Intake (Mod: <75% est energy req 7days Protein Calorie Malnutrition: Severe QUINCY GALLARDO MD September 13, 2024 08:49
--- NOTE | 2024-09-13 10:22 | DVHPN2 ---
Subjective Patient was a 44-year-old male with a past medical history of diabetes presented to the ER with a chief complaint of intractable vomitings and altered level of consciousness. According to the sister patient has been vomiting persistently for 7-10 days before coming to the hospital. She reports that he took a shot of Ozempic before the vomiting started. While in the ER patient was altered and was not able to protect his airways following which it was decided to intubate him and put him on mechanical ventilation. Before intubation when he was laid flat, had vomiting coffee-ground and aspirated. After intubation patient underwent bronchoscopy with removal of mucus plugs from left upper and left lower lung. Past medical history: Diabetes Past surgical history: Left foot surgery Social history: Smokes 1 pack of cigarettes per day, denied alcohol or any other drug use Home medications: ?? Patient seen and examined on the bedside Sedated and on mechanical ventilation Patient is on trach tube and ventilation through the tube. MRI of head demonstrated Acute infarction within the right cerebellar hemisphere measuring 3.2 x 0.7 cm. Left frontoparietal increased T2 signal with mild diffusion restriction signal. This could represent subacute infarct or underlying mass/lesion. 09/12- CBC with significant drop in all lines, questionable dilutional drop. We will redraw. Patient has Friedman good output, rectal tube with blood green stained bowel full, patient has a sacral wound and is high risk infectious. Patient remains on dopamine at 1 for renal protective per nephrology to manage. Patient was getting NG feeds and OG tube in place for? Possible worsening obstruction. Patient did come with concern for GI bleed and was intubated for airway protection. Patient did also require bronch to remove plugs. Stay had complication of carotid dialysis which was repaired. When trying to sedation vacation and CPAP patient had poor response and follow up through CT head showed large strokes x2. We will wait for Neurology clearance before trying CPAP trial. Today we will repeat CBC and BMP as there was some hyperkalemia and Lasix was given. We will try sedation vacation to evaluate neuro function but currently no cough or gag reflex. Patient was on propofol and fentanyl. We will try sedation vacation trial. No CPAP trial today. 09/13-following some commands while on sedation, no movements on the right, could likely be prophylaxis from the stroke. Otherwise he was tracking, cough and gag present. We will do sedation vacation today but no CPAP trial as per primary team indications. We will wait for Neurology to approve a CPAP trial today and if given we will probably try tomorrow. Okay to give meds through Dobbhoff, reviewed with GI to remove OG if not needed, sedation vacation trial today. Reviewed: Care Plan, H&P, Labs, Medications, Previous Orders, Radiology, Other (Consultations) Changes from previous H/P or p: No Changes General: Per HPI Objective Vitals Vital Signs Date Time Temp Pulse Resp B/P (MAP) Pulse Ox O2 Delivery O2 Flow Rate FiO2 09/13/24 09:29 94 19 138/83 (101) 100 30 09/13/24 08:00 Mechanical Ventilator+ 09/13/24 08:00 98.3 98.3 Intake/Output Intake and Output 09/13/24 06:59 Intake Total 4141.248 ml Output Total 4055 ml Balance 86.248 ml Intake Oral 1809 ml IV Total 2182.248 ml Tube Feeding 150 ml Output Urine Total 4050 ml Stool Total 5 ml Exam Constitutional: Patient sedated and on mechanical ventilation, RASS -2 Gen - mild conjuctival pallor, no icterus, no cyanosis, no clubbing, no LAD, 1+ edema in the feet . Skin - Patients skin is warm and dry. HEENT - normocephalic, atraumatic, moist mucous membranes. Neck - full ROM, no LAD, no jvd Pulmonary - B/L air entry present, diffuse rales, no wheezing, no stridor. cardiovascular - regular S1,S2 heard, no added sounds, no murmurs heard. GI - soft abdomen. no hepatospleenomegaly. bowel sounds hypoactive sacrum- ulcer seen , stage 2 ulcer with bloody oozing in gluteal fold Neurological - patient was sedated and on mechanical ventilation. Gag reflex present, asymmetric pupil and reactive General Appearance: Other (Intubated and sedated) HEENT: Atraumatic Lungs: Other (Mechanical ventilation sounds) Cardiovascular: Normal S1, Normal S2, Other (Tachycardia) Abdomen: Normal bowel sounds, Soft Genitourinary: Other (Friedman's) Neuro: Other (Intubated and sedated) Psych/Mental Status: Other (Intubated and sedated) Medications Current Medications Medications Dose Ordered Sig/Nikki Route Start Time Stop Time Status Last Admin Dose Admin Diagnostic Test (Pha) 1 strip ACHS 08/19/24 17:00 Cancel Norepinephrine Bitartrate 250 ml @ 3.75 mls/hr Q24H IV 08/19/24 17:15 Cancel Midazolam HCl 50 ml @ 1 mls/hr Q24H IV 08/19/24 17:15 09/09/24 19:10 1 MLS/HR Ipratropium [place] 0.5 mg Q6HR NEB 08/19/24 18:00 09/13/24 06:16 0.5 MG Albuterol 2.5 mg Q6HR NEB 08/19/24 18:00 09/13/24 06:16 2.5 MG Pantoprazole Sodium 40 mg BID IV 08/20/24 22:00 09/12/24 23:57 40 MG Acetaminophen 650 mg Q6HP PRN MI 08/21/24 01:45 08/23/24 03:36 650 MG Epoetin Aquilino-epbx 10,000 unit TUTHSA@2100 HI 08/26/24 21:00 09/13/24 00:02 10,000 UNIT Albumin Human 100 ml @ 100 mls/hr PRN PRN IV 08/26/24 06:45 08/27/24 07:45 100 MLS/HR Norepinephrine Bitartrate 32 mg/ Sodium Chloride 250 ml @ 0.469 mls/ hr Q24H IV 08/27/24 13:00 09/06/24 01:01 0.469 MLS/HR Heparin Sodium (Porcine) 5,000 units Q12HR SC 08/31/24 22:00 09/13/24 00:02 5,000 UNITS Sodium Chloride 10 ml QSHIFT@10,22 IV 08/31/24 22:00 09/12/24 23:57 10 ML Artificial Tears 2 drop Q4HR PRN EACHEYE 09/02/24 10:45 09/12/24 23:56 2 DROP Dextrose 50 ml UD PRN IV 09/03/24 21:00 Meropenem 50 ml @ 17 mls/hr Q12H IV 09/05/24 00:00 09/13/24 00:03 17 MLS/HR Hydralazine HCl 50 mg Q8HR PRN PO 09/05/24 09:15 Hydralazine HCl 20 mg Q6HP PRN IV 09/08/24 11:45 09/09/24 09:57 20 MG Enteral Nutritional Formula 1,000 ml 60ML/HR GT 09/08/24 22:15 09/12/24 03:52 1,000 ML Insulin Human Regular AC SC 09/09/24 07:00 09/13/24 06:18 6 UNITS Diagnostic Test (Pha) 1 strip ACHS 09/09/24 07:00 09/13/24 06:17 1 STRIP Sodium Chloride 1,000 ml @ 75 mls/hr [id number] IV 09/10/24 08:45 09/13/24 01:05 75 MLS/HR Purified Water 300 ml Q6HR GT 09/10/24 12:00 09/13/24 05:06 300 ML Propofol 100 ml @ 3.672 mls/ hr Q24H IV 09/10/24 22:30 09/13/24 07:00 11.016 MLS/HR Insulin Human Regular HS SC 09/10/24 22:00 09/13/24 00:34 4 UNITS Dopamine HCl/ Dextrose 250 ml @ 9.24 mls/hr Q24H IV 09/11/24 11:15 09/12/24 11:14 9.24 MLS/HR Aspirin 81 mg DAILY PO 09/12/24 10:00 09/12/24 09:39 81 MG Clopidogrel Bisulfate 75 mg DAILY PO 09/12/24 10:00 09/12/24 09:39 75 MG Atorvastatin Calcium 80 mg HS PO 09/12/24 22:00 09/12/24 23:57 80 MG Diagnostic Test (Pha) 1 strip Q6HR 09/11/24 18:00 09/13/24 06:17 1 STRIP Dextrose 50 ml UD PRN IV 09/11/24 16:45 Fentanyl Citrate 250 ml @ 2.5 mls/hr Q24H IV 09/13/24 03:15 09/13/24 03:17 12.5 MLS/HR Laboratory Results Laboratory Tests 09/13/24 03:42 Chemistry Test 09/12/24 10:50 09/13/24 03:42 Calcium Level 9.2 mg/dL (8.7-10.4) 9.2 mg/dL (8.7-10.4) Albumin 3.5 g/dL (3.2-4.8) Magnesium Level 1.9 mg/dL (1.6-2.6) Phosphorus Level 5.3 mg/dL (2.4-5.1) H Total Protein 7.5 g/dL (5.7-8.2) LFT Test 09/13/24 03:42 Alanine Aminotransferase (ALT) 19 U/L (7-40) Alkaline Phosphatase 234 U/L (46-116) H Aspartate Amino Transferase (AST) 21 U/L (13-40) Total Bilirubin 0.3 mg/dL (0.2-1.0) Urinalysis Test 08/19/24 11:25 09/09/24 15:20 Urine Renal Epithelial Cells Few /hpf (None Seen) Urine Amorphous Crystals Few /hpf (None Seen) Urine Mucus Few (None Seen) Urine Sperm Present /hpf (None Seen) Urine Creatinine 77.13 mg/dL (30.0-125.0) Urine Sodium 15 mmol/L (40-220) L Urine Color Light-yellow (Yellow) Urine Clarity Clear (Clear) Urine pH 5.5 (5.0-9.0) Urine Specific [place] 1.015 (1.001-1.035) Urine Protein 1+ (Negative) H Urine Ketones Negative (Negative) Urine Blood 2+ /uL (Negative) H Urine Nitrite Negative (Negative) Urine Bilirubin Negative (Negative) Urine Urobilinogen Normal mg/dL (Negative) Urine Leukocyte Esterase Trace /uL (Negative) Urine RBC 62 /hpf (0 - 3) Urine Microscopic WBC 5 /HPF (0-3) H Urine Squamous Epithelial Cells Few /hpf (<5) Urine Bacteria None seen /hpf (None Seen) Urine Hyaline Casts Few /lpf (0 - 2) Urine Glucose 1+ mg/dL (Normal) H Microbiology Microbiology Date/Time Source Procedure Growth Status 09/10/24 10:47 Catheter Tip Other Aerobic Culture - Preliminary Resulted 09/04/24 10:19 Blood Blood Culture - Final NO GROWTH AFTER 5 DAYS OF INCUBATION. Complete 08/31/24 15:08 Sputum Gram Stain - Final Complete 08/31/24 15:08 Respiratory Culture - Final Presumptive Mary albicans Complete 08/31/24 14:00 Urine - Friedman Port Urine Culture - Final Complete Labs and/or images reviewed: Labs reviewed by me, Image(s) reviewed by me Assessment/Plan Assessment/Plan 09/12- CBC with significant drop in all lines, questionable dilutional drop. We will redraw. Patient has Friedman good output, rectal tube with blood green stained bowel full, patient has a sacral wound and is high risk infectious. Patient remains on dopamine at 1 for renal protective per nephrology to manage. Patient was getting NG feeds and OG tube in place for? Possible worsening obstruction. Patient did come with concern for GI bleed and was intubated for airway protection. Patient did also require bronch to remove plugs. Stay had complication of carotid dialysis which was repaired. When trying to sedation vacation and CPAP patient had poor response and follow up through CT head showed large strokes x2. We will wait for Neurology clearance before trying CPAP trial. Today we will repeat CBC and BMP as there was some hyperkalemia and Lasix was given. We will try sedation vacation to evaluate neuro function but currently no cough or gag reflex. Patient was on propofol and fentanyl. We will try sedation vacation trial. No CPAP trial today. 09/13-following some commands while on sedation, no movements on the right, could likely be prophylaxis from the stroke. Otherwise he was tracking, cough and gag present. We will do sedation vacation today but no CPAP trial as per primary team indications. We will wait for Neurology to approve a CPAP trial today and if given we will probably try tomorrow. Okay to give meds through [facility], reviewed with GI to remove OG if not needed, sedation vacation trial today. Neurology Acute ischemic stroke in the rt cerebellar hemisphere and Left frontoparietal Acute metabolic encephalopathy likely due to sepsis/HHS - MRI demonstrated Acute infarction within the right cerebellar hemisphere measuring 3.2 x 0.7 cm. Left frontoparietal increased T2 signal with mild diffusion restriction signal. This could represent subacute infarct or underlying mass/lesion. - on mechanical ventilation - Patient underwent tracheostomy yesterday. - Patient passed the window period of tPA therapy for ischemic stroke and also he has a recent history of GI bleeding in 1 week. - Consulted neurology - Continue aspirin 81 mg daily, clopidogrel 75 mg daily and atorvastatin 80 mg at HS Respiratory Acute hypoxic respiratory failure Probable aspiration pneumonia ARDS - on mechanical ventilation with FiO2 30%, peep 5 - chest x-ray shows bilateral patchy opacities - ABG compensated - duonebs q6hr - IV antibiotics meropenem, linezolid, micafungin - sputum culture showed growth of yeast Cardiovascular Shock due to sepsis possibly from aspiration Acute on chronic heart failure with reduced ejection fraction - echo showed LVEF< 40% - off norepinephrine Infectious disease Septic shock likely due to aspiration pneumonia Infected Sacral ulcer, unstageable pressure ulcer - on IV antibiotics - culture from sacral ulcer growing enterococcus - blood culture showed no growth - on linezolid Nephrology Metabolic alkalosis likely from intractable vomiting, resolved KATE on CKD likely due to be VMN from dehydration - Last dialysis on 09/07/24 and hold off dialysis per nephrology. - urine output improved - IV NS @ 75 ml/ hr. - Epotein alpha-epbx per protocol GI ?Gastroparesis ?Upper GI bleed - KUB shows nonobstructive bowel gas pattern - Protonix b.i.d. - 4 units of PRBC given, H&H stable - GI on board - CT with PO contrast showed no obstruction. - FOBT positive - Dobbhoff tube with enteral feeding Glucerna Endocrinology Uncontrolled diabetes mellitus with a hyperglycemia Morbid obesity - on insulin sliding scale - lantus 25 unit HS Skin - stage III big ulcer in the sacral area covered with eschar - consulted surgery for possible debridement. Diet: dobhoff tube DVT prophylaxis: heparin Left upper arm PICC placed on 08/31 Friedman's catheter placed on 09/09/24 Plan discussed with: Other My Orders Orders - CUONG PENA MD Procedure Category Date Status Time Fentanyl Drip PHA 09/13/24 In Process 2500mcg/250mlns 03:15 Date of Service: September 13, 2024 Billing Provider: CUONG PENA MD Common Visit Codes: 32740-[id number] CARE 30-74 MIN CUONG PENA MD September 13, 2024 10:22
[2024-09-13] MEDS: MEROPENEM 1GM IVPB 50 ML IV SCH (13:26)
--- NOTE | 2024-09-13 16:30 | DVH ---
Date: 09/13/2024 03:59 PM Examination: XY KUB ABDOMEN SINGLE VIEW History: DOBHOFF DISLODGEMENT Comparison: XY KUB ABDOMEN SINGLE VIEW on DOS: 09/04/24, XY KUB ABDOMEN SINGLE VIEW on DOS: 08/31/24, XY KUB ABDOMEN SINGLE VIEW on DOS: 08/29/24 TECHNIQUE: Frontal views of the abdomen was obtained. FINDINGS: Tracheostomy tube in place. Dobbhoff tube in the stomach. Bowel gas pattern is unremarkable. The lung bases are unremarkable. No acute osseous abnormality identified. IMPRESSION: 1. Dobbhoff tube in the stomach 2. Tracheostomy tube in place 3. Incomplete KUB. HS:Y
--- NOTE | 2024-09-13 19:03 | DVH ---
CHEST RADIOGRAPH Indication: DOBHOFF PLACEMENT VERIFICATION Technique: Single frontal view of the chest was obtained Comparison: XY CHEST PORTABLE on DOS: 09/13/24, XY CHEST PORTABLE on DOS: 09/12/24, XY CHEST PORTABLE o n DOS: 09/11/24 FINDINGS: Lines and Tubes: Tracheostomy tube in place with the tip at the level of the clavicles. Dobbhoff tube below the left diaphragm in the stomach. Lungs: No focal consolidation. Pleura: No effusion. No pneumothorax. Cardiomediastinal contours: Unremarkable Bones: No acute osseous abnormality. IMPRESSION: 1. Dobbhoff tube below the diaphragm in the stomach. HS:Y
--- NOTE | 2024-09-13 23:12 | DVHPN2 ---
Progress Note - Dictate Date Seen: September 13, 2024 Has the PT tested + for MRSA If YES, has PT been informed?: No Medical Necessity Reason Pt with a Central, PICC or Fol: Yes The following are medically ne: Central Line, Chavez Catheter Reason for chavez catheter: Strict I&O Subjective Patient seen and examined at bedside. Sedated, intubated on mechanical ventilator. Overnight events reviewed. vital signs Vital Sign Date Time Temp Pulse Resp B/P (MAP) Pulse Ox O2 Delivery O2 Flow Rate FiO2 09/13/24 23:04 158/92 09/13/24 22:30 91 16 100 09/13/24 22:00 30 09/13/24 22:00 99.0 99.0 09/13/24 22:00 Mechanical Ventilator+ Total Intake and Output 09/12/24 09/12/24 09/13/24 15:00 23:00 07:00 Intake Total 1005.136 ml 1346.640 ml 1769.940 ml Output Total 2150 ml 1905 ml Balance 1005.136 ml -803.360 ml -135.060 ml medications Current Medications Medications Dose Ordered Sig/Nikki Route Start Time Stop Time Status Last Admin Dose Admin Diagnostic Test (Pha) 1 strip ACHS 08/19/24 17:00 Cancel Norepinephrine Bitartrate 250 ml @ 3.75 mls/hr Q24H IV 08/19/24 17:15 Cancel Midazolam HCl 50 ml @ 1 mls/hr Q24H IV 08/19/24 17:15 09/09/24 19:10 1 MLS/HR Ipratropium [place] 0.5 mg Q6HR NEB 08/19/24 18:00 09/13/24 18:10 0.5 MG Albuterol 2.5 mg Q6HR NEB 08/19/24 18:00 09/13/24 18:10 2.5 MG Pantoprazole Sodium 40 mg BID IV 08/20/24 22:00 09/13/24 22:07 40 MG Acetaminophen 650 mg Q6HP PRN TN 08/21/24 01:45 08/23/24 03:36 650 MG Epoetin Aquilino-epbx 10,000 unit TUTHSA@2100 SC 08/26/24 21:00 09/13/24 00:02 10,000 UNIT Albumin Human 100 ml @ 100 mls/hr PRN PRN IV 08/26/24 06:45 08/27/24 07:45 100 MLS/HR Norepinephrine Bitartrate 32 mg/ Sodium Chloride 250 ml @ 0.469 mls/ hr Q24H IV 08/27/24 13:00 09/06/24 01:01 0.469 MLS/HR Heparin Sodium (Porcine) 5,000 units Q12HR SC 08/31/24 22:00 09/13/24 22:08 5,000 UNITS Sodium Chloride 10 ml QSHIFT@10,22 IV 08/31/24 22:00 09/13/24 22:07 10 ML Artificial Tears 2 drop Q4HR PRN EACHEYE 09/02/24 10:45 09/12/24 23:56 2 DROP Dextrose 50 ml UD PRN IV 09/03/24 21:00 Hydralazine HCl 50 mg Q8HR PRN PO 09/05/24 09:15 Hydralazine HCl 20 mg Q6HP PRN IV 09/08/24 11:45 09/13/24 23:04 20 MG Enteral Nutritional Formula 1,000 ml 60ML/HR GT 09/08/24 22:15 09/13/24 13:26 1,000 ML Insulin Human Regular AC SC 09/09/24 07:00 09/13/24 17:08 3 UNITS Diagnostic Test (Pha) 1 strip ACHS 09/09/24 07:00 09/13/24 22:08 1 STRIP Sodium Chloride 1,000 ml @ 75 mls/hr [id number] IV 09/10/24 08:45 09/13/24 13:45 75 MLS/HR Purified Water 300 ml Q6HR GT 09/10/24 12:00 09/13/24 12:01 300 ML Propofol 100 ml @ 3.672 mls/ hr Q24H IV 09/10/24 22:30 09/13/24 19:22 22.032 MLS/HR Insulin Human Regular HS SC 09/10/24 22:00 09/13/24 22:20 3 UNITS Dopamine HCl/ Dextrose 250 ml @ 9.24 mls/hr Q24H IV 09/11/24 11:15 09/13/24 13:26 9.24 MLS/HR Aspirin 81 mg DAILY PO 09/12/24 10:00 09/13/24 10:20 81 MG Clopidogrel Bisulfate 75 mg DAILY PO 09/12/24 10:00 09/13/24 10:20 75 MG Atorvastatin Calcium 80 mg HS PO 09/12/24 22:00 09/13/24 22:07 80 MG Diagnostic Test (Pha) 1 strip Q6HR 09/11/24 18:00 09/13/24 06:17 1 STRIP Dextrose 50 ml UD PRN IV 09/11/24 16:45 Fentanyl Citrate 250 ml @ 2.5 mls/hr Q24H IV 09/13/24 03:15 09/13/24 03:17 12.5 MLS/HR Meropenem 50 ml @ 17 mls/hr Q8HR IV 09/13/24 14:00 09/16/24 02:59 09/13/24 22:08 17 MLS/HR objective Gen.: Patient lying in bed in medical ICU. Sedated, intubated on mechanical ventilator. Head: Normocephalic, atraumatic. Eyes: PERRLA. Ears: Normal external anatomy. Throat: Endotracheal tube and orogastric tube in place. Neck: Supple, trachea midline. Chest: Transmitted breath sounds bilaterally. Decreased air entry bilaterally. No wheezing. Bibasilar crackles. Cardiovascular: Positive S1, positive S2. Regular rate and rhythm. Abdomen: Positive bowel sounds in all 4 quadrants. Soft, nontender, nondistended. : Chavez in place. Normal external genitalia. Rectal: Deferred. Skin: Warm, dry. Intact. Extremities: 2+ radial pulses bilaterally. No lower extremity edema. Neuro: Sedated laboratory and microbiology Laboratory Tests 09/13/24 03:42 Test 09/13/24 03:42 Range/Units Serum Glucose 233 H 74-106 mg/dL Assessment/Plan Impression: Acute hypoxic respiratory failure On mechanical ventilator Gastrointestinal hemorrhage, upper Aspiration pneumonia MAGDALENA mucous plug Obesity BMI 35.9 Events: Remains on vent support Vent settings: AC mode; RR 16, VT 550, PEEP 5, FiO2 30% S/p trach Trach care Sedated on Propofol drip, Fentanyl drip Pt did not tolerate sedation taper. On Dopamine drip 2 mcg/min Continue antibiotics Continue antifungal NGT in place Monitor hemoglobin Monitor renal function - BUN and creatinine elevated Monitor electrolytes. Supplement as necessary. Nephrology recommendations appreciated. TPN for nutritional support Accu-Cheks, ISS S/p vascular surgery for carotid repair. S/p bronchoscopy w/ BAL on 08/23/24 -cleared mucous plugging from L1-L10 and R1- R10 See separate procedure note for details. Chest x-ray reviewed Labs and imaging reviewed. Rest of plan as noted below Plan: s/p intubation on mechanical ventilator. Vent settings: AC mode - RR 16, VT 550, PEEP 5, FiO2 30% Titrate FIO2 to keep O2 saturation above 90%. VAP bundle. Daily ABG and CXR while intubated Sedate for ventilator synchrony Patient underwent therapeutic bronchoscopy on 08/19/24 with clearing of mucous plugging. Aspirated coffee ground material removed from within the bilateral lungs. See separate procedure note for details. Continue bronchodilators. Continue antibiotics. Pressors as necessary for hemodynamic support Titrate to keep mean arterial pressure greater than 65 mmHg. Monitor hemoglobin GI recs appreciated HD per Nephrology Monitor renal function Monitor electrolytes. Supplement as necessary. Monitor ins and outs. Accu-Cheks, ISS GI prophylaxis - Protonix. DVT prophylaxis - Lovenox. Prognosis: Poor given patient's multiple co-morbidities. Condition: Critical Rest of plan per hospitalist and other consultants. A total of 35 minutes of critical care time was spent reviewing the patient record, examining the patient, making a diagnostic and therapeutic plan, discussing this plan with the medical personnel, following up on diagnostic studies and following the patient for clinical stability excluding any and all procedures. At least 50% of this time was spent in direct, [id number] contact. Thank you, DEON Morrison, for allowing me to participate in this patient's care. Further recommendations will depend on the patient's clinical course. Please do not hesitate to contact me if you have any questions or concerns. This medical document was created using an electronic medical record system with [employer] dictation system. Although these documentations are being carefully reviewed, there may still be some phonetic and typographical changes. The errors are purely typographical, due to imperfection on the software program, and do not reflect any compromise in the patient's medical care. Dietary Evaluation Review Recommendations by RD: Protein Supplementation, PPN/TPN Comments: Pt is at high risk of malnutrition due to prolonged vomiting leading to inadequate nutrient intake and hypermetabolic state secondary to acute inflammation. Recommendation: 1) Start PN/TPN per pharmacy 2) If GI is accessible, consider TF Pivot 1.5Cal @ 60ml/hr along with Pro-stat 1 pk TID. Start @ 10ml/hr, increase 10ml/hr Q4H until goal rate is reached. Advance TF rate slowly and gradually to prevent Refeeding syndrome. Water Flush 50ml Q4H if allowed. TF Provision --- TF at goal volume to provide 1440 ml total volume, 2160 kcal (+300 kcal via Pro-stat = 2460 kcal), 135 gm pro (+45 gm via ProStat = 180 gm), 1093 ml H20 (meets 100% est. kcal needs, 100% est. protein needs) 3) Monitor Potassium, Phosphate, Magnesium for Refeeding syndrome 4) Des 1 pk daily For DTI 5) Continue current plan of care Expected Outcomes/Goals: Blood glucose to improve Nutrient intake to meet at least 75% estimated needs FU 2-3 days Food and Nutrition Intake (Mod: <75% est energy req 7days Protein Calorie Malnutrition: Severe Plan discussed with: Other (MARYURI Landry) Critical Care Time(min): 35 LINO CARRION MD September 13, 2024 23:12
[2024-09-14] VITALS (99 sets, daily range): BP systolic 106–156; BP diastolic 63–92; PULSE 67–119; RESP 13–30; TEMP 97.7–99; O2SAT 97–100
[2024-09-14 06:54] LABS: Base Excess -1.1 mmol/L (-2.0-3.0)
[2024-09-14 09:29] LABS: Basophils # (auto) 0.2 10 ^3/uL (0-0.2); Basophils % (auto) 1.1 % (0.0-2.0); Eosinophils # (auto) 0.8 10 ^3/uL (0-0.8); Neutrophils % (auto) 81.1 % (37.0-80.0)
[2024-09-14 09:31] LABS: Eosinophils % (auto) 3.6 % (0.0-7.0); Hematocrit 33.6 % (41.0-53.0); Lymphocytes # (auto) 2.2 10 ^3/uL (0.4-5.4); Lymphocytes % (auto) 9.9 % (10.0-50.0); Mean Corpuscular Hemoglobin 29.4 pg (28.0-32.0); Mean Corpuscular Hgb Conc. 32.7 g/dL (32.0-36.0); Mean Corpuscular Volume 89.9 fL (80.0-100.0); Monocytes % (auto) 4.3 % (0.0-12.0); Neutrophils # (auto) 17.9 10 ^3/uL (1.6-8.6); Platelet Count (auto) 577 10^3/uL (140-450); Red Blood Cells 3.74 10^6/uL (4.5-5.90); Red Cell Distribution Width 15.5 % (11.8-14.3); White Blood Cell 22.1 10^3/uL (4.4-10.8)
[2024-09-14 09:36] LABS: Potassium 3.9 mmol/L (3.5-5.1); Sodium 144 mmol/L (136-145)
[2024-09-14 09:37] LABS: Anion Gap 13 (5-15); Calcium 9.3 mg/dL (8.7-10.4); Carbon Dioxide 22 mmol/L (20-31)
[2024-09-14 09:42] LABS: BUN/Creatinine Ratio 25.3 (10.0-20.0)
[2024-09-14 09:43] LABS: Blood Urea Nitrogen 38 mg/dL (9-23); Chloride 109 mmol/L (98-107); Glucose 227 mg/dL (74-106)
--- NOTE | 2024-09-14 11:08 | DVHPN2 ---
Progress Note - Dictate Date Seen: September 14, 2024 Has the PT tested + for MRSA If YES, has PT been informed?: No Medical Necessity Reason Pt with a Central, PICC or Fol: Yes The following are medically ne: Central Line, Chavez Catheter Reason for chavez catheter: Strict I&O Subjective Mr. Moore is a 44 years old right-handed gentleman with a history of diabetes, kidney failure once on hemodialysis, obesity, the patient was brought to the hospital on 08/19/2024 by the family for altered mental status. I have seen and examined the patient, I have discussed with his nurse, he was sister in the room. he is more responsive to verbal stimuli by a still very weak physically. He follows verbal commands Blood culture, 08/31/2024: Staphylococcus epidermidis, Staphylococcus hominis Stool occult blood, 09/07/2024: Positive UDS, 08/19/2024: Negative Plasma alcohol, 08/19/2024: Normal Urinalysis, 08/19/2024: WBC: 16, urine leukocyte esterase: Trace ABG 08/19/2024: Respiratory c acidosis WBC/HB/PLT/MCV, 08/19/2024: 37.8/14.8/159/86.1 08/25/2024: 34.8/7.7/180/89.5, 09/11/2024:17.2/10/635/86.8 PT/INR/PTT, 09/10/2024: 12.8/1.23/24.9 Na, 08/19/24: 114, 08/20/24: 123, 08/26/24: 134 BUN/CR, 08/19/2024: 112/8.94, 09/09/2024: 82/2.79, 09/11/2024: 81/2.42 HCO3, 08/19/2024: >40, 17, 08/20/2024: 37 Anion gap, 08/19/2024: 22.9999 Beta hydroxybutyric acid, 08/19/2024: 0.498 Lactic acid, 08/19/2024: 5.7, 4.6 HGB A1c, 08/19/2024: 11.7 Liver function tests, 09/07/2024: Unremarkable TG/HDL/LDL/HDL, 09/11/2024: 351/200/134/21 EEG, 09/13/2024: Borderline Carotid Doppler, 09/11/2024: No evidence of hemodynamically significant stenosis in the carotid arteries CT head, 09/11/2024: 1. Findings consistent with acute or subacute left MCA territory infarct. 2. No evidence of acute intracranial hemorrhage. 3. Partial opacification of the mastoid air cells bilaterally, likely effusions. Correlate clinically to exclude mastoiditis. CT head, 09/11/2024: Acute infarction within the right cerebellar hemisphere measuring 3.2 x 0.7 cm. Less pronounced diffusion restriction signal within the left frontoparietal lobe vital signs Vital Sign Date Time Temp Pulse Resp B/P (MAP) Pulse Ox O2 Delivery O2 Flow Rate FiO2 09/14/24 09:54 83 16 145/90 (108) 100 30 09/14/24 08:00 Mechanical Ventilator+ 09/14/24 08:00 97.8 97.8 Total Intake and Output 09/13/24 09/13/24 09/14/24 15:00 23:00 07:00 Intake Total 882.72 ml 978.92 ml 1879.90 ml Output Total 1450 ml 1300 ml Balance 882.72 ml -471.08 ml 579.90 ml medications Current Medications Medications Dose Ordered Sig/Nikki Route Start Time Stop Time Status Last Admin Dose Admin Diagnostic Test (Pha) 1 strip ACHS 08/19/24 17:00 Cancel Norepinephrine Bitartrate 250 ml @ 3.75 mls/hr Q24H IV 08/19/24 17:15 Cancel Midazolam HCl 50 ml @ 1 mls/hr Q24H IV 08/19/24 17:15 09/09/24 19:10 1 MLS/HR Ipratropium [place] 0.5 mg Q6HR NEB 08/19/24 18:00 09/14/24 06:13 0.5 MG Albuterol 2.5 mg Q6HR NEB 08/19/24 18:00 09/14/24 06:13 2.5 MG Pantoprazole Sodium 40 mg BID IV 08/20/24 22:00 09/14/24 09:34 40 MG Acetaminophen 650 mg Q6HP PRN W[place] 08/21/24 01:45 08/23/24 03:36 650 MG Epoetin Aquilino-epbx 10,000 unit TUTHSA@2100 SC 08/26/24 21:00 09/13/24 00:02 10,000 UNIT Albumin Human 100 ml @ 100 mls/hr PRN PRN IV 08/26/24 06:45 08/27/24 07:45 100 MLS/HR Norepinephrine Bitartrate 32 mg/ Sodium Chloride 250 ml @ 0.469 mls/ hr Q24H IV 08/27/24 13:00 09/06/24 01:01 0.469 MLS/HR Heparin Sodium (Porcine) 5,000 units Q12HR SC 08/31/24 22:00 09/14/24 09:35 5,000 UNITS Sodium Chloride 10 ml QSHIFT@, IV 08/31/24 22:00 09/14/24 09:35 10 ML Artificial Tears 2 drop Q4HR PRN EACHEYE 09/02/24 10:45 09/12/24 23:56 2 DROP Dextrose 50 ml UD PRN IV 09/03/24 21:00 Hydralazine HCl 50 mg Q8HR PRN PO 09/05/24 09:15 Hydralazine HCl 20 mg Q6HP PRN IV 09/08/24 11:45 09/13/24 23:04 20 MG Enteral Nutritional Formula 1,000 ml 60ML/HR GT 09/08/24 22:15 09/13/24 13:26 1,000 ML Insulin Human Regular AC SC 09/09/24 07:00 09/14/24 06:07 8 UNITS Diagnostic Test (Pha) 1 strip ACHS 09/09/24 07:00 09/14/24 05:59 1 STRIP Sodium Chloride 1,000 ml @ 75 mls/hr [id number] IV 09/10/24 08:45 09/14/24 03:36 75 MLS/HR Purified Water 300 ml Q6HR GT 09/10/24 12:00 09/14/24 05:59 300 ML Propofol 100 ml @ 3.672 mls/ hr Q24H IV 09/10/24 22:30 09/14/24 07:47 18.36 MLS/HR Insulin Human Regular HS SC 09/10/24 22:00 09/13/24 22:20 3 UNITS Dopamine HCl/ Dextrose 250 ml @ 9.24 mls/hr Q24H IV 09/11/24 11:15 09/13/24 13:26 9.24 MLS/HR Aspirin 81 mg DAILY PO 09/12/24 10:00 09/14/24 09:34 81 MG Clopidogrel Bisulfate 75 mg DAILY PO 09/12/24 10:00 09/14/24 09:34 75 MG Atorvastatin Calcium 80 mg HS PO 09/12/24 22:00 09/13/24 22:07 80 MG Dextrose 50 ml UD PRN IV 09/11/24 16:45 Fentanyl Citrate 250 ml @ 2.5 mls/hr Q24H IV 09/13/24 03:15 09/14/24 08:01 2.5 MLS/HR Meropenem 50 ml @ 17 mls/hr Q8HR IV 09/13/24 14:00 09/16/24 02:59 09/14/24 05:58 17 MLS/HR objective The patient is well-nourished and well-developed with no distress. MENTAL STATUS: Subjective CRANIAL NERVES: Pupils are round and reactive, with a right side slightly bigger when the pupils are dilated. There are spontaneous blinking and possible conjugated eye movement. No signs of facial weakness. There are gagging or coughing reflexes SENSATION: Responses to pain stimuli. MOTOR: Normal tone in the upper and lower extremity. Normal muscle bulk. No fasciculations. He moves the left arm and the leg slight REFLEXES: Deep tendon reflexes are symmetrical. No pathological reflexes. CEREBELLAR/COORDINATION: Deferred GAIT/STATION: deferred laboratory and microbiology Laboratory Tests 09/14/24 08:37 Test 09/14/24 08:37 Range/Units Serum Glucose 227 H 74-106 mg/dL Problem List Left hemisphere stroke Right cerebellum hemispheres stroke Altered mental status Metabolic encephalopathy Hypoxic encephalopathy Toxic encephalopathy Uncontrolled diabetes Acidosis Sepsis, septic shock Urinary tract infection Pneumonia Kidney failure Respiratory failure ICU myopathy Intermittently anisocoria, uncertain clinical significance Assessment/Plan Monitoring Supportive treatment ESTHER ICU care Stabilize vitals/pressor drip Respiratory support/vent management Oxygen Antibiotics Lipitor 80 mg daily Plavix 75 mg daily Aspirin 81 mg daily DVT prophylaxis/heparin subQ GI prophylaxis/Protonix More recommendation per clinical course This medical document was created using an electronic medical record system with [employer] dictation system. Although this document has been carefully reviewed, there may still be some phonetic and typographical errors. These areas are purely typographical due to imperfections of the software programs, and do not reflect any compromise in the patient's medical care Prognosis poor Dietary Evaluation Review Recommendations by RD: Protein Supplementation, PPN/TPN Comments: Pt is at high risk of malnutrition due to prolonged vomiting leading to inadequate nutrient intake and hypermetabolic state secondary to acute inflammation. Recommendation: 1) Start PN/TPN per pharmacy 2) If GI is accessible, consider TF Pivot 1.5Cal @ 60ml/hr along with Pro-stat 1 pk TID. Start @ 10ml/hr, increase 10ml/hr Q4H until goal rate is reached. Advance TF rate slowly and gradually to prevent Refeeding syndrome. Water Flush 50ml Q4H if allowed. TF Provision --- TF at goal volume to provide 1440 ml total volume, 2160 kcal (+300 kcal via Pro-stat = 2460 kcal), 135 gm pro (+45 gm via ProStat = 180 gm), 1093 ml H20 (meets 100% est. kcal needs, 100% est. protein needs) 3) Monitor Potassium, Phosphate, Magnesium for Refeeding syndrome 4) Des 1 pk daily For DTI 5) Continue current plan of care Expected Outcomes/Goals: Blood glucose to improve Nutrient intake to meet at least 75% estimated needs FU 2-3 days Food and Nutrition Intake (Mod: <75% est energy req 7days Protein Calorie Malnutrition: Severe Plan discussed with: Other CHRISTOPHE CHÁVEZ MD September 14, 2024 11:08
--- NOTE | 2024-09-14 14:02 | DVHINCON2 ---
Allergies: Coded Allergies: NO KNOWN ALLERGIES (Unverified , 10/02/14) Vital Signs Vital Signs Date Time Temp Pulse Resp B/P (MAP) Pulse Ox O2 Delivery O2 Flow Rate FiO2 09/14/24 13:38 119 30 144/92 (109) 99 30 09/14/24 12:00 97.7 97.7 09/14/24 12:00 Mechanical Ventilator+ Labs/Diagnostic Data Labs Test 09/14/24 11:18 09/14/24 08:37 09/14/24 06:44 09/13/24 03:42 Range/Units POC Glucose 186 H 70-106 mg/dl White Blood Count 22.1 H 4.4-10.8 10^3/uL Red Blood Count 3.74 L 4.5-5.90 10^6/uL Hemoglobin 11.0 L 13.5-17.5 g/dL Hematocrit 33.6 L 41.0-53.0 % Mean Corpuscular Volume 89.9 80.0-100.0 fL Mean Corpuscular Hemoglobin 29.4 28.0-32.0 pg Mean Corpuscular Hemoglobin Concent 32.7 32.0-36.0 g/dL Red Cell Distribution Width 15.5 H 11.8-14.3 % Platelet Count 577 H 140-450 10^3/uL Mean Platelet Volume 7.6 6.9-10.8 fL Neutrophils (%) (Auto) 81.1 H 37.0-80.0 % Lymphocytes (%) (Auto) 9.9 L 10.0-50.0 % Monocytes (%) (Auto) 4.3 0.0-12.0 % Eosinophils (%) (Auto) 3.6 0.0-7.0 % Basophils (%) (Auto) 1.1 0.0-2.0 % Neutrophils # (Auto) 17.9 H 1.6-8.6 10 ^3/uL Lymphocytes # (Auto) 2.2 0.4-5.4 10 ^3/uL Monocytes # (Auto) 1.0 0-1.3 10 ^3/uL Eosinophils # (Auto) 0.8 0-0.8 10 ^3/uL Basophils # (Auto) 0.2 0-0.2 10 ^3/uL Nucleated Red Blood Cells 0.0 % Sodium Level 144 136-145 mmol/L Potassium Level 3.9 3.5-5.1 mmol/L Chloride Level 109 H 98-107 mmol/L Carbon Dioxide Level 22 20-31 mmol/L Anion Gap 13 5-15 Blood Urea Nitrogen 38 #H 9-23 mg/dL Creatinine 1.50 H 0.700-1.30 mg/dL Glomerular Filtration Rate Calc 59 >90 mL/min BUN/Creatinine Ratio 25.3 H 10.0-20.0 Serum Glucose 227 H 74-106 mg/dL Calcium Level 9.3 8.7-10.4 mg/dL Blood Gas Specimen Type Arterial Blood Gas Sample Site Right radial Blood Gas Patient Temperature 37.0 Arterial Blood Date Drawn [id number] Arterial Blood pH 7.452 H 7.350-7.450 Arterial Blood Partial Pressure CO2 32.5 L 35.0-48.0 mmHg Arterial Blood Partial Pressure O2 107.1 83.0-108.0 mmHg Arterial Blood HCO3 22.2 21.0-28.0 mmol/L Arterial Blood Oxygen Saturation 97.3 94.0-98.0 % Arterial Blood Base Excess -1.1 -2.0-3.0 mmol/L Arterial Blood Oxyhemoglobin 96.6 94.0-98.0 % Arterial Blood Carboxyhemoglobin 0.2 L 0.5-1.5 % Arterial Blood Methemoglobin 0.5 0.0-1.5 % Jasvir Test Yes Blood Gas Total Hemoglobin 11.80 L 13.5-17.5 g/dL Blood Gas Set Respiration Rate 16.0 Blood Gas Modality Vent - ac FiO2 % 30.0 Blood Gas Tidal Volume 550.0 Blood Gas PEEP or CPAP 5.0 Phosphorus Level 5.3 H 2.4-5.1 mg/dL Magnesium Level 1.9 1.6-2.6 mg/dL Total Bilirubin 0.3 0.2-1.0 mg/dL Aspartate Amino Transferase (AST) 21 13-40 U/L Alanine Aminotransferase (ALT) 19 7-40 U/L Alkaline Phosphatase 234 H 46-116 U/L Total Protein 7.5 5.7-8.2 g/dL Albumin 3.5 3.2-4.8 g/dL Test 09/12/24 03:20 09/11/24 08:59 09/11/24 07:25 09/10/24 03:23 Range/Units Differential Total Cells Counted 100.0 100 Neutrophils % (Manual) 88 H 37.0-80.0 Band Neutrophils % (Manual) 2 Lymphocytes % (Manual) 8 L 10.0-50.0 Monocytes % (Manual) 2 0-12 Eosinophils % (Manual) 0 0-7 Basophils % (Manual) 0 0.0-2.0 Metamyelocytes % (manual) 0 Myelocytes % (Manual) 0 Promyelocytes % (Manual) 0 Blast Cells % (Manual) 0 Reactive Lymphocytes 0 Smudge Cells 1 /100 WBC Platelet Estimate Decreased Triglycerides Level 351 H < 150 mg/dL Cholesterol Level 200 H < 200 mg/dL LDL Cholesterol 134 H < 100 mg/dL HDL Cholesterol 21 L 40-59 mg/dL Blood Gas Critical Value Read Back Yes Blood Gas Notified Whom Angela caballero. Blood Gas Notified Time [id number] Blood Gas Notified By Antonio mckeon Prothrombin Time 12.8 H 9.3-11.8 sec Prothrombin Time INR 1.23 H 0.9-1.15 Activated Partial Thromboplast Time 24.9 24.5-34.5 SEC Test 09/09/24 15:20 09/08/24 06:05 09/07/24 17:00 09/02/24 07:20 Range/Units Urine Color Light-yellow Yellow Urine Clarity Clear Clear Urine pH 5.5 5.0-9.0 Urine Specific [place] 1.015 1.001-1.035 Urine Protein 1+ H Negative Urine Ketones Negative Negative Urine Blood 2+ H Negative /uL Urine Nitrite Negative Negative Urine Bilirubin Negative Negative Urine Urobilinogen Normal Negative mg/dL Urine Leukocyte Esterase Trace Negative /uL Urine RBC 62 0 - 3 /hpf Urine Microscopic WBC 5 H 0-3 /HPF Urine Squamous Epithelial Cells Few <5 /hpf Urine Bacteria None seen None Seen /hpf Urine Hyaline Casts Few 0 - 2 /lpf Urine Glucose 1+ H Normal mg/dL Specimen Drawn By Kristie arshad Stool Occult Blood Positive Negative Stool Occult Blood Sample #3 Negative Blood Gas Spontaneous Rate 24 Blood Gas Inspiratory Pressure 26.0 Bl Gas Inspiratory/Expiratory Ratio 1:2.1 Test 09/02/24 03:14 09/01/24 02:58 08/27/24 06:51 08/25/24 20:00 Range/Units Large Platelets Few Giant Platelets Few Blood Gas Spontaneous Tidal Volume 603 Blood Gas Comments Pc 18 i-time .8 Red Blood Cell Morphology Normal Test 08/24/24 03:17 08/20/24 13:11 08/20/24 12:24 08/19/24 20:50 Range/Units Random Vancomycin Level 12.2 H 5-10 ug/mL Hepatitis A IgM Antibody Negative Hepatitis B Surface Antigen Negative Negative Hepatitis B Core IgM Antibody Negative Negative Hepatitis C Antibody Negative Negative Influenza Type A Antigen Negative Negative Influenza Type B Antigen Negative Negative SARS-CoV-2 Antigen (Rapid) Negative NEGATIVE Blood Gas Pressure Support 26 Test 08/19/24 16:55 08/19/24 16:07 08/19/24 13:07 08/19/24 11:25 Range/Units D-Dimer, Quantitative 1.19 H 0.0-0.49 mg/L FEU Creatine Kinase 115 46-171 U/L Amylase Level 47 30-118 U/L Lipase 41 12-53 U/L Blood Gas Liter Flow 15.00 Lactic Acid Level 4.6 *H 0.4-2.0 mmol/L Urine Renal Epithelial Cells Few None Seen /hpf Urine Amorphous Crystals Few None Seen /hpf Urine Mucus Few None Seen Urine Sperm Present None Seen /hpf Urine Creatinine 77.13 30.0-125.0 mg/dL Urine Sodium 15 L 40-220 mmol/L Urine Opiates Screen Neg NEGATIVE Urine Fentanyl Screen Neg NEGATIVE Urine Barbiturates Screen Neg NEGATIVE Urine Phencyclidine Screen Neg NEGATIVE Urine Amphetamines Screen Neg NEGATIVE Urine Benzodiazepines Screen Neg NEGATIVE Urine Cocaine Screen Neg NEGATIVE Urine Cannabinoids Screen Neg NEGATIVE Test 08/19/24 11:00 Range/Units Hemoglobin A1c 11.7 H <5.7 % A1C Beta-Hydroxybutyric Acid 0.498 H < 0.4 mmol/L Plasma/Serum Blood Alcohol < 3.0 <10 mg/dL Microbiology Date/Time Source Procedure Growth Status 09/10/24 10:47 Catheter Tip Other Aerobic Culture - Final Complete 09/04/24 10:19 Blood Blood Culture - Final NO GROWTH AFTER 5 DAYS OF INCUBATION. Complete 08/31/24 15:08 Sputum Gram Stain - Final Complete 08/31/24 15:08 Respiratory Culture - Final Presumptive Mary albicans Complete 08/31/24 14:00 Urine - [place] Urine Culture - Final Complete NATALIE ROSALES RESDIENT September 14, 2024 14:02
[2024-09-14] MEDS ORDERED: VANCOMYCIN PER PHARMACY 0 MG IV SCH (14:15)
--- NOTE | 2024-09-14 15:30 | DVHINCON2 ---
NATALIE ROSALES RESDIENT 09/14/24 1530: Date Seen: September 14, 2024 Referring Physician MD Angela Reason for Consultation ESTHER Dx: Multiple strokes History of Present Illness Patient was a 44-year-old male with a past medical history of diabetes presented to the ER with a chief complaint of intractable vomitings and altered level of consciousness. According to the sister patient has been vomiting persistently for 7-10 days before coming to the hospital. She reports that he took a shot of Ozempic before the vomiting started. While in the ER patient was altered and was not able to protect his airways following which it was decided to intubate him and put him on mechanical ventilation. Before intubation when he was laid flat, had vomiting coffee-ground and aspirated. After intubation patient underwent bronchoscopy with removal of mucus plugs from left upper and left lower lung. Cardiology consulted for ESTHER due to recurrent stroke Past medical history: Diabetes Past surgical history: Left foot surgery Social history: Smokes 1 pack of cigarettes per day, denied alcohol or any other drug use Patient seen and examined at the bedside. Sedated and on tracheostomy, with RASS score -2. Past Medical History Per H&P Past Surgical History Per H&P Family History Per H&P Social History Per H&P Allergies: Coded Allergies: NO KNOWN ALLERGIES (Unverified , 10/02/14) Current Medications Current Medications Medications (Trade) Dose Ordered Sig/Nikki Route PRN Reason Start Time Stop Time Status Last Admin Vancomycin HCl 0 ml @ 0 mls/hr UD IV 09/14/24 14:15 Vancomycin HCl 200 ml @ 200 mls/hr Q12H IV 09/14/24 15:00 Review of Systems Due to altered mental status, ROS could not obtain. Vital Signs Vital Signs Date Time Temp Pulse Resp B/P (MAP) Pulse Ox O2 Delivery O2 Flow Rate FiO2 09/14/24 14:00 30 09/14/24 14:00 21 99 Mechanical Ventilator+ 09/14/24 14:00 89 09/14/24 13:38 144/92 (109) 09/14/24 12:00 97.7 97.7 Physical Exam General: RASS -2, afebrile, mucosae are moist Cardiovascular: Normal S1 and S2. No murmurs, gallops or rubs Respiratory: Mechanically assisted ventilation through tracheostomy tube, equal bilateral airway entree. Clear lung sounds on auscultation Abdomen: Soft, nontender, no organomegaly, normal bowel sounds MSK/skin: Mobilization of limbs cannot be evaluated. Skin is dry and warm. Neurological: Orientation cannot be assessed. Pupils are isocoric and reactive Labs/Diagnostic Data Labs Test 09/14/24 11:18 09/14/24 08:37 09/14/24 06:44 09/13/24 03:42 Range/Units POC Glucose 186 H 70-106 mg/dl White Blood Count 22.1 H 4.4-10.8 10^3/uL Red Blood Count 3.74 L 4.5-5.90 10^6/uL Hemoglobin 11.0 L 13.5-17.5 g/dL Hematocrit 33.6 L 41.0-53.0 % Mean Corpuscular Volume 89.9 80.0-100.0 fL Mean Corpuscular Hemoglobin 29.4 28.0-32.0 pg Mean Corpuscular Hemoglobin Concent 32.7 32.0-36.0 g/dL Red Cell Distribution Width 15.5 H 11.8-14.3 % Platelet Count 577 H 140-450 10^3/uL Mean Platelet Volume 7.6 6.9-10.8 fL Neutrophils (%) (Auto) 81.1 H 37.0-80.0 % Lymphocytes (%) (Auto) 9.9 L 10.0-50.0 % Monocytes (%) (Auto) 4.3 0.0-12.0 % Eosinophils (%) (Auto) 3.6 0.0-7.0 % Basophils (%) (Auto) 1.1 0.0-2.0 % Neutrophils # (Auto) 17.9 H 1.6-8.6 10 ^3/uL Lymphocytes # (Auto) 2.2 0.4-5.4 10 ^3/uL Monocytes # (Auto) 1.0 0-1.3 10 ^3/uL Eosinophils # (Auto) 0.8 0-0.8 10 ^3/uL Basophils # (Auto) 0.2 0-0.2 10 ^3/uL Nucleated Red Blood Cells 0.0 % Sodium Level 144 136-145 mmol/L Potassium Level 3.9 3.5-5.1 mmol/L Chloride Level 109 H 98-107 mmol/L Carbon Dioxide Level 22 20-31 mmol/L Anion Gap 13 5-15 Blood Urea Nitrogen 38 #H 9-23 mg/dL Creatinine 1.50 H 0.700-1.30 mg/dL Glomerular Filtration Rate Calc 59 >90 mL/min BUN/Creatinine Ratio 25.3 H 10.0-20.0 Serum Glucose 227 H 74-106 mg/dL Calcium Level 9.3 8.7-10.4 mg/dL Troponin I High Sensitivity 235 *H </=54 ng/L Thyroid Stimulating Hormone (TSH) 0.10 L 0.55-4.78 uIU/mL Blood Gas Specimen Type Arterial Blood Gas Sample Site Right radial Blood Gas Patient Temperature 37.0 Arterial Blood Date Drawn [id number] Arterial Blood pH 7.452 H 7.350-7.450 Arterial Blood Partial Pressure CO2 32.5 L 35.0-48.0 mmHg Arterial Blood Partial Pressure O2 107.1 83.0-108.0 mmHg Arterial Blood HCO3 22.2 21.0-28.0 mmol/L Arterial Blood Oxygen Saturation 97.3 94.0-98.0 % Arterial Blood Base Excess -1.1 -2.0-3.0 mmol/L Arterial Blood Oxyhemoglobin 96.6 94.0-98.0 % Arterial Blood Carboxyhemoglobin 0.2 L 0.5-1.5 % Arterial Blood Methemoglobin 0.5 0.0-1.5 % Jasvir Test Yes Blood Gas Total Hemoglobin 11.80 L 13.5-17.5 g/dL Blood Gas Set Respiration Rate 16.0 Blood Gas Modality Vent - ac FiO2 % 30.0 Blood Gas Tidal Volume 550.0 Blood Gas PEEP or CPAP 5.0 Phosphorus Level 5.3 H 2.4-5.1 mg/dL Magnesium Level 1.9 1.6-2.6 mg/dL Total Bilirubin 0.3 0.2-1.0 mg/dL Aspartate Amino Transferase (AST) 21 13-40 U/L Alanine Aminotransferase (ALT) 19 7-40 U/L Alkaline Phosphatase 234 H 46-116 U/L Total Protein 7.5 5.7-8.2 g/dL Albumin 3.5 3.2-4.8 g/dL Test 09/12/24 03:20 09/11/24 08:59 09/11/24 07:25 09/10/24 03:23 Range/Units Differential Total Cells Counted 100.0 100 Neutrophils % (Manual) 88 H 37.0-80.0 Band Neutrophils % (Manual) 2 Lymphocytes % (Manual) 8 L 10.0-50.0 Monocytes % (Manual) 2 0-12 Eosinophils % (Manual) 0 0-7 Basophils % (Manual) 0 0.0-2.0 Metamyelocytes % (manual) 0 Myelocytes % (Manual) 0 Promyelocytes % (Manual) 0 Blast Cells % (Manual) 0 Reactive Lymphocytes 0 Smudge Cells 1 /100 WBC Platelet Estimate Decreased Triglycerides Level 351 H < 150 mg/dL Cholesterol Level 200 H < 200 mg/dL LDL Cholesterol 134 H < 100 mg/dL HDL Cholesterol 21 L 40-59 mg/dL Blood Gas Critical Value Read Back Yes Blood Gas Notified Whom Angela castro Blood Gas Notified Time [id number] Blood Gas Notified By Antonio mckeon Prothrombin Time 12.8 H 9.3-11.8 sec Prothrombin Time INR 1.23 H 0.9-1.15 Activated Partial Thromboplast Time 24.9 24.5-34.5 SEC Test 09/09/24 15:20 09/08/24 06:05 09/07/24 17:00 09/02/24 07:20 Range/Units Urine Color Light-yellow Yellow Urine Clarity Clear Clear Urine pH 5.5 5.0-9.0 Urine Specific [place] 1.015 1.001-1.035 Urine Protein 1+ H Negative Urine Ketones Negative Negative Urine Blood 2+ H Negative /uL Urine Nitrite Negative Negative Urine Bilirubin Negative Negative Urine Urobilinogen Normal Negative mg/dL Urine Leukocyte Esterase Trace Negative /uL Urine RBC 62 0 - 3 /hpf Urine Microscopic WBC 5 H 0-3 /HPF Urine Squamous Epithelial Cells Few <5 /hpf Urine Bacteria None seen None Seen /hpf Urine Hyaline Casts Few 0 - 2 /lpf Urine Glucose 1+ H Normal mg/dL Specimen Drawn By Kristie arshad Stool Occult Blood Positive Negative Stool Occult Blood Sample #3 Negative Blood Gas Spontaneous Rate 24 Blood Gas Inspiratory Pressure 26.0 Bl Gas Inspiratory/Expiratory Ratio 1:2.1 Test 09/02/24 03:14 09/01/24 02:58 08/27/24 06:51 08/25/24 20:00 Range/Units Large Platelets Few Giant Platelets Few Blood Gas Spontaneous Tidal Volume 603 Blood Gas Comments Pc 18 i-time .8 Red Blood Cell Morphology Normal Test 08/24/24 03:17 08/20/24 13:11 08/20/24 12:24 08/19/24 20:50 Range/Units Random Vancomycin Level 12.2 H 5-10 ug/mL Hepatitis A IgM Antibody Negative Hepatitis B Surface Antigen Negative Negative Hepatitis B Core IgM Antibody Negative Negative Hepatitis C Antibody Negative Negative Influenza Type A Antigen Negative Negative Influenza Type B Antigen Negative Negative SARS-CoV-2 Antigen (Rapid) Negative NEGATIVE Blood Gas Pressure Support 26 Test 08/19/24 16:55 08/19/24 16:07 08/19/24 13:07 08/19/24 11:25 Range/Units D-Dimer, Quantitative 1.19 H 0.0-0.49 mg/L FEU Creatine Kinase 115 46-171 U/L Amylase Level 47 30-118 U/L Lipase 41 12-53 U/L Blood Gas Liter Flow 15.00 Lactic Acid Level 4.6 *H 0.4-2.0 mmol/L Urine Renal Epithelial Cells Few None Seen /hpf Urine Amorphous Crystals Few None Seen /hpf Urine Mucus Few None Seen Urine Sperm Present None Seen /hpf Urine Creatinine 77.13 30.0-125.0 mg/dL Urine Sodium 15 L 40-220 mmol/L Urine Opiates Screen Neg NEGATIVE Urine Fentanyl Screen Neg NEGATIVE Urine Barbiturates Screen Neg NEGATIVE Urine Phencyclidine Screen Neg NEGATIVE Urine Amphetamines Screen Neg NEGATIVE Urine Benzodiazepines Screen Neg NEGATIVE Urine Cocaine Screen Neg NEGATIVE Urine Cannabinoids Screen Neg NEGATIVE Test 08/19/24 11:00 Range/Units Hemoglobin A1c 11.7 H <5.7 % A1C Beta-Hydroxybutyric Acid 0.498 H < 0.4 mmol/L Plasma/Serum Blood Alcohol < 3.0 <10 mg/dL Microbiology Date/Time Source Procedure Growth Status 09/10/24 10:47 Catheter Tip Other Aerobic Culture - Final Complete 09/04/24 10:19 Blood Blood Culture - Final NO GROWTH AFTER 5 DAYS OF INCUBATION. Complete 08/31/24 15:08 Sputum Gram Stain - Final Complete 08/31/24 15:08 Respiratory Culture - Final Presumptive Mary albicans Complete 08/31/24 14:00 Urine - [place] Urine Culture - Final Complete Assessment Acute metabolic encephalopathy, likely due to sepsis/uremic/stroke Acute hypoxic respiratory failure, likely due to CPAP/aspiration pneumonia/ARDS Recurrent ischemic stroke Possible acute on chronic systolic heart failure NSTEMI, likely type 2, due to above Sepsis, likely due to pneumonia/infected sacral wound Uncontrolled diabetes type 2 with hyperglycemia KATE on possible CKD, improving Obesity, grade 2 [place] grade 3 * EKGs shows, sinus rhythm with no significant ST or T-wave changes * TTE shows, moderate LV dysfunction (LVEF less than 40%), very limited study, only apical images interpreted, RV not well seen * Troponin I is raised at 235 Plan/Recommendation (Case discussed with Dr. Carlos) * Continue aspirin and Plavix * Keep K above 4, and Mag above 2 * Considering patient's current status, comorbidities and having tracheostomy, he is not a good candidate for ESTHER, we will repeat transthoracic echo * Rest of plan, per primary team * We will follow the patient Thank you for allowing us to participate in this patient's care. Please call if you have any questions or concerns. Plan discussed with: Other (RN) NYHA Physical activity limitations: NA Date of Service: September 14, 2024 Billing Provider: DRU CARLOS MD Cardiology Common Codes: 42683-[id number] INP/OBS CARE (High) DRU CARLOS MD 09/15/24 1628: Allergies: Coded Allergies: NO KNOWN ALLERGIES (Unverified , 10/02/14) Plan/Recommendation pt not stable for ESTHER please consider repeat echo , last one a month ago and alternative eval given his risk profile Plan discussed with: Patient NATALIE ROSALES RESDIENT September 14, 2024 15:30 DRU CARLOS MD September 15, 2024 16:28
[2024-09-14 15:43] LABS: Free T3 0.86 pg/mL (2.3-4.2)
[2024-09-14 15:44] LABS: Free T4 (Free Thyroxine) 0.83 ng/dL (0.89-1.76)
--- NOTE | 2024-09-14 15:44 | DVHPN2 ---
Progress Note Date Seen: September 14, 2024 Has the PT tested + for MRSA If YES, has PT been informed?: No Medical Necessity Reason Pt with a Central, PICC or Fol: Yes The following are medically ne: Central Line, Chavez Catheter Reason for chavez catheter: Strict I&O Subjective Patient reports: Other (intubated) Review of Systems: Deferred Objective vital signs Vital Sign Date Time Temp Pulse Resp B/P (MAP) Pulse Ox O2 Delivery O2 Flow Rate FiO2 09/14/24 15:30 78 30 113/63 (80) 99 30 09/14/24 14:00 Mechanical Ventilator+ 09/14/24 12:00 97.7 97.7 Total Intake and Output 09/13/24 09/13/24 09/14/24 15:00 23:00 07:00 Intake Total 882.72 ml 978.92 ml 1879.90 ml Output Total 1450 ml 1300 ml Balance 882.72 ml -471.08 ml 579.90 ml medications Current Medications Medications Dose Ordered Sig/Nikki Route Start Time Stop Time Status Last Admin Dose Admin Diagnostic Test (Pha) 1 strip ACHS 08/19/24 17:00 Cancel Norepinephrine Bitartrate 250 ml @ 3.75 mls/hr Q24H IV 08/19/24 17:15 Cancel Midazolam HCl 50 ml @ 1 mls/hr Q24H IV 08/19/24 17:15 09/09/24 19:10 1 MLS/HR Ipratropium [place] 0.5 mg Q6HR NEB 08/19/24 18:00 09/14/24 11:24 0.5 MG Albuterol 2.5 mg Q6HR NEB 08/19/24 18:00 09/14/24 11:24 2.5 MG Pantoprazole Sodium 40 mg BID IV 08/20/24 22:00 09/14/24 09:34 40 MG Acetaminophen 650 mg Q6HP PRN [place] 08/21/24 01:45 08/23/24 03:36 650 MG Epoetin Aquilino-epbx 10,000 unit TUTHSA@2100 SC 08/26/24 21:00 09/13/24 00:02 10,000 UNIT Albumin Human 100 ml @ 100 mls/hr PRN PRN IV 08/26/24 06:45 08/27/24 07:45 100 MLS/HR Norepinephrine Bitartrate 32 mg/ Sodium Chloride 250 ml @ 0.469 mls/ hr Q24H IV 08/27/24 13:00 09/06/24 01:01 0.469 MLS/HR Heparin Sodium (Porcine) 5,000 units Q12HR SC 08/31/24 22:00 09/14/24 09:35 5,000 UNITS Sodium Chloride 10 ml QSHIFT@10,22 IV 08/31/24 22:00 09/14/24 09:35 10 ML Artificial Tears 2 drop Q4HR PRN EACHEYE 09/02/24 10:45 09/12/24 23:56 2 DROP Dextrose 50 ml UD PRN IV 09/03/24 21:00 Hydralazine HCl 50 mg Q8HR PRN PO 09/05/24 09:15 Hydralazine HCl 20 mg Q6HP PRN IV 09/08/24 11:45 09/13/24 23:04 20 MG Enteral Nutritional Formula 1,000 ml 60ML/HR GT 09/08/24 22:15 09/13/24 13:26 1,000 ML Insulin Human Regular AC SC 09/09/24 07:00 09/14/24 11:31 3 UNITS Diagnostic Test (Pha) 1 strip ACHS 09/09/24 07:00 09/14/24 11:31 1 STRIP Purified Water 300 ml Q6HR GT 09/10/24 12:00 09/14/24 11:44 300 ML Propofol 100 ml @ 3.672 mls/ hr Q24H IV 09/10/24 22:30 09/14/24 07:47 18.36 MLS/HR Insulin Human Regular HS SC 09/10/24 22:00 09/13/24 22:20 3 UNITS Aspirin 81 mg DAILY PO 09/12/24 10:00 09/14/24 09:34 81 MG Clopidogrel Bisulfate 75 mg DAILY PO 09/12/24 10:00 09/14/24 09:34 75 MG Atorvastatin Calcium 80 mg HS PO 09/12/24 22:00 09/13/24 22:07 80 MG Dextrose 50 ml UD PRN IV 09/11/24 16:45 Fentanyl Citrate 250 ml @ 2.5 mls/hr Q24H IV 09/13/24 03:15 09/14/24 08:01 2.5 MLS/HR Meropenem 50 ml @ 17 mls/hr Q8HR IV 09/13/24 14:00 09/16/24 02:59 09/14/24 14:28 17 MLS/HR Vancomycin HCl 0 ml @ 0 mls/hr UD IV 09/14/24 14:15 Vancomycin HCl 200 ml @ 200 mls/hr Q12H IV 09/14/24 15:00 Examination: GENERAL:Abnormal, LUNGS:Abnormal, NEURO:Abnormal laboratory and microbiology Laboratory Tests 09/14/24 08:37 Test 09/14/24 08:37 Range/Units Serum Glucose 227 H 74-106 mg/dL Microbiology Date/Time Source Procedure Growth Status 09/10/24 10:47 Catheter Tip Other Aerobic Culture - Final Complete 09/04/24 10:19 Blood Blood Culture - Final NO GROWTH AFTER 5 DAYS OF INCUBATION. Complete 08/31/24 15:08 Sputum Gram Stain - Final Complete 08/31/24 15:08 Respiratory Culture - Final Presumptive Mary albicans Complete 08/31/24 14:00 Urine - [place] Urine Culture - Final Complete Problem List/Assessment/Plan Problem List/Assessment/Plan Acute kidney injury in the setting of hypotension and volume depletion -> ATN s/p HD Uncontrolled diabetes Ventilator-dependent hypoxic acute respiratory failure due to aspiration pneumonia gastric obstruction vs Illeus w/ persistent vomiting carotid artery injury due to temp HD cath s/p vascular surgery repair femoral tunnel HD catheter placed by vascular hyperkalemia CVA acute Recommendations hold dialysis/HD cath removed Had last dialysis on 09/07/2024 Stopped dopamine Renal function improved I will sign off this case please reconsult if needed d/w sister Plan discussed with: Other Dietary Evaluation Review Recommendations by RD: Protein Supplementation, PPN/TPN Comments: Pt is at high risk of malnutrition due to prolonged vomiting leading to inadequate nutrient intake and hypermetabolic state secondary to acute inflammation. Recommendation: 1) Start PN/TPN per pharmacy 2) If GI is accessible, consider TF Pivot 1.5Cal @ 60ml/hr along with Pro-stat 1 pk TID. Start @ 10ml/hr, increase 10ml/hr Q4H until goal rate is reached. Advance TF rate slowly and gradually to prevent Refeeding syndrome. Water Flush 50ml Q4H if allowed. TF Provision --- TF at goal volume to provide 1440 ml total volume, 2160 kcal (+300 kcal via Pro-stat = 2460 kcal), 135 gm pro (+45 gm via ProStat = 180 gm), 1093 ml H20 (meets 100% est. kcal needs, 100% est. protein needs) 3) Monitor Potassium, Phosphate, Magnesium for Refeeding syndrome 4) Des 1 pk daily For DTI 5) Continue current plan of care Expected Outcomes/Goals: Blood glucose to improve Nutrient intake to meet at least 75% estimated needs FU 2-3 days Food and Nutrition Intake (Mod: <75% est energy req 7days Protein Calorie Malnutrition: Severe KASSANDRA VARGAS MD September 14, 2024 15:44
--- NOTE | 2024-09-14 16:09 | DVHPNRES ---
Progress Note Date Seen: September 14, 2024 Resident Creating Document: ELIO SANTOS RESIDENT Has the PT tested + for MRSA If YES, has PT been informed?: No Medical Necessity Reason Pt with a Central, PICC or Fol: Yes The following are medically ne: Central Line, Chavez Catheter Reason for chavez catheter: Strict I&O Subjective Review of Systems Patient was a 44-year-old male with a past medical history of diabetes presented to the ER with a chief complaint of intractable vomitings and altered level of consciousness. According to the sister patient has been vomiting persistently for 7-10 days before coming to the hospital. She reports that he took a shot of Ozempic before the vomiting started. While in the ER patient was altered and was not able to protect his airways following which it was decided to intubate him and put him on mechanical ventilation. Before intubation when he was laid flat, had vomiting coffee-ground and aspirated. After intubation patient underwent bronchoscopy with removal of mucus plugs from left upper and left lower lung. Past medical history: Diabetes Past surgical history: Left foot surgery Social history: Smokes 1 pack of cigarettes per day, denied alcohol or any other drug use Home medications: ?? Patient seen and examined on the bedside Sedated and on mechanical ventilation Patient is on trach tube and ventilation through the tube. MRI of head demonstrated Acute infarction within the right cerebellar hemisphere measuring 3.2 x 0.7 cm. Left frontoparietal increased T2 signal with mild diffusion restriction signal. This could represent subacute infarct or underlying mass/lesion. Neurology evaluated the patient and recommended ESTHER for possible identification of the source of the emboli for ischemic stroke. EEG demonstrated borderline normal EEG and no focal lateralized or epileptiform features noted. cardiology evaluated the patient and recommended Considering patient's current status, comorbidities and having tracheostomy, he is not a good candidate for ESTHER, we will repeat transthoracic echo. Objective vital signs Vital Sign Date Time Temp Pulse Resp B/P (MAP) Pulse Ox O2 Delivery O2 Flow Rate FiO2 09/14/24 15:30 78 30 113/63 (80) 99 30 09/14/24 14:00 Mechanical Ventilator+ 09/14/24 12:00 97.7 97.7 Total Intake and Output 09/13/24 09/13/24 09/14/24 15:00 23:00 07:00 Intake Total 882.72 ml 978.92 ml 1879.90 ml Output Total 1450 ml 1300 ml Balance 882.72 ml -471.08 ml 579.90 ml medications Current Medications Medications Dose Ordered Sig/Nikki Route Start Time Stop Time Status Last Admin Dose Admin Diagnostic Test (Pha) 1 strip ACHS 08/19/24 17:00 Cancel Norepinephrine Bitartrate 250 ml @ 3.75 mls/hr Q24H IV 08/19/24 17:15 Cancel Midazolam HCl 50 ml @ 1 mls/hr Q24H IV 08/19/24 17:15 09/09/24 19:10 1 MLS/HR Ipratropium Volcano 0.5 mg Q6HR NEB 08/19/24 18:00 09/14/24 11:24 0.5 MG Albuterol 2.5 mg Q6HR NEB 08/19/24 18:00 09/14/24 11:24 2.5 MG Pantoprazole Sodium 40 mg BID IV 08/20/24 22:00 09/14/24 09:34 40 MG Acetaminophen 650 mg Q6HP PRN ME 08/21/24 01:45 08/23/24 03:36 650 MG Epoetin Aquilino-epbx 10,000 unit TUTHSA@2100 [place] 08/26/24 21:00 09/13/24 00:02 10,000 UNIT Albumin Human 100 ml @ 100 mls/hr PRN PRN IV 08/26/24 06:45 08/27/24 07:45 100 MLS/HR Norepinephrine Bitartrate 32 mg/ Sodium Chloride 250 ml @ 0.469 mls/ hr Q24H IV 08/27/24 13:00 09/06/24 01:01 0.469 MLS/HR Heparin Sodium (Porcine) 5,000 units Q12HR SC 08/31/24 22:00 09/14/24 09:35 5,000 UNITS Sodium Chloride 10 ml QSHIFT@10,22 IV 08/31/24 22:00 09/14/24 09:35 10 ML Artificial Tears 2 drop Q4HR PRN EACHEYE 09/02/24 10:45 09/12/24 23:56 2 DROP Dextrose 50 ml UD PRN IV 09/03/24 21:00 Hydralazine HCl 50 mg Q8HR PRN PO 09/05/24 09:15 Hydralazine HCl 20 mg Q6HP PRN IV 09/08/24 11:45 09/13/24 23:04 20 MG Enteral Nutritional Formula 1,000 ml 60ML/HR GT 09/08/24 22:15 09/13/24 13:26 1,000 ML Insulin Human Regular AC SC 09/09/24 07:00 09/14/24 11:31 3 UNITS Diagnostic Test (Pha) 1 strip ACHS 09/09/24 07:00 09/14/24 11:31 1 STRIP Purified Water 300 ml Q6HR GT 09/10/24 12:00 09/14/24 11:44 300 ML Propofol 100 ml @ 3.672 mls/ hr Q24H IV 09/10/24 22:30 09/14/24 07:47 18.36 MLS/HR Insulin Human Regular HS SC 09/10/24 22:00 09/13/24 22:20 3 UNITS Aspirin 81 mg DAILY PO 09/12/24 10:00 09/14/24 09:34 81 MG Clopidogrel Bisulfate 75 mg DAILY PO 09/12/24 10:00 09/14/24 09:34 75 MG Atorvastatin Calcium 80 mg HS PO 09/12/24 22:00 09/13/24 22:07 80 MG Dextrose 50 ml UD PRN IV 09/11/24 16:45 Fentanyl Citrate 250 ml @ 2.5 mls/hr Q24H IV 09/13/24 03:15 09/14/24 08:01 2.5 MLS/HR Meropenem 50 ml @ 17 mls/hr Q8HR IV 09/13/24 14:00 09/16/24 02:59 09/14/24 14:28 17 MLS/HR Vancomycin HCl 0 ml @ 0 mls/hr UD IV 09/14/24 14:15 Vancomycin HCl 200 ml @ 200 mls/hr Q12H IV 09/14/24 15:00 Examination Examination: Constitutional: Patient sedated and on mechanical ventilation, RASS -2 Gen - mild conjuctival pallor, no icterus, no cyanosis, no clubbing, no LAD, 1+ edema in the feet . Skin - Patients skin is warm and dry. HEENT - normocephalic, atraumatic, moist mucous membranes. Neck - full ROM, no LAD, no jvd Pulmonary - B/L air entry present, diffuse rales, no wheezing, no stridor. cardiovascular - regular S1,S2 heard, no added sounds, no murmurs heard. GI - soft abdomen. no hepatospleenomegaly. bowel sounds hypoactive sacrum- ulcer seen , stage 2 ulcer with bloody oozing in gluteal fold Neurological - patient was sedated and on mechanical ventilation. Gag reflex present, asymmetric pupil and reactive laboratory and microbiology Laboratory Tests 09/14/24 08:37 Test 09/14/24 08:37 Range/Units Serum Glucose 227 H 74-106 mg/dL Microbiology Date/Time Source Procedure Growth Status 09/10/24 10:47 Catheter Tip Other Aerobic Culture - Final Complete 09/04/24 10:19 Blood Blood Culture - Final NO GROWTH AFTER 5 DAYS OF INCUBATION. Complete 08/31/24 15:08 Sputum Gram Stain - Final Complete 08/31/24 15:08 Respiratory Culture - Final Presumptive Mary albicans Complete 08/31/24 14:00 Urine - [place] Urine Culture - Final Complete Labs and/or images reviewed: Labs reviewed by me Problem List/Assessment/Plan Problem List/Assessment/Plan Assessment and plan: Neurology Acute ischemic stroke in the rt cerebellar hemisphere and Left frontoparietal Acute metabolic encephalopathy likely due to sepsis/HHS - MRI demonstrated Acute infarction within the right cerebellar hemisphere measuring 3.2 x 0.7 cm. Left frontoparietal increased T2 signal with mild diffusion restriction signal. This could represent subacute infarct or underlying mass/lesion. - on mechanical ventilation - Patient underwent tracheostomy yesterday. - Patient passed the window period of tPA therapy for ischemic stroke and also he has a recent history of GI bleeding in 1 week. - Consulted neurology - Continue aspirin 81 mg daily, clopidogrel 75 mg daily and atorvastatin 80 mg at HS - Neurology evaluated the patient and recommended ESTHER for possible identification of the source of the emboli for ischemic stroke. EEG demonstrated borderline normal EEG and no focal lateralized or epileptiform features noted. cardiology evaluated the patient and recommended Considering patient's current status, comorbidities and having tracheostomy, he is not a good candidate for ESTHER, we will repeat transthoracic echo. Respiratory Acute hypoxic respiratory failure Probable aspiration pneumonia ARDS - on mechanical ventilation with FiO2 30%, peep 5 - chest x-ray shows bilateral patchy opacities - ABG compensated - duonebs q6hr - IV antibiotics meropenem, linezolid, micafungin - sputum culture showed growth of yeast Cardiovascular Shock due to sepsis possibly from aspiration Acute on chronic heart failure with reduced ejection fraction - echo showed LVEF< 40% - off norepinephrine Infectious disease Septic shock likely due to aspiration pneumonia Infected Sacral ulcer, unstageable pressure ulcer - on IV antibiotics - culture from sacral ulcer growing enterococcus - blood culture showed no growth - on linezolid Nephrology Metabolic alkalosis likely from intractable vomiting, resolved KATE on CKD likely due to be VMN from dehydration - Last dialysis on 09/07/24 and hold off dialysis per nephrology. - urine output improved - IV NS @ 75 ml/ hr. - Epotein alpha-epbx per protocol GI ?Gastroparesis ?Upper GI bleed - KUB shows nonobstructive bowel gas pattern - Protonix b.i.d. - 4 units of PRBC given, H&H stable - GI on board - CT with PO contrast showed no obstruction. - FOBT positive - Dobbhoff tube with enteral feeding Glucerna Endocrinology Uncontrolled diabetes mellitus with a hyperglycemia Morbid obesity - on insulin sliding scale - lantus 25 unit HS Skin - stage III big ulcer in the sacral area covered with eschar - consulted surgery for possible debridement. Diet: dobhoff tube DVT prophylaxis: heparin Left upper arm PICC placed on 08/31 Chavez's catheter placed on 09/09/24 Goals of care discussed with the patient's sister Sheree for over 27 mins. Full code Critical care time spent including monitoring during trach collar trial 81 minutes Plan discussed with Dr. Flowers Plan discussed with: Other (RN, Sister) My Orders My Orders Orders - ELIO SANTOS RESIDENT Procedure Category Date Status Time * Surgical Consult CONS 09/14/24 Transmitted 12:53 * Padder CONS 09/14/24 Transmitted Consult Dietary Evaluation Review Recommendations by RD: Protein Supplementation, PPN/TPN Comments: Pt is at high risk of malnutrition due to prolonged vomiting leading to inadequate nutrient intake and hypermetabolic state secondary to acute inflammation. Recommendation: 1) Start PN/TPN per pharmacy 2) If GI is accessible, consider TF Pivot 1.5Cal @ 60ml/hr along with Pro-stat 1 pk TID. Start @ 10ml/hr, increase 10ml/hr Q4H until goal rate is reached. Advance TF rate slowly and gradually to prevent Refeeding syndrome. Water Flush 50ml Q4H if allowed. TF Provision --- TF at goal volume to provide 1440 ml total volume, 2160 kcal (+300 kcal via Pro-stat = 2460 kcal), 135 gm pro (+45 gm via ProStat = 180 gm), 1093 ml H20 (meets 100% est. kcal needs, 100% est. protein needs) 3) Monitor Potassium, Phosphate, Magnesium for Refeeding syndrome 4) Des 1 pk daily For DTI 5) Continue current plan of care Expected Outcomes/Goals: Blood glucose to improve Nutrient intake to meet at least 75% estimated needs FU 2-3 days Food and Nutrition Intake (Mod: <75% est energy req 7days Protein Calorie Malnutrition: Severe Date of Service: September 14, 2024 Billing Provider: ARMANDO FLOWERS MD Common Visit Codes: 80567-[id number] CARE 30-74 MIN, 37240-[id number] CARE-EACH +30MIN ELIO SANTOS RESIDENT September 14, 2024 16:09 ARMANDO FLOWERS MD September 15, 2024 15:12
[2024-09-14] MEDS: VANCOMYCIN 1GM/200ML PM 200 ML IV SCH (16:18)
--- NOTE | 2024-09-14 16:28 | DVHINCON2 ---
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 Patient is been bed-bound and vented since. Now has a sacral decubitus with the elevated white count. Here for evaluation of the wound. Allergies and medications Allergies: Coded Allergies: NO KNOWN ALLERGIES (Unverified , 10/02/14) Review of systems Review of Systems: Deferred Examination Vital signs Vital Signs Date Time Temp Pulse Resp B/P (MAP) Pulse Ox O2 Delivery O2 Flow Rate FiO2 09/14/24 16:00 18 98 Mechanical Ventilator+ 30 30 09/14/24 16:00 97.8 77 118/74 (89) 97.8 Medications Current Medications Medications (Trade) Dose Ordered Sig/Nikki Route PRN Reason Start Time Stop Time Status Last Admin Vancomycin HCl 0 ml @ 0 mls/hr UD IV 09/14/24 14:15 Vancomycin HCl 200 ml @ 200 mls/hr Q12H IV 09/14/24 15:00 09/14/24 16:18 Laboratory Labs Test 09/14/24 11:18 09/14/24 08:37 09/14/24 06:44 09/13/24 03:42 Range/Units POC Glucose 186 H 70-106 mg/dl White Blood Count 22.1 H 4.4-10.8 10^3/uL Red Blood Count 3.74 L 4.5-5.90 10^6/uL Hemoglobin 11.0 L 13.5-17.5 g/dL Hematocrit 33.6 L 41.0-53.0 % Mean Corpuscular Volume 89.9 80.0-100.0 fL Mean Corpuscular Hemoglobin 29.4 28.0-32.0 pg Mean Corpuscular Hemoglobin Concent 32.7 32.0-36.0 g/dL Red Cell Distribution Width 15.5 H 11.8-14.3 % Platelet Count 577 H 140-450 10^3/uL Mean Platelet Volume 7.6 6.9-10.8 fL Neutrophils (%) (Auto) 81.1 H 37.0-80.0 % Lymphocytes (%) (Auto) 9.9 L 10.0-50.0 % Monocytes (%) (Auto) 4.3 0.0-12.0 % Eosinophils (%) (Auto) 3.6 0.0-7.0 % Basophils (%) (Auto) 1.1 0.0-2.0 % Neutrophils # (Auto) 17.9 H 1.6-8.6 10 ^3/uL Lymphocytes # (Auto) 2.2 0.4-5.4 10 ^3/uL Monocytes # (Auto) 1.0 0-1.3 10 ^3/uL Eosinophils # (Auto) 0.8 0-0.8 10 ^3/uL Basophils # (Auto) 0.2 0-0.2 10 ^3/uL Nucleated Red Blood Cells 0.0 % Sodium Level 144 136-145 mmol/L Potassium Level 3.9 3.5-5.1 mmol/L Chloride Level 109 H 98-107 mmol/L Carbon Dioxide Level 22 20-31 mmol/L Anion Gap 13 5-15 Blood Urea Nitrogen 38 #H 9-23 mg/dL Creatinine 1.50 H 0.700-1.30 mg/dL Glomerular Filtration Rate Calc 59 >90 mL/min BUN/Creatinine Ratio 25.3 H 10.0-20.0 Serum Glucose 227 H 74-106 mg/dL Calcium Level 9.3 8.7-10.4 mg/dL Troponin I High Sensitivity 235 *H </=54 ng/L B-Type Natriuretic Peptide 34.77 0-100 pg/mL Thyroid Stimulating Hormone (TSH) 0.10 L 0.55-4.78 uIU/mL Free Thyroxine (T4) Calculated 0.83 L 0.89-1.76 ng/dL Free Triiodothyronine (T3) pg/mL 0.86 L 2.3-4.2 pg/mL Blood Gas Specimen Type Arterial Blood Gas Sample Site Right radial Blood Gas Patient Temperature 37.0 Arterial Blood Date Drawn [id number] Arterial Blood pH 7.452 H 7.350-7.450 Arterial Blood Partial Pressure CO2 32.5 L 35.0-48.0 mmHg Arterial Blood Partial Pressure O2 107.1 83.0-108.0 mmHg Arterial Blood HCO3 22.2 21.0-28.0 mmol/L Arterial Blood Oxygen Saturation 97.3 94.0-98.0 % Arterial Blood Base Excess -1.1 -2.0-3.0 mmol/L Arterial Blood Oxyhemoglobin 96.6 94.0-98.0 % Arterial Blood Carboxyhemoglobin 0.2 L 0.5-1.5 % Arterial Blood Methemoglobin 0.5 0.0-1.5 % Jasvir Test Yes Blood Gas Total Hemoglobin 11.80 L 13.5-17.5 g/dL Blood Gas Set Respiration Rate 16.0 Blood Gas Modality Vent - ac FiO2 % 30.0 Blood Gas Tidal Volume 550.0 Blood Gas PEEP or CPAP 5.0 Phosphorus Level 5.3 H 2.4-5.1 mg/dL Magnesium Level 1.9 1.6-2.6 mg/dL Total Bilirubin 0.3 0.2-1.0 mg/dL Aspartate Amino Transferase (AST) 21 13-40 U/L Alanine Aminotransferase (ALT) 19 7-40 U/L Alkaline Phosphatase 234 H 46-116 U/L Total Protein 7.5 5.7-8.2 g/dL Albumin 3.5 3.2-4.8 g/dL Test 09/12/24 03:20 09/11/24 08:59 09/11/24 07:25 09/10/24 03:23 Range/Units Differential Total Cells Counted 100.0 100 Neutrophils % (Manual) 88 H 37.0-80.0 Band Neutrophils % (Manual) 2 Lymphocytes % (Manual) 8 L 10.0-50.0 Monocytes % (Manual) 2 0-12 Eosinophils % (Manual) 0 0-7 Basophils % (Manual) 0 0.0-2.0 Metamyelocytes % (manual) 0 Myelocytes % (Manual) 0 Promyelocytes % (Manual) 0 Blast Cells % (Manual) 0 Reactive Lymphocytes 0 Smudge Cells 1 /100 WBC Platelet Estimate Decreased Triglycerides Level 351 H < 150 mg/dL Cholesterol Level 200 H < 200 mg/dL LDL Cholesterol 134 H < 100 mg/dL HDL Cholesterol 21 L 40-59 mg/dL Blood Gas Critical Value Read Back Yes Blood Gas Notified Whom Angela castro Blood Gas Notified Time [id number] Blood Gas Notified By Antonio mckeon Prothrombin Time 12.8 H 9.3-11.8 sec Prothrombin Time INR 1.23 H 0.9-1.15 Activated Partial Thromboplast Time 24.9 24.5-34.5 SEC Test 09/09/24 15:20 09/08/24 06:05 09/07/24 17:00 09/02/24 07:20 Range/Units Urine Color Light-yellow Yellow Urine Clarity Clear Clear Urine pH 5.5 5.0-9.0 Urine Specific [place] 1.015 1.001-1.035 Urine Protein 1+ H Negative Urine Ketones Negative Negative Urine Blood 2+ H Negative /uL Urine Nitrite Negative Negative Urine Bilirubin Negative Negative Urine Urobilinogen Normal Negative mg/dL Urine Leukocyte Esterase Trace Negative /uL Urine RBC 62 0 - 3 /hpf Urine Microscopic WBC 5 H 0-3 /HPF Urine Squamous Epithelial Cells Few <5 /hpf Urine Bacteria None seen None Seen /hpf Urine Hyaline Casts Few 0 - 2 /lpf Urine Glucose 1+ H Normal mg/dL Specimen Drawn By Kristie arshad Stool Occult Blood Positive Negative Stool Occult Blood Sample #3 Negative Blood Gas Spontaneous Rate 24 Blood Gas Inspiratory Pressure 26.0 Bl Gas Inspiratory/Expiratory Ratio 1:2.1 Test 09/02/24 03:14 09/01/24 02:58 08/27/24 06:51 08/25/24 20:00 Range/Units Large Platelets Few Giant Platelets Few Blood Gas Spontaneous Tidal Volume 603 Blood Gas Comments Pc 18 i-time .8 Red Blood Cell Morphology Normal Test 08/24/24 03:17 08/20/24 13:11 08/20/24 12:24 08/19/24 20:50 Range/Units Random Vancomycin Level 12.2 H 5-10 ug/mL Hepatitis A IgM Antibody Negative Hepatitis B Surface Antigen Negative Negative Hepatitis B Core IgM Antibody Negative Negative Hepatitis C Antibody Negative Negative Influenza Type A Antigen Negative Negative Influenza Type B Antigen Negative Negative SARS-CoV-2 Antigen (Rapid) Negative NEGATIVE Blood Gas Pressure Support 26 Test 08/19/24 16:55 08/19/24 16:07 08/19/24 13:07 08/19/24 11:25 Range/Units D-Dimer, Quantitative 1.19 H 0.0-0.49 mg/L FEU Creatine Kinase 115 46-171 U/L Amylase Level 47 30-118 U/L Lipase 41 12-53 U/L Blood Gas Liter Flow 15.00 Lactic Acid Level 4.6 *H 0.4-2.0 mmol/L Urine Renal Epithelial Cells Few None Seen /hpf Urine Amorphous Crystals Few None Seen /hpf Urine Mucus Few None Seen Urine Sperm Present None Seen /hpf Urine Creatinine 77.13 30.0-125.0 mg/dL Urine Sodium 15 L 40-220 mmol/L Urine Opiates Screen Neg NEGATIVE Urine Fentanyl Screen Neg NEGATIVE Urine Barbiturates Screen Neg NEGATIVE Urine Phencyclidine Screen Neg NEGATIVE Urine Amphetamines Screen Neg NEGATIVE Urine Benzodiazepines Screen Neg NEGATIVE Urine Cocaine Screen Neg NEGATIVE Urine Cannabinoids Screen Neg NEGATIVE Test 08/19/24 11:00 Range/Units Hemoglobin A1c 11.7 H <5.7 % A1C Beta-Hydroxybutyric Acid 0.498 H < 0.4 mmol/L Plasma/Serum Blood Alcohol < 3.0 <10 mg/dL Microbiology Date/Time Source Procedure Growth Status 09/10/24 10:47 Catheter Tip Other Aerobic Culture - Final Complete 09/04/24 10:19 Blood Blood Culture - Final NO GROWTH AFTER 5 DAYS OF INCUBATION. Complete 08/31/24 15:08 Sputum Gram Stain - Final Complete 08/31/24 15:08 Respiratory Culture - Final Presumptive Mary albicans Complete 08/31/24 14:00 Urine - [place] Urine Culture - Final Complete Examination: SKIN:Abnormal (Black eschar noted on the sacrum no evidence of purulent drainage. No evidence of cellulitis.) Problem List/Assessment/Plan Problems: (1) Leukocytosis Assessment and Plan Sacral decubitus Continue with current wound care offloading. Regular reassessment for possible debridement in the future. Plan discussed with Plan discussed with: Other (Nurse) Visit Coding Surgery Date of Service if different f: September 14, 2024 Billing Provider: KAILASH GUTIERREZ Jr., MD Surgery Visit Codes: 06318 - INP CONSULT <80 MIN KAILASH GUTIERREZ Jr., MD September 14, 2024 16:28
[2024-09-15] VITALS (72 sets, daily range): BP systolic 99–158; BP diastolic 51–84; PULSE 67–113; RESP 8–31; TEMP 98.4–98.8; O2SAT 95–100
[2024-09-15 04:42] LABS: Basophils # (auto) 0.3 10 ^3/uL (0-0.2); Basophils % (auto) 1.4 % (0.0-2.0); Eosinophils # (auto) 0.5 10 ^3/uL (0-0.8); Eosinophils % (auto) 2.9 % (0.0-7.0); Hematocrit 29.3 % (41.0-53.0); Hemoglobin 9.8 g/dL (13.5-17.5); Lymphocytes # (auto) 1.9 10 ^3/uL (0.4-5.4); Lymphocytes % (auto) 10.3 % (10.0-50.0); Mean Corpuscular Hemoglobin 29.1 pg (28.0-32.0); Mean Corpuscular Hgb Conc. 33.2 g/dL (32.0-36.0); Mean Corpuscular Volume 87.6 fL (80.0-100.0); Monocytes % (auto) 5.4 % (0.0-12.0); Neutrophils # (auto) 14.3 10 ^3/uL (1.6-8.6); Nucleated Red Blood Cells % 0.1 %; Platelet Count (auto) 488 10^3/uL (140-450); Red Blood Cells 3.35 10^6/uL (4.5-5.90); Red Cell Distribution Width 15.6 % (11.8-14.3); White Blood Cell 17.9 10^3/uL (4.4-10.8)
[2024-09-15 04:46] LABS: Calcium 8.7 mg/dL (8.7-10.4)
[2024-09-15 04:47] LABS: Anion Gap 13 (5-15); Carbon Dioxide 23 mmol/L (20-31)
[2024-09-15 04:53] LABS: BUN/Creatinine Ratio 24.8 (10.0-20.0)
[2024-09-15 05:10] LABS: Blood Urea Nitrogen 37 mg/dL (9-23); Chloride 110 mmol/L (98-107); Glucose 231 mg/dL (74-106); Potassium 3.5 mmol/L (3.5-5.1); Sodium 146 mmol/L (136-145)
--- NOTE | 2024-09-15 07:25 | DVH ---
EXAM: XR Chest, 1 View CLINICAL INDICATION: Mechanical ventilation, status post tracheostomy TECHNIQUE: Frontal view of the chest. COMPARISON: XY CHEST PORTABLE on DOS: 09/13/24, XY CHEST PORTABLE on DOS: 09/13/24, XY CHEST PORTABLE on DOS: 09/12/24, XY CHEST PORTABLE on DOS: 09/11/24, XY CHEST XRAY 1 VIEW on DOS: 09/10/24 FINDINGS: LUNGS AND PLEURAL SPACES: Pulmonary congestion and edema. Pneumonia cannot be excluded. No pneumot horax. HEART: Unremarkable. No cardiomegaly. MEDIASTINUM: Unremarkable. Normal mediastinal contour. BONES/JOINTS: Unremarkable. No acute fracture. TUBES, LINES AND DEVICES: Tracheostomy tube in satisfactory position. Enteric tube tip cannot be s een but is below the diaphragm. OTHER FINDINGS: . . IMPRESSION: Pulmonary congestion and edema. Pneumonia cannot be excluded.
[2024-09-15 07:42] LABS: Base Excess -2.2 mmol/L (-2.0-3.0)
[2024-09-15] MEDS: PANTOPRAZOLE 40 MG/10 ML VIAL INJ IV SCH (09:28)
--- NOTE | 2024-09-15 10:00 | ECG ---
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
[2024-09-15] MEDS: OPTISON 3ml Vial for INJ IV ONE (10:21)
--- NOTE | 2024-09-15 11:06 | DVHPN2 ---
Progress Note - Dictate Date Seen: September 15, 2024 Has the PT tested + for MRSA If YES, has PT been informed?: No Medical Necessity Reason Pt with a Central, PICC or Fol: Yes The following are medically ne: Central Line, Chavez Catheter Reason for chavez catheter: Strict I&O Subjective Mr. Moore is a 44 years old right-handed gentleman with a history of diabetes, kidney failure once on hemodialysis, obesity, the patient was brought to the hospital on 08/19/2024 by the family for altered mental status. I have seen and examined the patient, I have discussed with his nurse, he is stronger today, he follows, he moves the head and extremity more than yesterday Blood culture, 08/31/2024: Staphylococcus epidermidis, Staphylococcus hominis Stool occult blood, 09/07/2024: Positive UDS, 08/19/2024: Negative Plasma alcohol, 08/19/2024: Normal Urinalysis, 08/19/2024: WBC: 16, urine leukocyte esterase: Trace ABG 08/19/2024: Respiratory c acidosis WBC/HB/PLT/MCV, 08/19/2024: 37.8/14.8/159/86.1 08/25/2024: 34.8/7.7/180/89.5, 09/11/2024:17.2/10/635/86.8 PT/INR/PTT, 09/10/2024: 12.8/1.23/24.9 Na, 08/19/24: 114, 08/20/24: 123, 08/26/24: 134 BUN/CR, 08/19/2024: 112/8.94, 09/09/2024: 82/2.79, 09/11/2024: 81/2.42 HCO3, 08/19/2024: >40, 17, 08/20/2024: 37 Anion gap, 08/19/2024: 22.9999 Beta hydroxybutyric acid, 08/19/2024: 0.498 Lactic acid, 08/19/2024: 5.7, 4.6 HGB A1c, 08/19/2024: 11.7 Liver function tests, 09/07/2024: Unremarkable TG/HDL/LDL/HDL, 09/11/2024: 351/200/134/21 EEG, 09/13/2024: Borderline Carotid Doppler, 09/11/2024: No evidence of hemodynamically significant stenosis in the carotid arteries CT head, 09/11/2024: 1. Findings consistent with acute or subacute left MCA territory infarct. 2. No evidence of acute intracranial hemorrhage. 3. Partial opacification of the mastoid air cells bilaterally, likely effusions. Correlate clinically to exclude mastoiditis. CT head, 09/11/2024: Acute infarction within the right cerebellar hemisphere measuring 3.2 x 0.7 cm. Less pronounced diffusion restriction signal within the left frontoparietal lobe vital signs Vital Sign Date Time Temp Pulse Resp B/P (MAP) Pulse Ox O2 Delivery O2 Flow Rate FiO2 09/15/24 09:41 72 18 109/62 (78) 100 30 09/15/24 08:00 Mechanical Ventilator+ 09/15/24 08:00 98.7 98.7 Total Intake and Output 09/14/24 09/14/24 09/15/24 15:00 23:00 07:00 Intake Total 685.76 ml 1087.52 ml 1500.105 ml Output Total 1400 ml 1275 ml Balance 685.76 ml -312.48 ml 225.105 ml medications Current Medications Medications Dose Ordered Sig/Nikki Route Start Time Stop Time Status Last Admin Dose Admin Diagnostic Test (Pha) 1 strip ACHS 08/19/24 17:00 Cancel Norepinephrine Bitartrate 250 ml @ 3.75 mls/hr Q24H IV 08/19/24 17:15 Cancel Midazolam HCl 50 ml @ 1 mls/hr Q24H IV 08/19/24 17:15 09/09/24 19:10 1 MLS/HR Ipratropium [place] 0.5 mg Q6HR NEB 08/19/24 18:00 09/15/24 06:32 0.5 MG Albuterol 2.5 mg Q6HR NEB 08/19/24 18:00 09/15/24 06:32 2.5 MG Acetaminophen 650 mg Q6HP PRN [place] 08/21/24 01:45 08/23/24 03:36 650 MG Epoetin Aquilino-epbx 10,000 unit TUTHSA@2100 SC 08/26/24 21:00 09/13/24 00:02 10,000 UNIT Albumin Human 100 ml @ 100 mls/hr PRN PRN IV 08/26/24 06:45 08/27/24 07:45 100 MLS/HR Norepinephrine Bitartrate 32 mg/ Sodium Chloride 250 ml @ 0.469 mls/ hr Q24H IV 08/27/24 13:00 09/06/24 01:01 0.469 MLS/HR Heparin Sodium (Porcine) 5,000 units Q12HR SC 08/31/24 22:00 09/15/24 09:37 5,000 UNITS Sodium Chloride 10 ml QSHIFT@10,22 IV 08/31/24 22:00 09/15/24 09:28 10 ML Artificial Tears 2 drop Q4HR PRN EACHEYE 09/02/24 10:45 09/14/24 21:59 2 DROP Dextrose 50 ml UD PRN IV 09/03/24 21:00 Hydralazine HCl 50 mg Q8HR PRN PO 09/05/24 09:15 Hydralazine HCl 20 mg Q6HP PRN IV 09/08/24 11:45 09/13/24 23:04 20 MG Enteral Nutritional Formula 1,000 ml 60ML/HR GT 09/08/24 22:15 09/14/24 17:25 1,000 ML Insulin Human Regular AC SC 09/09/24 07:00 09/15/24 06:45 9 UNITS Diagnostic Test (Pha) 1 strip ACHS 09/09/24 07:00 09/15/24 06:41 1 STRIP Purified Water 300 ml Q6HR GT 09/10/24 12:00 09/15/24 06:09 300 ML Propofol 100 ml @ 3.672 mls/ hr Q24H IV 09/10/24 22:30 09/14/24 07:47 18.36 MLS/HR Aspirin 81 mg DAILY PO 09/12/24 10:00 09/15/24 09:28 81 MG Clopidogrel Bisulfate 75 mg DAILY PO 09/12/24 10:00 09/15/24 09:28 75 MG Atorvastatin Calcium 80 mg HS PO 09/12/24 22:00 09/14/24 21:53 80 MG Fentanyl Citrate 250 ml @ 2.5 mls/hr Q24H IV 09/13/24 03:15 09/14/24 08:01 2.5 MLS/HR Meropenem 50 ml @ 17 mls/hr Q8HR IV 09/13/24 14:00 09/16/24 02:59 09/15/24 06:09 17 MLS/HR Vancomycin HCl 0 ml @ 0 mls/hr UD IV 09/14/24 14:15 Vancomycin HCl 200 ml @ 200 mls/hr Q12H IV 09/14/24 15:00 09/15/24 03:14 200 MLS/HR Insulin Glargine 15 units HS SC 09/15/24 22:00 Pantoprazole Sodium 40 mg DAILY IV 09/15/24 08:15 09/15/24 09:28 40 MG objective The patient is well-nourished and well-developed with no distress. MENTAL STATUS: Subjective CRANIAL NERVES: Pupils are round and reactive, with a right side slightly bigger when the pupils are dilated. There are spontaneous blinking and possible conjugated eye movement. No signs of facial weakness. There are gagging or coughing reflexes SENSATION: Responses to pain stimuli. MOTOR: Normal tone in the upper and lower extremity. Normal muscle bulk. No fasciculations. Muscle power in the arms: 2-3/5, stronger in the left arm. Muscle power in the legs: 3- 4/5, maybe right-sided weaker REFLEXES: Deep tendon reflexes are symmetrical. No pathological reflexes. CEREBELLAR/COORDINATION: Deferred GAIT/STATION: deferred laboratory and microbiology Laboratory Tests 09/15/24 03:00 Test 09/15/24 03:00 Range/Units Serum Glucose 231 H 74-106 mg/dL Problem List Left hemisphere stroke Right cerebellum hemispheres stroke Altered mental status Metabolic encephalopathy Hypoxic encephalopathy Toxic encephalopathy Uncontrolled diabetes Acidosis Sepsis, septic shock Urinary tract infection Pneumonia Kidney failure Respiratory failure ICU myopathy Intermittently anisocoria, uncertain clinical significance Assessment/Plan Monitoring Supportive treatment ESTHER ICU care Stabilize vitals/pressor drip Respiratory support/vent management Oxygen Antibiotics Lipitor 80 mg daily Plavix 75 mg daily Aspirin 81 mg daily DVT prophylaxis/heparin subQ GI prophylaxis/Protonix More recommendation per clinical course This medical document was created using an electronic medical record system with [employer] system. Although this document has been carefully reviewed, there may still be some phonetic and typographical errors. These areas are purely typographical due to imperfections of the software programs, and do not reflect any compromise in the patient's medical care Prognosis poor Dietary Evaluation Review Recommendations by RD: Protein Supplementation, PPN/TPN Comments: Pt is at high risk of malnutrition due to prolonged vomiting leading to inadequate nutrient intake and hypermetabolic state secondary to acute inflammation. Recommendation: 1) Start PN/TPN per pharmacy 2) If GI is accessible, consider TF Pivot 1.5Cal @ 60ml/hr along with Pro-stat 1 pk TID. Start @ 10ml/hr, increase 10ml/hr Q4H until goal rate is reached. Advance TF rate slowly and gradually to prevent Refeeding syndrome. Water Flush 50ml Q4H if allowed. TF Provision --- TF at goal volume to provide 1440 ml total volume, 2160 kcal (+300 kcal via Pro-stat = 2460 kcal), 135 gm pro (+45 gm via ProStat = 180 gm), 1093 ml H20 (meets 100% est. kcal needs, 100% est. protein needs) 3) Monitor Potassium, Phosphate, Magnesium for Refeeding syndrome 4) Des 1 pk daily For DTI 5) Continue current plan of care Expected Outcomes/Goals: Blood glucose to improve Nutrient intake to meet at least 75% estimated needs FU 2-3 days Food and Nutrition Intake (Mod: <75% est energy req 7days Protein Calorie Malnutrition: Severe Plan discussed with: Other CHRISTOPHE CHÁVEZ MD September 15, 2024 11:06
[2024-09-15 12:40] LABS: Base Excess -1.6 mmol/L (-2.0-3.0)
[2024-09-15] MEDS: FREE WATER GT SCH (17:02)
--- NOTE | 2024-09-15 19:08 | DVHPNRES ---
Progress Note Date Seen: September 15, 2024 Resident Creating Document: NATALIE ROSALES [employer] Has the PT tested + for MRSA If YES, has PT been informed?: No Medical Necessity Reason Pt with a Central, PICC or Fol: Yes The following are medically ne: Central Line, Chavez Catheter Reason for chavez catheter: Strict I&O Subjective Review of Systems Patient seen and examined at the bedside. Patient is on mechanical ventilation through tracheostomy tube. Patient Is sedated, review of systems could not obtain Patient reports: No new complaints Changes from previous H/P or p: No Changes Objective vital signs Vital Sign Date Time Temp Pulse Resp B/P (MAP) Pulse Ox O2 Delivery O2 Flow Rate FiO2 09/15/24 18:00 84 8 150/73 (98) 100 09/15/24 18:00 Trach Collar 8 30 30 09/15/24 16:00 98.5 98.5 Total Intake and Output 09/14/24 09/14/24 09/15/24 15:00 23:00 07:00 Intake Total 685.76 ml 1087.52 ml 1500.105 ml Output Total 1400 ml 1275 ml Balance 685.76 ml -312.48 ml 225.105 ml medications Current Medications Medications Dose Ordered Sig/Nikki Route Start Time Stop Time Status Last Admin Dose Admin Diagnostic Test (Pha) 1 strip ACHS 08/19/24 17:00 Cancel Norepinephrine Bitartrate 250 ml @ 3.75 mls/hr Q24H IV 08/19/24 17:15 Cancel Midazolam HCl 50 ml @ 1 mls/hr Q24H IV 08/19/24 17:15 09/09/24 19:10 1 MLS/HR Ipratropium [place] 0.5 mg Q6HR NEB 08/19/24 18:00 09/15/24 18:31 0.5 MG Albuterol 2.5 mg Q6HR NEB 08/19/24 18:00 09/15/24 18:34 2.5 MG Acetaminophen 650 mg Q6HP PRN [place] 08/21/24 01:45 08/23/24 03:36 650 MG Epoetin Aquil[place]-epbx 10,000 unit TUTHSA@2100 SC 08/26/24 21:00 09/13/24 00:02 10,000 UNIT Albumin Human 100 ml @ 100 mls/hr PRN PRN IV 08/26/24 06:45 08/27/24 07:45 100 MLS/HR Norepinephrine Bitartrate 32 mg/ Sodium Chloride 250 ml @ 0.469 mls/ hr Q24H IV 08/27/24 13:00 09/06/24 01:01 0.469 MLS/HR Heparin Sodium (Porcine) 5,000 units Q12HR SC 08/31/24 22:00 09/15/24 09:37 5,000 UNITS Sodium Chloride 10 ml QSHIFT@10,22 IV 08/31/24 22:00 09/15/24 09:28 10 ML Artificial Tears 2 drop Q4HR PRN EACHEYE 09/02/24 10:45 09/14/24 21:59 2 DROP Dextrose 50 ml UD PRN IV 09/03/24 21:00 Hydralazine HCl 50 mg Q8HR PRN PO 09/05/24 09:15 Hydralazine HCl 20 mg Q6HP PRN IV 09/08/24 11:45 09/13/24 23:04 20 MG Enteral Nutritional Formula 1,000 ml 60ML/HR GT 09/08/24 22:15 09/14/24 17:25 1,000 ML Insulin Human Regular AC SC 09/09/24 07:00 09/15/24 17:19 9 UNITS Diagnostic Test (Pha) 1 strip ACHS 09/09/24 07:00 09/15/24 17:02 1 STRIP Propofol 100 ml @ 3.672 mls/ hr Q24H IV 09/10/24 22:30 09/14/24 07:47 18.36 MLS/HR Aspirin 81 mg DAILY PO 09/12/24 10:00 09/15/24 09:28 81 MG Clopidogrel Bisulfate 75 mg DAILY PO 09/12/24 10:00 09/15/24 09:28 75 MG Atorvastatin Calcium 80 mg HS PO 09/12/24 22:00 09/14/24 21:53 80 MG Fentanyl Citrate 250 ml @ 2.5 mls/hr Q24H IV 09/13/24 03:15 09/14/24 08:01 2.5 MLS/HR Meropenem 50 ml @ 17 mls/hr Q8HR IV 09/13/24 14:00 09/16/24 02:59 09/15/24 13:27 17 MLS/HR Vancomycin HCl 0 ml @ 0 mls/hr UD IV 09/14/24 14:15 Vancomycin HCl 200 ml @ 200 mls/hr Q12H IV 09/14/24 15:00 09/15/24 14:23 200 MLS/HR Insulin Glargine 15 units HS SC 09/15/24 22:00 Pantoprazole Sodium 40 mg DAILY IV 09/15/24 08:15 09/15/24 09:28 40 MG Purified Water 200 ml TID GT 09/15/24 17:00 09/15/24 17:02 200 ML Examination General: RASS -2, afebrile, mucosae are moist Cardiovascular: Normal S1 and S2. No murmurs, gallops or rubs Respiratory: Mechanically assisted ventilation through tracheostomy tube, equal bilateral airway entree. Clear lung sounds on auscultation Abdomen: Soft, nontender, no organomegaly, normal bowel sounds MSK/skin: Mobilization of limbs cannot be evaluated. Skin is dry and warm. Neurological: Orientation cannot be assessed. Pupils are isocoric and reactive laboratory and microbiology Laboratory Tests 09/15/24 03:00 Test 09/15/24 03:00 Range/Units Serum Glucose 231 H 74-106 mg/dL Microbiology Date/Time Source Procedure Growth Status 09/10/24 10:47 Catheter Tip Other Aerobic Culture - Final Complete 09/04/24 10:19 Blood Blood Culture - Final NO GROWTH AFTER 5 DAYS OF INCUBATION. Complete 08/31/24 15:08 Sputum Gram Stain - Final Complete 08/31/24 15:08 Respiratory Culture - Final Presumptive Mary albicans Complete 08/31/24 14:00 Urine - [place] Urine Culture - Final Complete Labs and/or images reviewed: Labs reviewed by me, Image(s) reviewed by me Problem List/Assessment/Plan Problem List/Assessment/Plan Acute metabolic encephalopathy, likely due to sepsis/uremic/stroke Acute hypoxic respiratory failure, likely due to CPAP/aspiration pneumonia/ARDS Recurrent ischemic stroke Possible acute on chronic systolic heart failure NSTEMI, likely type 2, due to above Sepsis, likely due to pneumonia/infected sacral wound Uncontrolled diabetes type 2 with hyperglycemia KATE on possible CKD, improving Obesity, grade 2 [place] grade 3 * EKGs shows, sinus rhythm with no significant ST or T-wave changes * TTE shows, moderate LV dysfunction (LVEF less than 40%), very limited study, only apical images interpreted, RV not well seen * Troponin I is raised at 235 Plan/Recommendation (Case discussed with Dr. Carlos) * Continue aspirin and Plavix * Keep K above 4, and Mag above 2 * Considering patient's current status, comorbidities and having tracheostomy, he is not a good candidate for ESTHER * Thoracic echo with bubble studies * Rest of plan, per primary team Thank you for allowing us to participate in this patient's care. Please call if you have any questions or concerns. Plan discussed with: Other (RN) Dietary Evaluation Review Recommendations by RD: Protein Supplementation, PPN/TPN Comments: Pt is at high risk of malnutrition due to prolonged vomiting leading to inadequate nutrient intake and hypermetabolic state secondary to acute inflammation. Recommendation: 1) Start PN/TPN per pharmacy 2) If GI is accessible, consider TF Pivot 1.5Cal @ 60ml/hr along with Pro-stat 1 pk TID. Start @ 10ml/hr, increase 10ml/hr Q4H until goal rate is reached. Advance TF rate slowly and gradually to prevent Refeeding syndrome. Water Flush 50ml Q4H if allowed. TF Provision --- TF at goal volume to provide 1440 ml total volume, 2160 kcal (+300 kcal via Pro-stat = 2460 kcal), 135 gm pro (+45 gm via ProStat = 180 gm), 1093 ml H20 (meets 100% est. kcal needs, 100% est. protein needs) 3) Monitor Potassium, Phosphate, Magnesium for Refeeding syndrome 4) Des 1 pk daily For DTI 5) Continue current plan of care Expected Outcomes/Goals: Blood glucose to improve Nutrient intake to meet at least 75% estimated needs FU 2-3 days Food and Nutrition Intake (Mod: <75% est energy req 7days Protein Calorie Malnutrition: Severe Visit Coding Cardiology RES Date of Service: September 15, 2024 Billing Provider: DRU CARLOS MD Cardiology Common Codes: 44299-[id number](High NATALIE ROSALES RESDIENT September 15, 2024 19:08
--- NOTE | 2024-09-15 21:14 | DVHPN2 ---
Progress Note - Dictate Date Seen: September 15, 2024 Has the PT tested + for MRSA If YES, has PT been informed?: No Medical Necessity Reason Pt with a Central, PICC or Fol: Yes The following are medically ne: Central Line, Chavez Catheter Reason for chavez catheter: Strict I&O Subjective Patient is more awake and responsive, s/p tracheostomy on a ventilator He failed CPAP trial s/p tracheostomy Patient is getting enteral tube feedings through the Dobbhoff tube into the small bowel at 60 mL/hour NG-tube discontinued No recorded bowel movement, flexi Seal in place with minimal drainage, patient has a sacral decubitus vital signs Vital Sign Date Time Temp Pulse Resp B/P (MAP) Pulse Ox O2 Delivery O2 Flow Rate FiO2 09/15/24 20:30 79 27 135/71 (92) 100 09/15/24 20:00 98.8 98.8 09/15/24 20:00 Trach Collar 8 30 30 Total Intake and Output 09/14/24 09/14/24 09/15/24 15:00 23:00 07:00 Intake Total 685.76 ml 1087.52 ml 1500.105 ml Output Total 1400 ml 1275 ml Balance 685.76 ml -312.48 ml 225.105 ml medications Current Medications Medications Dose Ordered Sig/Nikki Route Start Time Stop Time Status Last Admin Dose Admin Diagnostic Test (Pha) 1 strip ACHS 08/19/24 17:00 Cancel Norepinephrine Bitartrate 250 ml @ 3.75 mls/hr Q24H IV 08/19/24 17:15 Cancel Midazolam HCl 50 ml @ 1 mls/hr Q24H IV 08/19/24 17:15 09/09/24 19:10 1 MLS/HR Ipratropium [place] 0.5 mg Q6HR NEB 08/19/24 18:00 09/15/24 18:31 0.5 MG Albuterol 2.5 mg Q6HR NEB 08/19/24 18:00 09/15/24 18:34 2.5 MG Acetaminophen 650 mg Q6HP PRN [place] 08/21/24 01:45 08/23/24 03:36 650 MG Epoetin Aquil[place]-epbx 10,000 unit TUTHSA@2100 SC 08/26/24 21:00 09/13/24 00:02 10,000 UNIT Albumin Human 100 ml @ 100 mls/hr PRN PRN IV 08/26/24 06:45 08/27/24 07:45 100 MLS/HR Norepinephrine Bitartrate 32 mg/ Sodium Chloride 250 ml @ 0.469 mls/ hr Q24H IV 08/27/24 13:00 09/06/24 01:01 0.469 MLS/HR Heparin Sodium (Porcine) 5,000 units Q12HR SC 08/31/24 22:00 09/15/24 09:37 5,000 UNITS Sodium Chloride 10 ml QSHIFT@10,22 IV 08/31/24 22:00 09/15/24 09:28 10 ML Artificial Tears 2 drop Q4HR PRN EACHEYE 09/02/24 10:45 09/14/24 21:59 2 DROP Dextrose 50 ml UD PRN IV 09/03/24 21:00 Hydralazine HCl 50 mg Q8HR PRN PO 09/05/24 09:15 Hydralazine HCl 20 mg Q6HP PRN IV 09/08/24 11:45 09/13/24 23:04 20 MG Enteral Nutritional Formula 1,000 ml 60ML/HR GT 09/08/24 22:15 09/14/24 17:25 1,000 ML Insulin Human Regular AC SC 09/09/24 07:00 09/15/24 17:19 9 UNITS Diagnostic Test (Pha) 1 strip ACHS 09/09/24 07:00 09/15/24 17:02 1 STRIP Propofol 100 ml @ 3.672 mls/ hr Q24H IV 09/10/24 22:30 09/14/24 07:47 18.36 MLS/HR Aspirin 81 mg DAILY PO 09/12/24 10:00 09/15/24 09:28 81 MG Clopidogrel Bisulfate 75 mg DAILY PO 09/12/24 10:00 09/15/24 09:28 75 MG Atorvastatin Calcium 80 mg HS PO 09/12/24 22:00 09/14/24 21:53 80 MG Fentanyl Citrate 250 ml @ 2.5 mls/hr Q24H IV 09/13/24 03:15 09/14/24 08:01 2.5 MLS/HR Meropenem 50 ml @ 17 mls/hr Q8HR IV 09/13/24 14:00 09/16/24 02:59 09/15/24 13:27 17 MLS/HR Vancomycin HCl 0 ml @ 0 mls/hr UD IV 09/14/24 14:15 Vancomycin HCl 200 ml @ 200 mls/hr Q12H IV 09/14/24 15:00 09/15/24 14:23 200 MLS/HR Insulin Glargine 15 units HS SC 09/15/24 22:00 Pantoprazole Sodium 40 mg DAILY IV 09/15/24 08:15 09/15/24 09:28 40 MG Purified Water 200 ml TID GT 09/15/24 17:00 09/15/24 17:02 200 ML objective General: Mechanically ventilated, sedated HEENT: Head is normocephalic and atraumatic. Pupils are equal, round, and reactive to light Neck: Supple with no cervical lymphadenopathy. Heart: Regular rate without murmur, rub, or gallop. Lungs: Bilateral crackles, most prominent on bases Abdomen: No external sign of injury. Bowel sounds present Abdomen is soft, nontender. Extremities: faint peripheral pulses. There is no clubbing, no cyanosis, and no edema. Skin: No rash. laboratory and microbiology Laboratory Tests 09/15/24 03:00 Test 09/15/24 03:00 Range/Units Serum Glucose 231 H 74-106 mg/dL Problems(with codes): (1) CVA (cerebral vascular accident) (2) Gastroparesis (3) Leukocytosis (4) Anemia (5) Metabolic alkalosis (6) Diabetes type 2, uncontrolled Prognosis Plan Continue trial at CPAP and weaning off the ventilator In the meantime there was a plan for possible transfer to LTAC I will follow this patient with you as needed Continue IV antibiotics Pulmonary and respiratory care ongoing Dietary Evaluation Review Recommendations by RD: Protein Supplementation, PPN/TPN Comments: Pt is at high risk of malnutrition due to prolonged vomiting leading to inadequate nutrient intake and hypermetabolic state secondary to acute inflammation. Recommendation: 1) Start PN/TPN per pharmacy 2) If GI is accessible, consider TF Pivot 1.5Cal @ 60ml/hr along with Pro-stat 1 pk TID. Start @ 10ml/hr, increase 10ml/hr Q4H until goal rate is reached. Advance TF rate slowly and gradually to prevent Refeeding syndrome. Water Flush 50ml Q4H if allowed. TF Provision --- TF at goal volume to provide 1440 ml total volume, 2160 kcal (+300 kcal via Pro-stat = 2460 kcal), 135 gm pro (+45 gm via ProStat = 180 gm), 1093 ml H20 (meets 100% est. kcal needs, 100% est. protein needs) 3) Monitor Potassium, Phosphate, Magnesium for Refeeding syndrome 4) Des 1 pk daily For DTI 5) Continue current plan of care Expected Outcomes/Goals: Blood glucose to improve Nutrient intake to meet at least 75% estimated needs FU 2-3 days Food and Nutrition Intake (Mod: <75% est energy req 7days Protein Calorie Malnutrition: Severe Plan discussed with: Patient, Other (ICU nurse) ALDAIR YOUSSEF MD September 15, 2024 21:14
--- NOTE | 2024-09-15 21:24 | DVHPNRES ---
Progress Note Date Seen: September 15, 2024 Resident Creating Document: ELIO SANTOS RESIDENT Has the PT tested + for MRSA If YES, has PT been informed?: No Medical Necessity Reason Pt with a Central, PICC or Fol: Yes The following are medically ne: Central Line, Chavez Catheter Reason for chavez catheter: Strict I&O Subjective Review of Systems Patient seen and examined on the bedside On mechanical ventilation and more alert and arousable On pracedex drip Patient is on trach tube and ventilation through the tube. MRI of head demonstrated Acute infarction within the right cerebellar hemisphere measuring 3.2 x 0.7 cm. Left frontoparietal increased T2 signal with mild diffusion restriction signal. This could represent subacute infarct or underlying mass/lesion. Neurology evaluated the patient and recommended ESTHER for possible identification of the source of the emboli for ischemic stroke. EEG demonstrated borderline normal EEG and no focal lateralized or epileptiform features noted. cardiology evaluated the patient and mentioned not a good candidate for ESTHER due to his recent tracheostomy. Trach collar trial tomorrow Objective vital signs Vital Sign Date Time Temp Pulse Resp B/P (MAP) Pulse Ox O2 Delivery O2 Flow Rate FiO2 09/15/24 20:30 113 28 135/71 100 30 09/15/24 20:00 98.8 98.8 09/15/24 20:00 Trach Collar 8 Total Intake and Output 09/14/24 09/14/24 09/15/24 15:00 23:00 07:00 Intake Total 685.76 ml 1087.52 ml 1500.105 ml Output Total 1400 ml 1275 ml Balance 685.76 ml -312.48 ml 225.105 ml medications Current Medications Medications Dose Ordered Sig/Nikki Route Start Time Stop Time Status Last Admin Dose Admin Diagnostic Test (Pha) 1 strip ACHS 08/19/24 17:00 Cancel Norepinephrine Bitartrate 250 ml @ 3.75 mls/hr Q24H IV 08/19/24 17:15 Cancel Midazolam HCl 50 ml @ 1 mls/hr Q24H IV 08/19/24 17:15 09/09/24 19:10 1 MLS/HR Ipratropium [place] 0.5 mg Q6HR NEB 08/19/24 18:00 09/15/24 18:31 0.5 MG Albuterol 2.5 mg Q6HR NEB 08/19/24 18:00 09/15/24 18:34 2.5 MG Acetaminophen 650 mg Q6HP PRN [place] 08/21/24 01:45 08/23/24 03:36 650 MG Epoetin Aquilino-epbx 10,000 unit TUTHSA@2100 [place] 08/26/24 21:00 09/13/24 00:02 10,000 UNIT Albumin Human 100 ml @ 100 mls/hr PRN PRN IV 08/26/24 06:45 08/27/24 07:45 100 MLS/HR Norepinephrine Bitartrate 32 mg/ Sodium Chloride 250 ml @ 0.469 mls/ hr Q24H IV 08/27/24 13:00 09/06/24 01:01 0.469 MLS/HR Heparin Sodium (Porcine) 5,000 units Q12HR SC 08/31/24 22:00 09/15/24 21:10 5,000 UNITS Sodium Chloride 10 ml QSHIFT@10,22 IV 08/31/24 22:00 09/15/24 09:28 10 ML Artificial Tears 2 drop Q4HR PRN EACHEYE 09/02/24 10:45 09/14/24 21:59 2 DROP Dextrose 50 ml UD PRN IV 09/03/24 21:00 Hydralazine HCl 50 mg Q8HR PRN PO 09/05/24 09:15 Hydralazine HCl 20 mg Q6HP PRN IV 09/08/24 11:45 09/13/24 23:04 20 MG Enteral Nutritional Formula 1,000 ml 60ML/HR GT 09/08/24 22:15 09/14/24 17:25 1,000 ML Insulin Human Regular AC SC 09/09/24 07:00 09/15/24 17:19 9 UNITS Diagnostic Test (Pha) 1 strip ACHS 09/09/24 07:00 09/15/24 17:02 1 STRIP Propofol 100 ml @ 3.672 mls/ hr Q24H IV 09/10/24 22:30 09/14/24 07:47 18.36 MLS/HR Aspirin 81 mg DAILY PO 09/12/24 10:00 09/15/24 09:28 81 MG Clopidogrel Bisulfate 75 mg DAILY PO 09/12/24 10:00 09/15/24 09:28 75 MG Atorvastatin Calcium 80 mg HS PO 09/12/24 22:00 09/15/24 21:08 80 MG Fentanyl Citrate 250 ml @ 2.5 mls/hr Q24H IV 09/13/24 03:15 09/14/24 08:01 2.5 MLS/HR Meropenem 50 ml @ 17 mls/hr Q8HR IV 09/13/24 14:00 09/16/24 02:59 09/15/24 21:06 17 MLS/HR Vancomycin HCl 0 ml @ 0 mls/hr UD IV 09/14/24 14:15 Vancomycin HCl 200 ml @ 200 mls/hr Q12H IV 09/14/24 15:00 09/15/24 14:23 200 MLS/HR Insulin Glargine 15 units HS SC 09/15/24 22:00 Pantoprazole Sodium 40 mg DAILY IV 09/15/24 08:15 09/15/24 09:28 40 MG Purified Water 200 ml TID GT 09/15/24 17:00 09/15/24 17:02 200 ML Examination Examination: Constitutional: Patient sedated and on mechanical ventilation, RASS 0 Gen - mild conjuctival pallor, no icterus, no cyanosis, no clubbing, no LAD, 1+ edema in the feet . Skin - Patients skin is warm and dry. HEENT - normocephalic, atraumatic, moist mucous membranes. Neck - full ROM, no LAD, no jvd Pulmonary - B/L air entry present, diffuse rales, no wheezing, no stridor. cardiovascular - regular S1,S2 heard, no added sounds, no murmurs heard. GI - soft abdomen. no hepatospleenomegaly. bowel sounds hypoactive sacrum- ulcer seen , stage 2 ulcer with bloody oozing in gluteal fold Neurological - on mechanical ventilation, s/p tracheostomy laboratory and microbiology Laboratory Tests 09/15/24 03:00 Test 09/15/24 03:00 Range/Units Serum Glucose 231 H 74-106 mg/dL Microbiology Date/Time Source Procedure Growth Status 09/10/24 10:47 Catheter Tip Other Aerobic Culture - Final Complete 09/04/24 10:19 Blood Blood Culture - Final NO GROWTH AFTER 5 DAYS OF INCUBATION. Complete 08/31/24 15:08 Sputum Gram Stain - Final Complete 08/31/24 15:08 Respiratory Culture - Final Presumptive Mary albicans Complete 08/31/24 14:00 Urine - [place] Urine Culture - Final Complete Labs and/or images reviewed: Labs reviewed by me, Image(s) reviewed by me Problem List/Assessment/Plan Problem List/Assessment/Plan Assessment and plan: Neurology Acute ischemic stroke in the rt cerebellar hemisphere and Left frontoparietal Acute metabolic encephalopathy likely due to sepsis/HHS - MRI demonstrated Acute infarction within the right cerebellar hemisphere measuring 3.2 x 0.7 cm. Left frontoparietal increased T2 signal with mild diffusion restriction signal. This could represent subacute infarct or underlying mass/lesion. - on mechanical ventilation - Patient underwent tracheostomy yesterday. - Patient passed the window period of tPA therapy for ischemic stroke and also he has a recent history of GI bleeding in 1 week. - Consulted neurology - Continue aspirin 81 mg daily, clopidogrel 75 mg daily and atorvastatin 80 mg at HS - Neurology evaluated the patient and recommended ESTHER for possible identification of the source of the emboli for ischemic stroke. EEG demonstrated borderline normal EEG and no focal lateralized or epileptiform features noted. cardiology evaluated the patient and recommended Considering patient's current status, comorbidities and having tracheostomy, he is not a good candidate for ESTHER, we will repeat transthoracic echo. Respiratory Acute hypoxic respiratory failure Probable aspiration pneumonia ARDS - on mechanical ventilation with FiO2 30%, peep 5 - chest x-ray shows bilateral patchy opacities - ABG compensated - duonebs q6hr - IV antibiotics meropenem, linezolid, micafungin - sputum culture showed growth of yeast Cardiovascular Shock due to sepsis possibly from aspiration Acute on chronic heart failure with reduced ejection fraction - echo showed LVEF< 40% - off norepinephrine Infectious disease Septic shock likely due to aspiration pneumonia Infected Sacral ulcer, unstageable pressure ulcer - on IV antibiotics - culture from sacral ulcer growing enterococcus - blood culture showed no growth - on vanc Nephrology Metabolic alkalosis likely from intractable vomiting, resolved KATE on CKD likely due to be VMN from dehydration - Last dialysis on 09/07/24 and hold off dialysis per nephrology. - urine output improved - IV NS @ 75 ml/ hr. - Epotein alpha-epbx per protocol GI ?Gastroparesis ?Upper GI bleed - KUB shows nonobstructive bowel gas pattern - Protonix b.i.d. - 4 units of PRBC given, H&H stable - GI on board - CT with PO contrast showed no obstruction. - FOBT positive - Dobbhoff tube with enteral feeding Glucerna Endocrinology Uncontrolled diabetes mellitus with a hyperglycemia Morbid obesity - on insulin sliding scale - lantus 25 unit HS Skin - stage III big ulcer in the sacral area covered with eschar - Surgery mentioned patient does not need debridement now because no fluctuation or discharge. Diet: dobhoff tube DVT prophylaxis: heparin Left upper arm PICC placed on 08/31 Chavez's catheter placed on 09/09/24 Goals of care discussed with the patient's sister Sheree for over 27 mins. Full code Critical care time spent 83 minutes includes trach collar trial Plan discussed with Dr. Flowers Plan discussed with: Other (Sister, RN) My Orders My Orders Orders - ELIO SANTOS RESIDENT Procedure Category Date Status Time Insulin Lantus PHA 09/15/24 In Process (Glargine) (Lantus) 22:00 Pantoprazole PHA 09/15/24 In Process (Protonix) 08:15 Cpap Trial For Am ORDERS 09/15/24 Transmitted 09:00 Abg W/ Co-Ox RT 09/15/24 Logged 12:20 Trach Collar Trial RT 09/15/24 Transmitted 16:38 Free Water PHA 09/15/24 In Process 17:00 Dietary Evaluation Review Recommendations by RD: Protein Supplementation, PPN/TPN Comments: Pt is at high risk of malnutrition due to prolonged vomiting leading to inadequate nutrient intake and hypermetabolic state secondary to acute inflammation. Recommendation: 1) Start PN/TPN per pharmacy 2) If GI is accessible, consider TF Pivot 1.5Cal @ 60ml/hr along with Pro-stat 1 pk TID. Start @ 10ml/hr, increase 10ml/hr Q4H until goal rate is reached. Advance TF rate slowly and gradually to prevent Refeeding syndrome. Water Flush 50ml Q4H if allowed. TF Provision --- TF at goal volume to provide 1440 ml total volume, 2160 kcal (+300 kcal via Pro-stat = 2460 kcal), 135 gm pro (+45 gm via ProStat = 180 gm), 1093 ml H20 (meets 100% est. kcal needs, 100% est. protein needs) 3) Monitor Potassium, Phosphate, Magnesium for Refeeding syndrome 4) Des 1 pk daily For DTI 5) Continue current plan of care Expected Outcomes/Goals: Blood glucose to improve Nutrient intake to meet at least 75% estimated needs FU 2-3 days Food and Nutrition Intake (Mod: <75% est energy req 7days Protein Calorie Malnutrition: Severe Date of Service: September 15, 2024 Billing Provider: ARMANDO FLOWERS MD Common Visit Codes: 13261-UGOYDQCS CARE 30-74 MIN, 18289-[id number] CARE-EACH +30MIN ELIO SANTOS RESIDENT September 15, 2024 21:24 ARMANDO FLOWERS MD September 16, 2024 13:58
[2024-09-15] MEDS: INSULIN LANTUS (GLARGINE) 1 /0.01ml (100units/ml) SC SCH (21:28)
[2024-09-16] VITALS (68 sets, daily range): BP systolic 123–178; BP diastolic 63–95; PULSE 68–110; RESP 8–26; TEMP 97.8–99.5; O2SAT 94–100
[2024-09-16 04:28] LABS: Eosinophils # (auto) 0.4 10 ^3/uL (0-0.8)
[2024-09-16 04:31] LABS: Basophils # (auto) 0.2 10 ^3/uL (0-0.2); Basophils % (auto) 1.4 % (0.0-2.0); Eosinophils % (auto) 2.3 % (0.0-7.0); Hematocrit 31.7 % (41.0-53.0); Hemoglobin 10.4 g/dL (13.5-17.5); Lymphocytes # (auto) 1.9 10 ^3/uL (0.4-5.4); Lymphocytes % (auto) 10.6 % (10.0-50.0); Mean Corpuscular Hemoglobin 29.2 pg (28.0-32.0); Mean Corpuscular Hgb Conc. 32.9 g/dL (32.0-36.0); Mean Corpuscular Volume 88.7 fL (80.0-100.0); Monocytes # (auto) 0.8 10 ^3/uL (0-1.3); Monocytes % (auto) 4.8 % (0.0-12.0); Neutrophils # (auto) 14.3 10 ^3/uL (1.6-8.6); Neutrophils % (auto) 80.9 % (37.0-80.0); Platelet Count (auto) 494 10^3/uL (140-450); Red Blood Cells 3.57 10^6/uL (4.5-5.90); Red Cell Distribution Width 15.4 % (11.8-14.3); White Blood Cell 17.7 10^3/uL (4.4-10.8)
[2024-09-16 04:36] LABS: Potassium 3.5 mmol/L (3.5-5.1)
[2024-09-16 04:37] LABS: Anion Gap 12 (5-15); Carbon Dioxide 23 mmol/L (20-31)
[2024-09-16 04:42] LABS: BUN/Creatinine Ratio 25.7 (10.0-20.0)
[2024-09-16 04:44] LABS: Chloride 111 mmol/L (98-107); Sodium 146 mmol/L (136-145)
[2024-09-16 04:45] LABS: Blood Urea Nitrogen 37 mg/dL (9-23); Calcium 8.7 mg/dL (8.7-10.4); Glucose 337 mg/dL (74-106)
--- NOTE | 2024-09-16 07:52 | DVHSR ---
APPROVED REPORT EXAM: Two-dimensional and M-mode echocardiogram with Doppler, color Doppler and Opt[employer] and Bubble st udy Blood Pressure: 132/79 mmHg INDICATION CVA/TIA: RISK FACTORS Height: 6'2", Weight: 272 DIMENSIONS LVDd4.7 (3.8-5.7cm)LA (2D)4.0 (1.9-4.0cm)Aortic Root3.1 (2.0-3.7cm) LVDs2.9 (2.5-4.0cm)LA (MM) (1.9-4.0cm)Aortic Cusp Exc (1.5-2.0cm) EF (%) 67.0 (55-70%)Rt. Atrium4.1 (1.9-4.0cm)Asc. Aorta cm IVSd0.9 (0.7-1.1cm)RV (D)3.7 (1.8-2.4cm) PWd0.7 (0.7-1.1cm) Mitral Valve MitralMitral Stenosis E wave0.84m/sMV Mean GR.mmHg A wave0.69m/sMV Peak GR.mmHg E/A ratio1.22D MVAcm2 DECEL [id number] 1/2 Timems Aortic Valve Aortic ValveAortic Stenosis V11.45m/Queenie Mean GR.4mmHg V21.57m/Queenie Peak GR.10mmHg LVOT Diameter2.0 (1.8-2.4cm)Doppler AVA2.90cm2 Other Information Quality : Technically LimitedRhythm : Technically limited study due to body habitus and on vent. Conclusion Sinus rhythm. Right atrial and right ventricular enlargement. Left atrial enlargement. Hypertrophy of papillary m uscles. Valves appear to be structurally normal. EF of 60% with normal RV function. Contrast ECHO confirms LV EF. Mild TR. No pericardial effusion masses or vegetations.
[2024-09-16] MEDS: INSULIN LANTUS (GLARGINE) 1 /0.01ml (100units/ml) SC SCH (09:59)
[2024-09-16] MEDS: FREE WATER GT SCH ×2 (10:00→17:15)
--- NOTE | 2024-09-16 10:39 | DVHPN2 ---
Progress Note - Dictate Date Seen: September 16, 2024 Has the PT tested + for MRSA If YES, has PT been informed?: No Medical Necessity Reason Pt with a Central, PICC or Fol: Yes The following are medically ne: Central Line, Chavez Catheter Reason for chavez catheter: Strict I&O Subjective Mr. Moore is a 44 years old right-handed gentleman with a history of diabetes, kidney failure once on hemodialysis, obesity, the patient was brought to the hospital on 08/19/2024 by the family for altered mental status. I have seen and examined the patient, I have discussed with his nurse, in the room with him, over he keeps getting better, but I noticed the right upper extremity is weaker today Blood culture, 08/31/2024: Staphylococcus epidermidis, Staphylococcus hominis Stool occult blood, 09/07/2024: Positive UDS, 08/19/2024: Negative Plasma alcohol, 08/19/2024: Normal Urinalysis, 08/19/2024: WBC: 16, urine leukocyte esterase: Trace ABG 08/19/2024: Respiratory c acidosis WBC/HB/PLT/MCV, 08/19/2024: 37.8/14.8/159/86.1 08/25/2024: 34.8/7.7/180/89.5, 09/11/2024:17.2/10/635/86.8 PT/INR/PTT, 09/10/2024: 12.8/1.23/24.9 Na, 08/19/24: 114, 08/20/24: 123, 08/26/24: 134 BUN/CR, 08/19/2024: 112/8.94, 09/09/2024: 82/2.79, 09/11/2024: 81/2.42 HCO3, 08/19/2024: >40, 17, 08/20/2024: 37 Anion gap, 08/19/2024: 22.9999 Beta hydroxybutyric acid, 08/19/2024: 0.498 Lactic acid, 08/19/2024: 5.7, 4.6 HGB A1c, 08/19/2024: 11.7 Liver function tests, 09/07/2024: Unremarkable TG/HDL/LDL/HDL, 09/11/2024: 351/200/134/21 EEG, 09/13/2024: Borderline Carotid Doppler, 09/11/2024: No evidence of hemodynamically significant stenosis in the carotid arteries CT head, 09/11/2024: 1. Findings consistent with acute or subacute left MCA territory infarct. 2. No evidence of acute intracranial hemorrhage. 3. Partial opacification of the mastoid air cells bilaterally, likely effusions. Correlate clinically to exclude mastoiditis. CT head, 09/11/2024: Acute infarction within the right cerebellar hemisphere measuring 3.2 x 0.7 cm. Less pronounced diffusion restriction signal within the left frontoparietal lobe vital signs Vital Sign Date Time Temp Pulse Resp B/P (MAP) Pulse Ox O2 Delivery O2 Flow Rate FiO2 09/16/24 10:00 19 100 Trach Collar 8 30 30 09/16/24 10:00 82 153/82 (105) 09/16/24 08:00 98.7 98.7 Total Intake and Output 09/15/24 09/15/24 09/16/24 15:00 23:00 07:00 Intake Total 145.6 ml 1370.9 ml 1498.6 ml Output Total 1250 ml 1300 ml Balance 145.6 ml 120.9 ml 198.6 ml medications Current Medications Medications Dose Ordered Sig/Nikki Route Start Time Stop Time Status Last Admin Dose Admin Diagnostic Test (Pha) 1 strip ACHS 08/19/24 17:00 Cancel Norepinephrine Bitartrate 250 ml @ 3.75 mls/hr Q24H IV 08/19/24 17:15 Cancel Midazolam HCl 50 ml @ 1 mls/hr Q24H IV 08/19/24 17:15 09/09/24 19:10 1 MLS/HR Ipratropium [place] 0.5 mg Q6HR NEB 08/19/24 18:00 09/16/24 06:09 0.5 MG Albuterol 2.5 mg Q6HR NEB 08/19/24 18:00 09/16/24 06:09 2.5 MG Acetaminophen 650 mg Q6HP PRN SD 08/21/24 01:45 08/23/24 03:36 650 MG Epoetin Aquilino-epbx 10,000 unit TUTHSA@2100 [place] 08/26/24 21:00 09/13/24 00:02 10,000 UNIT Albumin Human 100 ml @ 100 mls/hr PRN PRN IV 08/26/24 06:45 08/27/24 07:45 100 MLS/HR Norepinephrine Bitartrate 32 mg/ Sodium Chloride 250 ml @ 0.469 mls/ hr Q24H IV 08/27/24 13:00 09/06/24 01:01 0.469 MLS/HR Heparin Sodium (Porcine) 5,000 units Q12HR SC 08/31/24 22:00 09/16/24 09:56 5,000 UNITS Sodium Chloride 10 ml QSHIFT@10,22 IV 08/31/24 22:00 09/16/24 09:57 10 ML Artificial Tears 2 drop Q4HR PRN EACHEYE 09/02/24 10:45 09/14/24 21:59 2 DROP Dextrose 50 ml UD PRN IV 09/03/24 21:00 Hydralazine HCl 50 mg Q8HR PRN PO 09/05/24 09:15 Hydralazine HCl 20 mg Q6HP PRN IV 09/08/24 11:45 09/13/24 23:04 20 MG Enteral Nutritional Formula 1,000 ml 60ML/HR GT 09/08/24 22:15 09/14/24 17:25 1,000 ML Insulin Human Regular AC SC 09/09/24 07:00 09/16/24 07:22 15 UNITS Diagnostic Test (Pha) 1 strip ACHS 09/09/24 07:00 09/16/24 07:47 1 STRIP Propofol 100 ml @ 3.672 mls/ hr Q24H IV 09/10/24 22:30 09/14/24 07:47 18.36 MLS/HR Aspirin 81 mg DAILY PO 09/12/24 10:00 09/16/24 09:54 81 MG Clopidogrel Bisulfate 75 mg DAILY PO 09/12/24 10:00 09/16/24 09:55 75 MG Atorvastatin Calcium 80 mg HS PO 09/12/24 22:00 09/15/24 21:08 80 MG Fentanyl Citrate 250 ml @ 2.5 mls/hr Q24H IV 09/13/24 03:15 09/14/24 08:01 2.5 MLS/HR Vancomycin HCl 0 ml @ 0 mls/hr UD IV 09/14/24 14:15 Vancomycin HCl 200 ml @ 200 mls/hr Q12H IV 09/14/24 15:00 09/16/24 02:56 200 MLS/HR Pantoprazole Sodium 40 mg DAILY IV 09/15/24 08:15 09/16/24 09:55 40 MG Purified Water 300 ml Q4HR GT 09/16/24 09:00 09/16/24 10:10 300 ML Insulin Glargine 20 units HS SC 09/16/24 09:00 09/16/24 09:59 20 UNITS objective The patient is well-nourished and well-developed with no distress. MENTAL STATUS: Subjective CRANIAL NERVES: Pupils are round and reactive, with a right side slightly bigger when the pupils are dilated. There are spontaneous blinking and possible conjugated eye movement. No signs of facial weakness. There are gagging or coughing reflexes SENSATION: Responses to pain stimuli. MOTOR: Normal tone in the upper and lower extremity. Normal muscle bulk. No fasciculations. Muscle power in the arms: Left: 3/5, right: 1-2/5, stronger in the left arm. Muscle power in the legs: 4/5, REFLEXES: Deep tendon reflexes are symmetrical. No pathological reflexes. CEREBELLAR/COORDINATION: Deferred GAIT/STATION: deferred laboratory and microbiology Laboratory Tests 09/16/24 03:20 Test 09/16/24 03:20 Range/Units Serum Glucose 337 #H 74-106 mg/dL Problem List New right upper extremity weakness, to rule out new stroke Left hemisphere stroke Right cerebellum hemispheres stroke Altered mental status Metabolic encephalopathy Hypoxic encephalopathy Toxic encephalopathy Uncontrolled diabetes Acidosis Sepsis, septic shock Urinary tract infection Pneumonia Kidney failure Respiratory failure ICU myopathy Intermittently anisocoria, uncertain clinical significance Assessment/Plan Monitoring Supportive treatment Follow-up MR brain ESTHER ICU care Stabilize vitals/pressor drip Respiratory support/vent management Oxygen Antibiotics Lipitor 80 mg daily Plavix 75 mg daily Aspirin 81 mg daily DVT prophylaxis/heparin subQ GI prophylaxis/Protonix More recommendation per clinical course This medical document was created using an electronic medical record system with [employer] system. Although this document has been carefully reviewed, there may still be some phonetic and typographical errors. These areas are purely typographical due to imperfections of the software programs, and do not reflect any compromise in the patient's medical care Prognosis poor Dietary Evaluation Review Recommendations by RD: Protein Supplementation, PPN/TPN Comments: Pt is at high risk of malnutrition due to prolonged vomiting leading to inadequate nutrient intake and hypermetabolic state secondary to acute inflammation. Recommendation: 1) Start PN/TPN per pharmacy 2) If GI is accessible, consider TF Pivot 1.5Cal @ 60ml/hr along with Pro-stat 1 pk TID. Start @ 10ml/hr, increase 10ml/hr Q4H until goal rate is reached. Advance TF rate slowly and gradually to prevent Refeeding syndrome. Water Flush 50ml Q4H if allowed. TF Provision --- TF at goal volume to provide 1440 ml total volume, 2160 kcal (+300 kcal via Pro-stat = 2460 kcal), 135 gm pro (+45 gm via ProStat = 180 gm), 1093 ml H20 (meets 100% est. kcal needs, 100% est. protein needs) 3) Monitor Potassium, Phosphate, Magnesium for Refeeding syndrome 4) Des 1 pk daily For DTI 5) Continue current plan of care Expected Outcomes/Goals: Blood glucose to improve Nutrient intake to meet at least 75% estimated needs FU 2-3 days Food and Nutrition Intake (Mod: <75% est energy req 7days Protein Calorie Malnutrition: Severe Plan discussed with: Spouse, Other Critical Care Time(min): 35 CHRISTOPHE CHÁVEZ MD September 16, 2024 10:39
[2024-09-16] MEDS ORDERED: LORazepam 2MG/ML-1ML VIAL IV PRN (10:45)
[2024-09-16] MEDS: amLODIPine BESYLATE 5 MG TAB PO ONE (16:01)
--- NOTE | 2024-09-16 16:05 | DVHPNRES ---
Progress Note Date Seen: September 16, 2024 Resident Creating Document: ELIO SANTOS RESIDENT Has the PT tested + for MRSA If YES, has PT been informed?: No Medical Necessity Reason Pt with a Central, PICC or Fol: Yes The following are medically ne: Central Line, Chavez Catheter Reason for chavez catheter: Strict I&O Subjective Review of Systems Patient seen and examined on the bedside He is alert, more arousable and oriented He is on trach collar trial with 8L O2 and FiO2 30% MRI of head demonstrated Acute infarction within the right cerebellar hemisphere measuring 3.2 x 0.7 cm. Left frontoparietal increased T2 signal with mild diffusion restriction signal. This could represent subacute infarct or underlying mass/lesion. Neurology evaluated the patient and recommended ESTHER for possible identification of the source of the emboli for ischemic stroke. EEG demonstrated borderline normal EEG and no focal lateralized or epileptiform features noted. cardiology evaluated the patient and mentioned not a good candidate for ESTHER due to his recent tracheostomy. Objective vital signs Vital Sign Date Time Temp Pulse Resp B/P (MAP) Pulse Ox O2 Delivery O2 Flow Rate FiO2 09/16/24 16:01 153/84 09/16/24 14:00 15 98 Trach Collar 8 30 30 09/16/24 14:00 98 09/16/24 12:00 97.8 97.8 Total Intake and Output 09/15/24 09/15/24 09/16/24 15:00 23:00 07:00 Intake Total 145.6 ml 1370.9 ml 1498.6 ml Output Total 1250 ml 1300 ml Balance 145.6 ml 120.9 ml 198.6 ml medications Current Medications Medications Dose Ordered Sig/Nikki Route Start Time Stop Time Status Last Admin Dose Admin Diagnostic Test (Pha) 1 strip ACHS 08/19/24 17:00 Cancel Norepinephrine Bitartrate 250 ml @ 3.75 mls/hr Q24H IV 08/19/24 17:15 Cancel Midazolam HCl 50 ml @ 1 mls/hr Q24H IV 08/19/24 17:15 09/09/24 19:10 1 MLS/HR Ipratropium [place] 0.5 mg Q6HR NEB 08/19/24 18:00 09/16/24 11:32 0.5 MG Albuterol 2.5 mg Q6HR NEB 08/19/24 18:00 09/16/24 11:32 2.5 MG Acetaminophen 650 mg Q6HP PRN [place] 08/21/24 01:45 08/23/24 03:36 650 MG Epoetin Aquilino-epbx 10,000 unit TUTHSA@2100 [place] 08/26/24 21:00 09/13/24 00:02 10,000 UNIT Albumin Human 100 ml @ 100 mls/hr PRN PRN IV 08/26/24 06:45 08/27/24 07:45 100 MLS/HR Norepinephrine Bitartrate 32 mg/ Sodium Chloride 250 ml @ 0.469 mls/ hr Q24H IV 08/27/24 13:00 09/06/24 01:01 0.469 MLS/HR Heparin Sodium (Porcine) 5,000 units Q12HR SC 08/31/24 22:00 09/16/24 09:56 5,000 UNITS Sodium Chloride 10 ml QSHIFT@10,22 IV 08/31/24 22:00 09/16/24 09:57 10 ML Artificial Tears 2 drop Q4HR PRN EACHEYE 09/02/24 10:45 09/14/24 21:59 2 DROP Dextrose 50 ml UD PRN IV 09/03/24 21:00 Hydralazine HCl 50 mg Q8HR PRN PO 09/05/24 09:15 Hydralazine HCl 20 mg Q6HP PRN IV 09/08/24 11:45 09/16/24 13:32 20 MG Enteral Nutritional Formula 1,000 ml 60ML/HR GT 09/08/24 22:15 09/14/24 17:25 1,000 ML Insulin Human Regular AC SC 09/09/24 07:00 09/16/24 11:44 6 UNITS Diagnostic Test (Pha) 1 strip ACHS 09/09/24 07:00 09/16/24 11:39 1 STRIP Propofol 100 ml @ 3.672 mls/ hr Q24H IV 09/10/24 22:30 09/14/24 07:47 18.36 MLS/HR Aspirin 81 mg DAILY PO 09/12/24 10:00 09/16/24 09:54 81 MG Clopidogrel Bisulfate 75 mg DAILY PO 09/12/24 10:00 09/16/24 09:55 75 MG Atorvastatin Calcium 80 mg HS PO 09/12/24 22:00 09/15/24 21:08 80 MG Fentanyl Citrate 250 ml @ 2.5 mls/hr Q24H IV 09/13/24 03:15 09/14/24 08:01 2.5 MLS/HR Vancomycin HCl 0 ml @ 0 mls/hr UD IV 09/14/24 14:15 Pantoprazole Sodium 40 mg DAILY IV 09/15/24 08:15 09/16/24 09:55 40 MG Insulin Glargine 20 units HS SC 09/16/24 09:00 09/16/24 09:59 20 UNITS Lorazepam 1 mg ONCE PRN IV 09/16/24 10:45 Purified Water 200 ml QID GT 09/16/24 18:00 Amlodipine Besylate 5 mg DAILY PO 09/17/24 10:00 Examination Examination: Constitutional: Patient is alert, arousable and oriented Gen - mild conjuctival pallor, no icterus, no cyanosis, no clubbing, no LAD, 1+ edema in the feet . Skin - Patients skin is warm and dry. HEENT - normocephalic, atraumatic, moist mucous membranes. Neck - full ROM, no LAD, no jvd Pulmonary - B/L air entry present, diffuse rales, no wheezing, no stridor. cardiovascular - regular S1,S2 heard, no added sounds, no murmurs heard. GI - soft abdomen. no hepatospleenomegaly. bowel sounds hypoactive sacrum- ulcer seen , stage 3 ulcer with bloody oozing in gluteal fold Neurological - Strength at 5/5 X3 ext, Normal tone, Sensation intact, grossly intact cranial nerves laboratory and microbiology Laboratory Tests 09/16/24 14:00 09/16/24 03:20 Test 09/16/24 03:20 Range/Units Serum Glucose 337 #H 74-106 mg/dL Microbiology Date/Time Source Procedure Growth Status 09/10/24 10:47 Catheter Tip Other Aerobic Culture - Final Complete 09/04/24 10:19 Blood Blood Culture - Final NO GROWTH AFTER 5 DAYS OF INCUBATION. Complete 08/31/24 15:08 Sputum Gram Stain - Final Complete 08/31/24 15:08 Respiratory Culture - Final Presumptive Mary albicans Complete 08/31/24 14:00 Urine - [place] Urine Culture - Final Complete Labs and/or images reviewed: Labs reviewed by me Problem List/Assessment/Plan Problem List/Assessment/Plan Assessment and plan: Neurology Acute ischemic stroke in the rt cerebellar hemisphere and Left frontoparietal Acute metabolic encephalopathy likely due to sepsis/HHS - MRI demonstrated Acute infarction within the right cerebellar hemisphere measuring 3.2 x 0.7 cm. Left frontoparietal increased T2 signal with mild diffusion restriction signal. This could represent subacute infarct or underlying mass/lesion. - on mechanical ventilation - Patient underwent tracheostomy yesterday. - Patient passed the window period of tPA therapy for ischemic stroke and also he has a recent history of GI bleeding in 1 week. - Consulted neurology - Continue aspirin 81 mg daily, clopidogrel 75 mg daily and atorvastatin 80 mg at HS - Neurology evaluated the patient and recommended ESTHER for possible identification of the source of the emboli for ischemic stroke. EEG demonstrated borderline normal EEG and no focal lateralized or epileptiform features noted. cardiology evaluated the patient and recommended Considering patient's current status, comorbidities and having tracheostomy, he is not a good candidate for ESTHER, we will repeat transthoracic echo. Respiratory Acute hypoxic respiratory failure Probable aspiration pneumonia ARDS - S/P tracheostomy and on trach collar trial with 8L O2 - chest x-ray shows bilateral patchy opacities - ABG compensated - duonebs q6hr - IV antibiotics Vancomycin - sputum culture showed growth of yeast Cardiovascular Shock due to sepsis possibly from aspiration Acute on chronic heart failure with reduced ejection fraction Hypertensive heart disease - echo showed LVEF< 40% - Amlodipine 5 mg po daily. Infectious disease Septic shock likely due to aspiration pneumonia Infected Sacral ulcer, unstageable pressure ulcer - on IV antibiotics - culture from sacral ulcer growing enterococcus - blood culture showed no growth - on Vancomycin Nephrology Metabolic alkalosis likely from intractable vomiting, resolved KATE on CKD likely due to be VMN from dehydration - Last dialysis on 09/07/24 and hold off dialysis per nephrology. - urine output improved - Free water 200 ml TID - Epotein alpha-epbx per protocol GI ?Gastroparesis ?Upper GI bleed - KUB shows nonobstructive bowel gas pattern - IV Protonix daily - 4 units of PRBC given, H&H stable - GI on board - CT with PO contrast showed no obstruction. - FOBT positive - Dobbhoff tube with enteral feeding Glucerna Endocrinology Uncontrolled diabetes mellitus with a hyperglycemia Morbid obesity - on insulin sliding scale - lantus 20 unit HS Skin - stage III big ulcer in the sacral area covered with eschar - Surgery mentioned patient does not need debridement now because no fluctuation or discharge. Diet: dobhoff tube DVT prophylaxis: heparin Left upper arm PICC placed on 08/31 Chavez's catheter placed on 09/09/24 Goals of care discussed with the patient's sister Sheree for over 27 mins. Full code Critical care time spent 83 minutes includes trach collar trial Plan discussed with Dr. Flowers Plan discussed with: Other (Sister, RN) My Orders My Orders Orders - ELIO SANTOS RESIDENT Procedure Category Date Status Time Trach Collar Trial RT 09/15/24 Transmitted 16:38 Trach Collar Trial RT 09/16/24 Transmitted 08:00 Insulin Lantus PHA 09/16/24 In Process (Glargine) (Lantus) 09:00 Pt Request For Service PT 09/16/24 Logged 14:19 Respiratory Culture MIRLANDE 09/16/24 Uncollected W/ Gs 14:19 Dietary Evaluation Review Recommendations by RD: Protein Supplementation, PPN/TPN Comments: Pt is at high risk of malnutrition due to prolonged vomiting leading to inadequate nutrient intake and hypermetabolic state secondary to acute inflammation. Recommendation: 1) Start PN/TPN per pharmacy 2) If GI is accessible, consider TF Pivot 1.5Cal @ 60ml/hr along with Pro-stat 1 pk TID. Start @ 10ml/hr, increase 10ml/hr Q4H until goal rate is reached. Advance TF rate slowly and gradually to prevent Refeeding syndrome. Water Flush 50ml Q4H if allowed. TF Provision --- TF at goal volume to provide 1440 ml total volume, 2160 kcal (+300 kcal via Pro-stat = 2460 kcal), 135 gm pro (+45 gm via ProStat = 180 gm), 1093 ml H20 (meets 100% est. kcal needs, 100% est. protein needs) 3) Monitor Potassium, Phosphate, Magnesium for Refeeding syndrome 4) Des 1 pk daily For DTI 5) Continue current plan of care Expected Outcomes/Goals: Blood glucose to improve Nutrient intake to meet at least 75% estimated needs FU 2-3 days Food and Nutrition Intake (Mod: <75% est energy req 7days Protein Calorie Malnutrition: Severe Date of Service: September 16, 2024 Billing Provider: ARMANDO FLOWERS MD Common Visit Codes: [id number] CARE 30-74 MIN, [id number] CARE-EACH +30MIN ELIO SANTOS RESIDENT September 16, 2024 16:05 ARMANDO FLOWERS MD September 17, 2024 11:40
--- NOTE | 2024-09-16 17:11 | DVHPNRES ---
Progress Note Date Seen: September 16, 2024 Resident Creating Document: NATALIE ROSALES NBA Has the PT tested + for MRSA If YES, has PT been informed?: No Medical Necessity Reason Pt with a Central, PICC or Fol: Yes The following are medically ne: Central Line, Chavez Catheter Reason for chavez catheter: Strict I&O Subjective Review of Systems Patient seen and examined at the bedside. Patient is on mechanical ventilation through tracheostomy tube. Patient Is sedated, review of systems could not obtain. Patient reports: No new complaints Changes from previous H/P or p: No Changes Objective vital signs Vital Sign Date Time Temp Pulse Resp B/P (MAP) Pulse Ox O2 Delivery O2 Flow Rate FiO2 09/16/24 16:30 101 21 154/83 (106) 98 09/16/24 16:00 Trach Collar 8 30 30 09/16/24 16:00 98.1 98.1 Total Intake and Output 09/15/24 09/15/24 09/16/24 15:00 23:00 07:00 Intake Total 145.6 ml 1370.9 ml 1498.6 ml Output Total 1250 ml 1300 ml Balance 145.6 ml 120.9 ml 198.6 ml medications Current Medications Medications Dose Ordered Sig/Nikki Route Start Time Stop Time Status Last Admin Dose Admin Diagnostic Test (Pha) 1 strip ACHS 08/19/24 17:00 Cancel Norepinephrine Bitartrate 250 ml @ 3.75 mls/hr Q24H IV 08/19/24 17:15 Cancel Midazolam HCl 50 ml @ 1 mls/hr Q24H IV 08/19/24 17:15 09/09/24 19:10 1 MLS/HR Ipratropium [place] 0.5 mg Q6HR NEB 08/19/24 18:00 09/16/24 11:32 0.5 MG Albuterol 2.5 mg Q6HR NEB 08/19/24 18:00 09/16/24 11:32 2.5 MG Acetaminophen 650 mg Q6HP PRN [place] 08/21/24 01:45 08/23/24 03:36 650 MG Epoetin Aquilino-epbx 10,000 unit TUTHSA@2100 [place] 08/26/24 21:00 09/13/24 00:02 10,000 UNIT Albumin Human 100 ml @ 100 mls/hr PRN PRN IV 08/26/24 06:45 08/27/24 07:45 100 MLS/HR Norepinephrine Bitartrate 32 mg/ Sodium Chloride 250 ml @ 0.469 mls/ hr Q24H IV 08/27/24 13:00 09/06/24 01:01 0.469 MLS/HR Heparin Sodium (Porcine) 5,000 units Q12HR SC 08/31/24 22:00 09/16/24 09:56 5,000 UNITS Sodium Chloride 10 ml QSHIFT@10,22 IV 08/31/24 22:00 09/16/24 09:57 10 ML Artificial Tears 2 drop Q4HR PRN EACHEYE 09/02/24 10:45 09/14/24 21:59 2 DROP Dextrose 50 ml UD PRN IV 09/03/24 21:00 Hydralazine HCl 50 mg Q8HR PRN PO 09/05/24 09:15 Hydralazine HCl 20 mg Q6HP PRN IV 09/08/24 11:45 09/16/24 13:32 20 MG Enteral Nutritional Formula 1,000 ml 60ML/HR GT 09/08/24 22:15 09/14/24 17:25 1,000 ML Insulin Human Regular AC SC 09/09/24 07:00 09/16/24 11:44 6 UNITS Diagnostic Test (Pha) 1 strip ACHS 09/09/24 07:00 09/16/24 11:39 1 STRIP Propofol 100 ml @ 3.672 mls/ hr Q24H IV 09/10/24 22:30 09/14/24 07:47 18.36 MLS/HR Aspirin 81 mg DAILY PO 09/12/24 10:00 09/16/24 09:54 81 MG Clopidogrel Bisulfate 75 mg DAILY PO 09/12/24 10:00 09/16/24 09:55 75 MG Atorvastatin Calcium 80 mg HS PO 09/12/24 22:00 09/15/24 21:08 80 MG Fentanyl Citrate 250 ml @ 2.5 mls/hr Q24H IV 09/13/24 03:15 09/14/24 08:01 2.5 MLS/HR Vancomycin HCl 0 ml @ 0 mls/hr UD IV 09/14/24 14:15 Pantoprazole Sodium 40 mg DAILY IV 09/15/24 08:15 09/16/24 09:55 40 MG Insulin Glargine 20 units HS SC 09/16/24 09:00 09/16/24 09:59 20 UNITS Lorazepam 1 mg ONCE PRN IV 09/16/24 10:45 Purified Water 200 ml QID GT 09/16/24 18:00 Amlodipine Besylate 5 mg DAILY PO 09/17/24 10:00 Vancomycin HCl 200 ml @ 200 mls/hr Q16H IV 09/16/24 22:00 Examination General: RASS -2, afebrile, mucosae are moist Cardiovascular: Normal S1 and S2. No murmurs, gallops or rubs Respiratory: Mechanically assisted ventilation through tracheostomy tube, equal bilateral airway entree. Clear lung sounds on auscultation Abdomen: Soft, nontender, no organomegaly, normal bowel sounds MSK/skin: Mobilization of limbs cannot be evaluated. Skin is dry and warm. Neurological: Orientation cannot be assessed. Pupils are isocoric and reactive laboratory and microbiology Laboratory Tests 09/16/24 14:00 09/16/24 03:20 Test 09/16/24 03:20 Range/Units Serum Glucose 337 #H 74-106 mg/dL Microbiology Date/Time Source Procedure Growth Status 09/10/24 10:47 Catheter Tip Other Aerobic Culture - Final Complete 09/04/24 10:19 Blood Blood Culture - Final NO GROWTH AFTER 5 DAYS OF INCUBATION. Complete 08/31/24 15:08 Sputum Gram Stain - Final Complete 08/31/24 15:08 Respiratory Culture - Final Presumptive Mary albicans Complete 08/31/24 14:00 Urine - [place] Urine Culture - Final Complete Labs and/or images reviewed: Labs reviewed by me, Image(s) reviewed by me Problem List/Assessment/Plan Problem List/Assessment/Plan Acute metabolic encephalopathy, likely due to sepsis/uremic/stroke Acute hypoxic respiratory failure, likely due to CPAP/aspiration pneumonia/ARDS Recurrent ischemic stroke Possible acute on chronic systolic heart failure NSTEMI, likely type 2, due to above Sepsis, likely due to pneumonia/infected sacral wound Uncontrolled diabetes type 2 with hyperglycemia KATE on possible CKD, improving Obesity, grade 2 [place] grade 3 * EKGs shows, sinus rhythm with no significant ST or T-wave changes * TTE shows, moderate LV dysfunction (LVEF less than 40%), very limited study, only apical images interpreted, RV not well seen * Troponin I is raised at 235 Plan/Recommendation (Case discussed with Dr. Carlos) * Continue aspirin and Plavix * Keep K above 4, and Mag above 2 * Thoracic echo shows, right atrial and right ventricular enlargement. Left atrial enlargement. Hypertrophy of papillary muscles. Valves appear to be structurally normal. EF of 60% with normal RV function * Considering patient's current status, comorbidities and having tracheostomy, he is not a good candidate for ESTHER, no cardiology workup is required at the moment, we sign out the patient, may follow with cardiology on out patient basis once stabilized * Rest of plan, per primary team Thank you for allowing us to participate in this patient's care. Please call if you have any questions or concerns. Plan discussed with: Other (RN) Dietary Evaluation Review Recommendations by RD: Protein Supplementation, PPN/TPN Comments: Pt is at high risk of malnutrition due to prolonged vomiting leading to inadequate nutrient intake and hypermetabolic state secondary to acute inflammation. Recommendation: 1) Start PN/TPN per pharmacy 2) If GI is accessible, consider TF Pivot 1.5Cal @ 60ml/hr along with Pro-stat 1 pk TID. Start @ 10ml/hr, increase 10ml/hr Q4H until goal rate is reached. Advance TF rate slowly and gradually to prevent Refeeding syndrome. Water Flush 50ml Q4H if allowed. TF Provision --- TF at goal volume to provide 1440 ml total volume, 2160 kcal (+300 kcal via Pro-stat = 2460 kcal), 135 gm pro (+45 gm via ProStat = 180 gm), 1093 ml H20 (meets 100% est. kcal needs, 100% est. protein needs) 3) Monitor Potassium, Phosphate, Magnesium for Refeeding syndrome 4) Des 1 pk daily For DTI 5) Continue current plan of care Expected Outcomes/Goals: Blood glucose to improve Nutrient intake to meet at least 75% estimated needs FU 2-3 days Food and Nutrition Intake (Mod: <75% est energy req 7days Protein Calorie Malnutrition: Severe Visit Coding Cardiology RES Date of Service: September 16, 2024 Billing Provider: DRU CARLOS MD Cardiology Common Codes: [id number] INP/OBS CARE (High) NATALIE ROSALES RESDIENT September 16, 2024 17:11
[2024-09-16] MEDS: VANCOMYCIN 1GM/200ML PM 200 ML IV SCH ×2 (21:45→21:53)
[2024-09-17] VITALS (76 sets, daily range): BP systolic 127–167; BP diastolic 74–99; PULSE 97–110; RESP 8–29; TEMP 94.3–98.9; O2SAT 95–100
[2024-09-17 03:41] LABS: Hemoglobin 11.4 g/dL (13.5-17.5); Monocytes # (auto) 1.2 10 ^3/uL (0-1.3); Red Cell Distribution Width 15.1 % (11.8-14.3)
[2024-09-17 03:46] LABS: Basophils # (auto) 0.3 10 ^3/uL (0-0.2); Basophils % (auto) 1.3 % (0.0-2.0); Eosinophils # (auto) 0.3 10 ^3/uL (0-0.8); Eosinophils % (auto) 1.2 % (0.0-7.0); Lymphocytes # (auto) 2.5 10 ^3/uL (0.4-5.4); Lymphocytes % (auto) 10.6 % (10.0-50.0); Mean Corpuscular Hgb Conc. 33.4 g/dL (32.0-36.0); Mean Corpuscular Volume 86.7 fL (80.0-100.0); Monocytes % (auto) 5.2 % (0.0-12.0); Neutrophils # (auto) 19.3 10 ^3/uL (1.6-8.6); Neutrophils % (auto) 81.7 % (37.0-80.0); Platelet Count (auto) 574 10^3/uL (140-450); Red Blood Cells 3.93 10^6/uL (4.5-5.90); White Blood Cell 23.7 10^3/uL (4.4-10.8)
[2024-09-17 03:47] LABS: Anion Gap 12 (5-15); Calcium 8.8 mg/dL (8.7-10.4); Carbon Dioxide 23 mmol/L (20-31)
[2024-09-17 03:52] LABS: BUN/Creatinine Ratio 25.8 (10.0-20.0)
[2024-09-17 04:01] LABS: Blood Urea Nitrogen 33 mg/dL (9-23); Chloride 114 mmol/L (98-107); Glucose 214 mg/dL (74-106); Sodium 149 mmol/L (136-145)
[2024-09-17] MEDS: hydrALAZINE HCL 25 MG TAB PO PRN (04:18)
[2024-09-17] MEDS: POTASSIUM CHL 20MEQ/50ML 50 ML IV SCH (05:17)
[2024-09-17] MEDS: POTASSIUM CHL 20MEQ/100ML 100 ML IV SCH (07:54)
[2024-09-17] MEDS: amLODIPine BESYLATE 5 MG TAB PO SCH (09:35)
--- NOTE | 2024-09-17 10:35 | DVHPN2 ---
Progress Note - Dictate Date Seen: September 17, 2024 Has the PT tested + for MRSA If YES, has PT been informed?: No Medical Necessity Reason Pt with a Central, PICC or Fol: Yes The following are medically ne: Central Line, Chavez Catheter Reason for chavez catheter: Strict I&O Subjective Mr. Moore is a 44 years old right-handed gentleman with a history of diabetes, kidney failure once on hemodialysis, obesity, the patient was brought to the hospital on 08/19/2024 by the family for altered mental status. I have seen and examined the patient, I have discussed with his nurse, in the room with him, overall he keeps getting better, he did not use CPAP last night. Right arm weakness is better today He and his declined MRI scan Blood culture, 08/31/2024: Staphylococcus epidermidis, Staphylococcus hominis Stool occult blood, 09/07/2024: Positive UDS, 08/19/2024: Negative Plasma alcohol, 08/19/2024: Normal Urinalysis, 08/19/2024: WBC: 16, urine leukocyte esterase: Trace ABG 08/19/2024: Respiratory c acidosis WBC/HB/PLT/MCV, 08/19/2024: 37.8/14.8/159/86.1 08/25/2024: 34.8/7.7/180/89.5, 09/11/2024:17.2/10/635/86.8 PT/INR/PTT, 09/10/2024: 12.8/1.23/24.9 Na, 08/19/24: 114, 08/20/24: 123, 08/26/24: 134 BUN/CR, 08/19/2024: 112/8.94, 09/09/2024: 82/2.79, 09/11/2024: 81/2.42 HCO3, 08/19/2024: >40, 17, 08/20/2024: 37 Anion gap, 08/19/2024: 22.9999 Beta hydroxybutyric acid, 08/19/2024: 0.498 Lactic acid, 08/19/2024: 5.7, 4.6 HGB A1c, 08/19/2024: 11.7 Liver function tests, 09/07/2024: Unremarkable TG/HDL/LDL/HDL, 09/11/2024: 351/200/134/21 EEG, 09/13/2024: Borderline Carotid Doppler, 09/11/2024: No evidence of hemodynamically significant stenosis in the carotid arteries CT head, 09/11/2024: 1. Findings consistent with acute or subacute left MCA territory infarct. 2. No evidence of acute intracranial hemorrhage. 3. Partial opacification of the mastoid air cells bilaterally, likely effusions. Correlate clinically to exclude mastoiditis. CT head, 09/11/2024: Acute infarction within the right cerebellar hemisphere measuring 3.2 x 0.7 cm. Less pronounced diffusion restriction signal within the left frontoparietal lobe vital signs Vital Sign Date Time Temp Pulse Resp B/P (MAP) Pulse Ox O2 Delivery O2 Flow Rate FiO2 09/17/24 09:35 154/94 09/17/24 08:00 103 20 97 Trach Collar 8 30 30 09/17/24 08:00 97.9 97.9 Total Intake and Output 09/16/24 09/16/24 09/17/24 15:00 23:00 07:00 Intake Total 16.494 ml 1730 ml 2403 ml Output Total 1915 ml 1715 ml Balance 16.494 ml -185 ml 688 ml medications Current Medications Medications Dose Ordered Sig/Nikki Route Start Time Stop Time Status Last Admin Dose Admin Diagnostic Test (Pha) 1 strip ACHS 08/19/24 17:00 Cancel Norepinephrine Bitartrate 250 ml @ 3.75 mls/hr Q24H IV 08/19/24 17:15 Cancel Midazolam HCl 50 ml @ 1 mls/hr Q24H IV 08/19/24 17:15 09/09/24 19:10 1 MLS/HR Ipratropium [place] 0.5 mg Q6HR NEB 08/19/24 18:00 09/17/24 06:16 0.5 MG Albuterol 2.5 mg Q6HR NEB 08/19/24 18:00 09/17/24 06:16 2.5 MG Acetaminophen [address] 08/21/24 01:45 08/23/24 03:36 650 MG Epoetin Aquilino-epbx 10,000 unit TUTHSA@2100 PA 08/26/24 21:00 09/13/24 00:02 10,000 UNIT Albumin Human 100 ml @ 100 mls/hr PRN PRN IV 08/26/24 06:45 08/27/24 07:45 100 MLS/HR Norepinephrine Bitartrate 32 mg/ Sodium Chloride 250 ml @ 0.469 mls/ hr Q24H IV 08/27/24 13:00 09/06/24 01:01 0.469 MLS/HR Heparin Sodium (Porcine) 5,000 units Q12HR SC 08/31/24 22:00 09/17/24 09:36 5,000 UNITS Sodium Chloride 10 ml QSHIFT@10,22 IV 08/31/24 22:00 09/17/24 09:35 10 ML Artificial Tears 2 drop Q4HR PRN EACHEYE 09/02/24 10:45 09/14/24 21:59 2 DROP Dextrose 50 ml UD PRN IV 09/03/24 21:00 Hydralazine HCl 50 mg Q8HR PRN PO 09/05/24 09:15 09/17/24 04:18 50 MG Hydralazine HCl 20 mg Q6HP PRN IV 09/08/24 11:45 09/16/24 21:26 20 MG Enteral Nutritional Formula 1,000 ml 60ML/HR GT 09/08/24 22:15 09/16/24 20:08 1,000 ML Insulin Human Regular AC SC 09/09/24 07:00 09/17/24 07:17 6 UNITS Diagnostic Test (Pha) 1 strip ACHS 09/09/24 07:00 09/17/24 07:17 1 STRIP Propofol 100 ml @ 3.672 mls/ hr Q24H IV 09/10/24 22:30 09/14/24 07:47 18.36 MLS/HR Aspirin 81 mg DAILY PO 09/12/24 10:00 09/17/24 09:34 81 MG Clopidogrel Bisulfate 75 mg DAILY PO 09/12/24 10:00 09/17/24 09:34 75 MG Atorvastatin Calcium 80 mg HS PO 09/12/24 22:00 09/16/24 21:27 80 MG Fentanyl Citrate 250 ml @ 2.5 mls/hr Q24H IV 09/13/24 03:15 09/14/24 08:01 2.5 MLS/HR Vancomycin HCl 0 ml @ 0 mls/hr UD IV 09/14/24 14:15 Pantoprazole Sodium 40 mg DAILY IV 09/15/24 08:15 09/17/24 09:34 40 MG Insulin Glargine 20 units HS SC 09/16/24 09:00 09/16/24 21:44 20 UNITS Lorazepam 1 mg ONCE PRN IV 09/16/24 10:45 Purified Water 200 ml QID GT 09/16/24 18:00 09/17/24 06:19 200 ML Amlodipine Besylate 5 mg DAILY PO 09/17/24 10:00 09/17/24 09:35 5 MG Vancomycin HCl 200 ml @ 200 mls/hr Q18H IV 09/16/24 22:00 09/16/24 21:53 200 MLS/HR Potassium Chloride 100 ml @ 50 mls/hr Q2H IV 09/17/24 07:45 09/17/24 11:44 09/17/24 09:34 50 MLS/HR objective The patient is well-nourished and well-developed with no distress. MENTAL STATUS: Subjective CRANIAL NERVES: Pupils are round and reactive, with a right side slightly bigger when the pupils are dilated. There are spontaneous blinking and possible conjugated eye movement. No signs of facial weakness. There are gagging or coughing reflexes SENSATION: Okay to pinprick and light touch. MOTOR: Normal tone in the upper and lower extremity. Normal muscle bulk. No fasciculations. Muscle power in the arms: Left: 3/5, right: Elbow, hand: 2- 3/5, shoulder: 1/5. Muscle power in the legs: 4/5, REFLEXES: Deep tendon reflexes are symmetrical. No pathological reflexes. CEREBELLAR/COORDINATION: Deferred GAIT/STATION: deferred laboratory and microbiology Laboratory Tests 09/17/24 03:15 Test 09/17/24 03:15 Range/Units Serum Glucose 214 #H 74-106 mg/dL Problem List New right upper extremity weakness, to rule out new stroke Left hemisphere stroke Right cerebellum hemispheres stroke Altered mental status Metabolic encephalopathy Hypoxic encephalopathy Toxic encephalopathy Uncontrolled diabetes Acidosis Sepsis, septic shock Urinary tract infection Pneumonia Kidney failure Respiratory failure ICU myopathy Intermittently anisocoria, uncertain clinical significance Assessment/Plan Monitoring Supportive treatment Follow-up MR brain, declined ESTHER ICU care Stabilize vitals/pressor drip Respiratory support/vent management Oxygen Antibiotics Lipitor 80 mg daily Plavix 75 mg daily Aspirin 81 mg daily DVT prophylaxis/heparin subQ GI prophylaxis/Protonix More recommendation per clinical course This medical document was created using an electronic medical record system with [employer] dictation system. Although this document has been carefully reviewed, there may still be some phonetic and typographical errors. These areas are purely typographical due to imperfections of the software programs, and do not reflect any compromise in the patient's medical care Prognosis poor Dietary Evaluation Review Recommendations by RD: Protein Supplementation, PPN/TPN Comments: Pt is at high risk of malnutrition due to prolonged vomiting leading to inadequate nutrient intake and hypermetabolic state secondary to acute inflammation. Recommendation: 1) Start PN/TPN per pharmacy 2) If GI is accessible, consider TF Pivot 1.5Cal @ 60ml/hr along with Pro-stat 1 pk TID. Start @ 10ml/hr, increase 10ml/hr Q4H until goal rate is reached. Advance TF rate slowly and gradually to prevent Refeeding syndrome. Water Flush 50ml Q4H if allowed. TF Provision --- TF at goal volume to provide 1440 ml total volume, 2160 kcal (+300 kcal via Pro-stat = 2460 kcal), 135 gm pro (+45 gm via ProStat = 180 gm), 1093 ml H20 (meets 100% est. kcal needs, 100% est. protein needs) 3) Monitor Potassium, Phosphate, Magnesium for Refeeding syndrome 4) Des 1 pk daily For DTI 5) Continue current plan of care Expected Outcomes/Goals: Blood glucose to improve Nutrient intake to meet at least 75% estimated needs FU 2-3 days Food and Nutrition Intake (Mod: <75% est energy req 7days Protein Calorie Malnutrition: Severe Plan discussed with: Patient, Spouse, Other CHRISTOPHE CHÁVEZ MD September 17, 2024 10:35
[2024-09-17] MEDS: amLODIPine BESYLATE 5 MG TAB PO ONE (11:51)
--- NOTE | 2024-09-17 15:21 | DVH ---
INDICATION: s/p tracheostomy TECHNIQUE: Frontal view of the chest. COMPARISON: XY CHEST PORTABLE on DOS: 09/15/24, XY CHEST PORTABLE on DOS: 09/13/24, XY CHEST PORTABLE o n DOS: 09/13/24, XY CHEST PORTABLE on DOS: 09/12/24, XY CHEST PORTABLE on DOS: 09/11/24 FINDINGS: Findings:. The heart and mediastinal contours are grossly unremarkable. There is no evidence of pleu ral disease. The lungs mild pulmonary venous congestion. There is tracheostomy tube in place. Feeding tube with the tip not seen in the stomach.. The bony structures of the chest are intact without f racture. IMPRESSION: 1. Mild pulmonary venous congestion 2. Support lines including tracheostomy tube and feeding tube in place 3. No evidence of airspace consolidation..
--- NOTE | 2024-09-17 17:58 | DVHPN2 ---
Consult Progress Note Date Seen: September 17, 2024 Objective vital signs Vital Sign Date Time Temp Pulse Resp B/P (MAP) Pulse Ox O2 Delivery O2 Flow Rate FiO2 09/17/24 16:00 98.8 108 21 141/89 (106) 98 98.8 09/17/24 16:00 Trach Collar 8 30 30 Total Intake and Output 09/16/24 09/16/24 09/17/24 14:59 22:59 06:59 Intake Total 26.194 ml 1530 ml 2603 ml Output Total 1915 ml 1715 ml Balance 26.194 ml -385 ml 888 ml medications Current Medications Medications Dose Ordered Sig/Nikki Route Start Time Stop Time Status Last Admin Dose Admin Diagnostic Test (Pha) 1 strip ACHS 08/19/24 17:00 Cancel Norepinephrine Bitartrate 250 ml @ 3.75 mls/hr Q24H IV 08/19/24 17:15 Cancel Ipratropium [place] 0.5 mg Q6HR NEB 08/19/24 18:00 09/17/24 11:32 0.5 MG Albuterol 2.5 mg Q6HR NEB 08/19/24 18:00 09/17/24 11:32 2.5 MG Acetaminophen 650 mg Q6HP PRN [place] 08/21/24 01:45 08/23/24 03:36 650 MG Epoetin Aquilino-epbx 10,000 unit TUTHSA@2100 [place] 08/26/24 21:00 09/13/24 00:02 10,000 UNIT Albumin Human 100 ml @ 100 mls/hr PRN PRN IV 08/26/24 06:45 08/27/24 07:45 100 MLS/HR Norepinephrine Bitartrate 32 mg/ Sodium Chloride 250 ml @ 0.469 mls/ hr Q24H IV 08/27/24 13:00 09/06/24 01:01 0.469 MLS/HR Heparin Sodium (Porcine) 5,000 units Q12HR SC 08/31/24 22:00 09/17/24 09:36 5,000 UNITS Sodium Chloride 10 ml QSHIFT@10,22 IV 08/31/24 22:00 09/17/24 09:35 10 ML Artificial Tears 2 drop Q4HR PRN EACHEYE 09/02/24 10:45 09/14/24 21:59 2 DROP Dextrose 50 ml UD PRN IV 09/03/24 21:00 Hydralazine HCl 50 mg Q8HR PRN PO 09/05/24 09:15 09/17/24 13:09 50 MG Hydralazine HCl 20 mg Q6HP PRN IV 09/08/24 11:45 09/16/24 21:26 20 MG Enteral Nutritional Formula 1,000 ml 60ML/HR GT 09/08/24 22:15 09/16/24 20:08 1,000 ML Insulin Human Regular AC SC 09/09/24 07:00 09/17/24 12:00 6 UNITS Diagnostic Test (Pha) 1 strip ACHS 09/09/24 07:00 09/17/24 11:51 1 STRIP Aspirin 81 mg DAILY PO 09/12/24 10:00 09/17/24 09:34 81 MG Clopidogrel Bisulfate 75 mg DAILY PO 09/12/24 10:00 09/17/24 09:34 75 MG Atorvastatin Calcium 80 mg HS PO 09/12/24 22:00 09/16/24 21:27 80 MG Vancomycin HCl 0 ml @ 0 mls/hr UD IV 09/14/24 14:15 Pantoprazole Sodium 40 mg DAILY IV 09/15/24 08:15 09/17/24 09:34 40 MG Insulin Glargine 20 units HS SC 09/16/24 09:00 09/16/24 21:44 20 UNITS Lorazepam 1 mg ONCE PRN IV 09/16/24 10:45 Purified Water 200 ml QID GT 09/16/24 18:00 09/17/24 11:52 200 ML Vancomycin HCl 200 ml @ 200 mls/hr Q18H IV 09/16/24 22:00 09/17/24 16:21 200 MLS/HR Amlodipine Besylate 10 mg DAILY PO 09/18/24 10:00 Examination: GENERAL:Abnormal, LUNGS:Abnormal (Tracheostomy in place), CVS:Normal (NSR), ABDOMEN:Abnormal (Feedings via Dobhoff tube), NEURO:Abnormal (+ anisocoria) laboratory and microbiology Laboratory Tests 09/17/24 03:15 Test 09/17/24 03:15 Range/Units Serum Glucose 214 #H 74-106 mg/dL Problem List/Assessment/Plan Problem List/Assessment/Plan Recurrent ischemic stroke rule out cardioembolic source Acute metabolic encephalopathy, likely due to sepsis/uremic/stroke Acute hypoxic respiratory failure, likely due to CPAP/aspiration pneumonia/ARDS Possible acute on chronic systolic heart failure NSTEMI, likely type 2, due to above Sepsis, likely due to pneumonia/infected sacral wound Uncontrolled diabetes type 2 with hyperglycemia KATE on possible CKD, improving Obesity, grade 2 [place] grade 3 * EKGs shows, sinus rhythm with no significant ST or T-wave changes * TTE shows, moderate LV dysfunction (LVEF less than 40%), very limited study, only apical images interpreted, RV not well seen * Troponin I raised at 235 Plan/Recommendation (Case discussed with Dr. Kidd) * Scheduled for a transesophageal echocardiogram with Dr. Kidd on 09/18/2024 * Transthoracic echocardiogram revealed right atrial and right ventricular enlargement. Left atrial enlargement. Hypertrophy of papillary muscles. Valves appear to be structurally normal. EF of 60% with normal RV function * Continue aspirin, Plavix, and statin per neurology recommendations * Keep K above 4, and Mag above 2 * Rest of plan, per primary team All risks and benefits of the ESTHER were discussed with the patient and sister (Sheree Mendez) over the phone who agrees to proceed with intervention. All questions answered. Thank you for allowing us to participate in this patient's care. Please call if you have any questions or concerns. This medical document was created using an electronic medical record system with voice recognition software and computerized dictation system. Although this document has been carefully reviewed, there might still be some phonetic and typographical errors. Occasional wrong-word or ``sound-alike substitutions may have occurred due to the inherent limitations of voice recognition software. These areas are purely typographical due to imperfections of the software programs and do not reflect any compromise in the patient's medical care. Please read the chart carefully and recognize, using context, where these substitutions have occurred. Plan discussed with: Patient, Other (Sister) Dietary Evaluation Review Recommendations by RD: Protein Supplementation, PPN/TPN Comments: Pt is at high risk of malnutrition due to prolonged vomiting leading to inadequate nutrient intake and hypermetabolic state secondary to acute inflammation. Recommendation: 1) Start PN/TPN per pharmacy 2) If GI is accessible, consider TF Pivot 1.5Cal @ 60ml/hr along with Pro-stat 1 pk TID. Start @ 10ml/hr, increase 10ml/hr Q4H until goal rate is reached. Advance TF rate slowly and gradually to prevent Refeeding syndrome. Water Flush 50ml Q4H if allowed. TF Provision --- TF at goal volume to provide 1440 ml total volume, 2160 kcal (+300 kcal via Pro-stat = 2460 kcal), 135 gm pro (+45 gm via ProStat = 180 gm), 1093 ml H20 (meets 100% est. kcal needs, 100% est. protein needs) 3) Monitor Potassium, Phosphate, Magnesium for Refeeding syndrome 4) Des 1 pk daily For DTI 5) Continue current plan of care Expected Outcomes/Goals: Blood glucose to improve Nutrient intake to meet at least 75% estimated needs FU 2-3 days Food and Nutrition Intake (Mod: <75% est energy req 7days Protein Calorie Malnutrition: Severe Date of Service: September 17, 2024 Billing Provider: DEMARCO IVERSON Cardiology Common Codes: [id number] HOSP CARE(High DEMARCO IVERSON September 17, 2024 17:58
--- NOTE | 2024-09-17 18:53 | DVHPNRES ---
Progress Note Date Seen: September 17, 2024 Resident Creating Document: ELIO SANTOS RESIDENT Has the PT tested + for MRSA If YES, has PT been informed?: No Medical Necessity Reason Pt with a Central, PICC or Fol: Yes The following are medically ne: Central Line, Chavez Catheter Reason for chavez catheter: Strict I&O Subjective Review of Systems Patient seen and examined on the bedside He is alert, more arousable and oriented He is on trach collar trial with 8L O2 . MRI of head demonstrated Acute infarction within the right cerebellar hemisphere measuring 3.2 x 0.7 cm. Left frontoparietal increased T2 signal with mild diffusion restriction signal. This could represent subacute infarct or underlying mass/lesion. Neurology evaluated the patient and recommended ESTHER for possible identification of the source of the emboli for ischemic stroke. EEG demonstrated borderline normal EEG and no focal lateralized or epileptiform features noted. Patient is scheduled for ESTHER tomorrow as per Cardiology. Objective vital signs Vital Sign Date Time Temp Pulse Resp B/P (MAP) Pulse Ox O2 Delivery O2 Flow Rate FiO2 09/17/24 18:00 103 09/17/24 18:00 20 98 Trach Collar 8 30 30 09/17/24 18:00 155/88 (110) 09/17/24 16:00 98.8 98.8 Total Intake and Output 09/16/24 09/16/24 09/17/24 15:00 23:00 07:00 Intake Total 16.494 ml 1730 ml 2403 ml Output Total 1915 ml 1715 ml Balance 16.494 ml -185 ml 688 ml medications Current Medications Medications Dose Ordered Sig/Nikki Route Start Time Stop Time Status Last Admin Dose Admin Diagnostic Test (Pha) 1 strip ACHS 08/19/24 17:00 Cancel Norepinephrine Bitartrate 250 ml @ 3.75 mls/hr Q24H IV 08/19/24 17:15 Cancel Ipratropium [place] 0.5 mg Q6HR NEB 08/19/24 18:00 09/17/24 18:42 0.5 MG Albuterol 2.5 mg Q6HR NEB 08/19/24 18:00 09/17/24 18:42 2.5 MG Acetaminophen 650 mg Q6HP PRN [place] 08/21/24 01:45 08/23/24 03:36 650 MG Epoetin Aquilino-epbx 10,000 unit TUTHSA@2100 ID 08/26/24 21:00 09/13/24 00:02 10,000 UNIT Albumin Human 100 ml @ 100 mls/hr PRN PRN IV 08/26/24 06:45 08/27/24 07:45 100 MLS/HR Norepinephrine Bitartrate 32 mg/ Sodium Chloride 250 ml @ 0.469 mls/ hr Q24H IV 08/27/24 13:00 09/06/24 01:01 0.469 MLS/HR Heparin Sodium (Porcine) 5,000 units Q12HR SC 08/31/24 22:00 09/17/24 09:36 5,000 UNITS Sodium Chloride 10 ml QSHIFT@10,22 IV 08/31/24 22:00 09/17/24 09:35 10 ML Artificial Tears 2 drop Q4HR PRN EACHEYE 09/02/24 10:45 09/14/24 21:59 2 DROP Dextrose 50 ml UD PRN IV 09/03/24 21:00 Hydralazine HCl 50 mg Q8HR PRN PO 09/05/24 09:15 09/17/24 13:09 50 MG Hydralazine HCl 20 mg Q6HP PRN IV 09/08/24 11:45 09/16/24 21:26 20 MG Enteral Nutritional Formula 1,000 ml 60ML/HR GT 09/08/24 22:15 09/16/24 20:08 1,000 ML Insulin Human Regular AC SC 09/09/24 07:00 09/17/24 17:27 6 UNITS Diagnostic Test (Pha) 1 strip ACHS 09/09/24 07:00 09/17/24 17:27 1 STRIP Aspirin 81 mg DAILY PO 09/12/24 10:00 09/17/24 09:34 81 MG Clopidogrel Bisulfate 75 mg DAILY PO 09/12/24 10:00 09/17/24 09:34 75 MG Atorvastatin Calcium 80 mg HS PO 09/12/24 22:00 09/16/24 21:27 80 MG Vancomycin HCl 0 ml @ 0 mls/hr UD IV 09/14/24 14:15 Pantoprazole Sodium 40 mg DAILY IV 09/15/24 08:15 09/17/24 09:34 40 MG Insulin Glargine 20 units HS SC 09/16/24 09:00 09/16/24 21:44 20 UNITS Lorazepam 1 mg ONCE PRN IV 09/16/24 10:45 Purified Water 200 ml QID GT 09/16/24 18:00 09/17/24 17:47 200 ML Vancomycin HCl 200 ml @ 200 mls/hr Q18H IV 09/16/24 22:00 09/17/24 16:21 200 MLS/HR Amlodipine Besylate 10 mg DAILY PO 09/18/24 10:00 Examination Examination: Constitutional: Patient is alert, arousable and oriented Gen - mild conjuctival pallor, no icterus, no cyanosis, no clubbing, no LAD, 1+ edema in the feet . Skin - Patients skin is warm and dry. HEENT - normocephalic, atraumatic, moist mucous membranes. Neck - full ROM, no LAD, no jvd Pulmonary - B/L air entry present, diffuse rales, no wheezing, no stridor. cardiovascular - regular S1,S2 heard, no added sounds, no murmurs heard. GI - soft abdomen. no hepatospleenomegaly. bowel sounds hypoactive sacrum- ulcer seen , stage 3 ulcer with bloody oozing in gluteal fold Neurological - Strength at / X3 ext, Normal tone, Sensation intact, grossly intact cranial nerves laboratory and microbiology Laboratory Tests 09/17/24 03:15 Test 09/17/24 03:15 Range/Units Serum Glucose 214 #H 74-106 mg/dL Microbiology Date/Time Source Procedure Growth Status 09/16/24 16:00 Sputum Gram Stain - Final Resulted 09/16/24 16:00 Sputum Respiratory Culture - Preliminary Resulted 09/10/24 10:47 Catheter Tip Other Aerobic Culture - Final Complete 09/04/24 10:19 Blood Blood Culture - Final NO GROWTH AFTER 5 DAYS OF INCUBATION. Complete 08/31/24 14:00 Urine - [place] Urine Culture - Final Complete Labs and/or images reviewed: Labs reviewed by me, Image(s) reviewed by me (Sister, RN) Problem List/Assessment/Plan Problem List/Assessment/Plan Assessment and plan: Neurology Acute ischemic stroke in the rt cerebellar hemisphere and Left frontoparietal Acute metabolic encephalopathy likely due to sepsis/HHS - MRI demonstrated Acute infarction within the right cerebellar hemisphere measuring 3.2 x 0.7 cm. Left frontoparietal increased T2 signal with mild diffusion restriction signal. This could represent subacute infarct or underlying mass/lesion. - on mechanical ventilation - S/P tracheostomy - Patient passed the window period of tPA therapy for ischemic stroke and also he has a recent history of GI bleeding in 1 week. - Continue aspirin 81 mg daily, clopidogrel 75 mg daily and atorvastatin 80 mg at HS - Neurology evaluated the patient and recommended ESTHER for possible identification of the source of the emboli for ischemic stroke. EEG demonstrated borderline normal EEG and no focal lateralized or epileptiform features noted. cardiology scheduled the patient for ESTHER tomorrow. Respiratory Acute hypoxic respiratory failure Probable aspiration pneumonia ARDS - S/P tracheostomy and on trach collar trial with 8L O2 - chest x-ray shows bilateral patchy opacities - ABG compensated - duonebs q6hr - IV antibiotics Vancomycin - sputum culture showed growth of yeast Cardiovascular Shock due to sepsis possibly from aspiration Acute on chronic heart failure with reduced ejection fraction Hypertensive heart disease - echo showed LVEF60% on 09/16 - Amlodipine 10 mg po daily. Infectious disease Septic shock likely due to aspiration pneumonia Infected Sacral ulcer, unstageable pressure ulcer - on IV antibiotics - culture from sacral ulcer growing enterococcus - blood culture showed no growth - on Vancomycin Nephrology Metabolic alkalosis likely from intractable vomiting, resolved KATE on CKD likely due to be VMN from dehydration - Last dialysis on 09/07/24 and hold off dialysis per nephrology. - urine output improved - Free water 200 ml QID - Epotein alpha-epbx per protocol GI ?Gastroparesis ?Upper GI bleed - KUB shows nonobstructive bowel gas pattern - IV Protonix daily - 4 units of PRBC given, H&H stable - GI on board - CT with PO contrast showed no obstruction. - FOBT positive - Dobbhoff tube with enteral feeding Glucerna Endocrinology Uncontrolled diabetes mellitus with a hyperglycemia Morbid obesity - on insulin sliding scale - lantus 20 unit HS Skin - stage III big ulcer in the sacral area covered with eschar - Surgery mentioned patient does not need debridement now because no fluctuation or discharge. Diet: dobhoff tube DVT prophylaxis: heparin Left upper arm PICC placed on 08/31 Chavez's catheter placed on 09/09/24 Goals of care discussed with the patient's sister Sheree for over 27 mins. Full code Critical care time spent 63 minutes includes trach collar trial Plan discussed with Dr. Flowers Plan discussed with: Patient, Other (Sister, RN) My Orders My Orders Orders - ELIO SANTOS RESIDENT Procedure Category Date Status Time Pt Request For Service PT 09/17/24 Logged 13:58 Chest Portable XY 09/17/24 Resulted 14:00 Dietary Evaluation Review Recommendations by RD: Protein Supplementation, PPN/TPN Comments: Pt is at high risk of malnutrition due to prolonged vomiting leading to inadequate nutrient intake and hypermetabolic state secondary to acute inflammation. Recommendation: 1) Start PN/TPN per pharmacy 2) If GI is accessible, consider TF Pivot 1.5Cal @ 60ml/hr along with Pro-stat 1 pk TID. Start @ 10ml/hr, increase 10ml/hr Q4H until goal rate is reached. Advance TF rate slowly and gradually to prevent Refeeding syndrome. Water Flush 50ml Q4H if allowed. TF Provision --- TF at goal volume to provide 1440 ml total volume, 2160 kcal (+300 kcal via Pro-stat = 2460 kcal), 135 gm pro (+45 gm via ProStat = 180 gm), 1093 ml H20 (meets 100% est. kcal needs, 100% est. protein needs) 3) Monitor Potassium, Phosphate, Magnesium for Refeeding syndrome 4) Des 1 pk daily For DTI 5) Continue current plan of care Expected Outcomes/Goals: Blood glucose to improve Nutrient intake to meet at least 75% estimated needs FU 2-3 days Food and Nutrition Intake (Mod: <75% est energy req 7days Protein Calorie Malnutrition: Severe Date of Service: September 17, 2024 Billing Provider: ARMANDO FLOWERS MD Common Visit Codes: 04518-[id number] CARE 30-74 MIN ELIO SANTOS RESIDENT September 17, 2024 18:53 ARMANDO FLOWERS MD September 19, 2024 22:29
[2024-09-18] VITALS (79 sets, daily range): BP systolic 137–165; BP diastolic 78–99; PULSE 1–113; RESP 8–29; TEMP 98.2–99.2; O2SAT 97–100
[2024-09-18 03:33] LABS: Basophils % (auto) 1.1 % (0.0-2.0); Eosinophils # (auto) 0.3 10 ^3/uL (0-0.8); Hemoglobin 11.1 g/dL (13.5-17.5); Mean Corpuscular Volume 87.2 fL (80.0-100.0)
[2024-09-18 03:36] LABS: Basophils # (auto) 0.2 10 ^3/uL (0-0.2); Eosinophils % (auto) 1.5 % (0.0-7.0); Hematocrit 33.2 % (41.0-53.0); Lymphocytes # (auto) 2.8 10 ^3/uL (0.4-5.4); Lymphocytes % (auto) 13.1 % (10.0-50.0); Mean Corpuscular Hemoglobin 29.1 pg (28.0-32.0); Mean Corpuscular Hgb Conc. 33.4 g/dL (32.0-36.0); Monocytes # (auto) 1.2 10 ^3/uL (0-1.3); Monocytes % (auto) 5.5 % (0.0-12.0); Neutrophils # (auto) 17.1 10 ^3/uL (1.6-8.6); Neutrophils % (auto) 78.8 % (37.0-80.0); Platelet Count (auto) 514 10^3/uL (140-450); Red Blood Cells 3.81 10^6/uL (4.5-5.90); Red Cell Distribution Width 15.5 % (11.8-14.3); White Blood Cell 21.7 10^3/uL (4.4-10.8)
[2024-09-18 03:59] LABS: Alanine Aminotransferase 12 U/L (7-40); Albumin 3.6 g/dL (3.2-4.8); Anion Gap 12 (5-15); Aspartate Aminotransferase 15 U/L (13-40); BUN/Creatinine Ratio 25.8 (10.0-20.0); Bilirubin, Total 0.4 mg/dL (0.2-1.0); Carbon Dioxide 22 mmol/L (20-31); Total Protein 7.3 g/dL (5.7-8.2)
[2024-09-18 04:20] LABS: Alkaline Phosphatase 177 U/L (46-116); Blood Urea Nitrogen 32 mg/dL (9-23); Chloride 114 mmol/L (98-107); Glucose 249 mg/dL (74-106); Potassium 3.4 mmol/L (3.5-5.1); Sodium 148 mmol/L (136-145)
--- NOTE | 2024-09-18 06:00 | DVH ---
EXAM: XR Chest, 1 View CLINICAL INDICATION: s/p trach and dobbhoff placement TECHNIQUE: Frontal view of the chest. COMPARISON: XY CHEST PORTABLE on DOS: 09/17/24, XY CHEST PORTABLE on DOS: 09/15/24, XY CHEST PORTABLE on DOS: 09/13/24, XY CHEST PORTABLE on DOS: 09/13/24, XY CHEST PORTABLE on DOS: 09/12/24 FINDINGS: LUNGS AND PLEURAL SPACES: Pulmonary congestion and edema. Pneumonia cannot be excluded. No pneumot horax. HEART: Unremarkable. No cardiomegaly. MEDIASTINUM: Unremarkable. Normal mediastinal contour. BONES/JOINTS: Unremarkable. No acute fracture. TUBES, LINES AND DEVICES: Tracheostomy tube in satisfactory position. Enteric tube tip cannot be s een but is below the diaphragm. OTHER FINDINGS: . . . IMPRESSION: Pulmonary congestion and edema. Pneumonia cannot be excluded.
[2024-09-18] MEDS: POTASSIUM CHL 20MEQ/100ML 100 ML IV ONE (06:51)
[2024-09-18] MEDS: INSULIN LANTUS (GLARGINE) 1 /0.01ml (100units/ml) SC SCH (09:10)
[2024-09-18 09:19] LABS: Base Excess -0.6 mmol/L (-2.0-3.0)
[2024-09-18] MEDS: amLODIPine BESYLATE 5 MG TAB PO SCH (09:44)
--- NOTE | 2024-09-18 11:28 | DVHPN2 ---
Progress Note - Dictate Date Seen: September 18, 2024 Has the PT tested + for MRSA If YES, has PT been informed?: No Medical Necessity Reason Pt with a Central, PICC or Fol: Yes The following are medically ne: Central Line, Chavez Catheter Reason for chavez catheter: Strict I&O Subjective Patient is more awake and responsive, s/p tracheostomy Patient is off the ventilator and is on trach collar Patient is getting enteral tube feedings through the Dobbhoff tube into the small bowel at 60 mL/hour NG-tube discontinued No recorded bowel movement, flexi Seal in place with minimal drainage, patient has a sacral decubitus vital signs Vital Sign Date Time Temp Pulse Resp B/P (MAP) Pulse Ox O2 Delivery O2 Flow Rate FiO2 09/18/24 11:13 155/91 09/18/24 10:30 103 19 99 09/18/24 10:00 Trach Collar 8 30 30 09/18/24 08:00 99.1 99.1 Total Intake and Output 09/17/24 09/17/24 09/18/24 15:00 23:00 07:00 Intake Total 275 ml 1290 ml 691 ml Output Total 1665 ml 1160 ml Balance 275 ml -375 ml -469 ml medications Current Medications Medications Dose Ordered Sig/Nikki Route Start Time Stop Time Status Last Admin Dose Admin Diagnostic Test (Pha) 1 strip ACHS 08/19/24 17:00 Cancel Norepinephrine Bitartrate 250 ml @ 3.75 mls/hr Q24H IV 08/19/24 17:15 Cancel Ipratropium [place] 0.5 mg Q6HR NEB 08/19/24 18:00 09/18/24 11:24 0.5 MG Albuterol 2.5 mg Q6HR NEB 08/19/24 18:00 09/18/24 11:23 2.5 MG Acetaminophen 650 mg Q6HP PRN [place] 08/21/24 01:45 08/23/24 03:36 650 MG Epoetin Aquilino-epbx 10,000 unit TUTHSA@2100 SC 08/26/24 21:00 09/13/24 00:02 10,000 UNIT Albumin Human 100 ml @ 100 mls/hr PRN PRN IV 08/26/24 06:45 08/27/24 07:45 100 MLS/HR Norepinephrine Bitartrate 32 mg/ Sodium Chloride 250 ml @ 0.469 mls/ hr Q24H IV 08/27/24 13:00 09/06/24 01:01 0.469 MLS/HR Heparin Sodium (Porcine) 5,000 units Q12HR SC 08/31/24 22:00 09/18/24 09:48 5,000 UNITS Sodium Chloride 10 ml QSHIFT@10,22 IV 08/31/24 22:00 09/18/24 09:47 10 ML Artificial Tears 2 drop Q4HR PRN EACHEYE 09/02/24 10:45 09/14/24 21:59 2 DROP Dextrose 50 ml UD PRN IV 09/03/24 21:00 Hydralazine HCl 50 mg Q8HR PRN PO 09/05/24 09:15 09/18/24 11:13 50 MG Hydralazine HCl 20 mg Q6HP PRN IV 09/08/24 11:45 09/18/24 06:51 20 MG Enteral Nutritional Formula 1,000 ml 60ML/HR GT 09/08/24 22:15 09/16/24 20:08 1,000 ML Insulin Human Regular AC SC 09/09/24 07:00 09/18/24 06:14 6 UNITS Diagnostic Test (Pha) 1 strip ACHS 09/09/24 07:00 09/18/24 11:16 1 STRIP Aspirin 81 mg DAILY PO 09/12/24 10:00 09/18/24 09:43 81 MG Clopidogrel Bisulfate 75 mg DAILY PO 09/12/24 10:00 09/18/24 09:43 75 MG Atorvastatin Calcium 80 mg HS PO 09/12/24 22:00 09/17/24 21:12 80 MG Vancomycin HCl 0 ml @ 0 mls/hr UD IV 09/14/24 14:15 Pantoprazole Sodium 40 mg DAILY IV 09/15/24 08:15 09/18/24 09:42 40 MG Lorazepam 1 mg ONCE PRN IV 09/16/24 10:45 Purified Water 200 ml QID GT 09/16/24 18:00 09/18/24 05:06 200 ML Vancomycin HCl 200 ml @ 200 mls/hr Q18H IV 09/16/24 22:00 09/18/24 09:47 200 MLS/HR Amlodipine Besylate 10 mg DAILY PO 09/18/24 10:00 09/18/24 09:44 10 MG Insulin Glargine 25 units HS SC 09/18/24 08:30 09/18/24 09:10 25 UNITS objective General: Mechanically ventilated, sedated HEENT: Head is normocephalic and atraumatic. Pupils are equal, round, and reactive to light Neck: Supple with no cervical lymphadenopathy. Heart: Regular rate without murmur, rub, or gallop. Lungs: Bilateral crackles, most prominent on bases Abdomen: No external sign of injury. Bowel sounds present Abdomen is soft, nontender. Extremities: faint peripheral pulses. There is no clubbing, no cyanosis, and no edema. Skin: No rash. laboratory and microbiology Laboratory Tests 09/18/24 03:00 Test 09/18/24 03:00 Range/Units Serum Glucose 249 H 74-106 mg/dL Problems(with codes): (1) CVA (cerebral vascular accident) (2) Leukocytosis (3) Gastroparesis (4) Anemia (5) Metabolic alkalosis Prognosis Plan Continue IV antibiotics Patient is undergoing physical therapy Patient is scheduled for ESTHER today Consider a swallow evaluation on Saturday and then discontinue flexi Seal Patient is also getting wound care for a sacral decubitus Dietary Evaluation Review Recommendations by RD: Protein Supplementation, PPN/TPN Comments: Pt is at high risk of malnutrition due to prolonged vomiting leading to inadequate nutrient intake and hypermetabolic state secondary to acute inflammation. Recommendation: 1) Start PN/TPN per pharmacy 2) If GI is accessible, consider TF Pivot 1.5Cal @ 60ml/hr along with Pro-stat 1 pk TID. Start @ 10ml/hr, increase 10ml/hr Q4H until goal rate is reached. Advance TF rate slowly and gradually to prevent Refeeding syndrome. Water Flush 50ml Q4H if allowed. TF Provision --- TF at goal volume to provide 1440 ml total volume, 2160 kcal (+300 kcal via Pro-stat = 2460 kcal), 135 gm pro (+45 gm via ProStat = 180 gm), 1093 ml H20 (meets 100% est. kcal needs, 100% est. protein needs) 3) Monitor Potassium, Phosphate, Magnesium for Refeeding syndrome 4) Des 1 pk daily For DTI 5) Continue current plan of care Expected Outcomes/Goals: Blood glucose to improve Nutrient intake to meet at least 75% estimated needs FU 2-3 days Food and Nutrition Intake (Mod: <75% est energy req 7days Protein Calorie Malnutrition: Severe Plan discussed with: Other (ICU Nurse) ALDAIR YOUSSEF MD September 18, 2024 11:28
[2024-09-18] MEDS ORDERED: fentaNYL CITRATE 100 MCG/2 ML VL IV ONE (12:00)
[2024-09-18] MEDS ORDERED: MIDAZOLAM HCL 2MG/2ML 2ml VIAL (1mg/ml) IV ONE (12:00)
[2024-09-18] MEDS: fentaNYL CITRATE 100 MCG/2 ML VL IV ONE ×2 (13:12→13:17)
[2024-09-18] MEDS: MIDAZOLAM HCL 2MG/2ML 2ml VIAL (1mg/ml) IV ONE ×2 (13:12→13:17)
[2024-09-18] MEDS: ONDANSETRON HCL 4 MG/2 ML VIAL ONE (13:17)
[2024-09-18] MEDS: ONDANSETRON HCL 4 MG/2 ML VIAL IV ONE (13:17)
--- NOTE | 2024-09-18 13:45 | DVHOP2 ---
Operative Report - 2 Report Details Date: 09/18/24 Preop Diagnosis: CVA Postop Diagnosis: Cerebrovascular accident. Status post armida. Surgeon: Yazan Kidd MD Anesthesiologist: Conscious sedation Anesthesia: General, Mac (Versed and fentanyl given throughout the procedure. Patient monitored.) Consent: The patient was informed of the risks and benefits of the procedure. These include but are not limited to complications of anesthesia, postoperative infection, incomplete relief of symptoms, recurrence of symptoms, damage to blood vessels, nerves and tendons, deep venous thrombosis, pulmonary embolism and possible need for repeat surgery in the future. Complications: No complications. Findings: Normal transesophageal echo. Indications for Surgery: CVA. Name of Procedure Performed Transesophageal echocardiogram. Procedure Details Procedure Details: Prior full informed consent obtained patient was prepped and draped in the usual fashion placed in left lateral decubitus position. Transesophageal probe was passed without difficulty after conscious sedation given. Standard views obtained. Conclusions 1. Technically good study. Sinus rhythm. 2. Concentric LVH with mild left atrial enlargement. 3. Valves appear to be structurally normal. 4. Left ventricular systolic function is preserved at 60% with normal RV function. 5. There are no significant Doppler anomalies. No significant tricuspid mitral or aortic insufficiency. Pulmonic insufficiency was not visualized. 6. No pericardial effusion masses or vegetations discernible. 7. No intracardiac masses. No intra-atrial shunt. No VSD or ASD noted. 8. Bubble studies did not reveal intra-atrial shunting or crossover. Condition Guarded Disposition Still a Patient Date of Service: September 18, 2024 Billing Provider: YAZAN KIDD Sr., MD Cardiology Common Codes: PROCEDURE ONLY (Transesophageal echocardiogram.) Cardiology Procedure Codes: 75524-JFN W/IMG DOC INCL PROB ACQ YAZAN KIDD Sr., MD September 18, 2024 13:44
--- NOTE | 2024-09-18 16:20 | DVH ---
EXAM: XR Abdomen, 1 View CLINICAL INDICATION: Position of the dobhoff tube TECHNIQUE: Frontal supine view of the abdomen/pelvis. COMPARISON: XY KUB ABDOMEN SINGLE VIEW on DOS: 09/13/24, XY KUB ABDOMEN SINGLE VIEW on DOS: 09/04/24, XY KUB ABDOMEN SINGLE VIEW on DOS: 08/31/24, XY KUB ABDOMEN SINGLE VIEW on DOS: 08/29/24, XY KUB ABDOME N SINGLE VIEW on DOS: 08/26/24 FINDINGS: GASTROINTESTINAL TRACT: Unremarkable. No dilation. BONES/JOINTS: Unremarkable. No acute fracture. TUBES, LINES AND DEVICES: Enteric tube is in the stomach. OTHER FINDINGS: . IMPRESSION: Enteric tube is in the stomach.
--- NOTE | 2024-09-18 17:48 | DVHPNRES ---
Progress Note Date Seen: September 18, 2024 Resident Creating Document: ELIO SANTOS RESIDENT Has the PT tested + for MRSA If YES, has PT been informed?: No Medical Necessity Reason Pt with a Central, PICC or Fol: Yes The following are medically ne: Central Line, Chavez Catheter Reason for chavez catheter: Strict I&O Subjective Review of Systems Patient seen and examined on the bedside He is alert, more arousable and oriented He is on trach collar trial with 8L O2 . MRI of head demonstrated Acute infarction within the right cerebellar hemisphere measuring 3.2 x 0.7 cm. Left frontoparietal increased T2 signal with mild diffusion restriction signal. This could represent subacute infarct or underlying mass/lesion. Neurology evaluated the patient and recommended ARMIDA for possible identification of the source of the emboli for ischemic stroke. EEG demonstrated borderline normal EEG and no focal lateralized or epileptiform features noted. Patient underwent armida today and revealed there are no significant Doppler anomalies. No significant tricuspid mitral or aortic insufficiency. Pulmonic insufficiency was not visualized. No pericardial effusion masses or vegetations discernible. No intracardiac masses. No intra-atrial shunt. No VSD or ASD noted. Bubble studies did not reveal intra-atrial shunting or crossover. Objective vital signs Vital Sign Date Time Temp Pulse Resp B/P (MAP) Pulse Ox O2 Delivery O2 Flow Rate FiO2 09/18/24 17:00 106 20 163/89 (113) 98 09/18/24 16:30 8.0 35 09/18/24 16:00 99.2 99.2 09/18/24 16:00 Trach Collar Total Intake and Output 09/17/24 09/17/24 09/18/24 15:00 23:00 07:00 Intake Total 275 ml 1290 ml 691 ml Output Total 1665 ml 1160 ml Balance 275 ml -375 ml -469 ml medications Current Medications Medications Dose Ordered Sig/Nikki Route Start Time Stop Time Status Last Admin Dose Admin Diagnostic Test (Pha) 1 strip ACHS 08/19/24 17:00 Cancel Norepinephrine Bitartrate 250 ml @ 3.75 mls/hr Q24H IV 08/19/24 17:15 Cancel Ipratropium [place] 0.5 mg Q6HR NEB 08/19/24 18:00 09/18/24 11:24 0.5 MG Albuterol 2.5 mg Q6HR NEB 08/19/24 18:00 09/18/24 11:23 2.5 MG Acetaminophen 650 mg Q6HP PRN [place] 08/21/24 01:45 08/23/24 03:36 650 MG Epoetin Aquil[place]-epbx 10,000 unit TUTHSA@2100 [place] 08/26/24 21:00 09/13/24 00:02 10,000 UNIT Albumin Human 100 ml @ 100 mls/hr PRN PRN IV 08/26/24 06:45 08/27/24 07:45 100 MLS/HR Norepinephrine Bitartrate 32 mg/ Sodium Chloride 250 ml @ 0.469 mls/ hr Q24H IV 08/27/24 13:00 09/06/24 01:01 0.469 MLS/HR Heparin Sodium (Porcine) 5,000 units Q12HR SC 08/31/24 22:00 09/18/24 09:48 5,000 UNITS Sodium Chloride 10 ml QSHIFT@10,22 IV 08/31/24 22:00 09/18/24 09:47 10 ML Artificial Tears 2 drop Q4HR PRN EACHEYE 09/02/24 10:45 09/14/24 21:59 2 DROP Dextrose 50 ml UD PRN IV 09/03/24 21:00 Hydralazine HCl 50 mg Q8HR PRN PO 09/05/24 09:15 09/18/24 11:13 50 MG Hydralazine HCl 20 mg Q6HP PRN IV 09/08/24 11:45 09/18/24 06:51 20 MG Enteral Nutritional Formula 1,000 ml 60ML/HR GT 09/08/24 22:15 09/16/24 20:08 1,000 ML Insulin Human Regular AC SC 09/09/24 07:00 09/18/24 06:14 6 UNITS Diagnostic Test (Pha) 1 strip ACHS 09/09/24 07:00 09/18/24 17:18 1 STRIP Aspirin 81 mg DAILY PO 09/12/24 10:00 09/18/24 09:43 81 MG Clopidogrel Bisulfate 75 mg DAILY PO 09/12/24 10:00 09/18/24 09:43 75 MG Atorvastatin Calcium 80 mg HS PO 09/12/24 22:00 09/17/24 21:12 80 MG Vancomycin HCl 0 ml @ 0 mls/hr UD IV 09/14/24 14:15 Pantoprazole Sodium 40 mg DAILY IV 09/15/24 08:15 09/18/24 09:42 40 MG Lorazepam 1 mg ONCE PRN IV 09/16/24 10:45 Purified Water 200 ml QID GT 09/16/24 18:00 09/18/24 11:25 200 ML Vancomycin HCl 200 ml @ 200 mls/hr Q18H IV 09/16/24 22:00 09/18/24 09:47 200 MLS/HR Amlodipine Besylate 10 mg DAILY PO 09/18/24 10:00 09/18/24 09:44 10 MG Insulin Glargine 25 units HS SC 09/18/24 08:30 09/18/24 09:10 25 UNITS Metoclopramide HCl 5 mg Q8HR IV 09/18/24 22:00 UNV Examination Examination: Constitutional: Patient is alert, arousable and oriented Gen - mild conjuctival pallor, no icterus, no cyanosis, no clubbing, no LAD, 1+ edema in the feet . Skin - Patients skin is warm and dry. HEENT - normocephalic, atraumatic, moist mucous membranes. Neck - full ROM, no LAD, no jvd Pulmonary - B/L air entry present, diffuse rales, no wheezing, no stridor. cardiovascular - regular S1,S2 heard, no added sounds, no murmurs heard. GI - soft abdomen. no hepatospleenomegaly. bowel sounds hypoactive sacrum- ulcer seen , stage 3 ulcer with bloody oozing in gluteal fold Neurological - Strength at 5/5 X3 ext, Normal tone, Sensation intact, grossly intact cranial nerves laboratory and microbiology Laboratory Tests 09/18/24 03:00 Test 09/18/24 03:00 Range/Units Serum Glucose 249 H 74-106 mg/dL Microbiology Date/Time Source Procedure Growth Status 09/16/24 16:00 Sputum Gram Stain - Final Resulted 09/16/24 16:00 Sputum Respiratory Culture - Preliminary Resulted 09/10/24 10:47 Catheter Tip Other Aerobic Culture - Final Complete 09/04/24 10:19 Blood Blood Culture - Final NO GROWTH AFTER 5 DAYS OF INCUBATION. Complete 08/31/24 14:00 Urine - [place] Urine Culture - Final Complete Labs and/or images reviewed: Labs reviewed by me, Image(s) reviewed by me Problem List/Assessment/Plan Problem List/Assessment/Plan Assessment and plan: Neurology Acute ischemic stroke in the rt cerebellar hemisphere and Left frontoparietal Acute metabolic encephalopathy likely due to sepsis/HHS - MRI demonstrated Acute infarction within the right cerebellar hemisphere measuring 3.2 x 0.7 cm. Left frontoparietal increased T2 signal with mild diffusion restriction signal. This could represent subacute infarct or underlying mass/lesion. - on mechanical ventilation - S/P tracheostomy - Patient passed the window period of tPA therapy for ischemic stroke and also he has a recent history of GI bleeding in 1 week. - Continue aspirin 81 mg daily, clopidogrel 75 mg daily and atorvastatin 80 mg at HS - Neurology evaluated the patient and recommended ARMIDA for possible identification of the source of the emboli for ischemic stroke. EEG demonstrated borderline normal EEG and no focal lateralized or epileptiform features noted. - Patient underwent ARMIDA today and revealed there are no significant Doppler anomalies. No significant tricuspid mitral or aortic insufficiency. Pulmonic insufficiency was not visualized. No pericardial effusion masses or vegetations discernible. No intracardiac masses. No intra-atrial shunt. No VSD or ASD noted. Bubble studies did not reveal intra-atrial shunting or crossover Respiratory Acute hypoxic respiratory failure Probable aspiration pneumonia ARDS - S/P tracheostomy and on trach collar trial with 8L O2 - chest x-ray shows bilateral patchy opacities - ABG compensated - duonebs q6hr - IV antibiotics Vancomycin - sputum culture showed growth of yeast Cardiovascular Shock due to sepsis possibly from aspiration Acute on chronic heart failure with reduced ejection fraction Hypertensive heart disease - echo showed LVEF60% on 09/16 - Amlodipine 10 mg po daily. Infectious disease Septic shock likely due to aspiration pneumonia Infected Sacral ulcer, unstageable pressure ulcer - on IV antibiotics - culture from sacral ulcer growing enterococcus - blood culture showed no growth - on Vancomycin Nephrology Metabolic alkalosis likely from intractable vomiting, resolved KATE on CKD likely due to be VMN from dehydration - Last dialysis on 09/07/24 and hold off dialysis per nephrology. - urine output improved - Free water 200 ml QID - Epotein alpha-epbx per protocol GI ?Gastroparesis ?Upper GI bleed - KUB shows nonobstructive bowel gas pattern - IV Protonix daily - 4 units of PRBC given, H&H stable - GI on board - CT with PO contrast showed no obstruction. - FOBT positive - Patient accidentally pulled out [place]obb[place] and again repositioned and post placement abdominal x-ray revealed [place] in the stomach - NPO - IV reglan 5 mg q8hr. Endocrinology Uncontrolled diabetes mellitus with a hyperglycemia Morbid obesity - on insulin sliding scale - lantus 20 unit HS Skin - stage III big ulcer in the sacral area covered with eschar - Surgery mentioned patient does not need debridement now because no fluctuation or discharge. Diet: NPO DVT prophylaxis: heparin Left upper arm PICC placed on 08/31 Chavez's catheter placed on 09/09/24 Goals of care discussed with the patient's sister Sheree for over 27 mins. Full code Critical care time spent 73 minutes includes trach collar trial Plan discussed with Dr. Beck Plan discussed with: Patient, Other (Sister, RN) My Orders My Orders Orders - ELIO SANTOS RESIDENT Procedure Category Date Status Time Chest Portable XY 09/18/24 Resulted 04:00 Insulin Lantus PHA 09/18/24 In Process (Glargine) (Lantus) 08:30 Abg W/ Co-Ox RT 09/18/24 Logged 08:29 * Picc Line Consult CONS 09/18/24 Transmitted 13:51 Kub Abdomen Single XY 09/18/24 Resulted View 15:39 Metoclopramide PHA 09/18/24 Logged Injection (Reglan 22:00 Metoclopramide PHA 09/18/24 Logged Injection (Reglan 17:30 Dietary Evaluation Review Recommendations by RD: Protein Supplementation, PPN/TPN Comments: Pt is at high risk of malnutrition due to prolonged vomiting leading to inadequate nutrient intake and hypermetabolic state secondary to acute inflammation. Recommendation: 1) Start PN/TPN per pharmacy 2) If GI is accessible, consider TF Pivot 1.5Cal @ 60ml/hr along with Pro-stat 1 pk TID. Start @ 10ml/hr, increase 10ml/hr Q4H until goal rate is reached. Advance TF rate slowly and gradually to prevent Refeeding syndrome. Water Flush 50ml Q4H if allowed. TF Provision --- TF at goal volume to provide 1440 ml total volume, 2160 kcal (+300 kcal via Pro-stat = 2460 kcal), 135 gm pro (+45 gm via ProStat = 180 gm), 1093 ml H20 (meets 100% est. kcal needs, 100% est. protein needs) 3) Monitor Potassium, Phosphate, Magnesium for Refeeding syndrome 4) Des 1 pk daily For DTI 5) Continue current plan of care Expected Outcomes/Goals: Blood glucose to improve Nutrient intake to meet at least 75% estimated needs FU 2-3 days Food and Nutrition Intake (Mod: <75% est energy req 7days Protein Calorie Malnutrition: Severe ELIO SANTOS RESIDENT September 18, 2024 17:48
[2024-09-18] MEDS: METOCLOPRAMIDE HCL 5MG/ml INJ 2ml VIAL IV ONE (18:12)
[2024-09-18] MEDS: D5W/SOD CHL 0.45% 1,000 ML IV SCH (20:15)
--- NOTE | 2024-09-18 20:27 | DVHPN2 ---
Progress Note - Dictate Date Seen: September 18, 2024 Has the PT tested + for MRSA If YES, has PT been informed?: No Medical Necessity Reason Pt with a Central, PICC or Fol: Yes The following are medically ne: Central Line, Chavez Catheter Reason for chavez catheter: Strict I&O Subjective Mr. Moore is a 44 years old right-handed gentleman with a history of diabetes, kidney failure once on hemodialysis, obesity, the patient was brought to the hospital on 08/19/2024 by the family for altered mental status. I have seen and examined the patient, I have discussed with his nurse, he was physically stronger, he is not happy because he fells as if he is in the group home. The right arm still very weak He and his sister declined MRI scan Blood culture, 08/31/2024: Staphylococcus epidermidis, Staphylococcus hominis Stool occult blood, 09/07/2024: Positive UDS, 08/19/2024: Negative Plasma alcohol, 08/19/2024: Normal Urinalysis, 08/19/2024: WBC: 16, urine leukocyte esterase: Trace ABG 08/19/2024: Respiratory c acidosis WBC/HB/PLT/MCV, 08/19/2024: 37.8/14.8/159/86.1 08/25/2024: 34.8/7.7/180/89.5, 09/11/2024:17.2/10/635/86.8 PT/INR/PTT, 09/10/2024: 12.8/1.23/24.9 Na, 08/19/24: 114, 08/20/24: 123, 08/26/24: 134 BUN/CR, 08/19/2024: 112/8.94, 09/09/2024: 82/2.79, 09/11/2024: 81/2.42 HCO3, 08/19/2024: >40, 17, 08/20/2024: 37 Anion gap, 08/19/2024: 22.9999 Beta hydroxybutyric acid, 08/19/2024: 0.498 Lactic acid, 08/19/2024: 5.7, 4.6 HGB A1c, 08/19/2024: 11.7 Liver function tests, 09/07/2024: Unremarkable TG/HDL/LDL/HDL, 09/11/2024: 351/200/134/21 EEG, 09/13/2024: Borderline Carotid Doppler, 09/11/2024: No evidence of hemodynamically significant stenosis in the carotid arteries CT head, 09/11/2024: 1. Findings consistent with acute or subacute left MCA territory infarct. 2. No evidence of acute intracranial hemorrhage. 3. Partial opacification of the mastoid air cells bilaterally, likely effusions. Correlate clinically to exclude mastoiditis. CT head, 09/11/2024: Acute infarction within the right cerebellar hemisphere measuring 3.2 x 0.7 cm. Less pronounced diffusion restriction signal within the left frontoparietal lobe vital signs Vital Sign Date Time Temp Pulse Resp B/P (MAP) Pulse Ox O2 Delivery O2 Flow Rate FiO2 09/18/24 18:26 104 25 99 09/18/24 18:26 158/88 09/18/24 18:25 Trach Collar 8 35 35 09/18/24 16:00 99.2 99.2 Total Intake and Output 09/17/24 09/17/24 09/18/24 15:00 23:00 07:00 Intake Total 275 ml 1290 ml 691 ml Output Total 1665 ml 1160 ml Balance 275 ml -375 ml -469 ml medications Current Medications Medications Dose Ordered Sig/Nikki Route Start Time Stop Time Status Last Admin Dose Admin Diagnostic Test (Pha) 1 strip ACHS 08/19/24 17:00 Cancel Norepinephrine Bitartrate 250 ml @ 3.75 mls/hr Q24H IV 08/19/24 17:15 Cancel Ipratropium [place] 0.5 mg Q6HR NEB 08/19/24 18:00 09/18/24 18:19 0.5 MG Albuterol 2.5 mg Q6HR NEB 08/19/24 18:00 09/18/24 18:19 2.5 MG Acetaminophen 650 mg Q6HP PRN [place] 08/21/24 01:45 08/23/24 03:36 650 MG Epoetin [place]il[place]-epbx 10,000 unit TUTHSA@2100 SC 08/26/24 21:00 09/13/24 00:02 10,000 UNIT Albumin Human 100 ml @ 100 mls/hr PRN PRN IV 08/26/24 06:45 08/27/24 07:45 100 MLS/HR Norepinephrine Bitartrate 32 mg/ Sodium Chloride 250 ml @ 0.469 mls/ hr Q24H IV 08/27/24 13:00 09/06/24 01:01 0.469 MLS/HR Heparin Sodium (Porcine) 5,000 units Q12HR SC 08/31/24 22:00 09/18/24 09:48 5,000 UNITS Sodium Chloride 10 ml QSHIFT@10,22 IV 08/31/24 22:00 09/18/24 09:47 10 ML Artificial Tears 2 drop Q4HR PRN EACHEYE 09/02/24 10:45 09/14/24 21:59 2 DROP Dextrose 50 ml UD PRN IV 09/03/24 21:00 Hydralazine HCl 50 mg Q8HR PRN PO 09/05/24 09:15 09/18/24 11:13 50 MG Hydralazine HCl 20 mg Q6HP PRN IV 09/08/24 11:45 09/18/24 18:26 20 MG Enteral Nutritional Formula 1,000 ml 60ML/HR GT 09/08/24 22:15 09/16/24 20:08 1,000 ML Insulin Human Regular AC SC 09/09/24 07:00 09/18/24 06:14 6 UNITS Diagnostic Test (Pha) 1 strip ACHS 09/09/24 07:00 09/18/24 17:18 1 STRIP Aspirin 81 mg DAILY PO 09/12/24 10:00 09/18/24 09:43 81 MG Clopidogrel Bisulfate 75 mg DAILY PO 09/12/24 10:00 09/18/24 09:43 75 MG Atorvastatin Calcium 80 mg HS PO 09/12/24 22:00 09/17/24 21:12 80 MG Vancomycin HCl 0 ml @ 0 mls/hr UD IV 09/14/24 14:15 Pantoprazole Sodium 40 mg DAILY IV 09/15/24 08:15 09/18/24 09:42 40 MG Lorazepam 1 mg ONCE PRN IV 09/16/24 10:45 Purified Water 200 ml QID GT 09/16/24 18:00 09/18/24 11:25 200 ML Vancomycin HCl 200 ml @ 200 mls/hr Q18H IV 09/16/24 22:00 09/18/24 09:47 200 MLS/HR Amlodipine Besylate 10 mg DAILY PO 09/18/24 10:00 09/18/24 09:44 10 MG Insulin Glargine 25 units HS SC 09/18/24 08:30 09/18/24 09:10 25 UNITS Metoclopramide HCl 5 mg Q8HR IV 09/18/24 22:00 Dextrose/Sodium Chloride 1,000 ml @ 75 mls/hr [id number] IV 09/18/24 19:15 09/18/24 20:15 75 MLS/HR objective The patient is well-nourished and well-developed with no distress. MENTAL STATUS: Subjective CRANIAL NERVES: Pupils are round and reactive, with a right side slightly bigger when the pupils are dilated. There are spontaneous blinking and possible conjugated eye movement. No signs of facial weakness. There are gagging or coughing reflexes SENSATION: Okay to pinprick and light touch. MOTOR: Normal tone in the upper and lower extremity. Normal muscle bulk. No fasciculations. Muscle power in the arms: Left: 3/5, right: Elbow, hand: 2- 3/5, shoulder: 1/5. Muscle power in the legs: 4/5, REFLEXES: Deep tendon reflexes are symmetrical. No pathological reflexes. CEREBELLAR/COORDINATION: Deferred GAIT/STATION: deferred laboratory and microbiology Laboratory Tests 09/18/24 03:00 Test 09/18/24 03:00 Range/Units Serum Glucose 249 H 74-106 mg/dL Problem List New right upper extremity weakness, to rule out new stroke Left hemisphere stroke Right cerebellum hemispheres stroke Altered mental status Metabolic encephalopathy Hypoxic encephalopathy Toxic encephalopathy Uncontrolled diabetes Acidosis Sepsis, septic shock Urinary tract infection Pneumonia Kidney failure Respiratory failure ICU myopathy Intermittently anisocoria, uncertain clinical significance Assessment/Plan Monitoring Supportive treatment Follow-up MR brain, declined ESTHER ICU care Stabilize vitals/pressor drip Respiratory support/vent management Oxygen Antibiotics Lipitor 80 mg daily Plavix 75 mg daily Aspirin 81 mg daily DVT prophylaxis/heparin subQ GI prophylaxis/Protonix More recommendation per clinical course This medical document was created using an electronic medical record system with [employer] dictation system. Although this document has been carefully reviewed, there may still be some phonetic and typographical errors. These areas are purely typographical due to imperfections of the software programs, and do not reflect any compromise in the patient's medical care Prognosis poor Dietary Evaluation Review Recommendations by RD: Protein Supplementation, PPN/TPN Comments: Pt is at high risk of malnutrition due to prolonged vomiting leading to inadequate nutrient intake and hypermetabolic state secondary to acute inflammation. Recommendation: 1) Start PN/TPN per pharmacy 2) If GI is accessible, consider TF Pivot 1.5Cal @ 60ml/hr along with Pro-stat 1 pk TID. Start @ 10ml/hr, increase 10ml/hr Q4H until goal rate is reached. Advance TF rate slowly and gradually to prevent Refeeding syndrome. Water Flush 50ml Q4H if allowed. TF Provision --- TF at goal volume to provide 1440 ml total volume, 2160 kcal (+300 kcal via Pro-stat = 2460 kcal), 135 gm pro (+45 gm via ProStat = 180 gm), 1093 ml H20 (meets 100% est. kcal needs, 100% est. protein needs) 3) Monitor Potassium, Phosphate, Magnesium for Refeeding syndrome 4) Des 1 pk daily For DTI 5) Continue current plan of care Expected Outcomes/Goals: Blood glucose to improve Nutrient intake to meet at least 75% estimated needs FU 2-3 days Food and Nutrition Intake (Mod: <75% est energy req 7days Protein Calorie Malnutrition: Severe Plan discussed with: Other CHRISTOPHE CHÁVEZ MD September 18, 2024 20:27
[2024-09-18] MEDS: METOCLOPRAMIDE HCL 5MG/ml INJ 2ml VIAL IV SCH (22:10)
[2024-09-19] VITALS (68 sets, daily range): BP systolic 134–185; BP diastolic 68–102; PULSE 6–115; RESP 10–27; TEMP 98.1–99.1; O2SAT 94–100
[2024-09-19 04:02] LABS: Basophils # (auto) 0.3 10 ^3/uL (0-0.2); Basophils % (auto) 1.2 % (0.0-2.0); Eosinophils # (auto) 0.3 10 ^3/uL (0-0.8); Eosinophils % (auto) 1.2 % (0.0-7.0); Hematocrit 34.5 % (41.0-53.0); Hemoglobin 11.3 g/dL (13.5-17.5); Lymphocytes % (auto) 12.8 % (10.0-50.0); Mean Corpuscular Hemoglobin 28.7 pg (28.0-32.0); Mean Corpuscular Hgb Conc. 32.6 g/dL (32.0-36.0); Mean Corpuscular Volume 87.8 fL (80.0-100.0); Monocytes # (auto) 1.4 10 ^3/uL (0-1.3); Neutrophils # (auto) 18.6 10 ^3/uL (1.6-8.6); Neutrophils % (auto) 78.8 % (37.0-80.0); Platelet Count (auto) 502 10^3/uL (140-450); Red Blood Cells 3.93 10^6/uL (4.5-5.90); Red Cell Distribution Width 15.7 % (11.8-14.3); White Blood Cell 23.6 10^3/uL (4.4-10.8)
[2024-09-19 04:11] LABS: Anion Gap 13 (5-15); Carbon Dioxide 22 mmol/L (20-31)
[2024-09-19 04:12] LABS: Calcium 9.9 mg/dL (8.7-10.4)
[2024-09-19] MEDS: hydrALAZINE HCL 20 MG/ML VL IV ONE (04:13)
[2024-09-19 04:17] LABS: BUN/Creatinine Ratio 21.4 (10.0-20.0)
[2024-09-19 04:22] LABS: Blood Urea Nitrogen 27 mg/dL (9-23); Chloride 114 mmol/L (98-107); Glucose 177 mg/dL (74-106); Potassium 3.1 mmol/L (3.5-5.1); Sodium 149 mmol/L (136-145)
[2024-09-19] MEDS: POTASSIUM CHL 20MEQ/100ML 100 ML IV SCH (05:01)
--- NOTE | 2024-09-19 05:32 | DVH ---
CHEST RADIOGRAPH Indication: S/P tracheostomy Technique: Single frontal view of the chest was obtained Comparison: XY CHEST PORTABLE on DOS: 09/18/24, XY CHEST PORTABLE on DOS: 09/17/24, XY CHEST PORTABLE o n DOS: 09/15/24 IMPRESSION: Tracheostomy tube tip at the thoracic inlet in satisfactory position. Left PICC line tip in the lilia on of the superior vena cava / cavoatrial junction. Weighted enteric tube tip is in the expected loca tion of the gastric fundus. Mild pulmonary vascular congestion.
--- NOTE | 2024-09-19 09:46 | DVHPN2 ---
Subjective Patient was a 44-year-old male with a past medical history of diabetes presented to the ER with a chief complaint of intractable vomitings and altered level of consciousness. According to the sister patient has been vomiting persistently for 7-10 days before coming to the hospital. She reports that he took a shot of Ozempic before the vomiting started. While in the ER patient was altered and was not able to protect his airways following which it was decided to intubate him and put him on mechanical ventilation. Before intubation when he was laid flat, had vomiting coffee-ground and aspirated. After intubation patient underwent bronchoscopy with removal of mucus plugs from left upper and left lower lung. Past medical history: Diabetes Past surgical history: Left foot surgery Social history: Smokes 1 pack of cigarettes per day, denied alcohol or any other drug use Home medications: ?? Patient seen and examined on the bedside Sedated and on mechanical ventilation Patient is on trach tube and ventilation through the tube. MRI of head demonstrated Acute infarction within the right cerebellar hemisphere measuring 3.2 x 0.7 cm. Left frontoparietal increased T2 signal with mild diffusion restriction signal. This could represent subacute infarct or underlying mass/lesion. Reviewed: Care Plan, H&P, Labs, Medications, Previous Orders, Radiology, Other (Consultations) Changes from previous H/P or p: No Changes General: Per HPI Objective Vitals Vital Signs Date Time Temp Pulse Resp B/P (MAP) Pulse Ox O2 Delivery O2 Flow Rate FiO2 09/19/24 09:00 104 24 142/83 (102) 98 09/19/24 08:00 99.0 99.0 09/19/24 08:00 Trach Collar 8 30 30 Intake/Output Intake and Output 09/19/24 07:00 Intake Total 1540 ml Output Total 2215 ml Balance -675 ml Intake Oral 290 ml IV Total 1250 ml Tube Feeding 0 ml Output Urine Total 2200 ml Stool Total 15 ml Exam Constitutional: Patient is alert, arousable and oriented Gen - mild conjuctival pallor, no icterus, no cyanosis, no clubbing, no LAD, 1+ edema in the feet . Skin - Patients skin is warm and dry. HEENT - normocephalic, atraumatic, moist mucous membranes. Neck - full ROM, no LAD, no jvd Pulmonary - B/L air entry present, diffuse rales, no wheezing, no stridor. cardiovascular - regular S1,S2 heard, no added sounds, no murmurs heard. GI - soft abdomen. no hepatospleenomegaly. bowel sounds hypoactive sacrum- ulcer seen , stage 3 ulcer with bloody oozing in gluteal fold Neurological - Strength at 5/5 X3 ext, Normal tone, Sensation intact, grossly intact cranial nerves General Appearance: Other (Intubated and sedated) HEENT: Atraumatic Lungs: Other (Mechanical ventilation sounds) Cardiovascular: Normal S1, Normal S2, Other (Tachycardia) Abdomen: Normal bowel sounds, Soft Genitourinary: Other (Friedman's) Neuro: Other (Intubated and sedated) Psych/Mental Status: Other (Intubated and sedated) Medications Current Medications Medications Dose Ordered Sig/Nikki Route Start Time Stop Time Status Last Admin Dose Admin Diagnostic Test (Pha) 1 strip ACHS 08/19/24 17:00 Cancel Norepinephrine Bitartrate 250 ml @ 3.75 mls/hr Q24H IV 08/19/24 17:15 Cancel Acetaminophen 650 mg Q6HP PRN IA 08/21/24 01:45 08/23/24 03:36 650 MG Epoetin Aquilino-epbx 10,000 unit TUTHSA@2100 ME 08/26/24 21:00 09/13/24 00:02 10,000 UNIT Albumin Human 100 ml @ 100 mls/hr PRN PRN IV 08/26/24 06:45 08/27/24 07:45 100 MLS/HR Norepinephrine Bitartrate 32 mg/ Sodium Chloride 250 ml @ 0.469 mls/ hr Q24H IV 08/27/24 13:00 09/06/24 01:01 0.469 MLS/HR Heparin Sodium (Porcine) 5,000 units Q12HR SC 08/31/24 22:00 09/19/24 08:20 5,000 UNITS Sodium Chloride 10 ml QSHIFT@10,22 IV 08/31/24 22:00 09/18/24 22:08 10 ML Artificial Tears 2 drop Q4HR PRN EACHEYE 09/02/24 10:45 09/14/24 21:59 2 DROP Dextrose 50 ml UD PRN IV 09/03/24 21:00 Hydralazine HCl 50 mg Q8HR PRN PO 09/05/24 09:15 5/16/25 11:13 50 MG Hydralazine HCl 20 mg Q6HP PRN IV 09/08/24 11:45 09/19/24 01:22 20 MG Enteral Nutritional Formula 1,000 ml 60ML/HR GT 09/08/24 22:15 09/16/24 20:08 1,000 ML Insulin Human Regular AC SC 09/09/24 07:00 09/19/24 06:20 3 UNITS Diagnostic Test (Pha) 1 strip ACHS 09/09/24 07:00 09/19/24 06:19 1 STRIP Aspirin 81 mg DAILY PO 09/12/24 10:00 09/18/24 09:43 81 MG Clopidogrel Bisulfate 75 mg DAILY PO 09/12/24 10:00 09/18/24 09:43 75 MG Atorvastatin Calcium 80 mg HS PO 09/12/24 22:00 09/17/24 21:12 80 MG Vancomycin HCl 0 ml @ 0 mls/hr UD IV 09/14/24 14:15 Pantoprazole Sodium 40 mg DAILY IV 09/15/24 08:15 09/19/24 08:19 40 MG Lorazepam 1 mg ONCE PRN IV 09/16/24 10:45 Purified Water 200 ml QID GT 09/16/24 18:00 09/18/24 11:25 200 ML Vancomycin HCl 200 ml @ 200 mls/hr Q18H IV 09/16/24 22:00 09/19/24 04:34 200 MLS/HR Amlodipine Besylate 10 mg DAILY PO 09/18/24 10:00 09/18/24 09:44 10 MG Insulin Glargine 25 units HS SC 09/18/24 08:30 09/18/24 22:09 25 UNITS Metoclopramide HCl 5 mg Q8HR IV 09/18/24 22:00 09/19/24 05:19 5 MG Dextrose/Sodium Chloride 1,000 ml @ 75 mls/hr [id number] IV 09/18/24 19:15 09/18/24 20:15 75 MLS/HR Laboratory Results Laboratory Tests 09/19/24 03:00 Chemistry Test 09/19/24 03:00 09/19/24 04:47 Calcium Level 9.9 mg/dL (8.7-10.4) Magnesium Level 1.9 mg/dL (1.6-2.6) Urinalysis Test 08/19/24 11:25 09/09/24 15:20 Urine Renal Epithelial Cells Few /hpf (None Seen) Urine Amorphous Crystals Few /hpf (None Seen) Urine Mucus Few (None Seen) Urine Sperm Present /hpf (None Seen) Urine Creatinine 77.13 mg/dL (30.0-125.0) Urine Sodium 15 mmol/L (40-220) L Urine Color Light-yellow (Yellow) Urine Clarity Clear (Clear) Urine pH 5.5 (5.0-9.0) Urine Specific [place] 1.015 (1.001-1.035) Urine Protein 1+ (Negative) H Urine Ketones Negative (Negative) Urine Blood 2+ /uL (Negative) H Urine Nitrite Negative (Negative) Urine Bilirubin Negative (Negative) Urine Urobilinogen Normal mg/dL (Negative) Urine Leukocyte Esterase Trace /uL (Negative) Urine RBC 62 /hpf (0 - 3) Urine Microscopic WBC 5 /HPF (0-3) H Urine Squamous Epithelial Cells Few /hpf (<5) Urine Bacteria None seen /hpf (None Seen) Urine Hyaline Casts Few /lpf (0 - 2) Urine Glucose 1+ mg/dL (Normal) H Microbiology Microbiology Date/Time Source Procedure Growth Status 09/16/24 16:00 Sputum Gram Stain - Final Complete 09/16/24 16:00 Sputum Respiratory Culture - Final Complete 09/10/24 10:47 Catheter Tip Other Aerobic Culture - Final Complete 09/04/24 10:19 Blood Blood Culture - Final NO GROWTH AFTER 5 DAYS OF INCUBATION. Complete 08/31/24 14:00 Urine - Friedman Port Urine Culture - Final Complete Labs and/or images reviewed: Labs reviewed by me, Image(s) reviewed by me Assessment/Plan Assessment/Plan 09/12- Patient has Friedman good output, rectal tube with blood green stained bowel full, patient has a sacral wound and is high risk infectious. Patient did come with concern for GI bleed and was intubated for airway protection. Patient did also require bronch to remove plugs. Stay had complication of carotid dialysis which was repaired. CT head showed large strokes x2. Now patient is extubated.. Yesterday he passed trach collar trial is now on oxygen 7-8 L. Dobbhoff phos removed unintentionally this morning. Unable to give Plavix and amlodipine p.o.. We will try bedside swallow by RN and hope for FRAMEWORK DEVELOPER today. If doing well with bedside swallow can try clear liquid diet and meds with diet. Patient wants step-down on trach collar size and voice box defer to surgery. We will be unable to do bedside swallow the FRAMEWORK DEVELOPER, waiting for FRAMEWORK DEVELOPER.. Blood pressure uncontrolled, unable to give p.o. meds, we will give 1st line hydralazine IV, second-line labetalol IV to control blood pressure until patient can take p.o. meds. Neurology Acute ischemic stroke in the rt cerebellar hemisphere and Left frontoparietal Acute metabolic encephalopathy likely due to sepsis/HHS - MRI demonstrated Acute infarction within the right cerebellar hemisphere measuring 3.2 x 0.7 cm. Left frontoparietal increased T2 signal with mild diffusion restriction signal. This could represent subacute infarct or underlying mass/lesion. - on mechanical ventilation - S/P tracheostomy - Patient passed the window period of tPA therapy for ischemic stroke and also he has a recent history of GI bleeding in 1 week. - Continue aspirin 81 mg daily, clopidogrel 75 mg daily and atorvastatin 80 mg at HS - Neurology evaluated the patient and recommended ESTHER for possible identification of the source of the emboli for ischemic stroke. EEG demonstrated borderline normal EEG and no focal lateralized or epileptiform features noted. - Patient underwent ESTHER today and revealed there are no significant Doppler anomalies. No significant tricuspid mitral or aortic insufficiency. Pulmonic insufficiency was not visualized. No pericardial effusion masses or vegetations discernible. No intracardiac masses. No intra-atrial shunt. No VSD or ASD noted. Bubble studies did not reveal intra-atrial shunting or crossover Respiratory Acute hypoxic respiratory failure Probable aspiration pneumonia ARDS - S/P tracheostomy and on trach collar trial with 8L O2 - chest x-ray shows bilateral patchy opacities - ABG compensated - duonebs q6hr - IV antibiotics Vancomycin - sputum culture showed growth of yeast Cardiovascular Shock due to sepsis possibly from aspiration Acute on chronic heart failure with reduced ejection fraction Hypertensive heart disease - echo showed LVEF60% on 09/16 - Amlodipine 10 mg po daily. Infectious disease Septic shock likely due to aspiration pneumonia Infected Sacral ulcer, unstageable pressure ulcer - on IV antibiotics - culture from sacral ulcer growing enterococcus - blood culture showed no growth - on Vancomycin Nephrology Metabolic alkalosis likely from intractable vomiting, resolved KATE on CKD likely due to be VMN from dehydration - Last dialysis on 09/07/24 and hold off dialysis per nephrology. - urine output improved - Free water 200 ml QID - Epotein alpha-epbx per protocol GI ?Gastroparesis ?Upper GI bleed - KUB shows nonobstructive bowel gas pattern - IV Protonix daily - 4 units of PRBC given, H&H stable - GI on board - CT with PO contrast showed no obstruction. - FOBT positive - Patient accidentally pulled out Dobbhoff and again repositioned and post placement abdominal x-ray revealed Dobbhoff in the stomach - NPO - IV reglan 5 mg q8hr. Endocrinology Uncontrolled diabetes mellitus with a hyperglycemia Morbid obesity - on insulin sliding scale - lantus 20 unit HS Skin - stage III big ulcer in the sacral area covered with eschar - Surgery mentioned patient does not need debridement now because no fluctuation or discharge. Diet: NPO DVT prophylaxis: heparin Left upper arm PICC placed on 08/31 Friedman's catheter placed on 09/09/24 Plan discussed with: Other My Orders Orders - CUONG PENA MD Procedure Category Date Status Time Potassium Chl PHA 09/19/24 Logged 20meq/100ml 09:30 Date of Service: September 19, 2024 Billing Provider: CUONG PENA MD Common Visit Codes: [id number] 30-74 MIN CUONG PENA MD September 19, 2024 09:46
[2024-09-19] MEDS: POTASSIUM CHL 20MEQ/100ML 100 ML IV ONE (10:04)
[2024-09-19] MEDS ORDERED: LABETALOL HCL 20 MG/4 ML VL IV PRN (16:00)
[2024-09-19] MEDS ORDERED: hydrALAZINE HCL 20 MG/ML VL IV PRN (16:00)
[2024-09-19] MEDS ORDERED: MORPHINE SULFATE INJ 2 MG/ml SYRG IV PRN (16:00)
[2024-09-19] MEDS: hydrALAZINE HCL 20 MG/ML VL IV PRN (16:00)
[2024-09-19] MEDS: LABETALOL HCL 20 MG/4 ML VL IV PRN (17:36)
--- NOTE | 2024-09-19 19:16 | DVHPN2 ---
Progress Note - Dictate Date Seen: September 19, 2024 Has the PT tested + for MRSA If YES, has PT been informed?: No Medical Necessity Reason Pt with a Central, PICC or Fol: Yes The following are medically ne: Central Line, Chavez Catheter Reason for chavez catheter: Strict I&O Subjective Patient seen and examined at bedside. S/p trach, on supplemental oxygen Overnight events reviewed. vital signs Vital Sign Date Time Temp Pulse Resp B/P (MAP) Pulse Ox O2 Delivery O2 Flow Rate FiO2 09/19/24 19:04 99 Trach Collar 8.0 09/19/24 19:04 35 35 09/19/24 18:45 99.1 88 16 161/91 (114) 99.1 Total Intake and Output 09/18/24 09/18/24 09/19/24 15:00 23:00 07:00 Intake Total 300 ml 515 ml 800 ml Output Total 1205 ml 1010 ml Balance 300 ml -690 ml -210 ml medications Current Medications Medications Dose Ordered Sig/Nikki Route Start Time Stop Time Status Last Admin Dose Admin Diagnostic Test (Pha) 1 strip ACHS 08/19/24 17:00 Cancel Norepinephrine Bitartrate 250 ml @ 3.75 mls/hr Q24H IV 08/19/24 17:15 Cancel Acetaminophen 650 mg Q6HP PRN [place] 08/21/24 01:45 08/23/24 03:36 650 MG Epoetin Aquilino-epbx 10,000 unit TUTHSA@2100 [place] 08/26/24 21:00 Hold 09/13/24 00:02 10,000 UNIT Albumin Human 100 ml @ 100 mls/hr PRN PRN IV 08/26/24 06:45 08/27/24 07:45 100 MLS/HR Norepinephrine Bitartrate 32 mg/ Sodium Chloride 250 ml @ 0.469 mls/ hr Q24H IV 08/27/24 13:00 09/06/24 01:01 0.469 MLS/HR Heparin Sodium (Porcine) 5,000 units Q12HR SC 08/31/24 22:00 09/19/24 08:20 5,000 UNITS Sodium Chloride 10 ml QSHIFT@10,22 IV 08/31/24 22:00 09/19/24 10:11 10 ML Artificial Tears 2 drop Q4HR PRN EACHEYE 09/02/24 10:45 09/14/24 21:59 2 DROP Dextrose 50 ml UD PRN IV 09/03/24 21:00 Enteral Nutritional Formula 1,000 ml 60ML/HR GT 09/08/24 22:15 09/16/24 20:08 1,000 ML Insulin Human Regular AC SC 09/09/24 07:00 09/19/24 17:14 3 UNITS Diagnostic Test (Pha) 1 strip ACHS 09/09/24 07:00 09/19/24 17:14 1 STRIP Aspirin 81 mg DAILY PO 09/12/24 10:00 09/18/24 09:43 81 MG Clopidogrel Bisulfate 75 mg DAILY PO 09/12/24 10:00 09/18/24 09:43 75 MG Atorvastatin Calcium 80 mg HS PO 09/12/24 22:00 09/17/24 21:12 80 MG Vancomycin HCl 0 ml @ 0 mls/hr UD IV 09/14/24 14:15 Pantoprazole Sodium 40 mg DAILY IV 09/15/24 08:15 09/19/24 08:19 40 MG Lorazepam 1 mg ONCE PRN IV 09/16/24 10:45 Purified Water 200 ml QID GT 09/16/24 18:00 09/18/24 11:25 200 ML Vancomycin HCl 200 ml @ 200 mls/hr Q18H IV 09/16/24 22:00 09/19/24 04:34 200 MLS/HR Amlodipine Besylate 10 mg DAILY PO 09/18/24 10:00 09/18/24 09:44 10 MG Insulin Glargine 25 units HS SC 09/18/24 08:30 09/18/24 22:09 25 UNITS Metoclopramide HCl 5 mg Q8HR IV 09/18/24 22:00 09/19/24 14:45 5 MG Dextrose/Sodium Chloride 1,000 ml @ 75 mls/hr [id number] IV 09/18/24 19:15 09/19/24 10:10 75 MLS/HR Morphine Sulfate 2 mg Q4HPRN PRN IV 09/19/24 16:00 Hydralazine HCl 20 mg Q4HPRN PRN IV 09/19/24 16:15 09/19/24 16:00 20 MG Labetalol HCl 10 mg Q6HPRN PRN IV 09/19/24 16:15 09/19/24 17:36 10 MG objective Gen.: Patient lying in bed in no apparent distress. On supplemental oxygen via trach collar. Head: Normocephalic, atraumatic. Eyes: EOMI/PERRLA. Ears: Normal hearing. Normal anatomy. Neck/trachea: S/p trach. Nose: Normal external anatomy. Mouth: Moist mucous membranes. Chest: Decreased air entry bilaterally. No wheezing or rhonchi. Cardiovascular: Positive S1, positive S2. Regular rate and rhythm. Abdomen: Positive bowel sounds in all 4 quadrants. Soft, non-tender, non- distended. : Deferred. Rectal: Deferred. Skin: Warm, dry. Intact. Extremities: 2+ radial pulses bilaterally. No lower extremity edema. Neuro: Awake, alert, oriented x3. No gross motor or sensory deficits. Cranial nerves II through XII intact. Gait not assessed. laboratory and microbiology Laboratory Tests 09/19/24 03:00 Test 09/19/24 03:00 Range/Units Serum Glucose 177 H 74-106 mg/dL Assessment/Plan Impression: Acute hypoxic respiratory failure On mechanical ventilator Gastrointestinal hemorrhage, upper Aspiration pneumonia MAGDALENA mucous plug Obesity BMI 35.9 s/p tracheostomy Events: S/p trach On 8 LPM via trach collar, Fio2 30% Trach care per RT Pulled NGT Awaiting swallow eval. Continue antibiotics Monitor hemoglobin Monitor renal function Monitor electrolytes. Supplement as necessary. Monitor ins and outs Accu-Cheks, ISS S/p vascular surgery for carotid repair. S/p bronchoscopy w/ BAL on 08/23/24 -cleared mucous plugging from L1-L10 and R1- R10 S/p therapeutic bronchoscopy on 08/19/24 with clearing of mucous plugging. Aspirated coffee ground material removed from within the bilateral lungs. See separate procedure notes for details. Chest x-ray reviewed Labs and imaging reviewed. Rest of plan as noted below Plan: s/p trach On cool aerosol via trach collar Titrate to keep sats above 92% Trach care Continue antibiotics. Pressors as necessary for hemodynamic support Titrate to keep mean arterial pressure greater than 65 mmHg. Monitor hemoglobin GI recs appreciated TPN for nutritional support HD per Nephrology Monitor renal function Monitor electrolytes. Supplement as necessary. Monitor ins and outs. Accu-Cheks, ISS GI prophylaxis - Protonix. DVT prophylaxis - Lovenox. Prognosis: Poor given patient's multiple co-morbidities. Condition: Critical Rest of plan per hospitalist and other consultants. A total of 35 minutes of critical care time was spent reviewing the patient record, examining the patient, making a diagnostic and therapeutic plan, discussing this plan with the medical personnel, following up on diagnostic studies and following the patient for clinical stability excluding any and all procedures. At least 50% of this time was spent in direct, [id number] contact. Thank you, DEON Morrison, for allowing me to participate in this patient's care. Further recommendations will depend on the patient's clinical course. Please do not hesitate to contact me if you have any questions or concerns. This medical document was created using an electronic medical record system with iFormul[employer] dictation system. Although these documentations are being carefully reviewed, there may still be some phonetic and typographical changes. The errors are purely typographical, due to imperfection on the software program, and do not reflect any compromise in the patient's medical care. Dietary Evaluation Review Recommendations by RD: Protein Supplementation, PPN/TPN Comments: Pt is at high risk of malnutrition due to prolonged vomiting leading to inadequate nutrient intake and hypermetabolic state secondary to acute inflammation. Recommendation: 1) Start PN/TPN per pharmacy 2) If GI is accessible, consider TF Pivot 1.5Cal @ 60ml/hr along with Pro-stat 1 pk TID. Start @ 10ml/hr, increase 10ml/hr Q4H until goal rate is reached. Advance TF rate slowly and gradually to prevent Refeeding syndrome. Water Flush 50ml Q4H if allowed. TF Provision --- TF at goal volume to provide 1440 ml total volume, 2160 kcal (+300 kcal via Pro-stat = 2460 kcal), 135 gm pro (+45 gm via ProStat = 180 gm), 1093 ml H20 (meets 100% est. kcal needs, 100% est. protein needs) 3) Monitor Potassium, Phosphate, Magnesium for Refeeding syndrome 4) Des 1 pk daily For DTI 5) Continue current plan of care Expected Outcomes/Goals: Blood glucose to improve Nutrient intake to meet at least 75% estimated needs FU 2-3 days Food and Nutrition Intake (Mod: <75% est energy req 7days Protein Calorie Malnutrition: Severe Plan discussed with: Other (MARYURI Olsen) Critical Care Time(min): 35 LINO CARRION MD September 19, 2024 19:16
[2024-09-20] VITALS (25 sets, daily range): BP systolic 131–178; BP diastolic 69–104; PULSE 84–106; RESP 9–23; TEMP 98.2–99.5; O2SAT 96–99
[2024-09-20 05:20] LABS: Mean Corpuscular Volume 89.2 fL (80.0-100.0)
[2024-09-20 05:22] LABS: Hematocrit 36.6 % (41.0-53.0); Hemoglobin 12.1 g/dL (13.5-17.5); Mean Corpuscular Hemoglobin 29.6 pg (28.0-32.0); Mean Corpuscular Hgb Conc. 33.2 g/dL (32.0-36.0); Platelet Count (auto) 483 10^3/uL (140-450); Red Cell Distribution Width 15.7 % (11.8-14.3); White Blood Cell 28.6 10^3/uL (4.4-10.8)
[2024-09-20 05:27] LABS: Basophils % (manual) 0 (0.0-2.0); Blast Cells 0; Metamyelocytes % 0; Myelocytes % 0; Promyelocytes % 0; Reactive Lymphocytes 0
[2024-09-20 05:47] LABS: Band Neutrophils % (manual) 4; Eosinophils % (manual) 2 (0-7); Lymphocytes % (manual) 10 (10.0-50.0); Monocytes % (manual) 4 (0-12)
[2024-09-20 05:48] LABS: Platelet Estimate Increased
--- NOTE | 2024-09-20 12:10 | DVHPN2 ---
Subjective Patient was a 44-year-old male with a past medical history of diabetes presented to the ER with a chief complaint of intractable vomitings and altered level of consciousness. According to the sister patient has been vomiting persistently for 7-10 days before coming to the hospital. She reports that he took a shot of Ozempic before the vomiting started. While in the ER patient was altered and was not able to protect his airways following which it was decided to intubate him and put him on mechanical ventilation. Before intubation when he was laid flat, had vomiting coffee-ground and aspirated. After intubation patient underwent bronchoscopy with removal of mucus plugs from left upper and left lower lung. Past medical history: Diabetes Past surgical history: Left foot surgery Social history: Smokes 1 pack of cigarettes per day, denied alcohol or any other drug use Home medications: ?? Patient seen and examined on the bedside Sedated and on mechanical ventilation Patient is on trach tube and ventilation through the tube. MRI of head demonstrated Acute infarction within the right cerebellar hemisphere measuring 3.2 x 0.7 cm. Left frontoparietal increased T2 signal with mild diffusion restriction signal. This could represent subacute infarct or underlying mass/lesion. Reviewed: Care Plan, H&P, Labs, Medications, Previous Orders, Radiology, Other (Consultations) Changes from previous H/P or p: No Changes General: Per HPI Objective Vitals Vital Signs Date Time Temp Pulse Resp B/P (MAP) Pulse Ox O2 Delivery O2 Flow Rate FiO2 09/20/24 10:09 176/97 09/20/24 09:24 96 Trach Collar 8 35 35 09/20/24 07:00 97 11 09/20/24 04:00 98.2 98.2 Intake/Output Intake and Output 09/20/24 07:00 Intake Total 2500 ml Output Total 2400 ml Balance 100 ml Intake Oral 0 ml IV Total 2500 ml Output Urine Total 2400 ml Exam Constitutional: Patient is alert, arousable and oriented Gen - mild conjuctival pallor, no icterus, no cyanosis, no clubbing, no LAD, 1+ edema in the feet . Skin - Patients skin is warm and dry. HEENT - normocephalic, atraumatic, moist mucous membranes. Neck - full ROM, no LAD, no jvd Pulmonary - B/L air entry present, diffuse rales, no wheezing, no stridor. cardiovascular - regular S1,S2 heard, no added sounds, no murmurs heard. GI - soft abdomen. no hepatospleenomegaly. bowel sounds hypoactive sacrum- ulcer seen , stage 3 ulcer with bloody oozing in gluteal fold Neurological - Strength at 5/5 X3 ext, Normal tone, Sensation intact, grossly intact cranial nerves General Appearance: Other (Intubated and sedated) HEENT: Atraumatic Lungs: Other (Mechanical ventilation sounds) Cardiovascular: Normal S1, Normal S2, Other (Tachycardia) Abdomen: Normal bowel sounds, Soft Genitourinary: Other (Friedman's) Neuro: Other (Intubated and sedated) Psych/Mental Status: Other (Intubated and sedated) Medications Current Medications Medications Dose Ordered Sig/Nikki Route Start Time Stop Time Status Last Admin Dose Admin Diagnostic Test (Pha) 1 strip ACHS 08/19/24 17:00 Cancel Norepinephrine Bitartrate 250 ml @ 3.75 mls/hr Q24H IV 08/19/24 17:15 Cancel Epoetin Aquilino-epbx 10,000 unit TUTHSA@2100 SC 08/26/24 21:00 Hold 09/13/24 00:02 10,000 UNIT Albumin Human 100 ml @ 100 mls/hr PRN PRN IV 08/26/24 06:45 08/27/24 07:45 100 MLS/HR Norepinephrine Bitartrate 32 mg/ Sodium Chloride 250 ml @ 0.469 mls/ hr Q24H IV 08/27/24 13:00 09/06/24 01:01 0.469 MLS/HR Heparin Sodium (Porcine) 5,000 units Q12HR SC 08/31/24 22:00 09/20/24 10:06 5,000 UNITS Sodium Chloride 10 ml QSHIFT@10,22 IV 08/31/24 22:00 09/20/24 10:07 10 ML Artificial Tears 2 drop Q4HR PRN EACHEYE 09/02/24 10:45 09/14/24 21:59 2 DROP Dextrose 50 ml UD PRN IV 09/03/24 21:00 Enteral Nutritional Formula 1,000 ml 60ML/HR GT 09/08/24 22:15 09/16/24 20:08 1,000 ML Insulin Human Regular AC SC 09/09/24 07:00 09/19/24 21:37 2 UNITS Diagnostic Test (Pha) 1 strip ACHS 09/09/24 07:00 09/20/24 06:20 1 STRIP Aspirin 81 mg DAILY PO 09/12/24 10:00 09/18/24 09:43 81 MG Clopidogrel Bisulfate 75 mg DAILY PO 09/12/24 10:00 09/18/24 09:43 75 MG Atorvastatin Calcium 80 mg HS PO 09/12/24 22:00 09/17/24 21:12 80 MG Vancomycin HCl 0 ml @ 0 mls/hr UD IV 09/14/24 14:15 Pantoprazole Sodium 40 mg DAILY IV 09/15/24 08:15 09/20/24 10:06 40 MG Lorazepam 1 mg ONCE PRN IV 09/16/24 10:45 Purified Water 200 ml QID GT 09/16/24 18:00 09/18/24 11:25 200 ML Vancomycin HCl 200 ml @ 200 mls/hr Q18H IV 09/16/24 22:00 09/19/24 21:38 200 MLS/HR Amlodipine Besylate 10 mg DAILY PO 09/18/24 10:00 09/18/24 09:44 10 MG Insulin Glargine 25 units HS SC 09/18/24 08:30 09/19/24 21:36 25 UNITS Metoclopramide HCl 5 mg Q8HR IV 09/18/24 22:00 09/20/24 06:19 5 MG Dextrose/Sodium Chloride 1,000 ml @ 75 mls/hr [id number] IV 09/18/24 19:15 09/20/24 07:56 75 MLS/HR Morphine Sulfate 2 mg Q4HPRN PRN IV 09/19/24 16:00 Hydralazine HCl 20 mg Q4HPRN PRN IV 09/19/24 16:15 09/20/24 10:09 20 MG Labetalol HCl 10 mg Q6HPRN PRN IV 09/19/24 16:15 09/20/24 02:57 10 MG Laboratory Results Laboratory Tests 09/19/24 03:00 09/20/24 05:01 Urinalysis Test 08/19/24 11:25 09/09/24 15:20 Urine Renal Epithelial Cells Few /hpf (None Seen) Urine Amorphous Crystals Few /hpf (None Seen) Urine Mucus Few (None Seen) Urine Sperm Present /hpf (None Seen) Urine Creatinine 77.13 mg/dL (30.0-125.0) Urine Sodium 15 mmol/L (40-220) L Urine Color Light-yellow (Yellow) Urine Clarity Clear (Clear) Urine pH 5.5 (5.0-9.0) Urine Specific [place] 1.015 (1.001-1.035) Urine Protein 1+ (Negative) H Urine Ketones Negative (Negative) Urine Blood 2+ /uL (Negative) H Urine Nitrite Negative (Negative) Urine Bilirubin Negative (Negative) Urine Urobilinogen Normal mg/dL (Negative) Urine Leukocyte Esterase Trace /uL (Negative) Urine RBC 62 /hpf (0 - 3) Urine Microscopic WBC 5 /HPF (0-3) H Urine Squamous Epithelial Cells Few /hpf (<5) Urine Bacteria None seen /hpf (None Seen) Urine Hyaline Casts Few /lpf (0 - 2) Urine Glucose 1+ mg/dL (Normal) H Microbiology Microbiology Date/Time Source Procedure Growth Status 09/16/24 16:00 Sputum Gram Stain - Final Complete 09/16/24 16:00 Sputum Respiratory Culture - Final Complete 09/10/24 10:47 Catheter Tip Other Aerobic Culture - Final Complete 09/04/24 10:19 Blood Blood Culture - Final NO GROWTH AFTER 5 DAYS OF INCUBATION. Complete 08/31/24 14:00 Urine - Friedman Port Urine Culture - Final Complete Labs and/or images reviewed: Labs reviewed by me, Image(s) reviewed by me Assessment/Plan Assessment/Plan Updates 09/19- Patient has Friedman good output, rectal tube with blood green stained bowel full, patient has a sacral wound and is high risk infectious. Patient did come with concern for GI bleed and was intubated for airway protection. Patient did also require bronch to remove plugs. Stay had complication of carotid dialysis which was repaired. CT head showed large strokes x2. Now patient is extubated.. Yesterday he passed trach collar trial is now on oxygen 7-8 L. Dobbhoff phos removed unintentionally this morning. Unable to give Plavix and amlodipine p.o.. We will try bedside swallow by RN and hope for [employer] today. If doing well with bedside swallow can try clear liquid diet and meds with diet. Patient wants step-down on trach collar size and voice box defer to surgery. We will be unable to do bedside swallow the [employer], waiting for [employer].. Blood pressure uncontrolled, unable to give p.o. meds, we will give 1st line hydralazine IV, second-line labetalol IV to control blood pressure until patient can take p.o. meds. 09/20-patient is seen bedside today, D OU room 265. Doing well. Able to swallow his own spit. Unable to get a subQ. Try again for today still NPO today goal to get [employer] respiratory to assess if swollen is safe to restart oral medications, holding off NG tube right now as patient is also declining NG tube. Blood pressure is elevated using yesterday's prn of hydralazine/labetalol to keep SBP < 160. No other changes for now and continue primary team's management. Patient is off any vasopressors and no known intubation, on oxygen humidified by trach collar but needs close monitoring. We will keep patient in D OU Neurology Acute ischemic stroke in the rt cerebellar hemisphere and Left frontoparietal Acute metabolic encephalopathy likely due to sepsis/HHS - MRI demonstrated Acute infarction within the right cerebellar hemisphere measuring 3.2 x 0.7 cm. Left frontoparietal increased T2 signal with mild diffusion restriction signal. This could represent subacute infarct or underlying mass/lesion. - on mechanical ventilation - S/P tracheostomy - Patient passed the window period of tPA therapy for ischemic stroke and also he has a recent history of GI bleeding in 1 week. - Continue aspirin 81 mg daily, clopidogrel 75 mg daily and atorvastatin 80 mg at HS - Neurology evaluated the patient and recommended ESTHER for possible identification of the source of the emboli for ischemic stroke. EEG demonstrated borderline normal EEG and no focal lateralized or epileptiform features noted. - Patient underwent ESTHER today and revealed there are no significant Doppler anomalies. No significant tricuspid mitral or aortic insufficiency. Pulmonic insufficiency was not visualized. No pericardial effusion masses or vegetations discernible. No intracardiac masses. No intra-atrial shunt. No VSD or ASD noted. Bubble studies did not reveal intra-atrial shunting or crossover Respiratory Acute hypoxic respiratory failure Probable aspiration pneumonia ARDS - S/P tracheostomy and on trach collar trial with 8L O2 - chest x-ray shows bilateral patchy opacities - ABG compensated - duonebs q6hr - IV antibiotics Vancomycin - sputum culture showed growth of yeast Cardiovascular Shock due to sepsis possibly from aspiration Acute on chronic heart failure with reduced ejection fraction Hypertensive heart disease - echo showed LVEF60% on 09/16 - Amlodipine 10 mg po daily. Infectious disease Septic shock likely due to aspiration pneumonia Infected Sacral ulcer, unstageable pressure ulcer - on IV antibiotics - culture from sacral ulcer growing enterococcus - blood culture showed no growth - on Vancomycin Nephrology Metabolic alkalosis likely from intractable vomiting, resolved KATE on CKD likely due to be VMN from dehydration - Last dialysis on 09/07/24 and hold off dialysis per nephrology. - urine output improved - Free water 200 ml QID - Epotein alpha-epbx per protocol GI ?Gastroparesis ?Upper GI bleed - KUB shows nonobstructive bowel gas pattern - IV Protonix daily - 4 units of PRBC given, H&H stable - GI on board - CT with PO contrast showed no obstruction. - FOBT positive - Patient accidentally pulled out Dobbhoff and again repositioned and post placement abdominal x-ray revealed Dobbhoff in the stomach - NPO - IV reglan 5 mg q8hr. Endocrinology Uncontrolled diabetes mellitus with a hyperglycemia Morbid obesity - on insulin sliding scale - lantus 20 unit HS Skin - stage III big ulcer in the sacral area covered with eschar - Surgery mentioned patient does not need debridement now because no fluctuation or discharge. Diet: NPO DVT prophylaxis: heparin Left upper arm PICC placed on 08/31 Friedman's catheter placed on 09/09/24 Plan discussed with: Other My Orders Orders - CUONG PENA MD Procedure Category Date Status Time Morphine Sulfate PHA 09/19/24 In Process Injection 16:00 Hydralazine Injection PHA 09/19/24 In Process (Apresoline Inject 16:15 Labetalol Hcl PHA 09/19/24 In Process (Labetalol Hcl) 16:15 Communication Order ORDERS 09/19/24 Transmitted 10:00 Date of Service: September 20, 2024 Billing Provider: CUONG PENA MD Common Visit Codes: [id number] CARE 30-74 MIN CUONG PENA MD September 20, 2024 12:10
--- NOTE | 2024-09-20 22:55 | DVHPN2 ---
Progress Note - Dictate Date Seen: September 20, 2024 Has the PT tested + for MRSA If YES, has PT been informed?: No Medical Necessity Reason Pt with a Central, PICC or Fol: Yes The following are medically ne: Central Line, Chavez Catheter Reason for chavez catheter: Strict I&O Subjective Patient seen and examined at bedside. S/p trach, on supplemental oxygen Overnight events reviewed. vital signs Vital Sign Date Time Temp Pulse Resp B/P (MAP) Pulse Ox O2 Delivery O2 Flow Rate FiO2 09/20/24 20:00 92 09/20/24 20:00 20 99 T-piece 6 30 30 09/20/24 20:00 99.5 160/101 (120) 99.5 Total Intake and Output 09/19/24 09/19/24 09/20/24 15:00 23:00 07:00 Intake Total 900 ml 1000 ml 600 ml Output Total 1200 ml 1200 ml Balance 900 ml -200 ml -600 ml medications Current Medications Medications Dose Ordered Sig/Nikki Route Start Time Stop Time Status Last Admin Dose Admin Diagnostic Test (Pha) 1 strip ACHS 08/19/24 17:00 Cancel Norepinephrine Bitartrate 250 ml @ 3.75 mls/hr Q24H IV 08/19/24 17:15 Cancel Epoetin Aquilino-epbx 10,000 unit TUTHSA@2100 [place] 08/26/24 21:00 Hold 09/13/24 00:02 10,000 UNIT Albumin Human 100 ml @ 100 mls/hr PRN PRN IV 08/26/24 06:45 08/27/24 07:45 100 MLS/HR Norepinephrine Bitartrate 32 mg/ Sodium Chloride 250 ml @ 0.469 mls/ hr Q24H IV 08/27/24 13:00 09/06/24 01:01 0.469 MLS/HR Heparin Sodium (Porcine) 5,000 units Q12HR SC 08/31/24 22:00 09/20/24 22:43 5,000 UNITS Sodium Chloride 10 ml QSHIFT@10,22 IV 08/31/24 22:00 09/20/24 22:44 10 ML Artificial Tears 2 drop Q4HR PRN EACHEYE 09/02/24 10:45 09/14/24 21:59 2 DROP Dextrose 50 ml UD PRN IV 09/03/24 21:00 Enteral Nutritional Formula 1,000 ml 60ML/HR GT 09/08/24 22:15 09/16/24 20:08 1,000 ML Insulin Human Regular AC SC 09/09/24 07:00 09/20/24 16:12 3 UNITS Diagnostic Test (Pha) 1 strip ACHS 09/09/24 07:00 09/20/24 22:00 1 STRIP Aspirin 81 mg DAILY PO 09/12/24 10:00 09/18/24 09:43 81 MG Clopidogrel Bisulfate 75 mg DAILY PO 09/12/24 10:00 09/18/24 09:43 75 MG Atorvastatin Calcium 80 mg HS PO 09/12/24 22:00 09/17/24 21:12 80 MG Vancomycin HCl 0 ml @ 0 mls/hr UD IV 09/14/24 14:15 Pantoprazole Sodium 40 mg DAILY IV 09/15/24 08:15 09/20/24 10:06 40 MG Lorazepam 1 mg ONCE PRN IV 09/16/24 10:45 Purified Water 200 ml QID GT 09/16/24 18:00 09/18/24 11:25 200 ML Vancomycin HCl 200 ml @ 200 mls/hr Q18H IV 09/16/24 22:00 09/20/24 16:00 200 MLS/HR Amlodipine Besylate 10 mg DAILY PO 09/18/24 10:00 09/18/24 09:44 10 MG Insulin Glargine 25 units HS SC 09/18/24 08:30 09/20/24 22:43 25 UNITS Metoclopramide HCl 5 mg Q8HR IV 09/18/24 22:00 09/20/24 22:42 5 MG Dextrose/Sodium Chloride 1,000 ml @ 75 mls/hr [id number] IV 09/18/24 19:15 09/20/24 22:46 75 MLS/HR Morphine Sulfate 2 mg Q4HPRN PRN IV 09/19/24 16:00 Hydralazine HCl 20 mg Q4HPRN PRN IV 09/19/24 16:15 09/20/24 10:09 20 MG Labetalol HCl 10 mg Q6HPRN PRN IV 09/19/24 16:15 09/20/24 02:57 10 MG objective Gen.: Patient lying in bed in no apparent distress. On supplemental oxygen via trach collar. Head: Normocephalic, atraumatic. Eyes: EOMI/PERRLA. Ears: Normal hearing. Normal anatomy. Neck/trachea: S/p trach. Nose: Normal external anatomy. Mouth: Moist mucous membranes. Chest: Decreased air entry bilaterally. No wheezing or rhonchi. Cardiovascular: Positive S1, positive S2. Regular rate and rhythm. Abdomen: Positive bowel sounds in all 4 quadrants. Soft, non-tender, non- distended. : Deferred. Rectal: Deferred. Skin: Warm, dry. Intact. Extremities: 2+ radial pulses bilaterally. No lower extremity edema. Neuro: Awake, alert, oriented x3. No gross motor or sensory deficits. Cranial nerves II through XII intact. Gait not assessed. laboratory and microbiology Laboratory Tests 09/20/24 05:01 09/19/24 03:00 Test 09/19/24 03:00 Range/Units Serum Glucose 177 H 74-106 mg/dL Assessment/Plan Impression: Acute hypoxic respiratory failure On mechanical ventilator Gastrointestinal hemorrhage, upper Aspiration pneumonia MAGDALENA mucous plug Obesity BMI 35.9 s/p tracheostomy Events: S/p trach On 8 LPM via trach collar, Fio2 30% Trach care per RT Pulmonary toileting Head of bed elevation Aspiration precautions Continue antibiotics Continue bronchodilators/Mucomyst Monitor hemoglobin IV fluids with half NS + D5W Monitor renal function Monitor electrolytes. Supplement as necessary. Monitor ins and outs Accu-Cheks, ISS S/p vascular surgery for carotid repair. S/p bronchoscopy w/ BAL on 08/23/24 -cleared mucous plugging from L1-L10 and R1- R10 S/p therapeutic bronchoscopy on 08/19/24 with clearing of mucous plugging. Aspirated coffee ground material removed from within the bilateral lungs. See separate procedure notes for details. Chest x-ray reviewed Labs and imaging reviewed. Rest of plan as noted below Plan: s/p trach On cool aerosol via trach collar Titrate to keep sats above 92% Trach care Continue antibiotics. Continue bronchodilators/Mucomyst Pressors as necessary for hemodynamic support Titrate to keep mean arterial pressure greater than 65 mmHg. Monitor hemoglobin GI recs appreciated TPN for nutritional support HD per Nephrology Monitor renal function Monitor electrolytes. Supplement as necessary. Monitor ins and outs. Accu-Cheks, ISS GI prophylaxis - Protonix. DVT prophylaxis - Lovenox. Prognosis: Poor given patient's multiple co-morbidities. Condition: Critical Rest of plan per hospitalist and other consultants. A total of 35 minutes of critical care time was spent reviewing the patient record, examining the patient, making a diagnostic and therapeutic plan, discussing this plan with the medical personnel, following up on diagnostic studies and following the patient for clinical stability excluding any and all procedures. At least 50% of this time was spent in direct, [id number] contact. Thank you, DEON Morrison, for allowing me to participate in this patient's care. Further recommendations will depend on the patient's clinical course. Please do not hesitate to contact me if you have any questions or concerns. This medical document was created using an electronic medical record system with [employer] dictation system. Although these documentations are being carefully reviewed, there may still be some phonetic and typographical changes. The errors are purely typographical, due to imperfection on the software program, and do not reflect any compromise in the patient's medical care. Dietary Evaluation Review Recommendations by RD: Protein Supplementation, PPN/TPN Comments: Pt is at high risk of malnutrition due to prolonged vomiting leading to inadequate nutrient intake and hypermetabolic state secondary to acute inflammation. Recommendation: 1) Start PN/TPN per pharmacy 2) If GI is accessible, consider TF Pivot 1.5Cal @ 60ml/hr along with Pro-stat 1 pk TID. Start @ 10ml/hr, increase 10ml/hr Q4H until goal rate is reached. Advance TF rate slowly and gradually to prevent Refeeding syndrome. Water Flush 50ml Q4H if allowed. TF Provision --- TF at goal volume to provide 1440 ml total volume, 2160 kcal (+300 kcal via Pro-stat = 2460 kcal), 135 gm pro (+45 gm via ProStat = 180 gm), 1093 ml H20 (meets 100% est. kcal needs, 100% est. protein needs) 3) Monitor Potassium, Phosphate, Magnesium for Refeeding syndrome 4) Des 1 pk daily For DTI 5) Continue current plan of care Expected Outcomes/Goals: Blood glucose to improve Nutrient intake to meet at least 75% estimated needs FU 2-3 days Food and Nutrition Intake (Mod: <75% est energy req 7days Protein Calorie Malnutrition: Severe Plan discussed with: Patient, Other (RN Kaia) LINO CARRION MD September 20, 2024 22:55
[2024-09-21] VITALS (28 sets, daily range): BP systolic 113–173; BP diastolic 34–117; PULSE 69–113; RESP 11–22; TEMP 97.8–98.4; O2SAT 96–100
[2024-09-21 05:24] LABS: Red Cell Distribution Width 15.7 % (11.8-14.3)
[2024-09-21 05:25] LABS: Hematocrit 37.8 % (41.0-53.0); Hemoglobin 12.4 g/dL (13.5-17.5); Mean Corpuscular Hemoglobin 28.9 pg (28.0-32.0); Mean Corpuscular Hgb Conc. 32.8 g/dL (32.0-36.0); Mean Corpuscular Volume 88.2 fL (80.0-100.0); Platelet Count (auto) 468 10^3/uL (140-450); Red Blood Cells 4.29 10^6/uL (4.5-5.90); White Blood Cell 27.7 10^3/uL (4.4-10.8)
[2024-09-21 05:32] LABS: Anion Gap 13 (5-15); Calcium 9.9 mg/dL (8.7-10.4)
[2024-09-21 05:37] LABS: BUN/Creatinine Ratio 15.1 (10.0-20.0); Blood Urea Nitrogen 18 mg/dL (9-23)
[2024-09-21 05:53] LABS: Carbon Dioxide 19 mmol/L (20-31); Chloride 113 mmol/L (98-107); Glucose 178 mg/dL (74-106); Potassium 3.5 mmol/L (3.5-5.1); Sodium 145 mmol/L (136-145)
[2024-09-21 05:57] LABS: Band Neutrophils % (manual) 0; Basophils % (manual) 0 (0.0-2.0); Blast Cells 0; Metamyelocytes % 0; Myelocytes % 0; Promyelocytes % 0; Reactive Lymphocytes 0
[2024-09-21 07:06] LABS: Eosinophils % (manual) 3 (0-7); Lymphocytes % (manual) 11 (10.0-50.0); Monocytes % (manual) 5 (0-12); Platelet Estimate Increased
[2024-09-21 07:11] LABS: Base Excess -3.5 mmol/L (-2.0-3.0)
--- NOTE | 2024-09-21 09:41 | DVH ---
CHEST RADIOGRAPH Indication: T piece on 6L Technique: Single frontal view of the chest was obtained COMPARISON: XY CHEST PORTABLE on DOS: 09/19/24, XY CHEST PORTABLE on DOS: 09/18/24, XY CHEST PORTABLE o n DOS: 09/17/24, XY CHEST PORTABLE on DOS: 09/15/24, XY CHEST PORTABLE on DOS: 09/13/24 FINDINGS: Lines and Tubes: Tracheostomy in satisfactory position. Lungs: Clear Pleura: No effusion. No pneumothorax. Cardiomediastinal contours: Unremarkable Bones: Unremarkable IMPRESSION: No acute disease.
--- NOTE | 2024-09-21 09:43 | DVH ---
Exam: XY KUB ABDOMEN SINGLE VIEW Indication: position of the dobhoff Comparison: XY KUB ABDOMEN SINGLE VIEW on DOS: 09/18/24, XY KUB ABDOMEN SINGLE VIEW on DOS: 09/13/24, X Y KUB ABDOMEN SINGLE VIEW on DOS: 09/04/24, XY KUB ABDOMEN SINGLE VIEW on DOS: 08/31/24, XY KUB ABDOMEN SINGLE VIEW on DOS: 08/29/24 Technique: 1 radiographic views of the abdomen. Findings: Enteric catheter not visualized. Nonobstructive bowel gas pattern noted. There is no definite evidence for pneumoperitoneum. No abnormal calcifications noted. Impression: Enteric catheter not visualized.
[2024-09-21] MEDS: SODIUM BICARB 50mEq/50ml Vial 50 ML in D5W 5% 1,000 ML IV SCH (10:15)
--- NOTE | 2024-09-21 14:11 | DVHPN2 ---
Progress Note - Dictate Date Seen: September 21, 2024 Has the PT tested + for MRSA If YES, has PT been informed?: No Medical Necessity Reason Pt with a Central, PICC or Fol: Yes The following are medically ne: Central Line, Chavez Catheter Reason for chavez catheter: Strict I&O Subjective Patient seen in [facility] Patient has pulled off is the above catheter Currently getting IV fluids NG tube was discontinued Patient has ongoing loose stools and he has a rectal tube in place vital signs Vital Sign Date Time Temp Pulse Resp B/P (MAP) Pulse Ox O2 Delivery O2 Flow Rate FiO2 09/21/24 10:34 69 18 98 6.0 30 09/21/24 09:40 177/116 09/21/24 08:00 Trach Collar 09/21/24 04:00 97.8 97.8 Total Intake and Output 09/20/24 09/20/24 09/21/24 14:59 22:59 06:59 Intake Total 75 ml 300 ml 600 ml Output Total 1350 ml 1150 ml Balance 75 ml -1050 ml -550 ml medications Current Medications Medications Dose Ordered Sig/Nikki Route Start Time Stop Time Status Last Admin Dose Admin Diagnostic Test (Pha) 1 strip ACHS 08/19/24 17:00 Cancel Norepinephrine Bitartrate 250 ml @ 3.75 mls/hr Q24H IV 08/19/24 17:15 Cancel Epoetin Aquilino-epbx 10,000 unit TUTHSA@2100 IA 08/26/24 21:00 Hold 09/13/24 00:02 10,000 UNIT Albumin Human 100 ml @ 100 mls/hr PRN PRN IV 08/26/24 06:45 08/27/24 07:45 100 MLS/HR Norepinephrine Bitartrate 32 mg/ Sodium Chloride 250 ml @ 0.469 mls/ hr Q24H IV 08/27/24 13:00 09/06/24 01:01 0.469 MLS/HR Heparin Sodium (Porcine) 5,000 units Q12HR SC 08/31/24 22:00 09/21/24 09:40 5,000 UNITS Sodium Chloride 10 ml QSHIFT@10,22 IV 08/31/24 22:00 09/21/24 09:39 10 ML Artificial Tears 2 drop Q4HR PRN EACHEYE 09/02/24 10:45 09/14/24 21:59 2 DROP Dextrose 50 ml UD PRN IV 09/03/24 21:00 Enteral Nutritional Formula 1,000 ml 60ML/HR GT 09/08/24 22:15 09/16/24 20:08 1,000 ML Insulin Human Regular AC SC 09/09/24 07:00 09/21/24 12:35 2 UNITS Diagnostic Test (Pha) 1 strip ACHS 09/09/24 07:00 09/21/24 12:32 1 STRIP Aspirin 81 mg DAILY PO 09/12/24 10:00 09/18/24 09:43 81 MG Clopidogrel Bisulfate 75 mg DAILY PO 09/12/24 10:00 09/18/24 09:43 75 MG Atorvastatin Calcium 80 mg HS PO 09/12/24 22:00 09/17/24 21:12 80 MG Vancomycin HCl 0 ml @ 0 mls/hr UD IV 09/14/24 14:15 Pantoprazole Sodium 40 mg DAILY IV 09/15/24 08:15 09/21/24 09:39 40 MG Lorazepam 1 mg ONCE PRN IV 09/16/24 10:45 Purified Water 200 ml QID GT 09/16/24 18:00 09/18/24 11:25 200 ML Vancomycin HCl 200 ml @ 200 mls/hr Q18H IV 09/16/24 22:00 09/21/24 09:39 200 MLS/HR Amlodipine Besylate 10 mg DAILY PO 09/18/24 10:00 09/18/24 09:44 10 MG Insulin Glargine 25 units HS SC 09/18/24 08:30 09/20/24 22:43 25 UNITS Morphine Sulfate 2 mg Q4HPRN PRN IV 09/19/24 16:00 Hydralazine HCl 20 mg Q4HPRN PRN IV 09/19/24 16:15 09/21/24 09:40 20 MG Labetalol HCl 10 mg Q6HPRN PRN IV 09/19/24 16:15 09/20/24 02:57 10 MG Sodium Bicarbonate 50 ml/ Dextrose 1,050 ml @ 75 mls/hr Q14H IV 09/21/24 10:15 objective General: Mechanically ventilated, sedated HEENT: Head is normocephalic and atraumatic. Pupils are equal, round, and reactive to light Neck: Supple with no cervical lymphadenopathy. Heart: Regular rate without murmur, rub, or gallop. Lungs: Bilateral crackles, most prominent on bases Abdomen: No external sign of injury. Bowel sounds present Abdomen is soft, nontender. Extremities: faint peripheral pulses. There is no clubbing, no cyanosis, and no edema. Skin: No rash. laboratory and microbiology Laboratory Tests 09/21/24 05:01 Test 09/21/24 05:01 Range/Units Serum Glucose 178 H 74-106 mg/dL Problems(with codes): (1) CVA (cerebral vascular accident) (2) Gastroparesis (3) Leukocytosis (4) Anemia (5) Diabetes type 2, uncontrolled (6) Hyponatremia Prognosis Plan Patient is awaiting swallow evaluation Dr. Andrade will decide about capping the tracheostomy Continue supportive care Dietary Evaluation Review Recommendations by RD: Protein Supplementation, PPN/TPN Comments: Pt is at high risk of malnutrition due to prolonged vomiting leading to inadequate nutrient intake and hypermetabolic state secondary to acute inflammation. Recommendation: 1) Start PN/TPN per pharmacy 2) If GI is accessible, consider TF Pivot 1.5Cal @ 60ml/hr along with Pro-stat 1 pk TID. Start @ 10ml/hr, increase 10ml/hr Q4H until goal rate is reached. Advance TF rate slowly and gradually to prevent Refeeding syndrome. Water Flush 50ml Q4H if allowed. TF Provision --- TF at goal volume to provide 1440 ml total volume, 2160 kcal (+300 kcal via Pro-stat = 2460 kcal), 135 gm pro (+45 gm via ProStat = 180 gm), 1093 ml H20 (meets 100% est. kcal needs, 100% est. protein needs) 3) Monitor Potassium, Phosphate, Magnesium for Refeeding syndrome 4) Des 1 pk daily For DTI 5) Continue current plan of care Expected Outcomes/Goals: Blood glucose to improve Nutrient intake to meet at least 75% estimated needs FU 2-3 days Food and Nutrition Intake (Mod: <75% est energy req 7days Protein Calorie Malnutrition: Severe Plan discussed with: Other ([facility] Nurse and Sister and Dr Santos) ALDAIR YOUSSEF MD September 21, 2024 14:11
[2024-09-21 15:48] LABS: Urine Bacteria FEW /hpf (None Seen); Urine Blood 1+ /uL (Negative); Urine Clarity Turbid (Clear); Urine Color Light-Yellow (Yellow); Urine Hyaline Cast FEW /lpf (0 - 2); Urine Mucus FEW (None Seen); Urine Protein, UAD 1+ (Negative); Urine Sperm PRESENT /hpf (None Seen); Urine Squamous Epithelial Cell FEW /hpf (<5); Urine Urobilinogen Normal (Negative); Urine WBC 14 /HPF (0-3); Urine pH 5.5 (5.0-9.0)
[2024-09-21] MEDS: CEFEPIME 1GM/ 50ML 50 ML IV ONE (17:30)
--- NOTE | 2024-09-21 19:29 | DVHPNRES ---
Progress Note Date Seen: September 21, 2024 Resident Creating Document: ELIO SANTOS RESIDENT Has the PT tested + for MRSA If YES, has PT been informed?: No Medical Necessity Reason Pt with a Central, PICC or Fol: Yes The following are medically ne: Central Line, Chavez Catheter Reason for chavez catheter: Strict I&O Subjective Review of Systems Patient seen and examined on the bedside He is alert, and orientedX3 He is on trach collar trial with 6L O2 . The patient passed the swallow evaluation today and on pureed diet right now. We will slowly tried to down the size of the trach collar. Objective vital signs Vital Sign Date Time Temp Pulse Resp B/P (MAP) Pulse Ox O2 Delivery O2 Flow Rate FiO2 09/21/24 18:00 100 20 162/94 (116) 98 09/21/24 18:00 Trach Collar 6 30 30 09/21/24 16:00 98.4 98.4 Total Intake and Output 09/20/24 09/20/24 09/21/24 15:00 23:00 07:00 Intake Total 375 ml 600 ml Output Total 1350 ml 1150 ml Balance -975 ml -550 ml medications Current Medications Medications Dose Ordered Sig/Nikki Route Start Time Stop Time Status Last Admin Dose Admin Diagnostic Test (Pha) 1 strip ACHS 08/19/24 17:00 Cancel Norepinephrine Bitartrate 250 ml @ 3.75 mls/hr Q24H IV 08/19/24 17:15 Cancel Epoetin Aquilino-epbx 10,000 unit TUTHSA@2100 SC 08/26/24 21:00 Hold 09/13/24 00:02 10,000 UNIT Albumin Human 100 ml @ 100 mls/hr PRN PRN IV 08/26/24 06:45 08/27/24 07:45 100 MLS/HR Heparin Sodium (Porcine) 5,000 units Q12HR SC 08/31/24 22:00 09/21/24 09:40 5,000 UNITS Sodium Chloride 10 ml QSHIFT@10,22 IV 08/31/24 22:00 09/21/24 09:39 10 ML Artificial Tears 2 drop Q4HR PRN EACHEYE 09/02/24 10:45 09/14/24 21:59 2 DROP Dextrose 50 ml UD PRN IV 09/03/24 21:00 Insulin Human Regular AC SC 09/09/24 07:00 09/21/24 17:44 3 UNITS Diagnostic Test (Pha) 1 strip ACHS 09/09/24 07:00 09/21/24 17:00 1 STRIP Aspirin 81 mg DAILY PO 09/12/24 10:00 09/18/24 09:43 81 MG Clopidogrel Bisulfate 75 mg DAILY PO 09/12/24 10:00 09/18/24 09:43 75 MG Atorvastatin Calcium 80 mg HS PO 09/12/24 22:00 09/17/24 21:12 80 MG Vancomycin HCl 0 ml @ 0 mls/hr UD IV 09/14/24 14:15 Pantoprazole Sodium 40 mg DAILY IV 09/15/24 08:15 09/21/24 09:39 40 MG Lorazepam 1 mg ONCE PRN IV 09/16/24 10:45 Vancomycin HCl 200 ml @ 200 mls/hr Q18H IV 09/16/24 22:00 09/21/24 09:39 200 MLS/HR Amlodipine Besylate 10 mg DAILY PO 09/18/24 10:00 09/18/24 09:44 10 MG Morphine Sulfate 2 mg Q4HPRN PRN IV 09/19/24 16:00 Hydralazine HCl 20 mg Q4HPRN PRN IV 09/19/24 16:15 09/21/24 09:40 20 MG Labetalol HCl 10 mg Q6HPRN PRN IV 09/19/24 16:15 09/20/24 02:57 10 MG Sodium Bicarbonate 50 ml/ Dextrose 1,050 ml @ 75 mls/hr Q14H IV 09/21/24 10:15 09/21/24 10:15 75 MLS/HR Cefepime HCl 50 ml @ 12.5 mls/hr Q8HR IV 09/21/24 22:00 Examination Examination: Constitutional: Patient is alert, arousable and oriented X3 Gen - mild conjuctival pallor, no icterus, no cyanosis, no clubbing, no LAD, 1+ edema in the feet . Skin - Patients skin is warm and dry. HEENT - normocephalic, atraumatic, moist mucous membranes. Neck - full ROM, no LAD, no jvd Pulmonary - B/L air entry present, diffuse rales, no wheezing, no stridor. cardiovascular - regular S1,S2 heard, no added sounds, no murmurs heard. GI - soft abdomen. no hepatospleenomegaly. bowel sounds hypoactive sacrum- ulcer seen , stage 3 ulcer with black eschar and surrounding pinkish granulation tissue. Neurological - Strength at 5/5 X3 ext, Normal tone, Sensation intact, grossly intact cranial nerves laboratory and microbiology Laboratory Tests 09/21/24 05:01 Test 09/21/24 05:01 Range/Units Serum Glucose 178 H 74-106 mg/dL Microbiology Date/Time Source Procedure Growth Status 09/16/24 16:00 Sputum Gram Stain - Final Complete 09/16/24 16:00 Sputum Respiratory Culture - Final Complete 09/10/24 10:47 Catheter Tip Other Aerobic Culture - Final Complete 09/04/24 10:19 Blood Blood Culture - Final NO GROWTH AFTER 5 DAYS OF INCUBATION. Complete 08/31/24 14:00 Urine - Chavez [place] Urine Culture - Final Complete Labs and/or images reviewed: Labs reviewed by me, Image(s) reviewed by me Problem List/Assessment/Plan Problem List/Assessment/Plan Assessment and plan: Neurology Acute ischemic stroke in the rt cerebellar hemisphere and Left frontoparietal Acute metabolic encephalopathy likely due to sepsis/HHS - MRI demonstrated Acute infarction within the right cerebellar hemisphere measuring 3.2 x 0.7 cm. Left frontoparietal increased T2 signal with mild diffusion restriction signal. This could represent subacute infarct or underlying mass/lesion. - on mechanical ventilation - S/P tracheostomy - Patient passed the window period of tPA therapy for ischemic stroke and also he has a recent history of GI bleeding in 1 week. - Continue aspirin 81 mg daily, clopidogrel 75 mg daily and atorvastatin 80 mg at HS - Neurology evaluated the patient and recommended ESTHER for possible identification of the source of the emboli for ischemic stroke. EEG demonstrated borderline normal EEG and no focal lateralized or epileptiform features noted. - Patient underwent ESTHER today and revealed there are no significant Doppler anomalies. No significant tricuspid mitral or aortic insufficiency. Pulmonic insufficiency was not visualized. No pericardial effusion masses or vegetations discernible. No intracardiac masses. No intra-atrial shunt. No VSD or ASD noted. Bubble studies did not reveal intra-atrial shunting or crossover Respiratory Acute hypoxic respiratory failure Probable aspiration pneumonia ARDS - S/P tracheostomy and on trach collar trial with 8L O2 - chest x-ray shows bilateral patchy opacities - ABG compensated - duonebs q6hr - IV antibiotics Vancomycin and cefepime - sputum culture showed growth of yeast Cardiovascular Shock due to sepsis possibly from aspiration Acute on chronic heart failure with reduced ejection fraction Hypertensive heart disease - echo showed LVEF60% on 09/16 - Amlodipine 10 mg po daily. Infectious disease Septic shock likely due to aspiration pneumonia Infected Sacral ulcer, unstageable pressure ulcer - on IV antibiotics - culture from sacral ulcer growing enterococcus - blood culture showed no growth - on Vancomycin and cefepime Nephrology Metabolic alkalosis likely from intractable vomiting, resolved KATE on CKD likely due to be VMN from dehydration - Last dialysis on 09/07/24 and hold off dialysis per nephrology. - urine output improved - Epotein alpha-epbx per protocol GI ?Gastroparesis ?Upper GI bleed - KUB shows nonobstructive bowel gas pattern - IV Protonix daily - 4 units of PRBC given, H&H stable - GI on board - CT with PO contrast showed no obstruction. - FOBT positive - Patient passed the swallow evaluation today and on pureed diet Endocrinology Uncontrolled diabetes mellitus with a hyperglycemia Morbid obesity - on insulin sliding scale - lantus 20 unit HS Skin - stage III big ulcer in the sacral area covered with eschar - Surgery mentioned patient does not need debridement now because no fluctuation or discharge. Diet: Pureed diet DVT prophylaxis: heparin Left upper arm PICC placed on 08/31 Chavez's catheter placed on 09/09/24 Goals of care discussed with the patient's sister Sheree for over 27 mins. Full code Critical care time spent 81 minutes includes trach collar trial Plan discussed with Dr. Flowers Plan discussed with: Patient, Other (Sister, RN) My Orders My Orders Orders - ELIO SANTOS RESIDENT Procedure Category Date Status Time Communication Order ORDERS 09/21/24 Transmitted 06:38 Chest Portable XY 09/21/24 Resulted 06:40 Abg W/ Co-Ox RT 09/21/24 Logged 06:41 Kub Abdomen Single XY 09/21/24 Resulted View 06:44 Cefepime 1gm/ 50ml PHA 09/21/24 In Process (Maxipime 1gm/50ml) 22:00 Cefepime 1gm/ 50ml PHA 09/21/24 In Process (Maxipime 1gm/50ml) 17:30 Dietary Evaluation Review Recommendations by RD: Protein Supplementation, PPN/TPN Comments: Pt is at high risk of malnutrition due to prolonged vomiting leading to inadequate nutrient intake and hypermetabolic state secondary to acute inflammation. Recommendation: 1) Start PN/TPN per pharmacy 2) If GI is accessible, consider TF Pivot 1.5Cal @ 60ml/hr along with Pro-stat 1 pk TID. Start @ 10ml/hr, increase 10ml/hr Q4H until goal rate is reached. Advance TF rate slowly and gradually to prevent Refeeding syndrome. Water Flush 50ml Q4H if allowed. TF Provision --- TF at goal volume to provide 1440 ml total volume, 2160 kcal (+300 kcal via Pro-stat = 2460 kcal), 135 gm pro (+45 gm via ProStat = 180 gm), 1093 ml H20 (meets 100% est. kcal needs, 100% est. protein needs) 3) Monitor Potassium, Phosphate, Magnesium for Refeeding syndrome 4) Des 1 pk daily For DTI 5) Continue current plan of care Expected Outcomes/Goals: Blood glucose to improve Nutrient intake to meet at least 75% estimated needs FU 2-3 days Food and Nutrition Intake (Mod: <75% est energy req 7days Protein Calorie Malnutrition: Severe Date of Service: September 21, 2024 Billing Provider: ARMANDO FLOWERS MD Common Visit Codes: 91903-[id number] CARE 30-74 MIN, [id number] CARE-EACH +30MIN ELIO SANTOS RESIDENT September 21, 2024 19:29 ARMANDO FLOWERS MD September 22, 2024 15:12
[2024-09-21] MEDS: CEFEPIME 1GM/ 50ML 50 ML IV SCH (22:29)
[2024-09-22] VITALS (40 sets, daily range): BP systolic 94–156; BP diastolic 46–95; PULSE 93–116; RESP 14–26; TEMP 98.3–99.6; O2SAT 97–100
[2024-09-22 05:38] LABS: Basophils # (auto) 0.2 10 ^3/uL (0-0.2); Basophils % (auto) 0.6 % (0.0-2.0); Eosinophils # (auto) 0.4 10 ^3/uL (0-0.8); Eosinophils % (auto) 1.5 % (0.0-7.0); Hematocrit 35.5 % (41.0-53.0); Hemoglobin 11.8 g/dL (13.5-17.5); Lymphocytes # (auto) 2.5 10 ^3/uL (0.4-5.4); Lymphocytes % (auto) 10.1 % (10.0-50.0); Mean Corpuscular Hemoglobin 28.9 pg (28.0-32.0); Mean Corpuscular Hgb Conc. 33.4 g/dL (32.0-36.0); Mean Corpuscular Volume 86.7 fL (80.0-100.0); Monocytes # (auto) 1.8 10 ^3/uL (0-1.3); Monocytes % (auto) 7.4 % (0.0-12.0); Neutrophils # (auto) 19.8 10 ^3/uL (1.6-8.6); Neutrophils % (auto) 80.4 % (37.0-80.0); Platelet Count (auto) 412 10^3/uL (140-450); Red Blood Cells 4.09 10^6/uL (4.5-5.90); White Blood Cell 24.6 10^3/uL (4.4-10.8)
[2024-09-22 05:46] LABS: Sodium 144 mmol/L (136-145)
[2024-09-22 05:47] LABS: Anion Gap 13 (5-15); Calcium 9.1 mg/dL (8.7-10.4); Carbon Dioxide 20 mmol/L (20-31)
[2024-09-22 05:53] LABS: BUN/Creatinine Ratio 16.2 (10.0-20.0); Blood Urea Nitrogen 18 mg/dL (9-23)
[2024-09-22 05:59] LABS: Chloride 111 mmol/L (98-107); Glucose 171 mg/dL (74-106)
[2024-09-22] MEDS: POTASSIUM EFFERVESENT TAB 25 MEQ PO ONE (08:54)
[2024-09-22] MEDS: POTASSIUM CHL 20MEQ/100ML 100 ML IV ONE (08:56)
--- NOTE | 2024-09-22 16:18 | DVHPN2 ---
Progress Note - Dictate Date Seen: September 22, 2024 Has the PT tested + for MRSA If YES, has PT been informed?: No Medical Necessity Reason Pt with a Central, PICC or Fol: Yes The following are medically ne: Central Line, Chavez Catheter Reason for chavez catheter: Strict I&O Subjective Patient seen in [facility] 265 Patient passed swallow evaluation and is currently on a pureed diet His rectal tube was discontinued last night and he has not had a bowel movement this morning vital signs Vital Sign Date Time Temp Pulse Resp B/P (MAP) Pulse Ox O2 Delivery O2 Flow Rate FiO2 09/22/24 14:30 111 21 119/66 (83) 99 09/22/24 14:00 Trach Collar 6 30 30 09/22/24 12:00 98.3 98.3 Total Intake and Output 09/21/24 09/21/24 09/22/24 15:00 23:00 07:00 Intake Total 425 ml 387.5 ml 880.0 ml Output Total 1000 ml 600 ml Balance 425 ml -612.5 ml 280.0 ml medications Current Medications Medications Dose Ordered Sig/Nikki Route Start Time Stop Time Status Last Admin Dose Admin Diagnostic Test (Pha) 1 strip ACHS 08/19/24 17:00 Cancel Norepinephrine Bitartrate 250 ml @ 3.75 mls/hr Q24H IV 08/19/24 17:15 Cancel Epoetin Aquilino-epbx 10,000 unit TUTHSA@2100 [place] 08/26/24 21:00 Hold 09/13/24 00:02 10,000 UNIT Heparin Sodium (Porcine) 5,000 units Q12HR SC 08/31/24 22:00 09/22/24 10:32 5,000 UNITS Sodium Chloride 10 ml QSHIFT@10,22 IV 08/31/24 22:00 09/22/24 10:24 10 ML Artificial Tears 2 drop Q4HR PRN EACHEYE 09/02/24 10:45 09/14/24 21:59 2 DROP Dextrose 50 ml UD PRN IV 09/03/24 21:00 Insulin Human Regular AC SC 09/09/24 07:00 09/22/24 13:51 6 UNITS Diagnostic Test (Pha) 1 strip ACHS 09/09/24 07:00 09/22/24 13:52 1 STRIP Aspirin 81 mg DAILY PO 09/12/24 10:00 5/20/25 10:25 81 MG Clopidogrel Bisulfate 75 mg DAILY PO 09/12/24 10:00 09/22/24 10:26 75 MG Atorvastatin Calcium 80 mg HS PO 09/12/24 22:00 09/21/24 22:29 80 MG Vancomycin HCl 0 ml @ 0 mls/hr UD IV 09/14/24 14:15 Pantoprazole Sodium 40 mg DAILY IV 09/15/24 08:15 09/22/24 10:24 40 MG Lorazepam 1 mg ONCE PRN IV 09/16/24 10:45 Vancomycin HCl 200 ml @ 200 mls/hr Q18H IV 09/16/24 22:00 09/22/24 04:14 200 MLS/HR Amlodipine Besylate 10 mg DAILY PO 09/18/24 10:00 09/22/24 10:25 10 MG Morphine Sulfate 2 mg Q4HPRN PRN IV 09/19/24 16:00 Hydralazine HCl 20 mg Q4HPRN PRN IV 09/19/24 16:15 09/22/24 00:52 20 MG Labetalol HCl 10 mg Q6HPRN PRN IV 09/19/24 16:15 09/20/24 02:57 10 MG Sodium Bicarbonate 50 ml/ Dextrose 1,050 ml @ 75 mls/hr Q14H IV 09/21/24 10:15 09/21/24 10:15 75 MLS/HR Cefepime HCl 50 ml @ 12.5 mls/hr Q8HR IV 09/21/24 22:00 09/22/24 13:52 12.5 MLS/HR objective General: Awake alert on a trach collar HEENT: Head is normocephalic and atraumatic. Pupils are equal, round, and reactive to light Neck: Supple with no cervical lymphadenopathy. Heart: Regular rate without murmur, rub, or gallop. Lungs: Bilateral crackles, most prominent on bases Abdomen: No external sign of injury. Bowel sounds present Abdomen is soft, nontender. Extremities: faint peripheral pulses. There is no clubbing, no cyanosis, and no edema. Skin: No rash. laboratory and microbiology Laboratory Tests 09/22/24 15:46 09/22/24 05:07 Test 09/22/24 05:07 Range/Units Serum Glucose 171 H 74-106 mg/dL Problems(with codes): (1) CVA (cerebral vascular accident) (2) Diabetes type 2, uncontrolled (3) Anemia (4) Leukocytosis (5) Gastroparesis Prognosis Plan Continue pureed diet Monitor bowel activity Trach collar size is going to be decrease to a six size fenestrated uncuffed tomorrow Continue physical therapy Dietary Evaluation Review Recommendations by RD: Protein Supplementation, PPN/TPN Comments: Pt is at high risk of malnutrition due to prolonged vomiting leading to inadequate nutrient intake and hypermetabolic state secondary to acute inflammation. Recommendation: 1) Start PN/TPN per pharmacy 2) If GI is accessible, consider TF Pivot 1.5Cal @ 60ml/hr along with Pro-stat 1 pk TID. Start @ 10ml/hr, increase 10ml/hr Q4H until goal rate is reached. Advance TF rate slowly and gradually to prevent Refeeding syndrome. Water Flush 50ml Q4H if allowed. TF Provision --- TF at goal volume to provide 1440 ml total volume, 2160 kcal (+300 kcal via Pro-stat = 2460 kcal), 135 gm pro (+45 gm via ProStat = 180 gm), 1093 ml H20 (meets 100% est. kcal needs, 100% est. protein needs) 3) Monitor Potassium, Phosphate, Magnesium for Refeeding syndrome 4) Des 1 pk daily For DTI 5) Continue current plan of care Expected Outcomes/Goals: Blood glucose to improve Nutrient intake to meet at least 75% estimated needs FU 2-3 days Food and Nutrition Intake (Mod: <75% est energy req 7days Protein Calorie Malnutrition: Severe Plan discussed with: Patient, Other ([facility] Nurse Neena) ALDAIR YOUSSEF MD September 22, 2024 16:18
--- NOTE | 2024-09-22 18:05 | DVHPNRES ---
Progress Note Date Seen: September 22, 2024 Resident Creating Document: ELIO SANTOS RESIDENT Has the PT tested + for MRSA If YES, has PT been informed?: No Medical Necessity Reason Pt with a Central, PICC or Fol: Yes The following are medically ne: Chavez Catheter Reason for chavez catheter: Strict I&O Subjective Review of Systems Patient seen and examined on the bedside He is alert, and orientedX3 He is on trach collar trial with 6L O2 . The patient passed the swallow evaluation today and on pureed diet right now. Tomorrow we will down the size of the trach collar to 6 fenestrated with cuff less tracheostomy tube. Objective vital signs Vital Sign Date Time Temp Pulse Resp B/P (MAP) Pulse Ox O2 Delivery O2 Flow Rate FiO2 09/22/24 14:30 111 21 119/66 (83) 99 09/22/24 14:00 Trach Collar 6 30 30 09/22/24 12:00 98.3 98.3 Total Intake and Output 09/21/24 09/21/24 09/22/24 15:00 23:00 07:00 Intake Total 425 ml 387.5 ml 880.0 ml Output Total 1000 ml 600 ml Balance 425 ml -612.5 ml 280.0 ml medications Current Medications Medications Dose Ordered Sig/Nikki Route Start Time Stop Time Status Last Admin Dose Admin Diagnostic Test (Pha) 1 strip ACHS 08/19/24 17:00 Cancel Norepinephrine Bitartrate 250 ml @ 3.75 mls/hr Q24H IV 08/19/24 17:15 Cancel Epoetin Aquilino-epbx 10,000 unit TUTHSA@2100 DE 08/26/24 21:00 Hold 09/13/24 00:02 10,000 UNIT Heparin Sodium (Porcine) 5,000 units Q12HR SC 08/31/24 22:00 09/22/24 10:32 5,000 UNITS Sodium Chloride 10 ml QSHIFT@10,22 IV 08/31/24 22:00 09/22/24 10:24 10 ML Artificial Tears 2 drop Q4HR PRN EACHEYE 09/02/24 10:45 09/14/24 21:59 2 DROP Dextrose 50 ml UD PRN IV 09/03/24 21:00 Insulin Human Regular AC SC 09/09/24 07:00 09/22/24 13:51 6 UNITS Diagnostic Test (Pha) 1 strip ACHS 09/09/24 07:00 09/22/24 13:52 1 STRIP Aspirin 81 mg DAILY PO 09/12/24 10:00 09/22/24 10:25 81 MG Clopidogrel Bisulfate 75 mg DAILY PO 09/12/24 10:00 09/22/24 10:26 75 MG Atorvastatin Calcium 80 mg HS PO 09/12/24 22:00 09/21/24 22:29 80 MG Vancomycin HCl 0 ml @ 0 mls/hr UD IV 09/14/24 14:15 Pantoprazole Sodium 40 mg DAILY IV 09/15/24 08:15 09/22/24 10:24 40 MG Lorazepam 1 mg ONCE PRN IV 09/16/24 10:45 Vancomycin HCl 200 ml @ 200 mls/hr Q18H IV 09/16/24 22:00 09/22/24 04:14 200 MLS/HR Amlodipine Besylate 10 mg DAILY PO 09/18/24 10:00 09/22/24 10:25 10 MG Morphine Sulfate 2 mg Q4HPRN PRN IV 09/19/24 16:00 Hydralazine HCl 20 mg Q4HPRN PRN IV 09/19/24 16:15 09/22/24 00:52 20 MG Labetalol HCl 10 mg Q6HPRN PRN IV 09/19/24 16:15 09/20/24 02:57 10 MG Sodium Bicarbonate 50 ml/ Dextrose 1,050 ml @ 75 mls/hr Q14H IV 09/21/24 10:15 09/21/24 10:15 75 MLS/HR Cefepime HCl 50 ml @ 12.5 mls/hr Q8HR IV 09/21/24 22:00 09/22/24 13:52 12.5 MLS/HR Examination Examination: Constitutional: Patient is alert, arousable and oriented X3 Gen - mild conjuctival pallor, no icterus, no cyanosis, no clubbing, no LAD, 1+ edema in the feet . Skin - Patients skin is warm and dry. HEENT - normocephalic, atraumatic, moist mucous membranes. Neck - full ROM, no LAD, no jvd Pulmonary - B/L air entry present, diffuse rales, no wheezing, no stridor. cardiovascular - regular S1,S2 heard, no added sounds, no murmurs heard. GI - soft abdomen. no hepatospleenomegaly. bowel sounds hypoactive sacrum- ulcer seen , stage 3 ulcer with black eschar and surrounding pinkish granulation tissue. Neurological - Strength at 5/5 X3 ext, Normal tone, Sensation intact, grossly intact cranial nerves laboratory and microbiology Laboratory Tests 09/22/24 15:46 09/22/24 05:07 Test 09/22/24 05:07 Range/Units Serum Glucose 171 H 74-106 mg/dL Microbiology Date/Time Source Procedure Growth Status 09/16/24 16:00 Sputum Gram Stain - Final Complete 09/16/24 16:00 Sputum Respiratory Culture - Final Complete 09/10/24 10:47 Catheter Tip Other Aerobic Culture - Final Complete 09/04/24 10:19 Blood Blood Culture - Final NO GROWTH AFTER 5 DAYS OF INCUBATION. Complete 08/31/24 14:00 Urine - Chavez Port Urine Culture - Final Complete Labs and/or images reviewed: Labs reviewed by me, Image(s) reviewed by me Problem List/Assessment/Plan Problem List/Assessment/Plan Assessment and plan: Neurology Acute ischemic stroke in the rt cerebellar hemisphere and Left frontoparietal Acute metabolic encephalopathy likely due to sepsis/HHS - MRI demonstrated Acute infarction within the right cerebellar hemisphere measuring 3.2 x 0.7 cm. Left frontoparietal increased T2 signal with mild diffusion restriction signal. This could represent subacute infarct or underlying mass/lesion. - on mechanical ventilation - S/P tracheostomy - Patient passed the window period of tPA therapy for ischemic stroke and also he has a recent history of GI bleeding in 1 week. - Continue aspirin 81 mg daily, clopidogrel 75 mg daily and atorvastatin 80 mg at HS - Neurology evaluated the patient and recommended ESTHER for possible identification of the source of the emboli for ischemic stroke. EEG demonstrated borderline normal EEG and no focal lateralized or epileptiform features noted. - Patient underwent ESTHER today and revealed there are no significant Doppler anomalies. No significant tricuspid mitral or aortic insufficiency. Pulmonic insufficiency was not visualized. No pericardial effusion masses or vegetations discernible. No intracardiac masses. No intra-atrial shunt. No VSD or ASD noted. Bubble studies did not reveal intra-atrial shunting or crossover Respiratory Acute hypoxic respiratory failure Probable aspiration pneumonia ARDS - S/P tracheostomy and on trach collar trial with 8L O2 - chest x-ray shows bilateral patchy opacities - ABG compensated - duonebs q6hr - IV antibiotics Vancomycin and cefepime - sputum culture showed growth of yeast Cardiovascular Shock due to sepsis possibly from aspiration Acute on chronic heart failure with reduced ejection fraction Hypertensive heart disease - echo showed LVEF60% on 09/16 - Amlodipine 10 mg po daily. Infectious disease Septic shock likely due to aspiration pneumonia Infected Sacral ulcer, unstageable pressure ulcer - on IV antibiotics - culture from sacral ulcer growing enterococcus - blood culture showed no growth - on Vancomycin and cefepime Nephrology Metabolic alkalosis likely from intractable vomiting, resolved KATE on CKD likely due to be VMN from dehydration - Last dialysis on 09/07/24 and hold off dialysis per nephrology. - urine output improved - Epotein alpha-epbx per protocol GI ?Gastroparesis ?Upper GI bleed - KUB shows nonobstructive bowel gas pattern - IV Protonix daily - 4 units of PRBC given, H&H stable - GI on board - CT with PO contrast showed no obstruction. - FOBT positive - Patient passed the swallow evaluation today and on pureed diet Endocrinology Uncontrolled diabetes mellitus with a hyperglycemia Morbid obesity - on insulin sliding scale - lantus 20 unit HS Skin - Unstageble ulcer in the sacral area covered with eschar - Surgery mentioned patient does not need debridement now because no fluctuation or discharge. Diet: Pureed diet DVT prophylaxis: heparin Left upper arm midline placed on 09/18/24 Chavez's catheter placed on 09/09/24 Goals of care discussed with the patient's sister Sheree for over 27 mins. Full code Critical care time spent 61 minutes includes trach collar trial Plan discussed with Dr. Flowers Plan discussed with: Patient, Other (Sister) My Orders My Orders Orders - ELIO SANTOS RESIDENT Procedure Category Date Status Time * Dietary Consult CONS 09/22/24 Transmitted 09:35 Communication Order ORDERS 09/22/24 Transmitted 16:03 Dietary Evaluation Review Recommendations by RD: Protein Supplementation, PPN/TPN Comments: Pt is at high risk of malnutrition due to prolonged vomiting leading to inadequate nutrient intake and hypermetabolic state secondary to acute inflammation. Recommendation: 1) Start PN/TPN per pharmacy 2) If GI is accessible, consider TF Pivot 1.5Cal @ 60ml/hr along with Pro-stat 1 pk TID. Start @ 10ml/hr, increase 10ml/hr Q4H until goal rate is reached. Advance TF rate slowly and gradually to prevent Refeeding syndrome. Water Flush 50ml Q4H if allowed. TF Provision --- TF at goal volume to provide 1440 ml total volume, 2160 kcal (+300 kcal via Pro-stat = 2460 kcal), 135 gm pro (+45 gm via ProStat = 180 gm), 1093 ml H20 (meets 100% est. kcal needs, 100% est. protein needs) 3) Monitor Potassium, Phosphate, Magnesium for Refeeding syndrome 4) Des 1 pk daily For DTI 5) Continue current plan of care Expected Outcomes/Goals: Blood glucose to improve Nutrient intake to meet at least 75% estimated needs FU 2-3 days Food and Nutrition Intake (Mod: <75% est energy req 7days Protein Calorie Malnutrition: Severe Date of Service: September 22, 2024 Billing Provider: ARMANDO FLOWERS MD Common Visit Codes: [id number] CARE 30-74 MIN ELIO SANTOS RESIDENT September 22, 2024 18:05 ARMANDO FLOWERS MD September 23, 2024 16:31
[2024-09-23] VITALS (25 sets, daily range): BP systolic 91–153; BP diastolic 40–85; PULSE 88–116; RESP 11–31; TEMP 97.7–99.3; O2SAT 95–100
[2024-09-23 05:10] LABS: Basophils # (auto) 0.2 10 ^3/uL (0-0.2); Basophils % (auto) 1.1 % (0.0-2.0); Eosinophils # (auto) 0.5 10 ^3/uL (0-0.8); Eosinophils % (auto) 2.3 % (0.0-7.0); Hematocrit 33.6 % (41.0-53.0); Hemoglobin 11.2 g/dL (13.5-17.5); Lymphocytes # (auto) 2.3 10 ^3/uL (0.4-5.4); Mean Corpuscular Hemoglobin 28.9 pg (28.0-32.0); Mean Corpuscular Hgb Conc. 33.4 g/dL (32.0-36.0); Mean Corpuscular Volume 86.4 fL (80.0-100.0); Monocytes # (auto) 1.8 10 ^3/uL (0-1.3); Monocytes % (auto) 7.8 % (0.0-12.0); Neutrophils # (auto) 18.3 10 ^3/uL (1.6-8.6); Neutrophils % (auto) 78.8 % (37.0-80.0); Nucleated Red Blood Cells % 0.1 %; Platelet Count (auto) 363 10^3/uL (140-450); Red Blood Cells 3.88 10^6/uL (4.5-5.90); Red Cell Distribution Width 15.5 % (11.8-14.3); White Blood Cell 23.3 10^3/uL (4.4-10.8)
[2024-09-23 05:16] LABS: Chloride 105 mmol/L (98-107); Sodium 137 mmol/L (136-145)
[2024-09-23 05:17] LABS: Anion Gap 10 (5-15); Calcium 8.9 mg/dL (8.7-10.4); Carbon Dioxide 22 mmol/L (20-31)
[2024-09-23 05:22] LABS: BUN/Creatinine Ratio 14.3 (10.0-20.0); Blood Urea Nitrogen 17 mg/dL (9-23)
--- NOTE | 2024-09-23 05:33 | DVH ---
EXAM: XR Chest, 1 View CLINICAL INDICATION: s/p tracheostomy TECHNIQUE: Frontal view of the chest. COMPARISON: XY CHEST PORTABLE on DOS: 09/21/24, XY CHEST PORTABLE on DOS: 09/19/24, XY CHEST PORTABLE on DOS: 09/18/24, XY CHEST PORTABLE on DOS: 09/17/24, XY CHEST PORTABLE on DOS: 09/15/24 FINDINGS: LUNGS AND PLEURAL SPACES: Pulmonary congestion and edema. Pneumonia cannot be excluded. No pneumot horax. HEART: Unremarkable. No cardiomegaly. MEDIASTINUM: Unremarkable. Normal mediastinal contour. BONES/JOINTS: Unremarkable. No acute fracture. TUBES, LINES AND DEVICES: Tracheostomy tube in satisfactory position. OTHER FINDINGS: . IMPRESSION: Pulmonary congestion and edema. Pneumonia cannot be excluded.
[2024-09-23 05:53] LABS: Glucose 187 mg/dL (74-106); Potassium 3.3 mmol/L (3.5-5.1)
[2024-09-23] MEDS ORDERED: POTASSIUM CHL 20MEQ/100ML 100 ML IV SCH (08:00)
[2024-09-23] MEDS: POTASSIUM CHL 20MEQ/100ML 100 ML IV SCH (08:17)
[2024-09-23] MEDS: Glucerna Carbsteady SHAKE Vanilla 8oz PO SCH (09:14)
[2024-09-23] MEDS: MAGNESIUM SULFATE 1GM/100ML 100 ML IV ONE (09:14)
[2024-09-23] MEDS: PANTOPRAZOLE 40 MG TAB PO ONE (09:14)
--- NOTE | 2024-09-23 17:15 | DVHPNRES ---
Progress Note Date Seen: September 23, 2024 Resident Creating Document: ELIO SANTOS RESIDENT Has the PT tested + for MRSA If YES, has PT been informed?: No Medical Necessity Reason Pt with a Central, PICC or Fol: Yes The following are medically ne: Chavez Catheter Reason for chavez catheter: Strict I&O Subjective Review of Systems Patient seen and examined on the bedside He is alert, and orientedX3 He is on trach collar trial with 6L O2 . Patient is on pureed diet. Downsize the trach collar to 6 fenestrated with cuff less tracheostomy tube and the patient tolerated the procedure well. Downgraded the patient to telemetry. Objective vital signs Vital Sign Date Time Temp Pulse Resp B/P (MAP) Pulse Ox O2 Delivery O2 Flow Rate FiO2 09/23/24 16:00 18 99 Trach Collar 6 30 30 09/23/24 16:00 108 09/23/24 16:00 97.8 132/48 (76) 97.8 Total Intake and Output 09/22/24 09/22/24 09/23/24 15:00 23:00 07:00 Intake Total 3750 ml 2450 ml 950 ml Output Total 750 ml 1150 ml Balance 3750 ml 1700 ml -200 ml medications Current Medications Medications Dose Ordered Sig/Nikki Route Start Time Stop Time Status Last Admin Dose Admin Diagnostic Test (Pha) 1 strip ACHS 08/19/24 17:00 Cancel Norepinephrine Bitartrate 250 ml @ 3.75 mls/hr Q24H IV 08/19/24 17:15 Cancel Epoetin Aquilino-epbx 10,000 unit TUTHSA@2100 SC 08/26/24 21:00 09/22/24 23:04 10,000 UNIT Heparin Sodium (Porcine) 5,000 units Q12HR SC 08/31/24 22:00 09/23/24 09:18 5,000 UNITS Sodium Chloride 10 ml QSHIFT@10,22 IV 08/31/24 22:00 09/23/24 09:17 10 ML Artificial Tears 2 drop Q4HR PRN EACHEYE 09/02/24 10:45 09/14/24 21:59 2 DROP Dextrose 50 ml UD PRN IV 09/03/24 21:00 Insulin Human Regular AC SC 09/09/24 07:00 09/23/24 11:16 9 UNITS Diagnostic Test (Pha) 1 strip ACHS 09/09/24 07:00 09/23/24 11:11 1 STRIP Aspirin 81 mg DAILY PO 09/12/24 10:00 09/23/24 09:15 81 MG Clopidogrel Bisulfate 75 mg DAILY PO 09/12/24 10:00 09/23/24 09:16 75 MG Atorvastatin Calcium 80 mg HS PO 09/12/24 22:00 09/22/24 21:31 80 MG Vancomycin HCl 0 ml @ 0 mls/hr UD IV 09/14/24 14:15 Lorazepam 1 mg ONCE PRN IV 09/16/24 10:45 Vancomycin HCl 200 ml @ 200 mls/hr Q18H IV 09/16/24 22:00 09/23/24 15:40 200 MLS/HR Amlodipine Besylate 10 mg DAILY PO 09/18/24 10:00 09/23/24 09:16 10 MG Morphine Sulfate 2 mg Q4HPRN PRN IV 09/19/24 16:00 Labetalol HCl 10 mg Q6HPRN PRN IV 09/19/24 16:15 09/20/24 02:57 10 MG Sodium Bicarbonate 50 ml/ Dextrose 1,050 ml @ 75 mls/hr Q14H IV 09/21/24 10:15 09/22/24 18:53 75 MLS/HR Cefepime HCl 50 ml @ 12.5 mls/hr Q8HR IV 09/21/24 22:00 09/23/24 13:08 12.5 MLS/HR Enteral Nutritional Formula 240 ml TIDWM PO 09/23/24 08:00 09/23/24 13:05 240 ML Potassium Chloride 100 ml @ 50 mls/hr Q2H IV 09/23/24 08:00 09/23/24 11:59 UNV Pantoprazole Sodium 40 mg DAILY@0600 PO 09/24/24 06:00 Insulin Glargine 10 units HS SC 09/23/24 22:00 Acetaminophen 650 mg Q6HP PRN PO 09/23/24 14:30 Examination Examination: Constitutional: Patient is alert, arousable and oriented X3 Gen - mild conjuctival pallor, no icterus, no cyanosis, no clubbing, no LAD, 1+ edema in the feet . Skin - Patients skin is warm and dry. HEENT - normocephalic, atraumatic, moist mucous membranes. Neck - full ROM, no LAD, no jvd Pulmonary - B/L air entry present, diffuse rales, no wheezing, no stridor. cardiovascular - regular S1,S2 heard, no added sounds, no murmurs heard. GI - soft abdomen. no hepatospleenomegaly. bowel sounds hypoactive sacrum- ulcer seen , stage 3 ulcer with black eschar and surrounding pinkish granulation tissue. Neurological - Strength at 5/5 X3 ext, Normal tone, Sensation intact, grossly intact cranial nerves laboratory and microbiology Laboratory Tests 09/23/24 04:53 Test 09/23/24 04:53 Range/Units Serum Glucose 187 H 74-106 mg/dL Microbiology Date/Time Source Procedure Growth Status 09/16/24 16:00 Sputum Gram Stain - Final Complete 09/16/24 16:00 Sputum Respiratory Culture - Final Complete 09/10/24 10:47 Catheter Tip Other Aerobic Culture - Final Complete 09/04/24 10:19 Blood Blood Culture - Final NO GROWTH AFTER 5 DAYS OF INCUBATION. Complete 08/31/24 14:00 Urine - Chavez [place] Urine Culture - Final Complete Labs and/or images reviewed: Labs reviewed by me, Image(s) reviewed by me Problem List/Assessment/Plan Problem List/Assessment/Plan Assessment and plan: Neurology Acute ischemic stroke in the rt cerebellar hemisphere and Left frontoparietal Acute metabolic encephalopathy likely due to sepsis/HHS - MRI demonstrated Acute infarction within the right cerebellar hemisphere measuring 3.2 x 0.7 cm. Left frontoparietal increased T2 signal with mild diffusion restriction signal. This could represent subacute infarct or underlying mass/lesion. - on mechanical ventilation - S/P tracheostomy - Patient passed the window period of tPA therapy for ischemic stroke and also he has a recent history of GI bleeding in 1 week. - Continue aspirin 81 mg daily, clopidogrel 75 mg daily and atorvastatin 80 mg at HS - Neurology evaluated the patient and recommended ESTHER for possible identification of the source of the emboli for ischemic stroke. EEG demonstrated borderline normal EEG and no focal lateralized or epileptiform features noted. - Patient underwent ESTHER today and revealed there are no significant Doppler anomalies. No significant tricuspid mitral or aortic insufficiency. Pulmonic insufficiency was not visualized. No pericardial effusion masses or vegetations discernible. No intracardiac masses. No intra-atrial shunt. No VSD or ASD noted. Bubble studies did not reveal intra-atrial shunting or crossover Respiratory Acute hypoxic respiratory failure Probable aspiration pneumonia ARDS - S/P tracheostomy and on trach collar with 6L O2 - chest x-ray shows bilateral patchy opacities - ABG compensated - duonebs q6hr - IV antibiotics Vancomycin and cefepime - sputum culture showed growth of yeast Cardiovascular Shock due to sepsis possibly from aspiration Acute on chronic heart failure with reduced ejection fraction Hypertensive heart disease - echo showed LVEF60% on 09/16 - Amlodipine 10 mg po daily. Infectious disease Septic shock likely due to aspiration pneumonia Infected Sacral ulcer, unstageable pressure ulcer - on IV antibiotics - culture from sacral ulcer growing enterococcus - blood culture showed no growth - on Vancomycin and cefepime Nephrology Metabolic alkalosis likely from intractable vomiting, resolved KATE on CKD likely due to be VMN from dehydration - Last dialysis on 09/07/24 and hold off dialysis per nephrology. - urine output improved - Epotein alpha-epbx per protocol GI ?Gastroparesis ?Upper GI bleed - KUB shows nonobstructive bowel gas pattern - IV Protonix daily - 4 units of PRBC given, H&H stable - GI on board - CT with PO contrast showed no obstruction. - FOBT positive - Patient passed the swallow evaluation today and on pureed diet Endocrinology Uncontrolled diabetes mellitus with a hyperglycemia Morbid obesity - on insulin sliding scale - lantus 20 unit HS Skin - Unstageble ulcer in the sacral area covered with eschar - Surgery mentioned patient does not need debridement now because no fluctuation or discharge. Diet: Pureed diet DVT prophylaxis: heparin Left upper arm midline placed on 09/18/24 Chavez's catheter placed on 09/09/24 Goals of care discussed with the patient's sister Sheree for over 27 mins. Full code Critical care time spent 81 minutes includes downsizing trach collar Plan discussed with Dr. Flowers Plan discussed with: Other (Sister, RN) My Orders My Orders Orders - ELIO SANTOS RESIDENT Procedure Category Date Status Time Chest Portable XY 09/23/24 Resulted 04:00 Nutritional PHA 09/23/24 In Process Supplements (Glucerna 08:00 Pantoprazole Tablet PHA 09/24/24 In Process (Protonix Tablet) 06:00 Insulin Lantus PHA 09/23/24 In Process (Glargine) (Lantus) 22:00 Acetaminophen Tablet PHA 09/23/24 In Process (Tylenol Tablet) 14:30 Dietary Evaluation Review Recommendations by RD: Protein Supplementation, PPN/TPN Comments: Pt is at high risk of malnutrition due to prolonged vomiting leading to inadequate nutrient intake and hypermetabolic state secondary to acute inflammation. Recommendation: 1) Start PN/TPN per pharmacy 2) If GI is accessible, consider TF Pivot 1.5Cal @ 60ml/hr along with Pro-stat 1 pk TID. Start @ 10ml/hr, increase 10ml/hr Q4H until goal rate is reached. Advance TF rate slowly and gradually to prevent Refeeding syndrome. Water Flush 50ml Q4H if allowed. TF Provision --- TF at goal volume to provide 1440 ml total volume, 2160 kcal (+300 kcal via Pro-stat = 2460 kcal), 135 gm pro (+45 gm via ProStat = 180 gm), 1093 ml H20 (meets 100% est. kcal needs, 100% est. protein needs) 3) Monitor Potassium, Phosphate, Magnesium for Refeeding syndrome 4) Des 1 pk daily For DTI 5) Continue current plan of care Expected Outcomes/Goals: Blood glucose to improve Nutrient intake to meet at least 75% estimated needs FU 2-3 days Food and Nutrition Intake (Mod: <75% est energy req 7days Protein Calorie Malnutrition: Severe Date of Service: September 23, 2024 Billing Provider: ARMANDO FLOWRES MD Common Visit Codes: [id number] CARE 30-74 MIN, [id number] CARE-EACH +30MIN ELIO SANTOS RESIDENT September 23, 2024 17:15 ARMANDO FLOWERS MD September 24, 2024 13:12
--- NOTE | 2024-09-23 21:31 | DVHPN2 ---
Progress Note - Dictate Date Seen: September 23, 2024 Has the PT tested + for MRSA If YES, has PT been informed?: No Medical Necessity Reason Pt with a Central, PICC or Fol: Yes The following are medically ne: Chavez Catheter Reason for chavez catheter: Strict I&O Subjective TRACH DOWN SIZED TO A SHILEY #6 CUFFLESS TODAY BY MD FLOWERS. Patient is tolerating a pureed diet No bowel movement is recorded Supplementation with Glucerna one can p.o. three times a day has been ordered Protonix change to 40 mg p.o. daily Patient has been downgraded to tele vital signs Vital Sign Date Time Temp Pulse Resp B/P (MAP) Pulse Ox O2 Delivery O2 Flow Rate FiO2 09/23/24 20:00 16 99 Trach Collar 6 30 30 09/23/24 20:00 97.9 115 103/48 (66) 97.9 Total Intake and Output 09/22/24 09/22/24 09/23/24 15:00 23:00 07:00 Intake Total 3750 ml 2450 ml 950 ml Output Total 750 ml 1150 ml Balance 3750 ml 1700 ml -200 ml medications Current Medications Medications Dose Ordered Sig/Nikki Route Start Time Stop Time Status Last Admin Dose Admin Diagnostic Test (Pha) 1 strip ACHS 08/19/24 17:00 Cancel Norepinephrine Bitartrate 250 ml @ 3.75 mls/hr Q24H IV 08/19/24 17:15 Cancel Epoetin Aquilino-epbx 10,000 unit TUTHSA@2100 SC 08/26/24 21:00 09/22/24 23:04 10,000 UNIT Heparin Sodium (Porcine) 5,000 units Q12HR SC 08/31/24 22:00 09/23/24 09:18 5,000 UNITS Sodium Chloride 10 ml QSHIFT@10,22 IV 08/31/24 22:00 09/23/24 09:17 10 ML Artificial Tears 2 drop Q4HR PRN EACHEYE 09/02/24 10:45 09/14/24 21:59 2 DROP Dextrose 50 ml UD PRN IV 09/03/24 21:00 Insulin Human Regular AC SC 09/09/24 07:00 09/23/24 17:19 6 UNITS Diagnostic Test (Pha) 1 strip ACHS 09/09/24 07:00 09/23/24 17:19 1 STRIP Aspirin 81 mg DAILY PO 09/12/24 10:00 09/23/24 09:15 81 MG Clopidogrel Bisulfate 75 mg DAILY PO 09/12/24 10:00 09/23/24 09:16 75 MG Atorvastatin Calcium 80 mg HS PO 09/12/24 22:00 09/22/24 21:31 80 MG Vancomycin HCl 0 ml @ 0 mls/hr UD IV 09/14/24 14:15 Lorazepam 1 mg ONCE PRN IV 09/16/24 10:45 Vancomycin HCl 200 ml @ 200 mls/hr Q18H IV 09/16/24 22:00 09/23/24 15:40 200 MLS/HR Amlodipine Besylate 10 mg DAILY PO 09/18/24 10:00 09/23/24 09:16 10 MG Morphine Sulfate 2 mg Q4HPRN PRN IV 09/19/24 16:00 Labetalol HCl 10 mg Q6HPRN PRN IV 09/19/24 16:15 09/20/24 02:57 10 MG Sodium Bicarbonate 50 ml/ Dextrose 1,050 ml @ 75 mls/hr Q14H IV 09/21/24 10:15 09/23/24 18:53 75 MLS/HR Cefepime HCl 50 ml @ 12.5 mls/hr Q8HR IV 09/21/24 22:00 09/23/24 13:08 12.5 MLS/HR Enteral Nutritional Formula 240 ml TIDWM PO 09/23/24 08:00 09/23/24 18:53 240 ML Potassium Chloride 100 ml @ 50 mls/hr Q2H IV 09/23/24 08:00 09/23/24 11:59 UNV Pantoprazole Sodium 40 mg DAILY@0600 PO 09/24/24 06:00 Insulin Glargine 10 units HS SC 09/23/24 22:00 Acetaminophen 650 mg Q6HP PRN PO 09/23/24 14:30 objective General: Awake alert responsive, S/P tracheostomy change HEENT: Head is normocephalic and atraumatic. Pupils are equal, round, and reactive to light Neck: Supple with no cervical lymphadenopathy. Heart: Regular rate without murmur, rub, or gallop. Lungs: Bilateral crackles, most prominent on bases Abdomen: No external sign of injury. Bowel sounds present Abdomen is soft, nontender. Extremities: faint peripheral pulses. There is no clubbing, no cyanosis, and no edema. laboratory and microbiology Laboratory Tests 09/23/24 04:53 Test 09/23/24 04:53 Range/Units Serum Glucose 187 H 74-106 mg/dL Problems(with codes): (1) Leukocytosis (2) Gastroparesis (3) CVA (cerebral vascular accident) (4) Anemia (5) Diabetes type 2, uncontrolled Prognosis Plan Continue pureed diet Continue Glucerna as recommended by nutritional consult Monitor labs Continue physical therapy Discharge planning as per hospitalist Continue Protonix 40 mg p.o. daily If patient does not have a bowel movement within a day or two order him some lactulose and MiraLax and a fleets enema Dietary Evaluation Review Recommendations by RD: Protein Supplementation, PPN/TPN Comments: Pt is at high risk of malnutrition due to prolonged vomiting leading to inadequate nutrient intake and hypermetabolic state secondary to acute inflammation. Recommendation: 1) Start PN/TPN per pharmacy 2) If GI is accessible, consider TF Pivot 1.5Cal @ 60ml/hr along with Pro-stat 1 pk TID. Start @ 10ml/hr, increase 10ml/hr Q4H until goal rate is reached. Advance TF rate slowly and gradually to prevent Refeeding syndrome. Water Flush 50ml Q4H if allowed. TF Provision --- TF at goal volume to provide 1440 ml total volume, 2160 kcal (+300 kcal via Pro-stat = 2460 kcal), 135 gm pro (+45 gm via ProStat = 180 gm), 1093 ml H20 (meets 100% est. kcal needs, 100% est. protein needs) 3) Monitor Potassium, Phosphate, Magnesium for Refeeding syndrome 4) Des 1 pk daily For DTI 5) Continue current plan of care Expected Outcomes/Goals: Blood glucose to improve Nutrient intake to meet at least 75% estimated needs FU 2-3 days Food and Nutrition Intake (Mod: <75% est energy req 7days Protein Calorie Malnutrition: Severe Plan discussed with: Other (LAURA Nurse) ALDAIR YOUSSEF MD September 23, 2024 21:31
[2024-09-23] MEDS: INSULIN LANTUS (GLARGINE) 1 /0.01ml (100units/ml) SC SCH (22:23)
[2024-09-24] VITALS (11 sets, daily range): BP systolic 123–152; BP diastolic 70–86; PULSE 60–110; RESP 16–21; TEMP 97.4–98.2; O2SAT 95–99
[2024-09-24 05:54] LABS: Basophils # (auto) 0.2 10 ^3/uL (0-0.2); Basophils % (auto) 0.8 % (0.0-2.0); Eosinophils # (auto) 0.5 10 ^3/uL (0-0.8); Eosinophils % (auto) 2.2 % (0.0-7.0); Hematocrit 31.6 % (41.0-53.0); Hemoglobin 10.6 g/dL (13.5-17.5); Lymphocytes # (auto) 1.8 10 ^3/uL (0.4-5.4); Lymphocytes % (auto) 7.5 % (10.0-50.0); Mean Corpuscular Hemoglobin 28.8 pg (28.0-32.0); Mean Corpuscular Hgb Conc. 33.4 g/dL (32.0-36.0); Mean Corpuscular Volume 86.2 fL (80.0-100.0); Monocytes # (auto) 1.7 10 ^3/uL (0-1.3); Neutrophils # (auto) 19.8 10 ^3/uL (1.6-8.6); Neutrophils % (auto) 82.5 % (37.0-80.0); Platelet Count (auto) 332 10^3/uL (140-450); Red Blood Cells 3.67 10^6/uL (4.5-5.90); Red Cell Distribution Width 15.5 % (11.8-14.3)
[2024-09-24 06:15] LABS: Chloride 104 mmol/L (98-107); Sodium 137 mmol/L (136-145)
[2024-09-24 06:16] LABS: Anion Gap 13 (5-15); Calcium 8.9 mg/dL (8.7-10.4)
[2024-09-24 06:21] LABS: BUN/Creatinine Ratio 12.1 (10.0-20.0); Blood Urea Nitrogen 14 mg/dL (9-23)
[2024-09-24 06:32] LABS: Carbon Dioxide 20 mmol/L (20-31); Glucose 213 mg/dL (74-106); Potassium 3.3 mmol/L (3.5-5.1)
[2024-09-24] MEDS: PANTOPRAZOLE 40 MG TAB PO SCH (06:58)
[2024-09-24] MEDS: POTASSIUM EFFERVESENT TAB 25 MEQ PO ONE (09:16)
[2024-09-24] MEDS: levoFLOXacin 500MG 100 ML IV ONE (17:45)
--- NOTE | 2024-09-24 18:40 | DVHPNRES ---
Progress Note Date Seen: September 24, 2024 Resident Creating Document: ELIO SANTOS RESIDENT Has the PT tested + for MRSA If YES, has PT been informed?: No Medical Necessity Reason Pt with a Central, PICC or Fol: Yes The following are medically ne: Chavez Catheter Reason for chavez catheter: Strict I&O Subjective Review of Systems Patient seen and examined on the bedside He is alert, and orientedX3 He is on trach collar 6 with 6L O2 . Downgraded to telemetry Patient is on pureed diet. Objective vital signs Vital Sign Date Time Temp Pulse Resp B/P (MAP) Pulse Ox O2 Delivery O2 Flow Rate FiO2 09/24/24 16:32 98.2 110 16 123/76 (92) 99 98.2 09/24/24 10:30 6.0 30 09/24/24 06:51 Trach Collar Total Intake and Output 09/23/24 09/23/24 09/24/24 15:00 23:00 07:00 Intake Total 1725.0 ml 1275.0 ml 50 ml Output Total 1000 ml 1250 ml Balance 1725.0 ml 275.0 ml -1200 ml medications Current Medications Medications Dose Ordered Sig/Nikki Route Start Time Stop Time Status Last Admin Dose Admin Diagnostic Test (Pha) 1 strip ACHS 08/19/24 17:00 Cancel Norepinephrine Bitartrate 250 ml @ 3.75 mls/hr Q24H IV 08/19/24 17:15 Cancel Epoetin Aquilino-epbx 10,000 unit TUTHSA@2100 SC 08/26/24 21:00 09/22/24 23:04 10,000 UNIT Heparin Sodium (Porcine) 5,000 units Q12HR SC 08/31/24 22:00 09/24/24 09:38 5,000 UNITS Sodium Chloride 10 ml QSHIFT@10,22 IV 08/31/24 22:00 09/24/24 09:21 10 ML Artificial Tears 2 drop Q4HR PRN EACHEYE 09/02/24 10:45 09/14/24 21:59 2 DROP Dextrose 50 ml UD PRN IV 09/03/24 21:00 Insulin Human Regular AC SC 09/09/24 07:00 09/24/24 11:18 6 UNITS Diagnostic Test (Pha) 1 strip ACHS 09/09/24 07:00 09/24/24 11:09 1 STRIP Aspirin 81 mg DAILY PO 09/12/24 10:00 09/24/24 09:17 81 MG Clopidogrel Bisulfate 75 mg DAILY PO 09/12/24 10:00 09/24/24 09:17 75 MG Atorvastatin Calcium 80 mg HS PO 09/12/24 22:00 09/23/24 22:17 80 MG Vancomycin HCl 0 ml @ 0 mls/hr UD IV 09/14/24 14:15 Vancomycin HCl 200 ml @ 200 mls/hr Q18H IV 09/16/24 22:00 09/24/24 09:39 200 MLS/HR Amlodipine Besylate 10 mg DAILY PO 09/18/24 10:00 09/24/24 09:18 10 MG Morphine Sulfate 2 mg Q4HPRN PRN IV 09/19/24 16:00 Labetalol HCl 10 mg Q6HPRN PRN IV 09/19/24 16:15 09/20/24 02:57 10 MG Enteral Nutritional Formula 240 ml TIDWM PO 09/23/24 08:00 09/24/24 18:29 240 ML Potassium Chloride 100 ml @ 50 mls/hr Q2H IV 09/23/24 08:00 09/23/24 11:59 UNV Pantoprazole Sodium 40 mg DAILY@0600 PO 09/24/24 06:00 09/24/24 06:58 40 MG Acetaminophen 650 mg Q6HP PRN PO 09/23/24 14:30 Insulin Glargine 15 units HS SC 09/24/24 22:00 Levofloxacin/ Dextrose 100 ml @ 100 mls/hr DAILY IV 09/25/24 10:00 Examination Examination: Constitutional: Patient is alert and oriented X3 and trach collar Gen - mild conjuctival pallor, no icterus, no cyanosis, no clubbing, no LAD, 1+ edema in the feet . Skin - Patients skin is warm and dry. HEENT - normocephalic, atraumatic, moist mucous membranes. Neck - full ROM, no LAD, no jvd Pulmonary - B/L air entry present, diffuse rales, no wheezing, no stridor. cardiovascular - regular S1,S2 heard, no added sounds, no murmurs heard. GI - soft abdomen. no hepatospleenomegaly. bowel sounds hypoactive sacrum- ulcer seen , stage 3 ulcer with black eschar and surrounding pinkish granulation tissue. Neurological - Strength at 5/5 X3 ext, Normal tone, Sensation intact, grossly intact cranial nerves laboratory and microbiology Laboratory Tests 09/24/24 05:22 Test 09/24/24 05:22 Range/Units Serum Glucose 213 H 74-106 mg/dL Microbiology Date/Time Source Procedure Growth Status 09/16/24 16:00 Sputum Gram Stain - Final Complete 09/16/24 16:00 Sputum Respiratory Culture - Final Complete 09/10/24 10:47 Catheter Tip Other Aerobic Culture - Final Complete 09/04/24 10:19 Blood Blood Culture - Final NO GROWTH AFTER 5 DAYS OF INCUBATION. Complete 08/31/24 14:00 Urine - [place] Urine Culture - Final Complete Labs and/or images reviewed: Labs reviewed by me, Image(s) reviewed by me Problem List/Assessment/Plan Problem List/Assessment/Plan Assessment and plan: Neurology Acute ischemic stroke in the rt cerebellar hemisphere and Left frontoparietal Acute metabolic encephalopathy likely due to sepsis/HHS - MRI demonstrated Acute infarction within the right cerebellar hemisphere measuring 3.2 x 0.7 cm. Left frontoparietal increased T2 signal with mild diffusion restriction signal. This could represent subacute infarct or underlying mass/lesion. - on mechanical ventilation - S/P tracheostomy - Patient passed the window period of tPA therapy for ischemic stroke and also he has a recent history of GI bleeding in 1 week. - Continue aspirin 81 mg daily, clopidogrel 75 mg daily and atorvastatin 80 mg at HS - Neurology evaluated the patient and recommended ESTHER for possible identification of the source of the emboli for ischemic stroke. EEG demonstrated borderline normal EEG and no focal lateralized or epileptiform features noted. - Patient underwent ESTHER today and revealed there are no significant Doppler anomalies. No significant tricuspid mitral or aortic insufficiency. Pulmonic insufficiency was not visualized. No pericardial effusion masses or vegetations discernible. No intracardiac masses. No intra-atrial shunt. No VSD or ASD noted. Bubble studies did not reveal intra-atrial shunting or crossover Respiratory Acute hypoxic respiratory failure Probable aspiration pneumonia ARDS - S/P tracheostomy and on trach collar with 6L O2 - chest x-ray shows bilateral patchy opacities - ABG compensated - duonebs q6hr - IV antibiotics Vancomycin and cefepime - sputum culture showed growth of yeast Cardiovascular Shock due to sepsis possibly from aspiration Acute on chronic heart failure with reduced ejection fraction Hypertensive heart disease - echo showed LVEF60% on 09/16 - Amlodipine 10 mg po daily. Infectious disease Septic shock likely due to aspiration pneumonia Infected Sacral ulcer, unstageable pressure ulcer - on IV antibiotics - culture from sacral ulcer growing enterococcus - blood culture showed no growth - on Vancomycin and levofloxacin Nephrology Metabolic alkalosis likely from intractable vomiting, resolved KATE on CKD likely due to be VMN from dehydration - Last dialysis on 09/07/24 and hold off dialysis per nephrology. - urine output improved - Epotein alpha-epbx per protocol GI ?Gastroparesis ?Upper GI bleed - KUB shows nonobstructive bowel gas pattern - IV Protonix daily - 4 units of PRBC given, H&H stable - GI on board - CT with PO contrast showed no obstruction. - FOBT positive - On pureed diet Endocrinology Uncontrolled diabetes mellitus with a hyperglycemia Morbid obesity - on insulin sliding scale - lantus 20 unit HS Skin - Unstageble ulcer in the sacral area covered with eschar - Surgery mentioned patient does not need debridement now because no fluctuation or discharge. Diet: Pureed diet DVT prophylaxis: heparin Left upper arm midline placed on 09/18/24 Chavez's catheter placed on 09/09/24 Goals of care discussed with the patient's sister Sheree for over 27 mins. Full code Critical care time spent 41 minutes Plan discussed with Dr. Flowers Plan discussed with: Other (Sister, RN) My Orders My Orders Orders - ELIO SANTOS RESIDENT Procedure Category Date Status Time Levofloxacin 500mg PHA 09/25/24 In Process (Levaquin 500mg/ 100m 10:00 Levofloxacin 500mg PHA 09/24/24 In Process (Levaquin 500mg/ 100m 17:45 Dietary Evaluation Review Recommendations by RD: Protein Supplementation, PPN/TPN Comments: Pt is at high risk of malnutrition due to prolonged vomiting leading to inadequate nutrient intake and hypermetabolic state secondary to acute inflammation. Recommendation: 1) Start PN/TPN per pharmacy 2) If GI is accessible, consider TF Pivot 1.5Cal @ 60ml/hr along with Pro-stat 1 pk TID. Start @ 10ml/hr, increase 10ml/hr Q4H until goal rate is reached. Advance TF rate slowly and gradually to prevent Refeeding syndrome. Water Flush 50ml Q4H if allowed. TF Provision --- TF at goal volume to provide 1440 ml total volume, 2160 kcal (+300 kcal via Pro-stat = 2460 kcal), 135 gm pro (+45 gm via ProStat = 180 gm), 1093 ml H20 (meets 100% est. kcal needs, 100% est. protein needs) 3) Monitor Potassium, Phosphate, Magnesium for Refeeding syndrome 4) Des 1 pk daily For DTI 5) Continue current plan of care Expected Outcomes/Goals: Blood glucose to improve Nutrient intake to meet at least 75% estimated needs FU 2-3 days Food and Nutrition Intake (Mod: <75% est energy req 7days Protein Calorie Malnutrition: Severe Date of Service: September 24, 2024 Billing Provider: ARMANDO FLOWERS MD Common Visit Codes: 75597-[id number] C[facility] 30-74 MIN ELIO SANTOS RESIDENT September 24, 2024 18:40 ARMANDO FLOWERS MD September 27, 2024 21:47
[2024-09-24] MEDS: INSULIN LANTUS (GLARGINE) 1 /0.01ml (100units/ml) SC SCH (21:17)
[2024-09-25] VITALS (11 sets, daily range): BP systolic 115–143; BP diastolic 64–86; PULSE 97–107; RESP 17–20; TEMP 97.8–98.5; O2SAT 96–99
[2024-09-25 06:41] LABS: Chloride 104 mmol/L (98-107)
[2024-09-25 06:42] LABS: Anion Gap 11 (5-15); Carbon Dioxide 22 mmol/L (20-31); Sodium 137 mmol/L (136-145)
[2024-09-25 06:43] LABS: Calcium 8.9 mg/dL (8.7-10.4)
[2024-09-25 06:48] LABS: Blood Urea Nitrogen 12 mg/dL (9-23)
[2024-09-25 06:56] LABS: Glucose 169 mg/dL (74-106); Potassium 3.3 mmol/L (3.5-5.1)
[2024-09-25 07:21] LABS: Basophils # (auto) 0.3 10 ^3/uL (0-0.2); Basophils % (auto) 1.3 % (0.0-2.0); Eosinophils # (auto) 0.6 10 ^3/uL (0-0.8); Hematocrit 32.2 % (41.0-53.0); Hemoglobin 10.8 g/dL (13.5-17.5); Lymphocytes % (auto) 9.9 % (10.0-50.0); Mean Corpuscular Hemoglobin 29.4 pg (28.0-32.0); Mean Corpuscular Hgb Conc. 33.3 g/dL (32.0-36.0); Mean Corpuscular Volume 88.3 fL (80.0-100.0); Monocytes # (auto) 1.6 10 ^3/uL (0-1.3); Monocytes % (auto) 7.9 % (0.0-12.0); Neutrophils # (auto) 15.7 10 ^3/uL (1.6-8.6); Neutrophils % (auto) 77.9 % (37.0-80.0); Platelet Count (auto) 298 10^3/uL (140-450); Red Blood Cells 3.65 10^6/uL (4.5-5.90); Red Cell Distribution Width 15.2 % (11.8-14.3); White Blood Cell 20.1 10^3/uL (4.4-10.8)
[2024-09-25] MEDS: levoFLOXacin 500MG 100 ML IV SCH (09:47)
[2024-09-25] MEDS: MAGNESIUM SULFATE 1GM/100ML 100 ML IV ONE (10:41)
[2024-09-25] MEDS: POTASSIUM EFFERVESENT TAB 25 MEQ PO ONE (10:42)
--- NOTE | 2024-09-25 16:33 | DVHPNRES ---
Progress Note Date Seen: September 25, 2024 Resident Creating Document: ELIO SANTOS RESIDENT Has the PT tested + for MRSA If YES, has PT been informed?: No Medical Necessity Reason Pt with a Central, PICC or Fol: Yes The following are medically ne: Chavez Catheter Reason for chavez catheter: Strict I&O Subjective Review of Systems Patient seen and examined on the bedside He is alert, and orientedX3 He is on trach collar 6 with 6L O2 . Downgraded to telemetry Patient is on pureed diet. Objective vital signs Vital Sign Date Time Temp Pulse Resp B/P (MAP) Pulse Ox O2 Delivery O2 Flow Rate FiO2 09/25/24 15:50 98 Cool Aerosol 6 28 28 09/25/24 13:00 98.5 102 18 136/86 (103) 98.5 Total Intake and Output 09/24/24 09/24/24 09/25/24 15:00 23:00 07:00 Intake Total 250 ml 1010 ml Output Total 200 ml 1600 ml Balance 50 ml -590 ml medications Current Medications Medications Dose Ordered Sig/Nikki Route Start Time Stop Time Status Last Admin Dose Admin Diagnostic Test (Pha) 1 strip ACHS 08/19/24 17:00 Cancel Norepinephrine Bitartrate 250 ml @ 3.75 mls/hr Q24H IV 08/19/24 17:15 Cancel Epoetin Aquilino-epbx 10,000 unit TUTHSA@2100 SC 08/26/24 21:00 09/24/24 21:01 10,000 UNIT Heparin Sodium (Porcine) 5,000 units Q12HR SC 08/31/24 22:00 09/25/24 10:02 5,000 UNITS Sodium Chloride 10 ml QSHIFT@10,22 IV 08/31/24 22:00 09/25/24 09:45 10 ML Artificial Tears 2 drop Q4HR PRN EACHEYE 09/02/24 10:45 09/14/24 21:59 2 DROP Dextrose 50 ml UD PRN IV 09/03/24 21:00 Insulin Human Regular AC SC 09/09/24 07:00 09/25/24 10:46 6 UNITS Diagnostic Test (Pha) 1 strip ACHS 09/09/24 07:00 09/25/24 10:42 1 STRIP Aspirin 81 mg DAILY PO 09/12/24 10:00 09/25/24 09:44 81 MG Clopidogrel Bisulfate 75 mg DAILY PO 09/12/24 10:00 09/25/24 09:44 75 MG Atorvastatin Calcium 80 mg HS PO 09/12/24 22:00 09/24/24 21:08 80 MG Vancomycin HCl 0 ml @ 0 mls/hr UD IV 09/14/24 14:15 Vancomycin HCl 200 ml @ 200 mls/hr Q18H IV 09/16/24 22:00 09/25/24 03:45 200 MLS/HR Amlodipine Besylate 10 mg DAILY PO 09/18/24 10:00 09/25/24 09:45 10 MG Morphine Sulfate 2 mg Q4HPRN PRN IV 09/19/24 16:00 Labetalol HCl 10 mg Q6HPRN PRN IV 09/19/24 16:15 09/20/24 02:57 10 MG Enteral Nutritional Formula 240 ml TIDWM PO 09/23/24 08:00 09/25/24 12:00 240 ML Potassium Chloride 100 ml @ 50 mls/hr Q2H IV 09/23/24 08:00 09/23/24 11:59 UNV Pantoprazole Sodium 40 mg DAILY@0600 PO 09/24/24 06:00 09/25/24 05:11 40 MG Acetaminophen 650 mg Q6HP PRN PO 09/23/24 14:30 Insulin Glargine 15 units HS SC 09/24/24 22:00 09/24/24 21:17 15 UNITS Levofloxacin/ Dextrose 100 ml @ 100 mls/hr DAILY IV 09/25/24 10:00 09/25/24 09:47 100 MLS/HR Examination Examination: Constitutional: Patient is alert and oriented X3 and trach collar Gen - mild conjuctival pallor, no icterus, no cyanosis, no clubbing, no LAD, 1+ edema in the feet . Skin - Patients skin is warm and dry. HEENT - normocephalic, atraumatic, moist mucous membranes. Neck - full ROM, no LAD, no jvd Pulmonary - B/L air entry present, diffuse rales, no wheezing, no stridor. cardiovascular - regular S1,S2 heard, no added sounds, no murmurs heard. GI - soft abdomen. no hepatospleenomegaly. bowel sounds hypoactive sacrum- ulcer seen , stage 3 ulcer with black eschar and surrounding pinkish granulation tissue. Neurological - Strength at / X3 ext, Normal tone, Sensation intact, grossly intact cranial nerves laboratory and microbiology Laboratory Tests 09/25/24 05:45 Test 09/25/24 05:45 Range/Units Serum Glucose 169 H 74-106 mg/dL Microbiology Date/Time Source Procedure Growth Status 09/16/24 16:00 Sputum Gram Stain - Final Complete 09/16/24 16:00 Sputum Respiratory Culture - Final Complete 09/10/24 10:47 Catheter Tip Other Aerobic Culture - Final Complete 09/04/24 10:19 Blood Blood Culture - Final NO GROWTH AFTER 5 DAYS OF INCUBATION. Complete 08/31/24 14:00 Urine - [place] Urine Culture - Final Complete Labs and/or images reviewed: Labs reviewed by me, Image(s) reviewed by me Problem List/Assessment/Plan Problem List/Assessment/Plan Assessment and plan: Neurology Acute ischemic stroke in the rt cerebellar hemisphere and Left frontoparietal Acute metabolic encephalopathy likely due to sepsis/HHS - MRI demonstrated Acute infarction within the right cerebellar hemisphere measuring 3.2 x 0.7 cm. Left frontoparietal increased T2 signal with mild diffusion restriction signal. This could represent subacute infarct or underlying mass/lesion. - on mechanical ventilation - S/P tracheostomy - Patient passed the window period of tPA therapy for ischemic stroke and also he has a recent history of GI bleeding in 1 week. - Continue aspirin 81 mg daily, clopidogrel 75 mg daily and atorvastatin 80 mg at HS - Neurology evaluated the patient and recommended ESTHER for possible identification of the source of the emboli for ischemic stroke. EEG demonstrated borderline normal EEG and no focal lateralized or epileptiform features noted. - Patient underwent ESTHER today and revealed there are no significant Doppler anomalies. No significant tricuspid mitral or aortic insufficiency. Pulmonic insufficiency was not visualized. No pericardial effusion masses or vegetations discernible. No intracardiac masses. No intra-atrial shunt. No VSD or ASD noted. Bubble studies did not reveal intra-atrial shunting or crossover Respiratory Acute hypoxic respiratory failure Probable aspiration pneumonia ARDS - S/P tracheostomy and on trach collar with 6L O2 - chest x-ray shows bilateral patchy opacities - ABG compensated - duonebs q6hr - IV antibiotics Vancomycin and cefepime - sputum culture showed growth of yeast Cardiovascular Shock due to sepsis possibly from aspiration Acute on chronic heart failure with reduced ejection fraction Hypertensive heart disease - echo showed LVEF60% on 09/16 - Amlodipine 10 mg po daily. Infectious disease Septic shock likely due to aspiration pneumonia Infected Sacral ulcer, unstageable pressure ulcer - on IV antibiotics - culture from sacral ulcer growing enterococcus - blood culture showed no growth - on Vancomycin and levofloxacin Nephrology Metabolic alkalosis likely from intractable vomiting, resolved KATE on CKD likely due to be VMN from dehydration - Last dialysis on 09/07/24 and hold off dialysis per nephrology. - urine output improved - Epotein alpha-epbx per protocol GI ?Gastroparesis ?Upper GI bleed - KUB shows nonobstructive bowel gas pattern - IV Protonix daily - 4 units of PRBC given, H&H stable - GI on board - CT with PO contrast showed no obstruction. - FOBT positive - On pureed diet Endocrinology Uncontrolled diabetes mellitus with a hyperglycemia Morbid obesity - on insulin sliding scale - lantus 20 unit HS Skin - Unstageble ulcer in the sacral area covered with eschar - Surgery mentioned patient does not need debridement now because no fluctuation or discharge. Diet: Pureed diet DVT prophylaxis: heparin Left upper arm midline placed on 09/18/24 Chavez's catheter placed on 09/09/24 Goals of care discussed with the patient's sister Sheree for over 27 mins. Full code Critical care time spent 41 minutes Plan discussed with Dr. Ochoa Plan discussed with: Patient, Other (Sister, RN) My Orders My Orders Orders - ELIO SANTOS RESIDENT Procedure Category Date Status Time Levofloxacin 500mg PHA 09/25/24 In Process (Levaquin 500mg/ 100m 10:00 Dietary Evaluation Review Recommendations by RD: Protein Supplementation, PPN/TPN Comments: Pt is at high risk of malnutrition due to prolonged vomiting leading to inadequate nutrient intake and hypermetabolic state secondary to acute inflammation. Recommendation: 1) Start PN/TPN per pharmacy 2) If GI is accessible, consider TF Pivot 1.5Cal @ 60ml/hr along with Pro-stat 1 pk TID. Start @ 10ml/hr, increase 10ml/hr Q4H until goal rate is reached. Advance TF rate slowly and gradually to prevent Refeeding syndrome. Water Flush 50ml Q4H if allowed. TF Provision --- TF at goal volume to provide 1440 ml total volume, 2160 kcal (+300 kcal via Pro-stat = 2460 kcal), 135 gm pro (+45 gm via ProStat = 180 gm), 1093 ml H20 (meets 100% est. kcal needs, 100% est. protein needs) 3) Monitor Potassium, Phosphate, Magnesium for Refeeding syndrome 4) Des 1 pk daily For DTI 5) Continue current plan of care Expected Outcomes/Goals: Blood glucose to improve Nutrient intake to meet at least 75% estimated needs FU 2-3 days Food and Nutrition Intake (Mod: <75% est energy req 7days Protein Calorie Malnutrition: Severe DANIELLEELIO RESIDENT September 25, 2024 16:33
[2024-09-26] VITALS (10 sets, daily range): BP systolic 109–133; BP diastolic 58–79; PULSE 93–108; RESP 18–22; TEMP 97.6–98.7; O2SAT 95–99
[2024-09-26 06:03] LABS: Basophils # (auto) 0.1 10 ^3/uL (0-0.2); Basophils % (auto) 0.7 % (0.0-2.0); Eosinophils # (auto) 0.6 10 ^3/uL (0-0.8); Eosinophils % (auto) 3.3 % (0.0-7.0); Hematocrit 33.4 % (41.0-53.0); Hemoglobin 11.2 g/dL (13.5-17.5); Lymphocytes # (auto) 2.1 10 ^3/uL (0.4-5.4); Lymphocytes % (auto) 11.7 % (10.0-50.0); Mean Corpuscular Hemoglobin 29.2 pg (28.0-32.0); Mean Corpuscular Hgb Conc. 33.6 g/dL (32.0-36.0); Mean Corpuscular Volume 86.9 fL (80.0-100.0); Monocytes # (auto) 1.5 10 ^3/uL (0-1.3); Monocytes % (auto) 8.4 % (0.0-12.0); Neutrophils # (auto) 13.6 10 ^3/uL (1.6-8.6); Neutrophils % (auto) 75.9 % (37.0-80.0); Platelet Count (auto) 312 10^3/uL (140-450); Red Blood Cells 3.84 10^6/uL (4.5-5.90); Red Cell Distribution Width 15.6 % (11.8-14.3); White Blood Cell 17.8 10^3/uL (4.4-10.8)
[2024-09-26 06:16] LABS: Anion Gap 12 (5-15); Carbon Dioxide 22 mmol/L (20-31); Chloride 104 mmol/L (98-107); Potassium 3.8 mmol/L (3.5-5.1); Sodium 138 mmol/L (136-145)
[2024-09-26 06:22] LABS: Blood Urea Nitrogen 11 mg/dL (9-23)
[2024-09-26 06:25] LABS: Glucose 178 mg/dL (74-106)
--- NOTE | 2024-09-26 16:28 | DVHPN2 ---
Subjective in bed resting Reviewed: Care Plan, H&P, Labs, Medications, Previous Orders, Radiology, Other (Consultations) Changes from previous H/P or p: No Changes General: Per HPI Objective Vitals Vital Signs Date Time Temp Pulse Resp B/P (MAP) Pulse Ox O2 Delivery O2 Flow Rate FiO2 09/26/24 13:00 98.2 103 20 109/58 (75) 96 98.2 09/26/24 05:44 Trach Collar 6.0 09/26/24 05:44 28 28 Intake/Output Intake and Output 09/26/24 07:00 Intake Total 2325 ml Output Total 3275 ml Balance -950 ml Intake Oral 2125 ml IV Total 200 ml Output Urine Total 3275 ml General Appearance: Other (Intubated and sedated) HEENT: Atraumatic Lungs: Other (Mechanical ventilation sounds) Cardiovascular: Normal S1, Normal S2, Other (Tachycardia) Abdomen: Normal bowel sounds, Soft Genitourinary: Other (Friedman's) Neuro: Other (Intubated and sedated) Psych/Mental Status: Other (Intubated and sedated) Medications Current Medications Medications Dose Ordered Sig/Nikki Route Start Time Stop Time Status Last Admin Dose Admin Diagnostic Test (Pha) 1 strip ACHS 08/19/24 17:00 Cancel Norepinephrine Bitartrate 250 ml @ 3.75 mls/hr Q24H IV 08/19/24 17:15 Cancel Epoetin Aquilino-epbx 10,000 unit TUTHSA@2100 MT 08/26/24 21:00 09/24/24 21:01 10,000 UNIT Heparin Sodium (Porcine) 5,000 units Q12HR SC 08/31/24 22:00 09/26/24 10:26 5,000 UNITS Sodium Chloride 10 ml QSHIFT@10,22 IV 08/31/24 22:00 09/26/24 10:29 10 ML Artificial Tears 2 drop Q4HR PRN EACHEYE 09/02/24 10:45 09/14/24 21:59 2 DROP Dextrose 50 ml UD PRN IV 09/03/24 21:00 Insulin Human Regular AC SC 09/09/24 07:00 09/26/24 11:57 9 UNITS Diagnostic Test (Pha) 1 strip ACHS 09/09/24 07:00 09/26/24 11:50 1 STRIP Aspirin 81 mg DAILY PO 09/12/24 10:00 09/26/24 10:28 81 MG Clopidogrel Bisulfate 75 mg DAILY PO 09/12/24 10:00 09/26/24 10:28 75 MG Atorvastatin Calcium 80 mg HS PO 09/12/24 22:00 09/25/24 21:19 80 MG Vancomycin HCl 200 ml @ 200 mls/hr Q18H IV 09/16/24 22:00 09/26/24 15:42 200 MLS/HR Amlodipine Besylate 10 mg DAILY PO 09/18/24 10:00 09/26/24 10:28 10 MG Morphine Sulfate 2 mg Q4HPRN PRN IV 09/19/24 16:00 Labetalol HCl 10 mg Q6HPRN PRN IV 09/19/24 16:15 09/20/24 02:57 10 MG Enteral Nutritional Formula 240 ml TIDWM PO 09/23/24 08:00 09/26/24 12:41 240 ML Potassium Chloride 100 ml @ 50 mls/hr Q2H IV 09/23/24 08:00 09/23/24 11:59 UNV Pantoprazole Sodium 40 mg DAILY@0600 PO 09/24/24 06:00 09/26/24 05:21 40 MG Acetaminophen 650 mg Q6HP PRN PO 09/23/24 14:30 Insulin Glargine 15 units HS SC 09/24/24 22:00 09/25/24 21:46 15 UNITS Levofloxacin/ Dextrose 100 ml @ 100 mls/hr DAILY IV 09/25/24 10:00 09/26/24 10:27 100 MLS/HR Laboratory Results Laboratory Tests 09/26/24 05:32 Chemistry Test 09/26/24 05:32 Calcium Level 10.0 mg/dL (8.7-10.4) Urinalysis Test 08/19/24 11:25 09/21/24 14:40 Urine Renal Epithelial Cells Few /hpf (None Seen) Urine Amorphous Crystals Few /hpf (None Seen) Urine Creatinine 77.13 mg/dL (30.0-125.0) Urine Sodium 15 mmol/L (40-220) L Urine Color Light-yellow (Yellow) Urine Clarity Turbid (Clear) H Urine pH 5.5 (5.0-9.0) Urine Specific [place] 1.020 (1.001-1.035) Urine Protein 1+ (Negative) H Urine Ketones Negative (Negative) Urine Blood 1+ /uL (Negative) H Urine Nitrite Negative (Negative) Urine Bilirubin Negative (Negative) Urine Urobilinogen Normal mg/dL (Negative) Urine Leukocyte Esterase 1+ /uL (Negative) Urine RBC 19 /hpf (0 - 3) Urine Microscopic WBC 14 /HPF (0-3) H Urine Squamous Epithelial Cells Few /hpf (<5) Urine Bacteria Few /hpf (None Seen) H Urine Hyaline Casts Few /lpf (0 - 2) Urine Mucus Few (None Seen) Urine Sperm Present /hpf (None Seen) Urine Glucose 1+ mg/dL (Normal) H Microbiology Microbiology Date/Time Source Procedure Growth Status 09/16/24 16:00 Sputum Gram Stain - Final Complete 09/16/24 16:00 Sputum Respiratory Culture - Final Complete 09/10/24 10:47 Catheter Tip Other Aerobic Culture - Final Complete 09/04/24 10:19 Blood Blood Culture - Final NO GROWTH AFTER 5 DAYS OF INCUBATION. Complete 08/31/24 14:00 Urine - [place] Urine Culture - Final Complete Assessment/Plan Assessment/Plan Assessment and plan: Neurology Acute ischemic stroke in the rt cerebellar hemisphere and Left frontoparietal Acute metabolic encephalopathy likely due to sepsis/HHS - MRI demonstrated Acute infarction within the right cerebellar hemisphere measuring 3.2 x 0.7 cm. Left frontoparietal increased T2 signal with mild diffusion restriction signal. This could represent subacute infarct or underlying mass/lesion. - on mechanical ventilation - S/P tracheostomy - Patient passed the window period of tPA therapy for ischemic stroke and also he has a recent history of GI bleeding in 1 week. - Continue aspirin 81 mg daily, clopidogrel 75 mg daily and atorvastatin 80 mg at HS - Neurology evaluated the patient and recommended ESTHER for possible identification of the source of the emboli for ischemic stroke. EEG demonstrated borderline normal EEG and no focal lateralized or epileptiform features noted. - Patient underwent ESTHER today and revealed there are no significant Doppler anomalies. No significant tricuspid mitral or aortic insufficiency. Pulmonic insufficiency was not visualized. No pericardial effusion masses or vegetations discernible. No intracardiac masses. No intra-atrial shunt. No VSD or ASD noted. Bubble studies did not reveal intra-atrial shunting or crossover Respiratory Acute hypoxic respiratory failure Probable aspiration pneumonia ARDS - S/P tracheostomy and on trach collar with 6L O2 - chest x-ray shows bilateral patchy opacities - ABG compensated - duonebs q6hr - IV antibiotics Vancomycin and cefepime - sputum culture showed growth of yeast Cardiovascular Shock due to sepsis possibly from aspiration Acute on chronic heart failure with reduced ejection fraction Hypertensive heart disease - echo showed LVEF60% on 09/16 - Amlodipine 10 mg po daily. Infectious disease Septic shock likely due to aspiration pneumonia Infected Sacral ulcer, unstageable pressure ulcer - on IV antibiotics - culture from sacral ulcer growing enterococcus - blood culture showed no growth - on Vancomycin and levofloxacin Nephrology Metabolic alkalosis likely from intractable vomiting, resolved KATE on CKD likely due to be VMN from dehydration - Last dialysis on 09/07/24 and hold off dialysis per nephrology. - urine output improved - Epotein alpha-epbx per protocol GI ?Gastroparesis ?Upper GI bleed - KUB shows nonobstructive bowel gas pattern - IV Protonix daily - 4 units of PRBC given, H&H stable - GI on board - CT with PO contrast showed no obstruction. - FOBT positive - On pureed diet Endocrinology Uncontrolled diabetes mellitus with a hyperglycemia Morbid obesity - on insulin sliding scale - lantus 20 unit HS Skin - Unstageble ulcer in the sacral area covered with eschar - Surgery mentioned patient does not need debridement now because no fluctuation or discharge. Diet: Pureed diet DVT prophylaxis: heparin Left upper arm midline placed on 09/18/24 Friedman's catheter placed on 09/09/24 Plan discussed with: Patient Date of Service: September 26, 2024 Billing Provider: GHISLAINE KATHLEEN MD Common Visit Codes: [id number] INP/OBS CARE(HIGH) GHISLAINE KATHLEEN MD September 26, 2024 16:28
--- NOTE | 2024-09-26 17:51 | DVHPN2 ---
Progress Note - Dictate Date Seen: September 26, 2024 Has the PT tested + for MRSA If YES, has PT been informed?: No Medical Necessity Reason Pt with a Central, PICC or Fol: Yes The following are medically ne: Chavez Catheter Reason for chavez catheter: Strict I&O vital signs Vital Sign Date Time Temp Pulse Resp B/P (MAP) Pulse Ox O2 Delivery O2 Flow Rate FiO2 09/26/24 13:00 98.2 103 20 109/58 (75) 96 98.2 09/26/24 05:44 Trach Collar 6.0 09/26/24 05:44 28 28 Total Intake and Output 09/25/24 09/25/24 09/26/24 15:00 23:00 07:00 Intake Total 200 ml 625 ml 1500 ml Output Total 875 ml 2400 ml Balance 200 ml -250 ml -900 ml medications Current Medications Medications Dose Ordered Sig/Nikki Route Start Time Stop Time Status Last Admin Dose Admin Diagnostic Test (Pha) 1 strip ACHS 08/19/24 17:00 Cancel Norepinephrine Bitartrate 250 ml @ 3.75 mls/hr Q24H IV 08/19/24 17:15 Cancel Epoetin Aquilino-epbx 10,000 unit TUTHSA@2100 SC 08/26/24 21:00 09/24/24 21:01 10,000 UNIT Heparin Sodium (Porcine) 5,000 units Q12HR SC 08/31/24 22:00 09/26/24 10:26 5,000 UNITS Sodium Chloride 10 ml QSHIFT@10,22 IV 08/31/24 22:00 09/26/24 10:29 10 ML Artificial Tears 2 drop Q4HR PRN EACHEYE 09/02/24 10:45 09/14/24 21:59 2 DROP Dextrose 50 ml UD PRN IV 09/03/24 21:00 Insulin Human Regular AC SC 09/09/24 07:00 09/26/24 11:57 9 UNITS Diagnostic Test (Pha) 1 strip ACHS 09/09/24 07:00 09/26/24 11:50 1 STRIP Aspirin 81 mg DAILY PO 09/12/24 10:00 09/26/24 10:28 81 MG Clopidogrel Bisulfate 75 mg DAILY PO 09/12/24 10:00 09/26/24 10:28 75 MG Atorvastatin Calcium 80 mg HS PO 09/12/24 22:00 09/25/24 21:19 80 MG Vancomycin HCl 200 ml @ 200 mls/hr Q18H IV 09/16/24 22:00 09/26/24 15:42 200 MLS/HR Amlodipine Besylate 10 mg DAILY PO 09/18/24 10:00 09/26/24 10:28 10 MG Morphine Sulfate 2 mg Q4HPRN PRN IV 09/19/24 16:00 Labetalol HCl 10 mg Q6HPRN PRN IV 09/19/24 16:15 09/20/24 02:57 10 MG Enteral Nutritional Formula 240 ml TIDWM PO 09/23/24 08:00 09/26/24 12:41 240 ML Potassium Chloride 100 ml @ 50 mls/hr Q2H IV 09/23/24 08:00 09/23/24 11:59 UNV Pantoprazole Sodium 40 mg DAILY@0600 PO 09/24/24 06:00 09/26/24 05:21 40 MG Acetaminophen 650 mg Q6HP PRN PO 09/23/24 14:30 Insulin Glargine 15 units HS SC 09/24/24 22:00 09/25/24 21:46 15 UNITS Levofloxacin/ Dextrose 100 ml @ 100 mls/hr DAILY IV 09/25/24 10:00 09/26/24 10:27 100 MLS/HR laboratory and microbiology Laboratory Tests 09/26/24 05:32 Test 09/26/24 05:32 Range/Units Serum Glucose 178 H 74-106 mg/dL Assessment/Plan Impression: Acute hypoxic respiratory failure Gastrointestinal hemorrhage Aspiration pneumonia S/p tracheostomy MAGDALENA mucous plug Patient seen and examined Events: s/p tracheostomy Trache size [address] Labs and imaging reviewed ABG reviewed Management Supplemental oxygen Daily ABG and CXR Trach care per RT protocols HD per Nephrology Monitor renal function Monitor electrolytes. Supplement as necessary. Continue bronchodilators/Mucomyst Continue antibiotics. Continue antifungals Follow up cultures TPN for nutritional support Accu-Cheks, ISS Continue bronchodilators. Continue antibiotics. Monitor hemoglobin GI recs appreciated DVT prophylaxis Dietary Evaluation Review Recommendations by RD: Protein Supplementation, PPN/TPN Comments: Pt is at high risk of malnutrition due to prolonged vomiting leading to inadequate nutrient intake and hypermetabolic state secondary to acute inflammation. Recommendation: 1) Start PN/TPN per pharmacy 2) If GI is accessible, consider TF Pivot 1.5Cal @ 60ml/hr along with Pro-stat 1 pk TID. Start @ 10ml/hr, increase 10ml/hr Q4H until goal rate is reached. Advance TF rate slowly and gradually to prevent Refeeding syndrome. Water Flush 50ml Q4H if allowed. TF Provision --- TF at goal volume to provide 1440 ml total volume, 2160 kcal (+300 kcal via Pro-stat = 2460 kcal), 135 gm pro (+45 gm via ProStat = 180 gm), 1093 ml H20 (meets 100% est. kcal needs, 100% est. protein needs) 3) Monitor Potassium, Phosphate, Magnesium for Refeeding syndrome 4) Des 1 pk daily For DTI 5) Continue current plan of care Expected Outcomes/Goals: Blood glucose to improve Nutrient intake to meet at least 75% estimated needs FU 2-3 days Food and Nutrition Intake (Mod: <75% est energy req 7days Protein Calorie Malnutrition: Severe Plan discussed with: Other REJI GUIDRY MD September 26, 2024 17:51
[2024-09-27] VITALS (12 sets, daily range): BP systolic 101–140; BP diastolic 40–85; PULSE 98–112; RESP 17–20; TEMP 97.6–98.1; O2SAT 96–98
[2024-09-27 07:56] LABS: Basophils # (auto) 0.1 10 ^3/uL (0-0.2); Basophils % (auto) 0.8 % (0.0-2.0); Eosinophils # (auto) 0.9 10 ^3/uL (0-0.8); Eosinophils % (auto) 5.3 % (0.0-7.0); Hemoglobin 10.8 g/dL (13.5-17.5); Lymphocytes # (auto) 2.3 10 ^3/uL (0.4-5.4); Mean Corpuscular Hemoglobin 28.7 pg (28.0-32.0); Mean Corpuscular Hgb Conc. 33.7 g/dL (32.0-36.0); Mean Corpuscular Volume 85.2 fL (80.0-100.0); Monocytes # (auto) 1.5 10 ^3/uL (0-1.3); Monocytes % (auto) 8.8 % (0.0-12.0); Neutrophils # (auto) 11.8 10 ^3/uL (1.6-8.6); Neutrophils % (auto) 71.1 % (37.0-80.0); Platelet Count (auto) 322 10^3/uL (140-450); Red Blood Cells 3.76 10^6/uL (4.5-5.90); Red Cell Distribution Width 15.4 % (11.8-14.3); White Blood Cell 16.7 10^3/uL (4.4-10.8)
--- NOTE | 2024-09-27 10:04 | DVHPN2 ---
Progress Note - Dictate Date Seen: September 27, 2024 Has the PT tested + for MRSA If YES, has PT been informed?: No Medical Necessity Reason Pt with a Central, PICC or Fol: Yes The following are medically ne: Chavez Catheter Reason for chavez catheter: Strict I&O vital signs Vital Sign Date Time Temp Pulse Resp B/P (MAP) Pulse Ox O2 Delivery O2 Flow Rate FiO2 09/27/24 09:00 97.8 103 18 140/85 (103) 98 97.8 09/26/24 20:00 Trach Collar 6 30 30 Total Intake and Output 09/26/24 09/26/24 09/27/24 15:00 23:00 07:00 Intake Total 1320 ml 800 ml 1988 ml Output Total 1900 ml 2375 ml Balance 1320 ml -1100 ml -387 ml medications Current Medications Medications Dose Ordered Sig/Nikki Route Start Time Stop Time Status Last Admin Dose Admin Diagnostic Test (Pha) 1 strip ACHS 08/19/24 17:00 Cancel Norepinephrine Bitartrate 250 ml @ 3.75 mls/hr Q24H IV 08/19/24 17:15 Cancel Epoetin Aquilino-epbx 10,000 unit TUTHSA@2100 SC 08/26/24 21:00 09/24/24 21:01 10,000 UNIT Heparin Sodium (Porcine) 5,000 units Q12HR SC 08/31/24 22:00 09/26/24 22:29 5,000 UNITS Sodium Chloride 10 ml QSHIFT@10,22 IV 08/31/24 22:00 09/26/24 22:21 10 ML Artificial Tears 2 drop Q4HR PRN EACHEYE 09/02/24 10:45 09/14/24 21:59 2 DROP Dextrose 50 ml UD PRN IV 09/03/24 21:00 Insulin Human Regular AC SC 09/09/24 07:00 09/27/24 07:18 6 UNITS Diagnostic Test (Pha) 1 strip ACHS 09/09/24 07:00 09/27/24 07:20 1 STRIP Aspirin 81 mg DAILY PO 09/12/24 10:00 09/26/24 10:28 81 MG Clopidogrel Bisulfate 75 mg DAILY PO 09/12/24 10:00 09/26/24 10:28 75 MG Atorvastatin Calcium 80 mg HS PO 09/12/24 22:00 09/26/24 22:21 80 MG Vancomycin HCl 200 ml @ 200 mls/hr Q18H IV 09/16/24 22:00 09/26/24 15:42 200 MLS/HR Amlodipine Besylate 10 mg DAILY PO 09/18/24 10:00 09/26/24 10:28 10 MG Morphine Sulfate 2 mg Q4HPRN PRN IV 09/19/24 16:00 Labetalol HCl 10 mg Q6HPRN PRN IV 09/19/24 16:15 09/20/24 02:57 10 MG Enteral Nutritional Formula 240 ml TIDWM PO 09/23/24 08:00 09/26/24 18:03 240 ML Potassium Chloride 100 ml @ 50 mls/hr Q2H IV 09/23/24 08:00 09/23/24 11:59 UNV Pantoprazole Sodium 40 mg DAILY@0600 PO 09/24/24 06:00 09/27/24 07:03 40 MG Acetaminophen 650 mg Q6HP PRN PO 09/23/24 14:30 Insulin Glargine 15 units HS SC 09/24/24 22:00 09/26/24 22:39 15 UNITS Levofloxacin/ Dextrose 100 ml @ 100 mls/hr DAILY IV 09/25/24 10:00 09/26/24 10:27 100 MLS/HR laboratory and microbiology Laboratory Tests 09/27/24 07:01 09/26/24 05:32 Test 09/26/24 05:32 Range/Units Serum Glucose 178 H 74-106 mg/dL Assessment/Plan Impression: Acute hypoxic respiratory failure Gastrointestinal hemorrhage Aspiration pneumonia S/p tracheostomy MAGDALENA mucous plug Patient seen and examined Events: s/p tracheostomy Trache size [address] N new events Labs and imaging reviewed ABG reviewed Management Supplemental oxygen Daily ABG and CXR Trach care per RT protocols HD per Nephrology Monitor renal function Monitor electrolytes. Supplement as necessary. Continue bronchodilators/Mucomyst Continue antibiotics. Continue antifungals Follow up cultures TPN for nutritional support Accu-Cheks, ISS Continue bronchodilators. Continue antibiotics. Monitor hemoglobin GI recs appreciated DVT prophylaxis Dietary Evaluation Review Recommendations by RD: Protein Supplementation, PPN/TPN Comments: Pt is at high risk of malnutrition due to prolonged vomiting leading to inadequate nutrient intake and hypermetabolic state secondary to acute inflammation. Recommendation: 1) Start PN/TPN per pharmacy 2) If GI is accessible, consider TF Pivot 1.5Cal @ 60ml/hr along with Pro-stat 1 pk TID. Start @ 10ml/hr, increase 10ml/hr Q4H until goal rate is reached. Advance TF rate slowly and gradually to prevent Refeeding syndrome. Water Flush 50ml Q4H if allowed. TF Provision --- TF at goal volume to provide 1440 ml total volume, 2160 kcal (+300 kcal via Pro-stat = 2460 kcal), 135 gm pro (+45 gm via ProStat = 180 gm), 1093 ml H20 (meets 100% est. kcal needs, 100% est. protein needs) 3) Monitor Potassium, Phosphate, Magnesium for Refeeding syndrome 4) Des 1 pk daily For DTI 5) Continue current plan of care Expected Outcomes/Goals: Blood glucose to improve Nutrient intake to meet at least 75% estimated needs FU 2-3 days Food and Nutrition Intake (Mod: <75% est energy req 7days Protein Calorie Malnutrition: Severe Plan discussed with: Other (Rn) REJI GUIDRY MD September 27, 2024 10:04
--- NOTE | 2024-09-27 17:43 | DVHPN2 ---
Subjective in bed resting Reviewed: Care Plan, H&P, Labs, Medications, Previous Orders, Radiology, Other (Consultations) Changes from previous H/P or p: No Changes General: Per HPI Objective Vitals Vital Signs Date Time Temp Pulse Resp B/P (MAP) Pulse Ox O2 Delivery O2 Flow Rate FiO2 09/27/24 16:37 97.6 110 17 102/64 (77) 96 97.6 09/27/24 10:30 6.0 28 09/27/24 08:00 Trach Collar Intake/Output Intake and Output 09/27/24 07:00 Intake Total 4108 ml Output Total 4275 ml Balance -167 ml Intake Oral 4108 ml Output Urine Total 4275 ml General Appearance: Other (Intubated and sedated) HEENT: Atraumatic Lungs: Other (Mechanical ventilation sounds) Cardiovascular: Normal S1, Normal S2, Other (Tachycardia) Abdomen: Normal bowel sounds, Soft Genitourinary: Other (Friedman's) Neuro: Other (Intubated and sedated) Psych/Mental Status: Other (Intubated and sedated) Medications Current Medications Medications Dose Ordered Sig/Nikki Route Start Time Stop Time Status Last Admin Dose Admin Diagnostic Test (Pha) 1 strip ACHS 08/19/24 17:00 Cancel Norepinephrine Bitartrate 250 ml @ 3.75 mls/hr Q24H IV 08/19/24 17:15 Cancel Epoetin Aquilino-epbx 10,000 unit TUTHSA@2100 VA 08/26/24 21:00 09/24/24 21:01 10,000 UNIT Heparin Sodium (Porcine) 5,000 units Q12HR SC 08/31/24 22:00 09/27/24 11:24 5,000 UNITS Sodium Chloride 10 ml QSHIFT@10,22 IV 08/31/24 22:00 09/27/24 10:28 10 ML Artificial Tears 2 drop Q4HR PRN EACHEYE 09/02/24 10:45 09/14/24 21:59 2 DROP Dextrose 50 ml UD PRN IV 09/03/24 21:00 Insulin Human Regular AC SC 09/09/24 07:00 09/27/24 11:30 6 UNITS Diagnostic Test (Pha) 1 strip ACHS 09/09/24 07:00 09/27/24 17:00 1 STRIP Aspirin 81 mg DAILY PO 09/12/24 10:00 09/27/24 11:13 81 MG Clopidogrel Bisulfate 75 mg DAILY PO 09/12/24 10:00 09/27/24 11:13 75 MG Atorvastatin Calcium 80 mg HS PO 09/12/24 22:00 09/26/24 22:21 80 MG Vancomycin HCl 200 ml @ 200 mls/hr Q18H IV 09/16/24 22:00 09/27/24 10:00 200 MLS/HR Amlodipine Besylate 10 mg DAILY PO 09/18/24 10:00 09/27/24 11:13 10 MG Morphine Sulfate 2 mg Q4HPRN PRN IV 09/19/24 16:00 Labetalol HCl 10 mg Q6HPRN PRN IV 09/19/24 16:15 09/20/24 02:57 10 MG Enteral Nutritional Formula 240 ml TIDWM PO 09/23/24 08:00 09/27/24 12:26 240 ML Potassium Chloride 100 ml @ 50 mls/hr Q2H IV 09/23/24 08:00 09/23/24 11:59 UNV Pantoprazole Sodium 40 mg DAILY@0600 PO 09/24/24 06:00 09/27/24 07:03 40 MG Acetaminophen 650 mg Q6HP PRN PO 09/23/24 14:30 Insulin Glargine 15 units HS SC 09/24/24 22:00 09/26/24 22:39 15 UNITS Levofloxacin/ Dextrose 100 ml @ 100 mls/hr DAILY IV 09/25/24 10:00 09/27/24 11:14 100 MLS/HR Laboratory Results Laboratory Tests 09/26/24 05:32 09/27/24 07:01 Urinalysis Test 08/19/24 11:25 09/21/24 14:40 Urine Renal Epithelial Cells Few /hpf (None Seen) Urine Amorphous Crystals Few /hpf (None Seen) Urine Creatinine 77.13 mg/dL (30.0-125.0) Urine Sodium 15 mmol/L (40-220) L Urine Color Light-yellow (Yellow) Urine Clarity Turbid (Clear) H Urine pH 5.5 (5.0-9.0) Urine Specific [place] 1.020 (1.001-1.035) Urine Protein 1+ (Negative) H Urine Ketones Negative (Negative) Urine Blood 1+ /uL (Negative) H Urine Nitrite Negative (Negative) Urine Bilirubin Negative (Negative) Urine Urobilinogen Normal mg/dL (Negative) Urine Leukocyte Esterase 1+ /uL (Negative) Urine RBC 19 /hpf (0 - 3) Urine Microscopic WBC 14 /HPF (0-3) H Urine Squamous Epithelial Cells Few /hpf (<5) Urine Bacteria Few /hpf (None Seen) H Urine Hyaline Casts Few /lpf (0 - 2) Urine Mucus Few (None Seen) Urine Sperm Present /hpf (None Seen) Urine Glucose 1+ mg/dL (Normal) H Microbiology Microbiology Date/Time Source Procedure Growth Status 09/16/24 16:00 Sputum Gram Stain - Final Complete 09/16/24 16:00 Sputum Respiratory Culture - Final Complete 09/10/24 10:47 Catheter Tip Other Aerobic Culture - Final Complete 09/04/24 10:19 Blood Blood Culture - Final NO GROWTH AFTER 5 DAYS OF INCUBATION. Complete 08/31/24 14:00 Urine - [place] Urine Culture - Final Complete Assessment/Plan Assessment/Plan Assessment and plan: Neurology Acute ischemic stroke in the rt cerebellar hemisphere and Left frontoparietal Acute metabolic encephalopathy likely due to sepsis/HHS - MRI demonstrated Acute infarction within the right cerebellar hemisphere measuring 3.2 x 0.7 cm. Left frontoparietal increased T2 signal with mild diffusion restriction signal. This could represent subacute infarct or underlying mass/lesion. - on mechanical ventilation - S/P tracheostomy - Patient passed the window period of tPA therapy for ischemic stroke and also he has a recent history of GI bleeding in 1 week. - Continue aspirin 81 mg daily, clopidogrel 75 mg daily and atorvastatin 80 mg at HS - Neurology evaluated the patient and recommended ESTHER for possible identification of the source of the emboli for ischemic stroke. EEG demonstrated borderline normal EEG and no focal lateralized or epileptiform features noted. - Patient underwent ESTHER today and revealed there are no significant Doppler anomalies. No significant tricuspid mitral or aortic insufficiency. Pulmonic insufficiency was not visualized. No pericardial effusion masses or vegetations discernible. No intracardiac masses. No intra-atrial shunt. No VSD or ASD noted. Bubble studies did not reveal intra-atrial shunting or crossover Respiratory Acute hypoxic respiratory failure Probable aspiration pneumonia ARDS - S/P tracheostomy and on trach collar with 6L O2 - chest x-ray shows bilateral patchy opacities - ABG compensated - duonebs q6hr - IV antibiotics Vancomycin and cefepime - sputum culture showed growth of yeast Cardiovascular Shock due to sepsis possibly from aspiration Acute on chronic heart failure with reduced ejection fraction Hypertensive heart disease - echo showed LVEF60% on 09/16 - Amlodipine 10 mg po daily. Infectious disease Septic shock likely due to aspiration pneumonia Infected Sacral ulcer, unstageable pressure ulcer - on IV antibiotics - culture from sacral ulcer growing enterococcus - blood culture showed no growth - on Vancomycin and levofloxacin Nephrology Metabolic alkalosis likely from intractable vomiting, resolved KATE on CKD likely due to be VMN from dehydration - Last dialysis on 09/07/24 and hold off dialysis per nephrology. - urine output improved - Epotein alpha-epbx per protocol GI ?Gastroparesis ?Upper GI bleed - KUB shows nonobstructive bowel gas pattern - IV Protonix daily - 4 units of PRBC given, H&H stable - GI on board - CT with PO contrast showed no obstruction. - FOBT positive - On pureed diet Endocrinology Uncontrolled diabetes mellitus with a hyperglycemia Morbid obesity - on insulin sliding scale - lantus 20 unit HS Skin - Unstageble ulcer in the sacral area covered with eschar - Surgery mentioned patient does not need debridement now because no fluctuation or discharge. Diet: Pureed diet DVT prophylaxis: heparin Left upper arm midline placed on 09/18/24 Friedman's catheter placed on 09/09/24 Plan discussed with: Patient Date of Service: September 27, 2024 Billing Provider: GHISLAINE KATHLEEN MD Common Visit Codes: [id number] INP/OBS CARE(HIGH) GHISLAINE KATHLEEN MD September 27, 2024 17:43
--- NOTE | 2024-09-27 21:57 | DVHPN2 ---
Progress Note - Dictate Date Seen: September 27, 2024 Has the PT tested + for MRSA If YES, has PT been informed?: No Medical Necessity Reason Pt with a Central, PICC or Fol: Yes The following are medically ne: Chavez Catheter Reason for chavez catheter: Strict I&O Subjective Patient seen and examined on the bedside He is alert, and orientedX3 He is on trach collar 6 with 6L O2 . Downgraded to telemetry Patient is on pureed diet. One bowel movement recorded today Supplementation with Glucerna one can p.o. three times a day has been ordered Protonix change to 40 mg p.o. daily vital signs Vital Sign Date Time Temp Pulse Resp B/P (MAP) Pulse Ox O2 Delivery O2 Flow Rate FiO2 09/27/24 21:00 97.9 106 19 101/40 (60) 98 97.9 09/27/24 19:56 Trach Collar 5 N/A Total Intake and Output 09/26/24 09/26/24 09/27/24 15:00 23:00 07:00 Intake Total 1320 ml 800 ml 1988 ml Output Total 1900 ml 2375 ml Balance 1320 ml -1100 ml -387 ml medications Current Medications Medications Dose Ordered Sig/Nikki Route Start Time Stop Time Status Last Admin Dose Admin Diagnostic Test (Pha) 1 strip ACHS 08/19/24 17:00 Cancel Norepinephrine Bitartrate 250 ml @ 3.75 mls/hr Q24H IV 08/19/24 17:15 Cancel Epoetin Aquilino-epbx 10,000 unit TUTHSA@2100 [place] 08/26/24 21:00 09/24/24 21:01 10,000 UNIT Heparin Sodium (Porcine) 5,000 units Q12HR SC 08/31/24 22:00 09/27/24 11:24 5,000 UNITS Sodium Chloride 10 ml QSHIFT@10,22 IV 08/31/24 22:00 09/27/24 10:28 10 ML Artificial Tears 2 drop Q4HR PRN EACHEYE 09/02/24 10:45 09/14/24 21:59 2 DROP Dextrose 50 ml UD PRN IV 09/03/24 21:00 Insulin Human Regular AC SC 09/09/24 07:00 09/27/24 17:00 2 UNITS Diagnostic Test (Pha) 1 strip ACHS 09/09/24 07:00 09/27/24 17:00 1 STRIP Aspirin 81 mg DAILY PO 09/12/24 10:00 09/27/24 11:13 81 MG Clopidogrel Bisulfate 75 mg DAILY PO 09/12/24 10:00 09/27/24 11:13 75 MG Atorvastatin Calcium 80 mg HS PO 09/12/24 22:00 09/26/24 22:21 80 MG Vancomycin HCl 200 ml @ 200 mls/hr Q18H IV 09/16/24 22:00 09/27/24 10:00 200 MLS/HR Amlodipine Besylate 10 mg DAILY PO 09/18/24 10:00 09/27/24 11:13 10 MG Morphine Sulfate 2 mg Q4HPRN PRN IV 09/19/24 16:00 Labetalol HCl 10 mg Q6HPRN PRN IV 09/19/24 16:15 09/20/24 02:57 10 MG Enteral Nutritional Formula 240 ml TIDWM PO 09/23/24 08:00 09/27/24 18:15 240 ML Potassium Chloride 100 ml @ 50 mls/hr Q2H IV 09/23/24 08:00 09/23/24 11:59 UNV Pantoprazole Sodium 40 mg DAILY@0600 PO 09/24/24 06:00 09/27/24 07:03 40 MG Acetaminophen 650 mg Q6HP PRN PO 09/23/24 14:30 Insulin Glargine 15 units HS SC 09/24/24 22:00 09/26/24 22:39 15 UNITS Levofloxacin/ Dextrose 100 ml @ 100 mls/hr DAILY IV 09/25/24 10:00 09/27/24 11:14 100 MLS/HR objective General: Awake alert responsive, S/P tracheostomy change HEENT: Head is normocephalic and atraumatic. Pupils are equal, round, and reactive to light Neck: Supple with no cervical lymphadenopathy. Heart: Regular rate without murmur, rub, or gallop. Lungs: Bilateral crackles, most prominent on bases Abdomen: No external sign of injury. Bowel sounds present Abdomen is soft, nontender. Extremities: faint peripheral pulses. There is no clubbing, no cyanosis, and no edema. laboratory and microbiology Laboratory Tests 09/27/24 07:01 09/26/24 05:32 Test 09/26/24 05:32 Range/Units Serum Glucose 178 H 74-106 mg/dL Problems(with codes): (1) CVA (cerebral vascular accident) (2) Gastroparesis (3) Leukocytosis (4) Anemia (5) Metabolic alkalosis (6) Diabetes type 2, uncontrolled (7) Hyponatremia Prognosis Plan Advance diet as tolerated Discharge planning as per hospitalist Monitor labs On Plavix aspirin and heparin On Protonix 40 mg p.o. daily Dietary Evaluation Review Recommendations by RD: Protein Supplementation, PPN/TPN Comments: Pt is at high risk of malnutrition due to prolonged vomiting leading to inadequate nutrient intake and hypermetabolic state secondary to acute inflammation. Recommendation: 1) Start PN/TPN per pharmacy 2) If GI is accessible, consider TF Pivot 1.5Cal @ 60ml/hr along with Pro-stat 1 pk TID. Start @ 10ml/hr, increase 10ml/hr Q4H until goal rate is reached. Advance TF rate slowly and gradually to prevent Refeeding syndrome. Water Flush 50ml Q4H if allowed. TF Provision --- TF at goal volume to provide 1440 ml total volume, 2160 kcal (+300 kcal via Pro-stat = 2460 kcal), 135 gm pro (+45 gm via ProStat = 180 gm), 1093 ml H20 (meets 100% est. kcal needs, 100% est. protein needs) 3) Monitor Potassium, Phosphate, Magnesium for Refeeding syndrome 4) Des 1 pk daily For DTI 5) Continue current plan of care Expected Outcomes/Goals: Blood glucose to improve Nutrient intake to meet at least 75% estimated needs FU 2-3 days Food and Nutrition Intake (Mod: <75% est energy req 7days Protein Calorie Malnutrition: Severe Plan discussed with: Patient ALDAIR YOUSSEF MD September 27, 2024 21:57
[2024-09-28] VITALS (9 sets, daily range): BP systolic 118–143; BP diastolic 70–87; PULSE 99–118; RESP 18–19; TEMP 97–98.2; O2SAT 98–99
[2024-09-28 07:28] LABS: Basophils # (auto) 0.1 10 ^3/uL (0-0.2); Basophils % (auto) 0.8 % (0.0-2.0); Eosinophils # (auto) 0.8 10 ^3/uL (0-0.8); Eosinophils % (auto) 4.2 % (0.0-7.0); Hematocrit 33.5 % (41.0-53.0); Hemoglobin 11.3 g/dL (13.5-17.5); Lymphocytes # (auto) 2.5 10 ^3/uL (0.4-5.4); Lymphocytes % (auto) 13.6 % (10.0-50.0); Mean Corpuscular Hemoglobin 29.3 pg (28.0-32.0); Mean Corpuscular Hgb Conc. 33.7 g/dL (32.0-36.0); Mean Corpuscular Volume 86.9 fL (80.0-100.0); Monocytes # (auto) 1.5 10 ^3/uL (0-1.3); Neutrophils # (auto) 13.4 10 ^3/uL (1.6-8.6); Neutrophils % (auto) 73.4 % (37.0-80.0); Platelet Count (auto) 333 10^3/uL (140-450); Red Blood Cells 3.86 10^6/uL (4.5-5.90); Red Cell Distribution Width 15.4 % (11.8-14.3); White Blood Cell 18.2 10^3/uL (4.4-10.8)
[2024-09-28 11:48] LABS: Chloride 103 mmol/L (98-107); Potassium 3.8 mmol/L (3.5-5.1)
[2024-09-28 11:49] LABS: Anion Gap 11 (5-15); Calcium 8.9 mg/dL (8.7-10.4)
[2024-09-28 11:52] LABS: Carbon Dioxide 20 mmol/L (20-31); Sodium 134 mmol/L (136-145)
[2024-09-28 11:54] LABS: BUN/Creatinine Ratio 9.9 (10.0-20.0); Blood Urea Nitrogen 11 mg/dL (9-23)
[2024-09-28 11:58] LABS: Glucose 287 mg/dL (74-106)
[2024-09-28 13:34] LABS: Basophils # (auto) 0.2 10 ^3/uL (0-0.2); Basophils % (auto) 0.8 % (0.0-2.0); Eosinophils % (auto) 4.3 % (0.0-7.0); Hematocrit 33.8 % (41.0-53.0); Hemoglobin 11.5 g/dL (13.5-17.5); Lymphocytes # (auto) 3.5 10 ^3/uL (0.4-5.4); Lymphocytes % (auto) 15.7 % (10.0-50.0); Mean Corpuscular Hemoglobin 29.3 pg (28.0-32.0); Mean Corpuscular Hgb Conc. 34.1 g/dL (32.0-36.0); Mean Corpuscular Volume 85.9 fL (80.0-100.0); Monocytes # (auto) 1.8 10 ^3/uL (0-1.3); Monocytes % (auto) 8.1 % (0.0-12.0); Neutrophils % (auto) 71.1 % (37.0-80.0); Platelet Count (auto) 343 10^3/uL (140-450); Red Blood Cells 3.94 10^6/uL (4.5-5.90); White Blood Cell 22.6 10^3/uL (4.4-10.8)
--- NOTE | 2024-09-28 18:31 | DVHPN2 ---
Progress Note - Dictate Date Seen: September 28, 2024 Has the PT tested + for MRSA If YES, has PT been informed?: No Medical Necessity Reason Pt with a Central, PICC or Fol: Yes The following are medically ne: Chavez Catheter Reason for chavez catheter: Strict I&O vital signs Vital Sign Date Time Temp Pulse Resp B/P (MAP) Pulse Ox O2 Delivery O2 Flow Rate FiO2 09/28/24 16:54 97.0 109 18 119/82 (94) 98 97.0 09/28/24 08:00 Trach Collar 5 N/A Total Intake and Output 09/27/24 09/27/24 09/28/24 15:00 23:00 07:00 Intake Total 300 ml 1630 ml 1400 ml Output Total 900 ml Balance 300 ml 1630 ml 500 ml medications Current Medications Medications Dose Ordered Sig/Nikki Route Start Time Stop Time Status Last Admin Dose Admin Diagnostic Test (Pha) 1 strip ACHS 08/19/24 17:00 Cancel Norepinephrine Bitartrate 250 ml @ 3.75 mls/hr Q24H IV 08/19/24 17:15 Cancel Epoetin Aquilino-epbx 10,000 unit TUTHSA@2100 [place] 08/26/24 21:00 09/24/24 21:01 10,000 UNIT Heparin Sodium (Porcine) 5,000 units Q12HR SC 08/31/24 22:00 09/28/24 10:25 5,000 UNITS Sodium Chloride 10 ml QSHIFT@10,22 IV 08/31/24 22:00 09/28/24 10:00 10 ML Artificial Tears 2 drop Q4HR PRN EACHEYE 09/02/24 10:45 09/14/24 21:59 2 DROP Dextrose 50 ml UD PRN IV 09/03/24 21:00 Insulin Human Regular AC SC 09/09/24 07:00 09/28/24 17:00 2 UNITS Diagnostic Test (Pha) 1 strip ACHS 09/09/24 07:00 09/28/24 17:00 1 STRIP Aspirin 81 mg DAILY PO 09/12/24 10:00 09/28/24 10:17 81 MG Clopidogrel Bisulfate 75 mg DAILY PO 09/12/24 10:00 09/28/24 10:17 75 MG Atorvastatin Calcium 80 mg HS PO 09/12/24 22:00 09/27/24 23:13 80 MG Amlodipine Besylate 10 mg DAILY PO 09/18/24 10:00 09/28/24 10:17 10 MG Morphine Sulfate 2 mg Q4HPRN PRN IV 09/19/24 16:00 Labetalol HCl 10 mg Q6HPRN PRN IV 09/19/24 16:15 09/20/24 02:57 10 MG Enteral Nutritional Formula 240 ml TIDWM PO 09/23/24 08:00 09/28/24 17:49 240 ML Potassium Chloride 100 ml @ 50 mls/hr Q2H IV 09/23/24 08:00 09/23/24 11:59 UNV Pantoprazole Sodium 40 mg DAILY@0600 PO 09/24/24 06:00 09/28/24 04:49 40 MG Acetaminophen 650 mg Q6HP PRN PO 09/23/24 14:30 Insulin Glargine 15 units HS SC 09/24/24 22:00 09/27/24 23:33 15 UNITS Levofloxacin/ Dextrose 100 ml @ 100 mls/hr DAILY IV 09/25/24 10:00 09/28/24 10:17 100 MLS/HR laboratory and microbiology Laboratory Tests 09/28/24 13:25 09/28/24 11:20 Test 09/28/24 11:20 Range/Units Serum Glucose 287 #H 74-106 mg/dL Assessment/Plan Impression: Acute hypoxic respiratory failure Gastrointestinal hemorrhage Aspiration pneumonia S/p tracheostomy MAGDALENA mucous plug Patient seen and examined Events: s/p tracheostomy Tracheostomy tube exchange was performed at the bedside Patient previously had cuffless shiley size 6 Tube was exchanged and cuffless shiley size [address] See separate note for procedure in detail, patient tolerated procedure well Labs and imaging reviewed ABG reviewed Management Supplemental oxygen Daily ABG and CXR Trach care per RT protocols HD per Nephrology Monitor renal function Monitor electrolytes. Supplement as necessary. Continue bronchodilators/Mucomyst Continue antibiotics. Continue antifungals Follow up cultures TPN for nutritional support Accu-Cheks, ISS Continue bronchodilators. Continue antibiotics. Monitor hemoglobin GI recs appreciated DVT prophylaxis Dietary Evaluation Review Recommendations by RD: Protein Supplementation, PPN/TPN Comments: Pt is at high risk of malnutrition due to prolonged vomiting leading to inadequate nutrient intake and hypermetabolic state secondary to acute inflammation. Recommendation: 1) Start PN/TPN per pharmacy 2) If GI is accessible, consider TF Pivot 1.5Cal @ 60ml/hr along with Pro-stat 1 pk TID. Start @ 10ml/hr, increase 10ml/hr Q4H until goal rate is reached. Advance TF rate slowly and gradually to prevent Refeeding syndrome. Water Flush 50ml Q4H if allowed. TF Provision --- TF at goal volume to provide 1440 ml total volume, 2160 kcal (+300 kcal via Pro-stat = 2460 kcal), 135 gm pro (+45 gm via ProStat = 180 gm), 1093 ml H20 (meets 100% est. kcal needs, 100% est. protein needs) 3) Monitor Potassium, Phosphate, Magnesium for Refeeding syndrome 4) Des 1 pk daily For DTI 5) Continue current plan of care Expected Outcomes/Goals: Blood glucose to improve Nutrient intake to meet at least 75% estimated needs FU 2-3 days Food and Nutrition Intake (Mod: <75% est energy req 7days Protein Calorie Malnutrition: Severe Plan discussed with: Patient REJI GUIDRY MD September 28, 2024 18:31
--- NOTE | 2024-09-28 18:34 | DVHNC2 ---
Procedure - Procedure- Tracheostomy tube exchange Procedure in detail Consent was obtained and timeout performed per protocol. Patient previously had cuffless trach size [address] Tracheostomy was downsized to cuffless shiley size 4. Patient tolerated the procedure well, no acute events. REJI GUIDRY MD September 28, 2024 18:33
--- NOTE | 2024-09-28 18:47 | DVHPNRES ---
Progress Note Date Seen: September 28, 2024 Resident Creating Document: ELIO SANTOS RESIDENT Has the PT tested + for MRSA If YES, has PT been informed?: No Medical Necessity Reason Pt with a Central, PICC or Fol: Yes The following are medically ne: Chavez Catheter Reason for chavez catheter: Strict I&O Subjective Review of Systems Patient seen and examined on the bedside He is alert, and orientedX3 Reduced the size of the trach He is on trach collar 4 with 6L O2 . Patient is on consistent carbohydrate diet Objective vital signs Vital Sign Date Time Temp Pulse Resp B/P (MAP) Pulse Ox O2 Delivery O2 Flow Rate FiO2 09/28/24 16:54 97.0 109 18 119/82 (94) 98 97.0 09/28/24 08:00 Trach Collar 5 N/A Total Intake and Output 09/27/24 09/27/24 09/28/24 15:00 23:00 07:00 Intake Total 300 ml 1630 ml 1400 ml Output Total 900 ml Balance 300 ml 1630 ml 500 ml medications Current Medications Medications Dose Ordered Sig/Nikki Route Start Time Stop Time Status Last Admin Dose Admin Diagnostic Test (Pha) 1 strip ACHS 08/19/24 17:00 Cancel Norepinephrine Bitartrate 250 ml @ 3.75 mls/hr Q24H IV 08/19/24 17:15 Cancel Epoetin Aquilino-epbx 10,000 unit TUTHSA@2100 [place] 08/26/24 21:00 09/24/24 21:01 10,000 UNIT Heparin Sodium (Porcine) 5,000 units Q12HR SC 08/31/24 22:00 09/28/24 10:25 5,000 UNITS Sodium Chloride 10 ml QSHIFT@10,22 IV 08/31/24 22:00 09/28/24 10:00 10 ML Artificial Tears 2 drop Q4HR PRN EACHEYE 09/02/24 10:45 09/14/24 21:59 2 DROP Dextrose 50 ml UD PRN IV 09/03/24 21:00 Insulin Human Regular AC SC 09/09/24 07:00 09/28/24 17:00 2 UNITS Diagnostic Test (Pha) 1 strip ACHS 09/09/24 07:00 09/28/24 17:00 1 STRIP Aspirin 81 mg DAILY PO 09/12/24 10:00 09/28/24 10:17 81 MG Clopidogrel Bisulfate 75 mg DAILY PO 09/12/24 10:00 09/28/24 10:17 75 MG Atorvastatin Calcium 80 mg HS PO 09/12/24 22:00 09/27/24 23:13 80 MG Amlodipine Besylate 10 mg DAILY PO 09/18/24 10:00 09/28/24 10:17 10 MG Morphine Sulfate 2 mg Q4HPRN PRN IV 09/19/24 16:00 Labetalol HCl 10 mg Q6HPRN PRN IV 09/19/24 16:15 09/20/24 02:57 10 MG Enteral Nutritional Formula 240 ml TIDWM PO 09/23/24 08:00 09/28/24 17:49 240 ML Potassium Chloride 100 ml @ 50 mls/hr Q2H IV 09/23/24 08:00 09/23/24 11:59 UNV Pantoprazole Sodium 40 mg DAILY@0600 PO 09/24/24 06:00 09/28/24 04:49 40 MG Acetaminophen 650 mg Q6HP PRN PO 09/23/24 14:30 Insulin Glargine 15 units HS SC 09/24/24 22:00 09/27/24 23:33 15 UNITS Levofloxacin/ Dextrose 100 ml @ 100 mls/hr DAILY IV 09/25/24 10:00 09/28/24 10:17 100 MLS/HR Examination Examination: Constitutional: Patient is alert and oriented X3 and trach collar Gen - mild conjuctival pallor, no icterus, no cyanosis, no clubbing, no LAD, 1+ edema in the feet . Skin - Patients skin is warm and dry. HEENT - normocephalic, atraumatic, moist mucous membranes. Neck - full ROM, no LAD, no jvd Pulmonary - B/L air entry present, diffuse rales, no wheezing, no stridor. cardiovascular - regular S1,S2 heard, no added sounds, no murmurs heard. GI - soft abdomen. no hepatospleenomegaly. bowel sounds hypoactive sacrum- ulcer seen , stage 3 ulcer with black eschar and surrounding pinkish granulation tissue. Neurological - Strength at 5/5 X3 ext, Normal tone, Sensation intact, grossly intact cranial nerves laboratory and microbiology Laboratory Tests 09/28/24 13:09/28/24 11:20 Test 09/28/24 11:20 Range/Units Serum Glucose 287 #H 74-106 mg/dL Microbiology Date/Time Source Procedure Growth Status 09/16/24 16:00 Sputum Gram Stain - Final Complete 09/16/24 16:00 Sputum Respiratory Culture - Final Complete 09/10/24 10:47 Catheter Tip Other Aerobic Culture - Final Complete 09/04/24 10:19 Blood Blood Culture - Final NO GROWTH AFTER 5 DAYS OF INCUBATION. Complete 08/31/24 14:00 Urine - Chavez [place] Urine Culture - Final Complete Labs and/or images reviewed: Labs reviewed by me, Image(s) reviewed by me Problem List/Assessment/Plan Problem List/Assessment/Plan Assessment and plan: Neurology Acute ischemic stroke in the rt cerebellar hemisphere and Left frontoparietal Acute metabolic encephalopathy likely due to sepsis/HHS - MRI demonstrated Acute infarction within the right cerebellar hemisphere measuring 3.2 x 0.7 cm. Left frontoparietal increased T2 signal with mild diffusion restriction signal. This could represent subacute infarct or underlying mass/lesion. - on mechanical ventilation - S/P tracheostomy - Patient passed the window period of tPA therapy for ischemic stroke and also he has a recent history of GI bleeding in 1 week. - Continue aspirin 81 mg daily, clopidogrel 75 mg daily and atorvastatin 80 mg at HS - Neurology evaluated the patient and recommended ESTHER for possible identification of the source of the emboli for ischemic stroke. EEG demonstrated borderline normal EEG and no focal lateralized or epileptiform features noted. - Patient underwent ESTHER today and revealed there are no significant Doppler anomalies. No significant tricuspid mitral or aortic insufficiency. Pulmonic insufficiency was not visualized. No pericardial effusion masses or vegetations discernible. No intracardiac masses. No intra-atrial shunt. No VSD or ASD noted. Bubble studies did not reveal intra-atrial shunting or crossover Respiratory Acute hypoxic respiratory failure Probable aspiration pneumonia ARDS - S/P tracheostomy and on trach collar with 6L O2 - chest x-ray shows bilateral patchy opacities - ABG compensated - duonebs q6hr - IV antibiotics Vancomycin and cefepime - sputum culture showed growth of yeast Cardiovascular Shock due to sepsis possibly from aspiration Acute on chronic heart failure with reduced ejection fraction Hypertensive heart disease - echo showed LVEF60% on 09/16 - Amlodipine 10 mg po daily. Infectious disease Septic shock likely due to aspiration pneumonia Infected Sacral ulcer, unstageable pressure ulcer - on IV antibiotics - culture from sacral ulcer growing enterococcus - blood culture showed no growth - on Vancomycin and levofloxacin Nephrology Metabolic alkalosis likely from intractable vomiting, resolved KATE on CKD likely due to be VMN from dehydration - Last dialysis on 09/07/24 and hold off dialysis per nephrology. - urine output improved - Epotein alpha-epbx per protocol GI ?Gastroparesis ?Upper GI bleed - KUB shows nonobstructive bowel gas pattern - IV Protonix daily - 4 units of PRBC given, H&H stable - GI on board - CT with PO contrast showed no obstruction. - FOBT positive - On pureed diet Endocrinology Uncontrolled diabetes mellitus with a hyperglycemia Morbid obesity - on insulin sliding scale - lantus 20 unit HS Skin - Unstageble ulcer in the sacral area covered with eschar - Surgery mentioned patient does not need debridement now because no fluctuation or discharge. Diet: Consistent Carbohydrate diet. DVT prophylaxis: heparin Left upper arm midline placed on 09/18/24 Chavez's catheter placed on 09/09/24 Goals of care discussed with the patient's sister Sheree for over 27 mins. Full code Critical care time spent 41 minutes Plan discussed with Dr. Ochoa Plan discussed with: Other (Sister, RN) Dietary Evaluation Review Recommendations by RD: Protein Supplementation, PPN/TPN Comments: Pt is at high risk of malnutrition due to prolonged vomiting leading to inadequate nutrient intake and hypermetabolic state secondary to acute inflammation. Recommendation: 1) Start PN/TPN per pharmacy 2) If GI is accessible, consider TF Pivot 1.5Cal @ 60ml/hr along with Pro-stat 1 pk TID. Start @ 10ml/hr, increase 10ml/hr Q4H until goal rate is reached. Advance TF rate slowly and gradually to prevent Refeeding syndrome. Water Flush 50ml Q4H if allowed. TF Provision --- TF at goal volume to provide 1440 ml total volume, 2160 kcal (+300 kcal via Pro-stat = 2460 kcal), 135 gm pro (+45 gm via ProStat = 180 gm), 1093 ml H20 (meets 100% est. kcal needs, 100% est. protein needs) 3) Monitor Potassium, Phosphate, Magnesium for Refeeding syndrome 4) Des 1 pk daily For DTI 5) Continue current plan of care Expected Outcomes/Goals: Blood glucose to improve Nutrient intake to meet at least 75% estimated needs FU 2-3 days Food and Nutrition Intake (Mod: <75% est energy req 7days Protein Calorie Malnutrition: Severe ELIO SANTOS RESIDENT September 28, 2024 18:46
--- NOTE | 2024-09-28 20:30 | DVHPN2 ---
Progress Note - Dictate Date Seen: September 28, 2024 Has the PT tested + for MRSA If YES, has PT been informed?: No Medical Necessity Reason Pt with a Central, PICC or Fol: Yes The following are medically ne: Chavez Catheter Reason for chavez catheter: Strict I&O Subjective Patient's tracheostomy was dislodged He had a size four tracheostomy placed and on 6 L oxygen Patient would like to get his tracheostomy capped closed Patient is on pureed diet. One bowel movement recorded today Supplementation with Glucerna one can p.o. three times a day has been ordered Protonix change to 40 mg p.o. daily vital signs Vital Sign Date Time Temp Pulse Resp B/P (MAP) Pulse Ox O2 Delivery O2 Flow Rate FiO2 09/28/24 20:08 98 Trach Collar 6 28 Cool Aerosol 28 09/28/24 16:54 97.0 109 18 119/82 (94) 97.0 Total Intake and Output 09/27/24 09/27/24 09/28/24 15:00 23:00 07:00 Intake Total 300 ml 1630 ml 1400 ml Output Total 900 ml Balance 300 ml 1630 ml 500 ml medications Current Medications Medications Dose Ordered Sig/Nikki Route Start Time Stop Time Status Last Admin Dose Admin Diagnostic Test (Pha) 1 strip ACHS 08/19/24 17:00 Cancel Norepinephrine Bitartrate 250 ml @ 3.75 mls/hr Q24H IV 08/19/24 17:15 Cancel Epoetin Aquilino-epbx 10,000 unit TUTHSA@2100 [place] 08/26/24 21:00 09/24/24 21:01 10,000 UNIT Heparin Sodium (Porcine) 5,000 units Q12HR SC 08/31/24 22:00 09/28/24 10:25 5,000 UNITS Sodium Chloride 10 ml QSHIFT@10,22 IV 08/31/24 22:00 09/28/24 10:00 10 ML Artificial Tears 2 drop Q4HR PRN EACHEYE 09/02/24 10:45 09/14/24 21:59 2 DROP Dextrose 50 ml UD PRN IV 09/03/24 21:00 Insulin Human Regular AC SC 09/09/24 07:00 09/28/24 17:00 2 UNITS Diagnostic Test (Pha) 1 strip ACHS 09/09/24 07:00 09/28/24 17:00 1 STRIP Aspirin 81 mg DAILY PO 09/12/24 10:00 09/28/24 10:17 81 MG Clopidogrel Bisulfate 75 mg DAILY PO 09/12/24 10:00 09/28/24 10:17 75 MG Atorvastatin Calcium 80 mg HS PO 09/12/24 22:00 09/27/24 23:13 80 MG Amlodipine Besylate 10 mg DAILY PO 09/18/24 10:00 09/28/24 10:17 10 MG Labetalol HCl 10 mg Q6HPRN PRN IV 09/19/24 16:15 09/20/24 02:57 10 MG Enteral Nutritional Formula 240 ml TIDWM PO 09/23/24 08:00 09/28/24 17:49 240 ML Potassium Chloride 100 ml @ 50 mls/hr Q2H IV 09/23/24 08:00 09/23/24 11:59 UNV Pantoprazole Sodium 40 mg DAILY@0600 PO 09/24/24 06:00 09/28/24 04:49 40 MG Acetaminophen 650 mg Q6HP PRN PO 09/23/24 14:30 Insulin Glargine 15 units HS SC 09/24/24 22:00 09/27/24 23:33 15 UNITS Levofloxacin/ Dextrose 100 ml @ 100 mls/hr DAILY IV 09/25/24 10:00 09/28/24 10:17 100 MLS/HR objective General: Awake alert responsive, S/P tracheostomy change HEENT: Head is normocephalic and atraumatic. Pupils are equal, round, and reactive to light Neck: Supple with no cervical lymphadenopathy. Heart: Regular rate without murmur, rub, or gallop. Lungs: Bilateral crackles, most prominent on bases Abdomen: No external sign of injury. Bowel sounds present Abdomen is soft, nontender. Extremities: faint peripheral pulses. There is no clubbing, no cyanosis, and no edema. laboratory and microbiology Laboratory Tests 09/28/24 13:25 09/28/24 11:20 Test 09/28/24 11:20 Range/Units Serum Glucose 287 #H 74-106 mg/dL Problems(with codes): (1) CVA (cerebral vascular accident) (2) Gastroparesis (3) Leukocytosis (4) Anemia (5) Metabolic alkalosis (6) Diabetes type 2, uncontrolled Prognosis Plan Possible capping of the tracheostomy once decided by pulmonary consult Advance to soft mechanical diet when he is able to tolerate Discharge planning as per hospitalist team No further GI workup at this time Patient can follow up in my office as an outpatient in 6-8 weeks to discuss elective GI workup Dietary Evaluation Review Recommendations by RD: Protein Supplementation, PPN/TPN Comments: Pt is at high risk of malnutrition due to prolonged vomiting leading to inadequate nutrient intake and hypermetabolic state secondary to acute inflammation. Recommendation: 1) Start PN/TPN per pharmacy 2) If GI is accessible, consider TF Pivot 1.5Cal @ 60ml/hr along with Pro-stat 1 pk TID. Start @ 10ml/hr, increase 10ml/hr Q4H until goal rate is reached. Advance TF rate slowly and gradually to prevent Refeeding syndrome. Water Flush 50ml Q4H if allowed. TF Provision --- TF at goal volume to provide 1440 ml total volume, 2160 kcal (+300 kcal via Pro-stat = 2460 kcal), 135 gm pro (+45 gm via ProStat = 180 gm), 1093 ml H20 (meets 100% est. kcal needs, 100% est. protein needs) 3) Monitor Potassium, Phosphate, Magnesium for Refeeding syndrome 4) Des 1 pk daily For DTI 5) Continue current plan of care Expected Outcomes/Goals: Blood glucose to improve Nutrient intake to meet at least 75% estimated needs FU 2-3 days Food and Nutrition Intake (Mod: <75% est energy req 7days Protein Calorie Malnutrition: Severe Plan discussed with: Patient ALDAIR YOUSSEF MD September 28, 2024 20:30
[2024-09-29] VITALS (10 sets, daily range): BP systolic 118–129; BP diastolic 62–93; PULSE 98–111; RESP 14–20; TEMP 97.6–98.2; O2SAT 98–99
[2024-09-29 06:26] LABS: Anion Gap 13 (5-15); Carbon Dioxide 20 mmol/L (20-31); Chloride 104 mmol/L (98-107); Potassium 4.1 mmol/L (3.5-5.1); Sodium 137 mmol/L (136-145)
[2024-09-29 06:27] LABS: Calcium 9.3 mg/dL (8.7-10.4)
[2024-09-29 06:28] LABS: Basophils # (auto) 0.1 10 ^3/uL (0-0.2); Basophils % (auto) 0.8 % (0.0-2.0); Eosinophils % (auto) 5.5 % (0.0-7.0); Hemoglobin 11.5 g/dL (13.5-17.5); Lymphocytes # (auto) 2.9 10 ^3/uL (0.4-5.4); Lymphocytes % (auto) 15.3 % (10.0-50.0); Mean Corpuscular Hemoglobin 28.8 pg (28.0-32.0); Mean Corpuscular Hgb Conc. 32.9 g/dL (32.0-36.0); Mean Corpuscular Volume 87.4 fL (80.0-100.0); Monocytes # (auto) 1.6 10 ^3/uL (0-1.3); Monocytes % (auto) 8.3 % (0.0-12.0); Neutrophils # (auto) 13.1 10 ^3/uL (1.6-8.6); Neutrophils % (auto) 70.1 % (37.0-80.0); Nucleated Red Blood Cells % 0.1 %; Platelet Count (auto) 338 10^3/uL (140-450); Red Blood Cells 4.01 10^6/uL (4.5-5.90); Red Cell Distribution Width 15.5 % (11.8-14.3); White Blood Cell 18.6 10^3/uL (4.4-10.8)
[2024-09-29 06:32] LABS: BUN/Creatinine Ratio 9.2 (10.0-20.0); Blood Urea Nitrogen 10 mg/dL (9-23); Glucose 240 mg/dL (74-106)
--- NOTE | 2024-09-29 10:32 | DVH ---
EXAM: XY CHEST PORTABLE Indication: s/p tracheostomy Technique: Single frontal view of the chest was obtained Comparison: XY CHEST PORTABLE on DOS: 09/23/24, XY CHEST PORTABLE on DOS: 09/21/24, XY CHEST PORTABLE o n DOS: 09/19/24, XY CHEST PORTABLE on DOS: 09/18/24, XY CHEST PORTABLE on DOS: 09/17/24 FINDINGS: Lines and Tubes: Tracheostomy tube is visualized Lungs: No focal consolidation. Pleura: No effusion. No pneumothorax. Cardiomediastinal contours: Unremarkable Bones: No acute osseous abnormality. IMPRESSION: No acute cardiopulmonary disease.
[2024-09-29] MEDS: INSULIN LANTUS (GLARGINE) 1 /0.01ml (100units/ml) SC SCH (12:09)
[2024-09-29] MEDS ORDERED: CEFEPIME 1GM/ 50ML 50 ML IV ONE (16:30)
[2024-09-29] MEDS ORDERED: VANCOMYCIN PER PHARMACY 0 MG IV SCH (16:30)
[2024-09-29 17:50] LABS: INR 1.12 (0.9-1.15); Partial Thromboplastin Time 28.3 SEC (24.5-34.5); Prothrombin Time 11.7 sec (9.3-11.8)
[2024-09-29] MEDS ORDERED: CEFEPIME 2GM/50ML NS 50 ML IV ONE (18:15)
--- NOTE | 2024-09-29 18:38 | DVHPN2 ---
Progress Note Date Seen: September 29, 2024 Has the PT tested + for MRSA If YES, has PT been informed?: No Medical Necessity Reason Pt with a Central, PICC or Fol: No The following are medically ne: Chavez Catheter Reason for chavez catheter: Strict I&O Subjective Review of Systems Sacral wound Patient reports: Feels better Objective vital signs Vital Sign Date Time Temp Pulse Resp B/P (MAP) Pulse Ox O2 Delivery O2 Flow Rate FiO2 09/29/24 17:00 98.1 107 16 120/70 (87) 98 98.1 09/29/24 08:00 Trach Collar 5 N/A Total Intake and Output 09/28/24 09/28/24 09/29/24 15:00 23:00 07:00 Intake Total 100 ml 714 ml 2400 ml Output Total 2603 ml 2500 ml Balance 100 ml -1889 ml -100 ml medications Current Medications Medications Dose Ordered Sig/Nikki Route Start Time Stop Time Status Last Admin Dose Admin Diagnostic Test (Pha) 1 strip ACHS 08/19/24 17:00 Cancel Norepinephrine Bitartrate 250 ml @ 3.75 mls/hr Q24H IV 08/19/24 17:15 Cancel Epoetin Aquilino-epbx 10,000 unit TUTHSA@2100 IA 08/26/24 21:00 09/24/24 21:01 10,000 UNIT Sodium Chloride 10 ml QSHIFT@10,22 IV 08/31/24 22:00 09/29/24 09:52 10 ML Artificial Tears 2 drop Q4HR PRN EACHEYE 09/02/24 10:45 09/14/24 21:59 2 DROP Dextrose 50 ml UD PRN IV 09/03/24 21:00 Insulin Human Regular AC SC 09/09/24 07:00 09/29/24 17:43 3 UNITS Diagnostic Test (Pha) 1 strip ACHS 09/09/24 07:00 09/29/24 17:24 1 STRIP Aspirin 81 mg DAILY PO 09/12/24 10:00 09/29/24 09:52 81 MG Clopidogrel Bisulfate 75 mg DAILY PO 09/12/24 10:00 09/29/24 09:52 75 MG Atorvastatin Calcium 80 mg HS PO 09/12/24 22:00 09/28/24 22:46 80 MG Amlodipine Besylate 10 mg DAILY PO 09/18/24 10:00 09/29/24 09:53 10 MG Labetalol HCl 10 mg Q6HPRN PRN IV 09/19/24 16:15 09/20/24 02:57 10 MG Enteral Nutritional Formula 240 ml TIDWM PO 09/23/24 08:00 09/29/24 12:07 240 ML Potassium Chloride 100 ml @ 50 mls/hr Q2H IV 09/23/24 08:00 09/23/24 11:59 UNV Pantoprazole Sodium 40 mg DAILY@0600 PO 09/24/24 06:00 09/29/24 06:06 40 MG Acetaminophen 650 mg Q6HP PRN PO 09/23/24 14:30 Insulin Glargine 20 units HS SC 09/29/24 08:45 09/29/24 12:09 20 UNITS Cefepime HCl 50 ml @ 12.5 mls/hr Q8HR IV 09/29/24 22:00 UNV Vancomycin HCl 0 ml @ 0 mls/hr UD IV 09/29/24 16:30 Cefepime HCl 50 ml @ 12.5 mls/hr Q8HR IV 09/30/24 06:00 Vancomycin HCl 200 ml @ 200 mls/hr Q18H IV 09/29/24 19:00 UNV laboratory and microbiology Laboratory Tests 09/29/24 05:28 Test 09/29/24 05:28 Range/Units Serum Glucose 240 H 74-106 mg/dL Microbiology Date/Time Source Procedure Growth Status 09/16/24 16:00 Sputum Gram Stain - Final Complete 09/16/24 16:00 Sputum Respiratory Culture - Final Complete 09/10/24 10:47 Catheter Tip Other Aerobic Culture - Final Complete 09/04/24 10:19 Blood Blood Culture - Final NO GROWTH AFTER 5 DAYS OF INCUBATION. Complete 08/31/24 14:00 Urine - Chavez [place] Urine Culture - Final Complete Problem List/Assessment/Plan Problem List/Assessment/Plan Patient with a worsening discomfort over his sacrum with a known sacral wound w hich has become boggy. The patient does have a white count. We will plan on performing a surgical debridement tomorrow. Discussed the procedure with the patient he is willing to proceed as soon as possible. Patient understands risks benefits of the procedure. Patient is looking forward to getting home once home ferrous set up for his wound. Plan discussed with: Patient Dietary Evaluation Review Recommendations by RD: Protein Supplementation, PPN/TPN Comments: Pt is at high risk of malnutrition due to prolonged vomiting leading to inadequate nutrient intake and hypermetabolic state secondary to acute inflammation. Recommendation: 1) Start PN/TPN per pharmacy 2) If GI is accessible, consider TF Pivot 1.5Cal @ 60ml/hr along with Pro-stat 1 pk TID. Start @ 10ml/hr, increase 10ml/hr Q4H until goal rate is reached. Advance TF rate slowly and gradually to prevent Refeeding syndrome. Water Flush 50ml Q4H if allowed. TF Provision --- TF at goal volume to provide 1440 ml total volume, 2160 kcal (+300 kcal via Pro-stat = 2460 kcal), 135 gm pro (+45 gm via ProStat = 180 gm), 1093 ml H20 (meets 100% est. kcal needs, 100% est. protein needs) 3) Monitor Potassium, Phosphate, Magnesium for Refeeding syndrome 4) Des 1 pk daily For DTI 5) Continue current plan of care Expected Outcomes/Goals: Blood glucose to improve Nutrient intake to meet at least 75% estimated needs FU 2-3 days Food and Nutrition Intake (Mod: <75% est energy req 7days Protein Calorie Malnutrition: Severe KAILASH GUTIERREZ Jr., MD September 29, 2024 18:38
[2024-09-29] MEDS: VANCOMYCIN 1GM/200ML PM 200 ML IV SCH (18:56)
--- NOTE | 2024-09-29 20:23 | DVHPNRES ---
Progress Note Date Seen: September 29, 2024 Resident Creating Document: ELIO SANTOS RESIDENT Has the PT tested + for MRSA If YES, has PT been informed?: No Medical Necessity Reason Pt with a Central, PICC or Fol: No The following are medically ne: Chavez Catheter Reason for chavez catheter: Strict I&O Subjective Review of Systems Patient seen and examined on the bedside He is alert, and orientedX3 Reduced the size of the trach He is on trach collar 4 with 5L O2 . Patient is scheduled for wound debridement of stage 3 sacral ulcer on the back tomorrow NPO after midnight. Objective vital signs Vital Sign Date Time Temp Pulse Resp B/P (MAP) Pulse Ox O2 Delivery O2 Flow Rate FiO2 09/29/24 17:00 98.1 107 16 120/70 (87) 98 98.1 09/29/24 08:00 Trach Collar 5 N/A Total Intake and Output 09/28/24 09/28/24 09/29/24 15:00 23:00 07:00 Intake Total 100 ml 714 ml 2400 ml Output Total 2603 ml 2500 ml Balance 100 ml -1889 ml -100 ml medications Current Medications Medications Dose Ordered Sig/Nikki Route Start Time Stop Time Status Last Admin Dose Admin Diagnostic Test (Pha) 1 strip ACHS 08/19/24 17:00 Cancel Norepinephrine Bitartrate 250 ml @ 3.75 mls/hr Q24H IV 08/19/24 17:15 Cancel Epoetin Aquilino-epbx 10,000 unit TUTHSA@2100 SC 08/26/24 21:00 09/24/24 21:01 10,000 UNIT Sodium Chloride 10 ml QSHIFT@10,22 IV 08/31/24 22:00 09/29/24 09:52 10 ML Artificial Tears 2 drop Q4HR PRN EACHEYE 09/02/24 10:45 09/14/24 21:59 2 DROP Dextrose 50 ml UD PRN IV 09/03/24 21:00 Insulin Human Regular AC SC 09/09/24 07:00 09/29/24 17:43 3 UNITS Diagnostic Test (Pha) 1 strip ACHS 09/09/24 07:00 09/29/24 17:24 1 STRIP Aspirin 81 mg DAILY PO 09/12/24 10:00 09/29/24 09:52 81 MG Clopidogrel Bisulfate 75 mg DAILY PO 09/12/24 10:00 09/29/24 09:52 75 MG Atorvastatin Calcium 80 mg HS PO 09/12/24 22:00 09/28/24 22:46 80 MG Amlodipine Besylate 10 mg DAILY PO 09/18/24 10:00 09/29/24 09:53 10 MG Labetalol HCl 10 mg Q6HPRN PRN IV 09/19/24 16:15 09/20/24 02:57 10 MG Enteral Nutritional Formula 240 ml TIDWM PO 09/23/24 08:00 09/29/24 18:50 240 ML Potassium Chloride 100 ml @ 50 mls/hr Q2H IV 09/23/24 08:00 09/23/24 11:59 UNV Pantoprazole Sodium 40 mg DAILY@0600 PO 09/24/24 06:00 09/29/24 06:06 40 MG Acetaminophen 650 mg Q6HP PRN PO 09/23/24 14:30 Insulin Glargine 20 units HS SC 09/29/24 08:45 09/29/24 12:09 20 UNITS Cefepime HCl 50 ml @ 12.5 mls/hr Q8HR IV 09/29/24 22:00 UNV Vancomycin HCl 0 ml @ 0 mls/hr UD IV 09/29/24 16:30 Cefepime HCl 50 ml @ 12.5 mls/hr Q8HR IV 09/30/24 06:00 Vancomycin HCl 200 ml @ 200 mls/hr Q18H IV 09/29/24 19:00 09/29/24 18:56 200 MLS/HR Examination Examination: Constitutional: Patient is alert and oriented X3 and trach collar Gen - mild conjuctival pallor, no icterus, no cyanosis, no clubbing, no LAD, 1+ edema in the feet . Skin - Patients skin is warm and dry. HEENT - normocephalic, atraumatic, moist mucous membranes. Neck - full ROM, no LAD, no jvd Pulmonary - B/L air entry present, diffuse rales, no wheezing, no stridor. cardiovascular - regular S1,S2 heard, no added sounds, no murmurs heard. GI - soft abdomen. no hepatospleenomegaly. bowel sounds hypoactive sacrum- ulcer seen , stage 3 ulcer with black eschar and surrounding pinkish granulation tissue. Neurological - Strength at 5/5 X3 ext, Normal tone, Sensation intact, grossly intact cranial nerves laboratory and microbiology Laboratory Tests 09/29/24 05:28 Test 09/29/24 05:28 Range/Units Serum Glucose 240 H 74-106 mg/dL Microbiology Date/Time Source Procedure Growth Status 09/16/24 16:00 Sputum Gram Stain - Final Complete 09/16/24 16:00 Sputum Respiratory Culture - Final Complete 09/10/24 10:47 Catheter Tip Other Aerobic Culture - Final Complete 09/04/24 10:19 Blood Blood Culture - Final NO GROWTH AFTER 5 DAYS OF INCUBATION. Complete 08/31/24 14:00 Urine - Chavez [place] Urine Culture - Final Complete Labs and/or images reviewed: Labs reviewed by me, Image(s) reviewed by me Problem List/Assessment/Plan Problem List/Assessment/Plan Assessment and plan: Neurology Acute ischemic stroke in the rt cerebellar hemisphere and Left frontoparietal Acute metabolic encephalopathy likely due to sepsis/HHS - MRI demonstrated Acute infarction within the right cerebellar hemisphere measuring 3.2 x 0.7 cm. Left frontoparietal increased T2 signal with mild diffusion restriction signal. This could represent subacute infarct or underlying mass/lesion. - on mechanical ventilation - S/P tracheostomy - Patient passed the window period of tPA therapy for ischemic stroke and also he has a recent history of GI bleeding in 1 week. - Continue aspirin 81 mg daily, clopidogrel 75 mg daily and atorvastatin 80 mg at HS - Neurology evaluated the patient and recommended ESTHER for possible identification of the source of the emboli for ischemic stroke. EEG demonstrated borderline normal EEG and no focal lateralized or epileptiform features noted. - Patient underwent SETHER today and revealed there are no significant Doppler anomalies. No significant tricuspid mitral or aortic insufficiency. Pulmonic insufficiency was not visualized. No pericardial effusion masses or vegetations discernible. No intracardiac masses. No intra-atrial shunt. No VSD or ASD noted. Bubble studies did not reveal intra-atrial shunting or crossover Respiratory Acute hypoxic respiratory failure Probable aspiration pneumonia ARDS - S/P tracheostomy and on trach collar with 6L O2 - chest x-ray shows bilateral patchy opacities - ABG compensated - duonebs q6hr - IV antibiotics Vancomycin and cefepime - sputum culture showed growth of yeast Cardiovascular Shock due to sepsis possibly from aspiration Acute on chronic heart failure with reduced ejection fraction Hypertensive heart disease - echo showed LVEF60% on 09/16 - Amlodipine 10 mg po daily. Infectious disease Septic shock likely due to aspiration pneumonia Infected Sacral ulcer, unstageable pressure ulcer - on IV antibiotics - culture from sacral ulcer growing enterococcus - blood culture showed no growth - on Vancomycin and levofloxacin Nephrology Metabolic alkalosis likely from intractable vomiting, resolved KATE on CKD likely due to be VMN from dehydration - Last dialysis on 09/07/24 and hold off dialysis per nephrology. - urine output improved - Epotein alpha-epbx per protocol GI ?Gastroparesis ?Upper GI bleed - KUB shows nonobstructive bowel gas pattern - IV Protonix daily - 4 units of PRBC given, H&H stable - GI on board - CT with PO contrast showed no obstruction. - FOBT positive - On pureed diet Endocrinology Uncontrolled diabetes mellitus with a hyperglycemia Morbid obesity - on insulin sliding scale - lantus 20 unit HS Skin - Unstageble ulcer in the sacral area covered with eschar - Patient is scheduled for wound debridement tomorrow. Diet: NPO after midnight DVT prophylaxis: hold heparin for the procedure Left upper arm midline placed on 09/18/24 Chavez's catheter placed on 09/09/24 Goals of care discussed with the patient's sister Sheree for over 27 mins. Full code Critical care time spent 41 minutes Plan discussed with Dr. Flowers Plan discussed with: Other (Sister, RN) My Orders My Orders Orders - ELIO SANTOS RESIDENT Procedure Category Date Status Time Urinalysis LAB 09/29/24 Logged 08:32 Urine Bacterial MIRLANDE 09/29/24 Logged Culture 08:33 Chest Portable XY 09/29/24 Resulted 08:34 Insulin Lantus PHA 09/29/24 In Process (Glargine) (Lantus) 08:45 * Surgical Consult CONS 09/29/24 Transmitted Communication Order ORDERS 09/29/24 Transmitted 16:21 Vancomycin Per PHA 09/29/24 In Process Pharmacy 16:30 Cefepime 2gm/50ml Ns PHA 09/30/24 In Process (Maxipime 2gm/50ml) 06:00 Cefepime 2gm/50ml Ns PHA 09/29/24 In Process (Maxipime 2gm/50ml) 22:00 Vancomycin 1gm/200ml PHA 09/29/24 In Process Pm 19:00 Vancomycin Per ROHINI 10/02/24 In Process Pharmacy Protoc 01:00 Creatinine LAB 09/30/24 Verified 04:00 Npo After Midnight ROHINI 09/29/24 Transmitted 20:22 Npo (Nothing By DIET 09/30/24 Transmitted Mouth) Diet Breakfast Dietary Evaluation Review Recommendations by RD: Protein Supplementation, PPN/TPN Comments: Pt is at high risk of malnutrition due to prolonged vomiting leading to inadequate nutrient intake and hypermetabolic state secondary to acute inflammation. Recommendation: 1) Start PN/TPN per pharmacy 2) If GI is accessible, consider TF Pivot 1.5Cal @ 60ml/hr along with Pro-stat 1 pk TID. Start @ 10ml/hr, increase 10ml/hr Q4H until goal rate is reached. Advance TF rate slowly and gradually to prevent Refeeding syndrome. Water Flush 50ml Q4H if allowed. TF Provision --- TF at goal volume to provide 1440 ml total volume, 2160 kcal (+300 kcal via Pro-stat = 2460 kcal), 135 gm pro (+45 gm via ProStat = 180 gm), 1093 ml H20 (meets 100% est. kcal needs, 100% est. protein needs) 3) Monitor Potassium, Phosphate, Magnesium for Refeeding syndrome 4) Des 1 pk daily For DTI 5) Continue current plan of care Expected Outcomes/Goals: Blood glucose to improve Nutrient intake to meet at least 75% estimated needs FU 2-3 days Food and Nutrition Intake (Mod: <75% est energy req 7days Protein Calorie Malnutrition: Severe Date of Service: September 29, 2024 Billing Provider: ARMANDO FLOWERS MD Common Visit Codes: [id number] CARE 30-74 MIN ELIO SANTOS RESIDENT September 29, 2024 20:23 ARMANDO FLOWERS MD September 30, 2024 16:34
[2024-09-29] MEDS: CEFEPIME 2GM/50ML NS 50 ML IV ONE (21:35)
--- NOTE | 2024-09-29 21:53 | DVHPN2 ---
Progress Note - Dictate Date Seen: September 29, 2024 Has the PT tested + for MRSA If YES, has PT been informed?: No Medical Necessity Reason Pt with a Central, PICC or Fol: No The following are medically ne: Chavez Catheter Reason for chavez catheter: Strict I&O Subjective He had a size four tracheostomy placed and on 6 L oxygen Patient would like to get his tracheostomy capped closed soon Patient is on pureed diet. One bowel movement recorded today Supplementation with Glucerna one can p.o. three times a day has been ordered Protonix change to 40 mg p.o. daily vital signs Vital Sign Date Time Temp Pulse Resp B/P (MAP) Pulse Ox O2 Delivery O2 Flow Rate FiO2 09/29/24 17:00 98.1 107 16 120/70 (87) 98 98.1 09/29/24 08:00 Trach Collar 5 N/A Total Intake and Output 09/28/24 09/28/24 09/29/24 15:00 23:00 07:00 Intake Total 100 ml 714 ml 2400 ml Output Total 2603 ml 2500 ml Balance 100 ml -1889 ml -100 ml medications Current Medications Medications Dose Ordered Sig/Nikki Route Start Time Stop Time Status Last Admin Dose Admin Diagnostic Test (Pha) 1 strip ACHS 08/19/24 17:00 Cancel Norepinephrine Bitartrate 250 ml @ 3.75 mls/hr Q24H IV 08/19/24 17:15 Cancel Epoetin Aquilino-epbx 10,000 unit TUTHSA@2100 SC 08/26/24 21:00 09/24/24 21:01 10,000 UNIT Sodium Chloride 10 ml QSHIFT@10,22 IV 08/31/24 22:00 09/29/24 21:36 10 ML Artificial Tears 2 drop Q4HR PRN EACHEYE 09/02/24 10:45 09/14/24 21:59 2 DROP Dextrose 50 ml UD PRN IV 09/03/24 21:00 Insulin Human Regular AC SC 09/09/24 07:00 09/29/24 17:43 3 UNITS Diagnostic Test (Pha) 1 strip ACHS 09/09/24 07:00 09/29/24 21:36 1 STRIP Aspirin 81 mg DAILY PO 09/12/24 10:00 09/29/24 09:52 81 MG Clopidogrel Bisulfate 75 mg DAILY PO 09/12/24 10:00 09/29/24 09:52 75 MG Atorvastatin Calcium 80 mg HS PO 09/12/24 22:00 09/29/24 21:35 80 MG Amlodipine Besylate 10 mg DAILY PO 09/18/24 10:00 09/29/24 09:53 10 MG Labetalol HCl 10 mg Q6HPRN PRN IV 09/19/24 16:15 09/20/24 02:57 10 MG Enteral Nutritional Formula 240 ml TIDWM PO 09/23/24 08:00 09/29/24 18:50 240 ML Potassium Chloride 100 ml @ 50 mls/hr Q2H IV 09/23/24 08:00 09/23/24 11:59 UNV Pantoprazole Sodium 40 mg DAILY@0600 PO 09/24/24 06:00 09/29/24 06:06 40 MG Acetaminophen 650 mg Q6HP PRN PO 09/23/24 14:30 Insulin Glargine 20 units HS SC 09/29/24 08:45 09/29/24 21:45 20 UNITS Cefepime HCl 50 ml @ 12.5 mls/hr Q8HR IV 09/29/24 22:00 UNV Vancomycin HCl 0 ml @ 0 mls/hr UD IV 09/29/24 16:30 Cefepime HCl 50 ml @ 12.5 mls/hr Q8HR IV 09/30/24 06:00 Vancomycin HCl 200 ml @ 200 mls/hr Q18H IV 09/29/24 19:00 09/29/24 18:56 200 MLS/HR objective General: Awake alert responsive, S/P tracheostomy change HEENT: Head is normocephalic and atraumatic. Pupils are equal, round, and reactive to light Neck: Supple with no cervical lymphadenopathy. Heart: Regular rate without murmur, rub, or gallop. Lungs: Bilateral crackles, most prominent on bases Abdomen: No external sign of injury. Bowel sounds present Abdomen is soft, nontender. Extremities: faint peripheral pulses. There is no clubbing, no cyanosis, and no edema. laboratory and microbiology Laboratory Tests 09/29/24 05:28 Test 09/29/24 05:28 Range/Units Serum Glucose 240 H 74-106 mg/dL Problems(with codes): (1) CVA (cerebral vascular accident) (2) Gastroparesis (3) Leukocytosis (4) Anemia (5) Metabolic alkalosis (6) Diabetes type 2, uncontrolled Prognosis Plan Patient with a worsening discomfort over his sacrum with a known sacral wound w hich has become boggy. The patient does have a white count. Pt will undergo surgical debridement tomorrow. Continue nutritional support and trach care Discharge planning with home health care once patient is medically stabilized Dietary Evaluation Review Recommendations by RD: Protein Supplementation, PPN/TPN Comments: Pt is at high risk of malnutrition due to prolonged vomiting leading to inadequate nutrient intake and hypermetabolic state secondary to acute inflammation. Recommendation: 1) Start PN/TPN per pharmacy 2) If GI is accessible, consider TF Pivot 1.5Cal @ 60ml/hr along with Pro-stat 1 pk TID. Start @ 10ml/hr, increase 10ml/hr Q4H until goal rate is reached. Advance TF rate slowly and gradually to prevent Refeeding syndrome. Water Flush 50ml Q4H if allowed. TF Provision --- TF at goal volume to provide 1440 ml total volume, 2160 kcal (+300 kcal via Pro-stat = 2460 kcal), 135 gm pro (+45 gm via ProStat = 180 gm), 1093 ml H20 (meets 100% est. kcal needs, 100% est. protein needs) 3) Monitor Potassium, Phosphate, Magnesium for Refeeding syndrome 4) Des 1 pk daily For DTI 5) Continue current plan of care Expected Outcomes/Goals: Blood glucose to improve Nutrient intake to meet at least 75% estimated needs FU 2-3 days Food and Nutrition Intake (Mod: <75% est energy req 7days Protein Calorie Malnutrition: Severe Plan discussed with: Patient ALDAIR YOUSSEF MD September 29, 2024 21:53
[2024-09-29] MEDS ORDERED: CEFEPIME 1GM/ 50ML 50 ML IV SCH (22:00)
[2024-09-30] VITALS (10 sets, daily range): BP systolic 94–119; BP diastolic 61–76; PULSE 93–115; RESP 16–20; TEMP 97.6–98.1; O2SAT 95–99
[2024-09-30] MEDS: CEFEPIME 2GM/50ML NS 50 ML IV SCH (06:03)
[2024-09-30 06:47] LABS: Basophils # (auto) 0.1 10 ^3/uL (0-0.2); Basophils % (auto) 0.7 % (0.0-2.0); Eosinophils # (auto) 0.8 10 ^3/uL (0-0.8); Eosinophils % (auto) 4.3 % (0.0-7.0); Hematocrit 34.7 % (41.0-53.0); Hemoglobin 11.6 g/dL (13.5-17.5); Lymphocytes % (auto) 15.8 % (10.0-50.0); Mean Corpuscular Hemoglobin 28.7 pg (28.0-32.0); Mean Corpuscular Hgb Conc. 33.3 g/dL (32.0-36.0); Mean Corpuscular Volume 86.1 fL (80.0-100.0); Monocytes # (auto) 1.4 10 ^3/uL (0-1.3); Monocytes % (auto) 7.4 % (0.0-12.0); Neutrophils # (auto) 13.6 10 ^3/uL (1.6-8.6); Neutrophils % (auto) 71.8 % (37.0-80.0); Platelet Count (auto) 360 10^3/uL (140-450); Red Blood Cells 4.03 10^6/uL (4.5-5.90); Red Cell Distribution Width 15.4 % (11.8-14.3)
[2024-09-30 06:48] LABS: Anion Gap 10 (5-15); Carbon Dioxide 22 mmol/L (20-31); Chloride 107 mmol/L (98-107); Sodium 139 mmol/L (136-145)
[2024-09-30 06:54] LABS: BUN/Creatinine Ratio 10.2 (10.0-20.0); Blood Urea Nitrogen 12 mg/dL (9-23)
[2024-09-30 07:05] LABS: Glucose 208 mg/dL (74-106)
[2024-09-30] MEDS: ceFAZolin 2 GM/D5W50ml 50 ML IV ONE (12:12)
[2024-09-30] MEDS ORDERED: DexAMETHasone SOD PHOS 10MG/1ML VIAL INJ ONE (12:14)
[2024-09-30] MEDS ORDERED: KETOROLAC TROMETH 30 MG/ML 1ML VIAL ONE (12:14)
[2024-09-30] MEDS ORDERED: fentaNYL CITRATE 100 MCG/2 ML VL ONE (12:14)
[2024-09-30] MEDS ORDERED: GLYCOPYRROLATE 0.2 MG/ML 1ML VIAL ONE (12:14)
[2024-09-30] MEDS ORDERED: KETAMINE 50mg/ML 1ml syringe ONE (12:14)
[2024-09-30] MEDS ORDERED: PROPOFOL 10 MG/ML 20 ML IV ONE (12:14)
[2024-09-30] MEDS ORDERED: ONDANSETRON HCL 4 MG/2 ML VIAL ONE (12:14)
[2024-09-30] MEDS: GABAPENTIN 300 MG CAP PO ONE (12:15)
[2024-09-30] MEDS: CELECOXIB 100 MG CAP PO ONE (12:15)
[2024-09-30] MEDS: GABAPENTIN 300 MG CAP ONE (12:16)
[2024-09-30] MEDS: CELECOXIB 100 MG CAP ONE (12:16)
[2024-09-30] MEDS: ACETAMINOPHEN IV 1000 MG/100ML (10MG/ML) IV ONE (12:17)
[2024-09-30] MEDS ORDERED: LIDOCAINE 1% INJ PF 5ML AMP ONE (12:21)
--- NOTE | 2024-09-30 13:17 | DVHOP2 ---
Operative Report - 2 Report Details Date: 09/30/24 Preop Diagnosis: sacral decubitus ulcer Postop Diagnosis: same Surgeon: Dawit Restrepo MD Anesthesiologist: General endotracheal tube Anesthesia: General, Mac (Versed and fentanyl given throughout the procedure. Patient monitored.) Consent: The patient was informed of the risks and benefits of the procedure. These include but are not limited to complications of anesthesia, postoperative infection, incomplete relief of symptoms, recurrence of symptoms, damage to blood vessels, nerves and tendons, deep venous thrombosis, pulmonary embolism and possible need for repeat surgery in the future. Estimated Blood Loss: 100 mL Findings: necrotic ulcer to sacrum Indications for Surgery: sacral decubitus ulcer stage iv Name of Procedure Performed debridement of sacral decubitus ulcer to sacrum Procedure Details Procedure Details: Patient was identified in the preop holding area. He was consented by myself. He was provided to the [facility] from table in a lateral position. He was prepped and draped normal surgical fashion after time-out was performed. The surgery entailed surgical sharp debridement of the necrotic tissue which in complaints proximally 15 x 15 cm stage IV ulcer down to the level of the sacrum. All necrotic tissue was debrided out thoroughly. Hemostasis was obtained with Bovie cauterization. The wound was then pulse irrigated with 3 L of fluid. The wound was then dressed with Betadine-soaked gauze. Patient was brought to the recovery room in stable condition. Sponge and needle counts were correct. Specimen: sacral ulcer Condition Good Disposition Still a Patient DAWIT RESTREPO Jr., MD September 30, 2024 13:17
--- NOTE | 2024-09-30 16:27 | DVHPN2 ---
Progress Note - Dictate Date Seen: September 30, 2024 Has the PT tested + for MRSA If YES, has PT been informed?: No Medical Necessity Reason Pt with a Central, PICC or Fol: No The following are medically ne: Chavez Catheter Reason for chavez catheter: Strict I&O Subjective Patient is S/P debridement of sacral wound He had a size four tracheostomy placed and on 6 L oxygen Patient would like to get his tracheostomy capped closed soon Patient is on pureed diet. No recorded bowel movement Supplementation with Glucerna one can p.o. three times a day has been ordered Protonix change to 40 mg p.o. daily vital signs Vital Sign Date Time Temp Pulse Resp B/P (MAP) Pulse Ox O2 Delivery O2 Flow Rate FiO2 09/30/24 14:20 98.1 93 17 113/73 (86) 99 98.1 09/30/24 13:14 Mask 6.0 09/30/24 13:14 99 Total Intake and Output 09/29/24 09/29/24 09/30/24 15:00 23:00 07:00 Intake Total 100 ml 1300 ml 450 ml Output Total 2000 ml 1000 ml Balance 100 ml -700 ml -550 ml medications Current Medications Medications Dose Ordered Sig/Nikki Route Start Time Stop Time Status Last Admin Dose Admin Diagnostic Test (Pha) 1 strip ACHS 08/19/24 17:00 Cancel Norepinephrine Bitartrate 250 ml @ 3.75 mls/hr Q24H IV 08/19/24 17:15 Cancel Epoetin Aquilino-epbx 10,000 unit TUTHSA@2100 MS 08/26/24 21:00 09/24/24 21:01 10,000 UNIT Sodium Chloride 10 ml QSHIFT@10,22 IV 08/31/24 22:00 09/30/24 11:02 10 ML Artificial Tears 2 drop Q4HR PRN EACHEYE 09/02/24 10:45 09/14/24 21:59 2 DROP Dextrose 50 ml UD PRN IV 09/03/24 21:00 Insulin Human Regular AC SC 09/09/24 07:00 09/30/24 06:05 3 UNITS Diagnostic Test (Pha) 1 strip ACHS 09/09/24 07:00 09/30/24 06:05 1 STRIP Aspirin 81 mg DAILY PO 09/12/24 10:00 09/29/24 09:52 81 MG Clopidogrel Bisulfate 75 mg DAILY PO 09/12/24 10:00 09/29/24 09:52 75 MG Atorvastatin Calcium 80 mg HS PO 09/12/24 22:00 09/29/24 21:35 80 MG Amlodipine Besylate 10 mg DAILY PO 09/18/24 10:00 09/29/24 09:53 10 MG Labetalol HCl 10 mg Q6HPRN PRN IV 09/19/24 16:15 09/20/24 02:57 10 MG Enteral Nutritional Formula 240 ml TIDWM PO 09/23/24 08:00 09/29/24 18:50 240 ML Potassium Chloride 100 ml @ 50 mls/hr Q2H IV 09/23/24 08:00 09/23/24 11:59 UNV Pantoprazole Sodium 40 mg DAILY@0600 PO 09/24/24 06:00 09/30/24 06:03 40 MG Acetaminophen 650 mg Q6HP PRN PO 09/23/24 14:30 Insulin Glargine 20 units HS SC 09/29/24 08:45 09/29/24 21:45 20 UNITS Cefepime HCl 50 ml @ 12.5 mls/hr Q8HR IV 09/29/24 22:00 UNV Vancomycin HCl 0 ml @ 0 mls/hr UD IV 09/29/24 16:30 Cefepime HCl 50 ml @ 12.5 mls/hr Q8HR IV 09/30/24 06:00 09/30/24 06:03 12.5 MLS/HR Vancomycin HCl 200 ml @ 200 mls/hr Q18H IV 09/29/24 19:00 09/29/24 18:56 200 MLS/HR objective General: Awake alert responsive, S/P tracheostomy change HEENT: Head is normocephalic and atraumatic. Pupils are equal, round, and reactive to light Neck: Supple with no cervical lymphadenopathy. Heart: Regular rate without murmur, rub, or gallop. Lungs: Bilateral crackles, most prominent on bases Abdomen: No external sign of injury. Bowel sounds present Abdomen is soft, nontender. Extremities: faint peripheral pulses. There is no clubbing, no cyanosis, and no edema. laboratory and microbiology Laboratory Tests 09/30/24 05:39 Test 09/30/24 05:39 Range/Units Serum Glucose 208 H 74-106 mg/dL Problems(with codes): (1) CVA (cerebral vascular accident) (2) Gastroparesis (3) Anemia (4) Leukocytosis (5) Diabetes type 2, uncontrolled Prognosis Plan Continue nutritional support and trach care ; advance diet as tolerated Discharge planning with home health care is ongoing Dietary Evaluation Review Recommendations by RD: Protein Supplementation, PPN/TPN Comments: Pt is at high risk of malnutrition due to prolonged vomiting leading to inadequate nutrient intake and hypermetabolic state secondary to acute inflammation. Recommendation: 1) Start PN/TPN per pharmacy 2) If GI is accessible, consider TF Pivot 1.5Cal @ 60ml/hr along with Pro-stat 1 pk TID. Start @ 10ml/hr, increase 10ml/hr Q4H until goal rate is reached. Advance TF rate slowly and gradually to prevent Refeeding syndrome. Water Flush 50ml Q4H if allowed. TF Provision --- TF at goal volume to provide 1440 ml total volume, 2160 kcal (+300 kcal via Pro-stat = 2460 kcal), 135 gm pro (+45 gm via ProStat = 180 gm), 1093 ml H20 (meets 100% est. kcal needs, 100% est. protein needs) 3) Monitor Potassium, Phosphate, Magnesium for Refeeding syndrome 4) Des 1 pk daily For DTI 5) Continue current plan of care Expected Outcomes/Goals: Blood glucose to improve Nutrient intake to meet at least 75% estimated needs FU 2-3 days Food and Nutrition Intake (Mod: <75% est energy req 7days Protein Calorie Malnutrition: Severe Plan discussed with: Patient ALDAIR YOUSSEF MD September 30, 2024 16:27
--- NOTE | 2024-09-30 19:49 | DVHPNRES ---
Progress Note Date Seen: September 30, 2024 Resident Creating Document: ELIO SANTOS RESIDENT Has the PT tested + for MRSA If YES, has PT been informed?: No Medical Necessity Reason Pt with a Central, PICC or Fol: No The following are medically ne: Chavez Catheter Reason for chavez catheter: Strict I&O Subjective Review of Systems Patient seen and examined on the bedside He is alert, and orientedX3 Reduced the size of the trach He is on trach collar 4 with 5L O2 . S/P wound debridement of stage 4 sacral ulcer. Objective vital signs Vital Sign Date Time Temp Pulse Resp B/P (MAP) Pulse Ox O2 Delivery O2 Flow Rate FiO2 09/30/24 17:00 97.6 100 16 103/70 (81) 98 97.6 09/30/24 13:14 Mask 6.0 09/30/24 13:14 99 Total Intake and Output 09/29/24 09/29/24 09/30/24 15:00 23:00 07:00 Intake Total 100 ml 1300 ml 450 ml Output Total 2000 ml 1000 ml Balance 100 ml -700 ml -550 ml medications Current Medications Medications Dose Ordered Sig/Nikki Route Start Time Stop Time Status Last Admin Dose Admin Diagnostic Test (Pha) 1 strip ACHS 08/19/24 17:00 Cancel Norepinephrine Bitartrate 250 ml @ 3.75 mls/hr Q24H IV 08/19/24 17:15 Cancel Epoetin Aquilino-epbx 10,000 unit TUTHSA@2100 SC 08/26/24 21:00 09/24/24 21:01 10,000 UNIT Sodium Chloride 10 ml QSHIFT@10,22 IV 08/31/24 22:00 09/30/24 11:02 10 ML Artificial Tears 2 drop Q4HR PRN EACHEYE 09/02/24 10:45 09/14/24 21:59 2 DROP Dextrose 50 ml UD PRN IV 09/03/24 21:00 Insulin Human Regular AC SC 09/09/24 07:00 09/30/24 16:36 9 UNITS Diagnostic Test (Pha) 1 strip ACHS 09/09/24 07:00 09/30/24 16:35 1 STRIP Aspirin 81 mg DAILY PO 09/12/24 10:00 09/29/24 09:52 81 MG Clopidogrel Bisulfate 75 mg DAILY PO 09/12/24 10:00 09/29/24 09:52 75 MG Atorvastatin Calcium 80 mg HS PO 09/12/24 22:00 09/29/24 21:35 80 MG Amlodipine Besylate 10 mg DAILY PO 09/18/24 10:00 09/29/24 09:53 10 MG Labetalol HCl 10 mg Q6HPRN PRN IV 09/19/24 16:15 09/20/24 02:57 10 MG Enteral Nutritional Formula 240 ml TIDWM PO 09/23/24 08:00 09/30/24 16:35 240 ML Potassium Chloride 100 ml @ 50 mls/hr Q2H IV 09/23/24 08:00 09/23/24 11:59 UNV Pantoprazole Sodium 40 mg DAILY@0600 PO 09/24/24 06:00 09/30/24 06:03 40 MG Acetaminophen 650 mg Q6HP PRN PO 09/23/24 14:30 Insulin Glargine 20 units HS SC 09/29/24 08:45 09/29/24 21:45 20 UNITS Cefepime HCl 50 ml @ 12.5 mls/hr Q8HR IV 09/29/24 22:00 UNV Vancomycin HCl 0 ml @ 0 mls/hr UD IV 09/29/24 16:30 Cefepime HCl 50 ml @ 12.5 mls/hr Q8HR IV 09/30/24 06:00 09/30/24 06:03 12.5 MLS/HR Vancomycin HCl 200 ml @ 200 mls/hr Q18H IV 09/29/24 19:00 09/29/24 18:56 200 MLS/HR Examination Examination: Constitutional: Patient is alert and oriented X3 and trach collar Gen - mild conjuctival pallor, no icterus, no cyanosis, no clubbing, no LAD, 1+ edema in the feet . Skin - Patients skin is warm and dry. HEENT - normocephalic, atraumatic, moist mucous membranes. Neck - full ROM, no LAD, no jvd Pulmonary - B/L air entry present, diffuse rales, no wheezing, no stridor. cardiovascular - regular S1,S2 heard, no added sounds, no murmurs heard. GI - soft abdomen. no hepatospleenomegaly. bowel sounds hypoactive sacrum- ulcer seen , stage 3 ulcer with black eschar and surrounding pinkish granulation tissue. Neurological - Strength at / X3 ext, Normal tone, Sensation intact, grossly intact cranial nerves laboratory and microbiology Laboratory Tests 09/30/24 05:39 Test 09/30/24 05:39 Range/Units Serum Glucose 208 H 74-106 mg/dL Microbiology Date/Time Source Procedure Growth Status 09/16/24 16:00 Sputum Gram Stain - Final Complete 09/16/24 16:00 Sputum Respiratory Culture - Final Complete 09/10/24 10:47 Catheter Tip Other Aerobic Culture - Final Complete 09/04/24 10:19 Blood Blood Culture - Final NO GROWTH AFTER 5 DAYS OF INCUBATION. Complete 08/31/24 14:00 Urine - [place] Urine Culture - Final Complete Labs and/or images reviewed: Labs reviewed by me, Image(s) reviewed by me Problem List/Assessment/Plan Problem List/Assessment/Plan Assessment and plan: Neurology Acute ischemic stroke in the rt cerebellar hemisphere and Left frontoparietal Acute metabolic encephalopathy likely due to sepsis/HHS - MRI demonstrated Acute infarction within the right cerebellar hemisphere measuring 3.2 x 0.7 cm. Left frontoparietal increased T2 signal with mild diffusion restriction signal. This could represent subacute infarct or underlying mass/lesion. - on mechanical ventilation - S/P tracheostomy - Patient passed the window period of tPA therapy for ischemic stroke and also he has a recent history of GI bleeding in 1 week. - Continue aspirin 81 mg daily, clopidogrel 75 mg daily and atorvastatin 80 mg at HS - Neurology evaluated the patient and recommended ESTHER for possible identification of the source of the emboli for ischemic stroke. EEG demonstrated borderline normal EEG and no focal lateralized or epileptiform features noted. - Patient underwent ESTHER today and revealed there are no significant Doppler anomalies. No significant tricuspid mitral or aortic insufficiency. Pulmonic insufficiency was not visualized. No pericardial effusion masses or vegetations discernible. No intracardiac masses. No intra-atrial shunt. No VSD or ASD noted. Bubble studies did not reveal intra-atrial shunting or crossover Respiratory Acute hypoxic respiratory failure Probable aspiration pneumonia ARDS - S/P tracheostomy and on trach collar with 6L O2 - chest x-ray shows bilateral patchy opacities - ABG compensated - duonebs q6hr - IV antibiotics Vancomycin and cefepime - sputum culture showed growth of yeast Cardiovascular Shock due to sepsis possibly from aspiration Acute on chronic heart failure with reduced ejection fraction Hypertensive heart disease - echo showed LVEF60% on 09/16 - Amlodipine 10 mg po daily. Infectious disease Septic shock likely due to aspiration pneumonia Infected Sacral ulcer, unstageable pressure ulcer - on IV antibiotics - culture from sacral ulcer growing enterococcus - blood culture showed no growth - on Vancomycin and levofloxacin Nephrology Metabolic alkalosis likely from intractable vomiting, resolved KATE on CKD likely due to be VMN from dehydration - Last dialysis on 09/07/24 and hold off dialysis per nephrology. - urine output improved - Epotein alpha-epbx per protocol GI ?Gastroparesis ?Upper GI bleed - KUB shows nonobstructive bowel gas pattern - IV Protonix daily - 4 units of PRBC given, H&H stable - GI on board - CT with PO contrast showed no obstruction. - FOBT positive - On pureed diet Endocrinology Uncontrolled diabetes mellitus with a hyperglycemia Morbid obesity - on insulin sliding scale - lantus 20 unit HS Skin - Stage 4 sacral ulcer - S/P wound debridement . Diet: Consistent carbohydrate diet DVT prophylaxis: hold heparin for the procedure Left upper arm midline placed on 09/18/24 Chavez's catheter placed on 09/09/24 Goals of care discussed with the patient's sister Sheree for over 27 mins. Full code Critical care time spent 41 minutes Plan discussed with Dr. Flowers Plan discussed with: Other (Sister, RN) My Orders My Orders Orders - ELIO SANTOS RESIDENT Procedure Category Date Status Time Creatinine LAB 10/01/24 Verified 04:00 Pureed DIET 09/30/24 Transmitted Dinner Dietary Evaluation Review Recommendations by RD: Protein Supplementation, PPN/TPN Comments: Pt is at high risk of malnutrition due to prolonged vomiting leading to inadequate nutrient intake and hypermetabolic state secondary to acute inflammation. Recommendation: 1) Start PN/TPN per pharmacy 2) If GI is accessible, consider TF Pivot 1.5Cal @ 60ml/hr along with Pro-stat 1 pk TID. Start @ 10ml/hr, increase 10ml/hr Q4H until goal rate is reached. Advance TF rate slowly and gradually to prevent Refeeding syndrome. Water Flush 50ml Q4H if allowed. TF Provision --- TF at goal volume to provide 1440 ml total volume, 2160 kcal (+300 kcal via Pro-stat = 2460 kcal), 135 gm pro (+45 gm via ProStat = 180 gm), 1093 ml H20 (meets 100% est. kcal needs, 100% est. protein needs) 3) Monitor Potassium, Phosphate, Magnesium for Refeeding syndrome 4) Des 1 pk daily For DTI 5) Continue current plan of care Expected Outcomes/Goals: Blood glucose to improve Nutrient intake to meet at least 75% estimated needs FU 2-3 days Food and Nutrition Intake (Mod: <75% est energy req 7days Protein Calorie Malnutrition: Severe Date of Service: September 30, 2024 Billing Provider: ARMANDO FLOWERS MD Common Visit Codes: 20188-ECSYTDWN CARE 30-74 MIN DANIELLEMARCIAELIO RESIDENT September 30, 2024 19:49 ARMANDO FLOWERS MD October 01, 2024 12:10
[2024-10-01] VITALS (9 sets, daily range): BP systolic 96–132; BP diastolic 46–78; PULSE 88–110; RESP 18–19; TEMP 97.4–98.2; O2SAT 95–99
--- NOTE | 2024-10-01 05:40 | DVH ---
EXAM: XR Chest, 1 View CLINICAL INDICATION: Status post tracheostomy TECHNIQUE: Frontal view of the chest. COMPARISON: XY CHEST PORTABLE on DOS: 09/29/24, XY CHEST PORTABLE on DOS: 09/23/24, XY CHEST PORTABLE on DOS: 09/21/24, XY CHEST PORTABLE on DOS: 09/19/24, XY CHEST PORTABLE on DOS: 09/18/24 FINDINGS: LUNGS AND PLEURAL SPACES: Bibasilar atelectasis or pneumonia. No pneumothorax. HEART: Unremarkable. No cardiomegaly. MEDIASTINUM: Unremarkable. Normal mediastinal contour. BONES/JOINTS: Unremarkable. No acute fracture. TUBES, LINES AND DEVICES: Tracheostomy tube in satisfactory position. OTHER FINDINGS: . IMPRESSION: Bibasilar atelectasis or pneumonia.
[2024-10-01 07:59] LABS: Basophils # (auto) 0.1 10 ^3/uL (0-0.2); Basophils % (auto) 0.3 % (0.0-2.0); Eosinophils # (auto) 0.3 10 ^3/uL (0-0.8); Eosinophils % (auto) 1.3 % (0.0-7.0); Hematocrit 34.1 % (41.0-53.0); Hemoglobin 11.2 g/dL (13.5-17.5); Lymphocytes # (auto) 3.4 10 ^3/uL (0.4-5.4); Lymphocytes % (auto) 14.1 % (10.0-50.0); Mean Corpuscular Hemoglobin 28.3 pg (28.0-32.0); Mean Corpuscular Hgb Conc. 32.8 g/dL (32.0-36.0); Mean Corpuscular Volume 86.5 fL (80.0-100.0); Monocytes # (auto) 1.5 10 ^3/uL (0-1.3); Monocytes % (auto) 6.2 % (0.0-12.0); Neutrophils # (auto) 19.1 10 ^3/uL (1.6-8.6); Neutrophils % (auto) 78.1 % (37.0-80.0); Nucleated Red Blood Cells % 0.1 %; Platelet Count (auto) 384 10^3/uL (140-450); Red Blood Cells 3.94 10^6/uL (4.5-5.90); Red Cell Distribution Width 15.5 % (11.8-14.3); White Blood Cell 24.5 10^3/uL (4.4-10.8)
[2024-10-01 08:07] LABS: Anion Gap 11 (5-15); Chloride 105 mmol/L (98-107); Potassium 3.8 mmol/L (3.5-5.1); Sodium 136 mmol/L (136-145)
[2024-10-01 08:08] LABS: Calcium 9.8 mg/dL (8.7-10.4)
[2024-10-01 08:11] LABS: Carbon Dioxide 20 mmol/L (20-31)
[2024-10-01 08:13] LABS: BUN/Creatinine Ratio 14.6 (10.0-20.0); Blood Urea Nitrogen 18 mg/dL (9-23)
[2024-10-01 08:24] LABS: Glucose 171 mg/dL (74-106)
--- NOTE | 2024-10-01 11:35 | DVHPN2 ---
Progress Note Date Seen: October 01, 2024 Has the PT tested + for MRSA If YES, has PT been informed?: No Medical Necessity Reason Pt with a Central, PICC or Fol: No The following are medically ne: Chavez Catheter Reason for chavez catheter: Strict I&O Subjective Review of Systems: HEENT:Normal, CVS:Normal, RESPIRATORY:Normal, GI:Normal, :Normal, MSK:Normal, NEURO:Normal Objective vital signs Vital Sign Date Time Temp Pulse Resp B/P (MAP) Pulse Ox O2 Delivery O2 Flow Rate FiO2 10/01/24 09:00 97.6 99 18 123/72 (89) 98 97.6 10/01/24 08:00 Room Air* 0 N/A Trach Collar Total Intake and Output 09/30/24 09/30/24 10/01/24 15:00 23:00 07:00 Intake Total 150 ml 500 ml 850 ml Balance 150 ml 500 ml 850 ml medications Current Medications Medications Dose Ordered Sig/Nikki Route Start Time Stop Time Status Last Admin Dose Admin Diagnostic Test (Pha) 1 strip ACHS 08/19/24 17:00 Cancel Norepinephrine Bitartrate 250 ml @ 3.75 mls/hr Q24H IV 08/19/24 17:15 Cancel Epoetin Aquilino-epbx 10,000 unit TUTHSA@2100 DC 08/26/24 21:00 09/24/24 21:01 10,000 UNIT Artificial Tears 2 drop Q4HR PRN EACHEYE 09/02/24 10:45 09/14/24 21:59 2 DROP Dextrose 50 ml UD PRN IV 09/03/24 21:00 Insulin Human Regular AC DC 09/09/24 07:00 10/01/24 06:01 3 UNITS Diagnostic Test (Pha) 1 strip ACHS 09/09/24 07:00 10/01/24 06:01 1 STRIP Aspirin 81 mg DAILY PO 09/12/24 10:00 10/01/24 08:42 81 MG Clopidogrel Bisulfate 75 mg DAILY PO 09/12/24 10:00 10/01/24 08:42 75 MG Atorvastatin Calcium 80 mg HS PO 09/12/24 22:00 09/30/24 21:13 80 MG Amlodipine Besylate 10 mg DAILY PO 09/18/24 10:00 10/01/24 08:43 10 MG Labetalol HCl 10 mg Q6HPRN PRN IV 09/19/24 16:15 09/20/24 02:57 10 MG Enteral Nutritional Formula 240 ml TIDWM PO 09/23/24 08:00 10/01/24 08:38 240 ML Potassium Chloride 100 ml @ 50 mls/hr Q2H IV 09/23/24 08:00 09/23/24 11:59 UNV Pantoprazole Sodium 40 mg DAILY@0600 PO 09/24/24 06:00 10/01/24 05:59 40 MG Acetaminophen 650 mg Q6HP PRN PO 09/23/24 14:30 Insulin Glargine 20 units HS SC 09/29/24 08:45 09/30/24 21:23 20 UNITS Cefepime HCl 50 ml @ 12.5 mls/hr Q8HR IV 09/29/24 22:00 UNV Vancomycin HCl 0 ml @ 0 mls/hr UD IV 09/29/24 16:30 Cefepime HCl 50 ml @ 12.5 mls/hr Q8HR IV 09/30/24 06:00 10/01/24 07:26 12.5 MLS/HR Vancomycin HCl 200 ml @ 200 mls/hr Q18H IV 09/29/24 19:00 10/01/24 06:00 200 MLS/HR laboratory and microbiology Laboratory Tests 10/01/24 07:05 Test 10/01/24 07:05 Range/Units Serum Glucose 171 H 74-106 mg/dL Microbiology Date/Time Source Procedure Growth Status 09/16/24 16:00 Sputum Gram Stain - Final Complete 09/16/24 16:00 Sputum Respiratory Culture - Final Complete 09/10/24 10:47 Catheter Tip Other Aerobic Culture - Final Complete 09/04/24 10:19 Blood Blood Culture - Final NO GROWTH AFTER 5 DAYS OF INCUBATION. Complete 08/31/24 14:00 Urine - [place] Urine Culture - Final Complete Problem List/Assessment/Plan Problems(with codes): (1) Uncontrolled diabetes mellitus Problem List/Assessment/Plan Patient with a worsening discomfort over his sacrum with a known sacral wound w hich has become boggy. The patient does have a white count. We will plan on performing a surgical debridement tomorrow. Discussed the procedure with the patient he is willing to proceed as soon as possible. Patient understands risks benefits of the procedure. Patient is looking forward to getting home once home ferrous set up for his wound. Plan discussed with: Patient, Other (Sister) My Orders My Orders Patient is postop after sacral decubitus ulcer postop day 1. Today I discussed with the patient as well as the sister who is a home care nurse. That the patient we will need to go home with a wound VAC due to the extent of the debridement of the large sacral decubitus wound. I have asked the to have Wound Care see the patient today with wound nurse placing the wound VAC here we will plan on getting the wound VAC supplies and home care set up for the patient. Once this is all in place than the patient we will be able to go home from a surgical standpoint. Patient is understanding weakness and is in agreement with the plan. Dietary Evaluation Review Recommendations by RD: Protein Supplementation, PPN/TPN Comments: Pt is at high risk of malnutrition due to prolonged vomiting leading to inadequate nutrient intake and hypermetabolic state secondary to acute inflammation. Recommendation: 1) Start PN/TPN per pharmacy 2) If GI is accessible, consider TF Pivot 1.5Cal @ 60ml/hr along with Pro-stat 1 pk TID. Start @ 10ml/hr, increase 10ml/hr Q4H until goal rate is reached. Advance TF rate slowly and gradually to prevent Refeeding syndrome. Water Flush 50ml Q4H if allowed. TF Provision --- TF at goal volume to provide 1440 ml total volume, 2160 kcal (+300 kcal via Pro-stat = 2460 kcal), 135 gm pro (+45 gm via ProStat = 180 gm), 1093 ml H20 (meets 100% est. kcal needs, 100% est. protein needs) 3) Monitor Potassium, Phosphate, Magnesium for Refeeding syndrome 4) Des 1 pk daily For DTI 5) Continue current plan of care Expected Outcomes/Goals: Blood glucose to improve Nutrient intake to meet at least 75% estimated needs FU 2-3 days Food and Nutrition Intake (Mod: <75% est energy req 7days Protein Calorie Malnutrition: Severe KAILASH GUTIERREZ Jr., MD October 01, 2024 11:35
[2024-10-01] MEDS: INSULIN LANTUS (GLARGINE) 1 /0.01ml (100units/ml) SC SCH (14:15)
[2024-10-01] MEDS: ACETAMINOPHEN 325 MG TAB PO PRN (14:51)
--- NOTE | 2024-10-01 19:45 | DVHPNRES ---
Progress Note Date Seen: October 01, 2024 Resident Creating Document: ELIO SANTOS RESIDENT Has the PT tested + for MRSA If YES, has PT been informed?: No Medical Necessity Reason Pt with a Central, PICC or Fol: No The following are medically ne: Chavez Catheter Reason for chavez catheter: Strict I&O Subjective Review of Systems Patient seen and examined on the bedside He is alert, and orientedX3 Reduced the size of the trach He is on trach collar 4 with 5L O2 . S/P wound debridement of stage 4 sacral ulcer day 1, surgery evaluated the patient and recommended packing of the wound with povidone iodine soaked gauze and wound vac for healing of the wound. Patient refused wound vac because of the pain and also he will not be able to afford the co-pay for the wound vac. Objective vital signs Vital Sign Date Time Temp Pulse Resp B/P (MAP) Pulse Ox O2 Delivery O2 Flow Rate FiO2 10/01/24 17:00 97.8 102 18 120/69 (86) 99 97.8 10/01/24 08:00 Room Air* 0 N/A Trach Collar Total Intake and Output 09/30/24 09/30/24 10/01/24 15:00 23:00 07:00 Intake Total 150 ml 500 ml 850 ml Balance 150 ml 500 ml 850 ml medications Current Medications Medications Dose Ordered Sig/Nikki Route Start Time Stop Time Status Last Admin Dose Admin Diagnostic Test (Pha) 1 strip ACHS 08/19/24 17:00 Cancel Norepinephrine Bitartrate 250 ml @ 3.75 mls/hr Q24H IV 08/19/24 17:15 Cancel Epoetin Aquilino-epbx 10,000 unit TUTHSA@2100 SC 08/26/24 21:00 09/24/24 21:01 10,000 UNIT Artificial Tears 2 drop Q4HR PRN EACHEYE 09/02/24 10:45 09/14/24 21:59 2 DROP Dextrose 50 ml UD PRN IV 09/03/24 21:00 Insulin Human Regular AC SC 09/09/24 07:00 10/01/24 17:20 6 UNITS Diagnostic Test (Pha) 1 strip ACHS 09/09/24 07:00 10/01/24 17:18 1 STRIP Aspirin 81 mg DAILY PO 09/12/24 10:00 10/01/24 08:42 81 MG Clopidogrel Bisulfate 75 mg DAILY PO 09/12/24 10:00 10/01/24 08:42 75 MG Atorvastatin Calcium 80 mg HS PO 09/12/24 22:00 09/30/24 21:13 80 MG Amlodipine Besylate 10 mg DAILY PO 09/18/24 10:00 10/01/24 08:43 10 MG Labetalol HCl 10 mg Q6HPRN PRN IV 09/19/24 16:15 09/20/24 02:57 10 MG Enteral Nutritional Formula 240 ml TIDWM PO 09/23/24 08:00 10/01/24 17:18 240 ML Potassium Chloride 100 ml @ 50 mls/hr Q2H IV 09/23/24 08:00 09/23/24 11:59 UNV Pantoprazole Sodium 40 mg DAILY@0600 PO 09/24/24 06:00 10/01/24 05:59 40 MG Acetaminophen 650 mg Q6HP PRN PO 09/23/24 14:30 10/01/24 14:51 650 MG Cefepime HCl 50 ml @ 12.5 mls/hr Q8HR IV 09/29/24 22:00 UNV Vancomycin HCl 0 ml @ 0 mls/hr UD IV 09/29/24 16:30 Cefepime HCl 50 ml @ 12.5 mls/hr Q8HR IV 09/30/24 06:00 10/01/24 14:50 12.5 MLS/HR Vancomycin HCl 200 ml @ 200 mls/hr Q18H IV 09/29/24 19:00 10/01/24 06:00 200 MLS/HR Insulin Glargine 30 units HS SC 10/01/24 14:15 Examination Examination: Constitutional: Patient is alert and oriented X3 and trach collar Gen - mild conjuctival pallor, no icterus, no cyanosis, no clubbing, no LAD, 1+ edema in the feet . Skin - Patients skin is warm and dry. HEENT - normocephalic, atraumatic, moist mucous membranes. Neck - full ROM, no LAD, no jvd Pulmonary - B/L air entry present, diffuse rales, no wheezing, no stridor. cardiovascular - regular S1,S2 heard, no added sounds, no murmurs heard. GI - soft abdomen. no hepatospleenomegaly. bowel sounds hypoactive sacrum- ulcer seen , stage 4 ulcer , s/p debridement Neurological - Strength at 5/5 X3 ext, Normal tone, Sensation intact, grossly intact cranial nerves laboratory and microbiology Laboratory Tests 10/01/24 07:05 Test 10/01/24 07:05 Range/Units Serum Glucose 171 H 74-106 mg/dL Microbiology Date/Time Source Procedure Growth Status 09/16/24 16:00 Sputum Gram Stain - Final Complete 09/16/24 16:00 Sputum Respiratory Culture - Final Complete 09/10/24 10:47 Catheter Tip Other Aerobic Culture - Final Complete 09/04/24 10:19 Blood Blood Culture - Final NO GROWTH AFTER 5 DAYS OF INCUBATION. Complete 08/31/24 14:00 Urine - [place] Urine Culture - Final Complete Labs and/or images reviewed: Labs reviewed by me, Image(s) reviewed by me Problem List/Assessment/Plan Problem List/Assessment/Plan Assessment and plan: Neurology Acute ischemic stroke in the rt cerebellar hemisphere and Left frontoparietal Acute metabolic encephalopathy likely due to sepsis/HHS - MRI demonstrated Acute infarction within the right cerebellar hemisphere measuring 3.2 x 0.7 cm. Left frontoparietal increased T2 signal with mild diffusion restriction signal. This could represent subacute infarct or underlying mass/lesion. - on mechanical ventilation - S/P tracheostomy - Patient passed the window period of tPA therapy for ischemic stroke and also he has a recent history of GI bleeding in 1 week. - Continue aspirin 81 mg daily, clopidogrel 75 mg daily and atorvastatin 80 mg at HS - Neurology evaluated the patient and recommended ESTHER for possible identification of the source of the emboli for ischemic stroke. EEG demonstrated borderline normal EEG and no focal lateralized or epileptiform features noted. - Patient underwent ESTHER today and revealed there are no significant Doppler anomalies. No significant tricuspid mitral or aortic insufficiency. Pulmonic insufficiency was not visualized. No pericardial effusion masses or vegetations discernible. No intracardiac masses. No intra-atrial shunt. No VSD or ASD noted. Bubble studies did not reveal intra-atrial shunting or crossover Respiratory Acute hypoxic respiratory failure Probable aspiration pneumonia ARDS - S/P tracheostomy and on trach collar with 6L O2 - chest x-ray shows bilateral patchy opacities - ABG compensated - duonebs q6hr - IV antibiotics Vancomycin and cefepime - sputum culture showed growth of yeast Cardiovascular Shock due to sepsis possibly from aspiration Acute on chronic heart failure with reduced ejection fraction Hypertensive heart disease - echo showed LVEF60% on 09/16 - Amlodipine 10 mg po daily. Infectious disease Septic shock likely due to aspiration pneumonia Infected Sacral ulcer, s/p wound debridement of stage 4 sacral ulcer - on IV antibiotics - Pending new wound culture - blood culture showed no growth - on Vancomycin and cefepime Nephrology Metabolic alkalosis likely from intractable vomiting, resolved KATE on CKD likely due to be VMN from dehydration - Last dialysis on 09/07/24 and hold off dialysis per nephrology. - urine output improved - Epotein alpha-epbx per protocol GI ?Gastroparesis ?Upper GI bleed - KUB shows nonobstructive bowel gas pattern - IV Protonix daily - 4 units of PRBC given, H&H stable - GI on board - CT with PO contrast showed no obstruction. - FOBT positive Endocrinology Uncontrolled diabetes mellitus with a hyperglycemia Morbid obesity - on insulin sliding scale - lantus 30 unit HS Skin - Stage 4 sacral ulcer - S/P wound debridement . Diet: Consistent carbohydrate diet DVT prophylaxis: hold heparin for the procedure Goals of care discussed with the patient's sister Sheree for over 27 mins. Full code Critical care time spent 41 minutes Plan discussed with Dr. Flowers Plan discussed with: Patient, Other My Orders My Orders Orders - ELIO SANTOS RESIDENT Procedure Category Date Status Time Chest Portable XY 10/01/24 Resulted 04:00 Vancomycin Per ROHINI 10/03/24 In Process Pharmacy Protoc 13:00 Insulin Lantus PHA 10/01/24 In Process (Glargine) (Lantus) 14:15 Dietary Evaluation Review Recommendations by RD: Protein Supplementation, PPN/TPN Comments: Pt is at high risk of malnutrition due to prolonged vomiting leading to inadequate nutrient intake and hypermetabolic state secondary to acute inflammation. Recommendation: 1) Start PN/TPN per pharmacy 2) If GI is accessible, consider TF Pivot 1.5Cal @ 60ml/hr along with Pro-stat 1 pk TID. Start @ 10ml/hr, increase 10ml/hr Q4H until goal rate is reached. Advance TF rate slowly and gradually to prevent Refeeding syndrome. Water Flush 50ml Q4H if allowed. TF Provision --- TF at goal volume to provide 1440 ml total volume, 2160 kcal (+300 kcal via Pro-stat = 2460 kcal), 135 gm pro (+45 gm via ProStat = 180 gm), 1093 ml H20 (meets 100% est. kcal needs, 100% est. protein needs) 3) Monitor Potassium, Phosphate, Magnesium for Refeeding syndrome 4) Des 1 pk daily For DTI 5) Continue current plan of care Expected Outcomes/Goals: Blood glucose to improve Nutrient intake to meet at least 75% estimated needs FU 2-3 days Food and Nutrition Intake (Mod: <75% est energy req 7days Protein Calorie Malnutrition: Severe Date of Service: October 01, 2024 Billing Provider: ARMANDO FLOWERS MD Common Visit Codes: [id number] CARE 30-74 MIN ELIO SANTOS RESIDENT October 01, 2024 19:45 ARMANDO FLOWERS MD Oct 04, 2024 11:38
--- NOTE | 2024-10-01 20:48 | DVHPN2 ---
Progress Note - Dictate Date Seen: October 01, 2024 Has the PT tested + for MRSA If YES, has PT been informed?: No Medical Necessity Reason Pt with a Central, PICC or Fol: No The following are medically ne: Chavez Catheter Reason for chavez catheter: Strict I&O Subjective Patient is S/P debridement of sacral wound Patient does not like wound VAC and states it is very painful and he would like it removed Patient's tracheostomy decannulated today patient is tolerating his diet No recorded bowel movement Supplementation with Glucerna one can p.o. three times a day has been ordered Protonix change to 40 mg p.o. daily vital signs Vital Sign Date Time Temp Pulse Resp B/P (MAP) Pulse Ox O2 Delivery O2 Flow Rate FiO2 10/01/24 17:00 97.8 102 18 120/69 (86) 99 97.8 10/01/24 08:00 Room Air* 0 N/A Trach Collar Total Intake and Output 09/30/24 09/30/24 10/01/24 15:00 23:00 07:00 Intake Total 150 ml 500 ml 850 ml Balance 150 ml 500 ml 850 ml medications Current Medications Medications Dose Ordered Sig/Nikki Route Start Time Stop Time Status Last Admin Dose Admin Diagnostic Test (Pha) 1 strip ACHS 08/19/24 17:00 Cancel Norepinephrine Bitartrate 250 ml @ 3.75 mls/hr Q24H IV 08/19/24 17:15 Cancel Epoetin Aquilino-epbx 10,000 unit TUTHSA@2100 SC 08/26/24 21:00 09/24/24 21:01 10,000 UNIT Artificial Tears 2 drop Q4HR PRN EACHEYE 09/02/24 10:45 09/14/24 21:59 2 DROP Dextrose 50 ml UD PRN IV 09/03/24 21:00 Insulin Human Regular AC SC 09/09/24 07:00 10/01/24 17:20 6 UNITS Diagnostic Test (Pha) 1 strip ACHS 09/09/24 07:00 10/01/24 17:18 1 STRIP Aspirin 81 mg DAILY PO 09/12/24 10:00 10/01/24 08:42 81 MG Clopidogrel Bisulfate 75 mg DAILY PO 09/12/24 10:00 10/01/24 08:42 75 MG Atorvastatin Calcium 80 mg HS PO 09/12/24 22:00 09/30/24 21:13 80 MG Amlodipine Besylate 10 mg DAILY PO 09/18/24 10:00 10/01/24 08:43 10 MG Labetalol HCl 10 mg Q6HPRN PRN IV 09/19/24 16:15 09/20/24 02:57 10 MG Enteral Nutritional Formula 240 ml TIDWM PO 09/23/24 08:00 10/01/24 17:18 240 ML Potassium Chloride 100 ml @ 50 mls/hr Q2H IV 09/23/24 08:00 09/23/24 11:59 UNV Pantoprazole Sodium 40 mg DAILY@0600 PO 09/24/24 06:00 10/01/24 05:59 40 MG Acetaminophen 650 mg Q6HP PRN PO 09/23/24 14:30 10/01/24 14:51 650 MG Cefepime HCl 50 ml @ 12.5 mls/hr Q8HR IV 09/29/24 22:00 UNV Vancomycin HCl 0 ml @ 0 mls/hr UD IV 09/29/24 16:30 Cefepime HCl 50 ml @ 12.5 mls/hr Q8HR IV 09/30/24 06:00 10/01/24 14:50 12.5 MLS/HR Vancomycin HCl 200 ml @ 200 mls/hr Q18H IV 09/29/24 19:00 10/01/24 06:00 200 MLS/HR Insulin Glargine 30 units HS SC 10/01/24 14:15 objective General: Awake alert responsive, S/P tracheostomy change HEENT: Head is normocephalic and atraumatic. Pupils are equal, round, and reactive to light Neck: Supple with no cervical lymphadenopathy. Heart: Regular rate without murmur, rub, or gallop. Lungs: Bilateral crackles, most prominent on bases Abdomen: No external sign of injury. Bowel sounds present Abdomen is soft, nontender. Extremities: faint peripheral pulses. There is no clubbing, no cyanosis, and no edema. laboratory and microbiology Laboratory Tests 10/01/24 07:05 Test 10/01/24 07:05 Range/Units Serum Glucose 171 H 74-106 mg/dL Problems(with codes): (1) Uncontrolled diabetes mellitus (2) CVA (cerebral vascular accident) (3) Gastroparesis (4) Leukocytosis (5) Anemia (6) Diabetes type 2, uncontrolled Prognosis Plan PT and discharge planning in progress Continue ambulation Local wound care IV antibiotics Nutritional support nutritional supplements Dietary Evaluation Review Recommendations by RD: Protein Supplementation, PPN/TPN Comments: Pt is at high risk of malnutrition due to prolonged vomiting leading to inadequate nutrient intake and hypermetabolic state secondary to acute inflammation. Recommendation: 1) Start PN/TPN per pharmacy 2) If GI is accessible, consider TF Pivot 1.5Cal @ 60ml/hr along with Pro-stat 1 pk TID. Start @ 10ml/hr, increase 10ml/hr Q4H until goal rate is reached. Advance TF rate slowly and gradually to prevent Refeeding syndrome. Water Flush 50ml Q4H if allowed. TF Provision --- TF at goal volume to provide 1440 ml total volume, 2160 kcal (+300 kcal via Pro-stat = 2460 kcal), 135 gm pro (+45 gm via ProStat = 180 gm), 1093 ml H20 (meets 100% est. kcal needs, 100% est. protein needs) 3) Monitor Potassium, Phosphate, Magnesium for Refeeding syndrome 4) Des 1 pk daily For DTI 5) Continue current plan of care Expected Outcomes/Goals: Blood glucose to improve Nutrient intake to meet at least 75% estimated needs FU 2-3 days Food and Nutrition Intake (Mod: <75% est energy req 7days Protein Calorie Malnutrition: Severe Plan discussed with: Patient, Other (Nurse Caden) ALDAIR YOUSSEF MD October 01, 2024 20:48
[2024-10-02] VITALS (7 sets, daily range): BP systolic 106–138; BP diastolic 69–82; PULSE 99–125; RESP 18–19; TEMP 97.5–98.6; O2SAT 95–99
[2024-10-02 06:53] LABS: Basophils # (auto) 0.2 10 ^3/uL (0-0.2); Basophils % (auto) 0.9 % (0.0-2.0); Eosinophils # (auto) 0.7 10 ^3/uL (0-0.8); Eosinophils % (auto) 3.5 % (0.0-7.0); Hematocrit 34.4 % (41.0-53.0); Hemoglobin 11.7 g/dL (13.5-17.5); Lymphocytes # (auto) 2.7 10 ^3/uL (0.4-5.4); Lymphocytes % (auto) 13.5 % (10.0-50.0); Mean Corpuscular Volume 85.3 fL (80.0-100.0); Monocytes # (auto) 1.5 10 ^3/uL (0-1.3); Monocytes % (auto) 7.5 % (0.0-12.0); Neutrophils # (auto) 14.7 10 ^3/uL (1.6-8.6); Neutrophils % (auto) 74.6 % (37.0-80.0); Platelet Count (auto) 407 10^3/uL (140-450); Red Blood Cells 4.03 10^6/uL (4.5-5.90); Red Cell Distribution Width 15.3 % (11.8-14.3); White Blood Cell 19.7 10^3/uL (4.4-10.8)
--- NOTE | 2024-10-02 15:26 | DVHPNRES ---
Progress Note Date Seen: October 02, 2024 Resident Creating Document: ELIO SANTOS RESIDENT Has the PT tested + for MRSA If YES, has PT been informed?: No Medical Necessity Reason Pt with a Central, PICC or Fol: No The following are medically ne: Chavez Catheter Reason for chavez catheter: Strict I&O Subjective Review of Systems Patient seen and examined on the bedside He is alert, and orientedX3 Reduced the size of the trach He is on trach collar 4 with 5L O2 . S/P wound debridement of stage 4 sacral ulcer day 2, surgery evaluated the patient and recommended packing of the wound with povidone iodine soaked gauze and wound vac for healing of the wound. Patient refused wound vac because of the pain and also he will not be able to afford the co-pay for the wound vac. Dr. Restrepo recommended inpatient rehab or home health for wound care and continuation of iV antibiotics. Patient's sister wants home health for wound care, continuation of IV antibiotics and physical therapy. Consulted social services director for arrangement of home health and insurance approval. Patient still have leucocytosis and pending culture of wound debridement. Patient is on IV vancomycin per pharmacy and IV cefepime 1 gm Q8hr and will deescalate the antibiotic according to C/S. Extensive discussion with sister regarding his condition and also safe discharge plan. Sister agreed to stay until Saturday and will be following up with Dr. Harris's Suggestion regarding discharge plan. Objective vital signs Vital Sign Date Time Temp Pulse Resp B/P (MAP) Pulse Ox O2 Delivery O2 Flow Rate FiO2 10/02/24 13:00 97.7 125 19 110/77 (88) 99 97.7 10/02/24 08:00 Room Air* 0 N/A Trach Collar Total Intake and Output 10/01/24 10/01/24 10/02/24 15:00 23:00 07:00 Intake Total 50 ml 1645 ml 2650 ml Output Total 1600 ml 3800 ml Balance 50 ml 45 ml -1150 ml medications Current Medications Medications Dose Ordered Sig/Nikki Route Start Time Stop Time Status Last Admin Dose Admin Diagnostic Test (Pha) 1 strip ACHS 08/19/24 17:00 Cancel Norepinephrine Bitartrate 250 ml @ 3.75 mls/hr Q24H IV 08/19/24 17:15 Cancel Epoetin Aquilino-epbx 10,000 unit TUTHSA@2100 SC 08/26/24 21:00 09/24/24 21:01 10,000 UNIT Dextrose 50 ml UD PRN IV 09/03/24 21:00 Insulin Human Regular AC SC 09/09/24 07:00 10/02/24 11:41 6 UNITS Diagnostic Test (Pha) 1 strip ACHS 09/09/24 07:00 10/02/24 11:40 1 STRIP Aspirin 81 mg DAILY PO 09/12/24 10:00 10/02/24 08:47 81 MG Clopidogrel Bisulfate 75 mg DAILY PO 09/12/24 10:00 10/02/24 08:47 75 MG Atorvastatin Calcium 80 mg HS PO 09/12/24 22:00 10/01/24 22:28 80 MG Amlodipine Besylate 10 mg DAILY PO 09/18/24 10:00 10/02/24 08:48 10 MG Labetalol HCl 10 mg Q6HPRN PRN IV 09/19/24 16:15 09/20/24 02:57 10 MG Enteral Nutritional Formula 240 ml TIDWM PO 09/23/24 08:00 10/02/24 11:40 240 ML Potassium Chloride 100 ml @ 50 mls/hr Q2H IV 09/23/24 08:00 09/23/24 11:59 UNV Pantoprazole Sodium 40 mg DAILY@0600 PO 09/24/24 06:00 10/02/24 06:25 40 MG Acetaminophen 650 mg Q6HP PRN PO 09/23/24 14:30 10/01/24 14:51 650 MG Cefepime HCl 50 ml @ 12.5 mls/hr Q8HR IV 09/29/24 22:00 UNV Vancomycin HCl 0 ml @ 0 mls/hr UD IV 09/29/24 16:30 Cefepime HCl 50 ml @ 12.5 mls/hr Q8HR IV 09/30/24 06:00 10/02/24 13:27 12.5 MLS/HR Vancomycin HCl 200 ml @ 200 mls/hr Q18H IV 09/29/24 19:00 10/02/24 02:31 200 MLS/HR Insulin Glargine 30 units HS SC 10/01/24 14:15 10/01/24 22:29 30 UNITS Examination Examination: Constitutional: Patient is alert and oriented X3 and trach collar Gen - mild conjuctival pallor, no icterus, no cyanosis, no clubbing, no LAD, 1+ edema in the feet . Skin - Patients skin is warm and dry. HEENT - normocephalic, atraumatic, moist mucous membranes. Neck - full ROM, no LAD, no jvd Pulmonary - B/L air entry present, diffuse rales, no wheezing, no stridor. cardiovascular - regular S1,S2 heard, no added sounds, no murmurs heard. GI - soft abdomen. no hepatospleenomegaly. bowel sounds hypoactive sacrum- ulcer seen , stage 4 ulcer , s/p debridement Neurological - Strength at 5/ X3 ext, Normal tone, Sensation intact, grossly intact cranial nerves laboratory and microbiology Laboratory Tests 10/02/24 06:24 10/01/24 07:05 Test 10/01/24 07:05 Range/Units Serum Glucose 171 H 74-106 mg/dL Microbiology Date/Time Source Procedure Growth Status 09/16/24 16:00 Sputum Gram Stain - Final Complete 09/16/24 16:00 Sputum Respiratory Culture - Final Complete 09/10/24 10:47 Catheter Tip Other Aerobic Culture - Final Complete 09/04/24 10:19 Blood Blood Culture - Final NO GROWTH AFTER 5 DAYS OF INCUBATION. Complete 08/31/24 14:00 Urine - [place] Urine Culture - Final Complete Labs and/or images reviewed: Labs reviewed by me, Image(s) reviewed by me Problem List/Assessment/Plan Problem List/Assessment/Plan Assessment and plan: Neurology Acute ischemic stroke in the rt cerebellar hemisphere and Left frontoparietal Acute metabolic encephalopathy likely due to sepsis/HHS - MRI demonstrated Acute infarction within the right cerebellar hemisphere measuring 3.2 x 0.7 cm. Left frontoparietal increased T2 signal with mild diffusion restriction signal. This could represent subacute infarct or underlying mass/lesion. - on mechanical ventilation - S/P tracheostomy - Patient passed the window period of tPA therapy for ischemic stroke and also he has a recent history of GI bleeding in 1 week. - Continue aspirin 81 mg daily, clopidogrel 75 mg daily and atorvastatin 80 mg at HS - Neurology evaluated the patient and recommended ESTHER for possible identification of the source of the emboli for ischemic stroke. EEG demonstrated borderline normal EEG and no focal lateralized or epileptiform features noted. - Patient underwent ESTHER today and revealed there are no significant Doppler anomalies. No significant tricuspid mitral or aortic insufficiency. Pulmonic insufficiency was not visualized. No pericardial effusion masses or vegetations discernible. No intracardiac masses. No intra-atrial shunt. No VSD or ASD noted. Bubble studies did not reveal intra-atrial shunting or crossover Respiratory Acute hypoxic respiratory failure Probable aspiration pneumonia ARDS - S/P tracheostomy and on trach collar with 6L O2 - chest x-ray shows bilateral patchy opacities - ABG compensated - duonebs q6hr - IV antibiotics Vancomycin and cefepime - sputum culture showed growth of yeast Cardiovascular Shock due to sepsis possibly from aspiration Acute on chronic heart failure with reduced ejection fraction Hypertensive heart disease - echo showed LVEF60% on 09/16 - Amlodipine 10 mg po daily. Infectious disease Septic shock likely due to aspiration pneumonia Infected Sacral ulcer, s/p wound debridement of stage 4 sacral ulcer - on IV antibiotics - Pending new wound culture. - blood culture showed no growth - on Vancomycin and cefepime Nephrology Metabolic alkalosis likely from intractable vomiting, resolved KATE on CKD likely due to be VMN from dehydration - Last dialysis on 09/07/24 and hold off dialysis per nephrology. - urine output improved - Epotein alpha-epbx per protocol GI ?Gastroparesis ?Upper GI bleed - KUB shows nonobstructive bowel gas pattern - IV Protonix daily - 4 units of PRBC given, H&H stable - GI on board - CT with PO contrast showed no obstruction. - FOBT positive Endocrinology Uncontrolled diabetes mellitus with a hyperglycemia Morbid obesity - on insulin sliding scale - lantus 30 unit HS Skin - Stage 4 sacral ulcer - S/P wound debridement . Diet: Consistent carbohydrate diet DVT prophylaxis: Lovenox Goals of care discussed with the patient's sister Sheree for over 27 mins. Full code Advance care planning spent 41 minutes S/P wound debridement of stage 4 sacral ulcer day 2, surgery evaluated the patient and recommended packing of the wound with povidone iodine soaked gauze and wound vac for healing of the wound. Patient refused wound vac because of the pain and also he will not be able to afford the co-pay for the wound vac. Dr. Restrepo recommended inpatient rehab or home health for wound care and continuation of iV antibiotics. Patient's sister wants home health for wound care, continuation of IV antibiotics and physical therapy. Consulted social services director for arrangement of home health and insurance approval. Patient still have leucocytosis and pending culture of wound debridement. Patient is on IV vancomycin per pharmacy and IV cefepime 1 gm Q8hr and will deescalate the antibiotic according to C/S. Extensive discussion with sister regarding his condition and also safe discharge plan. Sister agreed to stay until Saturday and will be following up with Dr. Harris's Suggestion regarding discharge plan. Plan discussed with Plan discussed with: Other (Sister, RN) My Orders My Orders Orders - ELIO SANTOS RESIDENT Procedure Category Date Status Time Discontinue Tele ROHINI 10/01/24 In Process 19:49 Transfer Orders XFER 10/01/24 Transmitted 19:49 Dietary Evaluation Review Recommendations by RD: Protein Supplementation, PPN/TPN Comments: Pt is at high risk of malnutrition due to prolonged vomiting leading to inadequate nutrient intake and hypermetabolic state secondary to acute inflammation. Recommendation: 1) Start PN/TPN per pharmacy 2) If GI is accessible, consider TF Pivot 1.5Cal @ 60ml/hr along with Pro-stat 1 pk TID. Start @ 10ml/hr, increase 10ml/hr Q4H until goal rate is reached. Advance TF rate slowly and gradually to prevent Refeeding syndrome. Water Flush 50ml Q4H if allowed. TF Provision --- TF at goal volume to provide 1440 ml total volume, 2160 kcal (+300 kcal via Pro-stat = 2460 kcal), 135 gm pro (+45 gm via ProStat = 180 gm), 1093 ml H20 (meets 100% est. kcal needs, 100% est. protein needs) 3) Monitor Potassium, Phosphate, Magnesium for Refeeding syndrome 4) Des 1 pk daily For DTI 5) Continue current plan of care Expected Outcomes/Goals: Blood glucose to improve Nutrient intake to meet at least 75% estimated needs FU 2-3 days Food and Nutrition Intake (Mod: <75% est energy req 7days Protein Calorie Malnutrition: Severe JOESHAGGYELIO RESIDENT October 02, 2024 15:26
[2024-10-02] MEDS: ENOXAPARIN SOD 40 MG/0.4 ML SYRINGE SC ONE (17:22)
[2024-10-02] MEDS: LIDOCAINE 1% (LOCAL ANESTH.) PF 5ml SDV ID ONE (17:45)
[2024-10-02] MEDS: SODIUM CHLOR 0.9% PF (SALINE LOCK) 10ML VIAL/SYR IV SCH (21:51)
[2024-10-03 05:00] VITALS: BP 152/90; PULSE 101; RESP 16; TEMP 97.7; O2SAT 98
[2024-10-03 07:36] LABS: Basophils # (auto) 0.1 10 ^3/uL (0-0.2); Basophils % (auto) 0.9 % (0.0-2.0); Eosinophils # (auto) 0.5 10 ^3/uL (0-0.8); Eosinophils % (auto) 3.7 % (0.0-7.0); Hematocrit 27.9 % (41.0-53.0); Lymphocytes # (auto) 1.6 10 ^3/uL (0.4-5.4); Lymphocytes % (auto) 10.9 % (10.0-50.0); Mean Corpuscular Hemoglobin 28.8 pg (28.0-32.0); Mean Corpuscular Hgb Conc. 32.3 g/dL (32.0-36.0); Mean Corpuscular Volume 89.2 fL (80.0-100.0); Monocytes # (auto) 0.9 10 ^3/uL (0-1.3); Monocytes % (auto) 6.1 % (0.0-12.0); Neutrophils # (auto) 11.5 10 ^3/uL (1.6-8.6); Neutrophils % (auto) 78.4 % (37.0-80.0); Nucleated Red Blood Cells % 0.1 %; Platelet Count (auto) 319 10^3/uL (140-450); Red Blood Cells 3.13 10^6/uL (4.5-5.90); Red Cell Distribution Width 15.5 % (11.8-14.3); White Blood Cell 14.6 10^3/uL (4.4-10.8)
[2024-10-03 07:43] LABS: Sodium 142 mmol/L (136-145)
[2024-10-03 07:44] LABS: Anion Gap 10 (5-15)
[2024-10-03 07:49] LABS: BUN/Creatinine Ratio 14.3 (10.0-20.0); Blood Urea Nitrogen 11 mg/dL (9-23)
[2024-10-03 07:51] LABS: Calcium 7.3 mg/dL (8.7-10.4); Carbon Dioxide 15 mmol/L (20-31); Chloride 117 mmol/L (98-107); Glucose 158 mg/dL (74-106); Potassium 3.1 mmol/L (3.5-5.1)
[2024-10-03 09:00] VITALS: BP 149/97; PULSE 109; RESP 18; TEMP 98.1; O2SAT 99
[2024-10-03] MEDS: ENOXAPARIN SOD 40 MG/0.4 ML SYRINGE SC SCH (10:08)
--- NOTE | 2024-10-03 10:34 | DVHPN2 ---
Reviewed: Care Plan, H&P, Labs, Medications, Previous Orders, Radiology, Other (Consultations) Changes from previous H/P or p: No Changes General: Per HPI Objective Vitals Vital Signs Date Time Temp Pulse Resp B/P (MAP) Pulse Ox O2 Delivery O2 Flow Rate FiO2 10/03/24 10:09 149/97 10/03/24 08:00 Room Air* 0 21 10/03/24 05:00 97.7 101 16 98 97.7 Intake/Output Intake and Output 10/03/24 07:00 Intake Total 2030 ml Output Total 2702 ml Balance -672 ml Intake Oral 1780 ml IV Total 250 ml Output Urine Total 2700 ml Stool Total 2 ml # Bowel Movements 1 General Appearance: Alert, Oriented X3, Other (Intubated and sedated) HEENT: Atraumatic Lungs: Other (Mechanical ventilation sounds) Cardiovascular: Normal S1, Normal S2, Other (Tachycardia) Abdomen: Normal bowel sounds, Soft Genitourinary: Other (Friedman's) Neuro: Other (Intubated and sedated) Psych/Mental Status: Other (Intubated and sedated) Medications Current Medications Medications Dose Ordered Sig/Nikki Route Start Time Stop Time Status Last Admin Dose Admin Diagnostic Test (Pha) 1 strip ACHS 08/19/24 17:00 Cancel Norepinephrine Bitartrate 250 ml @ 3.75 mls/hr Q24H IV 08/19/24 17:15 Cancel Epoetin Aquilino-epbx 10,000 unit TUTHSA@2100 SC 08/26/24 21:00 09/24/24 21:01 10,000 UNIT Dextrose 50 ml UD PRN IV 09/03/24 21:00 Insulin Human Regular AC SC 09/09/24 07:00 10/03/24 06:17 6 UNITS Diagnostic Test (Pha) 1 strip ACHS 09/09/24 07:00 10/03/24 06:17 1 STRIP Aspirin 81 mg DAILY PO 09/12/24 10:00 10/03/24 10:08 81 MG Clopidogrel Bisulfate 75 mg DAILY PO 09/12/24 10:00 10/03/24 10:09 75 MG Atorvastatin Calcium 80 mg HS PO 09/12/24 22:00 10/02/24 21:50 80 MG Amlodipine Besylate 10 mg DAILY PO 09/18/24 10:00 10/03/24 10:09 10 MG Labetalol HCl 10 mg Q6HPRN PRN IV 09/19/24 16:15 09/20/24 02:57 10 MG Enteral Nutritional Formula 240 ml TIDWM PO 09/23/24 08:00 10/03/24 08:29 240 ML Potassium Chloride 100 ml @ 50 mls/hr Q2H IV 09/23/24 08:00 09/23/24 11:59 UNV Pantoprazole Sodium 40 mg DAILY@0600 PO 09/24/24 06:00 10/03/24 06:13 40 MG Acetaminophen 650 mg Q6HP PRN PO 09/23/24 14:30 10/03/24 10:09 650 MG Cefepime HCl 50 ml @ 12.5 mls/hr Q8HR IV 09/29/24 22:00 UNV Vancomycin HCl 0 ml @ 0 mls/hr UD IV 09/29/24 16:30 Cefepime HCl 50 ml @ 12.5 mls/hr Q8HR IV 09/30/24 06:00 10/03/24 06:13 12.5 MLS/HR Vancomycin HCl 200 ml @ 200 mls/hr Q18H IV 09/29/24 19:00 10/02/24 17:56 200 MLS/HR Insulin Glargine 30 units HS SC 10/01/24 14:15 10/02/24 21:48 30 UNITS Enoxaparin Sodium 40 mg DAILY SC 10/03/24 10:00 10/03/24 10:08 40 MG Sodium Chloride 10 ml QSHIFT@10,22 IV 10/02/24 22:00 10/03/24 10:07 10 ML Laboratory Results Laboratory Tests 10/03/24 05:51 Chemistry Test 10/03/24 05:51 Calcium Level 7.3 mg/dL (8.7-10.4) L Urinalysis Test 08/19/24 11:25 09/21/24 14:40 Urine Renal Epithelial Cells Few /hpf (None Seen) Urine Amorphous Crystals Few /hpf (None Seen) Urine Creatinine 77.13 mg/dL (30.0-125.0) Urine Sodium 15 mmol/L (40-220) L Urine Color Light-yellow (Yellow) Urine Clarity Turbid (Clear) H Urine pH 5.5 (5.0-9.0) Urine Specific [place] 1.020 (1.001-1.035) Urine Protein 1+ (Negative) H Urine Ketones Negative (Negative) Urine Blood 1+ /uL (Negative) H Urine Nitrite Negative (Negative) Urine Bilirubin Negative (Negative) Urine Urobilinogen Normal mg/dL (Negative) Urine Leukocyte Esterase 1+ /uL (Negative) Urine RBC 19 /hpf (0 - 3) Urine Microscopic WBC 14 /HPF (0-3) H Urine Squamous Epithelial Cells Few /hpf (<5) Urine Bacteria Few /hpf (None Seen) H Urine Hyaline Casts Few /lpf (0 - 2) Urine Mucus Few (None Seen) Urine Sperm Present /hpf (None Seen) Urine Glucose 1+ mg/dL (Normal) H Microbiology Microbiology Date/Time Source Procedure Growth Status 09/16/24 16:00 Sputum Gram Stain - Final Complete 09/16/24 16:00 Sputum Respiratory Culture - Final Complete 09/10/24 10:47 Catheter Tip Other Aerobic Culture - Final Complete 09/04/24 10:19 Blood Blood Culture - Final NO GROWTH AFTER 5 DAYS OF INCUBATION. Complete 08/31/24 14:00 Urine - [place] Urine Culture - Final Complete Labs and/or images reviewed: Labs reviewed by me, Image(s) reviewed by me Assessment/Plan Assessment/Plan Impression: -acute hypoxic respiratory failure with mechanical ventilation -probable aspiration pneumonitis/pneumonia -sepsis with shock -obesity -rule out GI bleed -diabetes mellitus with severe hyperglycemia -hyponatremia -hypochloremia -hypokalemia -acute kidney injury,ATN 08/22/2024: pt to continue with vent management nephrology to evaluate for dialysis if needed 08/23/2024 daily vent weaning Neurology Acute ischemic stroke in the rt cerebellar hemisphere and Left frontoparietal Acute metabolic encephalopathy likely due to sepsis/HHS - MRI demonstrated Acute infarction within the right cerebellar hemisphere measuring 3.2 x 0.7 cm. Left frontoparietal increased T2 signal with mild diffusion restriction signal. This could represent subacute infarct or underlying mass/lesion. - on mechanical ventilation - S/P tracheostomy - Patient passed the window period of tPA therapy for ischemic stroke and also he has a recent history of GI bleeding in 1 week. - Continue aspirin 81 mg daily, clopidogrel 75 mg daily and atorvastatin 80 mg at HS - Neurology evaluated the patient and recommended ESTHER for possible identification of the source of the emboli for ischemic stroke. EEG demonstrated borderline normal EEG and no focal lateralized or epileptiform features noted. - Patient underwent ESTHER today and revealed there are no significant Doppler anomalies. No significant tricuspid mitral or aortic insufficiency. Pulmonic insufficiency was not visualized. No pericardial effusion masses or vegetations discernible. No intracardiac masses. No intra-atrial shunt. No VSD or ASD noted. Bubble studies did not reveal intra-atrial shunting or crossover Respiratory Acute hypoxic respiratory failure Probable aspiration pneumonia ARDS - S/P tracheostomy and on trach collar with 6L O2 - chest x-ray shows bilateral patchy opacities - ABG compensated - duonebs q6hr - IV antibiotics Vancomycin and cefepime - sputum culture showed growth of yeast Cardiovascular Shock due to sepsis possibly from aspiration Acute on chronic heart failure with reduced ejection fraction Hypertensive heart disease - echo showed LVEF60% on 09/16 - Amlodipine 10 mg po daily. Infectious disease Septic shock likely due to aspiration pneumonia Infected Sacral ulcer, s/p wound debridement of stage 4 sacral ulcer - on IV antibiotics - Pending new wound culture. - blood culture showed no growth - on Vancomycin and cefepime Nephrology Metabolic alkalosis likely from intractable vomiting, resolved KATE on CKD likely due to be VMN from dehydration - Last dialysis on 09/07/24 and hold off dialysis per nephrology. - urine output improved - Epotein alpha-epbx per protocol GI ?Gastroparesis ?Upper GI bleed - KUB shows nonobstructive bowel gas pattern - IV Protonix daily - 4 units of PRBC given, H&H stable - GI on board - CT with PO contrast showed no obstruction. - FOBT positive Endocrinology Uncontrolled diabetes mellitus with a hyperglycemia Morbid obesity - on insulin sliding scale - lantus 30 unit HS Skin - Stage 4 sacral ulcer - S/P wound debridement . Diet: Consistent carbohydrate diet DVT prophylaxis: Lovenox Goals of care discussed with the patient's sister Sheree for over 27 mins. Full code Advance care planning spent 41 minutes S/P wound debridement of stage 4 sacral ulcer day 2, surgery evaluated the patient and recommended packing of the wound with povidone iodine soaked gauze and wound vac for healing of the wound. Patient refused wound vac because of the pain and also he will not be able to afford the co-pay for the wound vac. Dr. Restrepo recommended inpatient rehab or home health for wound care and continuation of iV antibiotics. Patient's sister wants home health for wound care, continuation of IV antibiotics and physical therapy. Consulted social welfare administrator for arrangement of home health and insurance approval. Patient still have leucocytosis and pending culture of wound debridement. Patient is on IV vancomycin per pharmacy and IV cefepime 1 gm Q8hr and will deescalate the antibiotic according to C/S. Extensive discussion with sister regarding his condition and also safe discharge plan. Sister agreed to stay until Saturday and will be following up with Dr. Harris's Suggestion regarding discharge plan. 10/03/2024 discussed with pt at bedside. pt appears to be difficulty to please. he stated that he wanted to be discharged immediately, despite my effort to explain to him that he needs to have HH set up and that his sister is agreeable to take him home on Saturday. He stated that he does not like being here and that everything happened to him is the result of being in the hospital. I told him that i may need a wound vac and his response was that he would agree with wound vac and wanted to be discharged immediately i was informed by nursing later that pt tried to get out of bed and fell but he refused to have imaging done Plan discussed with: Patient Date of Service: October 03, 2024 Billing Provider: CHANDLER HYATT [employer] COORDINATOR Common Visit Codes: [id number] INP/OBS CARE(HIGH) RONN HYATT DO October 03, 2024 10:34
[2024-10-03 11:45] VITALS: BP 156/97; PULSE 113; RESP 16; TEMP 97.5; O2SAT 98
[2024-10-03] MEDS: LOPERAMIDE HCL 2 MG CAP/TAB PO ONE (11:48)
--- NOTE | 2024-10-03 15:52 | DVH ---
CLINICAL INDICATION: Fall, trauma, pain TECHNIQUE: XY L TIB FIB XRAY Comparison: None FINDINGS/IMPRESSION: : There is no evidence of acute fracture or dislocation. Pretibial soft-tissue swelling.
--- NOTE | 2024-10-03 16:11 | DVH ---
EXAM: CT HEAD WITHOUT CONTRAST INDICATION: S/P FALL TECHNIQUE: CT of the head without intravenous contrast. Radiation Dose Information: CT Dose: CTDI volume is 69.2 mGy. Dose-length product is 1259.5 mGy*cm The dose indicators for CT are the volume Computed Tomography (CT) Dose Index (CTDIvol) and the Dose Length Product (DLP), and are measured in units of mGy and mGy-cm, respectively. These indicators are not patient dose, but values generated from the CT scanner acquisition factors. The report includes radiation exposure data for exposures received during this examination. COMPARISON: CT HEAD WITHOUT CONTRAST on DOS: 09/11/24 FINDINGS: There is no evidence of acute intracranial hemorrhage, extra-axial collection, mass effect, midline s hift, herniation or hydrocephalus. Area of decreased attenuation in the left parietal lobe unchanged from 09/11/2024. The ventricles, sulci and cisterns are age appropriate. The guerin-white differentiation is intact. Patchy periventricular and subcortical white matter hypoattenuation is nonspecific but may be related to small vessel ischemic disease. The visualized paranasal sinuses and mastoid air cells are clear. The surrounding soft tissues and osseous structures are unremarkable. IMPRESSION: 1. No acute intracranial hemorrhage. 2. Area of ischemia in the mid left parietal lobe unchanged from 09/11/2024.
[2024-10-03 16:22] VITALS: BP 140/88; PULSE 109; RESP 16; TEMP 97.6; O2SAT 98
[2024-10-03 20:00] VITALS: RESP 18; O2SAT 95
[2024-10-03 21:00] VITALS: BP 125/83; PULSE 110; RESP 18; TEMP 98.1; O2SAT 98
[2024-10-04] VITALS (7 sets, daily range): BP systolic 135–158; BP diastolic 77–99; PULSE 106–117; RESP 18–20; TEMP 97.3–98.4; O2SAT 98–100
[2024-10-04 06:15] LABS: Basophils # (auto) 0.2 10 ^3/uL (0-0.2); Basophils % (auto) 0.9 % (0.0-2.0); Eosinophils # (auto) 0.7 10 ^3/uL (0-0.8); Eosinophils % (auto) 3.1 % (0.0-7.0); Hematocrit 34.8 % (41.0-53.0); Hemoglobin 11.7 g/dL (13.5-17.5); Lymphocytes # (auto) 2.6 10 ^3/uL (0.4-5.4); Lymphocytes % (auto) 11.9 % (10.0-50.0); Mean Corpuscular Hgb Conc. 33.5 g/dL (32.0-36.0); Mean Corpuscular Volume 86.6 fL (80.0-100.0); Monocytes # (auto) 1.2 10 ^3/uL (0-1.3); Monocytes % (auto) 5.3 % (0.0-12.0); Neutrophils # (auto) 17.1 10 ^3/uL (1.6-8.6); Neutrophils % (auto) 78.8 % (37.0-80.0); Nucleated Red Blood Cells % 0.1 %; Platelet Count (auto) 459 10^3/uL (140-450); Red Blood Cells 4.02 10^6/uL (4.5-5.90); Red Cell Distribution Width 15.6 % (11.8-14.3); White Blood Cell 21.7 10^3/uL (4.4-10.8)
[2024-10-04] MEDS: VANCOMYCIN 1GM/200ML PM 200 ML IV SCH (10:07)
--- NOTE | 2024-10-04 22:52 | DVHPN2 ---
Reviewed: Care Plan, H&P, Labs, Medications, Previous Orders, Radiology, Other (Consultations) Changes from previous H/P or p: No Changes General: Per HPI Objective Vitals Vital Signs Date Time Temp Pulse Resp B/P (MAP) Pulse Ox O2 Delivery O2 Flow Rate FiO2 10/04/24 21:00 98.4 106 18 140/84 (102) 98 98.4 10/04/24 20:00 Room Air* 0 21 Intake/Output Intake and Output 10/04/24 07:00 Intake Total 2300 ml Output Total 2950 ml Balance -650 ml Intake Oral 2100 ml IV Total 200 ml Output Urine Total 2950 ml # Voids 3 # Bowel Movements 5 General Appearance: Alert, Oriented X3, Other (Intubated and sedated) HEENT: Atraumatic Lungs: Other (Mechanical ventilation sounds) Cardiovascular: Normal S1, Normal S2, Other (Tachycardia) Abdomen: Normal bowel sounds, Soft Genitourinary: Other (Friedman's) Neuro: Other (Intubated and sedated) Psych/Mental Status: Other (Intubated and sedated) Medications Current Medications Medications Dose Ordered Sig/Nikki Route Start Time Stop Time Status Last Admin Dose Admin Diagnostic Test (Pha) 1 strip ACHS 08/19/24 17:00 Cancel Norepinephrine Bitartrate 250 ml @ 3.75 mls/hr Q24H IV 08/19/24 17:15 Cancel Epoetin Aqiulino-epbx 10,000 unit TUTHSA@2100 OK 08/26/24 21:00 10/03/24 21:40 10,000 UNIT Insulin Human Regular AC OK 09/09/24 07:00 10/04/24 17:32 3 UNITS Diagnostic Test (Pha) 1 strip ACHS 09/09/24 07:00 10/04/24 17:07 1 STRIP Aspirin 81 mg DAILY PO 09/12/24 10:00 10/04/24 10:07 81 MG Clopidogrel Bisulfate 75 mg DAILY PO 09/12/24 10:00 10/04/24 10:07 75 MG Atorvastatin Calcium 80 mg HS PO 09/12/24 22:00 10/03/24 21:40 80 MG Amlodipine Besylate 10 mg DAILY PO 09/18/24 10:00 10/04/24 10:07 10 MG Labetalol HCl 10 mg Q6HPRN PRN IV 09/19/24 16:15 09/20/24 02:57 10 MG Enteral Nutritional Formula 240 ml TIDWM PO 09/23/24 08:00 10/04/24 17:34 240 ML Potassium Chloride 100 ml @ 50 mls/hr Q2H IV 09/23/24 08:00 09/23/24 11:59 UNV Pantoprazole Sodium 40 mg DAILY@0600 PO 09/24/24 06:00 10/04/24 06:19 40 MG Acetaminophen 650 mg Q6HP PRN PO 09/23/24 14:30 10/04/24 17:07 650 MG Cefepime HCl 50 ml @ 12.5 mls/hr Q8HR IV 09/29/24 22:00 UNV Vancomycin HCl 0 ml @ 0 mls/hr UD IV 09/29/24 16:30 Cefepime HCl 50 ml @ 12.5 mls/hr Q8HR IV 09/30/24 06:00 10/04/24 14:00 12.5 MLS/HR Insulin Glargine 30 units HS SC 10/01/24 14:15 10/03/24 21:48 30 UNITS Enoxaparin Sodium 40 mg DAILY SC 10/03/24 10:00 10/04/24 10:08 40 MG Sodium Chloride 10 ml QSHIFT@10,22 IV 10/02/24 22:00 10/04/24 10:08 10 ML Vancomycin HCl 200 ml @ 200 mls/hr Q18H IV 10/04/24 10:00 10/04/24 10:07 200 MLS/HR Laboratory Results Laboratory Tests 10/03/24 05:51 10/04/24 05:23 Urinalysis Test 08/19/24 11:25 09/21/24 14:40 Urine Renal Epithelial Cells Few /hpf (None Seen) Urine Amorphous Crystals Few /hpf (None Seen) Urine Creatinine 77.13 mg/dL (30.0-125.0) Urine Sodium 15 mmol/L (40-220) L Urine Color Light-yellow (Yellow) Urine Clarity Turbid (Clear) H Urine pH 5.5 (5.0-9.0) Urine Specific [place] 1.020 (1.001-1.035) Urine Protein 1+ (Negative) H Urine Ketones Negative (Negative) Urine Blood 1+ /uL (Negative) H Urine Nitrite Negative (Negative) Urine Bilirubin Negative (Negative) Urine Urobilinogen Normal mg/dL (Negative) Urine Leukocyte Esterase 1+ /uL (Negative) Urine RBC 19 /hpf (0 - 3) Urine Microscopic WBC 14 /HPF (0-3) H Urine Squamous Epithelial Cells Few /hpf (<5) Urine Bacteria Few /hpf (None Seen) H Urine Hyaline Casts Few /lpf (0 - 2) Urine Mucus Few (None Seen) Urine Sperm Present /hpf (None Seen) Urine Glucose 1+ mg/dL (Normal) H Microbiology Microbiology Date/Time Source Procedure Growth Status 09/16/24 16:00 Sputum Gram Stain - Final Complete 09/16/24 16:00 Sputum Respiratory Culture - Final Complete 09/10/24 10:47 Catheter Tip Other Aerobic Culture - Final Complete 09/04/24 10:19 Blood Blood Culture - Final NO GROWTH AFTER 5 DAYS OF INCUBATION. Complete 08/31/24 14:00 Urine - [place] Urine Culture - Final Complete Assessment/Plan Assessment/Plan Impression: -acute hypoxic respiratory failure with mechanical ventilation -probable aspiration pneumonitis/pneumonia -sepsis with shock -obesity -rule out GI bleed -diabetes mellitus with severe hyperglycemia -hyponatremia -hypochloremia -hypokalemia -acute kidney injury,ATN 08/22/2024: pt to continue with vent management nephrology to evaluate for dialysis if needed 08/23/2024 daily vent weaning Neurology Acute ischemic stroke in the rt cerebellar hemisphere and Left frontoparietal Acute metabolic encephalopathy likely due to sepsis/HHS - MRI demonstrated Acute infarction within the right cerebellar hemisphere measuring 3.2 x 0.7 cm. Left frontoparietal increased T2 signal with mild diffusion restriction signal. This could represent subacute infarct or underlying mass/lesion. - on mechanical ventilation - S/P tracheostomy - Patient passed the window period of tPA therapy for ischemic stroke and also he has a recent history of GI bleeding in 1 week. - Continue aspirin 81 mg daily, clopidogrel 75 mg daily and atorvastatin 80 mg at HS - Neurology evaluated the patient and recommended ESTHER for possible identification of the source of the emboli for ischemic stroke. EEG demonstrated borderline normal EEG and no focal lateralized or epileptiform features noted. - Patient underwent ESTHER today and revealed there are no significant Doppler anomalies. No significant tricuspid mitral or aortic insufficiency. Pulmonic insufficiency was not visualized. No pericardial effusion masses or vegetations discernible. No intracardiac masses. No intra-atrial shunt. No VSD or ASD noted. Bubble studies did not reveal intra-atrial shunting or crossover Respiratory Acute hypoxic respiratory failure Probable aspiration pneumonia ARDS - S/P tracheostomy and on trach collar with 6L O2 - chest x-ray shows bilateral patchy opacities - ABG compensated - duonebs q6hr - IV antibiotics Vancomycin and cefepime - sputum culture showed growth of yeast Cardiovascular Shock due to sepsis possibly from aspiration Acute on chronic heart failure with reduced ejection fraction Hypertensive heart disease - echo showed LVEF60% on 09/16 - Amlodipine 10 mg po daily. Infectious disease Septic shock likely due to aspiration pneumonia Infected Sacral ulcer, s/p wound debridement of stage 4 sacral ulcer - on IV antibiotics - Pending new wound culture. - blood culture showed no growth - on Vancomycin and cefepime Nephrology Metabolic alkalosis likely from intractable vomiting, resolved KATE on CKD likely due to be VMN from dehydration - Last dialysis on 09/07/24 and hold off dialysis per nephrology. - urine output improved - Epotein alpha-epbx per protocol GI ?Gastroparesis ?Upper GI bleed - KUB shows nonobstructive bowel gas pattern - IV Protonix daily - 4 units of PRBC given, H&H stable - GI on board - CT with PO contrast showed no obstruction. - FOBT positive Endocrinology Uncontrolled diabetes mellitus with a hyperglycemia Morbid obesity - on insulin sliding scale - lantus 30 unit HS Skin - Stage 4 sacral ulcer - S/P wound debridement . Diet: Consistent carbohydrate diet DVT prophylaxis: Lovenox Goals of care discussed with the patient's sister Sheree for over 27 mins. Full code Advance care planning spent 41 minutes S/P wound debridement of stage 4 sacral ulcer day 2, surgery evaluated the patient and recommended packing of the wound with povidone iodine soaked gauze and wound vac for healing of the wound. Patient refused wound vac because of the pain and also he will not be able to afford the co-pay for the wound vac. Dr. Restrepo recommended inpatient rehab or home health for wound care and continuation of iV antibiotics. Patient's sister wants home health for wound care, continuation of IV antibiotics and physical therapy. Consulted geriatric social worker for arrangement of home health and insurance approval. Patient still have leucocytosis and pending culture of wound debridement. Patient is on IV vancomycin per pharmacy and IV cefepime 1 gm Q8hr and will deescalate the antibiotic according to C/S. Extensive discussion with sister regarding his condition and also safe discharge plan. Sister agreed to stay until Saturday and will be following up with Dr. Harris's Suggestion regarding discharge plan. 10/03/2024 discussed with pt at bedside. pt appears to be difficulty to please. he stated that he wanted to be discharged immediately, despite my effort to explain to him that he needs to have HH set up and that his sister is agreeable to take him home on Saturday. He stated that he does not like being here and that everything happened to him is the result of being in the hospital. I told him that i may need a wound vac and his response was that he would agree with wound vac and wanted to be discharged immediately i was informed by nursing later that pt tried to get out of bed and fell but he refused to have imaging done 10/04/2024 pt requested to speak with me further after my round he stated that he wanted to have the wound vac placed and dismiss the current nurse, Uriel. he stated that he just does not 'click' with him (Uriel). when i spoke with the nurse, he stated that the pt is just not happy to be here and wanted everything done right away and became upset when he (Uriel) explained to the pt that wound care is ordered and confirmed but it would take some time. pt is very accusatory to me and about nursing and the hospital he stated that he does not care about his sister's decision and would like to be discharge i stated that for a safe discharge, he needs to have HH set up first. Plan discussed with: Patient My Orders Orders - RONN HYATT DO Procedure Category Date Status Time * President/[employer] CONS 10/04/24 Transmitted Consult Date of Service: Oct 04, 2024 Billing Provider: CHANDLER HYATT [employer] INSTALLATION MANAGER Common Visit Codes: [id number] INP/OBS CARE(HIGH) RONN HYATT DO Oct 04, 2024 22:52
[2024-10-05 01:00] VITALS: BP 148/99; PULSE 106; RESP 18; TEMP 98.6; O2SAT 98
[2024-10-05 05:00] VITALS: BP 144/95; PULSE 107; RESP 18; TEMP 98.1; O2SAT 98
[2024-10-05 07:38] LABS: Basophils # (auto) 0.2 10 ^3/uL (0-0.2); Basophils % (auto) 0.9 % (0.0-2.0); Eosinophils # (auto) 0.5 10 ^3/uL (0-0.8); Eosinophils % (auto) 2.4 % (0.0-7.0); Hematocrit 34.2 % (41.0-53.0); Hemoglobin 11.4 g/dL (13.5-17.5); Lymphocytes # (auto) 2.5 10 ^3/uL (0.4-5.4); Lymphocytes % (auto) 11.3 % (10.0-50.0); Mean Corpuscular Hemoglobin 28.5 pg (28.0-32.0); Mean Corpuscular Hgb Conc. 33.2 g/dL (32.0-36.0); Mean Corpuscular Volume 85.6 fL (80.0-100.0); Monocytes # (auto) 1.1 10 ^3/uL (0-1.3); Neutrophils # (auto) 17.9 10 ^3/uL (1.6-8.6); Neutrophils % (auto) 80.4 % (37.0-80.0); Platelet Count (auto) 456 10^3/uL (140-450); Red Blood Cells 3.99 10^6/uL (4.5-5.90); Red Cell Distribution Width 15.6 % (11.8-14.3); White Blood Cell 22.3 10^3/uL (4.4-10.8)
[2024-10-05 08:00] VITALS: PULSE 107; RESP 16; O2SAT 100
[2024-10-05 08:32] VITALS: BP 142/84; PULSE 107; RESP 16; TEMP 97.8; O2SAT 100
--- NOTE | 2024-10-05 10:58 | DVHPN2 ---
Progress Note Date Seen: Oct 05, 2024 Has the PT tested + for MRSA If YES, has PT been informed?: No Medical Necessity Reason Pt with a Central, PICC or Fol: No Subjective Patient reports: No new complaints Review of Systems: HEENT:Normal, CVS:Normal, RESPIRATORY:Normal, GI:Normal, :Normal, MSK:Normal, NEURO:Normal Objective vital signs Vital Sign Date Time Temp Pulse Resp B/P (MAP) Pulse Ox O2 Delivery O2 Flow Rate FiO2 10/05/24 08:32 97.8 107 16 142/84 (103) 100 97.8 10/04/24 20:00 Room Air* 0 21 Total Intake and Output 10/04/24 10/04/24 10/05/24 15:00 23:00 07:00 Intake Total 412.5 ml 225.0 ml 1050 ml Output Total 1490 ml 500 ml Balance 412.5 ml -1265.0 ml 550 ml medications Current Medications Medications Dose Ordered Sig/Nikki Route Start Time Stop Time Status Last Admin Dose Admin Diagnostic Test (Pha) 1 strip ACHS 08/19/24 17:00 Cancel Norepinephrine Bitartrate 250 ml @ 3.75 mls/hr Q24H IV 08/19/24 17:15 Cancel Epoetin Aquilino-epbx 10,000 unit TUTHSA@2100 MA 08/26/24 21:00 10/03/24 21:40 10,000 UNIT Insulin Human Regular AC MA 09/09/24 07:00 10/05/24 06:24 3 UNITS Diagnostic Test (Pha) 1 strip ACHS 09/09/24 07:00 10/05/24 06:21 1 STRIP Aspirin 81 mg DAILY PO 09/12/24 10:00 10/04/24 10:07 81 MG Clopidogrel Bisulfate 75 mg DAILY PO 09/12/24 10:00 10/04/24 10:07 75 MG Atorvastatin Calcium 80 mg HS PO 09/12/24 22:00 10/04/24 23:02 80 MG Amlodipine Besylate 10 mg DAILY PO 09/18/24 10:00 10/04/24 10:07 10 MG Labetalol HCl 10 mg Q6HPRN PRN IV 09/19/24 16:15 09/20/24 02:57 10 MG Enteral Nutritional Formula 240 ml TIDWM PO 09/23/24 08:00 10/05/24 08:00 240 ML Potassium Chloride 100 ml @ 50 mls/hr Q2H IV 09/23/24 08:00 09/23/24 11:59 UNV Pantoprazole Sodium 40 mg DAILY@0600 PO 09/24/24 06:00 10/04/24 06:19 40 MG Acetaminophen 650 mg Q6HP PRN PO 09/23/24 14:30 10/04/24 17:07 650 MG Cefepime HCl 50 ml @ 12.5 mls/hr Q8HR IV 09/29/24 22:00 UNV Vancomycin HCl 0 ml @ 0 mls/hr UD IV 09/29/24 16:30 Cefepime HCl 50 ml @ 12.5 mls/hr Q8HR IV 09/30/24 06:00 10/05/24 06:04 12.5 MLS/HR Insulin Glargine 30 units HS SC 10/01/24 14:15 10/04/24 23:01 30 UNITS Enoxaparin Sodium 40 mg DAILY SC 10/03/24 10:00 10/04/24 10:08 40 MG Sodium Chloride 10 ml QSHIFT@10,22 IV 10/02/24 22:00 10/04/24 22:44 10 ML Vancomycin HCl 200 ml @ 200 mls/hr Q18H IV 10/04/24 10:00 10/05/24 03:41 200 MLS/HR Examination: GENERAL:Normal, HEENT:Normal, NECK:Normal, LUNGS:Normal, CVS:Normal, ABDOMEN:Normal, MSK:Normal, MSK:Abnormal (decub ulcer stage 4), SKIN:Normal, NEURO:Normal, :Normal laboratory and microbiology Laboratory Tests 10/05/24 06:07 10/03/24 05:51 Test 10/03/24 05:51 Range/Units Serum Glucose 158 H 74-106 mg/dL Microbiology Date/Time Source Procedure Growth Status 09/16/24 16:00 Sputum Gram Stain - Final Complete 09/16/24 16:00 Sputum Respiratory Culture - Final Complete 09/10/24 10:47 Catheter Tip Other Aerobic Culture - Final Complete 09/04/24 10:19 Blood Blood Culture - Final NO GROWTH AFTER 5 DAYS OF INCUBATION. Complete 08/31/24 14:00 Urine - Friedman [place] Urine Culture - Final Complete Problem List/Assessment/Plan Problem List/Assessment/Plan Assessment and plan: Neurology Acute ischemic stroke in the rt cerebellar hemisphere and Left frontoparietal Acute metabolic encephalopathy likely due to sepsis/HHS - MRI demonstrated Acute infarction within the right cerebellar hemisphere measuring 3.2 x 0.7 cm. Left frontoparietal increased T2 signal with mild diffusion restriction signal. This could represent subacute infarct or underlying mass/lesion. - on mechanical ventilation - S/P tracheostomy - Patient passed the window period of tPA therapy for ischemic stroke and also he has a recent history of GI bleeding in 1 week. - Continue aspirin 81 mg daily, clopidogrel 75 mg daily and atorvastatin 80 mg at HS - Neurology evaluated the patient and recommended ESTHER for possible identification of the source of the emboli for ischemic stroke. EEG demonstrated borderline normal EEG and no focal lateralized or epileptiform features noted. - Patient underwent ESTHER today and revealed there are no significant Doppler anomalies. No significant tricuspid mitral or aortic insufficiency. Pulmonic insufficiency was not visualized. No pericardial effusion masses or vegetations discernible. No intracardiac masses. No intra-atrial shunt. No VSD or ASD noted. Bubble studies did not reveal intra-atrial shunting or crossover Respiratory Acute hypoxic respiratory failure Probable aspiration pneumonia ARDS - S/P tracheostomy, trach removed - chest x-ray shows bilateral patchy opacities - ABG compensated - duonebs q6hr - IV antibiotics Vancomycin and cefepime - sputum culture showed growth of yeast Cardiovascular Shock due to sepsis possibly from aspiration Acute on chronic heart failure with reduced ejection fraction Hypertensive heart disease - echo showed LVEF60% on 09/16 - Amlodipine 10 mg po daily. Infectious disease Septic shock likely due to aspiration pneumonia Infected Sacral ulcer, - on IV antibiotics - culture from sacral ulcer growing enterococcus - blood culture showed no growth - on Vancomycin and cefepime Nephrology Metabolic alkalosis likely from intractable vomiting, resolved KATE on CKD likely due to be VMN from dehydration - Last dialysis on 09/07/24 and hold off dialysis per nephrology. - urine output improved - Epotein alpha-epbx per protocol GI ?Gastroparesis ?Upper GI bleed - KUB shows nonobstructive bowel gas pattern - IV Protonix daily - 4 units of PRBC given, H&H stable - GI on board - CT with PO contrast showed no obstruction. - FOBT positive - Patient passed the swallow evaluation today and on pureed diet Endocrinology Uncontrolled diabetes mellitus with a hyperglycemia Morbid obesity - on insulin sliding scale - lantus 20 unit HS Skin -stage 4 decub ulcer s/p debridement with sepsis Diet: Pureed diet DVT prophylaxis: heparin Left upper arm midline placed on 09/18/24 Friedman's catheter placed on 09/09/24 Goals of care discussed with the patient's sister Sheree for over 27 mins. Full code long discussion with pt and sister Sheree- explained that pt is septic and will need likely mri of pelvis to check for osteo. explained risk of and debility from sepsis. at this point they wish to go AMA Critical care time spent 61 minutes Plan discussed with: Patient, Other (sister Sheree) My Orders My Orders Orders - ARMANDO FLOWERS MD Procedure Category Date Status Time Complete Blood Count LAB 10/06/24 Verified 06:00 Comprehensive LAB 10/06/24 Verified Metabolic Panel 06:00 Dietary Evaluation Review Recommendations by RD: Protein Supplementation, PPN/TPN Comments: Pt is at high risk of malnutrition due to prolonged vomiting leading to inadequate nutrient intake and hypermetabolic state secondary to acute inflammation. Recommendation: 1) Start PN/TPN per pharmacy 2) If GI is accessible, consider TF Pivot 1.5Cal @ 60ml/hr along with Pro-stat 1 pk TID. Start @ 10ml/hr, increase 10ml/hr Q4H until goal rate is reached. Advance TF rate slowly and gradually to prevent Refeeding syndrome. Water Flush 50ml Q4H if allowed. TF Provision --- TF at goal volume to provide 1440 ml total volume, 2160 kcal (+300 kcal via Pro-stat = 2460 kcal), 135 gm pro (+45 gm via ProStat = 180 gm), 1093 ml H20 (meets 100% est. kcal needs, 100% est. protein needs) 3) Monitor Potassium, Phosphate, Magnesium for Refeeding syndrome 4) Des 1 pk daily For DTI 5) Continue current plan of care Expected Outcomes/Goals: Blood glucose to improve Nutrient intake to meet at least 75% estimated needs FU 2-3 days Food and Nutrition Intake (Mod: <75% est energy req 7days Protein Calorie Malnutrition: Severe Date of Service: Oct 05, 2024 Billing Provider: ARMANDO FLOWERS MD Common Visit Codes: 31196-[id number] CARE 30-74 MIN ARMANDO FLOWERS MD Oct 05, 2024 10:58
--- NOTE | 2024-10-05 11:38 | DVHDS ---
DATE OF DISCHARGE: 10/05/2024 HISTORY OF PRESENT ILLNESS: The patient is a 44-year-old gentleman who initially came in with history of altered level of consciousness and hypoglycemia and vomiting. The patient recently was started on oral hypoglycemic. HOSPITAL COURSE: The patient had vomiting, subsequently needing to be intubated and mechanically ventilated. The patient had an echocardiogram done that showed ejection fraction of less than 40%. He was seen initially by Dr. Chavez and Frank Wilson. The patient went into acute renal failure requiring use of hemodialysis. The patient, during the procedure, had a placement of the dialysis catheter in the carotid artery and subsequently underwent surgery by Dr. Restrepo for removal and repair of the left carotid artery. The patient failed multiple extubation attempts. He subsequently underwent a tracheostomy. The patient was septic, requiring use of broad spectrum antibiotics. The patient also developed a decubitus ulcer that was followed up by Dr. Restrepo. The patient eventually was septic from the decubitus ulcer and underwent a debridement of the same. The patient was successfully weaned off from mechanical ventilation. His tracheostomy was downsized and he was eventually decannulated. The patient also was noted to have right-sided weakness. MRI showed a left frontoparietal infarct. The patient continued to be septic. At this time, I had an extensive discussion with the patient and the sister. I have explained to them the risk of the decubitus ulcer and the possibility of osteomyelitis and worsening sepsis and . They, however, wished to leave against medical advice. FINAL DIAGNOSES: * Acute respiratory failure status post intubation and mechanical ventilation. * Status post tracheostomy. * Aspiration pneumonia, with septic shock. * Hypertension. * [id number] systolic/diastolic heart failure. * Acute cerebrovascular accident, with right-sided weakness. * Infected stage IV sacral decubitus ulcer, with sepsis. * Acute renal failure status post dialysis likely secondary to vasomotor nephropathy/ATN. * Anemia, status post transfusions. * Diabetes mellitus. * ARDS. * AMA. MD BRENDON Rogers/AMISHA TID: [id number] RECEIPT: [id number]
== END 2024-10-05 11:00 | disposition left against medical advice (07) | DRG 3 ==
LOC: ER 10:02 → OVERFLOW 13:24 → CATH ICU 08-20 22:05 → ICU WEST 08-22 00:24 → ICU CENTRL 09-19 15:33 → TELE-CENTR 09-23 21:15 → CENTRAL 10-01 23:29
PROVIDERS: ADMIT Internal Medicine; ATTEND Internal Medicine
PROC: 0BC78ZZ Extirpation of Matter from Left Main Bronchus, Via Natural or Artificial Opening Endoscopic (ICD-10-PCS; 2024-08-19)
PROC: 0BC38ZZ Extirpation of Matter from Right Main Bronchus, Via Natural or Artificial Opening Endoscopic (ICD-10-PCS; 2024-08-19)
PROC: 0BH17EZ Insertion of Endotracheal Airway into Trachea, Via Natural or Artificial Opening (ICD-10-PCS; 2024-08-20)
PROC: 5A1955Z Respiratory Ventilation, Greater than 96 Consecutive Hours (ICD-10-PCS; 2024-08-20)
PROC: 02HV33Z Insertion of Infusion Device into Superior Vena Cava, Percutaneous Approach (ICD-10-PCS; 2024-08-20)
PROC: B548ZZA Ultrasonography of Superior Vena Cava, Guidance (ICD-10-PCS; 2024-08-20)
PROC: 06HY33Z Insertion of Infusion Device into Lower Vein, Percutaneous Approach (ICD-10-PCS; 2024-08-20)
PROC: 5A1D70Z Performance of Urinary Filtration, Intermittent, Less than 6 Hours Per Day (ICD-10-PCS; 2024-08-20)
PROC: 5A1D70Z Performance of Urinary Filtration, Intermittent, Less than 6 Hours Per Day (ICD-10-PCS; 2024-08-21)
PROC: 5A1D70Z Performance of Urinary Filtration, Intermittent, Less than 6 Hours Per Day (ICD-10-PCS; 2024-08-22)
PROC: 0BC78ZZ Extirpation of Matter from Left Main Bronchus, Via Natural or Artificial Opening Endoscopic (ICD-10-PCS; 2024-08-23)
PROC: 0BC38ZZ Extirpation of Matter from Right Main Bronchus, Via Natural or Artificial Opening Endoscopic (ICD-10-PCS; 2024-08-23)
PROC: 0B9D8ZX Drainage of Right Middle Lung Lobe, Via Natural or Artificial Opening Endoscopic, Diagnostic (ICD-10-PCS; 2024-08-23)
PROC: 5A1D70Z Performance of Urinary Filtration, Intermittent, Less than 6 Hours Per Day (ICD-10-PCS; 2024-08-23)
PROC: 03HY32Z Insertion of Monitoring Device into Upper Artery, Percutaneous Approach (ICD-10-PCS; 2024-08-24)
PROC: 0JH63XZ Insertion of Tunneled Vascular Access Device into Chest Subcutaneous Tissue and Fascia, Percutaneous Approach (ICD-10-PCS; 2024-08-25)
PROC: 06HY33Z Insertion of Infusion Device into Lower Vein, Percutaneous Approach (ICD-10-PCS; 2024-08-25)
PROC: 03PY0DZ Removal of Intraluminal Device from Upper Artery, Open Approach (ICD-10-PCS; 2024-08-25)
PROC: 03Q Upper Arteries, Repair (ICD-10-PCS; 2024-08-25)
PROC: 05QN0ZZ Repair Left Internal Jugular Vein, Open Approach (ICD-10-PCS; 2024-08-25)
PROC: 05JYXZZ Inspection of Upper Vein, External Approach (ICD-10-PCS; 2024-08-25)
PROC: 5A1D70Z Performance of Urinary Filtration, Intermittent, Less than 6 Hours Per Day (ICD-10-PCS; 2024-08-25)
PROC: 5A1D70Z Performance of Urinary Filtration, Intermittent, Less than 6 Hours Per Day (ICD-10-PCS; 2024-08-26)
PROC: 5A1D70Z Performance of Urinary Filtration, Intermittent, Less than 6 Hours Per Day (ICD-10-PCS; 2024-08-27)
PROC: 5A1D70Z Performance of Urinary Filtration, Intermittent, Less than 6 Hours Per Day (ICD-10-PCS; 2024-08-28)
PROC: 5A1D70Z Performance of Urinary Filtration, Intermittent, Less than 6 Hours Per Day (ICD-10-PCS; 2024-08-30)
PROC: 02HV33Z Insertion of Infusion Device into Superior Vena Cava, Percutaneous Approach (ICD-10-PCS; 2024-08-31)
PROC: B548ZZA Ultrasonography of Superior Vena Cava, Guidance (ICD-10-PCS; 2024-08-31)
PROC: 5A1D70Z Performance of Urinary Filtration, Intermittent, Less than 6 Hours Per Day (ICD-10-PCS; 2024-08-31)
PROC: 5A1D70Z Performance of Urinary Filtration, Intermittent, Less than 6 Hours Per Day (ICD-10-PCS; 2024-09-02)
PROC: 30233N1 Transfusion of Nonautologous Red Blood Cells into Peripheral Vein, Percutaneous Approach (ICD-10-PCS; 2024-09-03)
PROC: 5A1D70Z Performance of Urinary Filtration, Intermittent, Less than 6 Hours Per Day (ICD-10-PCS; 2024-09-03)
PROC: 5A1D70Z Performance of Urinary Filtration, Intermittent, Less than 6 Hours Per Day (ICD-10-PCS; 2024-09-04)
PROC: 5A1D70Z Performance of Urinary Filtration, Intermittent, Less than 6 Hours Per Day (ICD-10-PCS; 2024-09-07)
PROC: 0B110F4 Bypass Trachea to Cutaneous with Tracheostomy Device, Open Approach (ICD-10-PCS; 2024-09-10)
PROC: B246ZZ4 Ultrasonography of Right and Left Heart, Transesophageal (ICD-10-PCS; 2024-09-18)
PROC: 05H933Z Insertion of Infusion Device into Right Brachial Vein, Percutaneous Approach (ICD-10-PCS; 2024-09-19)
PROC: B54MZZA Ultrasonography of Right Upper Extremity Veins, Guidance (ICD-10-PCS; 2024-09-19)
PROC: 0B21XFZ Change Tracheostomy Device in Trachea, External Approach (ICD-10-PCS; 2024-09-28)
PROC: 0JB70ZZ Excision of Back Subcutaneous Tissue and Fascia, Open Approach (ICD-10-PCS; principal; 2024-09-30 12:18)
PROC: 02HV33Z Insertion of Infusion Device into Superior Vena Cava, Percutaneous Approach (ICD-10-PCS; 2024-10-02)
PROC: B548ZZA Ultrasonography of Superior Vena Cava, Guidance (ICD-10-PCS; 2024-10-02)
PROC: 02PYX3Z Removal of Infusion Device from Great Vessel, External Approach (ICD-10-PCS; 2024-10-05)
DX: A41.9 Sepsis, unspecified organism (principal); L89.154 Pressure ulcer of sacral region, stage 4; E11.10 Type 2 diabetes mellitus with ketoacidosis without coma; E11.00 Type 2 diabetes mellitus with hyperosmolarity without nonketotic hyperglycemic-hyperosmolar coma (NKHHC); J18.9 Pneumonia, unspecified organism; R65.21 Severe sepsis with septic shock; J69.0 Pneumonitis due to inhalation of food and vomit; N17.0 Acute kidney failure with tubular necrosis; I63.9 Cerebral infarction, unspecified; L89.153 Pressure ulcer of sacral region, stage 3; G92.8 Other toxic encephalopathy; J80 Acute respiratory distress syndrome; I50.43 Acute on chronic combined systolic (congestive) and diastolic (congestive) heart failure; I21.4 Non-ST elevation (NSTEMI) myocardial infarction; E87.3 Alkalosis; K92.2 Gastrointestinal hemorrhage, unspecified; E87.1 Hypo-osmolality and hyponatremia; T82.42XA Displacement of vascular dialysis catheter, initial encounter; N39.0 Urinary tract infection, site not specified; S15.002A Unspecified injury of left carotid artery, initial encounter; J95.03 Malfunction of tracheostomy stoma; G93.1 Anoxic brain damage, not elsewhere classified; Z99.11 Dependence on respirator [ventilator] status; I13.0 Hypertensive heart and chronic kidney disease with heart failure and stage 1 through stage 4 chronic kidney disease, or unspecified chronic kidney disease; E87.0 Hyperosmolality and hypernatremia; E87.6 Hypokalemia; Z20.822 Contact with and (suspected) exposure to COVID-19; E86.9 Volume depletion, unspecified; Z68.35 Body mass index [BMI] 35.0-35.9, adult; F17.210 Nicotine dependence, cigarettes, uncomplicated; E87.8 Other disorders of electrolyte and fluid balance, not elsewhere classified; E87.5 Hyperkalemia; E11.22 Type 2 diabetes mellitus with diabetic chronic kidney disease; B95.2 Enterococcus as the cause of diseases classified elsewhere; Z53.29 Procedure and treatment not carried out because of patient's decision for other reasons; R32 Unspecified urinary incontinence; H57.02 Anisocoria; N18.9 Chronic kidney disease, unspecified; E66.01 Morbid (severe) obesity due to excess calories; N40.0 Benign prostatic hyperplasia without lower urinary tract symptoms; Z82.49 Family history of ischemic heart disease and other diseases of the circulatory system; Z83.3 Family history of diabetes mellitus; Z79.899 Other long term (current) drug therapy; Z79.02 Long term (current) use of antithrombotics/antiplatelets; Z79.82 Long term (current) use of aspirin; Z74.01 Bed confinement status; Z79.4 Long term (current) use of insulin; Z86.73 Personal history of transient ischemic attack (TIA), and cerebral infarction without residual deficits
CPT/HCPCS: 36415; 36430; 36556; 36569; 36600; 36620; 70450; 70551; 71045; 73501; 73590; 74018; 74176; 76000; 76937; 80048; 80053; 80061; 80074; 80202; 80307; 80320; 81001; 82010; 82150; 82270; 82550; 82565; 82570; 82805; 82962; 83036; 83605; 83690; 83735; 83880; 84100; 84132; 84300; 84439; 84443; 84478; 84481; 84484; 85007; 85014; 85018; 85025; 85027; 85379; 85610; 85730; 86850; 86900; 86901; 86920; 87040; 87070; 87077; 87081; 87086; 87186; 87205; 87426; 87804; 90935; 92610; 93005; 93306; 93312; 93886; 94002; 94003; 94640; 95819; 96365; 96368; 96375; 97110; 97116; 97163; 97530; 99291; A4605; G0378; J0131; J0692; J1100; J1450; J1642; J1815; J1885; J1956; J2003; J2185; J2248; J2250; J2405; J2470; J2704; J3480; J3490; J7131; P9047; Q9956